=== PATIENT | female | born 1940 | race American Indian/Alaskan Native ===

== ENCOUNTER 2017-10-07 23:06 | Inpatient (IN) | payer MEDICAID ==
--- NOTE | 2017-10-07 23:17 | ED PDOC ---
Arrival/HPI - General Chief Complaint: Altered Mental Status Time Seen by Provider: 10/07/17 23:10 Historian: EMS - History of Present Illness Narrative History of Present Illness (Text): 10/07/17 23:17 Aditi Sylvester is a 77 year old female who presents to the Emergency department brought in by EMS for shortness of breath and altered mental status. Family states patient has been weak and not eating for the past few days. Patient was given Duoneb and IV fluids in the field. Patient noted to be lethargic on arrival to Emergency department. Limited HPI and ROS secondary to patient's acuity of condition. Time/Duration: Other (tonight) Symptom Onset: Gradual Symptom Course: Worsening Activities at Onset: Light Context: Home Past Medical History - Provider Review Nursing Documentation Reviewed: Yes - Psychiatric Hx Substance Use: No Family/Social History - Physician Review Nursing Documentation Reviewed: Yes Family/Social History: Unknown Family HX Smoking Status: Never Smoked Hx Alcohol Use: No Hx Substance Use: No Allergies/Home Meds Allergies/Adverse Reactions: Allergies Unobtainable Allergy (Verified 10/07/17 23:13) Home Medications: Home Meds Medication Instructions Recorded Confirmed Unobtainable 10/07/17 10/08/17 Review of Systems - Review of Systems Systems not reviewed;Unavailable: Acuity of Condition Respiratory: SOB Neurological: Other (+altered mental status, +weakness) Physical Exam Vital Signs Reviewed: Yes Vital Signs Temp Pulse Resp BP Pulse Ox 10/08/17 10:11 74 18 139/93 H 100 10/08/17 08:10 99.0 F 10/08/17 07:30 69 19 171/85 H 100 10/08/17 06:54 69 19 150/99 H 100 10/08/17 05:00 77 18 129/90 100 10/08/17 03:05 81 23 134/97 H 100 10/08/17 00:25 91 H 23 132/71 100 10/07/17 23:39 100.7 F H 95 H 22 116/87 100 Temperature: Febrile Blood Pressure: Normal Pulse: Regular Appearance: Positive for: Non-Toxic Pain Distress: None Mental Status: Positive for: Lethargic - Systems Exam Head: Present: Atraumatic, Normocephalic Pupils: Present: PERRL Extroacular Muscles: Present: EOMI Conjunctiva: Present: Normal Mouth: Present: Moist Mucous Membranes Neck: Present: Normal Range of Motion Respiratory/Chest: Present: Clear to Auscultation Cardiovascular: Present: Regular Rate and Rhythm, Normal S1, S2. No: Murmurs Abdomen: Present: Normal Bowel Sounds. No: Tenderness, Distention, Peritoneal Signs Upper Extremity: Present: Normal Inspection. No: Cyanosis, Edema Lower Extremity: Present: Normal Inspection. No: Edema Neurological: Present: CN II-XII Intact, Motor Func Grossly Intact Skin: Present: Warm, Dry, Normal Color. No: Rashes Psychiatric: Present: Lethargic Medical Decision Making ED Course and Treatment: 10/07/17 23:17 Impression: 77 year old female brought in by EMS for AMS and shortness of breath. Plan: -- CT Head w/o contrast -- EKG -- Chest X-ray -- Labs, ABG, cardiac enzymes, ammonia level, alcohol level, blood cultures -- Urinalysis, urine drug screen, urine cultures -- Reassess and disposition Progress Notes: 10/07/17 23:49 Reviewed EKG, sinus rhythm at 94 bpm. LAD. LVH. Non-specific ST/T wave changes. 10/08/17 02:29 Chest X-ray reviewed, shows no acute processes. 10/08/17 02:33 Case discussed with medical director cotton farmer, who is aware and agrees with plan. 10/08/17 03:[address] Kang, who is aware and agrees with plan. Pt admitted for dehydration under the hospitalist service. - Lab Interpretations Microbiology Results: Microbiology Results 10/07/17 23:39 Blood-Venous Blood Culture - Preliminary NO GROWTH AFTER 3 DAYS 10/07/17 23:15 Blood-Venous Blood Culture - Preliminary NO GROWTH AFTER 3 DAYS 10/08/17 03:03 Urine,Clean Catch Urine Culture - Final No Growth (<1,000 CFU/ML) Lab Results: 10/08/17 05:50 10/08/17 05:50 Lab Results 10/08/17 07:50: pCO2 63 H, pO2 139.0 H, HCO3 31.7 H, ABG pH 7.31 L, ABG Total CO2 33.6 H, ABG O2 Saturation 99.9 H, ABG O2 Content 13.7 L, ABG Base Excess 4.2 H, ABG Hemoglobin 9.9 L, ABG Carboxyhemoglobin 1.8 H, POC ABG HHb (Measured ) 0.1, ABG Methemoglobin 1.4, ABG O2 Capacity 13.7 L, Hgb O2 Saturation 96.6, FiO2 40.0 10/08/17 05:50: RPR Nonreactive 10/08/17 05:50: TSH 3rd Generation 0.94 10/08/17 05:50: Vitamin B12 > 1000 H, Folate > 20.0 10/08/17 05:50: WBC 6.4 D, RBC 3.68, Hgb 10.7 L, Hct 37.6, MCV 102.2, MCH 29.1 , MCHC 28.5 L, RDW 14.4, Plt Count 223, MPV 10.8 10/08/17 05:50: Sodium 162 H*, Potassium 4.7, Chloride 121 H, Carbon Dioxide 29 , Anion Gap 17, BUN 108 H, Creatinine 4.6 H, Est GFR ( Amer) 11, Est GFR (Non-Af Amer) 9, Random Glucose 126 H, Calcium 8.7 10/08/17 03:03: Urine Opiates Screen Negative, Urine Methadone Screen Negative, Ur Barbiturates Screen Negative, Ur Phencyclidine Scrn Negative, Ur Amphetamines Screen Negative, U Benzodiazepines Scrn Negative, U Oth Cocaine Metabols Negative, U Cannabinoids Screen Negative 10/08/17 03:03: Urine Color Yellow, Urine Appearance Clear, Urine pH 6.0, Ur Specific [place] 1.015, Urine Protein 100 H, Urine Glucose (UA) Negative, Urine Ketones Negative, Urine Blood Trace-intact H, Urine Nitrate Negative, Urine Bilirubin Negative, Urine Urobilinogen 0.2, Ur Leukocyte Esterase Negative, Urine RBC 0 - 2, Urine WBC 0 - 2, Ur Epithelial Cells 0 - 2 10/08/17 01:04: Influenza Typ A,B (EIA) Negative for flu a/b 10/08/17 00:30: pCO2 65 H, pO2 416.0 H, HCO3 31.3 H, ABG pH 7.29 L, ABG Total CO2 33.3 H, ABG O2 Saturation 100.0 H, ABG Base Excess 2.8, ABG Potassium 4.5, Glucose 174 H, Lactate 1.1, FiO2 100.0, Sodium 162.0 H*, Chloride 126.0 H, Arterial Blood Potassium 4.5 10/07/17 23:39: Acetaminophen < 10.0 L 10/07/17 23:39: Ammonia 14 10/07/17 23:39: Alcohol, Quantitative < 10 10/07/17 23:39: Sodium 165 H*, Potassium 4.6, Chloride 122 H, Carbon Dioxide 31 , Anion Gap 16, BUN 110 H, Creatinine 4.9 H, Est GFR ( Amer) 10, Est GFR (Non-Af Amer) 9, Random Glucose 161 H, Calcium 8.8, Phosphorus 4.0, Magnesium 3.0 H, Total Bilirubin 0.3, AST 35, ALT 32, Alkaline Phosphatase 77, Lactate Dehydrogenase 661, Total Creatine Kinase 83, Troponin I 0.06, Total Protein 7.5 , Albumin 3.6, Globulin 3.9, Albumin/Globulin Ratio 0.9 L 10/07/17 23:39: PT 10.7, INR 0.94, APTT 34.5 10/07/17 23:39: WBC 8.1, RBC 3.91, Hgb 11.5 L, Hct 39.9, MCV 102.0, MCH 29.4, MCHC 28.8 L, RDW 14.4, Plt Count 238, MPV 11.3 H, Gran % 57.1, Lymph % (Auto) 31.8, Rhea % (Auto) 10.9 H, Eos % (Auto) 0.0 L, Baso % (Auto) 0.2, Gran # 4.63, Lymph # 2.6, Rhea # 0.9 H, Eos # 0.0, Baso # 0.02 10/07/17 23:28: POC Glucose (mg/dL) 180 H I have reviewed the lab results: Yes - RAD Interpretation Radiology Orders: 10/07/17 23:21 HEAD W/O CONTRAST [CT] Stat 10/08/17 00:21 CHEST ONE VIEW [RAD] Stat 10/08/17 04:13 HEAD W/O CONTRAST [CT] Stat Inspector Technician: ED Physician - EKG Interpretation Interpreted by ED Physician: Yes Type: 12 lead EKG - Medication Orders Current Medication Orders: Acetaminophen (Tylenol 325mg Tab) 650 mg PO Q4H PRN PRN Reason: Fever >100.4 F Albuterol/Ipratropium (Duoneb 3 Mg/0.5 Mg (3 Ml) Ud) 3 ml IH [id number] [facility] Last Admin: 10/11/17 14:02 Dose: 3 ml Cholecalciferol (Vitamin D) 2,000 intlu PO DAILY [facility] Last Admin: 10/11/17 09:04 Dose: 2,000 intlu Famotidine (Pepcid) 20 mg IVP DAILY [facility] Last Admin: 10/11/17 12:11 Dose: Heparin Sodium (Porcine) (Heparin) 5,000 units SC Q8 DAVID PRN Reason: Protocol Last Admin: 10/11/17 13:55 Dose: 5,000 units Subcutaneous Administrations Document 10/11/17 13:55 GLI (Rec: 10/11/17 13:[address]) Injection Site MAR Injection Site Right Abdomen Charges for Administration # of Subcutaneous Administrations 1 Hydralazine HCl (Apresoline) 10 mg IVP Q8H PRN PRN Reason: Systolic Blood Pressure Last Admin: 10/10/17 11:15 Dose: 10 mg IVP Administration Document 10/10/17 11:15 GLI (Rec: 10/10/17 11:[address]) Charges for Administration # of IVP Administrations 1 MAR Pulse and Blood Pressure Document 10/10/17 11:15 GLI (Rec: 10/10/17 11:15 [facility] Pulse Pulse Rate (60-90) 41 Blood Pressure Blood Pressure (100/60-150/90) 184/103 Ceftriaxone Sodium (Rocephin 1 Gram Ivpb) 1 gm in 100 mls @ 100 mls/hr IVPB DAILY [facility] PRN Reason: Protocol Last Admin: 10/11/17 09:04 Dose: 100 mls/hr eMAR Start Stop Document 10/11/17 09:04 GLI (Rec: 10/11/17 09:04 GLI [id number] Intravenous Solution Start Date 10/11/17 Start Time 09:04 End Date 10/11/17 Azithromycin (Zithromax 500mg In Ns) 500 mg in 250 mls @ 167 mls/hr IVPB DAILY [facility] PRN Reason: Protocol Last Admin: 10/11/17 09:08 Dose: 167 mls/hr eMAR Start Stop Document 10/11/17 09:08 GLI (Rec: 10/11/17 09:08 GLI [id number]) Intravenous Solution Start Date 10/11/17 Start Time 09:08 End Date 10/11/17 Midazolam 100 mg/100ml in NS (Midazolam 100 Mg/100ml In Ns) 100 mg in 100 mls @ 1 mls/hr IV .Q24H PRN; Protocol; 1 MG/HR PRN Reason: Agitation Last Admin: 10/11/17 12:20 Dose: 2 mg/hr, 2 mls/hr eMAR Start Stop Document 10/11/17 12:20 GLI (Rec: 10/11/17 12:21 [id number]) Intravenous Solution Start Date 10/11/17 Start Time 12:21 End Date 10/11/17 Titration Intervention Document 10/11/17 12:20 GLI (Rec: 10/11/17 12:21 GLI [id number]) Titration Intake Cumulative Intake (Rx) 100 Waste Amount 0 Container Volume 100 Titration Dosing Titration Dose 2 IV Rate 2 Intake/Decrease Started/Running Cumulative Dose 100 Methylprednisolone (Solu-Medrol) 20 mg IVP Q12 [facility] Last Admin: 10/11/17 12:11 Dose: Discontinued Medications Albuterol/Ipratropium (Duoneb 3 Mg/0.5 Mg (3 Ml) Ud) 3 ml IH Q4H [facility] Last Admin: 10/08/17 20:23 Dose: 3 ml Albuterol/Ipratropium (Duoneb 3 Mg/0.5 Mg (3 Ml) Ud) 3 ml IH [id number] Last Admin: 10/11/17 08:43 Dose: Calcium Gluconate (Calcium Gluconate Iv) 1,000 mg IVP ONCE ONE Stop: 10/09/17 05:13 Last Admin: 10/09/17 05:31 Dose: 1,000 mg IVP Administration Document 10/09/17 05:31 A (Rec: 10/09/17 05:31 [facility] [id number]) Charges for Administration # of IVP Administrations 1 Dextrose (Dextrose 50% Inj) 50 ml IVP ONCE ONE Stop: 10/09/17 05:13 Last Admin: 10/09/17 05:30 Dose: 50 ml IVP Administration Document 10/09/17 05:30 [facility] (Rec: 10/09/17 05:31 [id number] Charges for Administration # of IVP Administrations 1 Sodium Chloride (Sodium Chloride 0.45%) 1,000 mls @ 200 mls/hr IV .Q5H [facility] Last Admin: 10/08/17 07:10 Dose: 200 mls/hr eMAR Start Stop Document 10/08/17 07:10 JOL (Rec: 10/08/17 07:10 [id number]) Intravenous Solution Start Date 10/08/17 Start Time 07:10 Sodium Chloride (Sodium Chloride 0.45%) 1,000 mls @ 100 mls/hr IV .Q10H [facility] Last Admin: 10/08/17 13:37 Dose: 100 mls/hr eMAR Start Stop Document 10/08/17 13:37 JUR (Rec: 10/08/17 13:37 JUR [facility]) Intravenous Solution Start Date 10/08/17 Start Time 12:30 Sodium Chloride (Sodium Chloride 0.9%) 1,000 mls @ 60 mls/hr IV .[id number] [facility] Last Admin: 10/08/17 15:31 Dose: 60 mls/hr eMAR Start Stop Document 10/08/17 15:31 JUR (Rec: 10/08/17 15:31 JUR [facility]) Intravenous Solution Start Date 10/08/17 Start Time 15:15 Propofol (Diprivan) 1,000 mg in 100 mls @ 1.837 mls/hr IV .Q24H PRN; Protocol; 5 MCG/KG/MIN PRN Reason: TITRATE PER MD ORDER Last Titration: 10/10/17 03:00 Dose: 13.6 mcg/kg/min, 5 mls/hr Yates Agitation Sedation Document 10/10/17 03:00 REGINA (Rec: 10/10/17 06:56 REGINA [id number]) Yates Agitation Sedation Scale Yates Agitation Sedation Scale Score +1 Restless Anxious bu movements not aggressive vigorous Titration Intervention Document 10/10/17 03:00 REGINA (Rec: 10/10/17 06:56 REGINA [id number]) Titration Intake Titration Intake 10 Cumulative Intake 10 Cumulative Intake (Rx) 110 Waste Amount 0 Container Volume 90 Titration Dosing Titration Dose 13.6 IV Rate 5 Intake/Decrease Decreased Cumulative Dose 1100 Lactated Ringer's (Lactated Ringer's) 1,000 mls @ 150 mls/hr IV .Q6H40M [facility] Last Admin: 10/08/17 16:56 Dose: 150 mls/hr eMAR Start Stop Document 10/08/17 16:56 JUR (Rec: 10/08/17 16:56 JUR [facility]) Intravenous Solution Start Date 10/08/17 Start Time 16:40 Lactated Ringer's (Lactated Ringer's) 1,000 mls @ 100 mls/hr IV .Q10H [facility] Last Admin: 10/08/17 21:52 Dose: 100 mls/hr eMAR Start Stop Document 10/08/17 21:52 MHA (Rec: 10/08/17 21:52 [facility]) Intravenous Solution Start Date 10/08/17 Start Time 21:52 Lactated Ringer's (Lactated Ringer's) 1,000 mls @ 125 mls/hr IV .Q8H [facility] Last Admin: 10/09/17 05:50 Dose: 125 mls/hr eMAR Start Stop Document 10/09/17 05:50 MHA (Rec: 10/09/17 05:[address]) Intravenous Solution Start Date 10/09/17 Start Time 05:50 Sodium Chloride (Sodium Chloride 0.45%) 1,000 mls @ 150 mls/hr IV .Q6H40M DAVID Sodium Chloride (Sodium Chloride 0.45%) 1,000 mls @ 100 mls/hr IV .Q10H [facility] Last Admin: 10/10/17 01:30 Dose: 100 mls/hr eMAR Start Stop Document 10/10/17 01:30 REGINA (Rec: 10/10/17 03:20 REGINA [place] [id number]) Intravenous Solution Start Date 10/10/17 Start Time 01:30 End Date 10/10/17 End time 11:30 Total Infusion Time 600 Sodium Chloride (Sodium Chloride 0.45%) 1,000 mls @ 50 mls/hr IV .Q20H [facility] Last Admin: 10/11/17 06:43 Dose: 50 mls/hr eMAR Start Stop Document 10/11/17 06:43 PM (Rec: 10/11/17 06:44 PM [id number]) Intravenous Solution Start Date 10/10/17 Start Time 10:15 Insulin Human Regular (Humulin R) 10 units IVP ONCE ONE Stop: 10/09/17 05:12 Last Admin: 10/09/17 05:49 Dose: 10 units MAR Blood Glucose Document 10/09/17 05:49 MHA (Rec: 10/09/17 05:49 MHA [id number] Blood Glucose Finger Stick Blood Glucose (70-120) 104 IVP Administration Document 10/09/17 05:49 MHA (Rec: 10/09/17 05:49 MHA [id number]) Charges for Administration # of IVP Administrations 1 Methylprednisolone (Solu-Medrol) 40 mg IVP Q8H [facility] Last Admin: 10/10/17 05:12 Dose: 40 mg IVP Administration Document 10/10/17 05:12 REGINA (Rec: 10/10/17 05:12 REGINA [id number]) Charges for Administration # of IVP Administrations 1 Methylprednisolone (Solu-Medrol) 40 mg IVP Q12 [facility] Last Admin: 10/11/17 09:04 Dose: 40 mg IVP Administration Document 10/11/17 09:04 GLI (Rec: 10/11/17 09:04 GLI [id number]) Charges for Administration # of IVP Administrations 1 Pantoprazole Sodium (Protonix Ec Tab) 40 mg PO 0600 [facility] Last Admin: 10/08/17 07:10 Dose: Not Given Non-Admin Reason: Patient Lethargic Pantoprazole Sodium (Protonix Inj) 40 mg IVP DAILY [facility] Last Admin: 10/11/17 09:03 Dose: 40 mg IVP Administration Document 10/11/17 09:03 GLI (Rec: 10/11/17 09:04 GLI [id number]) Charges for Administration # of IVP Administrations 1 Pneumococcal Polyvalent Vaccine (Pneumovax 23 Vaccine) 0.5 ml IM .ONCE ONE Stop: 10/08/17 13:34 - Scribe Statement The provider has reviewed the documentation as recorded by the Pabloibvivi Gusman Provider Scribe Attestation: All medical record entries made by the Scribe were at my direction and personally dictated by me. I have reviewed the chart and agree that the record accurately reflects my personal performance of the history, physical exam, medical decision making, and the department course for this patient. I have also personally directed, reviewed, and agree with the discharge instructions and disposition. Disposition/Present on Arrival - Present on Arrival Any Indicators Present on Arrival: No History of DVT/PE: No History of Uncontrolled Diabetes: No Urinary Catheter: No History of Decub. Ulcer: No History Surgical Site Infection Following: None - Disposition Have Diagnosis and Disposition been Completed?: Yes Diagnosis: Respiratory compromise, Dehydration Disposition: HOSPITALIZED Disposition Time: 07:00 Patient Problems: Current Active Problems Problem Status Onset Abnormal CT scan, head Acute Respiratory compromise Acute Toxic metabolic encephalopathy Acute Condition: SERIOUS
[2017-10-08 00:03] LABS: BASO # 0.02 K/mm3 (0.0-2.0); BASO % 0.2 % (0.0-3.0); GRAN # 4.63 (1.4-6.5); GRAN % 57.1 % (50.0-68.0); HEMOGLOBIN 11.5 g/dL (12.0-16.0); LYMPH # 2.6 (1.2-3.4); LYMPH % 31.8 % (22.0-35.0); MEAN CORPUSCULAR HEMOGLOBIN 29.4 pg (25.0-35.0); MEAN CORPUSCULAR HGB CONC 28.8 g/dl (31.0-37.0); MEAN PLATELET VOLUME 11.3 fl (7.0-11.0); MONO # 0.9 (0.1-0.6); MONO % 10.9 % (1.0-6.0); RBC 3.91 10^6/uL (3.5-6.1); RED CELL DISTRIBUTION WIDTH 14.4 % (11.5-14.5); WHITE BLOOD COUNT 8.1 10^3/ul (4.5-11.0)
[2017-10-08 00:18] LABS: INR 0.94 (0.93-1.08); PARTIAL THROMBOPLASTIN TIME 34.5 Seconds (25.1-36.5); PROTHROMBIN TIME 10.7 SECONDS (9.4-12.5)
[2017-10-08 00:31] LABS: TROPONIN I 0.06 ng/mL
[2017-10-08 00:37] LABS: ALB/GLOB RATIO 0.9 (1.1-1.8); ALBUMIN 3.6 g/dL (3.0-4.8); CALCIUM 8.8 mg/dL (8.4-10.5)
[2017-10-08] MEDS ORDERED: Sodium Chloride 0.9% 1,000 ML IV SCH ×2 (00:45→15:15)
[2017-10-08 00:54] LABS: ARTERIAL BLOOD GAS HCO3 31.3 mmol/L (21-28); ARTERIAL BLOOD GAS PCO2 65 mm/Hg (35-45); ARTERIAL BLOOD GAS PH 7.29 (7.35-7.45); ARTERIAL BLOOD GAS TCO2 33.3 mmol.L (22-28)
[2017-10-08] MEDS: Sodium Chloride 0.45% 1,000 ML IV SCH ×2 (01:15→07:10)
--- NOTE | 2017-10-08 03:20 | CT ---
EXAM: CT Head Without Intravenous Contrast EXAM DATE/TIME: 10/07/2017 11:21 PM CLINICAL HISTORY: 77 years old, female; Signs and symptoms; Altered mental status/memory loss; Additional info: AMS TECHNIQUE: Axial computed tomography images of the head/brain without intravenous contrast. All CT scans at this facility use one or more dose reduction techniques, viz.: automated exposure control; ma/kV adjustment per patient size (including targeted exams where dose is matched to indication; i.e. head); or iterative reconstruction technique. Coronal and sagittal reformatted images were created and reviewed. COMPARISON: No relevant prior studies available. FINDINGS: LIMITATIONS: Asymmetric positioning of the patient's head in the CT gantry. Mild streak/motion artifact. BRAIN: The left inferior temporal lobe is partially cut off of the scan. A 3 mm round hyperdense focus is seen in the visualized portions of the left inferior temporal lobe, image 1/series 4. This has a CT attenuation of 60 Hounsfield units. It could represent artifact, but cannot rule out a tiny focus of hemorrhage. 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 Areas of hypodensity in the white matter bilaterally, nonspecific in appearance, but most likely representing chronic small vessel ischemic changes, in a patient of this age. Diffuse, marked, age-related cortical atrophy and ventriculomegaly. No other significant abnormality identified. No acute extra-axial fluid collections visualized. No evidence of significant mass effect within the brain. VENTRICLES: See above. BONES/JOINTS: No acute fractures or other acute bony abnormality noted. SOFT TISSUES: No acute abnormality of the visualized soft tissues is seen. VASCULATURE: Vascular calcification and ectasia. SINUSES: Mucosal thickening in the right sphenoid sinus. Remaining visualized paranasal sinuses appear clear. MASTOID AIR CELLS: Fluid throughout the right mastoid air cells, compatible with right mastoiditis. Left mastoid air cells appear clear. IMPRESSION: - Artifact versus a tiny 3 mm focus of hemorrhage in the left inferior temporal lobe. The left inferior temporal lobe is partially cut off of the scan, and recommend reimaging through this area to confirm artifact versus a tiny hemorrhage, unless otherwise clinically indicated. - Otherwise, no evidence of a significant acute intracranial process. - Evidence of chronic ischemic changes, as described. - See above for remaining findings.
[2017-10-08 03:26] LABS: URINE BILIRUBIN NEGATIVE (NEGATIVE); URINE BLOOD TRACE-INTACT (NEGATIVE); URINE GLUCOSE (UA) NEGATIVE (NEGATIVE); URINE LEUKOCYTE ESTERASE NEGATIVE Leu/uL (NEGATIVE); URINE NITRATE NEGATIVE (NEGATIVE); URINE PROTEIN 100 mg/dL (<30 mg/dL); URINE UROBILINOGEN 0.2 E.U./dL (<1 E.U./dL)
[2017-10-08 03:34] LABS: BARBITURATES, UR NEGATIVE (NEGATIVE); BENZODIAZEPINES, UR NEGATIVE (NEGATIVE); OPIATES, UR NEGATIVE (NEGATIVE); PHENCYCLIDINE, UR NEGATIVE (NEGATIVE)
[2017-10-08 03:39] LABS: URINE APPEARANCE CLEAR (CLEAR); URINE COLOR YELLOW (YELLOW)
[2017-10-08 03:40] LABS: URINE EPITHELIAL CELLS 0 - 2 /hpf (0-5); URINE RBC 0 - 2 /hpf (0-2); URINE WBC 0 - 2 /hpf (0-6)
--- NOTE | 2017-10-08 04:32 | CP.PCM.HP ---
<Eladio Mckinney - Last Filed: 10/08/17 04:21> History of Present Illness - History of Present Illness History of Present Illness: 77 year old female with past medical history of hypertension, asthma, and questionable Parkinson's disease presents to the ED for 3 day history of AMS. Patient is accompanied by her , daughter, and son at bedside. Patient's family are poor historians and much of history obtained is from patient's daughter Kristyn, who was spoken with over the phone. Patient has had decreased appetite over the last several days and has not been eating or drinking. During this time, her mentation changed and she became more altered. At baseline, she is conversant and oriented according to her family at bedside. As per daughter Kristyn, patient started becoming forgetful in 2010 and in 2013 became much worse to where she would fall constantly and have trouble walking. Patient had a questionable stroke in 2006 in [place]. Patient moved from [place] in early 2016 along with her . Patient normally resides in [place] with daughter Kristyn, but has been visiting family in [place] since 09/14/17. She has short term memory problems, but is able to recall detention memories. Patient has has only been complaining of runny nose and congestion lately. Patient was at one time on Risperdone, but stopped due to possible extrapyramidal side effects. PMH: Hypertension, Asthma, ?Parkinson's PSH: No surgical history Family History: Noncontributory Social History: No smoking, alcohol, or illicit drug use. Patient requires help with ADLs, unable to ambulate on her own. Allergies: NKDA Medications: Unknown Present on Admission - Present on Admission Any Indicators Present on Admission: No Review of Systems - Review of Systems Systems not reviewed;Unavailable: Altered Mental Status Past Patient History - Past Social History Smoking Status: Never Smoked - PSYCHIATRIC Hx Substance Use: No Meds Allergies/Adverse Reactions: Allergies Allergy/AdvReac Type Severity Reaction Status Date / Time Unobtainable Allergy Verified 10/07/17 23:13 Physical Exam - Constitutional Appears: Non-toxic, No Acute Distress, Confused - Head Exam Head Exam: ATRAUMATIC, NORMAL INSPECTION, NORMOCEPHALIC - Eye Exam Eye Exam: Normal appearance - ENT Exam ENT Exam: Mucous Membranes Moist - Respiratory Exam Respiratory Exam: Clear to Auscultation Bilateral, NORMAL BREATHING PATTERN - Cardiovascular Exam Cardiovascular Exam: RRR, +S1, +S2 - GI/Abdominal Exam GI & Abdominal Exam: Normal Bowel Sounds, Soft. absent: Tenderness - Extremities Exam Extremities exam: Positive for: normal inspection. Negative for: calf tenderness, pedal edema - Neurological Exam Neurological exam: Alert Additional comments: Oriented x1 Resting tremor Lip smacking - Psychiatric Exam Psychiatric exam: Normal Mood - Skin Skin Exam: Intact, Normal Color, Warm Results - Vital Signs Recent Vital Signs: Last Vital Signs Temp 100.7 F H 10/07/17 23:39 Pulse 81 10/08/17 03:05 Resp 23 10/08/17 03:05 BP 134/97 H 10/08/17 03:05 Pulse Ox 100 10/08/17 03:05 - Labs Result Diagrams: 10/07/17 23:39 10/07/17 23:39 Labs: Laboratory Results - last 24 hr 10/08/17 10/08/17 03:03 03:03 Urine Color Yellow Urine Appearance Clear Urine pH 6.0 Ur Specific [place] 1.015 Urine Protein 100 H Urine Glucose (UA) Negative Urine Ketones Negative Urine Blood Trace-intact H Urine Nitrate Negative Urine Bilirubin Negative Urine Urobilinogen 0.2 Ur Leukocyte Esterase Negative Urine RBC 0 - 2 Urine WBC 0 - 2 Ur Epithelial Cells 0 - 2 Urine Opiates Screen Negative Urine Methadone Screen Negative Ur Barbiturates Screen Negative Ur Phencyclidine Scrn Negative Ur Amphetamines Screen Negative U Benzodiazepines Scrn Negative U Oth Cocaine Metabols Negative U Cannabinoids Screen Negative Assessment & Plan - Assessment and Plan (Free Text) Plan: 77 year old female with past medical history with hypertension, asthma, and questionable parkinson's disease presents with altered mental status in the setting of failure to thrive. Patient received Head CT in ED which showed possible intracranial hemorrhage vs artifact, will repeat. Patient also with hypernatremia, will correct slowly. Will obtain neurology consult. Patient also dehydrated as evidence of AVERY, will trend BUN/Creatinine. Patient also noted to have respiratory acidosis with metabolic compensation on ABG, will place patient BIPAP and recheck ABG with AM labs. 1. AMS Dementia vs Delirium TSH, RPR, Vitamin B12, Folate ordered Possibly secondary to Hypernatremia Repeat Head CT Neurology consult, Dr. Matias 2. Failure to thrive Dehydrated, no oral intake over several days Swallow eval Travel Journalist Referral Calorie count 3. Hypernatremia 1/2 NS at 200 cc/hr Will recheck with AM labs 4. AVERY Likely secondary to dehydration Urine electrolytes ordered Urine culture pending 5. Respiratory acidosis with metabolic compensation BIPAP for 2 hours Recheck ABG in AM 6. Prophylaxis Protonix Will hold DVT prophylaxis until intracranial hemorrhage is ruled out Faye, PGY-2 <PearlGiselaSony Q - Last Filed: 10/08/17 05:38> Physical Exam - ENT Exam ENT Exam: Mucous Membranes Dry. absent: Mucous Membranes Moist - Rectal Exam Rectal Exam: Deferred - Neurological Exam Additional comments: oriented x 1; follows commands - Psychiatric Exam Psychiatric exam: Flat Affect Results - Vital Signs Recent Vital Signs: Last Vital Signs Temp 100.7 F H 10/07/17 23:39 Pulse 77 10/08/17 05:00 Resp 18 10/08/17 05:00 BP 129/90 10/08/17 05:00 Pulse Ox 100 10/08/17 05:00 - Labs Result Diagrams: 10/07/17 23:39 10/07/17 23:39 Labs: Laboratory Results - last 24 hr 10/08/17 10/08/17 03:03 03:03 Urine Color Yellow Urine Appearance Clear Urine pH 6.0 Ur Specific [place] 1.015 Urine Protein 100 H Urine Glucose (UA) Negative Urine Ketones Negative Urine Blood Trace-intact H Urine Nitrate Negative Urine Bilirubin Negative Urine Urobilinogen 0.2 Ur Leukocyte Esterase Negative Urine RBC 0 - 2 Urine WBC 0 - 2 Ur Epithelial Cells 0 - 2 Urine Opiates Screen Negative Urine Methadone Screen Negative Ur Barbiturates Screen Negative Ur Phencyclidine Scrn Negative Ur Amphetamines Screen Negative U Benzodiazepines Scrn Negative U Oth Cocaine Metabols Negative U Cannabinoids Screen Negative Attending/Attestation - Attestation I have personally seen and examined this patient.: Yes I have fully participated in the care of the patient.: Yes I have reviewed all pertinent clinical information: Yes Notes (Text): 10/08/17 05:26 I agree with the note and exam by the resident with the addition/exception of the followin77 y/o Jeffrey female with a PMhx Htn and also likely with dementia (?Parkinson 's) presents to the ED accompanied by her family for failure to thrive. The patient has not been eating well over the past 6 months, however has rapidly deteriorated and not been her usual self according to the family over the past 2 -3 days. She has been increasingly weak and lethargic, without any ambulation despite assistance lately either. hypovolemic hyponatremia - bmp Q4 to avoid rapid overcorrection hypercapnic respiratory failure; will place on small trial of bipap and repeat ABG ?Acute CVA vs intraparenchymal bleed - CT reviewed, there's no midline shift or significant edema, so no indication for NeuroSx at this time, will consult neurology and place her on Neurochecks initially with increased frequency until Q4H FTT - nutrition eval for calorie count; social work faculty member eval; PT/OT
--- NOTE | 2017-10-08 04:50 | CT ---
EXAM: CT Head Without Intravenous Contrast EXAM DATE/TIME: 10/08/2017 4:13 AM CLINICAL HISTORY: 77 years old, female; Abnormal findings; Abnormal radiologic findings of head/skull; Not specified; Additional info: R/O intracranial hemorrhage TECHNIQUE: Axial computed tomography images of the head/brain without intravenous contrast. All CT scans at this facility use one or more dose reduction techniques, viz.: automated exposure control; ma/kV adjustment per patient size (including targeted exams where dose is matched to indication; i.e. head); or iterative reconstruction technique. Coronal and sagittal reformatted images were created and reviewed. COMPARISON: Head CT done about 2 hours earlier, at 2:18 a.m. FINDINGS: LIMITATIONS: Mild streak/motion artifact. BRAIN: Again seen in the left temporal lobe (image 13/series 4) is a tiny 3 mm round focus of hyperdensity, with a CT attenuation of 65 Hounsfield units, and cannot exclude a tiny focus of acute intraparenchymal hemorrhage in the left temporal lobe. Focal areas of low density in the basal ganglia bilaterally, most compatible with multiple, bilateral old/chronic lacunar infarcts. Areas of hypodensity in the white matter bilaterally, nonspecific in appearance, but most likely representing chronic small vessel ischemic changes, in a patient of this age. Diffuse, marked, age-related cortical atrophy and ventriculomegaly. No other significant abnormality identified. No acute extra-axial fluid collections visualized. No evidence of midline shift, ventricular effacement, basilar cistern effacement, or other significant intracranial mass effect. VENTRICLES: See above. BONES/JOINTS: No acute fractures or other acute bony abnormality noted. SOFT TISSUES: No acute abnormality of the visualized soft tissues is seen. VASCULATURE: Diffuse vascular calcification and ectasia. SINUSES: Mild sinus inflammatory disease. There is mild mucosal thickening in the right sphenoid and bilateral ethmoid sinuses. MASTOID AIR CELLS: Fluid throughout the right mastoid air cells, suspicious for mastoiditis. IMPRESSION: - 3 mm round hyperdensity in the left temporal lobe inferiorly, and cannot exclude a tiny acute intraparenchymal bleed. - See above for remaining findings.
[2017-10-08] MEDS ORDERED: Pantoprazole 40 mg EC Tab PO SCH (06:00)
[2017-10-08 06:17] LABS: HEMOGLOBIN 10.7 g/dL (12.0-16.0); MEAN CELL VOLUME 102.2 fl (80.0-105.0); MEAN CORPUSCULAR HEMOGLOBIN 29.1 pg (25.0-35.0); MEAN CORPUSCULAR HGB CONC 28.5 g/dl (31.0-37.0); MEAN PLATELET VOLUME 10.8 fl (7.0-11.0); RBC 3.68 10^6/uL (3.5-6.1); RED CELL DISTRIBUTION WIDTH 14.4 % (11.5-14.5); WHITE BLOOD COUNT 6.4 10^3/ul (4.5-11.0)
--- NOTE | 2017-10-08 07:12 | ED PDOC ---
Physical Exam Vital Signs Reviewed: Yes Vital Signs Temp Pulse Resp BP Pulse Ox 10/08/17 10:11 74 18 139/93 H 100 10/08/17 08:10 99.0 F 10/08/17 07:30 69 19 171/85 H 100 10/08/17 06:54 69 19 150/99 H 100 10/08/17 05:00 77 18 129/90 100 10/08/17 03:05 81 23 134/97 H 100 10/08/17 00:25 91 H 23 132/71 100 10/07/17 23:39 100.7 F H 95 H 22 116/87 100 Temperature: Febrile Blood Pressure: Normal Pulse: Tachycardic Respiratory Rate: Normal Finger Stick Blood Glucose: 180 Medical Decision Making ED Course and Treatment: 10/08/17 07:11 Patient endorsed to me by Dr. Garvey at 07:00, pending repeat ABG scheduled at 07:30 and ICU re-evaluation. 10/08/17 10:45 Patient accepted to the ICU. - Lab Interpretations Lab Results: 10/08/17 05:50 10/08/17 05:50 Lab Results 10/08/17 07:50: pCO2 63 H, pO2 139.0 H, HCO3 31.7 H, ABG pH 7.31 L, ABG Total CO2 33.6 H, ABG O2 Saturation 99.9 H, ABG O2 Content 13.7 L, ABG Base Excess 4.2 H, ABG Hemoglobin 9.9 L, ABG Carboxyhemoglobin 1.8 H, POC ABG HHb (Measured ) 0.1, ABG Methemoglobin 1.4, ABG O2 Capacity 13.7 L, Hgb O2 Saturation 96.6, FiO2 40.0 10/08/17 05:50: TSH 3rd Generation 0.94 10/08/17 05:50: Vitamin B12 > 1000 H, Folate > 20.0 10/08/17 05:50: WBC 6.4 D, RBC 3.68, Hgb 10.7 L, Hct 37.6, MCV 102.2, MCH 29.1 , MCHC 28.5 L, RDW 14.4, Plt Count 223, MPV 10.8 10/08/17 05:50: Sodium 162 H*, Potassium 4.7, Chloride 121 H, Carbon Dioxide 29 , Anion Gap 17, BUN 108 H, Creatinine 4.6 H, Est GFR ( Amer) 11, Est GFR (Non-Af Amer) 9, Random Glucose 126 H, Calcium 8.7 10/08/17 03:03: Urine Opiates Screen Negative, Urine Methadone Screen Negative, Ur Barbiturates Screen Negative, Ur Phencyclidine Scrn Negative, Ur Amphetamines Screen Negative, U Benzodiazepines Scrn Negative, U Oth Cocaine Metabols Negative, U Cannabinoids Screen Negative 10/08/17 03:03: Urine Color Yellow, Urine Appearance Clear, Urine pH 6.0, Ur Specific [place] 1.015, Urine Protein 100 H, Urine Glucose (UA) Negative, Urine Ketones Negative, Urine Blood Trace-intact H, Urine Nitrate Negative, Urine Bilirubin Negative, Urine Urobilinogen 0.2, Ur Leukocyte Esterase Negative, Urine RBC 0 - 2, Urine WBC 0 - 2, Ur Epithelial Cells 0 - 2 10/08/17 01:04: Influenza Typ A,B (EIA) Negative for flu a/b 10/08/17 00:30: pCO2 65 H, pO2 416.0 H, HCO3 31.3 H, ABG pH 7.29 L, ABG Total CO2 33.3 H, ABG O2 Saturation 100.0 H, ABG Base Excess 2.8, ABG Potassium 4.5, Glucose 174 H, Lactate 1.1, FiO2 100.0, Sodium 162.0 H*, Chloride 126.0 H, Arterial Blood Potassium 4.5 10/07/17 23:39: Acetaminophen < 10.0 L 10/07/17 23:39: Ammonia 14 10/07/17 23:39: Alcohol, Quantitative < 10 10/07/17 23:39: Sodium 165 H*, Potassium 4.6, Chloride 122 H, Carbon Dioxide 31 , Anion Gap 16, BUN 110 H, Creatinine 4.9 H, Est GFR ( Amer) 10, Est GFR (Non-Af Amer) 9, Random Glucose 161 H, Calcium 8.8, Phosphorus 4.0, Magnesium 3.0 H, Total Bilirubin 0.3, AST 35, ALT 32, Alkaline Phosphatase 77, Lactate Dehydrogenase 661, Total Creatine Kinase 83, Troponin I 0.06, Total Protein 7.5 , Albumin 3.6, Globulin 3.9, Albumin/Globulin Ratio 0.9 L 10/07/17 23:39: PT 10.7, INR 0.94, APTT 34.5 10/07/17 23:39: WBC 8.1, RBC 3.91, Hgb 11.5 L, Hct 39.9, MCV 102.0, MCH 29.4, MCHC 28.8 L, RDW 14.4, Plt Count 238, MPV 11.3 H, Gran % 57.1, Lymph % (Auto) 31.8, [place] % (Auto) 10.9 H, Eos % (Auto) 0.0 L, Baso % (Auto) 0.2, Gran # 4.63, Lymph # 2.6, [place] # 0.9 H, Eos # 0.0, Baso # 0.02 10/07/17 23:28: POC Glucose (mg/dL) 180 H - RAD Interpretation Radiology Orders: 10/07/17 23:21 HEAD W/O CONTRAST [CT] Stat 10/08/17 00:21 CHEST ONE VIEW [RAD] Stat 10/08/17 04:13 HEAD W/O CONTRAST [CT] Stat 10/08/17 06:26 MRA HEAD WITHOUT CONTRAST [MRI] Routine MRA NECK WITHOUT CONTRAST [MRI] Routine 10/08/17 06:27 BRAIN WITHOUT CONTRAST [MRI] Routine - Medication Orders Current Medication Orders: Acetaminophen (Tylenol 325mg Tab) 650 mg PO Q4H PRN PRN Reason: Fever >100.4 F Albuterol/Ipratropium (Duoneb 3 Mg/0.5 Mg (3 Ml) Ud) 3 ml IH Q4H [facility] Last Admin: 10/08/17 13:12 Dose: 3 ml Heparin Sodium (Porcine) (Heparin) 5,000 units SC Q8 [facility] PRN Reason: Protocol Last Admin: 10/08/17 13:36 Dose: 5,000 units Subcutaneous Administrations Document 10/08/17 13:36 JUR (Rec: 10/08/17 13:37 JUR [facility] [employer]) Injection Site MAR Injection Site Right Arm Charges for Administration # of Subcutaneous Administrations 1 Hydralazine HCl (Apresoline) 10 mg IVP Q8H PRN PRN Reason: Systolic Blood Pressure Sodium Chloride (Sodium Chloride 0.45%) 1,000 mls @ 100 mls/hr IV .Q10H [facility] Last Admin: 10/08/17 13:37 Dose: 100 mls/hr eMAR Start Stop Document 10/08/17 13:37 JUR (Rec: 10/08/17 13:37 JUR [facility]) Intravenous Solution Start Date 10/08/17 Start Time 12:30 Ceftriaxone Sodium (Rocephin 1 Gram Ivpb) 1 gm in 100 mls @ 100 mls/hr IVPB DAILY DAVID PRN Reason: Protocol Last Admin: 10/08/17 13:37 Dose: 100 mls/hr eMAR Start Stop Document 10/08/17 13:37 JUR (Rec: 10/08/17 13:37 JUR [facility]) Intravenous Solution Start Date 10/08/17 Start Time 13:37 End Date 10/08/17 End time 14:37 Total Infusion Time 60 Azithromycin (Zithromax 500mg In Ns) 500 mg in 250 mls @ 167 mls/hr IVPB DAILY DAVID PRN Reason: Protocol Methylprednisolone (Solu-Medrol) 40 mg IVP Q8H [facility] Last Admin: 10/08/17 13:36 Dose: 40 mg IVP Administration Document 10/08/17 13:36 JUR (Rec: 10/08/17 13:36 JUR [facility]) Charges for Administration # of IVP Administrations 1 Pantoprazole Sodium (Protonix Inj) 40 mg IVP DAILY [facility] Discontinued Medications Sodium Chloride (Sodium Chloride 0.45%) 1,000 mls @ 200 mls/hr IV .Q5H [facility] Last Admin: 10/08/17 07:10 Dose: 200 mls/hr eMAR Start Stop Document 10/08/17 07:10 JOShayne (Rec: 10/08/17 07:10 [id number] Intravenous Solution Start Date 10/08/17 Start Time 07:10 Pantoprazole Sodium (Protonix Ec Tab) 40 mg PO 0600 [facility] Last Admin: 10/08/17 07:10 Dose: Not Given Non-Admin Reason: Patient Lethargic Pneumococcal Polyvalent Vaccine (Pneumovax 23 Vaccine) 0.5 ml IM .ONCE ONE Stop: 10/08/17 13:34 Disposition/Present on Arrival - Present on Arrival Any Indicators Present on Arrival: No History of DVT/PE: No History of Uncontrolled Diabetes: No Urinary Catheter: No History of Decub. Ulcer: No History Surgical Site Infection Following: None - Disposition Have Diagnosis and Disposition been Completed?: Yes Diagnosis: Respiratory compromise Disposition: HOSPITALIZED Disposition Time: 10:45 Patient Plan: Admission, ICU Patient Problems: Current Active Problems Problem Status Onset Abnormal CT scan, head Acute Toxic metabolic encephalopathy Acute Condition: SERIOUS
[2017-10-08 07:39] LABS: CALCIUM 8.7 mg/dL (8.4-10.5)
[2017-10-08 07:58] LABS: ARTERIAL BLOOD GAS HCO3 31.7 mmol/L (21-28); ARTERIAL BLOOD GAS HEMOGLOBIN 9.9 g/dL (11.7-17.4); ARTERIAL BLOOD GAS O2 CAPACITY 13.7 mL/dl (16-24); ARTERIAL BLOOD GAS O2 CONTENT 13.7 ML/dl (15-23); ARTERIAL BLOOD GAS O2 SAT 99.9 % (95-98); ARTERIAL BLOOD GAS PCO2 63 mm/Hg (35-45); ARTERIAL BLOOD GAS PH 7.31 (7.35-7.45); ARTERIAL BLOOD GAS TCO2 33.6 mmol.L (22-28)
--- NOTE | 2017-10-08 08:45 | RAD ---
PROCEDURE: CHEST RADIOGRAPH, 1 VIEW HISTORY: pain COMPARISON: None available. FINDINGS: LUNGS: Prominent skin folds are seen bilaterally which mimic pneumothorax. However lung markings can be seen extending to the chest wall. There is no focal consolidation PLEURA: No pneumothorax or pleural fluid seen. CARDIOVASCULAR: Mild cardiomegaly and moderate aortic tortuosity OSSEOUS STRUCTURES: No significant abnormalities. VISUALIZED UPPER ABDOMEN: Normal. OTHER FINDINGS: None. IMPRESSION: No active disease.
--- NOTE | 2017-10-08 10:00 | CP.PCM.CON ---
<Khadijah Faith - Last Filed: 10/08/17 13:51> History of Present Illness - History of Present Illness History of Present Illness: Please note history as per chart as patient was altered. Contact: daughter Kristyn and Parul 77yo female PMHx HTN, asthma, questionable Parkinson's disease presented to ED with 3 day history of AMS. Patient is accompanied by her , daughter, and son at bedside. As per night resident note, patient's daughter, Kristyn, who was spoken with over the phone. Patient had decreased appetite over the last several days and had not been eating or drinking. During this time, mentation changed and she became more altered. As per daughter Kristyn, patient started becoming forgetful in 2010 and in 2013 became much worse to where she had unstable gait and frequent falls. Patient had questionable stroke in 2006 in [place]. Patient has short term memory problems, but is able to recall jail memories. Patient was at one time on Risperdone, but stopped due to possible extrapyramidal side effects. PMHx: Hypertension, Asthma, ?Parkinson's PSurgHx: No surgical history FamHx: Noncontributory SocHx: No smoking, alcohol, or illicit drug use. Patient requires help with ADLs , unable to ambulate on her own. Patient moved from [place] in early 2016 along with her . Patient normally resides in [place] with daughter Kristyn, but has been visiting family in [place] since 09/14/17. All: NKDA Meds: Unknown Review of Systems - Review of Systems Systems not reviewed;Unavailable: Altered Mental Status Past Patient History - Past Social History Smoking Status: Never Smoked - PSYCHIATRIC Hx Substance Use: No Meds Allergies/Adverse Reactions: Allergies Allergy/AdvReac Type Severity Reaction Status Date / Time Unobtainable Allergy Verified 10/07/17 23:13 - Medications Medications: Current Medications Acetaminophen (Tylenol 325mg Tab) 650 mg PO Q4H PRN PRN Reason: Fever >100.4 F Sodium Chloride (Sodium Chloride 0.45%) 1,000 mls @ 200 mls/hr IV .Q5H [facility] Last Admin: 10/08/17 07:10 Dose: 200 mls/hr Pantoprazole Sodium (Protonix Ec Tab) 40 mg PO 0600 [facility] Last Admin: 10/08/17 07:10 Dose: Not Given Physical Exam - Constitutional Appears: Confused - Head Exam Head Exam: ATRAUMATIC, NORMAL INSPECTION, NORMOCEPHALIC - Eye Exam Eye Exam: Normal appearance. absent: Conjunctival injection, Scleral icterus Pupil Exam: NORMAL ACCOMODATION - ENT Exam ENT Exam: Mucous Membranes Dry Additional comments: BiPAP in place - Respiratory Exam Respiratory Exam: Decreased Breath Sounds, NORMAL BREATHING PATTERN. absent: Accessory Muscle Use, Rales, Rhonchi, Wheezes Additional comments: on BiPAP (18, 5, 40) - Cardiovascular Exam Cardiovascular Exam: +S1, +S2. absent: Bradycardia, Tachycardia - GI/Abdominal Exam GI & Abdominal Exam: Normal Bowel Sounds, Soft. absent: Tenderness - Extremities Exam Extremities exam: Positive for: normal capillary refill, normal inspection, pedal pulses present. Negative for: pedal edema - Neurological Exam Neurological exam: Alert, Altered Additional comments: resting tremor - Skin Skin Exam: Dry, Intact, Normal Color, Warm Results - Vital Signs Recent Vital Signs: Last Vital Signs Temp 99.0 F 10/08/17 08:10 Pulse 69 10/08/17 07:30 Resp 19 10/08/17 07:30 BP 171/85 H 10/08/17 07:30 Pulse Ox 100 10/08/17 07:30 - Labs Result Diagrams: 10/08/17 05:50 10/08/17 13:10 Labs: Laboratory Results - last 24 hr 10/07/17 10/07/17 10/07/17 23:28 23:39 23:39 WBC 8.1 RBC 3.91 Hgb 11.5 L Hct 39.9 MCV 102.0 MCH 29.4 MCHC 28.8 L RDW 14.4 Plt Count 238 MPV 11.3 H Gran % 57.1 Lymph % (Auto) 31.8 [place] % (Auto) 10.9 H Eos % (Auto) 0.0 L Baso % (Auto) 0.2 Gran # 4.63 Lymph # 2.6 [place] # 0.9 H Eos # 0.0 Baso # 0.02 PT 10.7 INR 0.94 APTT 34.5 pCO2 pO2 HCO3 ABG pH ABG Total CO2 ABG O2 Saturation ABG O2 Content ABG Base Excess ABG Hemoglobin ABG Carboxyhemoglobin POC ABG HHb (Measured) ABG Methemoglobin ABG O2 Capacity ABG Potassium Hgb O2 Saturation Glucose Lactate FiO2 Sodium Potassium Chloride Carbon Dioxide Anion Gap BUN Creatinine Est GFR ( Amer) Est GFR (Non-Af Amer) POC Glucose (mg/dL) 180 H Random Glucose Calcium Phosphorus Magnesium Total Bilirubin AST ALT Alkaline Phosphatase Ammonia Lactate Dehydrogenase Total Creatine Kinase Troponin I Total Protein Albumin Globulin Albumin/Globulin Ratio TSH 3rd Generation Arterial Blood Potassium Urine Color Urine Appearance Urine pH Ur Specific [place] Urine Protein Urine Glucose (UA) Urine Ketones Urine Blood Urine Nitrate Urine Bilirubin Urine Urobilinogen Ur Leukocyte Esterase Urine RBC Urine WBC Ur Epithelial Cells Urine Opiates Screen Urine Methadone Screen Acetaminophen Ur Barbiturates Screen Ur Phencyclidine Scrn Ur Amphetamines Screen U Benzodiazepines Scrn U Oth Cocaine Metabols U Cannabinoids Screen Alcohol, Quantitative Influenza Typ A,B (EIA) 10/07/17 10/07/17 10/07/17 23:39 23:39 23:39 WBC RBC Hgb Hct MCV MCH MCHC RDW Plt Count MPV Gran % Lymph % (Auto) [place] % (Auto) Eos % (Auto) Baso % (Auto) Gran # Lymph # [place] # Eos # Baso # PT INR APTT pCO2 pO2 HCO3 ABG pH ABG Total CO2 ABG O2 Saturation ABG O2 Content ABG Base Excess ABG Hemoglobin ABG Carboxyhemoglobin POC ABG HHb (Measured) ABG Methemoglobin ABG O2 Capacity ABG Potassium Hgb O2 Saturation Glucose Lactate FiO2 Sodium 165 H* Potassium 4.6 Chloride 122 H Carbon Dioxide 31 Anion Gap 16 BUN 110 H Creatinine 4.9 H Est GFR ( Amer) 10 Est GFR (Non-Af Amer) 9 POC Glucose (mg/dL) Random Glucose 161 H Calcium 8.8 Phosphorus 4.0 Magnesium 3.0 H Total Bilirubin 0.3 AST 35 ALT 32 Alkaline Phosphatase 77 Ammonia 14 Lactate Dehydrogenase 661 Total Creatine Kinase 83 Troponin I 0.06 Total Protein 7.5 Albumin 3.6 Globulin 3.9 Albumin/Globulin Ratio 0.9 L TSH 3rd Generation Arterial Blood Potassium Urine Color Urine Appearance Urine pH Ur Specific [place] Urine Protein Urine Glucose (UA) Urine Ketones Urine Blood Urine Nitrate Urine Bilirubin Urine Urobilinogen Ur Leukocyte Esterase Urine RBC Urine WBC Ur Epithelial Cells Urine Opiates Screen Urine Methadone Screen Acetaminophen Ur Barbiturates Screen Ur Phencyclidine Scrn Ur Amphetamines Screen U Benzodiazepines Scrn U Oth Cocaine Metabols U Cannabinoids Screen Alcohol, Quantitative < 10 Influenza Typ A,B (EIA) 10/07/17 10/08/17 10/08/17 23:39 00:30 01:04 WBC RBC Hgb Hct MCV MCH MCHC RDW Plt Count MPV Gran % Lymph % (Auto) [place] % (Auto) Eos % (Auto) Baso % (Auto) Gran # Lymph # [place] # Eos # Baso # PT INR APTT pCO2 65 H pO2 416.0 H HCO3 31.3 H ABG pH 7.29 L ABG Total CO2 33.3 H ABG O2 Saturation 100.0 H ABG O2 Content ABG Base Excess 2.8 ABG Hemoglobin ABG Carboxyhemoglobin POC ABG HHb (Measured) ABG Methemoglobin ABG O2 Capacity ABG Potassium 4.5 Hgb O2 Saturation Glucose 174 H Lactate 1.1 FiO2 100.0 Sodium 162.0 H* Potassium Chloride 126.0 H Carbon Dioxide Anion Gap BUN Creatinine Est GFR ( Amer) Est GFR (Non-Af Amer) POC Glucose (mg/dL) Random Glucose Calcium Phosphorus Magnesium Total Bilirubin AST ALT Alkaline Phosphatase Ammonia Lactate Dehydrogenase Total Creatine Kinase Troponin I Total Protein Albumin Globulin Albumin/Globulin Ratio TSH 3rd Generation Arterial Blood Potassium 4.5 Urine Color Urine Appearance Urine pH Ur Specific [place] Urine Protein Urine Glucose (UA) Urine Ketones Urine Blood Urine Nitrate Urine Bilirubin Urine Urobilinogen Ur Leukocyte Esterase Urine RBC Urine WBC Ur Epithelial Cells Urine Opiates Screen Urine Methadone Screen Acetaminophen < 10.0 L Ur Barbiturates Screen Ur Phencyclidine Scrn Ur Amphetamines Screen U Benzodiazepines Scrn U Oth Cocaine Metabols U Cannabinoids Screen Alcohol, Quantitative Influenza Typ A,B (EIA) Negative for flu a/b 10/08/17 10/08/17 10/08/17 03:03 03:03 05:50 WBC RBC Hgb Hct MCV MCH MCHC RDW Plt Count MPV Gran % Lymph % (Auto) [place] % (Auto) Eos % (Auto) Baso % (Auto) Gran # Lymph # [place] # Eos # Baso # PT INR APTT pCO2 pO2 HCO3 ABG pH ABG Total CO2 ABG O2 Saturation ABG O2 Content ABG Base Excess ABG Hemoglobin ABG Carboxyhemoglobin POC ABG HHb (Measured) ABG Methemoglobin ABG O2 Capacity ABG Potassium Hgb O2 Saturation Glucose Lactate FiO2 Sodium 162 H* Potassium 4.7 Chloride 121 H Carbon Dioxide 29 Anion Gap 17 BUN 108 H Creatinine 4.6 H Est GFR ( Amer) 11 Est GFR (Non-Af Amer) 9 POC Glucose (mg/dL) Random Glucose 126 H Calcium 8.7 Phosphorus Magnesium Total Bilirubin AST ALT Alkaline Phosphatase Ammonia Lactate Dehydrogenase Total Creatine Kinase Troponin I Total Protein Albumin Globulin Albumin/Globulin Ratio TSH 3rd Generation Arterial Blood Potassium Urine Color Yellow Urine Appearance Clear Urine pH 6.0 Ur Specific [place] 1.015 Urine Protein 100 H Urine Glucose (UA) Negative Urine Ketones Negative Urine Blood Trace-intact H Urine Nitrate Negative Urine Bilirubin Negative Urine Urobilinogen 0.2 Ur Leukocyte Esterase Negative Urine RBC 0 - 2 Urine WBC 0 - 2 Ur Epithelial Cells 0 - 2 Urine Opiates Screen Negative Urine Methadone Screen Negative Acetaminophen Ur Barbiturates Screen Negative Ur Phencyclidine Scrn Negative Ur Amphetamines Screen Negative U Benzodiazepines Scrn Negative U Oth Cocaine Metabols Negative U Cannabinoids Screen Negative Alcohol, Quantitative Influenza Typ A,B (EIA) 10/08/17 10/08/17 10/08/17 05:50 05:50 07:50 WBC 6.4 D RBC 3.68 Hgb 10.7 L Hct 37.6 MCV 102.2 MCH 29.1 MCHC 28.5 L RDW 14.4 Plt Count 223 MPV 10.8 Gran % Lymph % (Auto) [place] % (Auto) Eos % (Auto) Baso % (Auto) Gran # Lymph # [place] # Eos # Baso # PT INR APTT pCO2 63 H pO2 139.0 H HCO3 31.7 H ABG pH 7.31 L ABG Total CO2 33.6 H ABG O2 Saturation 99.9 H ABG O2 Content 13.7 L ABG Base Excess 4.2 H ABG Hemoglobin 9.9 L ABG Carboxyhemoglobin 1.8 H POC ABG HHb (Measured) 0.1 ABG Methemoglobin 1.4 ABG O2 Capacity 13.7 L ABG Potassium Hgb O2 Saturation 96.6 Glucose Lactate FiO2 40.0 Sodium Potassium Chloride Carbon Dioxide Anion Gap BUN Creatinine Est GFR ( Amer) Est GFR (Non-Af Amer) POC Glucose (mg/dL) Random Glucose Calcium Phosphorus Magnesium Total Bilirubin AST ALT Alkaline Phosphatase Ammonia Lactate Dehydrogenase Total Creatine Kinase Troponin I Total Protein Albumin Globulin Albumin/Globulin Ratio TSH 3rd Generation 0.94 Arterial Blood Potassium Urine Color Urine Appearance Urine pH Ur Specific [place] Urine Protein Urine Glucose (UA) Urine Ketones Urine Blood Urine Nitrate Urine Bilirubin Urine Urobilinogen Ur Leukocyte Esterase Urine RBC Urine WBC Ur Epithelial Cells Urine Opiates Screen Urine Methadone Screen Acetaminophen Ur Barbiturates Screen Ur Phencyclidine Scrn Ur Amphetamines Screen U Benzodiazepines Scrn U Oth Cocaine Metabols U Cannabinoids Screen Alcohol, Quantitative Influenza Typ A,B (EIA) Assessment & Plan - Assessment and Plan (Free Text) Assessment: 77yo female PMHx HTN, asthma, questionable Parkinson's disease presented to ED with 3 day history of AMS Plan: Neuro: -awake but altered -baseline patient is unable to complete ADLs and unable to ambulate by her self -likely secondary to hypernatremia -CT head: 3mm round hyperdensity in the left temporal lobe inferiously and cannot exclude a tiny acute intraparenchymal bleed -1/2NS @ 100cc/hr -f/u TSH, RPR, Vit B12, folate -f/u MRI brain -f/u MRA head and neck -head of bed > 45 -Dr. Matias on board Cardio: -hemodynamically stable -keep MAP > 65 Pulm: -hypercapnic respiratory acidosis -patient has hx of asthma -on BiPAP -monitor ABGs -Duoneb 3ml inh q4 -Solumedrol 40mg ivp q8 -Rocephin 1gm ivpb qd (start 10/08) -Zithromax 500mg ivpb qd (start 10/08) GI: -no acute issues -NPO Renal/Electrolytes: -hypernatremia 165 on admission --> 162 --> 154 -goal Na < 150 in a day and a half -AVERY -monitor creatinin.9 on admission --> 4.6 --> 4.2 -Monitor Is and os -Basurto in place -Dr. Pinzon consulted Endo: -no acute issues -maintain euglycemia Heme: -no acute issues ID: -f/u blood and urine culture -f/u procalcitonin -Influenza negative -Rocephin 1gm ivpb qd (start 10/08) -Zithromax 500mg ivpb qd (start 10/08) GI ppx: Protonix 40mg ivp qd DVT ppx: Heparin 5000u sc q8 Diet: NPO Discussed with Dr. Michelle Faith PGY2 <Maksim Martinez - Last Filed: 10/08/17 18:08> Meds - Medications Medications: Current Medications Acetaminophen (Tylenol 325mg Tab) 650 mg PO Q4H PRN PRN Reason: Fever >100.4 F Albuterol/Ipratropium (Duoneb 3 Mg/0.5 Mg (3 Ml) Ud) 3 ml IH Q4H [facility] Last Admin: 10/08/17 13:12 Dose: 3 ml Heparin Sodium (Porcine) (Heparin) 5,000 units SC Q8 [facility] PRN Reason: Protocol Last Admin: 10/08/17 13:36 Dose: 5,000 units Hydralazine HCl (Apresoline) 10 mg IVP Q8H PRN PRN Reason: Systolic Blood Pressure Ceftriaxone Sodium (Rocephin 1 Gram Ivpb) 1 gm in 100 mls @ 100 mls/hr IVPB DAILY [facility] PRN Reason: Protocol Last Admin: 10/08/17 13:37 Dose: 100 mls/hr Azithromycin (Zithromax 500mg In Ns) 500 mg in 250 mls @ 167 mls/hr IVPB DAILY [facility] PRN Reason: Protocol Last Admin: 10/08/17 14:55 Dose: 167 mls/hr Propofol (Diprivan) 1,000 mg in 100 mls @ 1.837 mls/hr IV .Q24H PRN; Protocol; 5 MCG/KG/MIN PRN Reason: TITRATE PER MD ORDER Last Admin: 10/08/17 16:37 Dose: 5 mcg/kg/min, 1.837 mls/hr Lactated Ringer's (Lactated Ringer's) 1,000 mls @ 150 mls/hr IV .Q6H40M [facility] Last Admin: 10/08/17 16:56 Dose: 150 mls/hr Methylprednisolone (Solu-Medrol) 40 mg IVP Q8H [facility] Last Admin: 10/08/17 13:36 Dose: 40 mg Pantoprazole Sodium (Protonix Inj) 40 mg IVP DAILY [facility] Results - Vital Signs Recent Vital Signs: Last Vital Signs Temp 97.9 F 10/08/17 13:17 Pulse 63 10/08/17 16:40 Resp 20 10/08/17 16:08 BP 92/59 L 10/08/17 16:30 Pulse Ox 70 L 10/08/17 16:40 - Labs Result Diagrams: 10/08/17 05:50 10/08/17 13:10 Labs: Laboratory Results - last 24 hr 10/08/17 10/08/17 10/08/17 12:25 13:10 13:10 pCO2 61 H pO2 147.0 H HCO3 28.7 H ABG pH 7.28 L ABG Total CO2 30.6 H ABG O2 Saturation 99.6 H ABG O2 Content ABG Base Excess 0.5 ABG Hemoglobin ABG Carboxyhemoglobin POC ABG HHb (Measured) ABG Methemoglobin ABG O2 Capacity ABG Potassium 4.1 Hgb O2 Saturation Sodium 155.0 H 154 H Chloride 123.0 H 115 H Glucose 100 Lactate 0.6 L FiO2 40.0 Inspiratory BiPAP 10 Potassium 4.8 Carbon Dioxide 31 Anion Gap 13 BUN 101 H Creatinine 4.2 H Est GFR ( Amer) 12 Est GFR (Non-Af Amer) 10 Random Glucose 99 Uric Acid 10.2 H Calcium 8.5 Arterial Blood Potassium 4.1 10/08/17 14:55 pCO2 65 H pO2 93.0 HCO3 28.5 H ABG pH 7.25 L ABG Total CO2 30.5 H ABG O2 Saturation 98.6 H ABG O2 Content 13.3 L ABG Base Excess 0.4 ABG Hemoglobin 9.8 L ABG Carboxyhemoglobin 1.9 H POC ABG HHb (Measured) 1.4 ABG Methemoglobin 1.2 ABG O2 Capacity 13.5 L ABG Potassium Hgb O2 Saturation 95.5 Sodium Chloride Glucose Lactate FiO2 40.0 Inspiratory BiPAP Potassium Carbon Dioxide Anion Gap BUN Creatinine Est GFR ( Amer) Est GFR (Non-Af Amer) Random Glucose Uric Acid Calcium Arterial Blood Potassium Attending/Attestation - Attestation I have personally seen and examined this patient.: Yes I have fully participated in the care of the patient.: Yes I have reviewed all pertinent clinical information: Yes Notes (Text): 10/08/17 18:04 77 yo with COPD (emphysema on CT and obstructive airway disease based on outside pulmonary records) exacerbation, complicated by HCRF-->failed BPAP and required intubation. bronchodilators, steroid taper, abx. Vent: avoid overventilation-->I:E>2.5, f/u abg. dvt/gi prophyalxis, protective lung vent strategy. AVERY-->cont with LR drip, correct lites, serial BMP ccm time 40 min
--- NOTE | 2017-10-08 11:44 | CARD ---
APPROVED REPORT EKG Measurement Heart [id number] <Conclusion> Poor ECG tracing Uncertain rhythm: possible sinus LAD Suggest repeat ECG
[2017-10-08 12:33] LABS: ARTERIAL BLOOD GAS HCO3 28.7 mmol/L (21-28); ARTERIAL BLOOD GAS O2 SAT 99.6 % (95-98); ARTERIAL BLOOD GAS PCO2 61 mm/Hg (35-45); ARTERIAL BLOOD GAS PH 7.28 (7.35-7.45); ARTERIAL BLOOD GAS TCO2 30.6 mmol.L (22-28)
[2017-10-08] MEDS ORDERED: Sodium Chloride 0.45% 1,000 ML IV SCH (13:00)
[2017-10-08] MEDS: Albuterol-Ipratrop 3 mg / 0.5 (3 ml) UD IH SCH ×2 (13:12→20:23)
[2017-10-08 13:33] VITALS: BMI 23.1
[2017-10-08] MEDS ORDERED: Influenza Vaccine 60 mcg/0.5 mL SYR (4YR UP) IM ONE (13:33)
[2017-10-08] MEDS ORDERED: Pneumococcal 23-Valent Vaccine IM ONE (13:33)
[2017-10-08] MEDS: MethylPREDNISolone 40 mg Vial IVP SCH ×2 (13:36→21:53)
[2017-10-08] MEDS: cefTRIAXone 1 gm 1 GM/100 ML BAG IVPB SCH (13:37)
[2017-10-08 13:39] LABS: CALCIUM 8.5 mg/dL (8.4-10.5)
[2017-10-08 13:42] LABS: FOLATE > 20.0 ng/mL
[2017-10-08] MEDS: Azithromycin 500MG/NS 250ml 500 MG/250 ML BAG IVPB SCH (14:55)
[2017-10-08 15:01] LABS: ARTERIAL BLOOD GAS HCO3 28.5 mmol/L (21-28); ARTERIAL BLOOD GAS HEMOGLOBIN 9.8 g/dL (11.7-17.4); ARTERIAL BLOOD GAS O2 CAPACITY 13.5 mL/dl (16-24); ARTERIAL BLOOD GAS O2 CONTENT 13.3 ML/dl (15-23); ARTERIAL BLOOD GAS O2 SAT 98.6 % (95-98); ARTERIAL BLOOD GAS PCO2 65 mm/Hg (35-45); ARTERIAL BLOOD GAS PH 7.25 (7.35-7.45); ARTERIAL BLOOD GAS TCO2 30.5 mmol.L (22-28)
--- NOTE | 2017-10-08 16:00 | CP.PCM.CON ---
History of Present Illness - History of Present Illness History of Present Illness: Initial Nephrology Consultation: Assessment: critical Acute Kidney Injury (N17.9) likely dehydration, pre--renal state and ATN Hypernatremia HTN, possible pneumonia, COPD Anemia hypercapnic respi failure Plan No acute need for renal replacement therapy at this time. Hypertension control with meds as ordered. Patient not on ACEI/ARB due to AVERY Monitor Input/Output, daily weights and renal function with basic metabolic panel IVF as NS @ 60 ml/hr till Mid night then switch back to 0.45% saline at 100 ml/ hr. will try to maintain serum Na close to 154 till MN to avoid rapid correction monitor serum Na q 6 hrs. check urine studies and renal sonogram. Dose meds/antibiotics for reduced GFR. Avoid fleets enema/magnesium based laxatives. Avoid nephrotoxins/NSAIDs/ iodinated contrast (unless needed emergently) Glycemic control Further work up/management as per primary team Thanks for allowing me to participate in care of your patient. Will follow patient with you. Please call if any Qs. d/w team Dr Hammad Feldman Office: [phone] Chief Complaint; Unable Source of Info: medical chart review HPI: Pt is a 77 y/o F with hx of hypertension, asthma, parkinson disease came with AMS, decreased oral intake, CO2 retention AVERY and hypernatremia hence renal consulted. pt unable to provide any hx No known recent iodinated contrast exposure. No obvious episodes of low BP. ROS: unable Physical Examination: General Appearance: elderly appearing female, confused Vitals reviewed and noted as below Head; Atraumatic, normocephalic ENT: no ulcers no thrush. Tongue is midline and very dry. Oropharynx: no rash or ulcers. EYES: Pupils are equal, round and reactive to light accommodation. Eye muscles and extraocular movement intact. Sclera is anicteric. Neck; supple no lymphadenopathy, no thyromegaly or bruit Lungs: increased respiratory rate/effort. Breath sounds bilateral decreased at bases Heart: Normal rate. s1s2 normal. No rub or gallop. Extremities: no edema. No varicose veins Neurological: Patient is confused Skin: Warm and dry. Normal turgor. No rash. Palpitation: Normal elasticity for age Abdomen: Abdomen is soft. Bowel sounds +. There is no abdominal tenderness, no guarding/rigidity no organomegaly. has myoclonus jerks Psych:lack insight and rest unable MSK: no joint tenderness or swelling. Digits and nails normal, no deformity : kidney or bladder not palpable Labs/imaging/EKG reviewed. Past medical history, past surgical history, family history, social history, allergy reviewed and noted as below family hx: unable to obtain Past Patient History - Past Social History Smoking Status: Never Smoked - CARDIAC Hx Hypertension: Yes - PULMONARY Hx Asthma: Yes - NEUROLOGICAL HX Cerebrovascular Accident: (questionable cva in [place] 2006) Hx Parkinson's Disease: Yes (questionable) Other/Comment: uncontrollable twitching, jittery,short term memory loss, forgetful since 2010 worsening 2013, difficulty walking - HEENT Hx Cataracts: Yes (left eye) - INTEGUMENTARY Other/Comment: dry skin ble - MUSCULOSKELETAL/RHEUMATOLOGICAL Hx Falls: Yes (recent frequent) - PSYCHIATRIC Hx Substance Use: No - SURGICAL HISTORY Hx Surgeries: (unknown) Meds Allergies/Adverse Reactions: Allergies Allergy/AdvReac Type Severity Reaction Status Date / Time Unobtainable Allergy Verified 10/07/17 23:13 - Medications Medications: Current Medications Acetaminophen (Tylenol 325mg Tab) 650 mg PO Q4H PRN PRN Reason: Fever >100.4 F Albuterol/Ipratropium (Duoneb 3 Mg/0.5 Mg (3 Ml) Ud) 3 ml IH Q4H [facility] Last Admin: 10/08/17 13:12 Dose: 3 ml Heparin Sodium (Porcine) (Heparin) 5,000 units SC Q8 [facility] PRN Reason: Protocol Last Admin: 10/08/17 13:36 Dose: 5,000 units Hydralazine HCl (Apresoline) 10 mg IVP Q8H PRN PRN Reason: Systolic Blood Pressure Ceftriaxone Sodium (Rocephin 1 Gram Ivpb) 1 gm in 100 mls @ 100 mls/hr IVPB DAILY [facility] PRN Reason: Protocol Last Admin: 10/08/17 13:37 Dose: 100 mls/hr Azithromycin (Zithromax 500mg In Ns) 500 mg in 250 mls @ 167 mls/hr IVPB DAILY [facility] PRN Reason: Protocol Last Admin: 10/08/17 14:55 Dose: 167 mls/hr Sodium Chloride (Sodium Chloride 0.9%) 1,000 mls @ 60 mls/hr IV .[id number] [facility] Last Admin: 10/08/17 15:31 Dose: 60 mls/hr Sodium Chloride (Sodium Chloride 0.45%) 1,000 mls @ 100 mls/hr IV .Q10H [facility] Methylprednisolone (Solu-Medrol) 40 mg IVP Q8H [facility] Last Admin: 10/08/17 13:36 Dose: 40 mg Pantoprazole Sodium (Protonix Inj) 40 mg IVP DAILY [facility] Results - Vital Signs Recent Vital Signs: Last Vital Signs Temp 97.9 F 10/08/17 13:17 Pulse 63 10/08/17 13:50 Resp 15 10/08/17 13:50 BP 138/89 10/08/17 13:26 Pulse Ox 100 10/08/17 13:50 - Labs Result Diagrams: 10/08/17 05:50 10/08/17 13:10 Labs: Laboratory Results - last 24 hr 10/08/17 10/08/17 10/08/17 12:25 13:10 14:55 pCO2 61 H 65 H pO2 147.0 H 93.0 HCO3 28.7 H 28.5 H ABG pH 7.28 L 7.25 L ABG Total CO2 30.6 H 30.5 H ABG O2 Saturation 99.6 H 98.6 H ABG O2 Content 13.3 L ABG Base Excess 0.5 0.4 ABG Hemoglobin 9.8 L ABG Carboxyhemoglobin 1.9 H POC ABG HHb (Measured) 1.4 ABG Methemoglobin 1.2 ABG O2 Capacity 13.5 L ABG Potassium 4.1 Hgb O2 Saturation 95.5 Sodium 155.0 H 154 H Chloride 123.0 H 115 H Glucose 100 Lactate 0.6 L FiO2 40.0 40.0 Inspiratory BiPAP 10 Potassium 4.8 Carbon Dioxide 31 Anion Gap 13 BUN 101 H Creatinine 4.2 H Est GFR ( Amer) 12 Est GFR (Non-Af Amer) 10 Random Glucose 99 Calcium 8.5 Arterial Blood Potassium 4.1
--- NOTE | 2017-10-08 16:36 | CP.PCM.CON ---
History of Present Illness - History of Present Illness History of Present Illness: Mrs. Sylvester is a 77-year-old woman with a past medical history of hypertension , asthma, and questionable Parkinson's disease who presented to the ED for a 3 day history of worsening mental status. Family is not at bedside, but according to the report provided by the adam's daughter, the patient developed dementia and movement difficulty in 2010. She had been placed on Risperdone, but had EPS, and this was stopped. Currently, the patient is in the ICU for respiratory acidosis and is requiring a BiPAP for support. She complied with the exam, and answered questions briefly, but she was encephalopathic. Review of Systems - Review of Systems Systems not reviewed;Unavailable: Altered Mental Status Past Patient History - Past Social History Smoking Status: Never Smoked - CARDIAC Hx Hypertension: Yes - PULMONARY Hx Asthma: Yes - NEUROLOGICAL HX Cerebrovascular Accident: (questionable cva in [place] 2006) Hx Parkinson's Disease: Yes (questionable) Other/Comment: uncontrollable twitching, jittery,short term memory loss, forgetful since 2010 worsening 2013, difficulty walking - HEENT Hx Cataracts: Yes (left eye) - INTEGUMENTARY Other/Comment: dry skin ble - MUSCULOSKELETAL/RHEUMATOLOGICAL Hx Falls: Yes (recent frequent) - PSYCHIATRIC Hx Substance Use: No - SURGICAL HISTORY Hx Surgeries: (unknown) Meds Allergies/Adverse Reactions: Allergies Allergy/AdvReac Type Severity Reaction Status Date / Time Unobtainable Allergy Verified 10/07/17 23:13 - Medications Medications: Current Medications Acetaminophen (Tylenol 325mg Tab) 650 mg PO Q4H PRN PRN Reason: Fever >100.4 F Albuterol/Ipratropium (Duoneb 3 Mg/0.5 Mg (3 Ml) Ud) 3 ml IH Q4H DAVID Last Admin: 10/08/17 13:12 Dose: 3 ml Heparin Sodium (Porcine) (Heparin) 5,000 units SC Q8 DAVID PRN Reason: Protocol Last Admin: 10/08/17 13:36 Dose: 5,000 units Hydralazine HCl (Apresoline) 10 mg IVP Q8H PRN PRN Reason: Systolic Blood Pressure Ceftriaxone Sodium (Rocephin 1 Gram Ivpb) 1 gm in 100 mls @ 100 mls/hr IVPB DAILY DAVID PRN Reason: Protocol Last Admin: 10/08/17 13:37 Dose: 100 mls/hr Azithromycin (Zithromax 500mg In Ns) 500 mg in 250 mls @ 167 mls/hr IVPB DAILY DAVID PRN Reason: Protocol Last Admin: 10/08/17 14:55 Dose: 167 mls/hr Sodium Chloride (Sodium Chloride 0.9%) 1,000 mls @ 60 mls/hr IV .[id number] DAVID Last Admin: 10/08/17 15:31 Dose: 60 mls/hr Sodium Chloride (Sodium Chloride 0.45%) 1,000 mls @ 100 mls/hr IV .Q10H DAVID Propofol (Diprivan) 1,000 mg in 100 mls @ 1.837 mls/hr IV .Q24H PRN; Protocol; 5 MCG/KG/MIN PRN Reason: TITRATE PER MD ORDER Methylprednisolone (Solu-Medrol) 40 mg IVP Q8H [facility] Last Admin: 10/08/17 13:36 Dose: 40 mg Pantoprazole Sodium (Protonix Inj) 40 mg IVP DAILY [facility] Physical Exam - Constitutional Appears: Well - Head Exam Head Exam: ATRAUMATIC, NORMAL INSPECTION, NORMOCEPHALIC - Eye Exam Eye Exam: EOMI, Normal appearance, PERRL - ENT Exam ENT Exam: Mucous Membranes Moist, Normal Exam - Neck Exam Neck exam: Positive for: Normal Inspection - Respiratory Exam Respiratory Exam: Accessory Muscle Use - Cardiovascular Exam Cardiovascular Exam: REGULAR RHYTHM, +S1, +S2 - GI/Abdominal Exam GI & Abdominal Exam: Normal Bowel Sounds, Soft. absent: Tenderness - Rectal Exam Rectal Exam: Deferred - Neurological Exam Neurological exam: Abnormal Gait, Altered, CN II-XII Intact, Reflexes Normal Additional comments: Moves all extremities, but has generalized weakness. No focal weakness noted. Sensation is intact throughout. Was able to follow simple commands, but could not assess speech due to BiPAP and acute respiratory issues. Results - Vital Signs Recent Vital Signs: Last Vital Signs Temp 97.9 F 10/08/17 13:17 Pulse 63 10/08/17 13:50 Resp 15 10/08/17 13:50 BP 138/89 10/08/17 13:26 Pulse Ox 100 10/08/17 13:50 - Labs Result Diagrams: 10/08/17 05:50 10/08/17 13:10 Labs: Laboratory Results - last 24 hr 10/08/17 10/08/17 10/08/17 12:25 13:10 14:55 pCO2 61 H 65 H pO2 147.0 H 93.0 HCO3 28.7 H 28.5 H ABG pH 7.28 L 7.25 L ABG Total CO2 30.6 H 30.5 H ABG O2 Saturation 99.6 H 98.6 H ABG O2 Content 13.3 L ABG Base Excess 0.5 0.4 ABG Hemoglobin 9.8 L ABG Carboxyhemoglobin 1.9 H POC ABG HHb (Measured) 1.4 ABG Methemoglobin 1.2 ABG O2 Capacity 13.5 L ABG Potassium 4.1 Hgb O2 Saturation 95.5 Sodium 155.0 H 154 H Chloride 123.0 H 115 H Glucose 100 Lactate 0.6 L FiO2 40.0 40.0 Inspiratory BiPAP 10 Potassium 4.8 Carbon Dioxide 31 Anion Gap 13 BUN 101 H Creatinine 4.2 H Est GFR ( Amer) 12 Est GFR (Non-Af Amer) 10 Random Glucose 99 Calcium 8.5 Arterial Blood Potassium 4.1 - Imaging and Cardiology CT scan - head Status: Image reviewed by me, Report reviewed by me (2-3 mm hyperdensity in left temporal lobe, likely a calcification. ) Assessment & Plan (1) Toxic metabolic encephalopathy Assessment and Plan: Likely due to respiratory acidosis. Treat the underlying cause and follow up with neurology once medical problems are stabilized. Status: Acute Priority: High (2) Abnormal CT scan, head Assessment and Plan: This is highly unlikely to be a bleed and repeat CT scan shows that it is stable. May repeat another scan in 24 hours, or obtain MRI of the brain without contrast for further evaluation. Continue BP control per ICU protocol. Thank you. Status: Acute Priority: High
[2017-10-08] MEDS: Propofol 10 mg/ml 1,000 MG/100 ML VIAL IV PRN (16:37)
[2017-10-08] MEDS ORDERED: Lactated Ringer's 1,000 ML IV SCH ×2 (16:45→20:17)
--- NOTE | 2017-10-08 16:56 | RAD ---
HISTORY: s/p intubation COMPARISON: No prior. FINDINGS: LUNGS: The endotracheal and nasogastric tubes are in satisfactory position. The lungs are clear PLEURA: No significant pleural effusion identified, no pneumothorax apparent. CARDIOVASCULAR: Normal. OSSEOUS STRUCTURES: No significant abnormalities. VISUALIZED UPPER ABDOMEN: Normal. OTHER FINDINGS: None. IMPRESSION: The endotracheal and nasogastric tubes are in satisfactory position. The lungs are clear
[2017-10-08 17:15] LABS: URIC ACID 10.2 mg/dL (2.5-6.2)
[2017-10-08 18:12] LABS: ARTERIAL BLOOD GAS HCO3 23.9 mmol/L (21-28); ARTERIAL BLOOD GAS HEMOGLOBIN 9.4 g/dL (11.7-17.4); ARTERIAL BLOOD GAS O2 CAPACITY 13.6 mL/dl (16-24); ARTERIAL BLOOD GAS O2 CONTENT 13.6 ML/dl (15-23); ARTERIAL BLOOD GAS O2 SAT 99.8 % (95-98); ARTERIAL BLOOD GAS PCO2 30 mm/Hg (35-45); ARTERIAL BLOOD GAS PH 7.51 (7.35-7.45); ARTERIAL BLOOD GAS TCO2 24.8 mmol.L (22-28)
[2017-10-08 19:54] LABS: CALCIUM 8.3 mg/dL (8.4-10.5)
--- NOTE | 2017-10-08 20:52 | US ---
EXAM: US Retroperitoneal Limited, Renal CLINICAL HISTORY: 77 years old, female; Abnormal findings; Abnormal lab test; Abnormal kidney function lab tests; Additional info: [facility] TECHNIQUE: Real-time ultrasound of the retroperitoneum (limited) with image documentation. COMPARISON: No relevant prior studies available. FINDINGS: Right kidney: Increased in echogenicity. 1.7 cm cyst. 1.9 cm cyst. No calculi. No hydronephrosis. Left kidney: Increased in echogenicity. 2.2 cm cyst. No calculi. No hydronephrosis. IMPRESSION: 1. Echogenic kidneys suggesting medical renal disease. 2. Incidental/non-acute findings are described above.
[2017-10-08 23:52] LABS: ARTERIAL BLOOD GAS HCO3 25.3 mmol/L (21-28); ARTERIAL BLOOD GAS HEMOGLOBIN 10.3 g/dL (11.7-17.4); ARTERIAL BLOOD GAS O2 CAPACITY 14.4 mL/dl (16-24); ARTERIAL BLOOD GAS O2 CONTENT 14.3 ML/dl (15-23); ARTERIAL BLOOD GAS O2 SAT 99.3 % (95-98); ARTERIAL BLOOD GAS PCO2 48 mm/Hg (35-45); ARTERIAL BLOOD GAS PH 7.33 (7.35-7.45); ARTERIAL BLOOD GAS TCO2 26.8 mmol.L (22-28)
[2017-10-09] MEDS: Albuterol-Ipratrop 3 mg / 0.5 (3 ml) UD IH SCH ×5 (02:59→19:40)
--- NOTE | 2017-10-09 04:01 | CON ---
DATE: 10/08/2017 HISTORY OF PRESENT ILLNESS: The patient is seen and examined at bedside. This is a 77-year-old lady with history of Parkinson disease and asthma who was brought into [facility] for several days of fatigue, malaise, and failure to thrive, couple of days later shortness of breath joined. She also reported to have some wheezes. No fever, no chills, no sweats. No nausea, no vomiting, no diarrhea, no constipation. She also had a history of falls. PAST MEDICAL HISTORY: Hypertension, asthma, and Parkinson's disease? PAST SURGICAL HISTORY: No surgical history. FAMILY HISTORY: Noncontributory. SOCIAL HISTORY: No alcohol, no illicit drug abuse. No tobacco smoking. The patient does require help with ADLs. ALLERGIES: NKDA. MEDICATIONS AT HOME: Unknown. The patient is from [place]. REVIEW OF SYSTEMS: Review of 12-organ system other than mentioned in history of present illness is negative. PHYSICAL EXAMINATION: VITAL SIGNS: The patient was recently intubated, blood pressure 126/67, heart rate 100, and oxygen saturations 100% on 100% FiO2. The patient is on PRVC 380/14/5/100% (was tapered down to 60%). ENT: Head and neck atraumatic. LUNGS: Few wheezes and crackles bilaterally. Rhonchi bilaterally. HEART: Irregular rate and rhythm. S1 and S2 distant. ABDOMEN: Soft, nontender, and nondistended. MUSCULOSKELETAL: No C/C/E. NEUROLOGIC: The patient moves all extremities spontaneously. SKIN: Moist. PSYCHIATRIC: The patient respond to commands. However, she is somnolent and has altered mental status. LABORATORY DATA: WBC 6.4, hemoglobin 10.7, and platelet count 223. Sodium 154 down from 162, potassium 4.8, chloride 115, carbon dioxide 31, BUN 101 down from 108, creatinine 4.2 down from 4.6, and glucose 99. INR 0.94. ABG right before intubation 7.25/65/93 on 40% FiO2 and BiPAP. Of note, the patient's pH was gradually going down starting from 7.31 at 7:50 a.m., then 7.18 at 12:25 p.m., and then right before intubation 7.25 at 2:55 p.m. CURRENT MEDICATIONS: Normal saline 100 mL/hour, Tylenol p.r.n., DuoNeb every 4 hours, heparin 5000 subcu q. 8 hours, hydralazine p.r.n., Solu-Medrol 40 mg IV q. 8 hours, Protonix, ceftriaxone, and azithromycin. Chest x-ray showed no active pulmonary disease. ET tube about 2 cm above [address]a. Head CT showed 3-mm round hyper-density in the left temporal lobe inferiorly, cannot exclude a tiny acute intraparenchymal bleed. Of note, I discussed the imaging with Dr. Matias of neurology who does not think it clearly represent bleeding. ASSESSMENT: This is a 77-year-old lady who presented to ICU with hypercapnic respiratory failure, most likely due to combination of factors including obstructive lung disease, neuromuscular deficiency (the patient has questionable Parkinson disease or other type of neurodegenerative disorder), cannot rule out vitamin D deficiency. At present time, we will proceed with bronchodilators (DuoNeb every 4 hours), steroid taper, antibiotics. Septic workup was ordered, procalcitonin, blood culture, urine culture, and sputum culture. We will make sure that the patient is not over-ventilated to avoid barotrauma or hemodynamic collapse. Of note, chest x-ray after intubation did not reveal any pneumothorax. We will make sure that I to E is more than 1 to 2.5. We will repeat ABG in 1 hour. The patient received 1 liter of normal saline during intubation. We will continue with DVT and GI prophylaxis, protective lung ventilation strategy including 6 to 8 mL per predicted body weight and plateau pressure less than 30. The patient will be intubated with propofol for hopefully short-term sedation and weaning attempted tomorrow once her hypercapnic respiratory failure resolves. We will continue with daily sedation vacation. We will continue with head of bed elevated to >35 degrees. The patient does have acute kidney injury, most likely secondary to dehydration. At present time, we will continue with fluid resuscitation and we will follow her creatinine and urine output. Basurto catheter placed in and we will monitor urine output with a goal to have more than 0.5 mL/kg/hour of urine output. Most likely, acute kidney injury represents acute tubular necrosis in the setting of hypovolemia plus/minus sepsis. We will correct electrolytes and at present time, the patient is on half normal saline at 100 mL/hour. Her sodium trending down. I will switch her to lactated Ringer as the patient does not have lactic acidosis and does not have hyperkalemia and LR will also have some nephro-protective effect. We will maintain blood glucose within 140 to 180 range according to NICE-SUGAR trial. We will continue with steroid taper. We will continue to maintain mean arterial pressure more than 70, euvolemia, and euglycemia. Cardiovascular bey, the patient is stable. We will order echocardiogram to rule out CHF as a contributing factor to her respiratory failure. ccm time 40 min Maksim Martinez MD MTDRyan
[2017-10-09 04:07] LABS: CALCIUM 8.4 mg/dL (8.4-10.5)
[2017-10-09] MEDS ORDERED: Insulin Regular 1 UNITS/0.01 ML ML IVP ONE (05:11)
[2017-10-09] MEDS ORDERED: Dextrose 50% SYRINGE Inj (50 ml) IVP ONE (05:12)
[2017-10-09] MEDS ORDERED: Lactated Ringer's 1,000 ML IV SCH (05:16)
[2017-10-09] MEDS: MethylPREDNISolone 40 mg Vial IVP SCH ×3 (05:31→21:00)
[2017-10-09 06:07] LABS: ARTERIAL BLOOD GAS HCO3 22.5 mmol/L (21-28); ARTERIAL BLOOD GAS HEMOGLOBIN 10.5 g/dL (11.7-17.4); ARTERIAL BLOOD GAS O2 CAPACITY 14.8 mL/dl (16-24); ARTERIAL BLOOD GAS O2 CONTENT 14.7 ML/dl (15-23); ARTERIAL BLOOD GAS O2 SAT 99.5 % (95-98); ARTERIAL BLOOD GAS PCO2 39 mm/Hg (35-45); ARTERIAL BLOOD GAS PH 7.37 (7.35-7.45); ARTERIAL BLOOD GAS TCO2 23.7 mmol.L (22-28)
--- NOTE | 2017-10-09 06:29 | CP.PCM.PN ---
Subjective - Date & Time of Evaluation Date of Evaluation: 10/09/17 Time of Evaluation: 06:26 - Subjective Subjective: Ms. Sylvester was seen and examined at the bedside in the ICU. She is responsive to tactile stimuli, on mechanical ventilator with GCS-4 T. At present, she is receiving propofol at 39.12 mcg/kg/min as sedation. She becomes restless with any tactile stimuli, with bilateral wrist restraint for patient safety. She also has the bilateral lower extremities SCD's. Her K level is 6- calcium gluconate, dextrose and regular insulin was given to the patient.There was no untoward events overnight. Objective - Vital Signs/Intake and Output Vital Signs (last 24 hours): Temp Pulse Resp BP Pulse Ox 97.7 F 61 13 101/63 100 10/09/17 04:00 10/09/17 06:00 10/09/17 06:00 10/09/17 06:00 10/09/17 06:00 Intake and Output: 10/08/17 10/09/17 18:59 06:59 Intake Total 1820 1460 Output Total 275 350 Balance 1545 1110 - Medications Medications: Current Medications Acetaminophen (Tylenol 325mg Tab) 650 mg PO Q4H PRN PRN Reason: Fever >100.4 F Albuterol/Ipratropium (Duoneb 3 Mg/0.5 Mg (3 Ml) Ud) 3 ml IH [id number] DAVID Last Admin: 10/09/17 02:59 Dose: 3 ml Heparin Sodium (Porcine) (Heparin) 5,000 units SC Q8 DAVID PRN Reason: Protocol Last Admin: 10/09/17 05:31 Dose: 5,000 units Hydralazine HCl (Apresoline) 10 mg IVP Q8H PRN PRN Reason: Systolic Blood Pressure Last Admin: 10/09/17 02:12 Dose: 10 mg Ceftriaxone Sodium (Rocephin 1 Gram Ivpb) 1 gm in 100 mls @ 100 mls/hr IVPB DAILY DAVID PRN Reason: Protocol Last Admin: 10/08/17 13:37 Dose: 100 mls/hr Azithromycin (Zithromax 500mg In Ns) 500 mg in 250 mls @ 167 mls/hr IVPB DAILY DAVID PRN Reason: Protocol Last Admin: 10/08/17 14:55 Dose: 167 mls/hr Propofol (Diprivan) 1,000 mg in 100 mls @ 1.837 mls/hr IV .Q24H PRN; Protocol; 5 MCG/KG/MIN PRN Reason: TITRATE PER MD ORDER Last Admin: 10/08/17 16:37 Dose: 5 mcg/kg/min, 1.837 mls/hr Lactated Ringer's (Lactated Ringer's) 1,000 mls @ 125 mls/hr IV .Q8H [facility] Last Admin: 10/09/17 05:50 Dose: 125 mls/hr Methylprednisolone (Solu-Medrol) 40 mg IVP Q8H DAVID Last Admin: 10/09/17 05:31 Dose: 40 mg Pantoprazole Sodium (Protonix Inj) 40 mg IVP DAILY [facility] - Labs Labs: 10/09/17 03:05 PT 10.7 SECONDS (9.4-12.5) 10/07/17 23:39 INR 0.94 (0.93-1.08) 10/07/17 23:39 APTT 34.5 Seconds (25.1-36.5) 10/07/17 23:39 - Constitutional Appears: No Acute Distress - Head Exam Head Exam: NORMAL INSPECTION - Eye Exam Pupil Exam: PERRL - Neurological Exam Neurological Exam: Awake Neuro motor strength exam: Left Upper Extremity: 4, Right Upper Extremity: 4, Left Lower Extremity: 3, Right Lower Extremity: 3 Additional comments: GCS -4T. Assessment and Plan (1) Abnormal CT scan, head Assessment & Plan: Case discussed with Dr. Matias, continue all current medical regimen. Recommend MRI of the brain without contrast to evaluate the abnormal findings in the CT head. Status: Acute (2) Toxic metabolic encephalopathy Assessment & Plan: Case discussed with Dr. Matias, continue all current medical regimen. Treat any underlying abnormality in the ABG and electrolytes. Status: Acute
--- NOTE | 2017-10-09 08:26 | PROCN ---
DATE: 10/08/2017 PROCEDURE NOTE: This is an emergent endotracheal intubation. INDICATION: Hypercapnic respiratory failure. The patient was pre-oxygenated with 100% FiO2 via Ambu bag. One liter of normal saline given wide open right before procedure. Direct laryngoscopy performed with MAC three curve blade. Vocal cords visualized and trachea cannulated with 7.5 [place] endotracheal tube. Position confirmed with change in the color of end-tidal CO2 monitor, bilateral lung auscultation, gastric auscultation. Chest x-ray confirmed correct position of the endotracheal tube. Patient tolerated procedure well. Vital signs were monitored throughout the procedure. No immediate complication. Maksim Martinez MD MTDD
[2017-10-09] MEDS: cefTRIAXone 1 gm 1 GM/100 ML BAG IVPB SCH (09:24)
--- NOTE | 2017-10-09 09:25 | RAD ---
HISTORY: Intubated COMPARISON: 10/08/2017. FINDINGS: The endotracheal tube terminates at the daniela. The nasogastric tube terminates in the stomach. LUNGS: The lungs are well inflated. The right lung is clear. There is left basilar atelectasis. PLEURA: No significant pleural effusion identified, no pneumothorax apparent. CARDIOVASCULAR: The cardiomediastinal silhouette is stable. OSSEOUS STRUCTURES: No significant abnormalities. VISUALIZED UPPER ABDOMEN: Normal. OTHER FINDINGS: None. IMPRESSION: Endotracheal tube is low in position and terminates at the daniela. Repositioning is recommended. Minimal left basilar atelectasis. No focal consolidation.
[2017-10-09] MEDS: Azithromycin 500MG/NS 250ml 500 MG/250 ML BAG IVPB SCH (09:26)
[2017-10-09 09:49] LABS: BASO # 0.01 K/mm3 (0.0-2.0); BASO % 0.1 % (0.0-3.0); GRAN # 6.59 (1.4-6.5); GRAN % 74.9 % (50.0-68.0); HEMOGLOBIN 10.5 g/dL (12.0-16.0); LYMPH # 1.8 (1.2-3.4); LYMPH % 20.2 % (22.0-35.0); MEAN CORPUSCULAR HEMOGLOBIN 28.7 pg (25.0-35.0); MEAN CORPUSCULAR HGB CONC 29.1 g/dl (31.0-37.0); MEAN PLATELET VOLUME 11.2 fl (7.0-11.0); MONO # 0.4 (0.1-0.6); MONO % 4.8 % (1.0-6.0); RBC 3.66 10^6/uL (3.5-6.1); RED CELL DISTRIBUTION WIDTH 14.3 % (11.5-14.5); WHITE BLOOD COUNT 8.8 10^3/ul (4.5-11.0)
[2017-10-09 09:54] LABS: MEAN CELL VOLUME 98.6 fl (80.0-105.0)
[2017-10-09 10:07] LABS: ALB/GLOB RATIO 1.1 (1.1-1.8); ALBUMIN 3.7 g/dL (3.0-4.8); CALCIUM 9.1 mg/dL (8.4-10.5); MAGNESIUM 2.4 mg/dL (1.7-2.2)
--- NOTE | 2017-10-09 10:31 | CARD ---
APPROVED REPORT EKG Measurement Heart [id number] <Conclusion> Sinus bradycardia Left axis deviation ST & T wave abnormality, consider inferolateral ischemia, new
[2017-10-09 11:04] LABS: ARTERIAL BLOOD GAS HCO3 22.9 mmol/L (21-28); ARTERIAL BLOOD GAS O2 CAPACITY 12.7 mL/dl (16-24); ARTERIAL BLOOD GAS O2 CONTENT 12.6 ML/dl (15-23); ARTERIAL BLOOD GAS O2 SAT 99.4 % (95-98); ARTERIAL BLOOD GAS PCO2 51 mm/Hg (35-45); ARTERIAL BLOOD GAS PH 7.26 (7.35-7.45); ARTERIAL BLOOD GAS TCO2 24.5 mmol.L (22-28)
[2017-10-09] MEDS ORDERED: Sodium Chloride 0.45% 1,000 ML IV SCH ×2 (11:30)
--- NOTE | 2017-10-09 12:11 | CP.PCM.PN ---
<Ember Magaña - Last Filed: 10/09/17 12:05> Subjective - Date & Time of Evaluation Date of Evaluation: 10/09/17 Time of Evaluation: 12:05 - Subjective Subjective: Ember Magaña, PGY1, Medicine Progress Note for Dr Dowling: Patient seen and examined at bedside. Pt's Na dropped to 149 overnight with hyperkalemia 6.0. Pt was started on LR and given insulin with D50 and calcium gluconate. Pt awake, intubated, responds to verbal stimuli, follows some commands. Denies pain. ROS limited due to intubation. Objective - Vital Signs/Intake and Output Vital Signs (last 24 hours): Temp Pulse Resp BP Pulse Ox 97.7 F 85 13 143/71 100 10/09/17 04:00 10/09/17 09:50 10/09/17 06:00 10/09/17 09:01 10/09/17 09:50 Intake and Output: 10/09/17 10/09/17 06:59 18:59 Intake Total 1835 Output Total 350 Balance 1485 - Medications Medications: Current Medications Acetaminophen (Tylenol 325mg Tab) 650 mg PO Q4H PRN PRN Reason: Fever >100.4 F Albuterol/Ipratropium (Duoneb 3 Mg/0.5 Mg (3 Ml) Ud) 3 ml IH [id number] DAVID Last Admin: 10/09/17 11:40 Dose: 3 ml Heparin Sodium (Porcine) (Heparin) 5,000 units SC Q8 [facility] PRN Reason: Protocol Last Admin: 10/09/17 05:31 Dose: 5,000 units Hydralazine HCl (Apresoline) 10 mg IVP Q8H PRN PRN Reason: Systolic Blood Pressure Last Admin: 10/09/17 02:12 Dose: 10 mg Ceftriaxone Sodium (Rocephin 1 Gram Ivpb) 1 gm in 100 mls @ 100 mls/hr IVPB DAILY [facility] PRN Reason: Protocol Last Admin: 10/09/17 09:24 Dose: 100 mls/hr Azithromycin (Zithromax 500mg In Ns) 500 mg in 250 mls @ 167 mls/hr IVPB DAILY [facility] PRN Reason: Protocol Last Admin: 10/09/17 09:26 Dose: 167 mls/hr Propofol (Diprivan) 1,000 mg in 100 mls @ 1.837 mls/hr IV .Q24H PRN; Protocol; 5 MCG/KG/MIN PRN Reason: TITRATE PER MD ORDER Last Admin: 10/08/17 16:37 Dose: 5 mcg/kg/min, 1.837 mls/hr Sodium Chloride (Sodium Chloride 0.45%) 1,000 mls @ 150 mls/hr IV .Q6H40M [facility] Methylprednisolone (Solu-Medrol) 40 mg IVP Q8H [facility] Last Admin: 10/09/17 05:31 Dose: 40 mg Pantoprazole Sodium (Protonix Inj) 40 mg IVP DAILY [facility] Last Admin: 10/09/17 09:24 Dose: 40 mg - Labs Labs: 10/09/17 09:30 10/09/17 09:30 PT 10.7 SECONDS (9.4-12.5) 10/07/17 23:39 INR 0.94 (0.93-1.08) 10/07/17 23:39 APTT 34.5 Seconds (25.1-36.5) 10/07/17 23:39 - Constitutional Appears: No Acute Distress, Older Than Stated Age, Chronically Ill - Head Exam Head Exam: ATRAUMATIC, NORMOCEPHALIC - Eye Exam Eye Exam: EOMI, PERRL. absent: Conjunctival injection, Scleral icterus Pupil Exam: PERRL. absent: Fixed, Irregular - ENT Exam ENT Exam: Mucous Membranes Moist - Neck Exam Neck Exam: Full ROM - Respiratory Exam Respiratory Exam: Decreased Breath Sounds. absent: Accessory Muscle Use, Rhonchi, Wheezes, Stridor Additional comments: remains intubated on prvc - Cardiovascular Exam Cardiovascular Exam: +S1, +S2. absent: Murmur - GI/Abdominal Exam GI & Abdominal Exam: Soft, Normal Bowel Sounds. absent: Distended, Guarding, Tenderness, Organomegaly, Rebound - Extremities Exam Extremities Exam: absent: Calf Tenderness, Pedal Edema - Back Exam Back Exam: NORMAL INSPECTION - Neurological Exam Neurological Exam: Alert, Altered, Awake Additional comments: responds to verbal/tactile stimuli, moving around, follows some commands. - Skin Skin Exam: Dry, Normal Color, Warm Assessment and Plan - Assessment and Plan (Free Text) Assessment: 77 year old female with PMH HTN, asthma, Parkinson's?, admitted for AMS, failure to thrive, AVERY, hypernatremia, found to be in resp distress: Hypercapneic Respiratrory acidosis: 2/2 asthma - Intubated, prvc setting. Management as per ICU. -monitor ABGs -Duoneb 3ml inh q4 -Solumedrol 40mg ivp q8 -Rocephin 1gm ivpb qd (start 10/08) -Zithromax 500mg ivpb qd (start 10/08) AMS: - 2/2 hypernatremia vs worsening dementia vs delirium -awake but altered -baseline patient is unable to complete ADLs and unable to ambulate by her self -CT head: 3mm round hyperdensity in the left temporal lobe inferiously and cannot exclude a tiny acute intraparenchymal bleed -1/2NS @ 150cc/hr -TSH nrml, RPR NR, Vit B12 >1000, folate >20 -f/u MRI brain, MRA head and neck -head of bed > 45 - Blood cultures NTD -Na q6h. On admission Na 165->155 this AM. Avoid rapid correction. Management as per ICU and Nephro. -Dr. Matias on board. Appreciate recs. Hyperkalemia: -K 6 overnight. received insulin with D50, calcium gluconate. - K 5.1 this AM. Cont to monitor. Failure to thrive: - Dehydrated, no oral intake over several days - Intubated, Swallow eval - Sandblaster Supervisor Referral AVERY Likely secondary to dehydration vs ATN - Nephro on board. Appreciate recs. - Urine culture ntd Prophylaxis Protonix heparin Sq Discussed with Dr Dowling. Ember Magaña, PGY1 <Cheyanne Dowling - Last Filed: 10/09/17 13:06> Objective - Vital Signs/Intake and Output Vital Signs (last 24 hours): Temp Pulse Resp BP Pulse Ox 97.7 F 85 13 143/71 100 10/09/17 04:00 10/09/17 09:50 10/09/17 06:00 10/09/17 09:01 10/09/17 09:50 Intake and Output: 10/09/17 10/09/17 06:59 18:59 Intake Total 1835 Output Total 350 Balance 1485 - Medications Medications: Current Medications Acetaminophen (Tylenol 325mg Tab) 650 mg PO Q4H PRN PRN Reason: Fever >100.4 F Albuterol/Ipratropium (Duoneb 3 Mg/0.5 Mg (3 Ml) Ud) 3 ml IH [id number] [facility] Last Admin: 10/09/17 11:40 Dose: 3 ml Cholecalciferol (Vitamin D) 2,000 intlu PO DAILY [facility] Heparin Sodium (Porcine) (Heparin) 5,000 units SC Q8 [facility] PRN Reason: Protocol Last Admin: 10/09/17 05:31 Dose: 5,000 units Hydralazine HCl (Apresoline) 10 mg IVP Q8H PRN PRN Reason: Systolic Blood Pressure Last Admin: 10/09/17 02:12 Dose: 10 mg Ceftriaxone Sodium (Rocephin 1 Gram Ivpb) 1 gm in 100 mls @ 100 mls/hr IVPB DAILY [facility] PRN Reason: Protocol Last Admin: 10/09/17 09:24 Dose: 100 mls/hr Azithromycin (Zithromax 500mg In Ns) 500 mg in 250 mls @ 167 mls/hr IVPB DAILY [facility] PRN Reason: Protocol Last Admin: 10/09/17 09:26 Dose: 167 mls/hr Propofol (Diprivan) 1,000 mg in 100 mls @ 1.837 mls/hr IV .Q24H PRN; Protocol; 5 MCG/KG/MIN PRN Reason: TITRATE PER MD ORDER Last Admin: 10/08/17 16:37 Dose: 5 mcg/kg/min, 1.837 mls/hr Sodium Chloride (Sodium Chloride 0.45%) 1,000 mls @ 150 mls/hr IV .Q6H40M [facility] Methylprednisolone (Solu-Medrol) 40 mg IVP Q8H [facility] Last Admin: 10/09/17 05:31 Dose: 40 mg Pantoprazole Sodium (Protonix Inj) 40 mg IVP DAILY [facility] Last Admin: 10/09/17 09:24 Dose: 40 mg - Labs Labs: 10/09/17 09:30 10/09/17 09:30 PT 10.7 SECONDS (9.4-12.5) 10/07/17 23:39 INR 0.94 (0.93-1.08) 10/07/17 23:39 APTT 34.5 Seconds (25.1-36.5) 10/07/17 23:39 Attending/Attestation - Attestation I have personally seen and examined this patient.: Yes I have fully participated in the care of the patient.: Yes I have reviewed all pertinent clinical information, including history, physical exam and plan: Yes Notes (Text): 10/09/17 13:02 77 year old female with past medical history of hypertension and asthma who presented with altered mental status and failure to thrive. She was found to have severe hypernatremia and AVERY. She also was intubated and admitted to the ICU. Continue with fluids as per nephrology. Sodium and creatinine levels are improving. CT head was reviewed which showed 3 mm hyperdensity in the left temporal lobe. Neurology is following and ordered for MRI/MRA studies. 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 She had hyperkalemia earlier this morning which is improved. Will monitor. Cheyanne Dowling MD Hospitalist.
--- NOTE | 2017-10-09 14:05 | RAD ---
PROCEDURE: Portable chest HISTORY: insertion of midline COMPARISON: TECHNIQUE: FINDINGS: Endotracheal and nasogastric tubes in satisfactory position IMPRESSION: There is a new left central line that terminates in satisfactory position at the junction of the SVC and right atrium
[2017-10-09 14:29] LABS: CALCIUM 8.7 mg/dL (8.4-10.5)
--- NOTE | 2017-10-09 15:40 | CP.PCM.PN ---
Subjective - Date & Time of Evaluation Date of Evaluation: 10/09/17 Time of Evaluation: 15:38 - Subjective Subjective: Follow up Nephrology Consultation: Assessment: critical Acute Kidney Injury (N17.9) likely dehydration, pre--renal state and ATN Hypernatremia: improving HTN, possible pneumonia, COPD Anemia hypercapnic respi failure likely has underlying CKD ? stage (echogenic kidneys on sono) Plan No acute need for renal replacement therapy at this time. Hypertension control with meds as ordered. Patient not on ACEI/ARB due to AVERY Monitor Input/Output, daily weights and renal function with basic metabolic panel continue with 0.45% saline at 100 ml/hr SPEP/DEBBIE/[place]/lambda and vit D/PTH sent. urine studies as ordered, anemia work up Dose meds/antibiotics for reduced GFR. Avoid fleets enema/magnesium based laxatives. Avoid nephrotoxins/NSAIDs/ iodinated contrast (unless needed emergently) Glycemic control Further work up/management as per primary team Thanks for allowing me to participate in care of your patient. Will follow patient with you. Please call if any Qs. d/w team Dr Hammad Feldman Office: [phone] Chief Complaint; Unable Source of Info: medical chart review HPI: Pt is a 77 y/o F with hx of hypertension, asthma, parkinson disease came with AMS, decreased oral intake, CO2 retention AVERY and hypernatremia hence renal consulted. pt unable to provide any hx No known recent iodinated contrast exposure. No obvious episodes of low BP. ROS: unable Physical Examination: General Appearance: elderly appearing female Vitals reviewed and noted as below Head; Atraumatic, normocephalic ENT: orally intubated EYES: Pupils are equal, round and reactive to light accommodation. Eye muscles and extraocular movement intact. Sclera is anicteric. Neck; supple no lymphadenopathy, no thyromegaly or bruit Lungs: increased respiratory rate/effort. Breath sounds bilateral decreased at bases she is mechanically ventilated Heart: Normal rate. s1s2 normal. No rub or gallop. Extremities: no edema. No varicose veins Neurological: Patient is sedated Skin: Warm and dry. Normal turgor. No rash. Palpitation: Normal elasticity for age Abdomen: Abdomen is soft. Bowel sounds +. There is no abdominal tenderness, no guarding/rigidity no organomegaly. has myoclonus jerks Psych:unable MSK: no joint tenderness or swelling. Digits and nails normal, no deformity : kidney or bladder not palpable Labs/imaging/EKG reviewed. Past medical history, past surgical history, family history, social history, allergy reviewed and noted as below family hx: unable to obtain renal sono; echogenic kidneys Objective - Vital Signs/Intake and Output Vital Signs (last 24 hours): Temp Pulse Resp BP Pulse Ox 97.7 F 55 L 13 143/71 100 10/09/17 04:00 10/09/17 10:00 10/09/17 06:00 10/09/17 09:01 10/09/17 09:50 Intake and Output: 10/09/17 10/09/17 06:59 18:59 Intake Total 1835 Output Total 350 Balance 1485 - Medications Medications: Current Medications Acetaminophen (Tylenol 325mg Tab) 650 mg PO Q4H PRN PRN Reason: Fever >100.4 F Albuterol/Ipratropium (Duoneb 3 Mg/0.5 Mg (3 Ml) Ud) 3 ml IH [id number] [facility] Last Admin: 10/09/17 11:40 Dose: 3 ml Cholecalciferol (Vitamin D) 2,000 intlu PO DAILY [facility] Heparin Sodium (Porcine) (Heparin) 5,000 units SC Q8 [facility] PRN Reason: Protocol Last Admin: 10/09/17 05:31 Dose: 5,000 units Hydralazine HCl (Apresoline) 10 mg IVP Q8H PRN PRN Reason: Systolic Blood Pressure Last Admin: 10/09/17 02:12 Dose: 10 mg Ceftriaxone Sodium (Rocephin 1 Gram Ivpb) 1 gm in 100 mls @ 100 mls/hr IVPB DAILY [facility] PRN Reason: Protocol Last Admin: 10/09/17 09:24 Dose: 100 mls/hr Azithromycin (Zithromax 500mg In Ns) 500 mg in 250 mls @ 167 mls/hr IVPB DAILY [facility] PRN Reason: Protocol Last Admin: 10/09/17 09:26 Dose: 167 mls/hr Propofol (Diprivan) 1,000 mg in 100 mls @ 1.837 mls/hr IV .Q24H PRN; Protocol; 5 MCG/KG/MIN PRN Reason: TITRATE PER MD ORDER Last Admin: 10/08/17 16:37 Dose: 5 mcg/kg/min, 1.837 mls/hr Sodium Chloride (Sodium Chloride 0.45%) 1,000 mls @ 100 mls/hr IV .Q10H [facility] Methylprednisolone (Solu-Medrol) 40 mg IVP Q8H [facility] Last Admin: 10/09/17 05:31 Dose: 40 mg Pantoprazole Sodium (Protonix Inj) 40 mg IVP DAILY [facility] Last Admin: 10/09/17 09:24 Dose: 40 mg - Labs Labs: 10/09/17 09:30 10/09/17 13:42 PT 10.7 SECONDS (9.4-12.5) 10/07/17 23:39 INR 0.94 (0.93-1.08) 10/07/17 23:39 APTT 34.5 Seconds (25.1-36.5) 10/07/17 23:39
[2017-10-09] MEDS: Sodium Chloride 0.45% 1,000 ML IV SCH (16:13)
[2017-10-09 19:29] LABS: CALCIUM 8.4 mg/dL (8.4-10.5)
--- NOTE | 2017-10-09 19:30 | PN ---
DATE: 10/09/2017 SUBJECTIVE: The patient seen and examined at bedside. The patient is comfortable when sedated and appears to be uncomfortable off of sedation. Sedation vacation was done in the morning. The patient started retaining CO2 based on ABG and become more tachypneic, tachycardic and was put back on PRVC. ABG during pressure support trial showed 7.26/51/147 on 40% FIO2. OBJECTIVE: VITAL SIGNS: Heart rate 54, respiratory rate 11, oxygen saturation 100%, blood pressure 103/69. ENT: Head and neck atraumatic. LUNGS: Decreased breath sounds bilaterally. HEART: Regular rate and rhythm. S1 and S2 normal. ABDOMEN: Soft, nontender, nondistended. MUSCULOSKELETAL: Trace bilateral pedal and ankle edema. NEUROLOGIC: The patient moves all extremities spontaneously. SKIN: Moist. PSYCHIATRIC: The patient is not following commands. LABORATORY DATA: WBC 8.8, hemoglobin 10.5, platelet count 214. Sodium 146, potassium 5, chloride 113, BUN 95, creatinine 3.7, glucose 114. MEDICATIONS: Half normal saline 100 mL/hour, Tylenol p.r.n., DuoNeb every 4 hours, heparin subcu, hydralazine p.r.n., Solu-Medrol 40 mg IV q. 8 h., Protonix, propofol, ceftriaxone, azithromycin. ASSESSMENT AND PLAN: This is a 77-year-old lady who presented with hypercapnic respiratory failure secondary to her chronic obstructive pulmonary disease(emphysema)/asthma/ACOS. At present time, the patient is on bronchodilators, steroid taper, and antibiotics. She failed pressure support trial today and was put back on PRVC. The patient is sedated on propofol drip. We will continue to target euvolemia, euglycemia, normothermia, and oxygen saturation more than 90%. creatinine is improving. Urine output has picked up. Hypernatremia is resolving. We will continue with DVT, GI prophylaxis. ccm time 40 min Maksim Martinez MD [facility]
[2017-10-10] MEDS: Propofol 10 mg/ml 1,000 MG/100 ML VIAL IV PRN
[2017-10-10] MEDS: Albuterol-Ipratrop 3 mg / 0.5 (3 ml) UD IH SCH ×7 (00:30→23:50)
[2017-10-10] MEDS: Sodium Chloride 0.45% 1,000 ML IV SCH ×2 (01:30→11:21)
[2017-10-10] MEDS: MethylPREDNISolone 40 mg Vial IVP SCH ×2 (05:12→22:21)
[2017-10-10 06:26] LABS: GRAN # 6.49 (1.4-6.5); HEMOGLOBIN 9.3 g/dL (12.0-16.0); LYMPH # 1.2 (1.2-3.4); LYMPH % 14.5 % (22.0-35.0); MEAN CELL VOLUME 94.8 fl (80.0-105.0); MEAN CORPUSCULAR HEMOGLOBIN 28.7 pg (25.0-35.0); MEAN CORPUSCULAR HGB CONC 30.3 g/dl (31.0-37.0); MEAN PLATELET VOLUME 11.7 fl (7.0-11.0); MONO # 0.3 (0.1-0.6); MONO % 3.5 % (1.0-6.0); RBC 3.24 10^6/uL (3.5-6.1); WHITE BLOOD COUNT 7.9 10^3/ul (4.5-11.0)
[2017-10-10 06:41] LABS: ALBUMIN 3.3 g/dL (3.0-4.8); CALCIUM 8.3 mg/dL (8.4-10.5); MAGNESIUM 2.1 mg/dL (1.7-2.2)
[2017-10-10] MEDS: Midazolam 100 mg/100ml in NS 100 MG/100 ML SOL IV PRN (08:03)
--- NOTE | 2017-10-10 09:53 | RAD ---
HISTORY: Intubated COMPARISON: Yesterday FINDINGS: LUNGS: Left PICC line is stable in position in the superior vena cava. Endotracheal tube is noted with its tip in the mid trachea. NG tube is seen in the stomach. Lung chiang are clear without new infiltrate. No pneumothorax or new effusion is seen. Heart is once again enlarged. There is moderate uncoiling and mild aneurysmal dilatation of the aorta, unchanged. PLEURA: See above CARDIOVASCULAR: See above OSSEOUS STRUCTURES: No significant abnormalities. VISUALIZED UPPER ABDOMEN: Normal. OTHER FINDINGS: None. IMPRESSION: No new infiltrate. Status post intubation.
[2017-10-10] MEDS: cefTRIAXone 1 gm 1 GM/100 ML BAG IVPB SCH (09:55)
[2017-10-10] MEDS: Cholecalciferol 1,000 INTLU TAB PO SCH (09:55)
[2017-10-10] MEDS: Azithromycin 500MG/NS 250ml 500 MG/250 ML BAG IVPB SCH (09:58)
--- NOTE | 2017-10-10 10:34 | CP.PCM.PN ---
Subjective - Date & Time of Evaluation Date of Evaluation: 10/10/17 Time of Evaluation: 07:10 - Subjective Subjective: Pt seen and examined, remains intubated, sedated. Objective - Vital Signs/Intake and Output Vital Signs (last 24 hours): Temp Pulse Resp BP Pulse Ox 97.3 F L 41 L 14 157/100 H 100 10/10/17 08:00 10/10/17 08:50 10/10/17 08:50 10/10/17 08:00 10/10/17 08:50 Intake and Output: 10/10/17 10/10/17 06:59 18:59 Intake Total 1310 Output Total 500 Balance 810 - Medications Medications: Current Medications Acetaminophen (Tylenol 325mg Tab) 650 mg PO Q4H PRN PRN Reason: Fever >100.4 F Albuterol/Ipratropium (Duoneb 3 Mg/0.5 Mg (3 Ml) Ud) 3 ml IH [id number] [facility] Last Admin: 10/10/17 08:43 Dose: 3 ml Cholecalciferol (Vitamin D) 2,000 intlu PO DAILY [facility] Last Admin: 10/10/17 09:55 Dose: 2,000 intlu Heparin Sodium (Porcine) (Heparin) 5,000 units SC Q8 [facility] PRN Reason: Protocol Last Admin: 10/10/17 05:10 Dose: 5,000 units Hydralazine HCl (Apresoline) 10 mg IVP Q8H PRN PRN Reason: Systolic Blood Pressure Last Admin: 10/09/17 02:12 Dose: 10 mg Ceftriaxone Sodium (Rocephin 1 Gram Ivpb) 1 gm in 100 mls @ 100 mls/hr IVPB DAILY [facility] PRN Reason: Protocol Last Admin: 10/10/17 09:55 Dose: 100 mls/hr Azithromycin (Zithromax 500mg In Ns) 500 mg in 250 mls @ 167 mls/hr IVPB DAILY [facility] PRN Reason: Protocol Last Admin: 10/10/17 09:58 Dose: 167 mls/hr Midazolam 100 mg/100ml in NS (Midazolam 100 Mg/100ml In Ns) 100 mg in 100 mls @ 1 mls/hr IV .Q24H PRN; Protocol; 1 MG/HR PRN Reason: Agitation Last Admin: 10/10/17 08:03 Dose: 1 mg/hr, 1 mls/hr Sodium Chloride (Sodium Chloride 0.45%) 1,000 mls @ 50 mls/hr IV .Q20H [facility] Methylprednisolone (Solu-Medrol) 40 mg IVP Q12 [facility] Pantoprazole Sodium (Protonix Inj) 40 mg IVP DAILY [facility] Last Admin: 10/10/17 09:55 Dose: 40 mg - Labs Labs: 10/10/17 06:10 10/10/17 06:10 PT 10.7 SECONDS (9.4-12.5) 10/07/17 23:39 INR 0.94 (0.93-1.08) 10/07/17 23:39 APTT 34.5 Seconds (25.1-36.5) 10/07/17 23:39 - Constitutional Appears: Non-toxic, No Acute Distress - Eye Exam Eye Exam: Normal appearance - ENT Exam ENT Exam: Mucous Membranes Moist - Respiratory Exam Respiratory Exam: Clear to Ausculation Bilateral, NORMAL BREATHING PATTERN - Cardiovascular Exam Cardiovascular Exam: REGULAR RHYTHM, +S1, +S2 - GI/Abdominal Exam GI & Abdominal Exam: Soft, Normal Bowel Sounds - Extremities Exam Extremities Exam: Normal Inspection Assessment and Plan - Assessment and Plan (Free Text) Plan: 77yo femalw a/w hypercapnic resp failure Hypercapnic Resp Failure COPD Hypernatremia Bradycardia, Sinus Recommend: - cont with vent support, low tidal vol ventilation, daily cpap trials - cont with Rocephin, Azithro - IV steroids, taper - FS control - Cont with 1/2NS, free water flushes - ECHO - monitor electrolytes - Switch Propofol to Versed (bradycardia) - GI ppx, PPI - DVT pp, HSQ - Prognosis poor Critical care time 35 minutes
--- NOTE | 2017-10-10 11:05 | CP.PCM.PN ---
Subjective - Date & Time of Evaluation Date of Evaluation: 10/10/17 Time of Evaluation: 11:03 - Subjective Subjective: RENAL FOLLOWUP IMPRESSION: Acute Kidney Injury (N17.9) likely dehydration, pre--renal state and ATN Hypernatremia: improving HTN, possible pneumonia, COPD Anemia hypercapnic respi failure likely has underlying CKD ? stage (echogenic kidneys on sono) Plan No acute need for renal replacement therapy at this time. B/l Cr unknown - ? b/l. Continue gentle hydration, can reduce 1/2 ns to 50 cc/hr continue free water flush SPEP/DEBBIE/[place]/lambda and vit D/PTH sent. urine studies as ordered, anemia work up cont to monitor h and h discussed w/ housestaff and ICU team Subjective: no acute events, intubated and sedated Physical Examination: General Appearance: elderly appearing female Vitals reviewed and noted as below Head; Atraumatic, normocephalic ENT: orally intubated EYES: Pupils are equal, round and reactive to light accommodation. Eye muscles and extraocular movement intact. Sclera is anicteric. Neck; supple no lymphadenopathy, no thyromegaly or bruit Lungs: increased respiratory rate/effort. Breath sounds bilateral decreased at bases she is mechanically ventilated Heart: Normal rate. s1s2 normal. No rub or gallop. Extremities: no edema. No varicose veins Neurological: Patient is sedated Skin: Warm and dry. Normal turgor. No rash. Palpitation: Normal elasticity for age Abdomen: Abdomen is soft. Bowel sounds +. There is no abdominal tenderness, no guarding/rigidity no organomegaly. Psych:intubated and sedated MSK: no joint tenderness or swelling. Digits and nails normal, no deformity : kidney or bladder not palpable Labs/imaging/EKG reviewed. Past medical history, past surgical history, family history, social history, allergy reviewed and noted as below family hx: unable to obtain renal sono; echogenic kidneys Objective - Vital Signs/Intake and Output Vital Signs (last 24 hours): Temp Pulse Resp BP Pulse Ox 97.3 F L 41 L 14 157/100 H 100 10/10/17 08:00 10/10/17 08:50 10/10/17 08:50 10/10/17 08:00 10/10/17 08:50 Intake and Output: 10/10/17 10/10/17 06:59 18:59 Intake Total 1310 Output Total 500 Balance 810 - Medications Medications: Current Medications Acetaminophen (Tylenol 325mg Tab) 650 mg PO Q4H PRN PRN Reason: Fever >100.4 F Albuterol/Ipratropium (Duoneb 3 Mg/0.5 Mg (3 Ml) Ud) 3 ml IH [id number] [facility] Last Admin: 10/10/17 08:43 Dose: 3 ml Cholecalciferol (Vitamin D) 2,000 intlu PO DAILY [facility] Last Admin: 10/10/17 09:55 Dose: 2,000 intlu Heparin Sodium (Porcine) (Heparin) 5,000 units SC Q8 [facility] PRN Reason: Protocol Last Admin: 10/10/17 05:10 Dose: 5,000 units Hydralazine HCl (Apresoline) 10 mg IVP Q8H PRN PRN Reason: Systolic Blood Pressure Last Admin: 10/09/17 02:12 Dose: 10 mg Ceftriaxone Sodium (Rocephin 1 Gram Ivpb) 1 gm in 100 mls @ 100 mls/hr IVPB DAILY [facility] PRN Reason: Protocol Last Admin: 10/10/17 09:55 Dose: 100 mls/hr Azithromycin (Zithromax 500mg In Ns) 500 mg in 250 mls @ 167 mls/hr IVPB DAILY [facility] PRN Reason: Protocol Last Admin: 10/10/17 09:58 Dose: 167 mls/hr Midazolam 100 mg/100ml in NS (Midazolam 100 Mg/100ml In Ns) 100 mg in 100 mls @ 1 mls/hr IV .Q24H PRN; Protocol; 1 MG/HR PRN Reason: Agitation Last Admin: 10/10/17 08:03 Dose: 1 mg/hr, 1 mls/hr Sodium Chloride (Sodium Chloride 0.45%) 1,000 mls @ 50 mls/hr IV .Q20H [facility] Methylprednisolone (Solu-Medrol) 40 mg IVP Q12 [facility] Pantoprazole Sodium (Protonix Inj) 40 mg IVP DAILY [facility] Last Admin: 10/10/17 09:55 Dose: 40 mg - Labs Labs: 10/10/17 06:10 10/10/17 06:10 PT 10.7 SECONDS (9.4-12.5) 10/07/17 23:39 INR 0.94 (0.93-1.08) 10/07/17 23:39 APTT 34.5 Seconds (25.1-36.5) 10/07/17 23:39
--- NOTE | 2017-10-10 11:29 | RAD ---
HISTORY: cardiomegaly COMPARISON: 10/10/2017 at 5:00 FINDINGS: LUNGS: Endotracheal tube and NG tube are unchanged. Left PICC line is unchanged. No new infiltrate is seen. Vasculature is stable. Heart and aorta are unchanged. PLEURA: No significant pleural effusion identified, no pneumothorax apparent. CARDIOVASCULAR: Normal. OSSEOUS STRUCTURES: No significant abnormalities. VISUALIZED UPPER ABDOMEN: Normal. OTHER FINDINGS: None. IMPRESSION: No new infiltrate. Status post intubation.
--- NOTE | 2017-10-10 12:41 | CP.PCM.PN ---
<Heidy Nathan - Last Filed: 10/10/17 13:37> Subjective - Date & Time of Evaluation Date of Evaluation: 10/10/17 Time of Evaluation: 09:00 - Subjective Subjective: PGY-2 Progress note for hospitalist service Patient seen and examined at bedside in ICU. No acute events overnight per nurse. Patient is currently sedated and intubated on PRVC. Objective - Vital Signs/Intake and Output Vital Signs (last 24 hours): Temp Pulse Resp BP Pulse Ox 97.3 F L 67 14 107/69 100 10/10/17 08:00 10/10/17 11:48 10/10/17 11:48 10/10/17 11:49 10/10/17 11:48 Intake and Output: 10/10/17 10/10/17 06:59 18:59 Intake Total 1310 Output Total 500 Balance 810 - Medications Medications: Current Medications Acetaminophen (Tylenol 325mg Tab) 650 mg PO Q4H PRN PRN Reason: Fever >100.4 F Albuterol/Ipratropium (Duoneb 3 Mg/0.5 Mg (3 Ml) Ud) 3 ml IH [id number] [facility] Last Admin: 10/10/17 08:43 Dose: 3 ml Cholecalciferol (Vitamin D) 2,000 intlu PO DAILY [facility] Last Admin: 10/10/17 09:55 Dose: 2,000 intlu Heparin Sodium (Porcine) (Heparin) 5,000 units SC Q8 [facility] PRN Reason: Protocol Last Admin: 10/10/17 05:10 Dose: 5,000 units Hydralazine HCl (Apresoline) 10 mg IVP Q8H PRN PRN Reason: Systolic Blood Pressure Last Admin: 10/10/17 11:15 Dose: 10 mg Ceftriaxone Sodium (Rocephin 1 Gram Ivpb) 1 gm in 100 mls @ 100 mls/hr IVPB DAILY [facility] PRN Reason: Protocol Last Admin: 10/10/17 09:55 Dose: 100 mls/hr Azithromycin (Zithromax 500mg In Ns) 500 mg in 250 mls @ 167 mls/hr IVPB DAILY [facility] PRN Reason: Protocol Last Admin: 10/10/17 09:58 Dose: 167 mls/hr Midazolam 100 mg/100ml in NS (Midazolam 100 Mg/100ml In Ns) 100 mg in 100 mls @ 1 mls/hr IV .Q24H PRN; Protocol; 1 MG/HR PRN Reason: Agitation Last Admin: 10/10/17 08:03 Dose: 1 mg/hr, 1 mls/hr Sodium Chloride (Sodium Chloride 0.45%) 1,000 mls @ 50 mls/hr IV .Q20H [facility] Last Admin: 10/10/17 11:21 Dose: 50 mls/hr Methylprednisolone (Solu-Medrol) 40 mg IVP Q12 [facility] Pantoprazole Sodium (Protonix Inj) 40 mg IVP DAILY [facility] Last Admin: 10/10/17 09:55 Dose: 40 mg - Labs Labs: 10/10/17 06:10 10/10/17 06:10 PT 10.7 SECONDS (9.4-12.5) 10/07/17 23:39 INR 0.94 (0.93-1.08) 10/07/17 23:39 APTT 34.5 Seconds (25.1-36.5) 10/07/17 23:39 - Constitutional Appears: No Acute Distress - Head Exam Head Exam: ATRAUMATIC, NORMAL INSPECTION, NORMOCEPHALIC - Eye Exam Eye Exam: Normal appearance - ENT Exam ENT Exam: Mucous Membranes Moist - Respiratory Exam Respiratory Exam: Clear to Ausculation Bilateral, NORMAL BREATHING PATTERN. absent: Rhonchi, Wheezes, Respiratory Distress - Cardiovascular Exam Cardiovascular Exam: REGULAR RHYTHM, +S1, +S2. absent: Tachycardia, Murmur - GI/Abdominal Exam GI & Abdominal Exam: Soft, Normal Bowel Sounds. absent: Distended, Firm, Guarding, Tenderness - Extremities Exam Extremities Exam: Normal Inspection. absent: Pedal Edema, Tenderness - Neurological Exam Neurological Exam: Alert, Awake, CN II-XII Intact, Oriented x3 - Skin Skin Exam: Dry, Intact, Normal Color, Warm Assessment and Plan - Assessment and Plan (Free Text) Assessment: 77 year old female with PMH HTN, asthma, Parkinson's?, admitted for AMS, failure to thrive, AVERY, hypernatremia, found to be in resp distress s/p intubation Plan: Hypercapneic Respiratory acidosis: - due to asthma - [facility] Management as per ICU. - patient failed breathing trial yesterday - monitor ABGs, patient is retaining co2 - Duoneb 3ml inh q4 - Solumedrol 40mg ivp q8 - Rocephin 1gm ivpb qd (start 10/08, day 3) - Zithromax 500mg ivpb qd (start 10/08, day 3) AMS: - 2/2 hypernatremia vs worsening dementia vs delirium - patient is sedated - baseline patient is unable to complete ADLs and unable to ambulate by her self - CT head: 3mm round hyperdensity in the left temporal lobe inferiously and cannot exclude a tiny acute intraparenchymal bleed, repeat showed similar finding - MRI brain, MRA head and neck pending - TSH normal, RPR NonReactive, Vit B12 >1000, folate >20 - head of bed > 45 - Blood cultures negative, urine cultures negative - neurology consulted Hypernatremia - decreased - On admission Na 165->155 yesterday. today 147 AM. - Avoid rapid correction - continue free water flushes - 1/2NS @50cc - ICU following - Nephro consulted will follow recommendation. Hyperkalemia: - improved 4.8 this am - Cont to monitor, correct as needed. Failure to thrive: - Dehydrated, no oral intake over several days - Intubated - Swallow eval once extubated - Operations Trainer Referral AVERY - Likely secondary to dehydration vs ATN - FENa was 2.5, intrinsic - creatinine 3.8, improved from admission, unknown baseline possible underlying ckd - Nephro on board. Appreciate recs. - Urine culture negative anemia - multi factorial - iron is wnl - vitamin B12 greater then 1000 - folate wnl - continue to monitor Prophylaxis Protonix heparin Sq <Cheyanne Dowling - Last Filed: 10/10/17 13:49> Objective - Vital Signs/Intake and Output Vital Signs (last 24 hours): Temp Pulse Resp BP Pulse Ox 97.3 F L 67 14 107/69 100 10/10/17 08:00 10/10/17 11:48 10/10/17 11:48 10/10/17 11:49 10/10/17 11:48 Intake and Output: 10/10/17 10/10/17 06:59 18:59 Intake Total 1310 Output Total 500 Balance 810 - Medications Medications: Current Medications Acetaminophen (Tylenol 325mg Tab) 650 mg PO Q4H PRN PRN Reason: Fever >100.4 F Albuterol/Ipratropium (Duoneb 3 Mg/0.5 Mg (3 Ml) Ud) 3 ml IH [id number] [facility] Last Admin: 10/10/17 08:43 Dose: 3 ml Cholecalciferol (Vitamin D) 2,000 intlu PO DAILY [facility] Last Admin: 10/10/17 09:55 Dose: 2,000 intlu Heparin Sodium (Porcine) (Heparin) 5,000 units SC Q8 [facility] PRN Reason: Protocol Last Admin: 10/10/17 05:10 Dose: 5,000 units Hydralazine HCl (Apresoline) 10 mg IVP Q8H PRN PRN Reason: Systolic Blood Pressure Last Admin: 10/10/17 11:15 Dose: 10 mg Ceftriaxone Sodium (Rocephin 1 Gram Ivpb) 1 gm in 100 mls @ 100 mls/hr IVPB DAILY [facility] PRN Reason: Protocol Last Admin: 10/10/17 09:55 Dose: 100 mls/hr Azithromycin (Zithromax 500mg In Ns) 500 mg in 250 mls @ 167 mls/hr IVPB DAILY [facility] PRN Reason: Protocol Last Admin: 10/10/17 09:58 Dose: 167 mls/hr Midazolam 100 mg/100ml in NS (Midazolam 100 Mg/100ml In Ns) 100 mg in 100 mls @ 1 mls/hr IV .Q24H PRN; Protocol; 1 MG/HR PRN Reason: Agitation Last Admin: 10/10/17 08:03 Dose: 1 mg/hr, 1 mls/hr Sodium Chloride (Sodium Chloride 0.45%) 1,000 mls @ 50 mls/hr IV .Q20H [facility] Last Admin: 10/10/17 11:21 Dose: 50 mls/hr Methylprednisolone (Solu-Medrol) 40 mg IVP Q12 [facility] Pantoprazole Sodium (Protonix Inj) 40 mg IVP DAILY [facility] Last Admin: 10/10/17 09:55 Dose: 40 mg - Labs Labs: 10/10/17 06:10 10/10/17 06:10 PT 10.7 SECONDS (9.4-12.5) 10/07/17 23:39 INR 0.94 (0.93-1.08) 10/07/17 23:39 APTT 34.5 Seconds (25.1-36.5) 10/07/17 23:39 Attending/Attestation - Attestation I have personally seen and examined this patient.: Yes I have fully participated in the care of the patient.: Yes I have reviewed all pertinent clinical information, including history, physical exam and plan: Yes Notes (Text): 10/10/17 13:47 77 year old female with past medical history of hypertension and asthma who presented with altered mental status and failure to thrive. She was found to have severe hypernatremia and AVERY. She also was intubated and admitted to the ICU. Continue with iv steroids and antibiotics as per dredge deckhand. Continue with weaning trials as per dredge deckhand. Continue with fluids as per nephrology. Sodium level has improved. Creatinine also has improved to 3.8 today; likely patient has underlying CKD. CT head showed 3 mm hyperdensity in the left temporal lobe. Neurology is following and ordered for MRI/MRA studies. Continue with iv steroids and antibiotics as per dredge deckhand. Cheyanne Dowling MD Hospitalist.
[2017-10-11] MEDS: Sodium Chloride 0.45% 1,000 ML IV SCH (06:43)
--- NOTE | 2017-10-11 07:26 | CP.PCM.PN ---
Subjective - Date & Time of Evaluation Date of Evaluation: 10/11/17 Time of Evaluation: 07:23 - Subjective Subjective: Ms. Sylvester was seen and examined at the bedside. She opens her eyes spontaneously. She remains on mechanical ventilator and midazolam dipr at 2 mg/ hr for sedation. She follows some commands such as lifting her bilateral upper arms, but easily gets agitated. She also remains on bilateral wrist restraints. She moves her lower extremities spontaneously and with bilateral SCD's. There was no untoward events overnight. Objective - Vital Signs/Intake and Output Vital Signs (last 24 hours): Temp Pulse Resp BP Pulse Ox 98.9 F 66 14 120/70 100 10/11/17 00:00 10/11/17 00:41 10/11/17 00:41 10/11/17 00:00 10/11/17 00:00 - Medications Medications: Current Medications Acetaminophen (Tylenol 325mg Tab) 650 mg PO Q4H PRN PRN Reason: Fever >100.4 F Albuterol/Ipratropium (Duoneb 3 Mg/0.5 Mg (3 Ml) Ud) 3 ml IH [id number] [facility] Last Admin: 10/10/17 23:50 Dose: 3 ml Cholecalciferol (Vitamin D) 2,000 intlu PO DAILY [facility] Last Admin: 10/10/17 09:55 Dose: 2,000 intlu Heparin Sodium (Porcine) (Heparin) 5,000 units SC Q8 [facility] PRN Reason: Protocol Last Admin: 10/11/17 06:44 Dose: 5,000 units Hydralazine HCl (Apresoline) 10 mg IVP Q8H PRN PRN Reason: Systolic Blood Pressure Last Admin: 10/10/17 11:15 Dose: 10 mg Ceftriaxone Sodium (Rocephin 1 Gram Ivpb) 1 gm in 100 mls @ 100 mls/hr IVPB DAILY [facility] PRN Reason: Protocol Last Admin: 10/10/17 09:55 Dose: 100 mls/hr Azithromycin (Zithromax 500mg In Ns) 500 mg in 250 mls @ 167 mls/hr IVPB DAILY [facility] PRN Reason: Protocol Last Admin: 10/10/17 09:58 Dose: 167 mls/hr Midazolam 100 mg/100ml in NS (Midazolam 100 Mg/100ml In Ns) 100 mg in 100 mls @ 1 mls/hr IV .Q24H PRN; Protocol; 1 MG/HR PRN Reason: Agitation Last Admin: 10/10/17 08:03 Dose: 1 mg/hr, 1 mls/hr Sodium Chloride (Sodium Chloride 0.45%) 1,000 mls @ 50 mls/hr IV .Q20H [facility] Last Admin: 10/11/17 06:43 Dose: 50 mls/hr Methylprednisolone (Solu-Medrol) 40 mg IVP Q12 [facility] Last Admin: 10/10/17 22:21 Dose: 40 mg Pantoprazole Sodium (Protonix Inj) 40 mg IVP DAILY [facility] Last Admin: 10/10/17 09:55 Dose: 40 mg - Labs Labs: 10/10/17 06:10 10/10/17 06:10 PT 10.7 SECONDS (9.4-12.5) 10/07/17 23:39 INR 0.94 (0.93-1.08) 10/07/17 23:39 APTT 34.5 Seconds (25.1-36.5) 10/07/17 23:39 - Constitutional Appears: No Acute Distress - Head Exam Head Exam: NORMAL INSPECTION - Neurological Exam Neurological Exam: Awake Neuro motor strength exam: Left Upper Extremity: 3, Right Upper Extremity: 3, Left Lower Extremity: 3, Right Lower Extremity: 3 Additional comments: Neurological unchanged from previous examination. Assessment and Plan (1) Abnormal CT scan, head Assessment & Plan: Case discussed with Dr. Matias, continue all current medical. Recommends MRI of the brain for evaluate brain pathology. Status: Acute (2) Toxic metabolic encephalopathy Assessment & Plan: Case discussed with Dr. Matias, continue all current medical regimen. Treat any abnormality of her electrolytes. Status: Acute
--- NOTE | 2017-10-11 08:10 | CP.PCM.PN ---
<Heidy Nathan - Last Filed: 10/11/17 14:19> Subjective - Date & Time of Evaluation Date of Evaluation: 10/11/17 Time of Evaluation: 09:00 - Subjective Subjective: PGY-2 progress note for hospitalist service Patient seen and examined at bedside. No acute distress. Per nurse no acute events over night. Patient is intubated and sedated, easily arousable Objective - Vital Signs/Intake and Output Vital Signs (last 24 hours): Temp Pulse Resp BP Pulse Ox 98.9 F 73 14 149/94 H 94 L 10/11/17 00:00 10/11/17 07:56 10/11/17 07:56 10/11/17 07:00 10/11/17 07:30 Intake and Output: 10/11/17 10/11/17 06:59 18:59 Intake Total 600 Output Total 650 Balance -50 - Medications Medications: Current Medications Acetaminophen (Tylenol 325mg Tab) 650 mg PO Q4H PRN PRN Reason: Fever >100.4 F Albuterol/Ipratropium (Duoneb 3 Mg/0.5 Mg (3 Ml) Ud) 3 ml IH [id number] [facility] Cholecalciferol (Vitamin D) 2,000 intlu PO DAILY [facility] Last Admin: 10/10/17 09:55 Dose: 2,000 intlu Heparin Sodium (Porcine) (Heparin) 5,000 units SC Q8 [facility] PRN Reason: Protocol Last Admin: 10/11/17 06:44 Dose: 5,000 units Hydralazine HCl (Apresoline) 10 mg IVP Q8H PRN PRN Reason: Systolic Blood Pressure Last Admin: 10/10/17 11:15 Dose: 10 mg Ceftriaxone Sodium (Rocephin 1 Gram Ivpb) 1 gm in 100 mls @ 100 mls/hr IVPB DAILY [facility] PRN Reason: Protocol Last Admin: 10/10/17 09:55 Dose: 100 mls/hr Azithromycin (Zithromax 500mg In Ns) 500 mg in 250 mls @ 167 mls/hr IVPB DAILY [facility] PRN Reason: Protocol Last Admin: 10/10/17 09:58 Dose: 167 mls/hr Midazolam 100 mg/100ml in NS (Midazolam 100 Mg/100ml In Ns) 100 mg in 100 mls @ 1 mls/hr IV .Q24H PRN; Protocol; 1 MG/HR PRN Reason: Agitation Last Admin: 10/10/17 08:03 Dose: 1 mg/hr, 1 mls/hr Sodium Chloride (Sodium Chloride 0.45%) 1,000 mls @ 50 mls/hr IV .Q20H [facility] Last Admin: 10/11/17 06:43 Dose: 50 mls/hr Methylprednisolone (Solu-Medrol) 40 mg IVP Q12 [facility] Last Admin: 10/10/17 22:21 Dose: 40 mg Pantoprazole Sodium (Protonix Inj) 40 mg IVP DAILY [facility] Last Admin: 10/10/17 09:55 Dose: 40 mg - Labs Labs: 10/10/17 06:10 10/10/17 06:10 PT 10.7 SECONDS (9.4-12.5) 10/07/17 23:39 INR 0.94 (0.93-1.08) 10/07/17 23:39 APTT 34.5 Seconds (25.1-36.5) 10/07/17 23:39 - Constitutional Appears: No Acute Distress - Head Exam Head Exam: ATRAUMATIC, NORMAL INSPECTION, NORMOCEPHALIC - Eye Exam Eye Exam: Normal appearance - ENT Exam Additional comments: intubated - Respiratory Exam Respiratory Exam: Clear to Ausculation Bilateral, NORMAL BREATHING PATTERN. absent: Rales, Rhonchi, Wheezes, Respiratory Distress - Cardiovascular Exam Cardiovascular Exam: REGULAR RHYTHM, +S1, +S2. absent: Tachycardia, Murmur - GI/Abdominal Exam GI & Abdominal Exam: Soft, Normal Bowel Sounds. absent: Distended, Tenderness - Extremities Exam Extremities Exam: Normal Inspection. absent: Pedal Edema - Neurological Exam Neurological Exam: Alert, Awake - Skin Skin Exam: Dry, Normal Color, Warm Assessment and Plan - Assessment and Plan (Free Text) Assessment: 77 year old female with PMH HTN, asthma, Parkinson's?, admitted for AMS, failure to thrive, AVERY, hypernatremia, found to be in respiratory distress s/p intubation for hypercapnic respiratory acidosis Plan: Hypercapneic Respiratory acidosis: - due to asthma - [facility] as [facility]. - daily cpap trial per ICU - monitor ABGs, - Duoneb 3ml inh q4 - Solumedrol 40mg ivp q8 - Rocephin 1gm ivpb qd (start 10/08, day 3) - Zithromax 500mg ivpb qd (start 10/08, day 3) AMS: - 2/2 hypernatremia vs worsening dementia vs delirium - patient is sedated - baseline patient is unable to complete ADLs and unable to ambulate by her self - CT head: 3mm round hyperdensity in the left temporal lobe inferiously and cannot exclude a tiny acute intraparenchymal bleed, repeat showed similar finding - MRI brain, MRA head and neck pending - TSH normal, RPR NonReactive, Vit B12 >1000, folate >20 - head of bed > 45 - echo showed EF 59, mild concentric left vent function - Blood cultures negative, urine cultures negative - neurology consulted AVERY - Likely secondary to dehydration vs ATN - FENa was 2.5, intrinsic - creatinine 3.5, improved from admission, unknown baseline possible underlying ckd - Nephro on board - Urine culture negative Hypernatremia - resolved - continue free water flushes - 1/2NS @50cc - ICU following - Nephro consulted will follow recommendation. Hyperkalemia: - improved 4.8 this am - Cont to monitor, correct as needed. 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 - multi factorial - iron is wnl - vitamin B12 greater then 1000 - folate wnl - continue to monitor Prophylaxis Protonix heparin Sq <Cheyanne Dowling - Last Filed: 10/11/17 16:03> Objective - Vital Signs/Intake and Output Vital Signs (last 24 hours): Temp Pulse Resp BP Pulse Ox 97.8 F 65 14 149/88 100 10/11/17 12:00 10/11/17 15:00 10/11/17 15:00 10/11/17 15:00 10/11/17 15:00 Intake and Output: 10/11/17 10/11/17 06:59 18:59 Intake Total 700 Output Total 650 Balance 50 - Medications Medications: Current Medications Acetaminophen (Tylenol 325mg Tab) 650 mg PO Q4H PRN PRN Reason: Fever >100.4 F Albuterol/Ipratropium (Duoneb 3 Mg/0.5 Mg (3 Ml) Ud) 3 ml IH [id number] [facility] Last Admin: 10/11/17 14:02 Dose: 3 ml Cholecalciferol (Vitamin D) 2,000 intlu PO DAILY [facility] Last Admin: 10/11/17 09:04 Dose: 2,000 intlu Famotidine (Pepcid) 20 mg IVP DAILY [facility] Last Admin: 10/11/17 12:11 Dose: Not Given Heparin Sodium (Porcine) (Heparin) 5,000 units SC Q8 [facility] PRN Reason: Protocol Last Admin: 10/11/17 13:55 Dose: 5,000 units Hydralazine HCl (Apresoline) 10 mg IVP Q8H PRN PRN Reason: Systolic Blood Pressure Last Admin: 10/10/17 11:15 Dose: 10 mg Ceftriaxone Sodium (Rocephin 1 Gram Ivpb) 1 gm in 100 mls @ 100 mls/hr IVPB DAILY [facility] PRN Reason: Protocol Last Admin: 10/11/17 09:04 Dose: 100 mls/hr Azithromycin (Zithromax 500mg In Ns) 500 mg in 250 mls @ 167 mls/hr IVPB DAILY [facility] PRN Reason: Protocol Last Admin: 10/11/17 09:08 Dose: 167 mls/hr Midazolam 100 mg/100ml in NS (Midazolam 100 Mg/100ml In Ns) 100 mg in 100 mls @ 1 mls/hr IV .Q24H PRN; Protocol; 1 MG/HR PRN Reason: Agitation Last Admin: 10/11/17 12:20 Dose: 2 mg/hr, 2 mls/hr Methylprednisolone (Solu-Medrol) 20 mg IVP Q12 [facility] Last Admin: 10/11/17 12:11 Dose: Not Given - Labs Labs: 10/11/17 08:00 10/11/17 08:00 PT 10.7 SECONDS (9.4-12.5) 10/07/17 23:39 INR 0.94 (0.93-1.08) 10/07/17 23:39 APTT 34.5 Seconds (25.1-36.5) 10/07/17 23:39 Attending/Attestation - Attestation I have personally seen and examined this patient.: Yes I have fully participated in the care of the patient.: Yes I have reviewed all pertinent clinical information, including history, physical exam and plan: Yes Notes (Text): 10/11/17 16:02 77 year old female with past medical history of hypertension and asthma who presented with altered mental status and failure to thrive. She was found to have severe hypernatremia and AVERY. She also was intubated and admitted to the ICU. She is on iv steroids and antibiotics. Continue with weaning trials as per director strategic account management. Her sodium has improved. Nephrology is following. Creatinine also has improved and stable; likely patient has underlying CKD. CT head showed 3 mm hyperdensity in the left temporal lobe. Neurology is following and ordered for MRI/MRA studies which is pending. Cheyanne Dowling MD Hospitalist.
[2017-10-11 08:22] LABS: BASO # 0.01 K/mm3 (0.0-2.0); BASO % 0.2 % (0.0-3.0); GRAN # 5.41 (1.4-6.5); GRAN % 86.4 % (50.0-68.0); HEMOGLOBIN 9.5 g/dL (12.0-16.0); LYMPH # 0.5 (1.2-3.4); LYMPH % 8.1 % (22.0-35.0); MEAN CELL VOLUME 91.8 fl (80.0-105.0); MEAN CORPUSCULAR HEMOGLOBIN 28.9 pg (25.0-35.0); MEAN CORPUSCULAR HGB CONC 31.5 g/dl (31.0-37.0); MEAN PLATELET VOLUME 11.4 fl (7.0-11.0); MONO # 0.3 (0.1-0.6); MONO % 5.3 % (1.0-6.0); RBC 3.29 10^6/uL (3.5-6.1); WHITE BLOOD COUNT 6.3 10^3/ul (4.5-11.0)
[2017-10-11] MEDS: Albuterol-Ipratrop 3 mg / 0.5 (3 ml) UD IH SCH ×5 (08:43→19:54)
[2017-10-11 09:03] LABS: ALBUMIN 3.2 g/dL (3.0-4.8); CALCIUM 8.5 mg/dL (8.4-10.5); MAGNESIUM 2.3 mg/dL (1.7-2.2)
[2017-10-11] MEDS: MethylPREDNISolone 40 mg Vial IVP SCH ×3 (09:04→21:18)
[2017-10-11] MEDS: cefTRIAXone 1 gm 1 GM/100 ML BAG IVPB SCH (09:04)
[2017-10-11] MEDS: Cholecalciferol 1,000 INTLU TAB PO SCH (09:04)
[2017-10-11] MEDS: Azithromycin 500MG/NS 250ml 500 MG/250 ML BAG IVPB SCH (09:08)
--- NOTE | 2017-10-11 09:12 | CARD ---
APPROVED REPORT EXAM: Two-dimensional and M-mode echocardiogram with Doppler and color Doppler. Other Information Quality : FairRhythm : INDICATION cardiomegaly 2D DIMENSIONS IVSd1.3 (0.7-1.1cm)LVDd3.4 (3.9-5.9cm) PWd1.3 (0.7-1.1cm)LVDs2.4 (2.5-4.0cm) FS (%) 30.5 %LVEF (%)59.0 (>50%) M-Mode DIMENSIONS Left Atrium (MM)1.90 (2.5-4.0cm)Aortic Root3.50 (2.2-3.7cm) Aortic Cusp Exc.1.50 (1.5-2.0cm) Aortic Valve AoV Peak Bclmkhto437.0cm/Neymar Peak GR.9mmHg Mitral Valve MV E Hvbvjmzn11.0cm/sMV A Tunlvnrn659.0cm/sE/A ratio0.6 TDI Lateral E' Peak V3.70cm/sMedial E' Peak V4.29cm/sE/Lateral E'20.3 E/Medial E'17.5 Tricuspid Valve TR Peak [id number]/sRAP [id number] Peak Gr.22mmHg [id number] LEFT VENTRICLE The left ventricle is normal size. There is mild concentric left ventricular hypertrophy. The left ventricular function is normal. The left ventricular ejection fraction is within the normal range. There is normal LV segmental wall motion. RIGHT VENTRICLE The right ventricle is normal size. AORTIC VALVE The aortic valve is mildly to moderately calcified. MITRAL VALVE The mitral valve is normal in structure. TRICUSPID VALVE The tricuspid valve is normal in structure. There is trace tricuspid regurgitation. GREAT VESSELS The aortic root is normal in size. PERICARDIAL EFFUSION There is no pericardial effusion. <Conclusion> The left ventricle is normal size. There is mild concentric left ventricular hypertrophy. The left ventricular function is normal. The left ventricular ejection fraction is within the normal range. The aortic valve is mildly to moderately calcified. Aortic sclerosis.
--- NOTE | 2017-10-11 10:27 | CP.PCM.PN ---
Subjective - Date & Time of Evaluation Date of Evaluation: 10/11/17 Time of Evaluation: 07:15 - Subjective Subjective: Pt seen and examined, remains intubated, sedated, follows simple commands, agitated. Objective - Vital Signs/Intake and Output Vital Signs (last 24 hours): Temp Pulse Resp BP Pulse Ox 98.9 F 73 14 149/94 H 94 L 10/11/17 00:00 10/11/17 07:56 10/11/17 07:56 10/11/17 07:00 10/11/17 07:30 Intake and Output: 10/11/17 10/11/17 06:59 18:59 Intake Total 600 Output Total 650 Balance -50 - Medications Medications: Current Medications Acetaminophen (Tylenol 325mg Tab) 650 mg PO Q4H PRN PRN Reason: Fever >100.4 F Albuterol/Ipratropium (Duoneb 3 Mg/0.5 Mg (3 Ml) Ud) 3 ml IH [id number] [facility] Last Admin: 10/11/17 08:51 Dose: 3 ml Cholecalciferol (Vitamin D) 2,000 intlu PO DAILY [facility] Last Admin: 10/11/17 09:04 Dose: 2,000 intlu Famotidine (Pepcid) 20 mg IVP DAILY [facility] Heparin Sodium (Porcine) (Heparin) 5,000 units SC Q8 [facility] PRN Reason: Protocol Last Admin: 10/11/17 06:44 Dose: 5,000 units Hydralazine HCl (Apresoline) 10 mg IVP Q8H PRN PRN Reason: Systolic Blood Pressure Last Admin: 10/10/17 11:15 Dose: 10 mg Ceftriaxone Sodium (Rocephin 1 Gram Ivpb) 1 gm in 100 mls @ 100 mls/hr IVPB DAILY [facility] PRN Reason: Protocol Last Admin: 10/11/17 09:04 Dose: 100 mls/hr Azithromycin (Zithromax 500mg In Ns) 500 mg in 250 mls @ 167 mls/hr IVPB DAILY [facility] PRN Reason: Protocol Last Admin: 10/11/17 09:08 Dose: 167 mls/hr Midazolam 100 mg/100ml in NS (Midazolam 100 Mg/100ml In Ns) 100 mg in 100 mls @ 1 mls/hr IV .Q24H PRN; Protocol; 1 MG/HR PRN Reason: Agitation Last Admin: 10/10/17 08:03 Dose: 1 mg/hr, 1 mls/hr Methylprednisolone (Solu-Medrol) 20 mg IVP Q12 [facility] - Labs Labs: 10/11/17 08:00 10/11/17 08:00 PT 10.7 SECONDS (9.4-12.5) 10/07/17 23:39 INR 0.94 (0.93-1.08) 10/07/17 23:39 APTT 34.5 Seconds (25.1-36.5) 10/07/17 23:39 - Constitutional Appears: Non-toxic, No Acute Distress - Eye Exam Eye Exam: Normal appearance - ENT Exam ENT Exam: Mucous Membranes Moist - Respiratory Exam Respiratory Exam: Clear to Ausculation Bilateral, NORMAL BREATHING PATTERN - Cardiovascular Exam Cardiovascular Exam: REGULAR RHYTHM, +S1, +S2 - GI/Abdominal Exam GI & Abdominal Exam: Soft, Normal Bowel Sounds - Extremities Exam Extremities Exam: Normal Inspection - Neurological Exam Neurological Exam: Awake Assessment and Plan - Assessment and Plan (Free Text) Assessment: 77yo femalw a/w hypercapnic resp failure Hypercapnic Resp Failure COPD Hypernatremia Bradycardia, Sinus Recommend: - cont with vent support, low tidal vol ventilation, daily cpap trials - cont with Rocephin, Azithro - IV steroids, taper - FS control - DC 1/2NS, cont with free water flushes - ECHO follow up - monitor electrolytes - start feeds - GI ppx, PPI - DVT pp, HSQ - Prognosis poor
--- NOTE | 2017-10-11 11:29 | RAD ---
HISTORY: Intubated COMPARISON: Chest x-ray performed 10/10/17 TECHNIQUE: Chest, one view. FINDINGS: Endotracheal tube terminates approximately 3.4 cm above the daniela. Nasogastric tube extends expected location of the stomach. Left-sided PICC extends the expected location of the cavoatrial junction. LUNGS: Mild left basilar atelectasis. Please note that chest x-ray has limited sensitivity for the detection of pulmonary masses. PLEURA: Blunting of the left hemidiaphragm may reflect tiny effusion or pleural thickening. No definite pneumothorax. CARDIOVASCULAR: Cardiomegaly. Enlarged mediastinum re-identified possibly the result of ectatic uncoiled aorta. Alternatives including adenopathy are not excluded. OSSEOUS STRUCTURES: Osseous demineralization. Degenerative changes. VISUALIZED UPPER ABDOMEN: Unremarkable. OTHER FINDINGS: None. IMPRESSION: Support lines and tubes as above. Cardiomegaly. Enlarged mediastinum re-identified possibly the result of an ectatic uncoiled aorta. Alternatives including adenopathy are not excluded. Mild left basilar atelectasis. Blunting of the left hemidiaphragm may reflect tiny effusion or pleural thickening.
[2017-10-11] MEDS: Midazolam 100 mg/100ml in NS 100 MG/100 ML SOL IV PRN (12:20)
--- NOTE | 2017-10-11 15:17 | CP.PCM.PN ---
Subjective - Date & Time of Evaluation Date of Evaluation: 10/11/17 Time of Evaluation: 15:16 - Subjective Subjective: RENAL FOLLOWUP IMPRESSION: Acute Kidney Injury (N17.9) likely dehydration, pre--renal state and ATN Hypernatremia: improving HTN, possible pneumonia, COPD Anemia hypercapnic respi failure likely has underlying CKD ? stage (echogenic kidneys on sono) Plan No acute need for renal replacement therapy at this time. Cr mildly improved today B/l Cr unknown - ? b/l. Hold 1/2 ns and continue free water flush continue tube feeds SPEP/DEBBIE/Rector/lambda and vit D/PTH sent. urine studies as ordered, anemia work up cont to monitor h and h discussed w/ ICU team Subjective: no acute events, intubated and sedated Physical Examination: General Appearance: elderly appearing female Vitals reviewed and noted as below Head; Atraumatic, normocephalic ENT: orally intubated EYES: Pupils are equal, round and reactive to light accommodation. Eye muscles and extraocular movement intact. Sclera is anicteric. Neck; supple no lymphadenopathy, no thyromegaly or bruit Lungs: increased respiratory rate/effort. Breath sounds bilateral decreased at bases she is mechanically ventilated Heart: Normal rate. s1s2 normal. No rub or gallop. Extremities: no edema. No varicose veins Neurological: Patient is sedated Skin: Warm and dry. Normal turgor. No rash. Palpitation: Normal elasticity for age Abdomen: Abdomen is soft. Bowel sounds +. There is no abdominal tenderness, no guarding/rigidity no organomegaly. Psych:intubated and sedated MSK: no joint tenderness or swelling. Digits and nails normal, no deformity : kidney or bladder not palpable Objective - Vital Signs/Intake and Output Vital Signs (last 24 hours): Temp Pulse Resp BP Pulse Ox 97.8 F 65 14 149/88 100 10/11/17 12:00 10/11/17 15:00 10/11/17 15:00 10/11/17 15:00 10/11/17 15:00 Intake and Output: 10/11/17 10/11/17 06:59 18:59 Intake Total 700 Output Total 650 Balance 50 - Medications Medications: Current Medications Acetaminophen (Tylenol 325mg Tab) 650 mg PO Q4H PRN PRN Reason: Fever >100.4 F Albuterol/Ipratropium (Duoneb 3 Mg/0.5 Mg (3 Ml) Ud) 3 ml IH [id number] [facility] Last Admin: 10/11/17 14:02 Dose: 3 ml Cholecalciferol (Vitamin D) 2,000 intlu PO DAILY [facility] Last Admin: 10/11/17 09:04 Dose: 2,000 intlu Famotidine (Pepcid) 20 mg IVP DAILY [facility] Last Admin: 10/11/17 12:11 Dose: Not Given Heparin Sodium (Porcine) (Heparin) 5,000 units SC Q8 DAVID PRN Reason: Protocol Last Admin: 10/11/17 13:55 Dose: 5,000 units Hydralazine HCl (Apresoline) 10 mg IVP Q8H PRN PRN Reason: Systolic Blood Pressure Last Admin: 10/10/17 11:15 Dose: 10 mg Ceftriaxone Sodium (Rocephin 1 Gram Ivpb) 1 gm in 100 mls @ 100 mls/hr IVPB DAILY [facility] PRN Reason: Protocol Last Admin: 10/11/17 09:04 Dose: 100 mls/hr Azithromycin (Zithromax 500mg In Ns) 500 mg in 250 mls @ 167 mls/hr IVPB DAILY [facility] PRN Reason: Protocol Last Admin: 10/11/17 09:08 Dose: 167 mls/hr Midazolam 100 mg/100ml in NS (Midazolam 100 Mg/100ml In Ns) 100 mg in 100 mls @ 1 mls/hr IV .Q24H PRN; Protocol; 1 MG/HR PRN Reason: Agitation Last Admin: 10/11/17 12:20 Dose: 2 mg/hr, 2 mls/hr Methylprednisolone (Solu-Medrol) 20 mg IVP Q12 [facility] Last Admin: 10/11/17 12:11 Dose: Not Given - Labs Labs: 10/11/17 08:00 10/11/17 08:00 PT 10.7 SECONDS (9.4-12.5) 10/07/17 23:39 INR 0.94 (0.93-1.08) 10/07/17 23:39 APTT 34.5 Seconds (25.1-36.5) 10/07/17 23:39
[2017-10-12] MEDS: Albuterol-Ipratrop 3 mg / 0.5 (3 ml) UD IH SCH ×4 (03:14→21:15)
[2017-10-12 06:38] LABS: ARTERIAL BLOOD GAS HCO3 21.9 mmol/L (21-28); ARTERIAL BLOOD GAS HEMOGLOBIN 9.1 g/dL (11.7-17.4); ARTERIAL BLOOD GAS O2 CAPACITY 12.7 mL/dl (16-24); ARTERIAL BLOOD GAS O2 CONTENT 12.6 ML/dl (15-23); ARTERIAL BLOOD GAS O2 SAT 99.3 % (95-98); ARTERIAL BLOOD GAS PCO2 37 mm/Hg (35-45); ARTERIAL BLOOD GAS PH 7.38 (7.35-7.45)
[2017-10-12 07:12] LABS: BASO # 0.01 K/mm3 (0.0-2.0); BASO % 0.1 % (0.0-3.0); GRAN # 6.83 (1.4-6.5); GRAN % 87.4 % (50.0-68.0); HEMOGLOBIN 9.5 g/dL (12.0-16.0); LYMPH # 0.4 (1.2-3.4); LYMPH % 4.9 % (22.0-35.0); MEAN CELL VOLUME 92.8 fl (80.0-105.0); MEAN CORPUSCULAR HEMOGLOBIN 28.5 pg (25.0-35.0); MEAN CORPUSCULAR HGB CONC 30.7 g/dl (31.0-37.0); MONO # 0.6 (0.1-0.6); MONO % 7.6 % (1.0-6.0); PLATELET COUNT 244 10^3/uL (120.0-450.0); RBC 3.33 10^6/uL (3.5-6.1); RED CELL DISTRIBUTION WIDTH 14.2 % (11.5-14.5); WHITE BLOOD COUNT 7.8 10^3/ul (4.5-11.0)
--- NOTE | 2017-10-12 07:23 | CP.PCM.PN ---
Subjective - Date & Time of Evaluation Date of Evaluation: 10/12/17 Time of Evaluation: 07:20 - Subjective Subjective: Ms. Sylvester was seen and examined at the bedside in ICU. She is alert, able to follow simple commands. She remains on a mechanical ventilator with GCS-12T. She does not have any continuous sedation.She has bilateral wrist restraints for patient safety. There was no untoward events overnight Objective - Vital Signs/Intake and Output Vital Signs (last 24 hours): Temp Pulse Resp BP Pulse Ox 98.8 F 82 23 138/82 100 10/11/17 23:40 10/11/17 23:40 10/11/17 23:40 10/11/17 23:00 10/11/17 23:40 - Medications Medications: Current Medications Acetaminophen (Tylenol 325mg Tab) 650 mg PO Q4H PRN PRN Reason: Fever >100.4 F Albuterol/Ipratropium (Duoneb 3 Mg/0.5 Mg (3 Ml) Ud) 3 ml IH [id number] [facility] Last Admin: 10/12/17 03:14 Dose: 3 ml Cholecalciferol (Vitamin D) 2,000 intlu PO DAILY [facility] Last Admin: 10/11/17 09:04 Dose: 2,000 intlu Famotidine (Pepcid) 20 mg IVP DAILY [facility] Last Admin: 10/11/17 12:11 Dose: Not Given Heparin Sodium (Porcine) (Heparin) 5,000 units SC Q8 [facility] PRN Reason: Protocol Last Admin: 10/12/17 05:17 Dose: 5,000 units Hydralazine HCl (Apresoline) 10 mg IVP Q8H PRN PRN Reason: Systolic Blood Pressure Last Admin: 10/10/17 11:15 Dose: 10 mg Ceftriaxone Sodium (Rocephin 1 Gram Ivpb) 1 gm in 100 mls @ 100 mls/hr IVPB DAILY [facility] PRN Reason: Protocol Last Admin: 10/11/17 09:04 Dose: 100 mls/hr Azithromycin (Zithromax 500mg In Ns) 500 mg in 250 mls @ 167 mls/hr IVPB DAILY [facility] PRN Reason: Protocol Last Admin: 10/11/17 09:08 Dose: 167 mls/hr Midazolam 100 mg/100ml in NS (Midazolam 100 Mg/100ml In Ns) 100 mg in 100 mls @ 1 mls/hr IV .Q24H PRN; Protocol; 1 MG/HR PRN Reason: Agitation Last Admin: 10/11/17 12:20 Dose: 2 mg/hr, 2 mls/hr Methylprednisolone (Solu-Medrol) 20 mg IVP Q12 [facility]ID Last Admin: 10/11/17 21:18 Dose: 20 mg - Labs Labs: 10/12/17 06:30 10/11/17 08:00 PT 10.7 SECONDS (9.4-12.5) 10/07/17 23:39 INR 0.94 (0.93-1.08) 10/07/17 23:39 APTT 34.5 Seconds (25.1-36.5) 10/07/17 23:39 - Constitutional Appears: No Acute Distress - Head Exam Head Exam: NORMAL INSPECTION - Neurological Exam Neurological Exam: Alert, Awake Neuro motor strength exam: Left Upper Extremity: 5, Right Upper Extremity: 5, Left Lower Extremity: 5, Right Lower Extremity: 5 Additional comments: Neurological improved from previous examination. She is able to follow simple commands. Assessment and Plan (1) Abnormal CT scan, head Assessment & Plan: Case discussed with Dr. Matias, continue all current medical regimen. Follow up MRI of the brain to evaluate further any brain pathology. Status: Acute (2) Toxic metabolic encephalopathy Assessment & Plan: Case discussed with Dr. Matias, continue all current medical regimen, treat any underlying electrolyte abnormality. Status: Acute
[2017-10-12 07:30] LABS: ALBUMIN 3.3 g/dL (3.0-4.8); CALCIUM 8.8 mg/dL (8.4-10.5); MAGNESIUM 2.5 mg/dL (1.7-2.2)
--- NOTE | 2017-10-12 07:49 | CP.CCUPN ---
<Khadijah Faith - Last Filed: 10/12/17 09:48> CCU Subjective - Physician Review Subjective (Free Text): 10/12/17 09:48 Patient seen and examined at bedside. No acute events overnight as per nursing. Intubated, sedated, on vent (40, 5, 14, 370). Patient is easily arousable; becomes agitated when off sedation. Tolerating feeds with minimal residual. Making good urine. ROS unobtainable. Critical Care Time Spent (in minutes): 45 CCU Objective - Vital Signs / Intake & Output Vital Signs (Last 4 hours): Vital Signs Temp Pulse Resp BP Pulse Ox 10/12/17 07:30 98.6 F 74 17 100 10/12/17 07:27 98.6 F 77 100 10/12/17 07:20 98.6 F 76 22 100 10/12/17 07:18 98.6 F 77 100 10/12/17 07:16 98.6 F 81 100 10/12/17 07:10 98.6 F 77 22 100 10/12/17 07:00 98.6 F 78 17 157/89 H 100 10/12/17 06:50 98.6 F 75 17 100 10/12/17 06:40 98.8 F 76 16 100 10/12/17 06:30 98.6 F 79 14 100 10/12/17 06:29 98.6 F 75 100 10/12/17 06:23 98.6 F 81 100 10/12/17 06:20 98.6 F 74 17 100 10/12/17 06:10 98.6 F 76 16 100 10/12/17 06:00 98.8 F 74 19 159/96 H 100 10/12/17 05:52 98.6 F 70 100 10/12/17 05:50 98.6 F 74 100 10/12/17 05:48 98.4 F 72 99 10/12/17 05:44 98.6 F 10/12/17 05:43 98.6 F 10/12/17 05:41 98.6 F 74 100 10/12/17 05:40 98.6 F 72 16 100 10/12/17 05:30 98.6 F 82 21 100 10/12/17 05:20 98.6 F 81 20 100 10/12/17 05:13 98.6 F 82 100 01/22/18 05:10 98.6 F 78 18 100 10/12/17 05:00 98.6 F 79 17 130/77 100 10/12/17 04:50 98.6 F 81 16 100 10/12/17 04:40 98.6 F 82 19 100 10/12/17 04:33 98.6 F 100 10/12/17 04:30 98.6 F 81 17 100 10/12/17 04:20 98.6 F 83 17 100 10/12/17 04:10 98.6 F 83 17 100 10/12/17 04:00 98.6 F 82 16 140/119 H 100 10/12/17 03:59 98.6 F 88 100 10/12/17 03:50 98.8 F 86 19 100 Intake and Output (Last 8hrs): Intake & Output 10/11/17 10/12/17 10/12/17 22:59 06:59 14:59 Intake Total 790 Output Total 1100 Balance -310 Intake: IV 450 Left Upper arm 450 Tube Feeding 340 Output: Urine 1100 Urethral (Basurto) 1100 Stool 0 - Physical Exam Head: Positive for: Atraumatic, Normocephalic Pupils: Positive for: PERRL Extroacular Muscles: Positive for: EOMI Conjunctiva: Positive for: Normal Mouth: Positive for: Moist Mucous Membranes, Other (ET tube in place) Respiratory/Chest: Positive for: Clear to Auscultation. Negative for: Wheezes, Rales, Rhonchi Cardiovascular: Positive for: Regular Rate and Rhythm, Normal S1, S2. Negative for: Murmurs Abdomen: Positive for: Normal Bowel Sounds. Negative for: Tenderness, Distention, Peritoneal Signs Upper Extremity: Positive for: Normal Inspection. Negative for: Cyanosis, Edema Lower Extremity: Positive for: Normal Inspection. Negative for: Edema Neurological: Positive for: CN II-XII Intact, Motor Func Grossly Intact Skin: Positive for: Warm, Dry, Normal Color. Negative for: Rashes Psychiatric: Positive for: Other (sedated) - Medications Active Medications: Active Medications Generic Name Dose Route Start Last Admin Trade Name Freq PRN Reason Stop Dose Admin Acetaminophen 650 mg 10/08/17 04:20 Tylenol 325mg Tab PO Q4H PRN Fever >100.4 F Albuterol/Ipratropium 3 ml 10/11/17 08:00 10/12/17 03:14 Duoneb 3 Mg/0.5 Mg (3 Ml) Ud IH 3 ml [id number] DAVID Administration Cholecalciferol 2,000 intlu 10/10/17 10:00 10/11/17 09:04 Vitamin D PO 2,000 intlu DAILY DAVID Administration Famotidine 20 mg 10/11/17 10:00 10/11/17 12:11 Pepcid IVP Not Given DAILY [facility] Heparin Sodium (Porcine) 5,000 units 10/08/17 14:00 10/12/17 05:17 Heparin SC 5,000 units Q8 DAVID Administration Protocol Hydralazine HCl 10 mg 10/08/17 13:55 10/10/17 11:15 Apresoline IVP 10 mg Q8H PRN Administration Systolic Blood Pressure Ceftriaxone Sodium 1 gm in 100 mls @ 100 mls/hr 10/08/17 13:00 10/11/17 09:04 Rocephin 1 Gram Ivpb IVPB 100 mls/hr DAILY DAVID Administration Protocol Azithromycin 500 mg in 250 mls @ 167 mls/hr 10/08/17 13:00 10/11/17 09:08 Zithromax 500mg In Ns IVPB 167 mls/hr DAILY DAVID Administration Protocol Midazolam 100 mg/100ml in NS 100 mg in 100 mls @ 1 mls/hr 10/10/17 07:29 12:20 Midazolam 100 Mg/100ml In Ns IV 2 mg/hr .Q24H PRN 2 mls/hr Agitation Administration Protocol 1 MG/HR Methylprednisolone 20 mg 10/11/17 09:44 10/11/17 21:18 Solu-Medrol IVP 20 mg Q12 DAVID Administration - Patient Studies Lab Studies: Lab Studies 10/12/17 10/12/17 10/12/17 Range/Units 06:30 06:30 06:30 WBC 7.8 D (4.5-11.0) 10^3/ul RBC 3.33 L (3.5-6.1) 10^6/uL Hgb 9.5 L (12.0-16.0) g/dL Hct 30.9 L (36.0-48.0) % MCV 92.8 (80.0-105.0) fl MCH 28.5 (25.0-35.0) pg MCHC 30.7 L (31.0-37.0) g/dl RDW 14.2 (11.5-14.5) % Plt Count 244 (120.0-450.0) 10^3/uL MPV 11.0 (7.0-11.0) fl Gran % 87.4 H (50.0-68.0) % Lymph % (Auto) 4.9 L (22.0-35.0) % Giles % (Auto) 7.6 H (1.0-6.0) % Eos % (Auto) 0.0 L (1.5-5.0) % Baso % (Auto) 0.1 (0.0-3.0) % Gran # 6.83 H (1.4-6.5) Lymph # 0.4 L (1.2-3.4) Giles # 0.6 (0.1-0.6) Eos # 0.0 (0.0-0.7) Baso # 0.01 (0.0-2.0) K/mm3 pCO2 37 (35-45) mm/Hg pO2 128.0 H (80-100) mm/Hg HCO3 21.9 (21-28) mmol/L ABG pH 7.38 (7.35-7.45) ABG Total CO2 23.0 (22-28) mmol.L ABG O2 Saturation 99.3 H (95-98) % ABG O2 Content 12.6 L (15-23) ML/dl ABG Base Excess -2.9 L (-2.0-3.0) mmol/L ABG Hemoglobin 9.1 L (11.7-17.4) g/dL ABG Carboxyhemoglobin 1.4 (0.5-1.5) % POC ABG HHb (Measured) 0.7 (0-5) % ABG Methemoglobin 1.0 (0.0-3.0) % ABG O2 Capacity 12.7 L (16-24) mL/dl Hgb O2 Saturation 96.8 (95.0-98.0) % FiO2 40.0 % Sodium 148 (132-148) mmol/L Potassium 4.6 (3.6-5.0) mmol/L Chloride 114 H (98-107) mmol/L Carbon Dioxide 23 (21-33) mmol/L Anion Gap 15 (10-20) BUN 96 H (7-21) mg/dL Creatinine 3.7 H (0.7-1.2) mg/dl Est GFR ( Amer) 14 Est GFR (Non-Af Amer) 12 Random Glucose 147 H (70-110) mg/dL Calcium 8.8 (8.4-10.5) mg/dL Phosphorus 6.3 H (2.5-4.5) mg/dL Magnesium 2.5 H (1.7-2.2) mg/dL Total Bilirubin 0.3 (0.2-1.3) mg/dL AST 58 H D (14-36) U/L ALT 36 (7-56) U/L Alkaline Phosphatase 67 (38-126) U/L Total Protein 6.6 (5.8-8.3) g/dL Albumin 3.3 (3.0-4.8) g/dL Globulin 3.3 gm/dL Albumin/Globulin Ratio 1.0 L (1.1-1.8) Tot [place]/Lambda Ratio (1.29-2.55) [place] Light Chain Anal (176-443) mg/dL Lambda Light Chain Anal (91-240) mg/dL 10/11/17 10/11/17 10/09/17 Range/Units 08:00 08:00 06:00 WBC 6.3 D (4.5-11.0) 10^3/ul RBC 3.29 L (3.5-6.1) 10^6/uL Hgb 9.5 L (12.0-16.0) g/dL Hct 30.2 L (36.0-48.0) % MCV 91.8 D (80.0-105.0) fl MCH 28.9 (25.0-35.0) pg MCHC 31.5 (31.0-37.0) g/dl RDW 14.0 (11.5-14.5) % Plt Count 227 (120.0-450.0) 10^3/uL MPV 11.4 H (7.0-11.0) fl Gran % 86.4 H (50.0-68.0) % Lymph % (Auto) 8.1 L (22.0-35.0) % Giles % (Auto) 5.3 (1.0-6.0) % Eos % (Auto) 0.0 L (1.5-5.0) % Baso % (Auto) 0.2 (0.0-3.0) % Gran # 5.41 (1.4-6.5) Lymph # 0.5 L (1.2-3.4) Giles # 0.3 (0.1-0.6) Eos # 0.0 (0.0-0.7) Baso # 0.01 (0.0-2.0) K/mm3 pCO2 (35-45) mm/Hg pO2 (80-100) mm/Hg HCO3 (21-28) mmol/L ABG pH (7.35-7.45) ABG Total CO2 (22-28) mmol.L ABG O2 Saturation (95-98) % ABG O2 Content (15-23) ML/dl ABG Base Excess (-2.0-3.0) mmol/L ABG Hemoglobin (11.7-17.4) g/dL ABG Carboxyhemoglobin (0.5-1.5) % POC ABG HHb (Measured) (0-5) % ABG Methemoglobin (0.0-3.0) % ABG O2 Capacity (16-24) mL/dl Hgb O2 Saturation (95.0-98.0) % FiO2 % Sodium 143 (132-148) mmol/L Potassium 4.6 (3.6-5.0) mmol/L Chloride 113 H (98-107) mmol/L Carbon Dioxide 20 L (21-33) mmol/L Anion Gap 15 (10-20) BUN 91 H (7-21) mg/dL Creatinine 3.5 H (0.7-1.2) mg/dl Est GFR ( Amer) 15 Est GFR (Non-Af Amer) 13 Random Glucose 115 H (70-110) mg/dL Calcium 8.5 (8.4-10.5) mg/dL Phosphorus 6.1 H (2.5-4.5) mg/dL Magnesium 2.3 H (1.7-2.2) mg/dL Total Bilirubin 0.4 (0.2-1.3) mg/dL AST 21 (14-36) U/L ALT 24 (7-56) U/L Alkaline Phosphatase 51 (38-126) U/L Total Protein 6.3 (5.8-8.3) g/dL Albumin 3.2 (3.0-4.8) g/dL Globulin 3.1 gm/dL Albumin/Globulin Ratio 1.0 L (1.1-1.8) Tot [place]/Lambda Ratio 2.01 (1.29-2.55) [place] Light Chain Anal 279 (176-443) mg/dL Lambda Light Chain Anal 139 (91-240) mg/dL Laboratory Results - last 24 hr 10/09/17 10/11/17 10/11/17 06:00 08:00 08:00 WBC 6.3 D RBC 3.29 L Hgb 9.5 L Hct 30.2 L MCV 91.8 D MCH 28.9 MCHC 31.5 RDW 14.0 Plt Count 227 MPV 11.4 H Gran % 86.4 H Lymph % (Auto) 8.1 L Giles % (Auto) 5.3 Eos % (Auto) 0.0 L Baso % (Auto) 0.2 Gran # 5.41 Lymph # 0.5 L Giles # 0.3 Eos # 0.0 Baso # 0.01 pCO2 pO2 HCO3 ABG pH ABG Total CO2 ABG O2 Saturation ABG O2 Content ABG Base Excess ABG Hemoglobin ABG Carboxyhemoglobin POC ABG HHb (Measured) ABG Methemoglobin ABG O2 Capacity Hgb O2 Saturation FiO2 Sodium 143 Potassium 4.6 Chloride 113 H Carbon Dioxide 20 L Anion Gap 15 BUN 91 H Creatinine 3.5 H Est GFR ( Amer) 15 Est GFR (Non-Af Amer) 13 Random Glucose 115 H Calcium 8.5 Phosphorus 6.1 H Magnesium 2.3 H Total Bilirubin 0.4 AST 21 ALT 24 Alkaline Phosphatase 51 Total Protein 6.3 Albumin 3.2 Globulin 3.1 Albumin/Globulin Ratio 1.0 L Tot [place]/Lambda Ratio 2.01 [place] Light Chain Anal 279 Lambda Light Chain Anal 139 10/12/17 10/12/17 10/12/17 06:30 06:30 06:30 WBC 7.8 D RBC 3.33 L Hgb 9.5 L Hct 30.9 L MCV 92.8 MCH 28.5 MCHC 30.7 L RDW 14.2 Plt Count 244 MPV 11.0 Gran % 87.4 H Lymph % (Auto) 4.9 L Giles % (Auto) 7.6 H Eos % (Auto) 0.0 L Baso % (Auto) 0.1 Gran # 6.83 H Lymph # 0.4 L Giles # 0.6 Eos # 0.0 Baso # 0.01 pCO2 37 pO2 128.0 H HCO3 21.9 ABG pH 7.38 ABG Total CO2 23.0 ABG O2 Saturation 99.3 H ABG O2 Content 12.6 L ABG Base Excess -2.9 L ABG Hemoglobin 9.1 L ABG Carboxyhemoglobin 1.4 POC ABG HHb (Measured) 0.7 ABG Methemoglobin 1.0 ABG O2 Capacity 12.7 L Hgb O2 Saturation 96.8 FiO2 40.0 Sodium 148 Potassium 4.6 Chloride 114 H Carbon Dioxide 23 Anion Gap 15 BUN 96 H Creatinine 3.7 H Est GFR ( Amer) 14 Est GFR (Non-Af Amer) 12 Random Glucose 147 H Calcium 8.8 Phosphorus 6.3 H Magnesium 2.5 H Total Bilirubin 0.3 AST 58 H D ALT 36 Alkaline Phosphatase 67 Total Protein 6.6 Albumin 3.3 Globulin 3.3 Albumin/Globulin Ratio 1.0 L Tot [place]/Lambda Ratio [place] Light Chain Anal Lambda Light Chain Anal Fingerstick Blood Sugar Results: 104 Review of Systems - Review of Systems Systems not reviewed;Unavailable: Intubated Assessment/Plan - Assessment and Plan (Free Text) Assessment: 77yo female PMHx HTN, asthma, questionable Parkinson's disease presented to ED with 3 day history of AMS. Patient is intubated and sedated on vent (40, 5, 14, 370). Plan: Neuro: -alert and agitated if not on sedation but patient is on Midazolam gtt -baseline patient is unable to complete ADLs and unable to ambulate by her self -CT head: 3mm round hyperdensity in the left temporal lobe inferiously and cannot exclude a tiny acute intraparenchymal bleed -head of bed > 45 -Dr. Matias on board Cardio: -hemodynamically stable -Hydralazine 10mg ivp q8 prn SBP > 160mmHg -keep MAP > 65 Pulm: -intubated on vent (40, 5, 14, 370) -monitor ABGs and CXR -Duoneb 3ml inh q4 -Solumedrol 20mg ivp q12 -Rocephin and Zithromax (start 10/08) GI: -no acute issues -tolerating feeds at 40cc/hr with minimal residuals Renal/Electrolytes: -hypernatremia resolved -Monitor Cr -Monitor Is and os -Basurto in place -Dr. Pinzon consulted Endo: -no acute issues -maintain euglycemia Heme: -no acute issues ID: -blood and urine culture: negative -procalcitonin: 0.53 -Influenza negative -Rocephin 1gm ivpb qd (start 10/08) -Zithromax 500mg ivpb qd (start 10/08) GI ppx: Pepcid 20mg ivp qd DVT ppx: Heparin 5000u sc q8; SCDs Diet: Feeds @ 40cc/hr minimal residuals Discussed with Dr. Jhoan Faith PGY2 <Fantasma Staples - Last Filed: 10/12/17 10:22> CCU Objective - Vital Signs / Intake & Output Vital Signs (Last 4 hours): Vital Signs Temp Pulse Resp BP Pulse Ox 10/12/17 07:30 98.6 F 74 17 100 10/12/17 07:27 98.6 F 77 100 10/12/17 07:20 98.6 F 76 22 100 10/12/17 07:18 98.6 F 77 100 10/12/17 07:16 98.6 F 81 100 10/12/17 07:10 98.6 F 77 22 100 10/12/17 07:00 98.6 F 78 17 157/89 H 100 10/12/17 06:50 98.6 F 75 17 100 10/12/17 06:40 98.8 F 76 16 100 10/12/17 06:30 98.6 F 79 14 100 10/12/17 06:29 98.6 F 75 100 10/12/17 06:23 98.6 F 81 100 Intake and Output (Last 8hrs): Intake & Output 10/11/17 10/12/17 10/12/17 22:59 06:59 14:59 Intake Total 790 10 Output Total 1100 Balance -310 10 Intake: IV 450 10 Left Upper arm 450 Tube Feeding 340 Output: Urine 1100 Urethral (Basurto) 1100 Stool 0 - Medications Active Medications: Active Medications Generic Name Dose Route Start Last Admin Trade Name Freq PRN Reason Stop Dose Admin Acetaminophen 650 mg 10/08/17 04:20 Tylenol 325mg Tab PO Q4H PRN Fever >100.4 F Albuterol/Ipratropium 3 ml 10/11/17 08:00 10/12/17 07:54 Duoneb 3 Mg/0.5 Mg (3 Ml) Ud IH 3 ml [id number] DAVID Administration Cholecalciferol 2,000 intlu 10/10/17 10:00 10/11/17 09:04 Vitamin D PO 2,000 intlu DAILY DAVID Administration Famotidine 20 mg 10/11/17 10:00 10/11/17 12:11 Pepcid IVP Not Given DAILY [facility] Heparin Sodium (Porcine) 5,000 units 10/08/17 14:00 10/12/17 05:17 Heparin SC 5,000 units Q8 DAVID Administration Protocol Hydralazine HCl 10 mg 10/08/17 13:55 10/10/17 11:15 Apresoline IVP 10 mg Q8H PRN Administration Systolic Blood Pressure Ceftriaxone Sodium 1 gm in 100 mls @ 100 mls/hr 10/08/17 13:00 10/11/17 09:04 Rocephin 1 Gram Ivpb IVPB 100 mls/hr DAILY DAVID Administration Protocol Azithromycin 500 mg in 250 mls @ 167 mls/hr 10/08/17 13:00 10/11/17 09:08 Zithromax 500mg In Ns IVPB 167 mls/hr DAILY DAVID Administration Protocol Midazolam 100 mg/100ml in NS 100 mg in 100 mls @ 1 mls/hr 10/10/17 07:29 09:00 Midazolam 100 Mg/100ml In Ns IV 2 mg/hr .Q24H PRN 2 mls/hr Agitation Titration Protocol 1 MG/HR Methylprednisolone 20 mg 10/11/17 09:44 10/11/17 21:18 Solu-Medrol IVP 20 mg Q12 DAVID Administration - Patient Studies Lab Studies: Lab Studies 10/12/17 10/12/17 10/12/17 Range/Units 06:30 06:30 06:30 WBC 7.8 D (4.5-11.0) 10^3/ul RBC 3.33 L (3.5-6.1) 10^6/uL Hgb 9.5 L (12.0-16.0) g/dL Hct 30.9 L (36.0-48.0) % MCV 92.8 (80.0-105.0) fl MCH 28.5 (25.0-35.0) pg MCHC 30.7 L (31.0-37.0) g/dl RDW 14.2 (11.5-14.5) % Plt Count 244 (120.0-450.0) 10^3/uL MPV 11.0 (7.0-11.0) fl Gran % 87.4 H (50.0-68.0) % Lymph % (Auto) 4.9 L (22.0-35.0) % Giles % (Auto) 7.6 H (1.0-6.0) % Eos % (Auto) 0.0 L (1.5-5.0) % Baso % (Auto) 0.1 (0.0-3.0) % Gran # 6.83 H (1.4-6.5) Lymph # 0.4 L (1.2-3.4) Giles # 0.6 (0.1-0.6) Eos # 0.0 (0.0-0.7) Baso # 0.01 (0.0-2.0) K/mm3 Neutrophils % (Manual) 93 H (50.0-70.0) % Band Neutrophils % 1 (0-2) % Lymphocytes % (Manual) 3 L (22.0-35.0) % Monocytes % (Manual) 3 (1.0-6.0) % Platelet Evaluation Normal (NORMAL) pCO2 37 (35-45) mm/Hg pO2 128.0 H (80-100) mm/Hg HCO3 21.9 (21-28) mmol/L ABG pH 7.38 (7.35-7.45) ABG Total CO2 23.0 (22-28) mmol.L ABG O2 Saturation 99.3 H (95-98) % ABG O2 Content 12.6 L (15-23) ML/dl ABG Base Excess -2.9 L (-2.0-3.0) mmol/L ABG Hemoglobin 9.1 L (11.7-17.4) g/dL ABG Carboxyhemoglobin 1.4 (0.5-1.5) % POC ABG HHb (Measured) 0.7 (0-5) % ABG Methemoglobin 1.0 (0.0-3.0) % ABG O2 Capacity 12.7 L (16-24) mL/dl Hgb O2 Saturation 96.8 (95.0-98.0) % FiO2 40.0 % Sodium 148 (132-148) mmol/L Potassium 4.6 (3.6-5.0) mmol/L Chloride 114 H (98-107) mmol/L Carbon Dioxide 23 (21-33) mmol/L Anion Gap 15 (10-20) BUN 96 H (7-21) mg/dL Creatinine 3.7 H (0.7-1.2) mg/dl Est GFR ( Amer) 14 Est GFR (Non-Af Amer) 12 Random Glucose 147 H (70-110) mg/dL Calcium 8.8 (8.4-10.5) mg/dL Phosphorus 6.3 H (2.5-4.5) mg/dL Magnesium 2.5 H (1.7-2.2) mg/dL Total Bilirubin 0.3 (0.2-1.3) mg/dL AST 58 H D (14-36) U/L ALT 36 (7-56) U/L Alkaline Phosphatase 67 (38-126) U/L Total Protein 6.6 (5.8-8.3) g/dL Albumin 3.3 (3.0-4.8) g/dL Globulin 3.3 gm/dL Albumin/Globulin Ratio 1.0 L (1.1-1.8) Tot [place]/Lambda Ratio (1.29-2.55) [place] Light Chain Anal (176-443) mg/dL Lambda Light Chain Anal (91-240) mg/dL 10/09/17 Range/Units 06:00 WBC (4.5-11.0) 10^3/ul RBC (3.5-6.1) 10^6/uL Hgb (12.0-16.0) g/dL Hct (36.0-48.0) % MCV (80.0-105.0) fl MCH (25.0-35.0) pg MCHC (31.0-37.0) g/dl RDW (11.5-14.5) % Plt Count (120.0-450.0) 10^3/uL MPV (7.0-11.0) fl Gran % (50.0-68.0) % Lymph % (Auto) (22.0-35.0) % Giles % (Auto) (1.0-6.0) % Eos % (Auto) (1.5-5.0) % Baso % (Auto) (0.0-3.0) % Gran # (1.4-6.5) Lymph # (1.2-3.4) Giles # (0.1-0.6) Eos # (0.0-0.7) Baso # (0.0-2.0) K/mm3 Neutrophils % (Manual) (50.0-70.0) % Band Neutrophils % (0-2) % Lymphocytes % (Manual) (22.0-35.0) % Monocytes % (Manual) (1.0-6.0) % Platelet Evaluation (NORMAL) pCO2 (35-45) mm/Hg pO2 (80-100) mm/Hg HCO3 (21-28) mmol/L ABG pH (7.35-7.45) ABG Total CO2 (22-28) mmol.L ABG O2 Saturation (95-98) % ABG O2 Content (15-23) ML/dl ABG Base Excess (-2.0-3.0) mmol/L ABG Hemoglobin (11.7-17.4) g/dL ABG Carboxyhemoglobin (0.5-1.5) % POC ABG HHb (Measured) (0-5) % ABG Methemoglobin (0.0-3.0) % ABG O2 Capacity (16-24) mL/dl Hgb O2 Saturation (95.0-98.0) % FiO2 % Sodium (132-148) mmol/L Potassium (3.6-5.0) mmol/L Chloride (98-107) mmol/L Carbon Dioxide (21-33) mmol/L Anion Gap (10-20) BUN (7-21) mg/dL Creatinine (0.7-1.2) mg/dl Est GFR ( Amer) Est GFR (Non-Af Amer) Random Glucose (70-110) mg/dL Calcium (8.4-10.5) mg/dL Phosphorus (2.5-4.5) mg/dL Magnesium (1.7-2.2) mg/dL Total Bilirubin (0.2-1.3) mg/dL AST (14-36) U/L ALT (7-56) U/L Alkaline Phosphatase (38-126) U/L Total Protein (5.8-8.3) g/dL Albumin (3.0-4.8) g/dL Globulin gm/dL Albumin/Globulin Ratio (1.1-1.8) Tot [place]/Lambda Ratio 2.01 (1.29-2.55) [place] Light Chain Anal 279 (176-443) mg/dL Lambda Light Chain Anal 139 (91-240) mg/dL Laboratory Results - last 24 hr 10/09/17 10/12/17 10/12/17 06:00 06:30 06:30 WBC 7.8 D RBC 3.33 L Hgb 9.5 L Hct 30.9 L MCV 92.8 MCH 28.5 MCHC 30.7 L RDW 14.2 Plt Count 244 MPV 11.0 Gran % 87.4 H Lymph % (Auto) 4.9 L Giles % (Auto) 7.6 H Eos % (Auto) 0.0 L Baso % (Auto) 0.1 Gran # 6.83 H Lymph # 0.4 L Giles # 0.6 Eos # 0.0 Baso # 0.01 Neutrophils % (Manual) 93 H Band Neutrophils % 1 Lymphocytes % (Manual) 3 L Monocytes % (Manual) 3 Platelet Evaluation Normal pCO2 pO2 HCO3 ABG pH ABG Total CO2 ABG O2 Saturation ABG O2 Content ABG Base Excess ABG Hemoglobin ABG Carboxyhemoglobin POC ABG HHb (Measured) ABG Methemoglobin ABG O2 Capacity Hgb O2 Saturation FiO2 Sodium 148 Potassium 4.6 Chloride 114 H Carbon Dioxide 23 Anion Gap 15 BUN 96 H Creatinine 3.7 H Est GFR ( Amer) 14 Est GFR (Non-Af Amer) 12 Random Glucose 147 H Calcium 8.8 Phosphorus 6.3 H Magnesium 2.5 H Total Bilirubin 0.3 AST 58 H D ALT 36 Alkaline Phosphatase 67 Total Protein 6.6 Albumin 3.3 Globulin 3.3 Albumin/Globulin Ratio 1.0 L Tot [place]/Lambda Ratio 2.01 [place] Light Chain Anal 279 Lambda Light Chain Anal 139 10/12/17 06:30 WBC RBC Hgb Hct MCV MCH MCHC RDW Plt Count MPV Gran % Lymph % (Auto) Giles % (Auto) Eos % (Auto) Baso % (Auto) Gran # Lymph # Giles # Eos # Baso # Neutrophils % (Manual) Band Neutrophils % Lymphocytes % (Manual) Monocytes % (Manual) Platelet Evaluation pCO2 37 pO2 128.0 H HCO3 21.9 ABG pH 7.38 ABG Total CO2 23.0 ABG O2 Saturation 99.3 H ABG O2 Content 12.6 L ABG Base Excess -2.9 L ABG Hemoglobin 9.1 L ABG Carboxyhemoglobin 1.4 POC ABG HHb (Measured) 0.7 ABG Methemoglobin 1.0 ABG O2 Capacity 12.7 L Hgb O2 Saturation 96.8 FiO2 40.0 Sodium Potassium Chloride Carbon Dioxide Anion Gap BUN Creatinine Est GFR ( Amer) Est GFR (Non-Af Amer) Random Glucose Calcium Phosphorus Magnesium Total Bilirubin AST ALT Alkaline Phosphatase Total Protein Albumin Globulin Albumin/Globulin Ratio Tot [place]/Lambda Ratio [place] Light Chain Anal Lambda Light Chain Anal Assessment/Plan - Assessment and Plan (Free Text) Plan: Pt seen and examined, with resident on rounds, agree with note with following additions/exceptions: 7yo female a/w hypercapnic resp failure, intubated. Hypercapnic Resp Failure, intubated COPD Hypernatremia, resolving Bradycardia, Sinus Recommend: - cont with vent support, low tidal vol ventilation, daily cpap trials - cont with Rocephin, Azithro - IV steroids, taper - FS control - cont with free water flushes - ECHO follow up - monitor electrolytes - feeds - GI ppx, PPI - DVT pp, HSQ - Prognosis poor - awaiting [facility] transfer
[2017-10-12 08:40] LABS: BAND 1 % (0-2); LYMPHOCYTE 3 % (22.0-35.0); MONOCYTE 3 % (1.0-6.0); NEUTROPHIL 93 % (50.0-70.0); PLATELET ESTIMATE NORMAL (NORMAL)
--- NOTE | 2017-10-12 09:48 | RAD ---
HISTORY: intubated COMPARISON: 10/11/2017 FINDINGS: LUNGS: No active pulmonary disease. PLEURA: No significant pleural effusion identified, no pneumothorax apparent. CARDIOVASCULAR: Mild cardiomegaly OSSEOUS STRUCTURES: No significant abnormalities. VISUALIZED UPPER ABDOMEN: Normal. OTHER FINDINGS: Endotracheal and nasogastric tubes in satisfactory position. IMPRESSION: No active disease.
[2017-10-12] MEDS: MethylPREDNISolone 40 mg Vial IVP SCH ×2 (10:32→21:49)
[2017-10-12] MEDS: Cholecalciferol 1,000 INTLU TAB PO SCH (10:35)
[2017-10-12] MEDS: cefTRIAXone 1 gm 1 GM/100 ML BAG IVPB SCH (10:36)
[2017-10-12] MEDS: Azithromycin 500MG/NS 250ml 500 MG/250 ML BAG IVPB SCH (10:37)
[2017-10-12] MEDS ORDERED: Darbepoetin Alfa 40 mcg/ml Inj SC ONE (11:00)
--- NOTE | 2017-10-12 14:26 | CP.PCM.PN ---
<Ember Magaña - Last Filed: 10/12/17 14:17> Subjective - Date & Time of Evaluation Date of Evaluation: 10/12/17 Time of Evaluation: 14:18 - Subjective Subjective: Ember Magaña, PGY1, Medicine Progress note for Dr Langley: Patient seen and examined at bedside. No acute distress. No acute events overnight. Patient remains intubated, but easily arousable, follows simple commands. Objective - Vital Signs/Intake and Output Vital Signs (last 24 hours): Temp Pulse Resp BP Pulse Ox 98.6 F 77 17 174/101 H 100 10/12/17 07:30 10/12/17 10:39 10/12/17 07:30 10/12/17 10:39 10/12/17 07:30 Intake and Output: 10/12/17 10/12/17 06:59 18:59 Intake Total 10 Balance 10 - Medications Medications: Current Medications Acetaminophen (Tylenol 325mg Tab) 650 mg PO Q4H PRN PRN Reason: Fever >100.4 F Albuterol/Ipratropium (Duoneb 3 Mg/0.5 Mg (3 Ml) Ud) 3 ml IH [id number] [facility] Last Admin: 10/12/17 07:54 Dose: 3 ml Amlodipine Besylate (Norvasc) 5 mg PO DAILY [facility] Calcium Acetate (Phoslo) 667 mg PO WM [facility] Cholecalciferol (Vitamin D) 2,000 intlu PO DAILY [facility] Last Admin: 10/12/17 10:35 Dose: 2,000 intlu Famotidine (Pepcid) 20 mg IVP DAILY [facility] Last Admin: 10/12/17 10:33 Dose: 20 mg Ferrous Gluconate (Fergon) 324 mg PO TID [facility] Heparin Sodium (Porcine) (Heparin) 5,000 units SC Q8 DAVID PRN Reason: Protocol Last Admin: 10/12/17 05:17 Dose: 5,000 units Hydralazine HCl (Apresoline) 10 mg IVP Q8H PRN PRN Reason: Systolic Blood Pressure Last Admin: 10/12/17 10:39 Dose: 10 mg Ceftriaxone Sodium (Rocephin 1 Gram Ivpb) 1 gm in 100 mls @ 100 mls/hr IVPB DAILY [facility] PRN Reason: Protocol Last Admin: 10/12/17 10:36 Dose: 100 mls/hr Azithromycin (Zithromax 500mg In Ns) 500 mg in 250 mls @ 167 mls/hr IVPB DAILY DAVID PRN Reason: Protocol Last Admin: 10/12/17 10:37 Dose: 167 mls/hr Midazolam 100 mg/100ml in NS (Midazolam 100 Mg/100ml In Ns) 100 mg in 100 mls @ 1 mls/hr IV .Q24H PRN; Protocol; 1 MG/HR PRN Reason: Agitation Last Titration: 10/12/17 09:00 Dose: 2 mg/hr, 2 mls/hr Methylprednisolone (Solu-Medrol) 20 mg IVP Q12 [facility] Last Admin: 10/12/17 10:32 Dose: 20 mg Vitamin B Complex/Vit C/Folic Acid (Nephro-Milagro) 1 tab PO 0800 [facility] - Labs Labs: 10/12/17 06:30 10/12/17 06:30 PT 10.7 SECONDS (9.4-12.5) 10/07/17 23:39 INR 0.94 (0.93-1.08) 10/07/17 23:39 APTT 34.5 Seconds (25.1-36.5) 10/07/17 23:39 - Additional Findings Additional findings: - Constitutional Appears: No Acute Distress - Head Exam Head Exam: ATRAUMATIC, NORMAL INSPECTION, NORMOCEPHALIC - Eye Exam Eye Exam: Normal appearance - ENT Exam Additional comments: intubated - Respiratory Exam Respiratory Exam: Clear to Ausculation Bilateral, NORMAL BREATHING PATTERN. absent: Rales, Rhonchi, Wheezes, Respiratory Distress - Cardiovascular Exam Cardiovascular Exam: REGULAR RHYTHM, +S1, +S2. absent: Tachycardia, Murmur - GI/Abdominal Exam GI & Abdominal Exam: Soft, Normal Bowel Sounds. absent: Distended, Tenderness - Extremities Exam Extremities Exam: Normal Inspection. absent: Pedal Edema - Neurological Exam Neurological Exam: Alert, Awake - Skin Skin Exam: Dry, Normal Color, Warm Assessment and Plan - Assessment and Plan (Free Text) Assessment: 77 year old female with PMH HTN, asthma, Parkinson's?, admitted for AMS, failure to thrive, AVERY, hypernatremia, found to be in respiratory distress s/p intubation for hypercapnic respiratory acidosis: Hypercapneic Respiratory acidosis: - due to asthma - Intubated, [facility] setting. Management as per ICU. - daily cpap trial per ICU - monitor ABGs - Duoneb 3ml inh q6 - Weaned Solumedrol 20mg ivp q12h - Rocephin 1gm ivpb qd (start 10/08, day 5) - Zithromax 500mg ivpb qd (start 10/08, day 5) AMS: - 2/2 hypernatremia vs worsening dementia vs delirium - baseline patient is unable to complete ADLs and unable to ambulate by her self , AOx2 - CT head: 3mm round hyperdensity in the left temporal lobe inferiously and cannot exclude a tiny acute intraparenchymal bleed, repeat showed similar finding - MRI brain, MRA head and neck pending - TSH normal, RPR NonReactive, Vit B12 >1000, folate >20 - head of bed > 45 - echo showed EF 59, mild concentric left vent function - Blood cultures negative, urine cultures negative - neurology consulted. Appreciate recs. AVERY - Likely secondary to dehydration vs ATN - FENa was 2.5, intrinsic - creatinine 3.7, improved since admission, unknown baseline possible underlying ckd - Nephro on board. appreciate recs. - Urine culture negative Hypernatremia - resolved - continue free water flushes - Hold 1/2NS - ICU following - Nephro consulted. appreciate recs. Hyperkalemia: - improved 4.6 this am - Cont to monitor, correct as needed. Failure to thrive: - Dehydrated, no oral intake over several days - Intubated - Tolerating tube feeds with minimal residual. anemia - multi factorial - iron is wnl - vitamin B12 greater then 1000 - folate wnl - Nephro on board. Appreciate recs. Erythropoetin, iron sulfate and Vitamin B complex recommended. - continue to monitor Prophylaxis Protonix heparin Sq Dipso: possibly LTAC? Discussed with Dr Langley. Ember Magaña, PGY1 <Kathy Langley - Last Filed: 10/12/17 16:04> Objective - Vital Signs/Intake and Output Vital Signs (last 24 hours): Temp Pulse Resp BP Pulse Ox 98.8 F 69 17 131/82 100 10/12/17 14:49 10/12/17 15:24 10/12/17 14:49 10/12/17 15:24 10/12/17 07:30 Intake and Output: 01/22/18 01/22/18 06:59 18:59 Intake Total 10 Balance 10 - Medications Medications: Current Medications Acetaminophen (Tylenol 325mg Tab) 650 mg PO Q4H PRN PRN Reason: Fever >100.4 F Albuterol/Ipratropium (Duoneb 3 Mg/0.5 Mg (3 Ml) Ud) 3 ml IH [id number] [facility] Last Admin: 10/12/17 14:28 Dose: 3 ml Amlodipine Besylate (Norvasc) 5 mg PO DAILY [facility] Last Admin: 10/12/17 15:24 Dose: 5 mg Calcium Acetate (Phoslo) 667 mg PO WM [facility] Last Admin: 10/12/17 12:00 Dose: 667 mg Cholecalciferol (Vitamin D) 2,000 intlu PO DAILY [facility] Last Admin: 10/12/17 10:35 Dose: 2,000 intlu Famotidine (Pepcid) 20 mg IVP DAILY [facility] Last Admin: 10/12/17 10:33 Dose: 20 mg Ferrous Gluconate (Fergon) 324 mg PO TID [facility] Last Admin: 10/12/17 15:23 Dose: 324 mg Heparin Sodium (Porcine) (Heparin) 5,000 units SC Q8 DAVID PRN Reason: Protocol Last Admin: 10/12/17 15:28 Dose: 5,000 units Hydralazine HCl (Apresoline) 10 mg IVP Q8H PRN PRN Reason: Systolic Blood Pressure Last Admin: 10/12/17 10:39 Dose: 10 mg Ceftriaxone Sodium (Rocephin 1 Gram Ivpb) 1 gm in 100 mls @ 100 mls/hr IVPB DAILY [facility] PRN Reason: Protocol Last Admin: 10/12/17 10:36 Dose: 100 mls/hr Azithromycin (Zithromax 500mg In Ns) 500 mg in 250 mls @ 167 mls/hr IVPB DAILY [facility] PRN Reason: Protocol Last Admin: 10/12/17 10:37 Dose: 167 mls/hr Midazolam 100 mg/100ml in NS (Midazolam 100 Mg/100ml In Ns) 100 mg in 100 mls @ 1 mls/hr IV .Q24H PRN; Protocol; 1 MG/HR PRN Reason: Agitation Last Titration: 10/12/17 09:00 Dose: 2 mg/hr, 2 mls/hr Methylprednisolone (Solu-Medrol) 20 mg IVP Q12 [facility] Last Admin: 10/12/17 10:32 Dose: 20 mg Vitamin B Complex/Vit C/Folic Acid (Nephro-Milagro) 1 tab PO 0800 [facility] - Labs Labs: 10/12/17 06:30 10/12/17 06:30 PT 10.7 SECONDS (9.4-12.5) 10/07/17 23:39 INR 0.94 (0.93-1.08) 10/07/17 23:39 APTT 34.5 Seconds (25.1-36.5) 10/07/17 23:39 Attending/Attestation - Attestation I have personally seen and examined this patient.: Yes I have fully participated in the care of the patient.: Yes I have reviewed all pertinent clinical information, including history, physical exam and plan: Yes Notes (Text): 10/12/17 15:59 Patient was seen and examined with medical grade shoemaker. 77 year old female with past medical history of hypertension and asthma /COPD was admitted with altered mental status and failure to thrive. She was found to have severe hypernatremia and renal failure. She also was intubated for hypercapnic Resp Failure and was admitted to the ICU.She is on iv steroids and antibiotics. 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 Her sodium is 148, on free water. Nephrology is following. Creatinine also has improved from 4.9 to 3.7 and is stable; likely patient has underlying stage IV CKD. CT head showed 3 mm hyperdensity in the left temporal lobe. Neurology is following and ordered for MRI/MRA studies which is pending. Prognosis is guarded. 10/12/17 16:03 10/12/17 16:04
--- NOTE | 2017-10-12 16:40 | CP.PCM.PN ---
Subjective - Date & Time of Evaluation Date of Evaluation: 10/12/17 Time of Evaluation: 16:37 - Subjective Subjective: Follow up Nephrology Consultation: Assessment: critical Acute Kidney Injury (N17.9) likely dehydration, pre--renal state and ATN Hypernatremia: improved HTN, possible pneumonia, COPD Anemia hypercapnic respi failure likely has underlying CKD ? stage (echogenic kidneys on sono) Plan No acute need for renal replacement therapy at this time. Hypertension control with meds as ordered. Patient not on ACEI/ARB due to AVERY. started on norvasc 5 mg/day Monitor Input/Output, daily weights and renal function with basic metabolic panel continue with free water supplements started oral iron, MVI, calcitriol q 2 day and dose of aransep 10/12/17 Dose meds/antibiotics for reduced GFR. Avoid fleets enema/magnesium based laxatives. Avoid nephrotoxins/NSAIDs/ iodinated contrast (unless needed emergently) Glycemic control Further work up/management as per primary team pt being planned for d/c to LTAC. Thanks for allowing me to participate in care of your patient. Will follow patient with you. Please call if any Qs. d/w team Dr Hammad Feldman Office: [phone] Chief Complaint; Unable Source of Info: medical chart review HPI: Pt is a 77 y/o F with hx of hypertension, asthma, parkinson disease came with AMS, decreased oral intake, CO2 retention AVERY and hypernatremia hence renal consulted. pt unable to provide any hx No known recent iodinated contrast exposure. No obvious episodes of low BP. ROS: unable Physical Examination: General Appearance: elderly appearing female Vitals reviewed and noted as below Head; Atraumatic, normocephalic ENT: orally intubated EYES: Pupils are equal, round and reactive to light accommodation. Eye muscles and extraocular movement intact. Sclera is anicteric. Neck; supple no lymphadenopathy, no thyromegaly or bruit Lungs: increased respiratory rate/effort. Breath sounds bilateral decreased at bases she is mechanically ventilated Heart: Normal rate. s1s2 normal. No rub or gallop. Extremities: no edema. No varicose veins Neurological: Patient is awake follows commands Skin: Warm and dry. Normal turgor. No rash. Palpitation: Normal elasticity for age Abdomen: Abdomen is soft. Bowel sounds +. There is no abdominal tenderness, no guarding/rigidity no organomegaly. has myoclonus jerks Psych:unable MSK: no joint tenderness or swelling. Digits and nails normal, no deformity : kidney or bladder not palpable Labs/imaging/EKG reviewed. Past medical history, past surgical history, family history, social history, allergy reviewed and noted as below family hx: unable to obtain renal sono; echogenic kidneys Objective - Vital Signs/Intake and Output Vital Signs (last 24 hours): Temp Pulse Resp BP Pulse Ox 98.8 F 69 17 131/82 100 10/12/17 14:49 10/12/17 15:24 10/12/17 14:49 10/12/17 15:24 10/12/17 07:30 Intake and Output: 10/12/17 10/12/17 06:59 18:59 Intake Total 10 Balance 10 - Medications Medications: Current Medications Acetaminophen (Tylenol 325mg Tab) 650 mg PO Q4H PRN PRN Reason: Fever >100.4 F Albuterol/Ipratropium (Duoneb 3 Mg/0.5 Mg (3 Ml) Ud) 3 ml IH [id number] [facility] Last Admin: 10/12/17 14:28 Dose: 3 ml Amlodipine Besylate (Norvasc) 5 mg PO DAILY [facility] Last Admin: 10/12/17 15:24 Dose: 5 mg Calcium Acetate (Phoslo) 667 mg PO WM [facility] Last Admin: 10/12/17 12:00 Dose: 667 mg Cholecalciferol (Vitamin D) 2,000 intlu PO DAILY [facility] Last Admin: 10/12/17 10:35 Dose: 2,000 intlu Famotidine (Pepcid) 20 mg IVP DAILY [facility] Last Admin: 10/12/17 10:33 Dose: 20 mg Ferrous Gluconate (Fergon) 324 mg PO TID [facility] Last Admin: 10/12/17 15:23 Dose: 324 mg Heparin Sodium (Porcine) (Heparin) 5,000 units SC Q8 DAVID PRN Reason: Protocol Last Admin: 10/12/17 15:28 Dose: 5,000 units Hydralazine HCl (Apresoline) 10 mg IVP Q8H PRN PRN Reason: Systolic Blood Pressure Last Admin: 10/12/17 10:39 Dose: 10 mg Ceftriaxone Sodium (Rocephin 1 Gram Ivpb) 1 gm in 100 mls @ 100 mls/hr IVPB DAILY DAVID PRN Reason: Protocol Last Admin: 10/12/17 10:36 Dose: 100 mls/hr Azithromycin (Zithromax 500mg In Ns) 500 mg in 250 mls @ 167 mls/hr IVPB DAILY DAVID PRN Reason: Protocol Last Admin: 10/12/17 10:37 Dose: 167 mls/hr Midazolam 100 mg/100ml in NS (Midazolam 100 Mg/100ml In Ns) 100 mg in 100 mls @ 1 mls/hr IV .Q24H PRN; Protocol; 1 MG/HR PRN Reason: Agitation Last Titration: 10/12/17 09:00 Dose: 2 mg/hr, 2 mls/hr Methylprednisolone (Solu-Medrol) 20 mg IVP Q12 [facility] Last Admin: 10/12/17 10:32 Dose: 20 mg Vitamin B Complex/Vit C/Folic Acid (Nephro-Milagro) 1 tab PO 0800 [facility] - Labs Labs: 10/12/17 06:30 10/12/17 06:30 PT 10.7 SECONDS (9.4-12.5) 10/07/17 23:39 INR 0.94 (0.93-1.08) 10/07/17 23:39 APTT 34.5 Seconds (25.1-36.5) 10/07/17 23:39
[2017-10-13] MEDS: Albuterol-Ipratrop 3 mg / 0.5 (3 ml) UD IH SCH ×4 (03:15→19:06)
[2017-10-13 04:32] LABS: ALBUMIN (PEP) 3.4 g/dL (3.8-4.8); ALPHA-1-GLOBULIN (PEP) 0.5 g/dL (0.2-0.3)
--- NOTE | 2017-10-13 06:58 | CP.CCUPN ---
<Khadijah Faith - Last Filed: 10/13/17 09:51> CCU Subjective - Physician Review Subjective (Free Text): 10/13/17 09:51 Patient seen and examined at bedside. No acute events overnight as per nursing. Intubated, sedated, on vent (40, 5, 14, 370). Will attempt to take patient off sedation and do pressure support trial. Patient is easily arousable. Tolerating feeds with minimal residual. Making good urine. Complete ROS unobtainable. Critical Care Time Spent (in minutes): 45 CCU Objective - Vital Signs / Intake & Output Vital Signs (Last 4 hours): Vital Signs Temp Pulse Resp BP Pulse Ox 10/13/17 06:20 97.3 F L 69 15 100 10/13/17 06:16 97.3 F L 68 100 10/13/17 06:10 97.3 F L 72 18 100 10/13/17 06:02 97.3 F L 74 23 10/13/17 06:00 72 16 127/82 10/13/17 05:59 97.3 F L 72 14 10/13/17 05:58 97.3 F L 74 16 10/13/17 05:57 97.3 F L 72 16 10/13/17 05:56 97.3 F L 73 16 10/13/17 05:55 97.3 F L 75 17 10/13/17 05:54 97.3 F L 76 16 10/13/17 05:53 97.3 F L 76 16 10/13/17 05:52 97.3 F L 76 16 10/13/17 05:51 97.3 F L 76 17 10/13/17 05:50 97.3 F L 76 17 10/13/17 05:49 97.3 F L 77 18 10/13/17 05:48 97.3 F L 77 17 10/13/17 05:47 97.3 F L 79 15 10/13/17 05:46 97.3 F L 79 16 10/13/17 05:44 97.3 F L 79 17 10/13/17 05:41 97.2 F L 79 19 10/13/17 05:40 97.2 F L 79 42 H 10/13/17 05:38 97.2 F L 79 52 H 10/13/17 05:37 97.2 F L 78 10/13/17 05:36 97.2 F L 78 86 H 10/13/17 05:35 97.2 F L 78 16 10/13/17 05:34 97.2 F L 77 23 10/13/17 05:33 97.2 F L 77 21 10/13/17 05:32 97.2 F L 77 16 10/13/17 05:31 97.2 F L 76 20 10/13/17 05:30 97.2 F L 77 10/13/17 05:29 97.2 F L 76 20 10/13/17 05:28 97.2 F L 77 22 10/13/17 05:27 97.2 F L 77 20 10/13/17 05:26 97.2 F L 75 18 10/13/17 05:25 97.2 F L 87 10/13/17 05:24 97.2 F L 78 20 10/13/17 05:23 97.2 F L 77 22 10/13/17 05:22 97.2 F L 70 16 10/13/17 05:21 97.2 F L 70 14 10/13/17 05:20 97.2 F L 71 15 10/13/17 05:19 97.2 F L 61 61 H 10/13/17 05:18 97.0 F L 61 18 10/13/17 05:17 97.0 F L 62 24 L 10/13/17 05:16 97.3 F L 73 65 H 10/13/17 05:15 97.3 F L 61 14 10/13/17 05:14 97.3 F L 61 16 10/13/17 05:12 97.3 F L 10/13/17 05:11 97.3 F L 60 14 10/13/17 05:10 97.3 F L 59 L 14 100 10/13/17 05:00 58 L 15 129/71 10/13/17 04:00 97.5 F L 53 L 16 106/63 100 10/13/17 03:00 57 L 21 106/63 100 Intake and Output (Last 8hrs): Intake & Output 10/12/17 10/12/17 10/13/17 14:59 22:59 06:59 Intake Total 10 1230 1254 Output Total 500 750 Balance 10 730 504 Intake: IV 10 24 Left Upper arm 24 Tube Feeding 480 480 Other 750 750 Output: Urine 500 750 Urethral (Basurto) 500 750 Other: # Bowel Movements 0 1 - Physical Exam Head: Positive for: Atraumatic, Normocephalic Pupils: Positive for: PERRL Extroacular Muscles: Positive for: EOMI Conjunctiva: Positive for: Normal Mouth: Positive for: Moist Mucous Membranes, Other (ET tube in place) Neck: Negative for: Meningeal Signs Respiratory/Chest: Positive for: Clear to Auscultation. Negative for: Wheezes, Rales, Rhonchi Cardiovascular: Positive for: Regular Rate and Rhythm, Normal S1, S2. Negative for: Murmurs Abdomen: Positive for: Normal Bowel Sounds. Negative for: Tenderness, Distention, Peritoneal Signs Upper Extremity: Positive for: Normal Inspection. Negative for: Cyanosis, Edema Lower Extremity: Positive for: Normal Inspection. Negative for: Edema Neurological: Positive for: CN II-XII Intact, Motor Func Grossly Intact Skin: Positive for: Warm, Dry, Normal Color. Negative for: Rashes Psychiatric: Positive for: Alert, Other (sedated) - Medications Active Medications: Active Medications Generic Name Dose Route Start Last Admin Trade Name Freq PRN Reason Stop Dose Admin Acetaminophen 650 mg 10/08/17 04:20 Tylenol 325mg Tab PO Q4H PRN Fever >100.4 F Albuterol/Ipratropium 3 ml 10/11/17 08:00 10/13/17 03:15 Duoneb 3 Mg/0.5 Mg (3 Ml) Ud IH 3 ml [id number] DAVID Administration Amlodipine Besylate 5 mg 10/12/17 11:00 10/12/17 15:24 Norvasc PO 5 mg DAILY DAVID Administration Calcitriol 0.25 mcg 10/12/17 16:45 10/12/17 17:22 Rocaltrol PO 0.25 mcg Q2D DAVID Administration Calcium Acetate 667 mg 10/12/17 12:00 10/12/17 17:21 Phoslo PO 667 mg WM DAVID Administration Famotidine 20 mg 10/11/17 10:00 10/12/17 10:33 Pepcid IVP 20 mg DAILY DAVID Administration Ferrous Gluconate 324 mg 10/12/17 14:00 10/12/17 17:21 Fergon PO 324 mg TID DAVID Administration Heparin Sodium (Porcine) 5,000 units 10/08/17 14:00 10/13/17 05:59 Heparin SC 5,000 units Q8 DAVID Administration Protocol Hydralazine HCl 10 mg 10/08/17 13:55 10/12/17 10:39 Apresoline IVP 10 mg Q8H PRN Administration Systolic Blood Pressure Ceftriaxone Sodium 1 gm in 100 mls @ 100 mls/hr 10/08/17 13:00 10/12/17 10:36 Rocephin 1 Gram Ivpb IVPB 100 mls/hr DAILY DAVID Administration Protocol Azithromycin 500 mg in 250 mls @ 167 mls/hr 10/08/17 13:00 10/12/17 10:37 Zithromax 500mg In Ns IVPB 167 mls/hr DAILY DAVID Administration Protocol Midazolam 100 mg/100ml in NS 100 mg in 100 mls @ 1 mls/hr 10/10/17 07:29 09:00 Midazolam 100 Mg/100ml In Ns IV 2 mg/hr .Q24H PRN 2 mls/hr Agitation Titration Protocol 1 MG/HR Methylprednisolone 20 mg 10/11/17 09:44 10/12/17 21:49 Solu-Medrol IVP 20 mg Q12 DAVID Administration Vitamin B Complex/Vit C/Folic Acid 1 tab 10/13/17 08:00 Nephro-Milagro PO 0800 DAVID - Patient Studies Lab Studies: Lab Studies 10/12/17 10/12/17 10/12/17 Range/Units 06:30 06:30 06:30 WBC 7.8 D (4.5-11.0) 10^3/ul RBC 3.33 L (3.5-6.1) 10^6/uL Hgb 9.5 L (12.0-16.0) g/dL Hct 30.9 L (36.0-48.0) % MCV 92.8 (80.0-105.0) fl MCH 28.5 (25.0-35.0) pg MCHC 30.7 L (31.0-37.0) g/dl RDW 14.2 (11.5-14.5) % Plt Count 244 (120.0-450.0) 10^3/uL MPV 11.0 (7.0-11.0) fl Gran % 87.4 H (50.0-68.0) % Lymph % (Auto) 4.9 L (22.0-35.0) % Waller % (Auto) 7.6 H (1.0-6.0) % Eos % (Auto) 0.0 L (1.5-5.0) % Baso % (Auto) 0.1 (0.0-3.0) % Gran # 6.83 H (1.4-6.5) Lymph # 0.4 L (1.2-3.4) Waller # 0.6 (0.1-0.6) Eos # 0.0 (0.0-0.7) Baso # 0.01 (0.0-2.0) K/mm3 Neutrophils % (Manual) 93 H (50.0-70.0) % Band Neutrophils % 1 (0-2) % Lymphocytes % (Manual) 3 L (22.0-35.0) % Monocytes % (Manual) 3 (1.0-6.0) % Platelet Evaluation Normal (NORMAL) pCO2 37 (35-45) mm/Hg pO2 128.0 H (80-100) mm/Hg HCO3 21.9 (21-28) mmol/L ABG pH 7.38 (7.35-7.45) ABG Total CO2 23.0 (22-28) mmol.L ABG O2 Saturation 99.3 H (95-98) % ABG O2 Content 12.6 L (15-23) ML/dl ABG Base Excess -2.9 L (-2.0-3.0) mmol/L ABG Hemoglobin 9.1 L (11.7-17.4) g/dL ABG Carboxyhemoglobin 1.4 (0.5-1.5) % POC ABG HHb (Measured) 0.7 (0-5) % ABG Methemoglobin 1.0 (0.0-3.0) % ABG O2 Capacity 12.7 L (16-24) mL/dl Hgb O2 Saturation 96.8 (95.0-98.0) % FiO2 40.0 % Sodium 148 (132-148) mmol/L Potassium 4.6 (3.6-5.0) mmol/L Chloride 114 H (98-107) mmol/L Carbon Dioxide 23 (21-33) mmol/L Anion Gap 15 (10-20) BUN 96 H (7-21) mg/dL Creatinine 3.7 H (0.7-1.2) mg/dl Est GFR ( Amer) 14 Est GFR (Non-Af Amer) 12 Random Glucose 147 H (70-110) mg/dL Calcium 8.8 (8.4-10.5) mg/dL Phosphorus 6.3 H (2.5-4.5) mg/dL Magnesium 2.5 H (1.7-2.2) mg/dL Total Bilirubin 0.3 (0.2-1.3) mg/dL AST 58 H D (14-36) U/L ALT 36 (7-56) U/L Alkaline Phosphatase 67 (38-126) U/L Total Protein 6.6 (5.8-8.3) g/dL Albumin 3.3 (3.0-4.8) g/dL Albumin (PEP) (3.8-4.8) g/dL Globulin 3.3 gm/dL Albumin/Globulin Ratio 1.0 L (1.1-1.8) Ifkhu-4-Duwxilftb (0.2-0.3) g/dL Bbcao-3-Ybxowdgyr (0.5-0.9) g/dL Eqlp-6-Rqnaiujp (0.4-0.6) g/dL Enqs-2-Bvedstrg (0.2-0.5) g/dL Gamma Globulins (0.8-1.7) g/dL Abnorm Protein Band 1 Abnorm Protein Band 2 Abnorm Protein Band 3 Calcium (PTH Intact) (8.6-10.4) mg/dL PTH w/Ion &Tot Calcium (14-64) pg/mL DEBBIE & SPEP Interp Serum Immunofixation (Not Detected) 10/09/17 10/09/17 Range/Units 08:00 06:00 WBC (4.5-11.0) 10^3/ul RBC (3.5-6.1) 10^6/uL Hgb (12.0-16.0) g/dL Hct (36.0-48.0) % MCV (80.0-105.0) fl MCH (25.0-35.0) pg MCHC (31.0-37.0) g/dl RDW (11.5-14.5) % Plt Count (120.0-450.0) 10^3/uL MPV (7.0-11.0) fl Gran % (50.0-68.0) % Lymph % (Auto) (22.0-35.0) % Waller % (Auto) (1.0-6.0) % Eos % (Auto) (1.5-5.0) % Baso % (Auto) (0.0-3.0) % Gran # (1.4-6.5) Lymph # (1.2-3.4) Waller # (0.1-0.6) Eos # (0.0-0.7) Baso # (0.0-2.0) K/mm3 Neutrophils % (Manual) (50.0-70.0) % Band Neutrophils % (0-2) % Lymphocytes % (Manual) (22.0-35.0) % Monocytes % (Manual) (1.0-6.0) % Platelet Evaluation (NORMAL) pCO2 (35-45) mm/Hg pO2 (80-100) mm/Hg HCO3 (21-28) mmol/L ABG pH (7.35-7.45) ABG Total CO2 (22-28) mmol.L ABG O2 Saturation (95-98) % ABG O2 Content (15-23) ML/dl ABG Base Excess (-2.0-3.0) mmol/L ABG Hemoglobin (11.7-17.4) g/dL ABG Carboxyhemoglobin (0.5-1.5) % POC ABG HHb (Measured) (0-5) % ABG Methemoglobin (0.0-3.0) % ABG O2 Capacity (16-24) mL/dl Hgb O2 Saturation (95.0-98.0) % FiO2 % Sodium (132-148) mmol/L Potassium (3.6-5.0) mmol/L Chloride (98-107) mmol/L Carbon Dioxide (21-33) mmol/L Anion Gap (10-20) BUN (7-21) mg/dL Creatinine (0.7-1.2) mg/dl Est GFR ( Amer) Est GFR (Non-Af Amer) Random Glucose (70-110) mg/dL Calcium (8.4-10.5) mg/dL Phosphorus (2.5-4.5) mg/dL Magnesium (1.7-2.2) mg/dL Total Bilirubin (0.2-1.3) mg/dL AST (14-36) U/L ALT (7-56) U/L Alkaline Phosphatase (38-126) U/L Total Protein (5.8-8.3) g/dL Albumin (3.0-4.8) g/dL Albumin (PEP) 3.4 L (3.8-4.8) g/dL Globulin gm/dL Albumin/Globulin Ratio (1.1-1.8) Pouau-0-Ubzdsjjnb 0.5 H (0.2-0.3) g/dL Tkqyy-5-Vtywtedig 0.7 (0.5-0.9) g/dL Rupk-8-Lpbnelbx 0.4 (0.4-0.6) g/dL Yqpx-2-Txibygik 0.4 (0.2-0.5) g/dL Gamma Globulins 1.0 (0.8-1.7) g/dL Abnorm Protein Band 1 TEST NOT PERFORMED Abnorm Protein Band 2 TEST NOT PERFORMED Abnorm Protein Band 3 TEST NOT PERFORMED Calcium (PTH Intact) 8.8 (8.6-10.4) mg/dL PTH w/Ion &Tot Calcium 342 H (14-64) pg/mL DEBBIE & SPEP Interp See note Serum Immunofixation Not detected (Not Detected) Laboratory Results - last 24 hr 10/09/17 10/09/17 10/12/17 06:00 08:00 06:30 WBC 7.8 D RBC 3.33 L Hgb 9.5 L Hct 30.9 L MCV 92.8 MCH 28.5 MCHC 30.7 L RDW 14.2 Plt Count 244 MPV 11.0 Gran % 87.4 H Lymph % (Auto) 4.9 L Waller % (Auto) 7.6 H Eos % (Auto) 0.0 L Baso % (Auto) 0.1 Gran # 6.83 H Lymph # 0.4 L Waller # 0.6 Eos # 0.0 Baso # 0.01 Neutrophils % (Manual) 93 H Band Neutrophils % 1 Lymphocytes % (Manual) 3 L Monocytes % (Manual) 3 Platelet Evaluation Normal pCO2 pO2 HCO3 ABG pH ABG Total CO2 ABG O2 Saturation ABG O2 Content ABG Base Excess ABG Hemoglobin ABG Carboxyhemoglobin POC ABG HHb (Measured) ABG Methemoglobin ABG O2 Capacity Hgb O2 Saturation FiO2 Sodium Potassium Chloride Carbon Dioxide Anion Gap BUN Creatinine Est GFR ( Amer) Est GFR (Non-Af Amer) Random Glucose Calcium Phosphorus Magnesium Total Bilirubin AST ALT Alkaline Phosphatase Total Protein Albumin Albumin (PEP) 3.4 L Globulin Albumin/Globulin Ratio Wkwoa-3-Vunlwmlms 0.5 H Zbugu-5-Ozhzexxzn 0.7 Pqhl-6-Vsmlpwtd 0.4 Tref-9-Zwijiyfb 0.4 Gamma Globulins 1.0 Abnorm Protein Band 1 TEST NOT PERFORMED Abnorm Protein Band 2 TEST NOT PERFORMED Abnorm Protein Band 3 TEST NOT PERFORMED Calcium (PTH Intact) 8.8 PTH w/Ion &Tot Calcium 342 H DEBBIE & SPEP Interp See note Serum Immunofixation Not detected 10/12/17 10/12/17 06:30 06:30 WBC RBC Hgb Hct MCV MCH MCHC RDW Plt Count MPV Gran % Lymph % (Auto) Waller % (Auto) Eos % (Auto) Baso % (Auto) Gran # Lymph # Waller # Eos # Baso # Neutrophils % (Manual) Band Neutrophils % Lymphocytes % (Manual) Monocytes % (Manual) Platelet Evaluation pCO2 37 pO2 128.0 H HCO3 21.9 ABG pH 7.38 ABG Total CO2 23.0 ABG O2 Saturation 99.3 H ABG O2 Content 12.6 L ABG Base Excess -2.9 L ABG Hemoglobin 9.1 L ABG Carboxyhemoglobin 1.4 POC ABG HHb (Measured) 0.7 ABG Methemoglobin 1.0 ABG O2 Capacity 12.7 L Hgb O2 Saturation 96.8 FiO2 40.0 Sodium 148 Potassium 4.6 Chloride 114 H Carbon Dioxide 23 Anion Gap 15 BUN 96 H Creatinine 3.7 H Est GFR ( Amer) 14 Est GFR (Non-Af Amer) 12 Random Glucose 147 H Calcium 8.8 Phosphorus 6.3 H Magnesium 2.5 H Total Bilirubin 0.3 AST 58 H D ALT 36 Alkaline Phosphatase 67 Total Protein 6.6 Albumin 3.3 Albumin (PEP) Globulin 3.3 Albumin/Globulin Ratio 1.0 L Efbxb-3-Webnkscef Txwem-8-Xqkaysrsj Qxlc-2-Eblypryt Ndgx-3-Pmpkgkgd Gamma Globulins Abnorm Protein Band 1 Abnorm Protein Band 2 Abnorm Protein Band 3 Calcium (PTH Intact) PTH w/Ion &Tot Calcium DEBBIE & SPEP Interp Serum Immunofixation Fingerstick Blood Sugar Results: 104 Review of Systems - Review of Systems Systems not reviewed;Unavailable: Intubated Assessment/Plan - Assessment and Plan (Free Text) Assessment: 77yo female PMHx HTN, asthma, questionable Parkinson's disease presented to ED with 3 day history of AMS. Patient is intubated and sedated on vent (40, 5, 14, 370) Plan: Neuro: -alert and agitated if not on sedation but patient is on Midazolam gtt -baseline patient is unable to complete ADLs and unable to ambulate by her self -CT head: 3mm round hyperdensity in the left temporal lobe inferiously and cannot exclude a tiny acute intraparenchymal bleed -head of bed > 45 -Dr. Matias on board Cardio: -hemodynamically stable -Hydralazine 10mg ivp q8 prn SBP > 160mmHg -keep MAP > 65 Pulm: -intubated on vent (40, 5, 14, 370) -monitor ABGs and CXR -Duoneb 3ml inh q4 -Solumedrol 20mg ivp q12 -Rocephin and Zithromax (start 10/08) -will attempt pressure support trial this AM GI: -no acute issues -tolerating feeds at 40cc/hr with minimal residuals Renal/Electrolytes: -hypernatremia resolved -Monitor Cr -Monitor Is and os -Basurto in place -Dr. Pinzon consulted Endo: -no acute issues -maintain euglycemia Heme: -no acute issues ID: -blood and urine culture: negative -procalcitonin: 0.53 -Influenza negative -Rocephin 1gm ivpb qd (start 10/08) -Zithromax 500mg ivpb qd (start 10/08) GI ppx: Pepcid 20mg ivp qd DVT ppx: Heparin 5000u sc q8; SCDs Diet: Feeds @ 40cc/hr minimal residuals Dispo: pending transfer to LTAC Discussed with Dr. Jhoan Faith PGY2 <Fantasma Staples - Last Filed: 10/13/17 10:16> CCU Objective - Vital Signs / Intake & Output Vital Signs (Last 4 hours): Vital Signs Temp Pulse Resp BP Pulse Ox 10/13/17 09:51 79 128/87 10/13/17 09:00 98.4 F 65 14 128/87 100 10/13/17 08:50 98.4 F 65 14 99 10/13/17 08:40 98.4 F 67 14 100 10/13/17 08:30 98.2 F 66 14 100 10/13/17 08:20 98.2 F 71 14 93 L 10/13/17 08:10 98.1 F 86 22 100 10/13/17 08:02 98.1 F 77 100 10/13/17 08:00 98.2 F 73 16 143/86 99 10/13/17 07:59 98.2 F 73 100 10/13/17 07:50 98.1 F 73 99 10/13/17 07:40 98.1 F 73 100 10/13/17 07:30 97.9 F 73 16 100 10/13/17 07:20 97.9 F 73 16 100 10/13/17 07:12 97.7 F 72 100 10/13/17 07:10 97.7 F 74 18 100 10/13/17 07:00 97.7 F 75 17 141/87 99 10/13/17 06:50 97.7 F 78 17 99 10/13/17 06:40 97.5 F L 82 18 98 10/13/17 06:31 97.5 F L 76 100 10/13/17 06:30 97.5 F L 73 17 95 10/13/17 06:20 97.3 F L 69 15 100 10/13/17 06:16 97.3 F L 68 100 Intake and Output (Last 8hrs): Intake & Output 10/12/17 10/13/17 10/13/17 22:59 06:59 14:59 Intake Total 1230 1254 Output Total 500 750 Balance 730 504 Intake: IV 24 Left Upper arm 24 Tube Feeding 480 480 Other 750 750 Output: Urine 500 750 Urethral (Basurto) 500 750 Other: # Bowel Movements 0 1 - Medications Active Medications: Active Medications Generic Name Dose Route Start Last Admin Trade Name Freq PRN Reason Stop Dose Admin Acetaminophen 650 mg 10/08/17 04:20 Tylenol 325mg Tab PO Q4H PRN Fever >100.4 F Albuterol/Ipratropium 3 ml 10/11/17 08:00 10/13/17 08:06 Duoneb 3 Mg/0.5 Mg (3 Ml) Ud IH 3 ml [id number] DAVID Administration Amlodipine Besylate 5 mg 10/12/17 11:00 10/13/17 09:51 Norvasc PO 5 mg DAILY DAVID Administration Calcitriol 0.25 mcg 10/12/17 16:45 10/12/17 17:22 Rocaltrol PO 0.25 mcg Q2D DAVID Administration Calcium Acetate 667 mg 10/12/17 12:00 10/13/17 08:35 Phoslo PO 667 mg WM DAVID Administration Famotidine 20 mg 10/11/17 10:00 10/13/17 09:51 Pepcid IVP 20 mg DAILY DAVID Administration Ferrous Gluconate 324 mg 10/12/17 14:00 10/13/17 09:57 Fergon PO 324 mg TID DAVID Administration Heparin Sodium (Porcine) 5,000 units 10/08/17 14:00 10/13/17 05:59 Heparin SC 5,000 units Q8 DAVID Administration Protocol Hydralazine HCl 10 mg 10/08/17 13:55 10/12/17 10:39 Apresoline IVP 10 mg Q8H PRN Administration Systolic Blood Pressure Ceftriaxone Sodium 1 gm in 100 mls @ 100 mls/hr 10/08/17 13:00 10/13/17 09:51 Rocephin 1 Gram Ivpb IVPB 100 mls/hr DAILY DAVID Administration Protocol Azithromycin 500 mg in 250 mls @ 167 mls/hr 10/08/17 13:00 10/13/17 10:01 Zithromax 500mg In Ns IVPB 167 mls/hr DAILY DAVID Administration Protocol Midazolam 100 mg/100ml in NS 100 mg in 100 mls @ 1 mls/hr 10/10/17 07:29 09:00 Midazolam 100 Mg/100ml In Ns IV 2 mg/hr .Q24H PRN 2 mls/hr Agitation Titration Protocol 1 MG/HR Methylprednisolone 20 mg 10/11/17 09:44 10/13/17 09:51 Solu-Medrol IVP 20 mg Q12 DAVID Administration Vitamin B Complex/Vit C/Folic Acid 1 tab 10/13/17 08:00 10/13/17 08:34 Nephro-Milagro PO 1 tab 0800 [facility] Administration - Patient Studies Lab Studies: Lab Studies 10/13/17 10/13/17 10/13/17 Range/Units 07:00 06:00 06:00 WBC 7.3 (4.5-11.0) 10^3/ul RBC 3.24 L (3.5-6.1) 10^6/uL Hgb 9.3 L (12.0-16.0) g/dL Hct 30.3 L (36.0-48.0) % MCV 93.5 (80.0-105.0) fl MCH 28.7 (25.0-35.0) pg MCHC 30.7 L (31.0-37.0) g/dl RDW 14.0 (11.5-14.5) % Plt Count 260 (120.0-450.0) 10^3/uL MPV 11.4 H (7.0-11.0) fl Gran % 87.0 H (50.0-68.0) % Lymph % (Auto) 5.7 L (22.0-35.0) % Waller % (Auto) 7.2 H (1.0-6.0) % Eos % (Auto) 0.0 L (1.5-5.0) % Baso % (Auto) 0.1 (0.0-3.0) % Gran # 6.31 (1.4-6.5) Lymph # 0.4 L (1.2-3.4) Waller # 0.5 (0.1-0.6) Eos # 0.0 (0.0-0.7) Baso # 0.01 (0.0-2.0) K/mm3 pCO2 52 H (35-45) mm/Hg pO2 116.0 H (80-100) mm/Hg HCO3 23.9 (21-28) mmol/L ABG pH 7.27 L (7.35-7.45) ABG Total CO2 25.5 (22-28) mmol.L ABG O2 Saturation 99.6 H (95-98) % ABG O2 Content 13.7 L (15-23) ML/dl ABG Base Excess -3.2 L (-2.0-3.0) mmol/L ABG Hemoglobin 9.9 L (11.7-17.4) g/dL ABG Carboxyhemoglobin 1.4 (0.5-1.5) % POC ABG HHb (Measured) 0.4 (0-5) % ABG Methemoglobin 1.1 (0.0-3.0) % ABG O2 Capacity 13.8 L (16-24) mL/dl Hgb O2 Saturation 97.0 (95.0-98.0) % FiO2 40.0 % Sodium 144 (132-148) mmol/L Potassium 4.6 (3.6-5.0) mmol/L Chloride 110 H (98-107) mmol/L Carbon Dioxide 24 (21-33) mmol/L Anion Gap 14 (10-20) BUN 88 H (7-21) mg/dL Creatinine 3.2 H (0.7-1.2) mg/dl Est GFR ( Amer) 17 Est GFR (Non-Af Amer) 14 Random Glucose 149 H (70-110) mg/dL Calcium 8.9 (8.4-10.5) mg/dL Phosphorus 4.8 H (2.5-4.5) mg/dL Magnesium 2.4 H (1.7-2.2) mg/dL Total Bilirubin 0.2 (0.2-1.3) mg/dL AST 56 H (14-36) U/L ALT 53 (7-56) U/L Alkaline Phosphatase 81 (38-126) U/L Total Protein 6.1 (5.8-8.3) g/dL Albumin 3.1 (3.0-4.8) g/dL Albumin (PEP) (3.8-4.8) g/dL Globulin 2.9 gm/dL Albumin/Globulin Ratio 1.1 (1.1-1.8) Mqskh-3-Cogrrgqcg (0.2-0.3) g/dL Aozar-5-Bdjxazzuo (0.5-0.9) g/dL Sfnz-6-Lpejdgll (0.4-0.6) g/dL Yuos-6-Whtxbtxe (0.2-0.5) g/dL Gamma Globulins (0.8-1.7) g/dL Abnorm Protein Band 1 Abnorm Protein Band 2 Abnorm Protein Band 3 Calcium (PTH Intact) (8.6-10.4) mg/dL PTH w/Ion &Tot Calcium (14-64) pg/mL DEBBIE & SPEP Interp Serum Immunofixation (Not Detected) 10/09/17 10/09/17 Range/Units 08:00 06:00 WBC (4.5-11.0) 10^3/ul RBC (3.5-6.1) 10^6/uL Hgb (12.0-16.0) g/dL Hct (36.0-48.0) % MCV (80.0-105.0) fl MCH (25.0-35.0) pg MCHC (31.0-37.0) g/dl RDW (11.5-14.5) % Plt Count (120.0-450.0) 10^3/uL MPV (7.0-11.0) fl Gran % (50.0-68.0) % Lymph % (Auto) (22.0-35.0) % Waller % (Auto) (1.0-6.0) % Eos % (Auto) (1.5-5.0) % Baso % (Auto) (0.0-3.0) % Gran # (1.4-6.5) Lymph # (1.2-3.4) Waller # (0.1-0.6) Eos # (0.0-0.7) Baso # (0.0-2.0) K/mm3 pCO2 (35-45) mm/Hg pO2 (80-100) mm/Hg HCO3 (21-28) mmol/L ABG pH (7.35-7.45) ABG Total CO2 (22-28) mmol.L ABG O2 Saturation (95-98) % ABG O2 Content (15-23) ML/dl ABG Base Excess (-2.0-3.0) mmol/L ABG Hemoglobin (11.7-17.4) g/dL ABG Carboxyhemoglobin (0.5-1.5) % POC ABG HHb (Measured) (0-5) % ABG Methemoglobin (0.0-3.0) % ABG O2 Capacity (16-24) mL/dl Hgb O2 Saturation (95.0-98.0) % FiO2 % Sodium (132-148) mmol/L Potassium (3.6-5.0) mmol/L Chloride (98-107) mmol/L Carbon Dioxide (21-33) mmol/L Anion Gap (10-20) BUN (7-21) mg/dL Creatinine (0.7-1.2) mg/dl Est GFR ( Amer) Est GFR (Non-Af Amer) Random Glucose (70-110) mg/dL Calcium (8.4-10.5) mg/dL Phosphorus (2.5-4.5) mg/dL Magnesium (1.7-2.2) mg/dL Total Bilirubin (0.2-1.3) mg/dL AST (14-36) U/L ALT (7-56) U/L Alkaline Phosphatase (38-126) U/L Total Protein (5.8-8.3) g/dL Albumin (3.0-4.8) g/dL Albumin (PEP) 3.4 L (3.8-4.8) g/dL Globulin gm/dL Albumin/Globulin Ratio (1.1-1.8) Uhuzg-1-Bdiluifgi 0.5 H (0.2-0.3) g/dL Tsemn-4-Aqbbghddg 0.7 (0.5-0.9) g/dL Jyyd-6-Lajxvqbu 0.4 (0.4-0.6) g/dL Hwjb-6-Qjkkbphi 0.4 (0.2-0.5) g/dL Gamma Globulins 1.0 (0.8-1.7) g/dL Abnorm Protein Band 1 TEST NOT PERFORMED Abnorm Protein Band 2 TEST NOT PERFORMED Abnorm Protein Band 3 TEST NOT PERFORMED Calcium (PTH Intact) 8.8 (8.6-10.4) mg/dL PTH w/Ion &Tot Calcium 342 H (14-64) pg/mL DEBBIE & SPEP Interp See note Serum Immunofixation Not detected (Not Detected) Laboratory Results - last 24 hr 10/09/17 10/09/17 10/13/17 06:00 08:00 06:00 WBC 7.3 RBC 3.24 L Hgb 9.3 L Hct 30.3 L MCV 93.5 MCH 28.7 MCHC 30.7 L RDW 14.0 Plt Count 260 MPV 11.4 H Gran % 87.0 H Lymph % (Auto) 5.7 L Waller % (Auto) 7.2 H Eos % (Auto) 0.0 L Baso % (Auto) 0.1 Gran # 6.31 Lymph # 0.4 L Waller # 0.5 Eos # 0.0 Baso # 0.01 pCO2 pO2 HCO3 ABG pH ABG Total CO2 ABG O2 Saturation ABG O2 Content ABG Base Excess ABG Hemoglobin ABG Carboxyhemoglobin POC ABG HHb (Measured) ABG Methemoglobin ABG O2 Capacity Hgb O2 Saturation FiO2 Sodium Potassium Chloride Carbon Dioxide Anion Gap BUN Creatinine Est GFR ( Amer) Est GFR (Non-Af Amer) Random Glucose Calcium Phosphorus Magnesium Total Bilirubin AST ALT Alkaline Phosphatase Total Protein Albumin Albumin (PEP) 3.4 L Globulin Albumin/Globulin Ratio Gqqtk-6-Eegnwkjqu 0.5 H Erolv-4-Dzhnuwswv 0.7 Fmfq-8-Telverqm 0.4 Opjw-8-Jkcvwwkd 0.4 Gamma Globulins 1.0 Abnorm Protein Band 1 TEST NOT PERFORMED Abnorm Protein Band 2 TEST NOT PERFORMED Abnorm Protein Band 3 TEST NOT PERFORMED Calcium (PTH Intact) 8.8 PTH w/Ion &Tot Calcium 342 H DEBBIE & SPEP Interp See note Serum Immunofixation Not detected 10/13/17 10/13/17 06:00 07:00 WBC RBC Hgb Hct MCV MCH MCHC RDW Plt Count MPV Gran % Lymph % (Auto) Waller % (Auto) Eos % (Auto) Baso % (Auto) Gran # Lymph # Waller # Eos # Baso # pCO2 52 H pO2 116.0 H HCO3 23.9 ABG pH 7.27 L ABG Total CO2 25.5 ABG O2 Saturation 99.6 H ABG O2 Content 13.7 L ABG Base Excess -3.2 L ABG Hemoglobin 9.9 L ABG Carboxyhemoglobin 1.4 POC ABG HHb (Measured) 0.4 ABG Methemoglobin 1.1 ABG O2 Capacity 13.8 L Hgb O2 Saturation 97.0 FiO2 40.0 Sodium 144 Potassium 4.6 Chloride 110 H Carbon Dioxide 24 Anion Gap 14 BUN 88 H Creatinine 3.2 H Est GFR ( Amer) 17 Est GFR (Non-Af Amer) 14 Random Glucose 149 H Calcium 8.9 Phosphorus 4.8 H Magnesium 2.4 H Total Bilirubin 0.2 AST 56 H ALT 53 Alkaline Phosphatase 81 Total Protein 6.1 Albumin 3.1 Albumin (PEP) Globulin 2.9 Albumin/Globulin Ratio 1.1 Vomnm-7-Pvwvsmwbu Kevuj-7-Ukmrwrfnf Zaei-3-Fficlpom Mdzm-4-Uvhrzlsu Gamma Globulins Abnorm Protein Band 1 Abnorm Protein Band 2 Abnorm Protein Band 3 Calcium (PTH Intact) PTH w/Ion &Tot Calcium DEBBIE & SPEP Interp Serum Immunofixation Assessment/Plan - Assessment and Plan (Free Text) Plan: Pt seen and examined, with resident on rounds, agree with note with following additions/exceptions: 77yo female a/w hypercapnic resp failure, intubated. Currently afebrile, HD stable, comfortable, on CPAP trial. Hypercapnic Resp Failure, intubated COPD Hypernatremia, resolving PNA Recommend: - cont with vent support, low tidal vol ventilation, daily cpap trials - cont with Rocephin, Azithro - IV steroids, taper - FS control - cont with free water flushes - ECHO follow up - monitor electrolytes - feeds - GI ppx, PPI - DVT pp, HSQ - Prognosis poor - awaiting [facility] transfer
[2017-10-13 07:19] LABS: ARTERIAL BLOOD GAS HCO3 23.9 mmol/L (21-28); ARTERIAL BLOOD GAS HEMOGLOBIN 9.9 g/dL (11.7-17.4); ARTERIAL BLOOD GAS O2 CAPACITY 13.8 mL/dl (16-24); ARTERIAL BLOOD GAS O2 CONTENT 13.7 ML/dl (15-23); ARTERIAL BLOOD GAS O2 SAT 99.6 % (95-98); ARTERIAL BLOOD GAS PCO2 52 mm/Hg (35-45); ARTERIAL BLOOD GAS PH 7.27 (7.35-7.45); ARTERIAL BLOOD GAS TCO2 25.5 mmol.L (22-28)
[2017-10-13 07:38] LABS: BASO # 0.01 K/mm3 (0.0-2.0); BASO % 0.1 % (0.0-3.0); GRAN # 6.31 (1.4-6.5); HEMOGLOBIN 9.3 g/dL (12.0-16.0); LYMPH # 0.4 (1.2-3.4); LYMPH % 5.7 % (22.0-35.0); MEAN CELL VOLUME 93.5 fl (80.0-105.0); MEAN CORPUSCULAR HEMOGLOBIN 28.7 pg (25.0-35.0); MEAN CORPUSCULAR HGB CONC 30.7 g/dl (31.0-37.0); MEAN PLATELET VOLUME 11.4 fl (7.0-11.0); MONO # 0.5 (0.1-0.6); MONO % 7.2 % (1.0-6.0); RBC 3.24 10^6/uL (3.5-6.1); WHITE BLOOD COUNT 7.3 10^3/ul (4.5-11.0)
[2017-10-13 08:02] LABS: ALB/GLOB RATIO 1.1 (1.1-1.8); ALBUMIN 3.1 g/dL (3.0-4.8); CALCIUM 8.9 mg/dL (8.4-10.5); MAGNESIUM 2.4 mg/dL (1.7-2.2)
[2017-10-13] MEDS: Multivitamin Vitamin B Complex (Nephro-Vite) Tab PO SCH (08:34)
--- NOTE | 2017-10-13 09:42 | RAD ---
HISTORY: intubated COMPARISON: 10/12/2017 FINDINGS: LUNGS: No active pulmonary disease. PLEURA: Slight blunting of left costophrenic angle may reflect small pleural effusion. No pneumothorax. No right pleural effusion. CARDIOVASCULAR: Normal heart size. Surgical clips adjacent to left hilum. ETT and NG tube unchanged. OSSEOUS STRUCTURES: No significant abnormalities. VISUALIZED UPPER ABDOMEN: Normal. OTHER FINDINGS: None. IMPRESSION: Possible very small left pleural effusion. Lines and tubes unchanged.
[2017-10-13] MEDS: cefTRIAXone 1 gm 1 GM/100 ML BAG IVPB SCH (09:51)
[2017-10-13] MEDS: MethylPREDNISolone 40 mg Vial IVP SCH ×2 (09:51→21:47)
[2017-10-13] MEDS: Azithromycin 500MG/NS 250ml 500 MG/250 ML BAG IVPB SCH (10:01)
--- NOTE | 2017-10-13 11:53 | CP.PCM.PN ---
Subjective - Date & Time of Evaluation Date of Evaluation: 10/13/17 Time of Evaluation: 11:51 - Subjective Subjective: Follow up Nephrology Consultation: Assessment: critical Acute Kidney Injury (N17.9) likely dehydration, pre--renal state and ATN Hypernatremia: improved HTN, possible pneumonia, COPD Anemia hypercapnic respi failure likely has underlying CKD ? stage (echogenic kidneys on sono) secondary hyperparathyroidism, hyperphosphatemia Plan No acute need for renal replacement therapy at this time. Hypertension control with meds as ordered. Patient not on ACEI/ARB due to AVERY. started on norvasc 5 mg/day, BP mostly controlled Monitor Input/Output, daily weights and renal function with basic metabolic panel continue with free water supplements started oral iron, MVI, calcitriol q 2 day, phos binders and dose of aransep Dose meds/antibiotics for reduced GFR. Avoid fleets enema/magnesium based laxatives. Avoid nephrotoxins/NSAIDs/ iodinated contrast (unless needed emergently) Glycemic control Further work up/management as per primary team pt being planned for d/c to LTAC. Thanks for allowing me to participate in care of your patient. Will follow patient with you. Please call if any Qs. d/w team Dr Hammad Feldman Office: [phone] Chief Complaint; Unable Source of Info: medical chart review HPI: Pt is a 77 y/o F with hx of hypertension, asthma, parkinson disease came with AMS, decreased oral intake, CO2 retention AVERY and hypernatremia hence renal consulted. pt unable to provide any hx No known recent iodinated contrast exposure. No obvious episodes of low BP. ROS: unable Physical Examination: General Appearance: elderly appearing female Vitals reviewed and noted as below Head; Atraumatic, normocephalic ENT: orally intubated EYES: Pupils are equal, round and reactive to light accommodation. Eye muscles and extraocular movement intact. Sclera is anicteric. Neck; supple no lymphadenopathy, no thyromegaly or bruit Lungs: increased respiratory rate/effort. Breath sounds bilateral decreased at bases she is mechanically ventilated Heart: Normal rate. s1s2 normal. No rub or gallop. Extremities: no edema. No varicose veins Neurological: Patient is awake follows commands Skin: Warm and dry. Normal turgor. No rash. Palpitation: Normal elasticity for age Abdomen: Abdomen is soft. Bowel sounds +. There is no abdominal tenderness, no guarding/rigidity no organomegaly. has myoclonus jerks Psych:unable MSK: no joint tenderness or swelling. Digits and nails normal, no deformity : kidney or bladder not palpable Labs/imaging/EKG reviewed. Past medical history, past surgical history, family history, social history, allergy reviewed and noted as below family hx: unable to obtain renal sono; echogenic kidneys Objective - Vital Signs/Intake and Output Vital Signs (last 24 hours): Temp Pulse Resp BP Pulse Ox 98.2 F 78 18 172/95 H 100 10/13/17 11:06 10/13/17 11:34 10/13/17 11:00 10/13/17 11:34 10/13/17 11:06 Intake and Output: 10/13/17 10/13/17 06:59 18:59 Intake Total 1254 Output Total 750 Balance 504 - Medications Medications: Current Medications Acetaminophen (Tylenol 325mg Tab) 650 mg PO Q4H PRN PRN Reason: Fever >100.4 F Albuterol/Ipratropium (Duoneb 3 Mg/0.5 Mg (3 Ml) Ud) 3 ml IH [id number] [facility] Last Admin: 10/13/17 08:06 Dose: 3 ml Amlodipine Besylate (Norvasc) 5 mg PO DAILY [facility] Last Admin: 10/13/17 09:51 Dose: 5 mg Calcitriol (Rocaltrol) 0.25 mcg PO Q2D [facility] Last Admin: 10/12/17 17:22 Dose: 0.25 mcg Calcium Acetate (Phoslo) 667 mg PO WM [facility] Last Admin: 10/13/17 11:29 Dose: 667 mg Famotidine (Pepcid) 20 mg IVP DAILY [facility] Last Admin: 10/13/17 09:51 Dose: 20 mg Ferrous Gluconate (Fergon) 324 mg PO TID [facility] Last Admin: 10/13/17 09:57 Dose: 324 mg Heparin Sodium (Porcine) (Heparin) 5,000 units SC Q8 DAVID PRN Reason: Protocol Last Admin: 10/13/17 05:59 Dose: 5,000 units Hydralazine HCl (Apresoline) 10 mg IVP Q8H PRN PRN Reason: Systolic Blood Pressure Last Admin: 10/13/17 11:34 Dose: 10 mg Ceftriaxone Sodium (Rocephin 1 Gram Ivpb) 1 gm in 100 mls @ 100 mls/hr IVPB DAILY DAVID PRN Reason: Protocol Last Admin: 10/13/17 09:51 Dose: 100 mls/hr Azithromycin (Zithromax 500mg In Ns) 500 mg in 250 mls @ 167 mls/hr IVPB DAILY DAVID PRN Reason: Protocol Last Admin: 10/13/17 10:01 Dose: 167 mls/hr Midazolam 100 mg/100ml in NS (Midazolam 100 Mg/100ml In Ns) 100 mg in 100 mls @ 1 mls/hr IV .Q24H PRN; Protocol; 1 MG/HR PRN Reason: Agitation Last Titration: 10/12/17 09:00 Dose: 2 mg/hr, 2 mls/hr Methylprednisolone (Solu-Medrol) 20 mg IVP Q12 [facility] Last Admin: 10/13/17 09:51 Dose: 20 mg Vitamin B Complex/Vit C/Folic Acid (Nephro-Milagro) 1 tab PO 0800 [facility] Last Admin: 10/13/17 08:34 Dose: 1 tab - Labs Labs: 10/13/17 06:00 10/13/17 06:00 PT 10.7 SECONDS (9.4-12.5) 10/07/17 23:39 INR 0.94 (0.93-1.08) 10/07/17 23:39 APTT 34.5 Seconds (25.1-36.5) 10/07/17 23:39
--- NOTE | 2017-10-13 15:40 | CP.PCM.PN ---
<Ember Magaña - Last Filed: 10/13/17 15:44> Subjective - Date & Time of Evaluation Date of Evaluation: 10/13/17 Time of Evaluation: 09:36 - Subjective Subjective: Ember Magaña, PGY1, Medicine Progress note for Dr Langley: Patient seen and examined at bedside. No acute distress. No acute events overnight. Patient remains intubated, but easily arousable, follows commands. Objective - Vital Signs/Intake and Output Vital Signs (last 24 hours): Temp Pulse Resp BP Pulse Ox 97.9 F 92 H 19 114/67 100 10/13/17 15:20 10/13/17 15:20 10/13/17 15:20 10/13/17 15:00 10/13/17 15:20 Intake and Output: 10/13/17 10/13/17 06:59 18:59 Intake Total 1254 Output Total 750 Balance 504 - Medications Medications: Current Medications Acetaminophen (Tylenol 325mg Tab) 650 mg PO Q4H PRN PRN Reason: Fever >100.4 F Albuterol/Ipratropium (Duoneb 3 Mg/0.5 Mg (3 Ml) Ud) 3 ml IH [id number] [facility] Last Admin: 10/13/17 13:12 Dose: 3 ml Amlodipine Besylate (Norvasc) 5 mg PO DAILY [facility] Last Admin: 10/13/17 09:51 Dose: 5 mg Calcitriol (Rocaltrol) 0.25 mcg PO Q2D [facility] Last Admin: 10/12/17 17:22 Dose: 0.25 mcg Calcium Acetate (Phoslo) 667 mg PO WM [facility] Last Admin: 10/13/17 11:29 Dose: 667 mg Famotidine (Pepcid) 20 mg IVP DAILY [facility] Last Admin: 10/13/17 09:51 Dose: 20 mg Ferrous Gluconate (Fergon) 324 mg PO TID [facility] Last Admin: 10/13/17 13:39 Dose: Not Given Heparin Sodium (Porcine) (Heparin) 5,000 units SC Q8 DAVID PRN Reason: Protocol Last Admin: 10/13/17 13:38 Dose: 5,000 units Hydralazine HCl (Apresoline) 10 mg IVP Q8H PRN PRN Reason: Systolic Blood Pressure Last Admin: 10/13/17 11:34 Dose: 10 mg Ceftriaxone Sodium (Rocephin 1 Gram Ivpb) 1 gm in 100 mls @ 100 mls/hr IVPB DAILY DAVID PRN Reason: Protocol Last Admin: 10/13/17 09:51 Dose: 100 mls/hr Azithromycin (Zithromax 500mg In Ns) 500 mg in 250 mls @ 167 mls/hr IVPB DAILY DAVID PRN Reason: Protocol Last Admin: 10/13/17 10:01 Dose: 167 mls/hr Midazolam 100 mg/100ml in NS (Midazolam 100 Mg/100ml In Ns) 100 mg in 100 mls @ 1 mls/hr IV .Q24H PRN; Protocol; 1 MG/HR PRN Reason: Agitation Last Titration: 10/12/17 09:00 Dose: 2 mg/hr, 2 mls/hr Methylprednisolone (Solu-Medrol) 20 mg IVP Q12 [facility] Last Admin: 10/13/17 09:51 Dose: 20 mg Vitamin B Complex/Vit C/Folic Acid (Nephro-Milagro) 1 tab PO 0800 [facility] Last Admin: 10/13/17 08:34 Dose: 1 tab - Labs Labs: 10/13/17 06:00 10/13/17 06:00 PT 10.7 SECONDS (9.4-12.5) 10/07/17 23:39 INR 0.94 (0.93-1.08) 10/07/17 23:39 APTT 34.5 Seconds (25.1-36.5) 10/07/17 23:39 - Additional Findings Additional findings: - Constitutional Appears: No Acute Distress - Head Exam Head Exam: ATRAUMATIC, NORMAL INSPECTION, NORMOCEPHALIC - Eye Exam Eye Exam: Normal appearance - ENT Exam Additional comments: intubated - Respiratory Exam Respiratory Exam: Clear to Ausculation Bilateral, NORMAL BREATHING PATTERN. absent: Rales, Rhonchi, Wheezes, Respiratory Distress - Cardiovascular Exam Cardiovascular Exam: REGULAR RHYTHM, +S1, +S2. absent: Tachycardia, Murmur - GI/Abdominal Exam GI & Abdominal Exam: Soft, Normal Bowel Sounds. absent: Distended, Tenderness - Extremities Exam Extremities Exam: Normal Inspection. absent: Pedal Edema - Neurological Exam Neurological Exam: Alert, Awake - Skin Skin Exam: Dry, Normal Color, Warm Assessment and Plan - Assessment and Plan (Free Text) Assessment: 77 year old female with PMH HTN, asthma, Parkinson's?, admitted for AMS, failure to thrive, AVERY, hypernatremia, found to be in respiratory distress s/p intubation for hypercapneic respiratory acidosis: Hypercapneic Respiratory acidosis: - due to asthma - [facility] Management as per ICU. - daily cpap trial per ICU - monitor ABGs - Duoneb 3ml inh q6 - Weaned Solumedrol 20mg ivp q12h - Rocephin 1gm ivpb qd (start 10/08, day 6) - Zithromax 500mg ivpb qd (start 10/08, day 6) AMS: - 2/2 hypernatremia vs worsening dementia vs delirium - baseline patient is unable to complete ADLs and unable to ambulate by her self , AOx2 - CT head: 3mm round hyperdensity in the left temporal lobe inferiorly and cannot exclude a tiny acute intraparenchymal bleed, repeat showed similar finding - MRI brain, MRA head and neck pending - TSH normal, RPR NonReactive, Vit B12 >1000, folate >20 - head of bed > 45 - echo showed EF 59, mild concentric left vent function - Blood cultures negative, urine cultures negative - neurology consulted. Appreciate recs. AVERY - Likely secondary to dehydration vs ATN - FENa was 2.5, intrinsic - creatinine 3.7, improved since admission, unknown baseline possible underlying ckd - Nephro on board. appreciate recs. - Urine culture negative Hypernatremia - resolved - continue free water flushes - Hold 1/2NS - ICU following - Nephro consulted. appreciate recs. Hyperkalemia: - improved 4.6 this am - Cont to monitor, correct as needed. Failure to thrive: - Dehydrated, no oral intake over several days - Intubated - Tolerating tube feeds with minimal residual. anemia - multi factorial - iron is wnl - vitamin B12 greater then 1000 - folate wnl - Nephro on board. Appreciate recs. Erythropoetin, iron sulfate and Vitamin B complex recommended. - continue to monitor Prophylaxis Protonix heparin Sq Dipso: possibly LTAC? Discussed with Dr Langley. Ember Magaña, PGY1 <Kathy Langley - Last Filed: 10/17/17 14:15> Objective - Vital Signs/Intake and Output Vital Signs (last 24 hours): Temp Pulse Resp BP Pulse Ox 98.0 F 86 70 H 105/65 90 L 10/15/17 12:00 10/17/17 06:56 10/16/17 17:50 10/17/17 11:20 10/16/17 17:50 Intake and Output: 10/17/17 10/17/17 06:59 18:59 Intake Total 120 Balance 120 - Medications Medications: Current Medications Acetaminophen (Tylenol 325mg Tab) 650 mg PO Q4H PRN PRN Reason: Fever >100.4 F Albuterol/Ipratropium (Duoneb 3 Mg/0.5 Mg (3 Ml) Ud) 3 ml IH [id number] [facility] Last Admin: 10/17/17 07:24 Dose: 3 ml Amlodipine Besylate (Norvasc) 10 mg PO DAILY [facility] Last Admin: 10/17/17 11:20 Dose: Not Given Benztropine Mesylate (Cogentin) 1 mg PO BID [facility] Last Admin: 10/17/17 11:10 Dose: 1 mg Cinacalcet (Sensipar) 30 mg PO DAILY [facility] Stop: 10/18/17 10:01 Last Admin: 10/17/17 11:10 Dose: 30 mg Famotidine (Pepcid) 20 mg PO DAILY [facility] Last Admin: 10/17/17 11:10 Dose: 20 mg Ferrous Gluconate (Fergon) 324 mg PO TID [facility] Last Admin: 10/17/17 13:14 Dose: 324 mg Hydralazine HCl (Apresoline) 10 mg IVP Q8H PRN PRN Reason: Systolic Blood Pressure Last Admin: 10/17/17 06:56 Dose: 10 mg Hydralazine HCl (Apresoline) 100 mg PO BID [facility] Last Admin: 10/17/17 11:19 Dose: Not Given Dextrose (Dextrose 5% In Water 1000 Ml) 1,000 mls @ 50 mls/hr IV .Q20H [facility] Last Admin: 10/17/17 13:19 Dose: 50 mls/hr Metoprolol Succinate (Toprol Xl) 37.5 mg PO DAILY [facility] Last Admin: 10/17/17 11:21 Dose: Not Given Prednisone (Prednisone Tab) 30 mg PO DAILY [facility] Sevelamer HCl (Renagel) 800 mg PO TID [facility] Last Admin: 10/17/17 13:15 Dose: 800 mg Vitamin B Complex/Vit C/Folic Acid (Nephro-Milagro) 1 tab PO 0800 [facility] Last Admin: 10/17/17 11:10 Dose: 1 tab - Labs Labs: 10/17/17 08:50 10/17/17 08:50 PT 10.7 SECONDS (9.4-12.5) 10/07/17 23:39 INR 0.94 (0.93-1.08) 10/07/17 23:39 APTT 34.5 Seconds (25.1-36.5) 10/07/17 23:39 Attending/Attestation - Attestation I have personally seen and examined this patient.: Yes I have fully participated in the care of the patient.: Yes I have reviewed all pertinent clinical information, including history, physical exam and plan: Yes Notes (Text): 10/17/17 14:12 Patient was seen and examined with medical imaging tech. 77 year old female with past medical history of hypertension and asthma /COPD was admitted with altered mental status and failure to thrive. She was found to have severe hypernatremia and renal failure. She also was intubated for hypercapnic Resp Failure and was admitted to the ICU.She is on iv steroids and antibiotics.Patient is extubated today. Hypernatremia is improving. Nephrology is following. Creatinine also has improved from 4.9 to 3.2 and is stable; likely patient has underlying stage IV CKD. CT head showed 3 mm hyperdensity in the left temporal lobe. Neurology is following and ordered for MRI/MRA studies, patient is unable to stay still and complete MRI. Patient is hypoxic, does not has any focal deficit, has underlying dementia, will not change the management. Prognosis is guarded. 10/17/17 14:15
[2017-10-14] MEDS: Albuterol-Ipratrop 3 mg / 0.5 (3 ml) UD IH SCH ×4 (02:31→19:43)
[2017-10-14 05:39] LABS: ARTERIAL BLOOD GAS HCO3 25.4 mmol/L (21-28); ARTERIAL BLOOD GAS O2 CAPACITY 13.9 mL/dl (16-24); ARTERIAL BLOOD GAS O2 CONTENT 13.9 ML/dl (15-23); ARTERIAL BLOOD GAS O2 SAT 99.9 % (95-98); ARTERIAL BLOOD GAS PCO2 54 mm/Hg (35-45); ARTERIAL BLOOD GAS PH 7.28 (7.35-7.45); ARTERIAL BLOOD GAS TCO2 27.1 mmol.L (22-28)
--- NOTE | 2017-10-14 06:26 | CP.PCM.PN ---
Subjective - Date & Time of Evaluation Date of Evaluation: 10/14/17 Time of Evaluation: 06:23 - Subjective Subjective: Ms. Sylvester was seen and examined at the bedside in ICU. She is alert, answer some questions appropriately. She is unable to verbalize place, person, and time. She has the involuntary movements with her he3ad. She is able to follow simple commands. She has bilateral upper extremity restraint for patient safety. She remains with SCD bilateral lower extremities. There was no untoward events overnight. Objective - Vital Signs/Intake and Output Vital Signs (last 24 hours): Temp Pulse Resp BP Pulse Ox 98.1 F 84 19 156/89 H 100 10/14/17 04:00 10/14/17 06:10 10/14/17 06:10 10/14/17 06:00 10/14/17 06:10 Intake and Output: 10/13/17 10/14/17 18:59 06:59 Intake Total 80 Output Total 550 800 Balance -470 -800 - Medications Medications: Current Medications Acetaminophen (Tylenol 325mg Tab) 650 mg PO Q4H PRN PRN Reason: Fever >100.4 F Albuterol/Ipratropium (Duoneb 3 Mg/0.5 Mg (3 Ml) Ud) 3 ml IH [id number] [facility] Last Admin: 10/14/17 02:31 Dose: 3 ml Amlodipine Besylate (Norvasc) 5 mg PO DAILY [facility] Last Admin: 10/13/17 09:51 Dose: 5 mg Calcitriol (Rocaltrol) 0.25 mcg PO Q2D [facility] Last Admin: 10/12/17 17:22 Dose: 0.25 mcg Calcium Acetate (Phoslo) 667 mg PO WM [facility] Last Admin: 10/13/17 18:08 Dose: Not Given Famotidine (Pepcid) 20 mg IVP DAILY [facility] Last Admin: 10/13/17 09:51 Dose: 20 mg Ferrous Gluconate (Fergon) 324 mg PO TID [facility] Last Admin: 10/13/17 18:08 Dose: Not Given Heparin Sodium (Porcine) (Heparin) 5,000 units SC Q8 DAVID PRN Reason: Protocol Last Admin: 10/14/17 05:33 Dose: 5,000 units Hydralazine HCl (Apresoline) 10 mg IVP Q8H PRN PRN Reason: Systolic Blood Pressure Last Admin: 10/13/17 11:34 Dose: 10 mg Ceftriaxone Sodium (Rocephin 1 Gram Ivpb) 1 gm in 100 mls @ 100 mls/hr IVPB DAILY DAVID PRN Reason: Protocol Last Admin: 10/13/17 09:51 Dose: 100 mls/hr Azithromycin (Zithromax 500mg In Ns) 500 mg in 250 mls @ 167 mls/hr IVPB DAILY DAVID PRN Reason: Protocol Last Admin: 10/13/17 10:01 Dose: 167 mls/hr Midazolam 100 mg/100ml in NS (Midazolam 100 Mg/100ml In Ns) 100 mg in 100 mls @ 1 mls/hr IV .Q24H PRN; Protocol; 1 MG/HR PRN Reason: Agitation Last Titration: 10/12/17 09:00 Dose: 2 mg/hr, 2 mls/hr Methylprednisolone (Solu-Medrol) 20 mg IVP Q12 [facility] Last Admin: 10/13/17 21:47 Dose: 20 mg Vitamin B Complex/Vit C/Folic Acid (Nephro-Imlagro) 1 tab PO 0800 [facility] Last Admin: 10/13/17 08:34 Dose: 1 tab - Labs Labs: 10/13/17 06:00 10/13/17 06:00 PT 10.7 SECONDS (9.4-12.5) 10/07/17 23:39 INR 0.94 (0.93-1.08) 10/07/17 23:39 APTT 34.5 Seconds (25.1-36.5) 10/07/17 23:39 - Constitutional Appears: No Acute Distress - Head Exam Head Exam: NORMAL INSPECTION - Neurological Exam Neurological Exam: Alert, Awake Neuro motor strength exam: Left Upper Extremity: 5, Right Upper Extremity: 5, Left Lower Extremity: 5, Right Lower Extremity: 5 Additional comments: neurological improved from previous examination. Assessment and Plan (1) Abnormal CT scan, head Assessment & Plan: Case discussed with Dr. Zamarripa, continue all current medical regimen. Pending MRI of the brain to evaluate any pathology in the brain. Status: Acute (2) Toxic metabolic encephalopathy Assessment & Plan: Case discussed with Dr. Zamarripa, continue all current medical regimen. Please refer to nephrology any abnormal in her electrolytes. Status: Acute
[2017-10-14 06:30] LABS: BASO # 0.01 K/mm3 (0.0-2.0); BASO % 0.1 % (0.0-3.0); GRAN # 8.2 (1.4-6.5); GRAN % 88.2 % (50.0-68.0); HEMOGLOBIN 9.5 g/dL (12.0-16.0); LYMPH # 0.6 (1.2-3.4); LYMPH % 6.9 % (22.0-35.0); MEAN CELL VOLUME 93.1 fl (80.0-105.0); MEAN CORPUSCULAR HEMOGLOBIN 28.4 pg (25.0-35.0); MEAN CORPUSCULAR HGB CONC 30.4 g/dl (31.0-37.0); MEAN PLATELET VOLUME 11.1 fl (7.0-11.0); MONO # 0.5 (0.1-0.6); MONO % 4.8 % (1.0-6.0); RBC 3.35 10^6/uL (3.5-6.1); RED CELL DISTRIBUTION WIDTH 14.2 % (11.5-14.5); WHITE BLOOD COUNT 9.3 10^3/ul (4.5-11.0)
[2017-10-14 06:45] LABS: ALB/GLOB RATIO 1.1 (1.1-1.8); ALBUMIN 3.5 g/dL (3.0-4.8); MAGNESIUM 2.5 mg/dL (1.7-2.2)
--- NOTE | 2017-10-14 06:58 | CP.CCUPN ---
<Khadijah Faith - Last Filed: 10/14/17 10:48> CCU Subjective - Physician Review Subjective (Free Text): 10/14/17 08:49 Patient seen and examined at bedside. No acute events overnight as per nursing. Patient was extubated yesterday 10/13 and was on NC 2L overnight. Patient had 1 BM and is making good urine with output 750cc. NPO and pending swallow eval. Patient nods her head and responds to pain. Denied any pain. Complete ROS unobtainable secondary to patient's baseline dementia. Critical Care Time Spent (in minutes): 45 CCU Objective - Vital Signs / Intake & Output Vital Signs (Last 4 hours): Vital Signs Temp Pulse Resp BP Pulse Ox 10/14/17 06:10 84 19 100 10/14/17 06:00 83 15 156/89 H 100 10/14/17 05:50 84 26 H 91 L 10/14/17 05:40 84 19 162/91 H 95 10/14/17 05:30 90 18 96 10/14/17 05:20 96 H 40 H 100 10/14/17 05:18 95 H 74 H 10/14/17 05:10 75 18 93 L 10/14/17 05:02 89 187/103 H 89 L 10/14/17 05:00 75 19 76 L 10/14/17 04:50 73 19 100 10/14/17 04:40 73 15 100 10/14/17 04:30 72 24 100 10/14/17 04:20 72 16 99 10/14/17 04:10 75 16 100 10/14/17 04:00 98.1 F 73 23 153/105 H 100 10/14/17 03:50 75 15 100 10/14/17 03:40 78 15 98 10/14/17 03:30 75 22 100 10/14/17 03:20 80 16 100 10/14/17 03:10 83 24 100 10/14/17 03:00 86 38 H 156/92 H 97 Intake and Output (Last 8hrs): Intake & Output 10/13/17 10/13/17 10/14/17 14:59 22:59 06:59 Intake Total 80 Output Total 550 800 Balance -470 -800 Weight 43.091 kg Intake: Tube Feeding 80 Output: Urine 550 800 Urethral (Basurto) 550 800 Other: # Bowel Movements 2 1 - Physical Exam Head: Positive for: Atraumatic, Normocephalic Pupils: Positive for: PERRL Extroacular Muscles: Positive for: EOMI Conjunctiva: Positive for: Normal Mouth: Positive for: Moist Mucous Membranes Nose (External): Positive for: Other (NC 2L) Neck: Positive for: Normal Range of Motion. Negative for: Meningeal Signs Respiratory/Chest: Positive for: Clear to Auscultation. Negative for: Respiratory Distress, Accessory Muscle Use, Wheezes, Rales, Rhonchi Cardiovascular: Positive for: Regular Rate and Rhythm, Normal S1, S2. Negative for: Murmurs Abdomen: Positive for: Normal Bowel Sounds. Negative for: Tenderness, Distention, Peritoneal Signs Upper Extremity: Positive for: Normal Inspection. Negative for: Cyanosis, Edema Lower Extremity: Positive for: Normal Inspection. Negative for: Edema Neurological: Positive for: CN II-XII Intact, Motor Func Grossly Intact Skin: Positive for: Warm, Dry, Normal Color. Negative for: Rashes Psychiatric: Positive for: Alert, Other (baseline dementia) - Medications Active Medications: Active Medications Generic Name Dose Route Start Last Admin Trade Name Freq PRN Reason Stop Dose Admin Acetaminophen 650 mg 10/08/17 04:20 Tylenol 325mg Tab PO Q4H PRN Fever >100.4 F Albuterol/Ipratropium 3 ml 10/11/17 08:00 10/14/17 02:31 Duoneb 3 Mg/0.5 Mg (3 Ml) Ud IH 3 ml [id number] DAVID Administration Amlodipine Besylate 5 mg 10/12/17 11:00 10/13/17 09:51 Norvasc PO 5 mg DAILY DAVID Administration Calcitriol 0.25 mcg 10/12/17 16:45 10/12/17 17:22 Rocaltrol PO 0.25 mcg Q2D DAVID Administration Calcium Acetate 667 mg 10/12/17 12:00 10/13/17 18:08 Phoslo PO Not Given WM DAVID Famotidine 20 mg 10/11/17 10:00 10/13/17 09:51 Pepcid IVP 20 mg DAILY DAVID Administration Ferrous Gluconate 324 mg 10/12/17 14:00 10/13/17 18:08 Fergon PO Not Given TID DAVID Heparin Sodium (Porcine) 5,000 units 10/08/17 14:00 10/14/17 05:33 Heparin SC 5,000 units Q8 DAVID Administration Protocol Hydralazine HCl 10 mg 10/08/17 13:55 10/13/17 11:34 Apresoline IVP 10 mg Q8H PRN Administration Systolic Blood Pressure Ceftriaxone Sodium 1 gm in 100 mls @ 100 mls/hr 10/08/17 13:00 10/13/17 09:51 Rocephin 1 Gram Ivpb IVPB 100 mls/hr DAILY DAVID Administration Protocol Azithromycin 500 mg in 250 mls @ 167 mls/hr 10/08/17 13:00 10/13/17 10:01 Zithromax 500mg In Ns IVPB 167 mls/hr DAILY DAVID Administration Protocol Midazolam 100 mg/100ml in NS 100 mg in 100 mls @ 1 mls/hr 10/10/17 07:29 09:00 Midazolam 100 Mg/100ml In Ns IV 2 mg/hr .Q24H PRN 2 mls/hr Agitation Titration Protocol 1 MG/HR Methylprednisolone 20 mg 10/11/17 09:44 10/13/17 21:47 Solu-Medrol IVP 20 mg Q12 DAVID Administration Vitamin B Complex/Vit C/Folic Acid 1 tab 10/13/17 08:00 10/13/17 08:34 Nephro-Milagro PO 1 tab 0800 DAVID Administration - Patient Studies Lab Studies: Lab Studies 10/14/17 10/14/17 10/13/17 Range/Units 06:00 05:25 07:00 WBC (4.5-11.0) 10^3/ul RBC (3.5-6.1) 10^6/uL Hgb (12.0-16.0) g/dL Hct (36.0-48.0) % MCV (80.0-105.0) fl MCH (25.0-35.0) pg MCHC (31.0-37.0) g/dl RDW (11.5-14.5) % Plt Count (120.0-450.0) 10^3/uL MPV (7.0-11.0) fl Gran % (50.0-68.0) % Lymph % (Auto) (22.0-35.0) % [place] % (Auto) (1.0-6.0) % Eos % (Auto) (1.5-5.0) % Baso % (Auto) (0.0-3.0) % Gran # (1.4-6.5) Lymph # (1.2-3.4) [place] # (0.1-0.6) Eos # (0.0-0.7) Baso # (0.0-2.0) K/mm3 pCO2 54 H 52 H (35-45) mm/Hg pO2 128.0 H 116.0 H (80-100) mm/Hg HCO3 25.4 23.9 (21-28) mmol/L ABG pH 7.28 L 7.27 L (7.35-7.45) ABG Total CO2 27.1 25.5 (22-28) mmol.L ABG O2 Saturation 99.9 H 99.6 H (95-98) % ABG O2 Content 13.9 L 13.7 L (15-23) ML/dl ABG Base Excess -1.8 -3.2 L (-2.0-3.0) mmol/L ABG Hemoglobin 10.0 L 9.9 L (11.7-17.4) g/dL ABG Carboxyhemoglobin 1.8 H 1.4 (0.5-1.5) % POC ABG HHb (Measured) 0.1 0.4 (0-5) % ABG Methemoglobin 1.1 1.1 (0.0-3.0) % ABG O2 Capacity 13.9 L 13.8 L (16-24) mL/dl Hgb O2 Saturation 97.0 97.0 (95.0-98.0) % FiO2 40.0 40.0 % Sodium 145 (132-148) mmol/L Potassium 4.9 (3.6-5.0) mmol/L Chloride 110 H (98-107) mmol/L Carbon Dioxide 24 (21-33) mmol/L Anion Gap 16 (10-20) BUN 85 H (7-21) mg/dL Creatinine 3.1 H (0.7-1.2) mg/dl Est GFR ( Amer) 18 Est GFR (Non-Af Amer) 15 Random Glucose 114 H (70-110) mg/dL Calcium 10.0 (8.4-10.5) mg/dL Phosphorus 5.6 H (2.5-4.5) mg/dL Magnesium 2.5 H (1.7-2.2) mg/dL Total Bilirubin 0.5 (0.2-1.3) mg/dL AST 42 H D (14-36) U/L ALT 61 H (7-56) U/L Alkaline Phosphatase 79 (38-126) U/L Total Protein 6.6 (5.8-8.3) g/dL Albumin 3.5 (3.0-4.8) g/dL Globulin 3.2 gm/dL Albumin/Globulin Ratio 1.1 (1.1-1.8) 10/13/17 10/13/17 Range/Units 06:00 06:00 WBC 7.3 (4.5-11.0) 10^3/ul RBC 3.24 L (3.5-6.1) 10^6/uL Hgb 9.3 L (12.0-16.0) g/dL Hct 30.3 L (36.0-48.0) % MCV 93.5 (80.0-105.0) fl MCH 28.7 (25.0-35.0) pg MCHC 30.7 L (31.0-37.0) g/dl RDW 14.0 (11.5-14.5) % Plt Count 260 (120.0-450.0) 10^3/uL MPV 11.4 H (7.0-11.0) fl Gran % 87.0 H (50.0-68.0) % Lymph % (Auto) 5.7 L (22.0-35.0) % [place] % (Auto) 7.2 H (1.0-6.0) % Eos % (Auto) 0.0 L (1.5-5.0) % Baso % (Auto) 0.1 (0.0-3.0) % Gran # 6.31 (1.4-6.5) Lymph # 0.4 L (1.2-3.4) [place] # 0.5 (0.1-0.6) Eos # 0.0 (0.0-0.7) Baso # 0.01 (0.0-2.0) K/mm3 pCO2 (35-45) mm/Hg pO2 (80-100) mm/Hg HCO3 (21-28) mmol/L ABG pH (7.35-7.45) ABG Total CO2 (22-28) mmol.L ABG O2 Saturation (95-98) % ABG O2 Content (15-23) ML/dl ABG Base Excess (-2.0-3.0) mmol/L ABG Hemoglobin (11.7-17.4) g/dL ABG Carboxyhemoglobin (0.5-1.5) % POC ABG HHb (Measured) (0-5) % ABG Methemoglobin (0.0-3.0) % ABG O2 Capacity (16-24) mL/dl Hgb O2 Saturation (95.0-98.0) % FiO2 % Sodium 144 (132-148) mmol/L Potassium 4.6 (3.6-5.0) mmol/L Chloride 110 H (98-107) mmol/L Carbon Dioxide 24 (21-33) mmol/L Anion Gap 14 (10-20) BUN 88 H (7-21) mg/dL Creatinine 3.2 H (0.7-1.2) mg/dl Est GFR ( Amer) 17 Est GFR (Non-Af Amer) 14 Random Glucose 149 H (70-110) mg/dL Calcium 8.9 (8.4-10.5) mg/dL Phosphorus 4.8 H (2.5-4.5) mg/dL Magnesium 2.4 H (1.7-2.2) mg/dL Total Bilirubin 0.2 (0.2-1.3) mg/dL AST 56 H (14-36) U/L ALT 53 (7-56) U/L Alkaline Phosphatase 81 (38-126) U/L Total Protein 6.1 (5.8-8.3) g/dL Albumin 3.1 (3.0-4.8) g/dL Globulin 2.9 gm/dL Albumin/Globulin Ratio 1.1 (1.1-1.8) Laboratory Results - last 24 hr 10/13/17 10/13/17 10/13/17 06:00 06:00 07:00 WBC 7.3 RBC 3.24 L Hgb 9.3 L Hct 30.3 L MCV 93.5 MCH 28.7 MCHC 30.7 L RDW 14.0 Plt Count 260 MPV 11.4 H Gran % 87.0 H Lymph % (Auto) 5.7 L [place] % (Auto) 7.2 H Eos % (Auto) 0.0 L Baso % (Auto) 0.1 Gran # 6.31 Lymph # 0.4 L [place] # 0.5 Eos # 0.0 Baso # 0.01 pCO2 52 H pO2 116.0 H HCO3 23.9 ABG pH 7.27 L ABG Total CO2 25.5 ABG O2 Saturation 99.6 H ABG O2 Content 13.7 L ABG Base Excess -3.2 L ABG Hemoglobin 9.9 L ABG Carboxyhemoglobin 1.4 POC ABG HHb (Measured) 0.4 ABG Methemoglobin 1.1 ABG O2 Capacity 13.8 L Hgb O2 Saturation 97.0 FiO2 40.0 Sodium 144 Potassium 4.6 Chloride 110 H Carbon Dioxide 24 Anion Gap 14 BUN 88 H Creatinine 3.2 H Est GFR ( Amer) 17 Est GFR (Non-Af Amer) 14 Random Glucose 149 H Calcium 8.9 Phosphorus 4.8 H Magnesium 2.4 H Total Bilirubin 0.2 AST 56 H ALT 53 Alkaline Phosphatase 81 Total Protein 6.1 Albumin 3.1 Globulin 2.9 Albumin/Globulin Ratio 1.1 10/14/17 10/14/17 05:25 06:00 WBC RBC Hgb Hct MCV MCH MCHC RDW Plt Count MPV Gran % Lymph % (Auto) [place] % (Auto) Eos % (Auto) Baso % (Auto) Gran # Lymph # [place] # Eos # Baso # pCO2 54 H pO2 128.0 H HCO3 25.4 ABG pH 7.28 L ABG Total CO2 27.1 ABG O2 Saturation 99.9 H ABG O2 Content 13.9 L ABG Base Excess -1.8 ABG Hemoglobin 10.0 L ABG Carboxyhemoglobin 1.8 H POC ABG HHb (Measured) 0.1 ABG Methemoglobin 1.1 ABG O2 Capacity 13.9 L Hgb O2 Saturation 97.0 FiO2 40.0 Sodium 145 Potassium 4.9 Chloride 110 H Carbon Dioxide 24 Anion Gap 16 BUN 85 H Creatinine 3.1 H Est GFR ( Amer) 18 Est GFR (Non-Af Amer) 15 Random Glucose 114 H Calcium 10.0 Phosphorus 5.6 H Magnesium 2.5 H Total Bilirubin 0.5 AST 42 H D ALT 61 H Alkaline Phosphatase 79 Total Protein 6.6 Albumin 3.5 Globulin 3.2 Albumin/Globulin Ratio 1.1 Fingerstick Blood Sugar Results: 104 Review of Systems - Review of Systems Systems not reviewed;Unavailable: Dementia Critical Care Progress Note - Nutrition Nutrition: Nutrition Category Date Time Status NPO Diet [DIET] Diets 10/13/17 Dinner Ordered Assessment/Plan - Assessment and Plan (Free Text) Assessment: 77yo female PMHx HTN, asthma, questionable Parkinson's disease presented to ED with 3 day history of AMS and respiratory distress. Plan: Neuro: -alert and responds to name and follows simple commands -baseline patient has dementia, unable to complete ADLs and unable to ambulate by her self -CT head: 3mm round hyperdensity in the left temporal lobe inferiously and cannot exclude a tiny acute intraparenchymal bleed -head of bed > 45 -Dr. Matias on board Cardio: -hemodynamically stable -Hydralazine 10mg ivp q8 prn SBP > 160mmHg -Norvasc 10mg po qd -keep MAP > 65 -Echo: EF >50%, LV is normal size, mild concentric LVH, LV function is normal, LV EF is WNL, AV is mildly to moderately calcified; aortic sclerosis Pulm: -maintain spO2 > 92% on 2L NC -Duoneb 3ml inh q4 -Solumedrol 10mg ivp q12 -BiPAP at night GI: -no acute issues -NPO until swallow eval Renal/Electrolytes: -hypernatremia resolved -Nephrovite, calcitriol, phoslo -Monitor Cr -Monitor Is and os -Basurto in place -Dr. Pinzon consulted Endo: -no acute issues -maintain euglycemia Heme: -no acute issues -Fergon 324mg po tid ID: -blood and urine culture: negative -procalcitonin: 0.53 -Influenza negative -abx d/c GI ppx: Pepcid 20mg ivp qd DVT ppx: Heparin 5000u sc q8; SCDs Diet: NPO until swallow eval Eval: PT/OT/speech/swallow Dispo: transfer to remote TELE Discussed with Dr. Anthony Faith PGY2 <Mervin Cruz - Last Filed: 10/14/17 12:31> CCU Objective - Vital Signs / Intake & Output Vital Signs (Last 4 hours): Vital Signs Pulse Resp BP Pulse Ox 10/14/17 11:20 80 16 100 10/14/17 11:10 76 22 100 10/14/17 11:00 78 17 158/96 H 100 10/14/17 10:50 78 14 100 10/14/17 10:40 81 19 100 10/14/17 10:30 78 21 98 10/14/17 10:28 80 36 H 10/14/17 10:20 87 18 100 10/14/17 10:10 80 18 100 10/14/17 10:00 81 20 146/90 100 10/14/17 09:50 95 H 48 H 58 L 10/14/17 09:40 83 32 H 72 L 10/14/17 09:30 79 22 68 L 10/14/17 09:20 82 26 H 72 L 10/14/17 09:10 82 19 75 L 10/14/17 09:00 82 144/89 90 L 10/14/17 08:54 81 29 H 10/14/17 08:53 81 20 10/14/17 08:52 81 13 10/14/17 08:51 81 30 H 10/14/17 08:50 80 10/14/17 08:49 81 59 H 10/14/17 08:48 82 10/14/17 08:47 80 57 H 10/14/17 08:46 80 10/14/17 08:45 81 20 10/14/17 08:44 82 15 10/14/17 08:43 82 24 10/14/17 08:42 82 22 10/14/17 08:41 86 35 H 10/14/17 08:40 82 27 H 10/14/17 08:39 82 22 10/14/17 08:38 82 10/14/17 08:37 84 25 H 10/14/17 08:36 83 19 10/14/17 08:35 82 30 H 10/14/17 08:34 84 17 10/14/17 08:33 83 18 10/14/17 08:32 83 24 10/14/17 08:31 82 22 10/14/17 08:30 85 27 H Intake and Output (Last 8hrs): Intake & Output 10/13/17 10/14/17 10/14/17 22:59 06:59 14:59 Intake Total 80 Output Total 550 800 Balance -470 -800 Intake: Tube Feeding 80 Output: Urine 550 800 Urethral (Basurto) 550 800 Other: # Bowel Movements 2 1 - Medications Active Medications: Active Medications Generic Name Dose Route Start Last Admin Trade Name Freq PRN Reason Stop Dose Admin Acetaminophen 650 mg 10/08/17 04:20 Tylenol 325mg Tab PO Q4H PRN Fever >100.4 F Albuterol/Ipratropium 3 ml 10/11/17 08:00 10/14/17 07:51 Duoneb 3 Mg/0.5 Mg (3 Ml) Ud IH 3 ml [id number] DAVID Administration Amlodipine Besylate 10 mg 10/14/17 10:00 10/14/17 10:00 Norvasc PO 10 mg DAILY DAVID Administration Calcitriol 0.25 mcg 10/12/17 16:45 10/12/17 17:22 Rocaltrol PO 0.25 mcg Q2D DAVID Administration Calcium Acetate 667 mg 10/12/17 12:00 10/14/17 10:01 Phoslo PO 667 mg WM DAVID Administration Famotidine 20 mg 10/11/17 10:00 10/14/17 10:01 Pepcid IVP 20 mg DAILY DAVID Administration Ferrous Gluconate 324 mg 10/12/17 14:00 10/14/17 09:59 Fergon PO 324 mg TID DAVID Administration Heparin Sodium (Porcine) 5,000 units 10/08/17 14:00 10/14/17 05:33 Heparin SC 5,000 units Q8 DAVID Administration Protocol Hydralazine HCl 10 mg 10/08/17 13:55 10/13/17 11:34 Apresoline IVP 10 mg Q8H PRN Administration Systolic Blood Pressure Methylprednisolone 10 mg 10/14/17 08:54 10/14/17 10:01 Solu-Medrol IVP 10 mg Q12 DAVID Administration Vitamin B Complex/Vit C/Folic Acid 1 tab 10/13/17 08:00 10/14/17 10:00 Nephro-Milagro PO 1 tab 0800 DAVID Administration - Patient Studies Lab Studies: Lab Studies 01/24/18 01/24/18 01/24/18 Range/Units 06:00 06:00 05:25 WBC 9.3 D (4.5-11.0) 10^3/ul RBC 3.35 L (3.5-6.1) 10^6/uL Hgb 9.5 L (12.0-16.0) g/dL Hct 31.2 L (36.0-48.0) % MCV 93.1 (80.0-105.0) fl MCH 28.4 (25.0-35.0) pg MCHC 30.4 L (31.0-37.0) g/dl RDW 14.2 (11.5-14.5) % Plt Count 287 (120.0-450.0) 10^3/uL MPV 11.1 H (7.0-11.0) fl Gran % 88.2 H (50.0-68.0) % Lymph % (Auto) 6.9 L (22.0-35.0) % [place] % (Auto) 4.8 (1.0-6.0) % Eos % (Auto) 0.0 L (1.5-5.0) % Baso % (Auto) 0.1 (0.0-3.0) % Gran # 8.20 H (1.4-6.5) Lymph # 0.6 L (1.2-3.4) [place] # 0.5 (0.1-0.6) Eos # 0.0 (0.0-0.7) Baso # 0.01 (0.0-2.0) K/mm3 pCO2 54 H (35-45) mm/Hg pO2 128.0 H (80-100) mm/Hg HCO3 25.4 (21-28) mmol/L ABG pH 7.28 L (7.35-7.45) ABG Total CO2 27.1 (22-28) mmol.L ABG O2 Saturation 99.9 H (95-98) % ABG O2 Content 13.9 L (15-23) ML/dl ABG Base Excess -1.8 (-2.0-3.0) mmol/L ABG Hemoglobin 10.0 L (11.7-17.4) g/dL ABG Carboxyhemoglobin 1.8 H (0.5-1.5) % POC ABG HHb (Measured) 0.1 (0-5) % ABG Methemoglobin 1.1 (0.0-3.0) % ABG O2 Capacity 13.9 L (16-24) mL/dl Hgb O2 Saturation 97.0 (95.0-98.0) % FiO2 40.0 % Sodium 145 (132-148) mmol/L Potassium 4.9 (3.6-5.0) mmol/L Chloride 110 H (98-107) mmol/L Carbon Dioxide 24 (21-33) mmol/L Anion Gap 16 (10-20) BUN 85 H (7-21) mg/dL Creatinine 3.1 H (0.7-1.2) mg/dl Est GFR ( Amer) 18 Est GFR (Non-Af Amer) 15 Random Glucose 114 H (70-110) mg/dL Calcium 10.0 (8.4-10.5) mg/dL Phosphorus 5.6 H (2.5-4.5) mg/dL Magnesium 2.5 H (1.7-2.2) mg/dL Total Bilirubin 0.5 (0.2-1.3) mg/dL AST 42 H D (14-36) U/L ALT 61 H (7-56) U/L Alkaline Phosphatase 79 (38-126) U/L Total Protein 6.6 (5.8-8.3) g/dL Albumin 3.5 (3.0-4.8) g/dL Globulin 3.2 gm/dL Albumin/Globulin Ratio 1.1 (1.1-1.8) Laboratory Results - last 24 hr 10/14/17 10/14/17 10/14/17 05:25 06:00 06:00 WBC 9.3 D RBC 3.35 L Hgb 9.5 L Hct 31.2 L MCV 93.1 MCH 28.4 MCHC 30.4 L RDW 14.2 Plt Count 287 MPV 11.1 H Gran % 88.2 H Lymph % (Auto) 6.9 L [place] % (Auto) 4.8 Eos % (Auto) 0.0 L Baso % (Auto) 0.1 Gran # 8.20 H Lymph # 0.6 L [place] # 0.5 Eos # 0.0 Baso # 0.01 pCO2 54 H pO2 128.0 H HCO3 25.4 ABG pH 7.28 L ABG Total CO2 27.1 ABG O2 Saturation 99.9 H ABG O2 Content 13.9 L ABG Base Excess -1.8 ABG Hemoglobin 10.0 L ABG Carboxyhemoglobin 1.8 H POC ABG HHb (Measured) 0.1 ABG Methemoglobin 1.1 ABG O2 Capacity 13.9 L Hgb O2 Saturation 97.0 FiO2 40.0 Sodium 145 Potassium 4.9 Chloride 110 H Carbon Dioxide 24 Anion Gap 16 BUN 85 H Creatinine 3.1 H Est GFR ( Amer) 18 Est GFR (Non-Af Amer) 15 Random Glucose 114 H Calcium 10.0 Phosphorus 5.6 H Magnesium 2.5 H Total Bilirubin 0.5 AST 42 H D ALT 61 H Alkaline Phosphatase 79 Total Protein 6.6 Albumin 3.5 Globulin 3.2 Albumin/Globulin Ratio 1.1 Critical Care Progress Note - Nutrition Nutrition: Nutrition Category Date Time Status NPO Diet [DIET] Diets 10/13/17 Dinner Ordered Attending/Attestation - Attestation I have personally seen and examined this patient.: Yes I have fully participated in the care of the patient.: Yes I have reviewed all pertinent clinical information: Yes Notes (Text): 10/14/17 12:28 The patient was seen and examined at the bedside. Patient care was discussed with resident Medical records, lab studies, and imaging were reviewed and management issues were discussed and formulated. Last 24H events reviewed. Agree with above treatment plans as outlined in 's note with addition of the following: -hemodynamic monitoring to maintain MAP>65; currently stable -o2 supplementation to maintain Spo2 90-92 Pao2>60; currently comfortable on NC ; use bipap PRN and HS -ABG reviewed and respiratory acidosis noted; will monitor pCo2 closely; continue nebs -CXR reviewed -f\u Bun\Cr and U\o -dysphagia eval and aspiration precautions -PT\OT eval -DVT \ PUD prophylaxis CCM f\u time 27min
[2017-10-14] MEDS: Multivitamin Vitamin B Complex (Nephro-Vite) Tab PO SCH ×2 (08:32→10:00)
[2017-10-14] MEDS: MethylPREDNISolone 40 mg Vial IVP SCH ×2 (10:01→22:32)
--- NOTE | 2017-10-14 11:45 | RAD ---
HISTORY: intubated COMPARISON: Comparison made with prior study 10/13/2017 FINDINGS: Interval removal ETT and NGT. No change left-sided subclavian PICC line with LUNGS: Re- demonstrated is poorly defined opacity left lung base likely representing some combination of atelectasis and or infiltrate with small effusion. Suspect tiny right-sided effusion as well PLEURA: No. As above. No pneumothorax apparent. CARDIOVASCULAR: Tip in the SVC. Heart size stable. OSSEOUS STRUCTURES: No significant abnormalities. VISUALIZED UPPER ABDOMEN: Normal. OTHER FINDINGS: None. IMPRESSION: Interval removal ETT and NGT. Re- demonstrated is poorly defined opacity left lung base likely representing some combination of atelectasis and or infiltrate with small effusion. Suspect tiny right-sided effusion as well
--- NOTE | 2017-10-14 12:31 | CP.PCM.PN ---
<Ember Magaña - Last Filed: 10/14/17 12:14> Subjective - Date & Time of Evaluation Date of Evaluation: 10/14/17 Time of Evaluation: 12:14 - Subjective Subjective: Ember Magaña, PGY1, Medicine Progress note for Dr Langley: Patient seen and examined at bedside. No acute distress. Pt extubated yesterday , remains stable on NC. Pt alert, awake follows simple commands, nods to questions. Nonverbal (for most part, pt's baseline as per family). Denies fever , chills, pain. Objective - Vital Signs/Intake and Output Vital Signs (last 24 hours): Temp Pulse Resp BP Pulse Ox 98.3 F 80 16 158/96 H 100 10/14/17 08:00 10/14/17 11:20 10/14/17 11:20 10/14/17 11:00 10/14/17 11:20 Intake and Output: 10/14/17 10/14/17 06:59 18:59 Output Total 800 Balance -800 - Medications Medications: Current Medications Acetaminophen (Tylenol 325mg Tab) 650 mg PO Q4H PRN PRN Reason: Fever >100.4 F Albuterol/Ipratropium (Duoneb 3 Mg/0.5 Mg (3 Ml) Ud) 3 ml IH [id number] [facility] Last Admin: 10/14/17 07:51 Dose: 3 ml Amlodipine Besylate (Norvasc) 10 mg PO DAILY [facility] Last Admin: 10/14/17 10:00 Dose: 10 mg Calcitriol (Rocaltrol) 0.25 mcg PO Q2D [facility] Last Admin: 10/12/17 17:22 Dose: 0.25 mcg Calcium Acetate (Phoslo) 667 mg PO WM [facility] Last Admin: 10/14/17 10:01 Dose: 667 mg Famotidine (Pepcid) 20 mg IVP DAILY [facility] Last Admin: 10/14/17 10:01 Dose: 20 mg Ferrous Gluconate (Fergon) 324 mg PO TID [facility] Last Admin: 10/14/17 09:59 Dose: 324 mg Heparin Sodium (Porcine) (Heparin) 5,000 units SC Q8 [facility] PRN Reason: Protocol Last Admin: 10/14/17 05:33 Dose: 5,000 units Hydralazine HCl (Apresoline) 10 mg IVP Q8H PRN PRN Reason: Systolic Blood Pressure Last Admin: 10/13/17 11:34 Dose: 10 mg Methylprednisolone (Solu-Medrol) 10 mg IVP Q12 [facility] Last Admin: 10/14/17 10:01 Dose: 10 mg Vitamin B Complex/Vit C/Folic Acid (Nephro-Milagro) 1 tab PO 0800 [facility] Last Admin: 10/14/17 10:00 Dose: 1 tab - Labs Labs: 10/14/17 06:00 10/14/17 06:00 PT 10.7 SECONDS (9.4-12.5) 10/07/17 23:39 INR 0.94 (0.93-1.08) 10/07/17 23:39 APTT 34.5 Seconds (25.1-36.5) 10/07/17 23:39 - Constitutional Appears: Non-toxic, No Acute Distress, Older Than Stated Age - Head Exam Head Exam: ATRAUMATIC, NORMOCEPHALIC - Eye Exam Eye Exam: EOMI, Normal appearance, PERRL. absent: Conjunctival injection, Scleral icterus Pupil Exam: PERRL - ENT Exam ENT Exam: Mucous Membranes Moist - Neck Exam Neck Exam: Full ROM - Respiratory Exam Respiratory Exam: Clear to Ausculation Bilateral. absent: Accessory Muscle Use , Chest Wall Tenderness, Rhonchi, Wheezes, Respiratory Distress - Cardiovascular Exam Cardiovascular Exam: RRR, +S1, +S2. absent: Murmur - Extremities Exam Extremities Exam: Normal Inspection. absent: Calf Tenderness, Pedal Edema - Back Exam Back Exam: NORMAL INSPECTION. absent: CVA tenderness (L), CVA tenderness (R) - Neurological Exam Neurological Exam: Alert, Awake Neuro motor strength exam: Left Upper Extremity: 5, Right Upper Extremity: 5, Left Lower Extremity: 5, Right Lower Extremity: 5 - Psychiatric Exam Psychiatric exam: Normal Affect - Skin Skin Exam: Dry, Normal Color, Warm Assessment and Plan - Assessment and Plan (Free Text) Assessment: 77 year old female with PMH HTN, asthma, Parkinson's?, admitted for AMS, failure to thrive, AVERY, hypernatremia, found to be in respiratory distress s/p extubation yesterday, on NC. Pt awake, alert, responds to some questions ( baseline as per family). Awaiting speech/swallow evaluation. Put in for hospice eval since this is patient's baseline: AMS: - 2/2 hypernatremia vs worsening dementia vs delirium - baseline patient is unable to complete ADLs and unable to ambulate by her self , AOx2 - CT head: 3mm round hyperdensity in the left temporal lobe inferiorly and cannot exclude a tiny acute intraparenchymal bleed, repeat showed similar finding - MRI brain pending - TSH normal, RPR NonReactive, Vit B12 >1000, folate >20 - head of bed > 45 - echo showed EF 59%, mild concentric left vent function - Blood cultures negative, urine cultures negative - neurology consulted. Appreciate recs. Failure to thrive: - Dehydrated, no oral intake over several days - Speech and swallow eval. Will start feeds and monitor input. - Hospice eval obtained. AVERY - Likely secondary to dehydration vs ATN - FENa was 2.5, intrinsic - creatinine 3.7, improved since admission, unknown baseline possible underlying ckd - Nephro on board. appreciate recs. - Urine culture negative Hypercapneic Respiratory acidosis, resolved: - due to asthma - s/p extubation, on 2L NC - Weaned Solumedrol 10mg ivp q12h - Rocephin 1gm ivpb qd (start 10/08, day 7) - Zithromax 500mg ivpb qd (start 10/08, day 7) - Downgraded to remote tele Hypernatremia - resolved - continue free water flushes - Hold 1/2NS - ICU following - Nephro consulted. appreciate recs. Hyperkalemia: - Cont to monitor, correct as needed. Anemia - multi factorial - iron is wnl - vitamin B12 greater then 1000 - folate wnl - Nephro on board. Appreciate recs. Erythropoetin, iron sulfate and Vitamin B complex recommended. - continue to monitor Prophylaxis Protonix heparin Sq Dispo: No LTAC due to insurance issues. Lives with son in [place]. Was visiting daughter in [place]. Discussed with Dr Langley. Ember Magaña, PGY1 <Kathy Langley - Last Filed: 10/17/17 14:19> Objective - Vital Signs/Intake and Output Vital Signs (last 24 hours): Temp Pulse Resp BP Pulse Ox 98.0 F 86 70 H 105/65 90 L 10/15/17 12:00 10/17/17 06:56 10/16/17 17:50 10/17/17 11:20 10/16/17 17:50 Intake and Output: 10/17/17 10/17/17 06:59 18:59 Intake Total 120 Balance 120 - Medications Medications: Current Medications Acetaminophen (Tylenol 325mg Tab) 650 mg PO Q4H PRN PRN Reason: Fever >100.4 F Albuterol/Ipratropium (Duoneb 3 Mg/0.5 Mg (3 Ml) Ud) 3 ml IH [id number] [facility] Last Admin: 10/17/17 07:24 Dose: 3 ml Amlodipine Besylate (Norvasc) 10 mg PO DAILY [facility] Last Admin: 10/17/17 11:20 Dose: Not Given Benztropine Mesylate (Cogentin) 1 mg PO BID [facility] Last Admin: 10/17/17 11:10 Dose: 1 mg Cinacalcet (Sensipar) 30 mg PO DAILY [facility] Stop: 10/18/17 10:01 Last Admin: 10/17/17 11:10 Dose: 30 mg Famotidine (Pepcid) 20 mg PO DAILY [facility] Last Admin: 10/17/17 11:10 Dose: 20 mg Ferrous Gluconate (Fergon) 324 mg PO TID [facility] Last Admin: 10/17/17 13:14 Dose: 324 mg Hydralazine HCl (Apresoline) 10 mg IVP Q8H PRN PRN Reason: Systolic Blood Pressure Last Admin: 10/17/17 06:56 Dose: 10 mg Hydralazine HCl (Apresoline) 100 mg PO BID [facility] Last Admin: 10/17/17 11:19 Dose: Not Given Dextrose (Dextrose 5% In Water 1000 Ml) 1,000 mls @ 50 mls/hr IV .Q20H [facility] Last Admin: 10/17/17 13:19 Dose: 50 mls/hr Metoprolol Succinate (Toprol Xl) 37.5 mg PO DAILY [facility] Last Admin: 10/17/17 11:21 Dose: Not Given Prednisone (Prednisone Tab) 30 mg PO DAILY [facility] Sevelamer HCl (Renagel) 800 mg PO TID [facility] Last Admin: 10/17/17 13:15 Dose: 800 mg Vitamin B Complex/Vit C/Folic Acid (Nephro-Milagro) 1 tab PO 0800 [facility] Last Admin: 10/17/17 11:10 Dose: 1 tab - Labs Labs: 10/17/17 08:50 10/17/17 08:50 PT 10.7 SECONDS (9.4-12.5) 10/07/17 23:39 INR 0.94 (0.93-1.08) 10/07/17 23:39 APTT 34.5 Seconds (25.1-36.5) 10/07/17 23:39 Attending/Attestation - Attestation I have personally seen and examined this patient.: Yes I have fully participated in the care of the patient.: Yes I have reviewed all pertinent clinical information, including history, physical exam and plan: Yes Notes (Text): 10/17/17 14:16 Patient was seen and examined with certified medical transcriptionist. 77 year old female with past medical history of hypertension and asthma /COPD was admitted with altered mental status and failure to thrive. She was found to have severe hypernatremia and renal failure. She also was intubated for hypercapnic Resp Failure and was admitted to the ICU.She is on iv steroids and antibiotics.Patient was extubated yesterday, wheezing is better , still hypoxic and has intermittent agitation. Dysphagia, will get sswallow evaluation. Hypernatremia is improved.Sodium 145. Nephrology is following. Creatinine is improving from 4.9 to 3.1 and is stable; likely patient has underlying stage IV CKD. CT head showed 3 mm hyperdensity in the left temporal lobe. Neurology is following and ordered for MRI/MRA studies, patient is unable to stay still and complete MRI. Patient is hypoxic, does not has any focal deficit, has underlying dementia, will not change the management. Prognosis is guarded.
--- NOTE | 2017-10-14 14:29 | CP.PCM.PN ---
Subjective - Date & Time of Evaluation Date of Evaluation: 10/14/17 Time of Evaluation: 14:28 - Subjective Subjective: Follow up Nephrology Consultation: Assessment: stable Acute Kidney Injury (N17.9) likely dehydration, pre--renal state and ATN Hypernatremia: improved HTN, possible pneumonia, COPD Anemia hypercapnic respi failure likely has underlying CKD ? stage (echogenic kidneys on sono) secondary hyperparathyroidism, hyperphosphatemia Plan No acute need for renal replacement therapy at this time. Hypertension control with meds as ordered. Patient not on ACEI/ARB due to AVERY. started on norvasc 5 mg/day, increased to 10 mg/day Monitor Input/Output, daily weights and renal function with basic metabolic panel continue with free water supplements started oral iron, MVI, calcitriol q 2 day, phos binders and dose of aransep Dose meds/antibiotics for reduced GFR. Avoid fleets enema/magnesium based laxatives. Avoid nephrotoxins/NSAIDs/ iodinated contrast (unless needed emergently) Glycemic control Further work up/management as per primary team pt being planned for d/c to LTAC. Thanks for allowing me to participate in care of your patient. Will follow patient with you. Please call if any Qs. d/w team Dr Hammad Feldman Office: [phone] Chief Complaint; Unable Source of Info: medical chart review HPI: Pt is a 77 y/o F with hx of hypertension, asthma, parkinson disease came with AMS, decreased oral intake, CO2 retention AVERY and hypernatremia hence renal consulted. pt unable to provide any hx No known recent iodinated contrast exposure. No obvious episodes of low BP. ROS: unable. s/p extubation 10/13/17 Physical Examination: General Appearance: elderly appearing female Vitals reviewed and noted as below Head; Atraumatic, normocephalic ENT: normal mucosa EYES: Pupils are equal, round and reactive to light accommodation. Eye muscles and extraocular movement intact. Sclera is anicteric. Neck; supple no lymphadenopathy, no thyromegaly or bruit Lungs: normal respiratory rate/effort. Breath sounds bilateral clear Heart: Normal rate. s1s2 normal. No rub or gallop. Extremities: no edema. No varicose veins Neurological: Patient is awake follows commands but not much verbal/ communicative Skin: Warm and dry. Normal turgor. No rash. Palpitation: Normal elasticity for age Abdomen: Abdomen is soft. Bowel sounds +. There is no abdominal tenderness, no guarding/rigidity no organomegaly. has myoclonus jerks Psych:unable MSK: no joint tenderness or swelling. Digits and nails normal, no deformity : kidney or bladder not palpable Labs/imaging/EKG reviewed. Past medical history, past surgical history, family history, social history, allergy reviewed and noted as below family hx: unable to obtain renal sono; echogenic kidneys Objective - Vital Signs/Intake and Output Vital Signs (last 24 hours): Temp Pulse Resp BP Pulse Ox 98.3 F 80 16 158/96 H 100 10/14/17 08:00 10/14/17 11:20 10/14/17 11:20 10/14/17 11:00 10/14/17 11:20 Intake and Output: 10/14/17 10/14/17 06:59 18:59 Output Total 800 Balance -800 - Medications Medications: Current Medications Acetaminophen (Tylenol 325mg Tab) 650 mg PO Q4H PRN PRN Reason: Fever >100.4 F Albuterol/Ipratropium (Duoneb 3 Mg/0.5 Mg (3 Ml) Ud) 3 ml IH [id number] [facility] Last Admin: 10/14/17 13:21 Dose: 3 ml Amlodipine Besylate (Norvasc) 10 mg PO DAILY [facility] Last Admin: 10/14/17 10:00 Dose: 10 mg Calcitriol (Rocaltrol) 0.25 mcg PO Q2D [facility] Last Admin: 10/12/17 17:22 Dose: 0.25 mcg Calcium Acetate (Phoslo) 667 mg PO WM [facility] Last Admin: 10/14/17 14:08 Dose: 667 mg Famotidine (Pepcid) 20 mg IVP DAILY [facility] Last Admin: 10/14/17 10:01 Dose: 20 mg Ferrous Gluconate (Fergon) 324 mg PO TID [facility] Last Admin: 10/14/17 14:07 Dose: 324 mg Heparin Sodium (Porcine) (Heparin) 5,000 units SC Q8 [facility] PRN Reason: Protocol Last Admin: 10/14/17 14:08 Dose: 5,000 units Hydralazine HCl (Apresoline) 10 mg IVP Q8H PRN PRN Reason: Systolic Blood Pressure Last Admin: 10/13/17 11:34 Dose: 10 mg Methylprednisolone (Solu-Medrol) 10 mg IVP Q12 [facility] Last Admin: 10/14/17 10:01 Dose: 10 mg Vitamin B Complex/Vit C/Folic Acid (Nephro-Milagro) 1 tab PO 0800 [facility] Last Admin: 10/14/17 10:00 Dose: 1 tab - Labs Labs: 10/14/17 06:00 10/14/17 06:00 PT 10.7 SECONDS (9.4-12.5) 10/07/17 23:39 INR 0.94 (0.93-1.08) 10/07/17 23:39 APTT 34.5 Seconds (25.1-36.5) 10/07/17 23:39
[2017-10-15] MEDS: Albuterol-Ipratrop 3 mg / 0.5 (3 ml) UD IH SCH ×4 (00:14→21:10)
[2017-10-15 05:12] LABS: ARTERIAL BLOOD GAS HCO3 27.7 mmol/L (21-28); ARTERIAL BLOOD GAS HEMOGLOBIN 9.9 g/dL (11.7-17.4); ARTERIAL BLOOD GAS O2 CAPACITY 13.4 mL/dl (16-24); ARTERIAL BLOOD GAS O2 CONTENT 13.1 ML/dl (15-23); ARTERIAL BLOOD GAS O2 SAT 97.4 % (95-98); ARTERIAL BLOOD GAS PCO2 48 mm/Hg (35-45); ARTERIAL BLOOD GAS PH 7.37 (7.35-7.45); ARTERIAL BLOOD GAS TCO2 29.2 mmol.L (22-28)
[2017-10-15 06:28] LABS: BASO # 0.01 K/mm3 (0.0-2.0); BASO % 0.1 % (0.0-3.0); EOS % 0.1 % (1.5-5.0); GRAN # 8.02 (1.4-6.5); GRAN % 84.3 % (50.0-68.0); HEMOGLOBIN 9.6 g/dL (12.0-16.0); LYMPH # 0.8 (1.2-3.4); LYMPH % 8.6 % (22.0-35.0); MEAN CELL VOLUME 94.9 fl (80.0-105.0); MEAN CORPUSCULAR HEMOGLOBIN 28.6 pg (25.0-35.0); MEAN CORPUSCULAR HGB CONC 30.1 g/dl (31.0-37.0); MONO # 0.7 (0.1-0.6); MONO % 6.9 % (1.0-6.0); RBC 3.36 10^6/uL (3.5-6.1); WHITE BLOOD COUNT 9.5 10^3/ul (4.5-11.0)
[2017-10-15 07:01] LABS: ALB/GLOB RATIO 1.2 (1.1-1.8); ALBUMIN 3.8 g/dL (3.0-4.8); CALCIUM 11.4 mg/dL (8.4-10.5); MAGNESIUM 2.5 mg/dL (1.7-2.2)
[2017-10-15] MEDS: Multivitamin Vitamin B Complex (Nephro-Vite) Tab PO SCH (08:13)
--- NOTE | 2017-10-15 09:12 | RAD ---
HISTORY: intubated COMPARISON: 10/14/2017. FINDINGS: The left PICC line terminates in the SVC LUNGS: The lungs are well inflated. There is airspace disease in the left lateral lung. The right lung is clear. PLEURA: Small left pleural effusion, no pneumothorax apparent. CARDIOVASCULAR: The cardiomediastinal silhouette stable. OSSEOUS STRUCTURES: No significant abnormalities. VISUALIZED UPPER ABDOMEN: Normal. OTHER FINDINGS: None. IMPRESSION: Suspect left lower lobe pneumonia and small left pleural effusion. Stable position of left PICC line.
[2017-10-15] MEDS ORDERED: Sodium Chloride 0.45% 1,000 ML IV SCH ×2 (09:45→11:33)
[2017-10-15] MEDS: MethylPREDNISolone 40 mg Vial IVP SCH (09:50)
--- NOTE | 2017-10-15 13:20 | CP.PCM.PN ---
<Ember Magaña - Last Filed: 10/15/17 13:09> Subjective - Date & Time of Evaluation Date of Evaluation: 10/15/17 Time of Evaluation: 13:09 - Subjective Subjective: Ember Magaña, PGY1, Medicine Progress note for Dr Langley: Patient seen and examined at bedside. No acute events overnight. Pt alert, awake follows simple commands, nods to questions, comfortable in bed. Nonverbal (for most part, pt's baseline as per family). Denies pain. Objective - Vital Signs/Intake and Output Vital Signs (last 24 hours): Temp Pulse Resp BP Pulse Ox 97.9 F 90 28 H 187/118 H 99 10/14/17 16:00 10/15/17 04:04 10/14/17 18:20 10/15/17 08:55 10/14/17 18:20 - Medications Medications: Current Medications Acetaminophen (Tylenol 325mg Tab) 650 mg PO Q4H PRN PRN Reason: Fever >100.4 F Albuterol/Ipratropium (Duoneb 3 Mg/0.5 Mg (3 Ml) Ud) 3 ml IH [id number] [facility] Last Admin: 10/15/17 07:32 Dose: 3 ml Amlodipine Besylate (Norvasc) 10 mg PO DAILY [facility] Last Admin: 10/15/17 08:55 Dose: 10 mg Famotidine (Pepcid) 20 mg PO DAILY [facility] Ferrous Gluconate (Fergon) 324 mg PO TID [facility] Last Admin: 10/15/17 09:51 Dose: 324 mg Heparin Sodium (Porcine) (Heparin) 5,000 units SC Q8 [facility] PRN Reason: Protocol Last Admin: 10/15/17 05:58 Dose: 5,000 units Hydralazine HCl (Apresoline) 10 mg IVP Q8H PRN PRN Reason: Systolic Blood Pressure Last Admin: 10/15/17 04:04 Dose: 10 mg Sodium Chloride (Sodium Chloride 0.45%) 1,000 mls @ 45 mls/hr IV [id number] [facility] Stop: 10/15/17 19:46 Prednisone (Prednisone Tab) 40 mg PO DAILY [facility] Stop: 10/16/17 10:01 Sevelamer HCl (Renagel) 800 mg PO TID [facility] Last Admin: 01/25/18 09:50 Dose: 800 mg Vitamin B Complex/Vit C/Folic Acid (Nephro-Milagro) 1 tab PO 0800 [facility] Last Admin: 10/15/17 08:13 Dose: 1 tab - Labs Labs: 10/15/17 06:15 10/15/17 06:15 PT 10.7 SECONDS (9.4-12.5) 10/07/17 23:39 INR 0.94 (0.93-1.08) 10/07/17 23:39 APTT 34.5 Seconds (25.1-36.5) 10/07/17 23:39 - Additional Findings Additional findings: - Constitutional Appears: Non-toxic, No Acute Distress, Older Than Stated Age - Head Exam Head Exam: ATRAUMATIC, NORMOCEPHALIC - Eye Exam Eye Exam: EOMI, Normal appearance, PERRL. absent: Conjunctival injection, Scleral icterus Pupil Exam: PERRL - ENT Exam ENT Exam: Mucous Membranes Moist - Neck Exam Neck Exam: Full ROM - Respiratory Exam Respiratory Exam: Clear to Ausculation Bilateral. absent: Accessory Muscle Use , Chest Wall Tenderness, Rhonchi, Wheezes, Respiratory Distress - Cardiovascular Exam Cardiovascular Exam: RRR, +S1, +S2. absent: Murmur - Extremities Exam Extremities Exam: Normal Inspection. absent: Calf Tenderness, Pedal Edema - Back Exam Back Exam: NORMAL INSPECTION. absent: CVA tenderness (L), CVA tenderness (R) - Neurological Exam Neurological Exam: Alert, Awake Neuro motor strength exam: Left Upper Extremity: 5, Right Upper Extremity: 5, Left Lower Extremity: 5, Right Lower Extremity: 5 - Psychiatric Exam Psychiatric exam: Normal Affect - Skin Skin Exam: Dry, Normal Color, Warm Assessment and Plan - Assessment and Plan (Free Text) Assessment: 77 year old female with PMH HTN, asthma, Parkinson's?, admitted for AMS, failure to thrive, AVERY, hypernatremia, found to be in respiratory distress s/p extubation 10/13, on NC. Pt awake, alert, responds to some questions (baseline as per family). Speech/swallow eval recommended pureed, nectar thin liquids. Will obtain PT eval and discuss with family regarding fdc care: AMS, resolved: - 2/2 hypernatremia vs worsening dementia vs delirium - baseline patient is unable to complete ADLs and unable to ambulate by her self , AOx2 - CT head: 3mm round hyperdensity in the left temporal lobe inferiorly and cannot exclude a tiny acute intraparenchymal bleed, repeat showed similar finding - MRI brain pending - TSH normal, RPR NonReactive, Vit B12 >1000, folate >20 - head of bed > 45 - echo showed EF 59%, mild concentric left vent function - Blood cultures negative, urine cultures negative - neurology consulted. Appreciate recs. Failure to thrive: - Dehydrated, no oral intake over several days prior to arrival to ED. - Speech and swallow eval recommends pureed, nectar thin liquids. Started diet. Cont to monitor. - Will discuss with family regarding plan of care. - Hospice eval obtained. f/u recs. AVERY - Likely secondary to dehydration vs ATN; has underlying CKD - FENa was 2.5, intrinsic - creatinine 3.1, improved since admission - Nephro on board. appreciate recs. - Urine culture negative Hypercapneic Respiratory acidosis, resolved: - due to asthma - s/p extubation, on 2L NC - Discontinued Solumedrol. Started Prednisone tapering dose - 40 mg daily D1/2. - S/p 7 days of IV Rocephin and Zithromax - Downgraded to remote tele Hypernatremia - resolved - continue free water flushes - Hold 1/2NS - Nephro consulted. appreciate recs. Hyperkalemia: - Cont to monitor, correct as needed. Anemia - multi factorial - iron is wnl - vitamin B12 greater then 1000 - folate wnl - Nephro on board. Appreciate recs. Erythropoetin, iron sulfate and Vitamin B complex recommended. - continue to monitor Will check for home O2 use. Prophylaxis Protonix heparin Sq Dispo: No LTAC due to insurance issues. Lives with daughter in [place]. Was visiting son in [place]. Discussed with Dr Langley. Ember Magaña, PGY1 <Kathy Langley - Last Filed: 10/17/17 14:21> Objective - Vital Signs/Intake and Output Vital Signs (last 24 hours): Temp Pulse Resp BP Pulse Ox 98.0 F 86 70 H 105/65 90 L 10/15/17 12:00 10/17/17 06:56 10/16/17 17:50 10/17/17 11:20 10/16/17 17:50 Intake and Output: 10/17/17 10/17/17 06:59 18:59 Intake Total 120 Balance 120 - Medications Medications: Current Medications Acetaminophen (Tylenol 325mg Tab) 650 mg PO Q4H PRN PRN Reason: Fever >100.4 F Albuterol/Ipratropium (Duoneb 3 Mg/0.5 Mg (3 Ml) Ud) 3 ml IH [id number] [facility] Last Admin: 10/17/17 07:24 Dose: 3 ml Amlodipine Besylate (Norvasc) 10 mg PO DAILY [facility] Last Admin: 10/17/17 11:20 Dose: Not Given Benztropine Mesylate (Cogentin) 1 mg PO BID [facility] Last Admin: 10/17/17 11:10 Dose: 1 mg Cinacalcet (Sensipar) 30 mg PO DAILY [facility] Stop: 10/18/17 10:01 Last Admin: 10/17/17 11:10 Dose: 30 mg Famotidine (Pepcid) 20 mg PO DAILY [facility] Last Admin: 10/17/17 11:10 Dose: 20 mg Ferrous Gluconate (Fergon) 324 mg PO TID [facility] Last Admin: 10/17/17 13:14 Dose: 324 mg Hydralazine HCl (Apresoline) 10 mg IVP Q8H PRN PRN Reason: Systolic Blood Pressure Last Admin: 10/17/17 06:56 Dose: 10 mg Hydralazine HCl (Apresoline) 100 mg PO BID [facility] Last Admin: 10/17/17 11:19 Dose: Not Given Dextrose (Dextrose 5% In Water 1000 Ml) 1,000 mls @ 50 mls/hr IV .Q20H [facility] Last Admin: 10/17/17 13:19 Dose: 50 mls/hr Metoprolol Succinate (Toprol Xl) 37.5 mg PO DAILY [facility] Last Admin: 10/17/17 11:21 Dose: Not Given Prednisone (Prednisone Tab) 30 mg PO DAILY [facility] Sevelamer HCl (Renagel) 800 mg PO TID [facility] Last Admin: 10/17/17 13:15 Dose: 800 mg Vitamin B Complex/Vit C/Folic Acid (Nephro-Milagro) 1 tab PO 0800 [facility] Last Admin: 10/17/17 11:10 Dose: 1 tab - Labs Labs: 10/17/17 08:50 10/17/17 08:50 PT 10.7 SECONDS (9.4-12.5) 10/07/17 23:39 INR 0.94 (0.93-1.08) 10/07/17 23:39 APTT 34.5 Seconds (25.1-36.5) 10/07/17 23:39 Attending/Attestation - Attestation I have personally seen and examined this patient.: Yes I have fully participated in the care of the patient.: Yes I have reviewed all pertinent clinical information, including history, physical exam and plan: Yes Notes (Text): 10/17/17 14:20 Patient was seen and examined with medical supervisor. 77 year old female with past medical history of hypertension and asthma /COPD was admitted with altered mental status and failure to thrive. She was found to have severe hypernatremia and acute on chronic renal failure. She also was intubated for hypercapnic Resp Failure and was admitted to the ICU.Patient is SP extubation.Hypoxia is improving.Steroid can be changed to oral. Hypernatremia is improving. Nephrology is following. Creatinine also has improved from 4.9 to 3.1and is stable; likely patient has underlying stage IV CKD. CT head showed 3 mm hyperdensity in the left temporal lobe. Neurology is following and ordered for MRI/MRA studies, patient is unable to stay still and complete MRI. Patient is hypoxic, does not has any focal deficit, has underlying dementia, will not change the management. Prognosis is guarded.
--- NOTE | 2017-10-15 13:26 | CP.PCM.PN ---
Subjective - Date & Time of Evaluation Date of Evaluation: 10/15/17 Time of Evaluation: 13:23 - Subjective Subjective: ms. Sylvester was seen and examined at the bedside in ICU. She is alert, responsive to all stimuli but unable to states person, place, and time. She is able to follow simple commands raising her hand lifting her bilateral lower extremities. She is able to tolerate PO intake with no s/s aspiration. There was no untoward events overnight. Objective - Vital Signs/Intake and Output Vital Signs (last 24 hours): Temp Pulse Resp BP Pulse Ox 97.9 F 90 28 H 187/118 H 99 10/14/17 16:00 10/15/17 04:04 10/14/17 18:20 10/15/17 08:55 10/14/17 18:20 - Medications Medications: Current Medications Acetaminophen (Tylenol 325mg Tab) 650 mg PO Q4H PRN PRN Reason: Fever >100.4 F Albuterol/Ipratropium (Duoneb 3 Mg/0.5 Mg (3 Ml) Ud) 3 ml IH [id number] [facility] Last Admin: 10/15/17 07:32 Dose: 3 ml Amlodipine Besylate (Norvasc) 10 mg PO DAILY [facility] Last Admin: 10/15/17 08:55 Dose: 10 mg Famotidine (Pepcid) 20 mg PO DAILY [facility] Ferrous Gluconate (Fergon) 324 mg PO TID [facility] Last Admin: 10/15/17 09:51 Dose: 324 mg Heparin Sodium (Porcine) (Heparin) 5,000 units SC Q8 DAVID PRN Reason: Protocol Last Admin: 10/15/17 05:58 Dose: 5,000 units Hydralazine HCl (Apresoline) 10 mg IVP Q8H PRN PRN Reason: Systolic Blood Pressure Last Admin: 10/15/17 04:04 Dose: 10 mg Sodium Chloride (Sodium Chloride 0.45%) 1,000 mls @ 45 mls/hr IV .[id number] [facility] Stop: 10/15/17 19:46 Prednisone (Prednisone Tab) 40 mg PO DAILY [facility] Stop: 10/16/17 10:01 Sevelamer HCl (Renagel) 800 mg PO TID [facility] Last Admin: 10/15/17 09:50 Dose: 800 mg Vitamin B Complex/Vit C/Folic Acid (Nephro-Milagro) 1 tab PO 0800 [facility] Last Admin: 10/15/17 08:13 Dose: 1 tab - Labs Labs: 10/15/17 06:15 10/15/17 06:15 PT 10.7 SECONDS (9.4-12.5) 10/07/17 23:39 INR 0.94 (0.93-1.08) 10/07/17 23:39 APTT 34.5 Seconds (25.1-36.5) 10/07/17 23:39 - Constitutional Appears: No Acute Distress - Head Exam Head Exam: NORMAL INSPECTION - Neurological Exam Neurological Exam: Alert, Awake Neuro motor strength exam: Left Upper Extremity: 3, Right Upper Extremity: 3, Left Lower Extremity: 3, Right Lower Extremity: 3 Additional comments: Neurological unchanged from previous examination. Assessment and Plan (1) Abnormal CT scan, head Assessment & Plan: Case discussed with Dr. Martinez, recommend MRI of the brain Status: Acute (2) Toxic metabolic encephalopathy Assessment & Plan: Case discussed with Dr. martinez, continue all current medical regimen, treat any underlying abnormality in her electrolytes. Status: Acute
--- NOTE | 2017-10-15 14:22 | CP.PCM.PN ---
Subjective - Date & Time of Evaluation Date of Evaluation: 10/15/17 Time of Evaluation: 14:19 - Subjective Subjective: Follow up Nephrology Consultation: Assessment: stable Acute Kidney Injury (N17.9) likely dehydration, pre--renal state and ATN Hypernatremia: improved HTN, possible pneumonia, COPD Anemia hypercapnic respi failure likely has underlying CKD ? stage (echogenic kidneys on sono) secondary hyperparathyroidism, hyperphosphatemia Hypercalcemia Plan No acute need for renal replacement therapy at this time. Hypertension control with meds as ordered. Patient not on ACEI/ARB due to AVERY. norvasc 10 mg/day, also added hydralazine. Monitor Input/Output, daily weights and renal function with basic metabolic panel continue with free water supplements started oral iron, MVI, and dose of aransep 10/12/17 d/c phoslo and calcitriol. started renagel and 0.45% saline 1 L today Dose meds/antibiotics for reduced GFR. Avoid fleets enema/magnesium based laxatives. Avoid nephrotoxins/NSAIDs/ iodinated contrast (unless needed emergently) Glycemic control Further work up/management as per primary team pt being planned for d/c to LTAC. Thanks for allowing me to participate in care of your patient. Will follow patient with you. Please call if any Qs. d/w family about current renal function and likely need for dialysis in near future. Dr Hammad Feldman Office: [phone] Chief Complaint; Unable Source of Info: medical chart review HPI: Pt is a 77 y/o F with hx of hypertension, asthma, parkinson disease came with AMS, decreased oral intake, CO2 retention AVERY and hypernatremia hence renal consulted. pt unable to provide any hx No known recent iodinated contrast exposure. No obvious episodes of low BP. ROS: unable. s/p extubation 10/13/17 Physical Examination: General Appearance: elderly appearing female Vitals reviewed and noted as below Head; Atraumatic, normocephalic ENT: normal mucosa EYES: Pupils are equal, round and reactive to light accommodation. Eye muscles and extraocular movement intact. Sclera is anicteric. Neck; supple no lymphadenopathy, no thyromegaly or bruit Lungs: normal respiratory rate/effort. Breath sounds bilateral clear Heart: Normal rate. s1s2 normal. No rub or gallop. Extremities: no edema. No varicose veins Neurological: Patient is awake follows commands but not much verbal/ communicative. having involuntary movements Skin: Warm and dry. Normal turgor. No rash. Palpitation: Normal elasticity for age Abdomen: Abdomen is soft. Bowel sounds +. There is no abdominal tenderness, no guarding/rigidity no organomegaly. has myoclonus jerks Psych:unable MSK: no joint tenderness or swelling. Digits and nails normal, no deformity : kidney or bladder not palpable Labs/imaging/EKG reviewed. Past medical history, past surgical history, family history, social history, allergy reviewed and noted as below family hx: unable to obtain renal sono; echogenic kidneys Objective - Vital Signs/Intake and Output Vital Signs (last 24 hours): Temp Pulse Resp BP Pulse Ox 98.0 F 108 H 20 161/99 H 94 L 10/15/17 12:00 10/15/17 13:20 10/15/17 13:20 10/15/17 12:00 10/15/17 13:20 - Medications Medications: Current Medications Acetaminophen (Tylenol 325mg Tab) 650 mg PO Q4H PRN PRN Reason: Fever >100.4 F Albuterol/Ipratropium (Duoneb 3 Mg/0.5 Mg (3 Ml) Ud) 3 ml IH [id number] [facility] Last Admin: 10/15/17 13:40 Dose: 3 ml Amlodipine Besylate (Norvasc) 10 mg PO DAILY [facility] Last Admin: 10/15/17 08:55 Dose: 10 mg Famotidine (Pepcid) 20 mg PO DAILY [facility] Ferrous Gluconate (Fergon) 324 mg PO TID [facility] Last Admin: 10/15/17 09:51 Dose: 324 mg Heparin Sodium (Porcine) (Heparin) 5,000 units SC Q8 DAVID PRN Reason: Protocol Last Admin: 10/15/17 05:58 Dose: 5,000 units Hydralazine HCl (Apresoline) 10 mg IVP Q8H PRN PRN Reason: Systolic Blood Pressure Last Admin: 10/15/17 04:04 Dose: 10 mg Sodium Chloride (Sodium Chloride 0.45%) 1,000 mls @ 45 mls/hr IV [id number] [facility] Stop: 10/15/17 19:46 Prednisone (Prednisone Tab) 40 mg PO DAILY [facility] Stop: 10/16/17 10:01 Sevelamer HCl (Renagel) 800 mg PO TID [facility] Last Admin: 10/15/17 09:50 Dose: 800 mg Vitamin B Complex/Vit C/Folic Acid (Nephro-Milagro) 1 tab PO 0800 [facility] Last Admin: 10/15/17 08:13 Dose: 1 tab - Labs Labs: 10/15/17 06:15 10/15/17 06:15 PT 10.7 SECONDS (9.4-12.5) 10/07/17 23:39 INR 0.94 (0.93-1.08) 10/07/17 23:39 APTT 34.5 Seconds (25.1-36.5) 10/07/17 23:39
[2017-10-16] MEDS: Albuterol-Ipratrop 3 mg / 0.5 (3 ml) UD IH SCH ×4 (01:51→21:10)
--- NOTE | 2017-10-16 06:30 | CP.PCM.PN ---
Subjective - Date & Time of Evaluation Date of Evaluation: 10/16/17 Time of Evaluation: 06:26 - Subjective Subjective: Ms. Sylvester was seen and examined at the bedside in ICU. She is awake, utter few words, but not able to answer questions appropriately. She does not either follow commands. She has the involuntary movements of her head. She moves her bilateral upper and lower extremities spontaneously. She has bilateral SCD's. There was not untoward events overnight. Objective - Vital Signs/Intake and Output Vital Signs (last 24 hours): Temp Pulse Resp BP Pulse Ox 98.0 F 87 75 H 164/99 H 97 10/15/17 12:00 10/16/17 06:00 10/16/17 06:00 10/16/17 04:00 10/16/17 06:00 Intake and Output: 10/15/17 10/16/17 18:59 06:59 Intake Total 760 Output Total 1200 Balance -440 - Medications Medications: Current Medications Acetaminophen (Tylenol 325mg Tab) 650 mg PO Q4H PRN PRN Reason: Fever >100.4 F Albuterol/Ipratropium (Duoneb 3 Mg/0.5 Mg (3 Ml) Ud) 3 ml IH [id number] [facility] Last Admin: 10/16/17 01:51 Dose: 3 ml Amlodipine Besylate (Norvasc) 10 mg PO DAILY [facility] Last Admin: 10/15/17 08:55 Dose: 10 mg Famotidine (Pepcid) 20 mg PO DAILY [facility] Ferrous Gluconate (Fergon) 324 mg PO TID [facility] Last Admin: 10/15/17 17:48 Dose: 324 mg Heparin Sodium (Porcine) (Heparin) 5,000 units SC Q8 DAVID PRN Reason: Protocol Last Admin: 10/16/17 05:23 Dose: 5,000 units Hydralazine HCl (Apresoline) 10 mg IVP Q8H PRN PRN Reason: Systolic Blood Pressure Last Admin: 10/15/17 04:04 Dose: 10 mg Hydralazine HCl (Apresoline) 50 mg PO BID [facility] Last Admin: 10/15/17 17:48 Dose: 50 mg Prednisone (Prednisone Tab) 40 mg PO DAILY [facility] Stop: 10/16/17 10:01 Last Admin: 10/15/17 15:58 Dose: 40 mg Sevelamer HCl (Renagel) 800 mg PO TID [facility] Last Admin: 10/15/17 17:49 Dose: 800 mg Vitamin B Complex/Vit C/Folic Acid (Nephro-Milagro) 1 tab PO 0800 [facility] Last Admin: 10/15/17 08:13 Dose: 1 tab - Labs Labs: 10/15/17 06:15 10/15/17 06:15 PT 10.7 SECONDS (9.4-12.5) 10/07/17 23:39 INR 0.94 (0.93-1.08) 10/07/17 23:39 APTT 34.5 Seconds (25.1-36.5) 10/07/17 23:39 - Constitutional Appears: No Acute Distress - Head Exam Head Exam: NORMAL INSPECTION - Neurological Exam Neurological Exam: Alert, Awake Neuro motor strength exam: Left Upper Extremity: 4, Right Upper Extremity: 4, Left Lower Extremity: 4, Right Lower Extremity: 4 Additional comments: She is able to move all extremities, but not able to follow simple commands. Assessment and Plan (1) Abnormal CT scan, head Assessment & Plan: Case discussed with Dr. Zamarripa, recommend MRI of the brain without contrast. Status: Acute (2) Toxic metabolic encephalopathy Assessment & Plan: Case discussed with Dr. Zamarripa, continue all current medical, occupational and speech regimens. Recommend PT eval and treat. Treat any abnormality in her electrolytes. Status: Acute
[2017-10-16 07:07] LABS: ALB/GLOB RATIO 1.2 (1.1-1.8); ALBUMIN 3.9 g/dL (3.0-4.8); CALCIUM 11.5 mg/dL (8.4-10.5); MAGNESIUM 2.3 mg/dL (1.7-2.2)
[2017-10-16 07:11] LABS: BASO # 0.01 K/mm3 (0.0-2.0); BASO % 0.1 % (0.0-3.0); GRAN # 7.13 (1.4-6.5); GRAN % 79.4 % (50.0-68.0); HEMOGLOBIN 9.7 g/dL (12.0-16.0); MEAN CELL VOLUME 94.5 fl (80.0-105.0); MEAN CORPUSCULAR HEMOGLOBIN 28.3 pg (25.0-35.0); MEAN CORPUSCULAR HGB CONC 29.9 g/dl (31.0-37.0); MONO # 0.9 (0.1-0.6); MONO % 9.5 % (1.0-6.0); RBC 3.43 10^6/uL (3.5-6.1); RED CELL DISTRIBUTION WIDTH 13.9 % (11.5-14.5)
[2017-10-16] MEDS: Multivitamin Vitamin B Complex (Nephro-Vite) Tab PO SCH (09:01)
--- NOTE | 2017-10-16 09:44 | CP.PCM.PN ---
<Ember Magaña - Last Filed: 10/16/17 12:08> Subjective - Date & Time of Evaluation Date of Evaluation: 10/16/17 Time of Evaluation: 09:44 - Subjective Subjective: Ember Magaña, PGY1, Medicine Progress note for Dr Langley: Patient seen and examined at bedside. No acute events overnight. Pt alert, awake follows simple commands, nods to questions, comfortable in bed. Has continued extrapyramidal side effects. Denies pain. Objective - Vital Signs/Intake and Output Vital Signs (last 24 hours): Temp Pulse Resp BP Pulse Ox 98.0 F 91 H 75 H 167/104 H 97 10/15/17 12:00 10/16/17 08:40 10/16/17 06:00 10/16/17 09:02 10/16/17 06:00 - Medications Medications: Current Medications Acetaminophen (Tylenol 325mg Tab) 650 mg PO Q4H PRN PRN Reason: Fever >100.4 F Albuterol/Ipratropium (Duoneb 3 Mg/0.5 Mg (3 Ml) Ud) 3 ml IH [id number] [facility] Last Admin: 10/16/17 07:57 Dose: 3 ml Amlodipine Besylate (Norvasc) 10 mg PO DAILY [facility] Last Admin: 10/16/17 09:02 Dose: 10 mg Benztropine Mesylate (Cogentin) 1 mg PO BID [facility] Famotidine (Pepcid) 20 mg PO DAILY [facility] Last Admin: 10/16/17 09:02 Dose: 20 mg Ferrous Gluconate (Fergon) 324 mg PO TID [facility] Last Admin: 10/16/17 09:01 Dose: 324 mg Heparin Sodium (Porcine) (Heparin) 5,000 units SC Q8 DAVID PRN Reason: Protocol Last Admin: 10/16/17 05:23 Dose: 5,000 units Hydralazine HCl (Apresoline) 10 mg IVP Q8H PRN PRN Reason: Systolic Blood Pressure Last Admin: 10/16/17 08:40 Dose: 10 mg Hydralazine HCl (Apresoline) 50 mg PO BID [facility] Metoprolol Succinate (Toprol Xl) 25 mg PO BID [facility] Prednisone (Prednisone Tab) 40 mg PO DAILY [facility] Stop: 10/16/17 10:01 Last Admin: 10/16/17 09:02 Dose: 40 mg Sevelamer HCl (Renagel) 800 mg PO TID [facility] Last Admin: 10/16/17 09:02 Dose: 800 mg Vitamin B Complex/Vit C/Folic Acid (Nephro-Milagro) 1 tab PO 0800 [facility] Last Admin: 10/16/17 09:01 Dose: 1 tab - Labs Labs: 10/16/17 06:00 10/16/17 06:00 PT 10.7 SECONDS (9.4-12.5) 10/07/17 23:39 INR 0.94 (0.93-1.08) 10/07/17 23:39 APTT 34.5 Seconds (25.1-36.5) 10/07/17 23:39 - Additional Findings Additional findings: - Constitutional Appears: Non-toxic, No Acute Distress, Older Than Stated Age - Head Exam Head Exam: ATRAUMATIC, NORMOCEPHALIC - Eye Exam Eye Exam: EOMI, Normal appearance, PERRL. absent: Conjunctival injection, Scleral icterus Pupil Exam: PERRL - ENT Exam ENT Exam: Mucous Membranes Moist - Neck Exam Neck Exam: Full ROM - Respiratory Exam Respiratory Exam: Clear to Ausculation Bilateral. absent: Accessory Muscle Use , Chest Wall Tenderness, Rhonchi, Wheezes, Respiratory Distress - Cardiovascular Exam Cardiovascular Exam: RRR, +S1, +S2. absent: Murmur - Extremities Exam Extremities Exam: Normal Inspection. absent: Calf Tenderness, Pedal Edema - Back Exam Back Exam: NORMAL INSPECTION. absent: CVA tenderness (L), CVA tenderness (R) - Neurological Exam Neurological Exam: Alert, Awake Neuro motor strength exam: Left Upper Extremity: 5, Right Upper Extremity: 5, Left Lower Extremity: 5, Right Lower Extremity: 5 - Psychiatric Exam Psychiatric exam: Normal Affect - Skin Skin Exam: Dry, Normal Color, Warm Assessment and Plan - Assessment and Plan (Free Text) Assessment: 77 year old female with PMH HTN, asthma, Parkinson's?, admitted for AMS, failure to thrive, AVERY, hypernatremia, found to be in respiratory distress s/p extubation 10/13, on NC. Pt awake, alert, responds to some questions (baseline as per family). Speech/swallow eval recommended pureed, nectar thin liquids. PT eval recommends LTC or home with 24 hour care. 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 Appreciate recs. 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 Will cont to monitor. Failure to thrive: - Dehydrated, no oral intake over several days prior to arrival to ED. - Speech and swallow eval recommends pureed, nectar thin liquids. Started diet. Cont to monitor. - Will discuss with family regarding plan of care. - PT eval recommends LTC or nurse with 24 hour care - Hospice eval obtained. f/u recs. AVERY - Likely secondary to dehydration vs ATN; has underlying CKD - FENa was 2.5, intrinsic - creatinine 3.1, improved since admission - Nephro on board. appreciate recs. - Urine culture negative Hypercapneic Respiratory acidosis, resolved: - due to asthma - s/p extubation, on 2L NC - Discontinued Solumedrol. Started Prednisone tapering dose - 40 mg daily D1/2. - S/p 7 days of IV Rocephin and Zithromax - Downgraded to remote tele Hypernatremia - resolved - continue free water flushes - Hold 1/2NS - Nephro consulted. appreciate recs. Hyperkalemia: - Cont to monitor, correct as needed. Anemia - multi factorial - iron is wnl - vitamin B12 greater then 1000 - folate wnl - Nephro on board. Appreciate recs. Erythropoetin, iron sulfate and Vitamin B complex recommended. - continue to monitor Prophylaxis Protonix heparin Sq Dispo: No LTAC due to insurance issues. Lives with daughter in [place]. Was visiting son in [place]. Discussed with Dr Langley. Ember Magaña, PGY1 <Kathy Langley - Last Filed: 10/17/17 14:24> Objective - Vital Signs/Intake and Output Vital Signs (last 24 hours): Temp Pulse Resp BP Pulse Ox 98.0 F 86 70 H 105/65 90 L 10/15/17 12:00 10/17/17 06:56 10/16/17 17:50 10/17/17 11:20 10/16/17 17:50 Intake and Output: 10/17/17 10/17/17 06:59 18:59 Intake Total 120 Balance 120 - Medications Medications: Current Medications Acetaminophen (Tylenol 325mg Tab) 650 mg PO Q4H PRN PRN Reason: Fever >100.4 F Albuterol/Ipratropium (Duoneb 3 Mg/0.5 Mg (3 Ml) Ud) 3 ml IH [id number] [facility] Last Admin: 10/17/17 07:24 Dose: 3 ml Amlodipine Besylate (Norvasc) 10 mg PO DAILY [facility] Last Admin: 10/17/17 11:20 Dose: Not Given Benztropine Mesylate (Cogentin) 1 mg PO BID [facility] Last Admin: 10/17/17 11:10 Dose: 1 mg Cinacalcet (Sensipar) 30 mg PO DAILY [facility] Stop: 10/18/17 10:01 Last Admin: 10/17/17 11:10 Dose: 30 mg Famotidine (Pepcid) 20 mg PO DAILY [facility] Last Admin: 10/17/17 11:10 Dose: 20 mg Ferrous Gluconate (Fergon) 324 mg PO TID [facility] Last Admin: 10/17/17 13:14 Dose: 324 mg Hydralazine HCl (Apresoline) 10 mg IVP Q8H PRN PRN Reason: Systolic Blood Pressure Last Admin: 10/17/17 06:56 Dose: 10 mg Hydralazine HCl (Apresoline) 100 mg PO BID [facility] Last Admin: 10/17/17 11:19 Dose: Not Given Dextrose (Dextrose 5% In Water 1000 Ml) 1,000 mls @ 50 mls/hr IV .Q20H [facility] Last Admin: 10/17/17 13:19 Dose: 50 mls/hr Metoprolol Succinate (Toprol Xl) 37.5 mg PO DAILY [facility] Last Admin: 10/17/17 11:21 Dose: Not Given Prednisone (Prednisone Tab) 30 mg PO DAILY [facility] Sevelamer HCl (Renagel) 800 mg PO TID [facility] Last Admin: 10/17/17 13:15 Dose: 800 mg Vitamin B Complex/Vit C/Folic Acid (Nephro-Milagro) 1 tab PO 0800 [facility] Last Admin: 10/17/17 11:10 Dose: 1 tab - Labs Labs: 10/17/17 08:50 10/17/17 08:50 PT 10.7 SECONDS (9.4-12.5) 10/07/17 23:39 INR 0.94 (0.93-1.08) 10/07/17 23:39 APTT 34.5 Seconds (25.1-36.5) 10/07/17 23:39 Attending/Attestation - Attestation I have personally seen and examined this patient.: Yes I have fully participated in the care of the patient.: Yes I have reviewed all pertinent clinical information, including history, physical exam and plan: Yes Notes (Text): 10/17/17 14:23 Patient was seen and examined with medical center director. 77 year old female with past medical history of hypertension and asthma /COPD was admitted with altered mental status and failure to thrive. She was found to have severe hypernatremia and acute on chronic renal failure. She also was intubated for hypercapnic Resp Failure and was admitted to the ICU.Patient is SP extubation.Hypoxia is improving.Steroid can be changed to oral. Hypernatremia is improving. Nephrology is following. Creatinine also has improved from 4.9 to 3.1and is stable; likely patient has underlying stage IV CKD. Patient has extrapyramidal symptoms, will start on Cogentin and monitor. CT head showed 3 mm hyperdensity in the left temporal lobe. Neurology is following and ordered for MRI/MRA studies, patient is unable to stay still and complete MRI. Patient is hypoxic, does not has any focal deficit, has underlying dementia, Prognosis is guarded.
--- NOTE | 2017-10-16 10:19 | RAD ---
HISTORY: intubated COMPARISON: 10/15/2017. FINDINGS: The left PICC line terminates in the SVC. LUNGS: There is consolidation in the right lower lobe. The left lung is clear. PLEURA: No significant pleural effusion identified, no pneumothorax apparent. CARDIOVASCULAR: Stable. OSSEOUS STRUCTURES: No significant abnormalities. VISUALIZED UPPER ABDOMEN: Normal. OTHER FINDINGS: None. IMPRESSION: Right lower lobe consolidation. Follow-up to resolution is advised.
[2017-10-16] MEDS: Metoprolol Succinate 25 mg XL Tab PO SCH ×2 (11:09→17:15)
[2017-10-16] MEDS ORDERED: Sod Polystyrene Sulf 15 gm/60 ml Susp PO ONE (12:12)
--- NOTE | 2017-10-16 13:06 | CP.PCM.PN ---
Subjective - Date & Time of Evaluation Date of Evaluation: 10/16/17 Time of Evaluation: 13:04 - Subjective Subjective: Follow up Nephrology Consultation: Assessment: stable Acute Kidney Injury (N17.9) likely dehydration, pre--renal state and ATN Hypernatremia: improved HTN, possible pneumonia, COPD Anemia hypercapnic respi failure likely has underlying CKD ? stage (echogenic kidneys on sono) secondary hyperparathyroidism, hyperphosphatemia Hypercalcemia due to calcitriol +phoslo Plan No acute need for renal replacement therapy at this time. Hypertension control with meds as ordered. Patient not on ACEI/ARB due to AVERY. norvasc 10 mg/day, on hydralazine. can uptitrate hydralazine as needed. Monitor Input/Output, daily weights and renal function with basic metabolic panel continue with free water supplements started oral iron, MVI, and dose of aransep 10/12/17 d/c phoslo and calcitriol. started renagel a dose of kayexylate today sensipar for 3 days to help lower down Ca Dose meds/antibiotics for reduced GFR. Avoid fleets enema/magnesium based laxatives. Avoid nephrotoxins/NSAIDs/ iodinated contrast (unless needed emergently) Glycemic control Further work up/management as per primary team Thanks for allowing me to participate in care of your patient. Will follow patient with you. Please call if any Qs. had d/w family about current renal function and likely need for dialysis in near future. Dr Hammad Feldman Office: [phone] Chief Complaint; Unable Source of Info: medical chart review HPI: Pt is a 77 y/o F with hx of hypertension, asthma, parkinson disease came with AMS, decreased oral intake, CO2 retention AVERY and hypernatremia hence renal consulted. pt unable to provide any hx No known recent iodinated contrast exposure. No obvious episodes of low BP. ROS: unable. s/p extubation 10/13/17 Physical Examination: General Appearance: elderly appearing female Vitals reviewed and noted as below Head; Atraumatic, normocephalic ENT: normal mucosa EYES: Pupils are equal, round and reactive to light accommodation. Eye muscles and extraocular movement intact. Sclera is anicteric. Neck; supple no lymphadenopathy, no thyromegaly or bruit Lungs: normal respiratory rate/effort. Breath sounds bilateral clear Heart: Normal rate. s1s2 normal. No rub or gallop. Extremities: no edema. No varicose veins Neurological: Patient is awake follows commands but not much verbal/ communicative. having involuntary movements Skin: Warm and dry. Normal turgor. No rash. Palpitation: Normal elasticity for age Abdomen: Abdomen is soft. Bowel sounds +. There is no abdominal tenderness, no guarding/rigidity no organomegaly. has myoclonus jerks Psych:unable MSK: no joint tenderness or swelling. Digits and nails normal, no deformity : kidney or bladder not palpable Labs/imaging/EKG reviewed. Past medical history, past surgical history, family history, social history, allergy reviewed and noted as below family hx: unable to obtain renal sono; echogenic kidneys Objective - Vital Signs/Intake and Output Vital Signs (last 24 hours): Temp Pulse Resp BP Pulse Ox 98.0 F 104 H 75 H 152/80 H 97 10/15/17 12:00 10/16/17 11:09 10/16/17 06:00 10/16/17 11:09 10/16/17 06:00 - Medications Medications: Current Medications Acetaminophen (Tylenol 325mg Tab) 650 mg PO Q4H PRN PRN Reason: Fever >100.4 F Albuterol/Ipratropium (Duoneb 3 Mg/0.5 Mg (3 Ml) Ud) 3 ml IH [id number] [facility] Last Admin: 10/16/17 07:57 Dose: 3 ml Amlodipine Besylate (Norvasc) 10 mg PO DAILY [facility] Last Admin: 10/16/17 09:02 Dose: 10 mg Benztropine Mesylate (Cogentin) 1 mg PO BID [facility] Last Admin: 10/16/17 11:10 Dose: 1 mg Cinacalcet (Sensipar) 30 mg PO DAILY [facility] Stop: 10/18/17 10:01 Famotidine (Pepcid) 20 mg PO DAILY [facility] Last Admin: 10/16/17 09:02 Dose: 20 mg Ferrous Gluconate (Fergon) 324 mg PO TID [facility] Last Admin: 10/16/17 09:01 Dose: 324 mg Heparin Sodium (Porcine) (Heparin) 5,000 units SC Q8 [facility] PRN Reason: Protocol Last Admin: 10/16/17 05:23 Dose: 5,000 units Hydralazine HCl (Apresoline) 10 mg IVP Q8H PRN PRN Reason: Systolic Blood Pressure Last Admin: 10/16/17 08:40 Dose: 10 mg Hydralazine HCl (Apresoline) 50 mg PO BID [facility] Last Admin: 10/16/17 09:20 Dose: 50 mg Metoprolol Succinate (Toprol Xl) 25 mg PO BID [facility] Last Admin: 10/16/17 11:09 Dose: 25 mg Sevelamer HCl (Renagel) 800 mg PO TID [facility] Last Admin: 10/16/17 09:02 Dose: 800 mg Vitamin B Complex/Vit C/Folic Acid (Nephro-Milagro) 1 tab PO 0800 [facility] Last Admin: 10/16/17 09:01 Dose: 1 tab - Labs Labs: 10/16/17 06:00 10/16/17 06:00 PT 10.7 SECONDS (9.4-12.5) 10/07/17 23:39 INR 0.94 (0.93-1.08) 10/07/17 23:39 APTT 34.5 Seconds (25.1-36.5) 10/07/17 23:39
[2017-10-17] MEDS: Albuterol-Ipratrop 3 mg / 0.5 (3 ml) UD IH SCH ×3 (07:24→20:50)
--- NOTE | 2017-10-17 07:50 | CP.PCM.PN ---
<Dano Mccauley - Last Filed: 10/17/17 10:33> Subjective - Date & Time of Evaluation Date of Evaluation: 10/17/17 Time of Evaluation: 06:00 - Subjective Subjective: Patient seen and evaluated bedside. No acute issues overnight. Patient denies any complaints currently. Objective - Vital Signs/Intake and Output Vital Signs (last 24 hours): Temp Pulse Resp BP Pulse Ox 98.0 F 86 70 H 183/114 H 90 L 10/15/17 12:00 10/17/17 06:56 10/16/17 17:50 10/17/17 06:56 10/16/17 17:50 Intake and Output: 10/17/17 10/17/17 06:59 18:59 Intake Total 120 Balance 120 - Medications Medications: Current Medications Acetaminophen (Tylenol 325mg Tab) 650 mg PO Q4H PRN PRN Reason: Fever >100.4 F Albuterol/Ipratropium (Duoneb 3 Mg/0.5 Mg (3 Ml) Ud) 3 ml IH [id number] [facility] Last Admin: 10/17/17 07:24 Dose: 3 ml Amlodipine Besylate (Norvasc) 10 mg PO DAILY [facility] Last Admin: 10/16/17 09:02 Dose: 10 mg Benztropine Mesylate (Cogentin) 1 mg PO BID [facility] Last Admin: 10/16/17 17:15 Dose: 1 mg Cinacalcet (Sensipar) 30 mg PO DAILY [facility] Stop: 10/18/17 10:01 Last Admin: 10/16/17 13:03 Dose: 30 mg Famotidine (Pepcid) 20 mg PO DAILY [facility] Last Admin: 10/16/17 09:02 Dose: 20 mg Ferrous Gluconate (Fergon) 324 mg PO TID [facility] Last Admin: 10/16/17 17:16 Dose: 324 mg Hydralazine HCl (Apresoline) 10 mg IVP Q8H PRN PRN Reason: Systolic Blood Pressure Last Admin: 10/17/17 06:56 Dose: 10 mg Hydralazine HCl (Apresoline) 100 mg PO BID [facility] Metoprolol Succinate (Toprol Xl) 25 mg PO BID [facility] Last Admin: 10/16/17 17:15 Dose: 25 mg Sevelamer HCl (Renagel) 800 mg PO TID [facility] Last Admin: 10/16/17 17:15 Dose: 800 mg Vitamin B Complex/Vit C/Folic Acid (Nephro-Milagro) 1 tab PO 0800 [facility] Last Admin: 10/16/17 09:01 Dose: 1 tab - Labs Labs: 10/16/17 06:00 10/16/17 06:00 PT 10.7 SECONDS (9.4-12.5) 10/07/17 23:39 INR 0.94 (0.93-1.08) 10/07/17 23:39 APTT 34.5 Seconds (25.1-36.5) 10/07/17 23:39 - Constitutional Appears: Non-toxic, No Acute Distress - Eye Exam Eye Exam: Normal appearance - ENT Exam ENT Exam: Mucous Membranes Moist - Respiratory Exam Respiratory Exam: NORMAL BREATHING PATTERN - Cardiovascular Exam Cardiovascular Exam: REGULAR RHYTHM - Neurological Exam Neurological Exam: Alert, Awake Assessment and Plan - Assessment and Plan (Free Text) Assessment: 77 year old female with PMH HTN, asthma, Parkinson's?, admitted for AMS, failure to thrive, AVERY, hypernatremia, found to be in respiratory distress s/p extubation 10/13, on NC. Pt awake, alert, responds to some questions (baseline as per family). Speech/swallow eval recommended pureed, nectar thin liquids. PT eval recommends LTC or home with 24 hour care. Will discuss with family regarding alf care: Plan: AMS, resolved: - 2/2 hypernatremia vs worsening dementia vs delirium - baseline patient is unable to complete ADLs and unable to ambulate by her self , AOx2 - CT head: 3mm round hyperdensity in the left temporal lobe inferiorly and cannot exclude a tiny acute intraparenchymal bleed, repeat showed similar finding - MRI brain cancelled as pt is at her baseline - TSH normal, RPR NonReactive, Vit B12 >1000, folate >20 - head of bed > 45 - echo showed EF 59%, mild concentric left vent function - Blood cultures negative, urine cultures negative - neurology consulted. Appreciate recs. Extrapyramidal side effects: 2/2 intermediate card tender risperidone use - continue cogentin, symptoms improving Failure to thrive: - Dehydrated, no oral intake over several days prior to arrival to ED. - Speech and swallow eval recommends pureed, nectar thin liquids. Started diet. Cont to monitor. - Will discuss with family regarding plan of care. - PT eval recommends LTC or nurse with 24 hour care - Hospice eval obtained. f/u recs. AVERY - Likely secondary to dehydration vs ATN; has underlying CKD - FENa was 2.5, intrinsic - creatinine 3.2, improved since admission - Nephro on board. appreciate recs. - Urine culture negative Hypercapneic Respiratory acidosis, resolved: - due to asthma - s/p extubation, on 2L NC - Discontinued Solumedrol. Started Prednisone tapering dose - 30mg started tomorrow - S/p 7 days of IV Rocephin and Zithromax Hypernatremia - resolved - continue free water flushes - Hold 1/2NS - Nephro consulted. appreciate recs. Hyperkalemia-resolved - Cont to monitor, correct as needed. Anemia - multi factorial - iron is wnl - vitamin B12 greater then 1000 - folate wnl - Nephro on board. Appreciate recs. Erythropoetin, iron sulfate and Vitamin B complex recommended. - continue to monitor HTN -continue to monitor -Toprol XL 37.5 daily Prophylaxis Protonix heparin Sq Dispo: No LTAC due to insurance issues. Lives with daughter in [place]. Was visiting son in [place]. <Kathy Langley - Last Filed: 10/17/17 14:27> Objective - Vital Signs/Intake and Output Vital Signs (last 24 hours): Temp Pulse Resp BP Pulse Ox 98.0 F 86 70 H 105/65 90 L 10/15/17 12:00 10/17/17 06:56 10/16/17 17:50 10/17/17 11:20 10/16/17 17:50 Intake and Output: 10/17/17 10/17/17 06:59 18:59 Intake Total 120 Balance 120 - Medications Medications: Current Medications Acetaminophen (Tylenol 325mg Tab) 650 mg PO Q4H PRN PRN Reason: Fever >100.4 F Albuterol/Ipratropium (Duoneb 3 Mg/0.5 Mg (3 Ml) Ud) 3 ml IH [id number] [facility] Last Admin: 10/17/17 07:24 Dose: 3 ml Amlodipine Besylate (Norvasc) 10 mg PO DAILY [facility] Last Admin: 10/17/17 11:20 Dose: Not Given Benztropine Mesylate (Cogentin) 1 mg PO BID [facility] Last Admin: 10/17/17 11:10 Dose: 1 mg Cinacalcet (Sensipar) 30 mg PO DAILY [facility] Stop: 10/18/17 10:01 Last Admin: 10/17/17 11:10 Dose: 30 mg Famotidine (Pepcid) 20 mg PO DAILY [facility] Last Admin: 10/17/17 11:10 Dose: 20 mg Ferrous Gluconate (Fergon) 324 mg PO TID [facility] Last Admin: 10/17/17 13:14 Dose: 324 mg Hydralazine HCl (Apresoline) 10 mg IVP Q8H PRN PRN Reason: Systolic Blood Pressure Last Admin: 10/17/17 06:56 Dose: 10 mg Hydralazine HCl (Apresoline) 100 mg PO BID [facility] Last Admin: 10/17/17 11:19 Dose: Not Given Dextrose (Dextrose 5% In Water 1000 Ml) 1,000 mls @ 50 mls/hr IV .Q20H [facility] Last Admin: 10/17/17 13:19 Dose: 50 mls/hr Metoprolol Succinate (Toprol Xl) 37.5 mg PO DAILY [facility] Last Admin: 10/17/17 11:21 Dose: Not Given Prednisone (Prednisone Tab) 30 mg PO DAILY [facility] Sevelamer HCl (Renagel) 800 mg PO TID [facility] Last Admin: 10/17/17 13:15 Dose: 800 mg Vitamin B Complex/Vit C/Folic Acid (Nephro-Milagro) 1 tab PO 0800 [facility] Last Admin: 10/17/17 11:10 Dose: 1 tab - Labs Labs: 10/17/17 08:50 10/17/17 08:50 PT 10.7 SECONDS (9.4-12.5) 10/07/17 23:39 INR 0.94 (0.93-1.08) 10/07/17 23:39 APTT 34.5 Seconds (25.1-36.5) 10/07/17 23:39 Attending/Attestation - Attestation I have personally seen and examined this patient.: Yes I have fully participated in the care of the patient.: Yes I have reviewed all pertinent clinical information, including history, physical exam and plan: Yes Notes (Text): 01/27/18 14:25 Patient was seen and examined with medical scribe. 77 year old female with past medical history of hypertension and asthma /COPD was admitted with altered mental status and failure to thrive. She was found to have severe hypernatremia and acute on chronic renal failure. She also was intubated for hypercapnic Resp Failure and was admitted to the ICU.Patient is SP extubation.Hypoxia is improving.She is on Neb and oral prednisone Hypernatremia is improving. Nephrology is following. Creatinine also has improved from 4.9 to 3.2 (vaiable between 2.9 to 3.2)and is stable; likely patient has underlying stage IV CKD. CT head showed 3 mm hyperdensity in the left temporal lobe. Neurology is following and ordered for MRI/MRA studies, patient is unable to stay still and complete MRI. Patient is hypoxic, does not has any focal deficit, has underlying dementia, will not change the management. Prognosis is guarded.
[2017-10-17 09:14] LABS: CALCIUM 11.1 mg/dL (8.4-10.5)
[2017-10-17 09:17] LABS: HEMOGLOBIN 10.6 g/dL (12.0-16.0); MEAN CELL VOLUME 93.7 fl (80.0-105.0); MEAN CORPUSCULAR HEMOGLOBIN 29.2 pg (25.0-35.0); MEAN CORPUSCULAR HGB CONC 31.2 g/dl (31.0-37.0); MEAN PLATELET VOLUME 10.4 fl (7.0-11.0); RBC 3.63 10^6/uL (3.5-6.1); RED CELL DISTRIBUTION WIDTH 14.4 % (11.5-14.5)
--- NOTE | 2017-10-17 10:55 | CP.PCM.PN ---
Subjective - Date & Time of Evaluation Date of Evaluation: 10/17/17 Time of Evaluation: 10:53 - Subjective Subjective: Follow up Nephrology Consultation: Assessment: stable Acute Kidney Injury (N17.9) likely dehydration, pre--renal state and ATN Hypernatremia: improved HTN, possible pneumonia, COPD Anemia hypercapnic respi failure likely has underlying CKD ? stage (echogenic kidneys on sono) secondary hyperparathyroidism, hyperphosphatemia Hypercalcemia due to calcitriol +phoslo Plan No acute need for renal replacement therapy at this time. Hypertension control with meds as ordered. Patient not on ACEI/ARB due to AVERY. norvasc 10 mg/day, Increased hydralazine. Monitor Input/Output, daily weights and renal function with basic metabolic panel continue with free water supplements started oral iron, MVI, and dose of aransep 10/12/17 d/c phoslo and calcitriol. started renagel will keep low dose d5w IV to maintain hydration sensipar for 3 days to help lower down Ca Dose meds/antibiotics for reduced GFR. Avoid fleets enema/magnesium based laxatives. Avoid nephrotoxins/NSAIDs/ iodinated contrast (unless needed emergently) Glycemic control Further work up/management as per primary team Thanks for allowing me to participate in care of your patient. Will follow patient with you. Please call if any Qs. had d/w family about current renal function and likely need for dialysis in near future. Dr Hammad Feldman Office: [phone] Chief Complaint; Unable Source of Info: medical chart review HPI: Pt is a 77 y/o F with hx of hypertension, asthma, parkinson disease came with AMS, decreased oral intake, CO2 retention AVERY and hypernatremia hence renal consulted. pt unable to provide any hx No known recent iodinated contrast exposure. No obvious episodes of low BP. ROS: unable. s/p extubation 10/13/17 Physical Examination: General Appearance: elderly appearing female Vitals reviewed and noted as below Head; Atraumatic, normocephalic ENT: normal mucosa EYES: Pupils are equal, round and reactive to light accommodation. Eye muscles and extraocular movement intact. Sclera is anicteric. Neck; supple no lymphadenopathy, no thyromegaly or bruit Lungs: normal respiratory rate/effort. Breath sounds bilateral clear Heart: Normal rate. s1s2 normal. No rub or gallop. Extremities: no edema. No varicose veins Neurological: Patient is awake follows commands but not much verbal/ communicative. having involuntary movements Skin: Warm and dry. Normal turgor. No rash. Palpitation: Normal elasticity for age Abdomen: Abdomen is soft. Bowel sounds +. There is no abdominal tenderness, no guarding/rigidity no organomegaly. has myoclonus jerks Psych:unable MSK: no joint tenderness or swelling. Digits and nails normal, no deformity : kidney or bladder not palpable Labs/imaging/EKG reviewed. Past medical history, past surgical history, family history, social history, allergy reviewed and noted as below family hx: unable to obtain renal sono; echogenic kidneys Objective - Vital Signs/Intake and Output Vital Signs (last 24 hours): Temp Pulse Resp BP Pulse Ox 98.0 F 86 70 H 183/114 H 90 L 10/15/17 12:00 10/17/17 06:56 10/16/17 17:50 10/17/17 06:56 10/16/17 17:50 Intake and Output: 10/17/17 10/17/17 06:59 18:59 Intake Total 120 Balance 120 - Medications Medications: Current Medications Acetaminophen (Tylenol 325mg Tab) 650 mg PO Q4H PRN PRN Reason: Fever >100.4 F Albuterol/Ipratropium (Duoneb 3 Mg/0.5 Mg (3 Ml) Ud) 3 ml IH [id number] [facility] Last Admin: 10/17/17 07:24 Dose: 3 ml Amlodipine Besylate (Norvasc) 10 mg PO DAILY [facility] Last Admin: 10/16/17 09:02 Dose: 10 mg Benztropine Mesylate (Cogentin) 1 mg PO BID [facility] Last Admin: 10/16/17 17:15 Dose: 1 mg Cinacalcet (Sensipar) 30 mg PO DAILY [facility] Stop: 10/18/17 10:01 Last Admin: 10/16/17 13:03 Dose: 30 mg Famotidine (Pepcid) 20 mg PO DAILY [facility] Last Admin: 10/16/17 09:02 Dose: 20 mg Ferrous Gluconate (Fergon) 324 mg PO TID [facility] Last Admin: 10/16/17 17:16 Dose: 324 mg Hydralazine HCl (Apresoline) 10 mg IVP Q8H PRN PRN Reason: Systolic Blood Pressure Last Admin: 10/17/17 06:56 Dose: 10 mg Hydralazine HCl (Apresoline) 100 mg PO BID [facility] Dextrose (Dextrose 5% In Water 1000 Ml) 1,000 mls @ 50 mls/hr IV .Q20H [facility] Metoprolol Succinate (Toprol Xl) 37.5 mg PO DAILY [facility] Prednisone (Prednisone Tab) 30 mg PO DAILY [facility] Sevelamer HCl (Renagel) 800 mg PO TID [facility] Last Admin: 10/16/17 17:15 Dose: 800 mg Vitamin B Complex/Vit C/Folic Acid (Nephro-Milagro) 1 tab PO 0800 [facility] Last Admin: 10/16/17 09:01 Dose: 1 tab - Labs Labs: 10/17/17 08:50 10/17/17 08:50 PT 10.7 SECONDS (9.4-12.5) 10/07/17 23:39 INR 0.94 (0.93-1.08) 10/07/17 23:39 APTT 34.5 Seconds (25.1-36.5) 10/07/17 23:39
[2017-10-17] MEDS: Multivitamin Vitamin B Complex (Nephro-Vite) Tab PO SCH (11:10)
[2017-10-17] MEDS: Metoprolol Succinate 25 mg XL Tab PO SCH (11:21)
[2017-10-18] MEDS: Albuterol-Ipratrop 3 mg / 0.5 (3 ml) UD IH SCH ×6 (01:09→23:17)
[2017-10-18 10:05] LABS: ARTERIAL BLOOD GAS HCO3 30.5 mmol/L (21-28); ARTERIAL BLOOD GAS O2 SAT 99.9 % (95-98); ARTERIAL BLOOD GAS PCO2 46 mm/Hg (35-45); ARTERIAL BLOOD GAS PH 7.43 (7.35-7.45); ARTERIAL BLOOD GAS TCO2 31.9 mmol.L (22-28)
[2017-10-18] MEDS: Multivitamin Vitamin B Complex (Nephro-Vite) Tab PO SCH (10:26)
[2017-10-18] MEDS: Metoprolol Succinate 25 mg XL Tab PO SCH (10:29)
--- NOTE | 2017-10-18 10:43 | RAD ---
HISTORY: Resp distress COMPARISON: 10/16/2017. FINDINGS: The left PICC line terminates in the SVC. LUNGS: The lungs are well inflated. No focal consultation. Nodular opacity in the right upper lobe is likely artifactual and was not seen on the immediate prior chest radiograph from 10/16/2017. PLEURA: No significant pleural effusion identified, no pneumothorax apparent. CARDIOVASCULAR: There is persistent mild cardiomegaly. There is mild dilatation of the ascending aorta. OSSEOUS STRUCTURES: No significant abnormalities. VISUALIZED UPPER ABDOMEN: Normal. OTHER FINDINGS: None. IMPRESSION: 1. No active pulmonary disease. 2. Nodular opacity in the right upper lobe is likely artifactual however repeat PA radiograph is recommended for definitive evaluation.
[2017-10-18 13:25] LABS: BASO # 0.02 K/mm3 (0.0-2.0); BASO % 0.2 % (0.0-3.0); EOS # 0.2 (0.0-0.7); GRAN # 6.67 (1.4-6.5); HEMOGLOBIN 9.8 g/dL (12.0-16.0); LYMPH # 2.1 (1.2-3.4); LYMPH % 20.9 % (22.0-35.0); MEAN CELL VOLUME 94.7 fl (80.0-105.0); MEAN CORPUSCULAR HEMOGLOBIN 29.1 pg (25.0-35.0); MEAN CORPUSCULAR HGB CONC 30.7 g/dl (31.0-37.0); MEAN PLATELET VOLUME 9.9 fl (7.0-11.0); MONO # 0.9 (0.1-0.6); MONO % 8.9 % (1.0-6.0); RBC 3.37 10^6/uL (3.5-6.1); RED CELL DISTRIBUTION WIDTH 14.7 % (11.5-14.5); WHITE BLOOD COUNT 9.8 10^3/ul (4.5-11.0)
[2017-10-18 13:52] LABS: ALB/GLOB RATIO 1.2 (1.1-1.8); ALBUMIN 3.5 g/dL (3.0-4.8); CALCIUM 9.7 mg/dL (8.4-10.5)
--- NOTE | 2017-10-18 14:13 | CP.PCM.PN ---
Subjective - Date & Time of Evaluation Date of Evaluation: 10/18/17 Time of Evaluation: 14:12 - Subjective Subjective: Follow up Nephrology Consultation: Assessment: stable Acute Kidney Injury (N17.9) likely dehydration, pre--renal state and ATN Hypernatremia: improved HTN, possible pneumonia, COPD Anemia hypercapnic respi failure likely has underlying CKD ? stage (echogenic kidneys on sono) secondary hyperparathyroidism, hyperphosphatemia Hypercalcemia due to calcitriol +phoslo Plan No acute need for renal replacement therapy at this time. Hypertension control with meds as ordered. Patient not on ACEI/ARB due to AVERY. norvasc 10 mg/day, Increased hydralazine. Monitor Input/Output, daily weights and renal function with basic metabolic panel continue with free water supplements started oral iron, MVI, and dose of aransep 10/12/17 d/c phoslo and calcitriol. started renagel will keep low dose d5w IV to maintain hydration Dose meds/antibiotics for reduced GFR. Avoid fleets enema/magnesium based laxatives. Avoid nephrotoxins/NSAIDs/ iodinated contrast (unless needed emergently) Glycemic control Further work up/management as per primary team Thanks for allowing me to participate in care of your patient. Will follow patient with you. Please call if any Qs. had d/w family about current renal function and likely need for dialysis in near future. Dr Hammad Feldman Office: [phone] Chief Complaint; Unable Source of Info: medical chart review HPI: Pt is a 77 y/o F with hx of hypertension, asthma, parkinson disease came with AMS, decreased oral intake, CO2 retention AVERY and hypernatremia hence renal consulted. pt unable to provide any hx No known recent iodinated contrast exposure. No obvious episodes of low BP. ROS: unable. s/p extubation 10/13/17 Physical Examination: General Appearance: elderly appearing female Vitals reviewed and noted as below Head; Atraumatic, normocephalic ENT: normal mucosa EYES: Pupils are equal, round and reactive to light accommodation. Eye muscles and extraocular movement intact. Sclera is anicteric. Neck; supple no lymphadenopathy, no thyromegaly or bruit Lungs: normal respiratory rate/effort. Breath sounds bilateral clear Heart: Normal rate. s1s2 normal. No rub or gallop. Extremities: no edema. No varicose veins Neurological: Patient is awake follows commands but not much verbal/ communicative. having involuntary movements Skin: Warm and dry. Normal turgor. No rash. Palpitation: Normal elasticity for age Abdomen: Abdomen is soft. Bowel sounds +. There is no abdominal tenderness, no guarding/rigidity no organomegaly. has myoclonus jerks Psych:unable MSK: no joint tenderness or swelling. Digits and nails normal, no deformity : kidney or bladder not palpable Labs/imaging/EKG reviewed. Past medical history, past surgical history, family history, social history, allergy reviewed and noted as below family hx: unable to obtain renal sono; echogenic kidneys Objective - Vital Signs/Intake and Output Vital Signs (last 24 hours): Temp Pulse Resp BP Pulse Ox 97.7 F 78 16 155/71 H 95 10/18/17 08:05 10/18/17 13:33 10/18/17 08:05 10/18/17 10:37 10/18/17 08:05 Intake and Output: 10/18/17 10/18/17 06:59 18:59 Intake Total 240 Balance 240 - Medications Medications: Current Medications Acetaminophen (Tylenol 325mg Tab) 650 mg PO Q4H PRN PRN Reason: Fever >100.4 F Albuterol/Ipratropium (Duoneb 3 Mg/0.5 Mg (3 Ml) Ud) 3 ml IH [id number] [facility] Last Admin: 10/18/17 13:32 Dose: 3 ml Amlodipine Besylate (Norvasc) 10 mg PO DAILY [facility] Last Admin: 10/18/17 10:27 Dose: Not Given Famotidine (Pepcid) 20 mg PO DAILY [facility] Last Admin: 10/18/17 10:28 Dose: Not Given Ferrous Gluconate (Fergon) 324 mg PO TID [facility] Last Admin: 10/18/17 10:26 Dose: Not Given Hydralazine HCl (Apresoline) 10 mg IVP Q8H PRN PRN Reason: Systolic Blood Pressure Last Admin: 10/18/17 10:37 Dose: 10 mg Hydralazine HCl (Apresoline) 100 mg PO BID [facility] Last Admin: 10/18/17 10:25 Dose: Not Given Dextrose (Dextrose 5% In Water 1000 Ml) 1,000 mls @ 50 mls/hr IV .Q20H [facility] Last Admin: 10/17/17 13:19 Dose: 50 mls/hr Metoprolol Succinate (Toprol Xl) 37.5 mg PO DAILY [facility] Last Admin: 10/18/17 10:29 Dose: Not Given Prednisone (Prednisone Tab) 30 mg PO DAILY [facility] Last Admin: 10/18/17 10:28 Dose: Not Given Sevelamer HCl (Renagel) 800 mg PO TID [facility] Last Admin: 10/18/17 10:28 Dose: Not Given Vitamin B Complex/Vit C/Folic Acid (Nephro-Milagro) 1 tab PO 0800 [facility] Last Admin: 10/18/17 10:26 Dose: Not Given - Labs Labs: 10/18/17 13:14 10/18/17 13:14 PT 10.7 SECONDS (9.4-12.5) 10/07/17 23:39 INR 0.94 (0.93-1.08) 10/07/17 23:39 APTT 34.5 Seconds (25.1-36.5) 10/07/17 23:39
--- NOTE | 2017-10-18 17:42 | CP.PCM.PN ---
Subjective - Date & Time of Evaluation Date of Evaluation: 10/18/17 Time of Evaluation: 09:00 - Subjective Subjective: Medicine Progress Note: Patient seen and assessed at bedside with RT present. Patient noted to be tachypneic prior to interview and was started on nebulizer treatment by RT. Currently unable to answer ROS questioning. No acute events noted overnight per nursing staff with no complaints offered by patient. Objective - Vital Signs/Intake and Output Vital Signs (last 24 hours): Temp Pulse Resp BP Pulse Ox 99.6 F 82 20 111/71 100 10/18/17 16:00 10/18/17 16:00 10/18/17 16:00 10/18/17 16:00 10/18/17 16:00 Intake and Output: 10/18/17 10/18/17 06:59 18:59 Intake Total 240 Balance 240 - Medications Medications: Current Medications Acetaminophen (Tylenol 325mg Tab) 650 mg PO Q4H PRN PRN Reason: Fever >100.4 F Albuterol/Ipratropium (Duoneb 3 Mg/0.5 Mg (3 Ml) Ud) 3 ml IH [id number] [facility] Last Admin: 10/18/17 13:32 Dose: 3 ml Amlodipine Besylate (Norvasc) 10 mg PO DAILY [facility] Last Admin: 10/18/17 10:27 Dose: Not Given Famotidine (Pepcid) 20 mg PO DAILY [facility] Last Admin: 10/18/17 10:28 Dose: Not Given Ferrous Gluconate (Fergon) 324 mg PO TID [facility] Last Admin: 10/18/17 14:24 Dose: Not Given Hydralazine HCl (Apresoline) 10 mg IVP Q8H PRN PRN Reason: Systolic Blood Pressure Last Admin: 10/18/17 10:37 Dose: 10 mg Hydralazine HCl (Apresoline) 100 mg PO BID [facility] Last Admin: 10/18/17 10:25 Dose: Not Given Dextrose (Dextrose 5% In Water 1000 Ml) 1,000 mls @ 30 mls/hr IV .Q24H [facility] Metoprolol Succinate (Toprol Xl) 37.5 mg PO DAILY [facility] Last Admin: 10/18/17 10:29 Dose: Not Given Prednisone (Prednisone Tab) 30 mg PO DAILY [facility] Last Admin: 10/18/17 10:28 Dose: Not Given Sevelamer HCl (Renagel) 800 mg PO TID [facility] Last Admin: 10/18/17 14:24 Dose: Not Given Vitamin B Complex/Vit C/Folic Acid (Nephro-Milagro) 1 tab PO 0800 [facility] Last Admin: 10/18/17 10:26 Dose: Not Given - Labs Labs: 10/18/17 13:14 10/18/17 13:14 PT 10.7 SECONDS (9.4-12.5) 10/07/17 23:39 INR 0.94 (0.93-1.08) 10/07/17 23:39 APTT 34.5 Seconds (25.1-36.5) 10/07/17 23:39 - Constitutional Appears: In Acute Distress - Head Exam Head Exam: ATRAUMATIC, NORMAL INSPECTION, NORMOCEPHALIC - Eye Exam Eye Exam: Normal appearance - ENT Exam ENT Exam: Mucous Membranes Moist, Normal Exam - Neck Exam Neck Exam: Full ROM, Normal Inspection. absent: Lymphadenopathy - Respiratory Exam Respiratory Exam: Accessory Muscle Use, Respiratory Distress. absent: Chest Wall Tenderness, Decreased Breath Sounds, Prolonged Expiratory Phase, Rales, Rhonchi, Wheezes, Stridor - Cardiovascular Exam Cardiovascular Exam: REGULAR RHYTHM, RRR, +S1, +S2. absent: Bradycardia, Tachycardia, Clicks, Diastolic murmur, Gallop, Irregular Rhythm, JVD, Rubs, +S4 , Murmur - GI/Abdominal Exam GI & Abdominal Exam: Soft, Normal Bowel Sounds - Extremities Exam Extremities Exam: Full ROM, Normal Capillary Refill. absent: Calf Tenderness, Joint Swelling, Pedal Edema, Tenderness - Neurological Exam Neurological Exam: Alert, Awake - Skin Skin Exam: Dry, Intact, Normal Color, Warm Assessment and Plan - Assessment and Plan (Free Text) Assessment: 77 year old female with a past medical history significant for HTN, asthma, Parkinson's, who was admitted for AMS, failure to thrive, AVERY, hypernatremia and found to be in respiratory distress s/p extubation on 10/13. Currently on NC. Patient is currently awake, alert, responds to some questions (baseline as per family). Speech/swallow evaluation recommended pureed consistency diet with nectar thin liquids. PT evaluation recommends LTC or home with 24 hour care. Plan: 1. AMS -Resolved -CT Head showed 3mm round hyperdensity in the left temporal lobe inferiorly and could not exclude a tiny acute intraparenchymal bleed, with a repeat CT Head showing similar findings -Echo showed an LVEF of 59% with mild concentric left ventricular function -TSH, Vitamin B12 and Folate WNL -RPR negative -Cogentin discontinued, as EPS symptoms resolved -Neurology consulted, all recommendations appreciated 2. History of Hypercapneic Respiratory Failure -Currently using BiPAP PRN -Noted episode of respiratory distress this AM -ABG showing mildly elevated CO2 at 46, adequate oxygenation on BiPAP and normal lactate -Chest X-Ray showing NAD -Continue Duonebs [id number] and PO Prednisone 30mg QD -Continue BiPAP PRN 3. AVERY in setting of CKD -Likely secondary to dehydration vs. ATN -BUN/Creatinine improving -Continue Renagel and Nephro-Mliagro -Continue D5W at 30mls/hr -Continue to monitor with daily CMP's 4. Anemia -Likely secondary to CKD -Continue Ferrous Gluconate and Anaresp, per nephro -Continue to monitor with daily CBC's 5. HTN -Continue scheduled Metoprolol, Norvasc, and Hydralazine -Continue PRN Hydralazine GI Prophylaxis: Pepcid DVT Prophylaxis: SCD's Patient seen and case discussed with attending, Dr. Langley.
[2017-10-19] MEDS: Albuterol-Ipratrop 3 mg / 0.5 (3 ml) UD IH SCH ×4 (02:21→20:23)
[2017-10-19 07:17] LABS: BASO # 0.01 K/mm3 (0.0-2.0); BASO % 0.1 % (0.0-3.0); EOS # 0.2 (0.0-0.7); EOS % 2.9 % (1.5-5.0); GRAN # 5.84 (1.4-6.5); GRAN % 69.6 % (50.0-68.0); HEMOGLOBIN 8.5 g/dL (12.0-16.0); LYMPH # 1.6 (1.2-3.4); LYMPH % 19.5 % (22.0-35.0); MEAN CELL VOLUME 94.6 fl (80.0-105.0); MEAN CORPUSCULAR HEMOGLOBIN 28.9 pg (25.0-35.0); MEAN CORPUSCULAR HGB CONC 30.6 g/dl (31.0-37.0); MONO # 0.7 (0.1-0.6); MONO % 7.9 % (1.0-6.0); RBC 2.94 10^6/uL (3.5-6.1); RED CELL DISTRIBUTION WIDTH 14.7 % (11.5-14.5); WHITE BLOOD COUNT 8.4 10^3/ul (4.5-11.0)
--- NOTE | 2017-10-19 07:33 | CP.PCM.PN ---
Subjective - Date & Time of Evaluation Date of Evaluation: 10/19/17 Time of Evaluation: 07:30 - Subjective Subjective: Ms. Sylvester was seen and examined at the bedside. She is awake with a bipap on. She is non-verbal, but moves all her extremities spontaneously. She is unable to follow simple commands. She has a bilateral lower extremities SCD's. There was no untoward events overnight. Objective - Vital Signs/Intake and Output Vital Signs (last 24 hours): Temp Pulse Resp BP Pulse Ox 99.6 F 82 20 115/71 100 10/18/17 16:00 10/18/17 23:18 10/18/17 16:00 10/18/17 17:49 10/18/17 16:00 Intake and Output: 10/19/17 10/19/17 06:59 18:59 Intake Total 0 Output Total 0 Balance 0 - Medications Medications: Current Medications Acetaminophen (Tylenol 325mg Tab) 650 mg PO Q4H PRN PRN Reason: Fever >100.4 F Albuterol/Ipratropium (Duoneb 3 Mg/0.5 Mg (3 Ml) Ud) 3 ml IH [id number] [facility] Last Admin: 10/19/17 02:21 Dose: Not Given Amlodipine Besylate (Norvasc) 10 mg PO DAILY [facility] Last Admin: 10/18/17 10:27 Dose: Not Given Famotidine (Pepcid) 20 mg PO DAILY [facility] Last Admin: 10/18/17 10:28 Dose: Not Given Ferrous Gluconate (Fergon) 324 mg PO TID [facility] Last Admin: 10/18/17 17:49 Dose: 324 mg Hydralazine HCl (Apresoline) 10 mg IVP Q8H PRN PRN Reason: Systolic Blood Pressure Last Admin: 10/18/17 10:37 Dose: 10 mg Hydralazine HCl (Apresoline) 100 mg PO BID [facility] Last Admin: 10/18/17 17:49 Dose: 100 mg Dextrose (Dextrose 5% In Water 1000 Ml) 1,000 mls @ 30 mls/hr IV .Q24H [facility] Metoprolol Succinate (Toprol Xl) 37.5 mg PO DAILY [facility] Last Admin: 10/18/17 10:29 Dose: Not Given Prednisone (Prednisone Tab) 30 mg PO DAILY [facility] Last Admin: 10/18/17 10:28 Dose: Not Given Sevelamer HCl (Renagel) 800 mg PO TID [facility] Last Admin: 10/18/17 17:49 Dose: 800 mg Vitamin B Complex/Vit C/Folic Acid (Nephro-Milagro) 1 tab PO 0800 [facility] Last Admin: 10/18/17 10:26 Dose: Not Given - Labs Labs: 10/18/17 13:14 10/18/17 13:14 PT 10.7 SECONDS (9.4-12.5) 10/07/17 23:39 INR 0.94 (0.93-1.08) 10/07/17 23:39 APTT 34.5 Seconds (25.1-36.5) 10/07/17 23:39 - Constitutional Appears: No Acute Distress - Head Exam Head Exam: NORMAL INSPECTION - Neurological Exam Neurological Exam: Awake Neuro motor strength exam: Left Upper Extremity: 3, Right Upper Extremity: 3, Left Lower Extremity: 3, Right Lower Extremity: 3 Additional comments: She is unable to follow commands, but moves all extremities spontaneously. Assessment and Plan (1) Abnormal CT scan, head Assessment & Plan: Case discussed with Dr. Matias, continue all current medical regimen. Recommend MRI of the brain without contrast. Status: Acute (2) Toxic metabolic encephalopathy Assessment & Plan: Case discussed with Dr. Matias, continue all current medical regimen. Recommend treat any electrolyte abnormality. Status: Acute
[2017-10-19 07:43] LABS: ALB/GLOB RATIO 1.1 (1.1-1.8); ALBUMIN 3.1 g/dL (3.0-4.8); CALCIUM 8.8 mg/dL (8.4-10.5)
[2017-10-19] MEDS: Multivitamin Vitamin B Complex (Nephro-Vite) Tab PO SCH (08:06)
[2017-10-19] MEDS: Metoprolol Succinate 25 mg XL Tab PO SCH (09:29)
[2017-10-19] MEDS ORDERED: Darbepoetin Alfa 60 mcg/ml Inj SC ONE (11:24)
--- NOTE | 2017-10-19 14:34 | CP.PCM.PN ---
<Ember Magaña - Last Filed: 10/19/17 14:30> Subjective - Date & Time of Evaluation Date of Evaluation: 10/19/17 Time of Evaluation: 14:30 - Subjective Subjective: Ember Magaña, PGY1, Medicine Progress Note for Dr Dowling: Patient seen and assessed at bedside. Overnight, pt tachypneic and desating to 89% on RA, requiring bipap. Unable to answer ROS due to baseline mental status. No fever, chills, nausea, vomiting. Tolerating diet well. Objective - Vital Signs/Intake and Output Vital Signs (last 24 hours): Temp Pulse Resp BP Pulse Ox 98.8 F 75 19 114/77 100 10/19/17 07:30 10/19/17 09:29 10/19/17 07:30 10/19/17 09:29 10/19/17 07:30 Intake and Output: 10/19/17 10/19/17 06:59 18:59 Intake Total 0 Output Total 0 Balance 0 - Medications Medications: Current Medications Acetaminophen (Tylenol 325mg Tab) 650 mg PO Q4H PRN PRN Reason: Fever >100.4 F Albuterol/Ipratropium (Duoneb 3 Mg/0.5 Mg (3 Ml) Ud) 3 ml IH [id number] [facility] Last Admin: 10/19/17 07:33 Dose: 3 ml Amlodipine Besylate (Norvasc) 10 mg PO DAILY [facility] Last Admin: 10/19/17 09:28 Dose: 10 mg Famotidine (Pepcid) 20 mg PO DAILY [facility] Last Admin: 10/19/17 09:29 Dose: 20 mg Ferrous Gluconate (Fergon) 324 mg PO TID [facility] Last Admin: 10/19/17 14:19 Dose: Not Given Hydralazine HCl (Apresoline) 10 mg IVP Q8H PRN PRN Reason: Systolic Blood Pressure Last Admin: 10/18/17 10:37 Dose: 10 mg Hydralazine HCl (Apresoline) 100 mg PO BID [facility] Last Admin: 10/19/17 09:29 Dose: 100 mg Metoprolol Succinate (Toprol Xl) 37.5 mg PO DAILY [facility] Last Admin: 10/19/17 09:29 Dose: 37.5 mg Prednisone (Prednisone Tab) 30 mg PO DAILY [facility] Last Admin: 10/19/17 09:28 Dose: 30 mg Sevelamer HCl (Renagel) 800 mg PO TID [facility] Last Admin: 10/19/17 14:20 Dose: Not Given Vitamin B Complex/Vit C/Folic Acid (Nephro-Milagro) 1 tab PO 0800 [facility] Last Admin: 10/19/17 08:06 Dose: 1 tab - Labs Labs: 10/19/17 06:30 10/19/17 06:30 PT 10.7 SECONDS (9.4-12.5) 10/07/17 23:39 INR 0.94 (0.93-1.08) 10/07/17 23:39 APTT 34.5 Seconds (25.1-36.5) 10/07/17 23:39 - Constitutional Appears: Non-toxic, No Acute Distress, Older Than Stated Age, Chronically Ill - Head Exam Head Exam: ATRAUMATIC, NORMOCEPHALIC - Eye Exam Eye Exam: EOMI, PERRL. absent: Conjunctival injection, Scleral icterus Pupil Exam: PERRL. absent: Fixed, Irregular, Unequal - ENT Exam ENT Exam: Mucous Membranes Moist - Neck Exam Neck Exam: Full ROM - Respiratory Exam Respiratory Exam: Clear to Ausculation Bilateral. absent: Accessory Muscle Use , Chest Wall Tenderness, Rales, Rhonchi, Wheezes, Respiratory Distress - Cardiovascular Exam Cardiovascular Exam: RRR, +S1, +S2. absent: Bradycardia, Tachycardia, Clicks, Murmur - GI/Abdominal Exam GI & Abdominal Exam: Soft, Normal Bowel Sounds. absent: Distended, Firm, Guarding, Tenderness, Mass, Organomegaly, Rebound - Extremities Exam Extremities Exam: Full ROM, Normal Inspection. absent: Calf Tenderness, Pedal Edema - Back Exam Back Exam: NORMAL INSPECTION - Neurological Exam Neurological Exam: Alert, Awake Additional comments: moving all extremities - Psychiatric Exam Psychiatric exam: Normal Mood - Skin Skin Exam: Dry, Normal Color, Warm Assessment and Plan - Assessment and Plan (Free Text) Assessment: 77 year old female with a past medical history significant for HTN, asthma, Parkinson's, who was admitted for AMS, failure to thrive, AVERY, hypernatremia and found to be in respiratory distress s/p extubation on 10/13. Patient is currently awake, alert, responds to some questions (baseline as per family). Pt tolerating pureed/NTL well. 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 Overnight, pt desaturating with tachypnea, requiring bipap. Will re-consult pulm to determine home bipap use: AMS -Resolved -CT Head showed 3mm round hyperdensity in the left temporal lobe inferiorly and could not exclude a tiny acute intraparenchymal bleed, with a repeat CT Head showing similar findings -Echo showed an LVEF of 59% with mild concentric left ventricular function -TSH, Vitamin B12 and Folate WNL -RPR negative -Cogentin discontinued, as EPS symptoms resolved -Neurology consulted, all recommendations appreciated History of Hypercapneic Respiratory Failure -Noted episode of respiratory distress overnight -ABG showing mildly elevated CO2 at 46, adequate oxygenation on BiPAP and normal lactate -Chest X-Ray showing NAD -Continue Duonebs [id number] and PO Prednisone 30mg QD -Continue BiPAP PRN. Re-consult pulm to determine if patient needs home bipap. AVERY in setting of CKD -Likely secondary to dehydration vs. ATN -BUN/Creatinine improving -Continue Renagel and Nephro-Milagro -Continue to monitor with daily CMP's Anemia -Likely secondary to CKD -Continue Ferrous Gluconate and Anaresp, per nephro -Continue to monitor with daily CBC's HTN -Continue scheduled Metoprolol, Norvasc, and Hydralazine -Continue PRN Hydralazine GI Prophylaxis: Pepcid DVT Prophylaxis: SCD's Patient seen and case discussed with attending, Dr. Dowling. <Cheyanne Dowling - Last Filed: 10/19/17 16:10> Objective - Vital Signs/Intake and Output Vital Signs (last 24 hours): Temp Pulse Resp BP Pulse Ox 98.8 F 75 19 114/77 100 10/19/17 07:30 10/19/17 09:29 10/19/17 07:30 10/19/17 09:29 10/19/17 07:30 Intake and Output: 10/19/17 10/19/17 06:59 18:59 Intake Total 0 Output Total 0 Balance 0 - Medications Medications: Current Medications Acetaminophen (Tylenol 325mg Tab) 650 mg PO Q4H PRN PRN Reason: Fever >100.4 F Albuterol/Ipratropium (Duoneb 3 Mg/0.5 Mg (3 Ml) Ud) 3 ml IH [id number] [facility] Last Admin: 10/19/17 14:32 Dose: Not Given Amlodipine Besylate (Norvasc) 10 mg PO DAILY [facility] Last Admin: 10/19/17 09:28 Dose: 10 mg Famotidine (Pepcid) 20 mg PO DAILY [facility] Last Admin: 10/19/17 09:29 Dose: 20 mg Ferrous Gluconate (Fergon) 324 mg PO TID [facility] Last Admin: 10/19/17 14:19 Dose: Not Given Hydralazine HCl (Apresoline) 10 mg IVP Q8H PRN PRN Reason: Systolic Blood Pressure Last Admin: 10/18/17 10:37 Dose: 10 mg Hydralazine HCl (Apresoline) 100 mg PO BID [facility] Last Admin: 10/19/17 09:29 Dose: 100 mg Metoprolol Succinate (Toprol Xl) 37.5 mg PO DAILY [facility] Last Admin: 10/19/17 09:29 Dose: 37.5 mg Prednisone (Prednisone Tab) 30 mg PO DAILY [facility] Last Admin: 10/19/17 09:28 Dose: 30 mg Sevelamer HCl (Renagel) 800 mg PO TID [facility] Last Admin: 10/19/17 14:20 Dose: Not Given Vitamin B Complex/Vit C/Folic Acid (Nephro-Milagro) 1 tab PO 0800 [facility] Last Admin: 10/19/17 08:06 Dose: 1 tab - Labs Labs: 10/19/17 06:30 10/19/17 06:30 PT 10.7 SECONDS (9.4-12.5) 10/07/17 23:39 INR 0.94 (0.93-1.08) 10/07/17 23:39 APTT 34.5 Seconds (25.1-36.5) 10/07/17 23:39 Attending/Attestation - Attestation I have personally seen and examined this patient.: Yes I have fully participated in the care of the patient.: Yes I have reviewed all pertinent clinical information, including history, physical exam and plan: Yes Notes (Text): 10/19/17 16:07 77 year old female with past medical history of hypertension and asthma /COPD who was admitted with altered mental status and failure to thrive. She was found to have severe hypernatremia and acute on chronic renal failure. She also initially intubated for hypercapnic respiratory failure but later extubated. Yesterday she had episode of respiratory distress but today looks comfortable. She is on po prednisone and duonebs. Pulmonary follow up is requested. Continue to monitor creatinine and hemoglobin closely. Nephrology is following. Initial CT head showed 3 mm hyperdensity in the left temporal lobe. Neurology is following and ordered for MRI/MRA studies, however patient is unable to stay still and complete MRI. Will follow up with neurology recommendations. Cheyanne Dowling MD Hospitalist.
--- NOTE | 2017-10-19 15:37 | CP.PCM.PN ---
Subjective - Date & Time of Evaluation Date of Evaluation: 10/19/17 Time of Evaluation: 15:36 - Subjective Subjective: Follow up Nephrology Consultation: Assessment: stable Acute Kidney Injury (N17.9) likely dehydration, pre--renal state and ATN Hypernatremia: improved HTN, possible pneumonia, COPD Anemia hypercapnic respi failure likely has underlying CKD ? stage (echogenic kidneys on sono) secondary hyperparathyroidism, hyperphosphatemia Hypercalcemia due to calcitriol +phoslo Plan No acute need for renal replacement therapy at this time. Hypertension control with meds as ordered. Patient not on ACEI/ARB due to AVERY. norvasc 10 mg/day, Increased hydralazine. Monitor Input/Output, daily weights and renal function with basic metabolic panel continue with free water supplements started oral iron, MVI, and dose of aransep 10/19/17 as 60 mcg d/c phoslo and calcitriol. started renagel d/c IVF Dose meds/antibiotics for reduced GFR. Avoid fleets enema/magnesium based laxatives. Avoid nephrotoxins/NSAIDs/ iodinated contrast (unless needed emergently) Glycemic control Further work up/management as per primary team Thanks for allowing me to participate in care of your patient. Will follow patient with you. Please call if any Qs. had d/w family about current renal function and likely need for dialysis in near future. Dr Hammad Feldman Office: [phone] Chief Complaint; Unable Source of Info: medical chart review HPI: Pt is a 77 y/o F with hx of hypertension, asthma, parkinson disease came with AMS, decreased oral intake, CO2 retention AVERY and hypernatremia hence renal consulted. pt unable to provide any hx No known recent iodinated contrast exposure. No obvious episodes of low BP. ROS: unable. s/p extubation 10/13/17 Physical Examination: General Appearance: elderly appearing female Vitals reviewed and noted as below Head; Atraumatic, normocephalic ENT: normal mucosa EYES: Pupils are equal, round and reactive to light accommodation. Eye muscles and extraocular movement intact. Sclera is anicteric. Neck; supple no lymphadenopathy, no thyromegaly or bruit Lungs: normal respiratory rate/effort. Breath sounds bilateral clear Heart: Normal rate. s1s2 normal. No rub or gallop. Extremities: no edema. No varicose veins Neurological: Patient is awake follows commands but not much verbal/ communicative. having involuntary movements Skin: Warm and dry. Normal turgor. No rash. Palpitation: Normal elasticity for age Abdomen: Abdomen is soft. Bowel sounds +. There is no abdominal tenderness, no guarding/rigidity no organomegaly. has myoclonus jerks Psych:unable MSK: no joint tenderness or swelling. Digits and nails normal, no deformity : kidney or bladder not palpable Labs/imaging/EKG reviewed. Past medical history, past surgical history, family history, social history, allergy reviewed and noted as below family hx: unable to obtain renal sono; echogenic kidneys Objective - Vital Signs/Intake and Output Vital Signs (last 24 hours): Temp Pulse Resp BP Pulse Ox 98.8 F 75 19 114/77 100 10/19/17 07:30 10/19/17 09:29 10/19/17 07:30 10/19/17 09:29 10/19/17 07:30 Intake and Output: 10/19/17 10/19/17 06:59 18:59 Intake Total 0 Output Total 0 Balance 0 - Medications Medications: Current Medications Acetaminophen (Tylenol 325mg Tab) 650 mg PO Q4H PRN PRN Reason: Fever >100.4 F Albuterol/Ipratropium (Duoneb 3 Mg/0.5 Mg (3 Ml) Ud) 3 ml IH [id number] [facility] Last Admin: 10/19/17 14:32 Dose: Not Given Amlodipine Besylate (Norvasc) 10 mg PO DAILY [facility] Last Admin: 10/19/17 09:28 Dose: 10 mg Famotidine (Pepcid) 20 mg PO DAILY [facility] Last Admin: 10/19/17 09:29 Dose: 20 mg Ferrous Gluconate (Fergon) 324 mg PO TID [facility] Last Admin: 10/19/17 14:19 Dose: Not Given Hydralazine HCl (Apresoline) 10 mg IVP Q8H PRN PRN Reason: Systolic Blood Pressure Last Admin: 10/18/17 10:37 Dose: 10 mg Hydralazine HCl (Apresoline) 100 mg PO BID [facility] Last Admin: 10/19/17 09:29 Dose: 100 mg Metoprolol Succinate (Toprol Xl) 37.5 mg PO DAILY [facility] Last Admin: 10/19/17 09:29 Dose: 37.5 mg Prednisone (Prednisone Tab) 30 mg PO DAILY [facility] Last Admin: 10/19/17 09:28 Dose: 30 mg Sevelamer HCl (Renagel) 800 mg PO TID [facility] Last Admin: 10/19/17 14:20 Dose: Not Given Vitamin B Complex/Vit C/Folic Acid (Nephro-Milagro) 1 tab PO 0800 [facility] Last Admin: 10/19/17 08:06 Dose: 1 tab - Labs Labs: 10/19/17 06:30 10/19/17 06:30 PT 10.7 SECONDS (9.4-12.5) 10/07/17 23:39 INR 0.94 (0.93-1.08) 10/07/17 23:39 APTT 34.5 Seconds (25.1-36.5) 10/07/17 23:39
[2017-10-20] MEDS: Albuterol-Ipratrop 3 mg / 0.5 (3 ml) UD IH SCH ×4 (02:26→21:00)
[2017-10-20 06:47] LABS: BASO # 0.02 K/mm3 (0.0-2.0); BASO % 0.2 % (0.0-3.0); EOS # 0.1 (0.0-0.7); EOS % 0.9 % (1.5-5.0); GRAN # 6.36 (1.4-6.5); GRAN % 69.3 % (50.0-68.0); LYMPH # 1.7 (1.2-3.4); MEAN CELL VOLUME 93.9 fl (80.0-105.0); MEAN CORPUSCULAR HEMOGLOBIN 28.7 pg (25.0-35.0); MEAN CORPUSCULAR HGB CONC 30.5 g/dl (31.0-37.0); MEAN PLATELET VOLUME 9.9 fl (7.0-11.0); MONO % 10.6 % (1.0-6.0); RBC 3.14 10^6/uL (3.5-6.1); RED CELL DISTRIBUTION WIDTH 14.7 % (11.5-14.5); WHITE BLOOD COUNT 9.2 10^3/ul (4.5-11.0)
[2017-10-20 07:14] LABS: ALB/GLOB RATIO 1.1 (1.1-1.8); ALBUMIN 3.6 g/dL (3.0-4.8); CALCIUM 8.6 mg/dL (8.4-10.5)
[2017-10-20] MEDS: Metoprolol Succinate 25 mg XL Tab PO SCH (09:37)
[2017-10-20] MEDS: Multivitamin Vitamin B Complex (Nephro-Vite) Tab PO SCH (09:41)
--- NOTE | 2017-10-20 12:27 | CP.PCM.PN ---
<Heidy Nathan - Last Filed: 10/20/17 14:27> Subjective - Date & Time of Evaluation Date of Evaluation: 10/20/17 Time of Evaluation: 09:00 - Subjective Subjective: PGY-2, Medicine Progress Note for hospitalist service Patient seen and examined at bedside. No acute distress. Nurse reports no acute events overnight. Overnight, patient was on bipap per nurse. Unable to answer ROS due to baseline mental status. No fever, chills, nausea, vomiting. Tolerating diet well. Objective - Vital Signs/Intake and Output Vital Signs (last 24 hours): Temp Pulse Resp BP Pulse Ox 97.8 F 66 22 127/80 100 10/20/17 07:30 10/20/17 09:37 10/20/17 07:30 10/20/17 09:38 10/20/17 07:30 Intake and Output: 10/20/17 10/20/17 06:59 18:59 Intake Total 540 Balance 540 - Medications Medications: Current Medications Acetaminophen (Tylenol 325mg Tab) 650 mg PO Q4H PRN PRN Reason: Fever >100.4 F Albuterol/Ipratropium (Duoneb 3 Mg/0.5 Mg (3 Ml) Ud) 3 ml IH [id number] [facility] Last Admin: 10/20/17 07:31 Dose: 3 ml Amlodipine Besylate (Norvasc) 10 mg PO DAILY [facility] Last Admin: 10/20/17 09:38 Dose: 10 mg Famotidine (Pepcid) 20 mg PO DAILY [facility] Last Admin: 10/20/17 09:37 Dose: 20 mg Ferrous Gluconate (Fergon) 324 mg PO TID [facility] Last Admin: 10/20/17 09:38 Dose: 324 mg Hydralazine HCl (Apresoline) 10 mg IVP Q8H PRN PRN Reason: Systolic Blood Pressure Last Admin: 10/18/17 10:37 Dose: 10 mg Hydralazine HCl (Apresoline) 100 mg PO BID [facility] Last Admin: 10/20/17 09:36 Dose: 100 mg Metoprolol Succinate (Toprol Xl) 37.5 mg PO DAILY [facility] Last Admin: 10/20/17 09:37 Dose: 37.5 mg Prednisone (Prednisone Tab) 30 mg PO DAILY [facility] Last Admin: 10/20/17 09:38 Dose: 30 mg Sevelamer HCl (Renagel) 800 mg PO TID [facility] Last Admin: 10/20/17 09:37 Dose: 800 mg Vitamin B Complex/Vit C/Folic Acid (Nephro-Milagro) 1 tab PO 0800 [facility] Last Admin: 10/20/17 09:41 Dose: 1 tab - Labs Labs: 10/20/17 06:20 10/20/17 06:20 PT 10.7 SECONDS (9.4-12.5) 10/07/17 23:39 INR 0.94 (0.93-1.08) 10/07/17 23:39 APTT 34.5 Seconds (25.1-36.5) 10/07/17 23:39 - Constitutional Appears: No Acute Distress - Head Exam Head Exam: ATRAUMATIC, NORMOCEPHALIC - Eye Exam Eye Exam: EOMI, Normal appearance - Respiratory Exam Respiratory Exam: Clear to Ausculation Bilateral, NORMAL BREATHING PATTERN. absent: Rales, Rhonchi, Wheezes - Cardiovascular Exam Cardiovascular Exam: REGULAR RHYTHM, +S1, +S2. absent: Tachycardia, Murmur - GI/Abdominal Exam GI & Abdominal Exam: Soft, Normal Bowel Sounds. absent: Distended, Firm, Tenderness - Extremities Exam Extremities Exam: Normal Inspection. absent: Pedal Edema - Neurological Exam Neurological Exam: Alert, Awake, Oriented x3 - Skin Skin Exam: Dry, Intact, Normal Color, Warm Assessment and Plan - Assessment and Plan (Free Text) Assessment: 77 year old female with a past medical history significant for HTN, asthma, Parkinson's, who was admitted for AMS, failure to thrive, AVERY, hypernatremia and found to be in respiratory distress s/p extubation on 10/13. Patient is currently awake, alert, responds to some questions (baseline as per family). Pt tolerating pureed/NTL well. PT evaluation recommends LTC or nurse with 24 hour care (patient's insurance refused assisted rehab placement). Plan: History of Hypercapneic Respiratory Failure - Noted episode of respiratory distress 2 nights ago - ABG showing mildly elevated CO2 at 46, adequate oxygenation on BiPAP and normal lactate - Chest X-Ray showing NAD - Continue Duonebs [id number] and PO Prednisone 30mg daily - Continue BiPAPat night - will consult pulm to determine if patient needs home bipap. AVERY in setting of CKD - Likely secondary to dehydration vs. ATN - BUN/Creatinine improving - Continue Renagel and Nephro-Milagro - Continue to monitor with daily CMP's - nephro following Anemia - Likely secondary to CKD - Continue Ferrous Gluconate and Anaresp, per nephro - Continue to monitor with daily CBC's HTN - Continue scheduled toprol 37.5mg, Norvasc 10mg, and Hydralazine 100mg bid - Continue PRN Hydralazine AMS - Resolved - CT Head on admission showed 3mm round hyperdensity in the left temporal lobe inferiorly and could not exclude a tiny acute intraparenchymal bleed, with a repeat CT Head showing similar findings - Echo showed an LVEF of 59% with mild concentric left ventricular function - TSH, Vitamin B12 and Folate WNL - RPR negative - Cogentin discontinued, as EPS symptoms resolved - Neurology following GI Prophylaxis: Pepcid DVT Prophylaxis: SCD's <Cheyanne Dowling A - Last Filed: 10/20/17 14:43> Objective - Vital Signs/Intake and Output Vital Signs (last 24 hours): Temp Pulse Resp BP Pulse Ox 97.8 F 66 22 127/80 100 10/20/17 07:30 10/20/17 09:37 10/20/17 07:30 10/20/17 09:38 10/20/17 07:30 Intake and Output: 10/20/17 10/20/17 06:59 18:59 Intake Total 540 Balance 540 - Medications Medications: Current Medications Acetaminophen (Tylenol 325mg Tab) 650 mg PO Q4H PRN PRN Reason: Fever >100.4 F Albuterol/Ipratropium (Duoneb 3 Mg/0.5 Mg (3 Ml) Ud) 3 ml IH [id number] [facility] Last Admin: 10/20/17 13:52 Dose: Not Given Amlodipine Besylate (Norvasc) 10 mg PO DAILY [facility] Last Admin: 10/20/17 09:38 Dose: 10 mg Famotidine (Pepcid) 20 mg PO DAILY [facility] Last Admin: 10/20/17 09:37 Dose: 20 mg Ferrous Gluconate (Fergon) 324 mg PO TID [facility] Last Admin: 10/20/17 09:38 Dose: 324 mg Hydralazine HCl (Apresoline) 10 mg IVP Q8H PRN PRN Reason: Systolic Blood Pressure Last Admin: 10/18/17 10:37 Dose: 10 mg Hydralazine HCl (Apresoline) 100 mg PO BID [facility] Last Admin: 10/20/17 09:36 Dose: 100 mg Metoprolol Succinate (Toprol Xl) 37.5 mg PO DAILY [facility] Last Admin: 10/20/17 09:37 Dose: 37.5 mg Prednisone (Prednisone Tab) 30 mg PO DAILY [facility] Last Admin: 10/20/17 09:38 Dose: 30 mg Sevelamer HCl (Renagel) 800 mg PO TID [facility] Last Admin: 10/20/17 09:37 Dose: 800 mg Vitamin B Complex/Vit C/Folic Acid (Nephro-Milagro) 1 tab PO 0800 [facility] Last Admin: 10/20/17 09:41 Dose: 1 tab - Labs Labs: 10/20/17 06:20 10/20/17 06:20 PT 10.7 SECONDS (9.4-12.5) 10/07/17 23:39 INR 0.94 (0.93-1.08) 10/07/17 23:39 APTT 34.5 Seconds (25.1-36.5) 10/07/17 23:39 Attending/Attestation - Attestation I have personally seen and examined this patient.: Yes I have fully participated in the care of the patient.: Yes I have reviewed all pertinent clinical information, including history, physical exam and plan: Yes Notes (Text): 10/20/17 14:42 77 year old female with past medical history of hypertension and asthma /COPD who was admitted with altered mental status and failure to thrive. She was found to have severe hypernatremia and acute on chronic renal failure. She also initially intubated for hypercapnic respiratory failure but later extubated. Few days prior she had episode of respiratory distress which improved with bipap. She is on tapering po prednisone and duonebs. Pulmonary follow up was requested. Continue to monitor creatinine and hemoglobin closely. Nephrology is following. Initial CT head showed 3 mm hyperdensity in the left temporal lobe. Neurology is following and ordered for MRI/MRA studies, however patient is unable to stay still and complete MRI. Will follow up with neurology recommendations. Cheyanne Dowling MD Hospitalist.
--- NOTE | 2017-10-20 17:08 | CP.PCM.PN ---
Subjective - Date & Time of Evaluation Date of Evaluation: 10/20/17 Time of Evaluation: 17:07 - Subjective Subjective: Follow up Nephrology Consultation: Assessment: stable Acute Kidney Injury (N17.9) likely dehydration, pre--renal state and ATN Hypernatremia: improved HTN, possible pneumonia, COPD Anemia hypercapnic respi failure likely has underlying CKD ? stage (echogenic kidneys on sono) secondary hyperparathyroidism, hyperphosphatemia Hypercalcemia due to calcitriol +phoslo Plan No acute need for renal replacement therapy at this time. Hypertension control with meds as ordered. Patient not on ACEI/ARB due to AVERY Monitor Input/Output, daily weights and renal function with basic metabolic panel continue with free water supplements started oral iron, MVI, and dose of aransep 10/19/17 as 60 mcg d/c phoslo and calcitriol. started renagel Dose meds/antibiotics for reduced GFR. Avoid fleets enema/magnesium based laxatives. Avoid nephrotoxins/NSAIDs/ iodinated contrast (unless needed emergently) Glycemic control Further work up/management as per primary team Thanks for allowing me to participate in care of your patient. Will follow patient with you. Please call if any Qs. had d/w family about current renal function and likely need for dialysis in near future. Dr Hammad Feldman Office: [phone] Chief Complaint; Unable Source of Info: medical chart review HPI: Pt is a 77 y/o F with hx of hypertension, asthma, parkinson disease came with AMS, decreased oral intake, CO2 retention AVERY and hypernatremia hence renal consulted. pt unable to provide any hx No known recent iodinated contrast exposure. No obvious episodes of low BP. ROS: unable. s/p extubation 10/13/17 Physical Examination: General Appearance: elderly appearing female Vitals reviewed and noted as below Head; Atraumatic, normocephalic ENT: on Bipap hence unable EYES: Pupils are equal, round and reactive to light accommodation. Eye muscles and extraocular movement intact. Sclera is anicteric. Neck; supple no lymphadenopathy, no thyromegaly or bruit Lungs: normal respiratory rate/effort. Breath sounds bilateral clear Heart: Normal rate. s1s2 normal. No rub or gallop. Extremities: no edema. No varicose veins Neurological: Patient is awake follows commands but not much verbal/ communicative. having involuntary movements Skin: Warm and dry. Normal turgor. No rash. Palpitation: Normal elasticity for age Abdomen: Abdomen is soft. Bowel sounds +. There is no abdominal tenderness, no guarding/rigidity no organomegaly. has extrapyrimadal movements Psych:unable MSK: no joint tenderness or swelling. Digits and nails normal, no deformity : kidney or bladder not palpable Labs/imaging/EKG reviewed. Past medical history, past surgical history, family history, social history, allergy reviewed and noted as below family hx: unable to obtain renal sono; echogenic kidneys Objective - Vital Signs/Intake and Output Vital Signs (last 24 hours): Temp Pulse Resp BP Pulse Ox 97.8 F 66 22 127/80 100 10/20/17 07:30 10/20/17 09:37 10/20/17 07:30 10/20/17 09:38 10/20/17 07:30 Intake and Output: 10/20/17 10/20/17 06:59 18:59 Intake Total 540 Balance 540 - Medications Medications: Current Medications Acetaminophen (Tylenol 325mg Tab) 650 mg PO Q4H PRN PRN Reason: Fever >100.4 F Albuterol/Ipratropium (Duoneb 3 Mg/0.5 Mg (3 Ml) Ud) 3 ml IH [id number] [facility] Last Admin: 10/20/17 13:52 Dose: Not Given Amlodipine Besylate (Norvasc) 10 mg PO DAILY [facility] Last Admin: 10/20/17 09:38 Dose: 10 mg Famotidine (Pepcid) 20 mg PO DAILY [facility] Last Admin: 10/20/17 09:37 Dose: 20 mg Ferrous Gluconate (Fergon) 324 mg PO TID [facility] Last Admin: 10/20/17 15:58 Dose: 324 mg Hydralazine HCl (Apresoline) 10 mg IVP Q8H PRN PRN Reason: Systolic Blood Pressure Last Admin: 10/18/17 10:37 Dose: 10 mg Hydralazine HCl (Apresoline) 100 mg PO BID [facility] Last Admin: 10/20/17 09:36 Dose: 100 mg Metoprolol Succinate (Toprol Xl) 37.5 mg PO DAILY [facility] Last Admin: 10/20/17 09:37 Dose: 37.5 mg Prednisone (Prednisone Tab) 30 mg PO DAILY [facility] Last Admin: 10/20/17 09:38 Dose: 30 mg Sevelamer HCl (Renagel) 800 mg PO TID [facility] Last Admin: 10/20/17 15:00 Dose: 800 mg Vitamin B Complex/Vit C/Folic Acid (Nephro-Milagro) 1 tab PO 0800 [facility] Last Admin: 10/20/17 09:41 Dose: 1 tab - Labs Labs: 10/20/17 06:20 10/20/17 06:20 PT 10.7 SECONDS (9.4-12.5) 10/07/17 23:39 INR 0.94 (0.93-1.08) 10/07/17 23:39 APTT 34.5 Seconds (25.1-36.5) 10/07/17 23:39
[2017-10-21] MEDS: Albuterol-Ipratrop 3 mg / 0.5 (3 ml) UD IH SCH ×3 (03:00→13:47)
--- NOTE | 2017-10-21 07:25 | CP.PCM.PN ---
Subjective - Date & Time of Evaluation Date of Evaluation: 10/21/17 Time of Evaluation: 07:21 - Subjective Subjective: Ms. Sylvester was seen and examined at the bedside. She is awake, with few incomprehensible words. She is able to follow simple commands such as raising her bilateral upper and lower extremities. She has the involuntary head movements. There was no untoward events overnight. Objective - Vital Signs/Intake and Output Vital Signs (last 24 hours): Temp Pulse Resp BP Pulse Ox 97.8 F 68 22 108/73 100 10/20/17 07:30 10/20/17 17:46 10/20/17 07:30 10/20/17 17:46 10/20/17 07:30 Intake and Output: 10/21/17 10/21/17 06:59 18:59 Intake Total 60 Balance 60 - Medications Medications: Current Medications Acetaminophen (Tylenol 325mg Tab) 650 mg PO Q4H PRN PRN Reason: Fever >100.4 F Albuterol/Ipratropium (Duoneb 3 Mg/0.5 Mg (3 Ml) Ud) 3 ml IH [id number] [facility] Last Admin: 10/21/17 03:00 Dose: Not Given Amlodipine Besylate (Norvasc) 10 mg PO DAILY [facility] Last Admin: 10/20/17 09:38 Dose: 10 mg Famotidine (Pepcid) 20 mg PO DAILY [facility] Last Admin: 10/20/17 09:37 Dose: 20 mg Ferrous Gluconate (Fergon) 324 mg PO TID [facility] Last Admin: 10/20/17 17:48 Dose: 324 mg Hydralazine HCl (Apresoline) 10 mg IVP Q8H PRN PRN Reason: Systolic Blood Pressure Last Admin: 10/18/17 10:37 Dose: 10 mg Hydralazine HCl (Apresoline) 100 mg PO BID [facility] Last Admin: 10/20/17 17:46 Dose: 100 mg Metoprolol Succinate (Toprol Xl) 37.5 mg PO DAILY [facility] Last Admin: 10/20/17 09:37 Dose: 37.5 mg Prednisone (Prednisone Tab) 30 mg PO DAILY [facility] Last Admin: 10/20/17 09:38 Dose: 30 mg Sevelamer HCl (Renagel) 800 mg PO TID [facility] Last Admin: 01/30/18 17:46 Dose: 800 mg Vitamin B Complex/Vit C/Folic Acid (Nephro-Milagro) 1 tab PO 0800 [facility] Last Admin: 10/20/17 09:41 Dose: 1 tab - Labs Labs: 10/20/17 06:20 10/20/17 06:20 PT 10.7 SECONDS (9.4-12.5) 10/07/17 23:39 INR 0.94 (0.93-1.08) 10/07/17 23:39 APTT 34.5 Seconds (25.1-36.5) 10/07/17 23:39 - Constitutional Appears: No Acute Distress - Head Exam Head Exam: NORMAL INSPECTION - Neurological Exam Neurological Exam: Awake Neuro motor strength exam: Left Upper Extremity: 4, Right Upper Extremity: 4, Left Lower Extremity: 4, Right Lower Extremity: 4 Additional comments: She is awake, follow some commands. Sensation remains intact. Assessment and Plan (1) Toxic metabolic encephalopathy Assessment & Plan: Case discussed with Dr. Matias, continue all current medical regimen. Please refer to nephrology regarding electrolytes abnormality. Recommend blood pressure control. Status: Acute
[2017-10-21 07:57] LABS: BASO # 0.01 K/mm3 (0.0-2.0); BASO % 0.1 % (0.0-3.0); EOS # 0.1 (0.0-0.7); EOS % 0.8 % (1.5-5.0); GRAN # 5.69 (1.4-6.5); GRAN % 67.8 % (50.0-68.0); HEMOGLOBIN 9.3 g/dL (12.0-16.0); LYMPH # 1.8 (1.2-3.4); LYMPH % 21.5 % (22.0-35.0); MEAN CELL VOLUME 93.8 fl (80.0-105.0); MEAN CORPUSCULAR HEMOGLOBIN 28.6 pg (25.0-35.0); MEAN CORPUSCULAR HGB CONC 30.5 g/dl (31.0-37.0); MEAN PLATELET VOLUME 9.4 fl (7.0-11.0); MONO # 0.8 (0.1-0.6); MONO % 9.8 % (1.0-6.0); RBC 3.25 10^6/uL (3.5-6.1); WHITE BLOOD COUNT 8.4 10^3/ul (4.5-11.0)
[2017-10-21 08:38] LABS: ALB/GLOB RATIO 1.2 (1.1-1.8); ALBUMIN 3.7 g/dL (3.0-4.8)
[2017-10-21] MEDS: Multivitamin Vitamin B Complex (Nephro-Vite) Tab PO SCH (09:03)
[2017-10-21] MEDS: Metoprolol Succinate 25 mg XL Tab PO SCH (09:11)
[2017-10-21 09:45] VITALS: RESP 20
--- NOTE | 2017-10-21 14:21 | CP.PCM.PN ---
<Ember Magaña - Last Filed: 10/21/17 14:16> Subjective - Date & Time of Evaluation Date of Evaluation: 10/21/17 Time of Evaluation: 14:16 - Subjective Subjective: Ember Magaña, PGY1, Medicine Progress Note for Dr Dowling: Patient seen and examined at bedside. No acute events overnight. Pt doing well, tolerating diet, no fever, chills, nausea, vomiting. + involuntary head/hand movements, unchanged. Objective - Vital Signs/Intake and Output Vital Signs (last 24 hours): Temp Pulse Resp BP Pulse Ox 97.8 F 64 20 118/64 92 L 10/21/17 07:30 10/21/17 09:11 10/21/17 07:30 10/21/17 09:11 10/21/17 07:30 Intake and Output: 10/21/17 10/21/17 06:59 18:59 Intake Total 60 Balance 60 - Medications Medications: Current Medications Acetaminophen (Tylenol 325mg Tab) 650 mg PO Q4H PRN PRN Reason: Fever >100.4 F Albuterol/Ipratropium (Duoneb 3 Mg/0.5 Mg (3 Ml) Ud) 3 ml IH [id number] [facility] Last Admin: 10/21/17 13:47 Dose: Not Given Amlodipine Besylate (Norvasc) 10 mg PO DAILY [facility] Last Admin: 10/21/17 09:11 Dose: 10 mg Famotidine (Pepcid) 20 mg PO DAILY [facility] Last Admin: 10/21/17 09:10 Dose: 20 mg Ferrous Gluconate (Fergon) 324 mg PO TID [facility] Last Admin: 10/21/17 13:47 Dose: Not Given Hydralazine HCl (Apresoline) 10 mg IVP Q8H PRN PRN Reason: Systolic Blood Pressure Last Admin: 10/18/17 10:37 Dose: 10 mg Hydralazine HCl (Apresoline) 50 mg PO BID [facility] Sodium Chloride (Sodium Chloride 0.9%) 1,000 mls @ 75 mls/hr IV .[id number] [facility] Stop: 10/22/17 09:31 Metoprolol Succinate (Toprol Xl) 37.5 mg PO DAILY [facility] Last Admin: 10/21/17 09:11 Dose: 37.5 mg Prednisone (Prednisone Tab) 30 mg PO DAILY [facility] Last Admin: 10/21/17 09:10 Dose: 30 mg Sevelamer HCl (Renagel) 800 mg PO TID [facility] Last Admin: 10/21/17 13:47 Dose: Not Given Vitamin B Complex/Vit C/Folic Acid (Nephro-Milagro) 1 tab PO 0800 [facility] Last Admin: 10/21/17 09:03 Dose: 1 tab - Labs Labs: 10/21/17 07:45 10/21/17 07:45 PT 10.7 SECONDS (9.4-12.5) 10/07/17 23:39 INR 0.94 (0.93-1.08) 10/07/17 23:39 APTT 34.5 Seconds (25.1-36.5) 10/07/17 23:39 - Additional Findings Additional findings: - Constitutional Appears: No Acute Distress - Head Exam Head Exam: ATRAUMATIC, NORMOCEPHALIC - Eye Exam Eye Exam: EOMI, Normal appearance - Respiratory Exam Respiratory Exam: Clear to Ausculation Bilateral, NORMAL BREATHING PATTERN. absent: Rales, Rhonchi, Wheezes - Cardiovascular Exam Cardiovascular Exam: REGULAR RHYTHM, +S1, +S2. absent: Tachycardia, Murmur - GI/Abdominal Exam GI & Abdominal Exam: Soft, Normal Bowel Sounds. absent: Distended, Firm, Tenderness - Extremities Exam Extremities Exam: Normal Inspection. absent: Pedal Edema - Neurological Exam Neurological Exam: Alert, Awake, Oriented x3 - Skin Skin Exam: Dry, Intact, Normal Color, Warm Assessment and Plan - Assessment and Plan (Free Text) Assessment: 77 year old female with a past medical history significant for HTN, asthma, Parkinson's, who was admitted for AMS, failure to thrive, AVERY, hypernatremia and found to be in respiratory distress s/p extubation on 10/13. Patient is currently awake, alert, responds to some questions (baseline as per family). Pt tolerating pureed/NTL well. PT evaluation recommends LTC or nurse with 24 hour care (patient's insurance refused [facility] rehab placement). Pt's family on board to take patient home. Pt desaturating at night time, requiring bipap, pulm consulted, will await recs: History of Hypercapneic Respiratory Failure - Noted episode of respiratory distress 3 nights ago - ABG showing mildly elevated CO2 at 46, adequate oxygenation on BiPAP and normal lactate - Chest X-Ray showing NAD - Continue Duonebs [id number] and PO Prednisone 30mg daily - Continue BiPAPat night - Pulm consulted to determine if patient needs home bipap. F/u recs. AVERY in setting of CKD - Likely secondary to dehydration vs. ATN - BUN/Creatinine improving - Continue Renagel and Nephro-Milagro - Continue to monitor with daily CMP's - nephro following Anemia - Likely secondary to CKD - Continue Ferrous Gluconate and Anaresp, per nephro - Continue to monitor with daily CBC's HTN - Continue scheduled toprol 37.5mg, Norvasc 10mg, and Hydralazine 100mg bid - Continue PRN Hydralazine AMS - Resolved - CT Head on admission showed 3mm round hyperdensity in the left temporal lobe inferiorly and could not exclude a tiny acute intraparenchymal bleed, with a repeat CT Head showing similar findings - Echo showed an LVEF of 59% with mild concentric left ventricular function - TSH, Vitamin B12 and Folate WNL - RPR negative - Cogentin discontinued, as EPS symptoms resolved - Neurology following GI Prophylaxis: Pepcid DVT Prophylaxis: SCD's Discussed with Dr Dowling. <Cheyanne Dowling - Last Filed: 10/21/17 14:56> Objective - Vital Signs/Intake and Output Vital Signs (last 24 hours): Temp Pulse Resp BP Pulse Ox 97.8 F 64 20 118/64 92 L 10/21/17 07:30 10/21/17 09:11 10/21/17 07:30 10/21/17 09:11 10/21/17 07:30 Intake and Output: 10/21/17 10/21/17 06:59 18:59 Intake Total 60 Balance 60 - Medications Medications: Current Medications Acetaminophen (Tylenol 325mg Tab) 650 mg PO Q4H PRN PRN Reason: Fever >100.4 F Albuterol/Ipratropium (Duoneb 3 Mg/0.5 Mg (3 Ml) Ud) 3 ml IH [id number] [facility] Last Admin: 10/21/17 13:47 Dose: Not Given Amlodipine Besylate (Norvasc) 10 mg PO DAILY [facility] Last Admin: 10/21/17 09:11 Dose: 10 mg Famotidine (Pepcid) 20 mg PO DAILY [facility] Last Admin: 10/21/17 09:10 Dose: 20 mg Ferrous Gluconate (Fergon) 324 mg PO TID [facility] Last Admin: 10/21/17 13:47 Dose: Not Given Hydralazine HCl (Apresoline) 10 mg IVP Q8H PRN PRN Reason: Systolic Blood Pressure Last Admin: 10/18/17 10:37 Dose: 10 mg Hydralazine HCl (Apresoline) 50 mg PO BID [facility] Sodium Chloride (Sodium Chloride 0.9%) 1,000 mls @ 75 mls/hr IV .[id number] [facility] Stop: 10/22/17 09:31 Metoprolol Succinate (Toprol Xl) 37.5 mg PO DAILY [facility] Last Admin: 10/21/17 09:11 Dose: 37.5 mg Prednisone (Prednisone Tab) 30 mg PO DAILY [facility] Last Admin: 10/21/17 09:10 Dose: 30 mg Sevelamer HCl (Renagel) 800 mg PO TID [facility] Last Admin: 10/21/17 13:47 Dose: Not Given Vitamin B Complex/Vit C/Folic Acid (Nephro-Milagro) 1 tab PO 0800 [facility] Last Admin: 10/21/17 09:03 Dose: 1 tab - Labs Labs: 10/21/17 07:45 10/21/17 07:45 PT 10.7 SECONDS (9.4-12.5) 10/07/17 23:39 INR 0.94 (0.93-1.08) 10/07/17 23:39 APTT 34.5 Seconds (25.1-36.5) 10/07/17 23:39 Attending/Attestation - Attestation I have personally seen and examined this patient.: Yes I have fully participated in the care of the patient.: Yes I have reviewed all pertinent clinical information, including history, physical exam and plan: Yes Notes (Text): 10/21/17 14:55 77 year old female with past medical history of hypertension and asthma /COPD who was admitted with altered mental status and failure to thrive. She was found to have severe hypernatremia and acute on chronic renal failure. She also initially intubated for hypercapnic respiratory failure but later extubated. Few days prior she had episode of respiratory distress which improved with bipap. She is on tapering po prednisone and duonebs. Pulmonary follow up was requested. Case was discussed with Dr. Martinez today. Continue to monitor creatinine and hemoglobin closely. Nephrology is following. Initial CT head showed 3 mm hyperdensity in the left temporal lobe. Neurology is following and ordered for MRI/MRA studies, however patient is unable to stay still and complete MRI. Will follow up with neurology recommendations. Cheyanne Dowling MD Hospitalist.
[2017-10-21] MEDS: Sodium Chloride 0.9% 1,000 ML IV SCH (16:00)
[2017-10-21 16:23] LABS: ARTERIAL BLOOD GAS HEMOGLOBIN 10.2 g/dL (11.7-17.4); ARTERIAL BLOOD GAS O2 CAPACITY 13.8 mL/dl (16-24); ARTERIAL BLOOD GAS O2 CONTENT 12.4 ML/dl (15-23); ARTERIAL BLOOD GAS PCO2 46 mm/Hg (35-45); ARTERIAL BLOOD GAS PH 7.36 (7.35-7.45); ARTERIAL BLOOD GAS TCO2 27.4 mmol.L (22-28)
--- NOTE | 2017-10-21 16:39 | CP.PCM.PN ---
Subjective - Date & Time of Evaluation Date of Evaluation: 10/21/17 Time of Evaluation: 16:38 - Subjective Subjective: Follow up Nephrology Consultation: Assessment: stable Acute Kidney Injury (N17.9) likely dehydration, pre--renal state and ATN Hypernatremia: improved HTN, possible pneumonia, COPD Anemia hypercapnic respi failure likely has underlying CKD ? stage (echogenic kidneys on sono) secondary hyperparathyroidism, hyperphosphatemia Hypercalcemia due to calcitriol +phoslo Plan No acute need for renal replacement therapy at this time. Hypertension control with meds as ordered. Patient not on ACEI/ARB due to AVERY . lowered hydralazine 1 L NS ordered as serum cr was rising Monitor Input/Output, daily weights and renal function with basic metabolic panel continue with free water supplements started oral iron, MVI, and dose of aransep 10/19/17 as 60 mcg d/c phoslo and calcitriol. started renagel Dose meds/antibiotics for reduced GFR. Avoid fleets enema/magnesium based laxatives. Avoid nephrotoxins/NSAIDs/ iodinated contrast (unless needed emergently) Glycemic control Further work up/management as per primary team Thanks for allowing me to participate in care of your patient. Will follow patient with you. Please call if any Qs. had d/w family about current renal function and likely need for dialysis in near future. Dr Hammad Feldman Office: [phone] Chief Complaint; Unable Source of Info: medical chart review HPI: Pt is a 77 y/o F with hx of hypertension, asthma, parkinson disease came with AMS, decreased oral intake, CO2 retention AVERY and hypernatremia hence renal consulted. pt unable to provide any hx No known recent iodinated contrast exposure. No obvious episodes of low BP. ROS: unable. s/p extubation 10/13/17 Physical Examination: General Appearance: elderly appearing female Vitals reviewed and noted as below Head; Atraumatic, normocephalic ENT: on Bipap hence unable EYES: Pupils are equal, round and reactive to light accommodation. Eye muscles and extraocular movement intact. Sclera is anicteric. Neck; supple no lymphadenopathy, no thyromegaly or bruit Lungs: normal respiratory rate/effort. Breath sounds bilateral clear Heart: Normal rate. s1s2 normal. No rub or gallop. Extremities: no edema. No varicose veins Neurological: Patient is awake follows commands but not much verbal/ communicative. having involuntary movements Skin: Warm and dry. Normal turgor. No rash. Palpitation: Normal elasticity for age Abdomen: Abdomen is soft. Bowel sounds +. There is no abdominal tenderness, no guarding/rigidity no organomegaly. has extrapyrimadal movements Psych:unable MSK: no joint tenderness or swelling. Digits and nails normal, no deformity : kidney or bladder not palpable Labs/imaging/EKG reviewed. Past medical history, past surgical history, family history, social history, allergy reviewed and noted as below family hx: unable to obtain renal sono; echogenic kidneys Objective - Vital Signs/Intake and Output Vital Signs (last 24 hours): Temp Pulse Resp BP Pulse Ox 97.8 F 64 20 118/64 92 L 10/21/17 07:30 10/21/17 09:11 10/21/17 07:30 10/21/17 09:11 10/21/17 07:30 Intake and Output: 10/21/17 10/21/17 06:59 18:59 Intake Total 60 360 Balance 60 360 - Medications Medications: Current Medications Acetaminophen (Tylenol 325mg Tab) 650 mg PO Q4H PRN PRN Reason: Fever >100.4 F Albuterol/Ipratropium (Duoneb 3 Mg/0.5 Mg (3 Ml) Ud) 3 ml IH [id number] [facility] Last Admin: 10/21/17 13:47 Dose: Not Given Amlodipine Besylate (Norvasc) 10 mg PO DAILY [facility] Last Admin: 10/21/17 09:11 Dose: 10 mg Famotidine (Pepcid) 20 mg PO DAILY [facility] Last Admin: 10/21/17 09:10 Dose: 20 mg Ferrous Gluconate (Fergon) 324 mg PO TID [facility] Last Admin: 10/21/17 13:47 Dose: Not Given Hydralazine HCl (Apresoline) 10 mg IVP Q8H PRN PRN Reason: Systolic Blood Pressure Last Admin: 10/18/17 10:37 Dose: 10 mg Hydralazine HCl (Apresoline) 50 mg PO BID [facility] Sodium Chloride (Sodium Chloride 0.9%) 1,000 mls @ 75 mls/hr IV .[id number] [facility] Stop: 10/22/17 09:31 Metoprolol Succinate (Toprol Xl) 37.5 mg PO DAILY [facility] Last Admin: 10/21/17 09:11 Dose: 37.5 mg Prednisone (Prednisone Tab) 30 mg PO DAILY [facility] Last Admin: 10/21/17 09:10 Dose: 30 mg Sevelamer HCl (Renagel) 800 mg PO TID [facility] Last Admin: 10/21/17 13:47 Dose: Not Given Vitamin B Complex/Vit C/Folic Acid (Nephro-Milagro) 1 tab PO 0800 [facility] Last Admin: 10/21/17 09:03 Dose: 1 tab - Labs Labs: 10/21/17 07:45 10/21/17 07:45 PT 10.7 SECONDS (9.4-12.5) 10/07/17 23:39 INR 0.94 (0.93-1.08) 10/07/17 23:39 APTT 34.5 Seconds (25.1-36.5) 10/07/17 23:39
--- NOTE | 2017-10-22 04:08 | PN ---
DATE: 10/21/2017 SUBJECTIVE: The patient is seen and examined at bedside. She is comfortable. She is alert and awake. PHYSICAL EXAMINATION: VITAL SIGNS: Temperature 97.8, heart rate 64, blood pressure 119/64, oxygen saturation 92% on room air and respiratory 20. HEENT: Head and neck atraumatic. LUNGS: Clear to auscultation bilaterally. HEART: Regular rate and rhythm. S1 and S2 normal. ABDOMEN: Soft, nontender and nondistended. MUSCULOSKELETAL: No C/C/E. NEUROLOGIC: The patient moves all extremities spontaneously. SKIN: Moist. PSYCHIATRIC: The patient is alert and awake. LABORATORY DATA: WBC 8.4, hemoglobin 9.3 and platelet count 320. Sodium 135, potassium 4.4, chloride 98, carbon dioxide 28, BUN 75, creatinine 4.3, glucose 87, AST 39 and ALT 66. Blood gas from 10/18/2017 showed 7.43/46/144 on 40% FIO2. MEDICATIONS: Tylenol p.r.n., DuoNeb q. 6 hours, Norvasc, hydralazine p.r.n. and 50 mg p.o. b.i.d., metoprolol, prednisone 30 mg daily, Renagel, normal saline 75 mL/hour, vitamin D and vitamin C. ASSESSMENT AND PLAN: This is a 77-year-old lady with chronic obstructive pulmonary disease and asthma (ACOS). She recently recovered from hypercapnic respiratory failure requiring intubation. She was successfully extubated. At present time, she is comfortable. She is not in respiratory or otherwise distress. Her blood gas was done on bilevel positive airway pressure and we will repeat it on room air to make sure that the patient is not retaining CO2 despite resolution of hypercapnic respiratory failure. We will continue with steroid taper, nebulizers/bronchodilators. The patient is to be on anticholinergic inhalers. The patient is afebrile and does not have leukocytosis. She is hemodynamically stable. I have low suspicion for ongoing infection. We will continue with deep venous thrombosis and gastrointestinal prophylaxis. We will continue to target euvolemia, euglycemia, normothermia and oxygen saturation more than 90%. Addendum: abg on room air: 7.36/46/47-->will need fi02 supplementation to maintain 02sat>90. Would recommend repeat ABG in 2 weeks and pulmonary outpatient follow-up. If further C02 build up in the setting of compensating respiratory acidosis nocturnal BPAP application may be considered at that time. Meanwhile triple inhaler therapy (LAMA/LABA/ICS) in any combination (LABA/LAMA+ ICS or ICS/LABA+LAMA) would be recommended; as well as pulmonary rehab, infection prophylaxis with vaccination. ccm time 40 min Maksim Martinez MD [facility]
[2017-10-22 07:02] LABS: BASO # 0.02 K/mm3 (0.0-2.0); BASO % 0.3 % (0.0-3.0); EOS % 0.3 % (1.5-5.0); GRAN # 5.61 (1.4-6.5); HEMOGLOBIN 9.2 g/dL (12.0-16.0); LYMPH % 12.8 % (22.0-35.0); MEAN CELL VOLUME 94.3 fl (80.0-105.0); MEAN CORPUSCULAR HEMOGLOBIN 28.9 pg (25.0-35.0); MEAN CORPUSCULAR HGB CONC 30.7 g/dl (31.0-37.0); MEAN PLATELET VOLUME 9.6 fl (7.0-11.0); MONO # 1.1 (0.1-0.6); MONO % 14.6 % (1.0-6.0); RBC 3.18 10^6/uL (3.5-6.1); RED CELL DISTRIBUTION WIDTH 15.5 % (11.5-14.5); WHITE BLOOD COUNT 7.8 10^3/ul (4.5-11.0)
[2017-10-22] MEDS: Albuterol-Ipratrop 3 mg / 0.5 (3 ml) UD IH SCH ×2 (07:29→13:26)
[2017-10-22 07:52] LABS: ALB/GLOB RATIO 1.2 (1.1-1.8); ALBUMIN 3.6 g/dL (3.0-4.8); CALCIUM 8.6 mg/dL (8.4-10.5)
[2017-10-22] MEDS: Metoprolol Succinate 25 mg XL Tab PO SCH (10:41)
[2017-10-22] MEDS: Multivitamin Vitamin B Complex (Nephro-Vite) Tab PO SCH (10:41)
[2017-10-22] MEDS: Sodium Chloride 0.9% 1,000 ML IV SCH (10:59)
--- NOTE | 2017-10-22 12:25 | CP.PCM.PN ---
Subjective - Date & Time of Evaluation Date of Evaluation: 10/22/17 Time of Evaluation: 12:20 - Subjective Subjective: Ms. Sylvester was seen and examined at the bedside. She is alert, awake, able to utter "i'm fine". She is not able to follow simple commands or answer any questions. She remains with the involuntary head movement. She is very dependent to all her ADL's. She is able to tolerate po intake. There was no untoward events overnight. Objective - Vital Signs/Intake and Output Vital Signs (last 24 hours): Temp Pulse Resp BP Pulse Ox 97.5 F L 85 20 145/98 H 100 10/22/17 07:30 10/22/17 10:41 10/22/17 07:30 10/22/17 10:41 10/22/17 07:30 Intake and Output: 10/22/17 10/22/17 06:59 18:59 Intake Total 360 Balance 360 - Medications Medications: Current Medications Acetaminophen (Tylenol 325mg Tab) 650 mg PO Q4H PRN PRN Reason: Fever >100.4 F Albuterol/Ipratropium (Duoneb 3 Mg/0.5 Mg (3 Ml) Ud) 3 ml IH [id number] [facility] Last Admin: 10/22/17 07:29 Dose: 3 ml Amlodipine Besylate (Norvasc) 10 mg PO DAILY [facility] Last Admin: 10/22/17 10:41 Dose: 10 mg Famotidine (Pepcid) 20 mg PO DAILY [facility] Last Admin: 10/22/17 10:41 Dose: 20 mg Ferrous Gluconate (Fergon) 324 mg PO TID [facility] Last Admin: 10/22/17 10:41 Dose: 324 mg Hydralazine HCl (Apresoline) 10 mg IVP Q8H PRN PRN Reason: Systolic Blood Pressure Last Admin: 10/18/17 10:37 Dose: 10 mg Hydralazine HCl (Apresoline) 50 mg PO Q8 [facility] Metoprolol Succinate (Toprol Xl) 37.5 mg PO DAILY [facility] Last Admin: 10/22/17 10:41 Dose: 37.5 mg Prednisone (Prednisone Tab) 30 mg PO DAILY [facility] Last Admin: 10/22/17 10:40 Dose: 30 mg Sevelamer HCl (Renagel) 800 mg PO TID [facility] Last Admin: 10/22/17 10:40 Dose: 800 mg Vitamin B Complex/Vit C/Folic Acid (Nephro-Milagro) 1 tab PO 0800 [facility] Last Admin: 10/22/17 10:41 Dose: 1 tab - Labs Labs: 10/22/17 06:20 10/22/17 06:20 PT 10.7 SECONDS (9.4-12.5) 10/07/17 23:39 INR 0.94 (0.93-1.08) 10/07/17 23:39 APTT 34.5 Seconds (25.1-36.5) 10/07/17 23:39 - Constitutional Appears: No Acute Distress - Head Exam Head Exam: NORMAL INSPECTION - Neurological Exam Neurological Exam: Alert, Awake Neuro motor strength exam: Left Upper Extremity: 3, Right Upper Extremity: 3, Left Lower Extremity: 3, Right Lower Extremity: 3 Additional comments: Neurological unchanged from previous examination. Assessment and Plan (1) Toxic metabolic encephalopathy Assessment & Plan: Case discussed with Dr. Matias, continue all current medical therapy. Recommend to treat any electrolyte abnormality. With regards of her previous result of CT of the head, still recommending MRI of the brain without contrast. Status: Acute
--- NOTE | 2017-10-22 14:45 | CP.PCM.PN ---
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 Hypertension control with meds as ordered. Patient not on ACEI/ARB due to advanced CKD. Monitor Input/Output, daily weights and renal function with basic metabolic panel continue with free water supplements started oral iron, MVI, and dose of aransep 10/19/17 as 60 mcg d/c phoslo and calcitriol. started renagel Dose meds/antibiotics for reduced GFR. Avoid fleets enema/magnesium based laxatives. Avoid nephrotoxins/NSAIDs/ iodinated contrast (unless needed emergently) Glycemic control Further work up/management as per primary team pt planned for d/c today. stable from renal perspective with close outpt renal follow up Thanks for allowing me to participate in care of your patient. Will follow patient with you. Please call if any Qs. d/w team had d/w family about current renal function and likely need for dialysis in near future. Dr Hammad Feldman Office: [phone] Chief Complaint; Unable Source of Info: medical chart review HPI: Pt is a 77 y/o F with hx of hypertension, asthma, parkinson disease came with AMS, decreased oral intake, CO2 retention AVERY and hypernatremia hence renal consulted. pt unable to provide any hx No known recent iodinated contrast exposure. No obvious episodes of low BP. ROS: unable. s/p extubation 10/13/17 Physical Examination: General Appearance: elderly appearing female Vitals reviewed and noted as below Head; Atraumatic, normocephalic ENT: on Bipap hence unable EYES: Pupils are equal, round and reactive to light accommodation. Eye muscles and extraocular movement intact. Sclera is anicteric. Neck; supple no lymphadenopathy, no thyromegaly or bruit Lungs: normal respiratory rate/effort. Breath sounds bilateral clear Heart: Normal rate. s1s2 normal. No rub or gallop. Extremities: no edema. No varicose veins Neurological: Patient is awake follows commands but not much verbal/ communicative. having involuntary movements Skin: Warm and dry. Normal turgor. No rash. Palpitation: Normal elasticity for age Abdomen: Abdomen is soft. Bowel sounds +. There is no abdominal tenderness, no guarding/rigidity no organomegaly. has extrapyrimadal movements Psych:unable MSK: no joint tenderness or swelling. Digits and nails normal, no deformity : kidney or bladder not palpable Labs/imaging/EKG reviewed. Past medical history, past surgical history, family history, social history, allergy reviewed and noted as below family hx: unable to obtain renal sono; echogenic kidneys Objective - Vital Signs/Intake and Output Vital Signs (last 24 hours): Temp Pulse Resp BP Pulse Ox 97.5 F L 85 20 145/85 100 10/22/17 07:30 10/22/17 13:55 10/22/17 07:30 10/22/17 13:55 10/22/17 07:30 Intake and Output: 10/22/17 10/22/17 06:59 18:59 Intake Total 360 120 Balance 360 120 - Medications Medications: Current Medications Acetaminophen (Tylenol 325mg Tab) 650 mg PO Q4H PRN PRN Reason: Fever >100.4 F Albuterol/Ipratropium (Duoneb 3 Mg/0.5 Mg (3 Ml) Ud) 3 ml IH [id number] [facility] Last Admin: 10/22/17 13:26 Dose: Not Given Amlodipine Besylate (Norvasc) 10 mg PO DAILY [facility] Last Admin: 10/22/17 10:41 Dose: 10 mg Famotidine (Pepcid) 20 mg PO DAILY [facility] Last Admin: 10/22/17 10:41 Dose: 20 mg Ferrous Gluconate (Fergon) 324 mg PO TID [facility] Last Admin: 10/22/17 13:55 Dose: 324 mg Hydralazine HCl (Apresoline) 10 mg IVP Q8H PRN PRN Reason: Systolic Blood Pressure Last Admin: 10/18/17 10:37 Dose: 10 mg Hydralazine HCl (Apresoline) 50 mg PO Q8 [facility] Last Admin: 10/22/17 13:55 Dose: 50 mg Metoprolol Succinate (Toprol Xl) 37.5 mg PO DAILY [facility] Last Admin: 10/22/17 10:41 Dose: 37.5 mg Prednisone (Prednisone Tab) 30 mg PO DAILY [facility] Last Admin: 10/22/17 10:40 Dose: 30 mg Sevelamer HCl (Renagel) 800 mg PO TID [facility] Last Admin: 10/22/17 13:55 Dose: 800 mg Vitamin B Complex/Vit C/Folic Acid (Nephro-Milagro) 1 tab PO 0800 [facility] Last Admin: 10/22/17 10:41 Dose: 1 tab - Labs Labs: 10/22/17 06:20 10/22/17 06:20 PT 10.7 SECONDS (9.4-12.5) 10/07/17 23:39 INR 0.94 (0.93-1.08) 10/07/17 23:39 APTT 34.5 Seconds (25.1-36.5) 10/07/17 23:39
[2017-10-22 19:09] VITALS: BP 114/67; PULSE 74; TEMP 97.9; O2SAT 93
--- NOTE | 2017-10-22 22:13 | CP.PCM.DIS ---
Provider - Provider Date of Admission: 10/08/17 10:00 Attending physician: Cheyanne Dowling MD Hospital Course - Lab Results Lab Results: Micro Results 10/08/17 13:42 Naris MRSA Culture (Admit) - Final MRSA NOT DETECTED Most Recent Lab Values WBC 7.8 10^3/ul (4.5-11.0) 10/22/17 06:20 RBC 3.18 10^6/uL (3.5-6.1) L 10/22/17 06:20 Hgb 9.2 g/dL (12.0-16.0) L 10/22/17 06:20 Hct 30.0 % (36.0-48.0) L 10/22/17 06:20 MCV 94.3 fl (80.0-105.0) 10/22/17 06:20 MCH 28.9 pg (25.0-35.0) 10/22/17 06:20 MCHC 30.7 g/dl (31.0-37.0) L 10/22/17 06:20 RDW 15.5 % (11.5-14.5) H 10/22/17 06:20 Plt Count 329 10^3/uL (120.0-450.0) 10/22/17 06:20 MPV 9.6 fl (7.0-11.0) 10/22/17 06:20 Gran % 72.0 % (50.0-68.0) H 10/22/17 06:20 Lymph % (Auto) 12.8 % (22.0-35.0) L 10/22/17 06:20 [place] % (Auto) 14.6 % (1.0-6.0) H 10/22/17 06:20 Eos % (Auto) 0.3 % (1.5-5.0) L 10/22/17 06:20 Baso % (Auto) 0.3 % (0.0-3.0) 10/22/17 06:20 Gran # 5.61 (1.4-6.5) 10/22/17 06:20 Lymph # (Auto) 1.0 (1.2-3.4) L 10/22/17 06:20 [place] # (Auto) 1.1 (0.1-0.6) H 10/22/17 06:20 Eos # (Auto) 0.0 (0.0-0.7) 10/22/17 06:20 Baso # (Auto) 0.02 K/mm3 (0.0-2.0) 10/22/17 06:20 Neutrophils % (Manual) 93 % (50.0-70.0) H 10/12/17 06:30 Band Neutrophils % 1 % (0-2) 10/12/17 06:30 Lymphocytes % (Manual) 3 % (22.0-35.0) L 10/12/17 06:30 Monocytes % (Manual) 3 % (1.0-6.0) 10/12/17 06:30 Platelet Evaluation Normal (NORMAL) 10/12/17 06:30 PT 10.7 SECONDS (9.4-12.5) 10/07/17 23:39 INR 0.94 (0.93-1.08) 10/07/17 23:39 APTT 34.5 Seconds (25.1-36.5) 10/07/17 23:39 pCO2 46 mm/Hg (35-45) H 10/21/17 15:45 pO2 47.0 mm/Hg (80-100) L 10/21/17 15:45 HCO3 26.0 mmol/L (21-28) 10/21/17 15:45 ABG pH 7.36 (7.35-7.45) 10/21/17 15:45 ABG Total CO2 27.4 mmol.L (22-28) 10/21/17 15:45 ABG O2 Saturation 90.0 % (95-98) L 10/21/17 15:45 ABG O2 Content 12.4 ML/dl (15-23) L 10/21/17 15:45 ABG Base Excess 0.3 mmol/L (-2.0-3.0) 10/21/17 15:45 ABG Hemoglobin 10.2 g/dL (11.7-17.4) L 10/21/17 15:45 ABG Carboxyhemoglobin 2.4 % (0.5-1.5) H 10/21/17 15:45 POC ABG HHb (Measured) 9.6 % (0-5) H 10/21/17 15:45 ABG Methemoglobin 1.3 % (0.0-3.0) 10/21/17 15:45 ABG O2 Capacity 13.8 mL/dl (16-24) L 10/21/17 15:45 ABG Potassium 3.4 mmol/L (3.6-5.2) L 10/18/17 10:00 Sodium 143.0 mmol/L (132-148) 10/18/17 10:00 Chloride 106.0 mmol/L (98-107) 10/18/17 10:00 Glucose 106 mg/dl (65-105) H 10/18/17 10:00 Lactate 0.6 mmol/L (0.7-2.1) L 10/18/17 10:00 Hgb O2 Saturation 86.7 % (95.0-98.0) L 10/21/17 15:45 Inspiratory BiPAP 12 10/18/17 10:00 FiO2 21.0 % 10/21/17 15:45 Sodium 141 mmol/L (132-148) 10/22/17 06:20 Potassium 4.5 mmol/L (3.6-5.0) 10/22/17 06:20 Chloride 104 mmol/L (98-107) 10/22/17 06:20 Carbon Dioxide 26 mmol/L (21-33) 10/22/17 06:20 Anion Gap 16 (10-20) 10/22/17 06:20 BUN 77 mg/dL (7-21) H 10/22/17 06:20 Creatinine 4.4 mg/dl (0.7-1.2) H 10/22/17 06:20 Est GFR ( Amer) 12 10/22/17 06:20 Est GFR (Non-Af Amer) 10 10/22/17 06:20 POC Glucose (mg/dL) 89 mg/dL (65-110) 10/10/17 22:08 Random Glucose 88 mg/dL (70-110) 10/22/17 06:20 Uric Acid 10.2 mg/dL (2.5-6.2) H 10/08/17 13:10 Calcium 8.6 mg/dL (8.4-10.5) 10/22/17 06:20 Phosphorus 4.9 mg/dL (2.5-4.5) H 10/19/17 06:30 Magnesium 2.3 mg/dL (1.7-2.2) H 10/16/17 06:00 Iron 83 ug/dL (45-180) 10/08/17 19:28 TIBC 198 ug/dL (265-497) L 10/08/17 19:28 % Saturation 42 % (20-55) 10/08/17 19:28 Ferritin 208.0 ng/mL 10/08/17 13:10 Total Bilirubin 0.3 mg/dL (0.2-1.3) 10/22/17 06:20 AST 40 U/L (14-36) H 10/22/17 06:20 ALT 54 U/L (7-56) 10/22/17 06:20 Alkaline Phosphatase 75 U/L (38-126) 10/22/17 06:20 Ammonia 14 umol/L (9-33) 10/07/17 23:39 Lactate Dehydrogenase 661 U/L (333-699) 10/07/17 23:39 Total Creatine Kinase 83 U/L (35-230) 10/07/17 23:39 Troponin I 0.06 ng/mL 10/07/17 23:39 Total Protein (PEP) 6.4 g/dL (6.1-8.1) 10/09/17 06:00 Albumin (PEP) 3.4 g/dL (3.8-4.8) L 10/09/17 06:00 Ddnkv-7-Jhxrvxfxr 0.5 g/dL (0.2-0.3) H 10/09/17 06:00 Ovbqg-2-Bjixjtyvy 0.7 g/dL (0.5-0.9) 10/09/17 06:00 Jtbi-4-Fykvvpfb 0.4 g/dL (0.4-0.6) 10/09/17 06:00 Dgpu-0-Bmznhnag 0.4 g/dL (0.2-0.5) 10/09/17 06:00 Gamma Globulins 1.0 g/dL (0.8-1.7) 10/09/17 06:00 Total Protein 6.5 g/dL (5.8-8.3) 10/22/17 06:20 Albumin 3.6 g/dL (3.0-4.8) 10/22/17 06:20 Abnorm Protein Band 1 TEST NOT PERFORMED 10/09/17 06:00 Abnorm Protein Band 2 TEST NOT PERFORMED 10/09/17 06:00 Abnorm Protein Band 3 TEST NOT PERFORMED 10/09/17 06:00 Globulin 2.9 gm/dL 10/22/17 06:20 Albumin/Globulin Ratio 1.2 (1.1-1.8) 10/22/17 06:20 Vitamin B12 > 1000 pg/mL (239-931) H 10/08/17 05:50 25-OH Vitamin D Total 44.5 NG/ML (30.0-100.0) 10/08/17 19:28 Folate > 20.0 ng/mL 10/08/17 05:50 Procalcitonin 0.53 NG/ML (0.19-0.49) H 10/09/17 06:00 TSH 3rd Generation 0.94 mIU/mL (0.46-4.68) 10/08/17 05:50 Calcium (PTH Intact) 8.8 mg/dL (8.6-10.4) 10/09/17 08:00 PTH w/Ion &Tot Calcium 342 pg/mL (14-64) H 10/09/17 08:00 Arterial Blood Potassium 3.4 mmol/L (3.6-5.2) L 10/18/17 10:00 Urine Color Yellow (YELLOW) 10/08/17 03:03 Urine Appearance Clear (CLEAR) 10/08/17 03:03 Urine pH 6.0 (4.7-8.0) 10/08/17 03:03 Ur Specific [place] 1.015 (1.005-1.035) 10/08/17 03:03 Urine Protein 100 mg/dL (<30 mg/dL) H 10/08/17 03:03 Urine Glucose (UA) Negative mg/dL (NEGATIVE) 10/08/17 03:03 Urine Ketones Negative mg/dL (NEGATIVE) 10/08/17 03:03 Urine Blood Trace-intact (NEGATIVE) H 10/08/17 03:03 Urine Nitrate Negative (NEGATIVE) 10/08/17 03:03 Urine Bilirubin Negative (NEGATIVE) 10/08/17 03:03 Urine Urobilinogen 0.2 E.U./dL (<1 E.U./dL) 10/08/17 03:03 Ur Leukocyte Esterase Negative [place]/uL (NEGATIVE) 10/08/17 03:03 Urine RBC 0 - 2 /hpf (0-2) 10/08/17 03:03 Urine WBC 0 - 2 /hpf (0-6) 10/08/17 03:03 Ur Epithelial Cells 0 - 2 /hpf (0-5) 10/08/17 03:03 Ur Random Creatinine 66 mg/dL 10/08/17 18:02 U Random Total Protein 69 mg/L 10/08/17 18:02 Ur Random Sodium 63 meq/L 10/08/17 18:02 Ur Random Potassium 33.8 meq/L 10/08/17 18:02 Urine Opiates Screen Negative (NEGATIVE) 10/08/17 03:03 Urine Methadone Screen Negative (NEGATIVE) 10/08/17 03:03 Acetaminophen < 10.0 ug/ml (10.0-20.0) L 10/07/17 23:39 Ur Barbiturates Screen Negative (NEGATIVE) 10/08/17 03:03 Ur Phencyclidine Scrn Negative (NEGATIVE) 10/08/17 03:03 Ur Amphetamines Screen Negative (NEGATIVE) 10/08/17 03:03 U Benzodiazepines Scrn Negative (NEGATIVE) 10/08/17 03:03 U Oth Cocaine Metabols Negative (NEGATIVE) 10/08/17 03:03 U Cannabinoids Screen Negative (NEGATIVE) 10/08/17 03:03 Alcohol, Quantitative < 10 mg/dL (0-10) 10/07/17 23:39 DEBBIE & SPEP Interp See note 10/09/17 06:00 Serum Immunofixation Not detected (Not Detected) 10/09/17 06:00 Tot [place]/Lambda Ratio 2.01 (1.29-2.55) 10/09/17 06:00 [place] Light Chain Anal 279 mg/dL (176-443) 10/09/17 06:00 Lambda Light Chain Anal 139 mg/dL (91-240) 10/09/17 06:00 RPR Nonreactive (NONREACTIVE) 10/08/17 05:50 Influenza Typ A,B (EIA) Negative for flu a/b (NEGATIVE) 10/08/17 01:04 Discharge Exam - Head Exam Head Exam: NORMAL INSPECTION Discharge Plan - Discharge Medications Prescriptions: amLODIPine [Norvasc] 10 mg PO DAILY 30 Days tab Famotidine [Pepcid] 20 mg PO DAILY 30 Days tab Ferrous Gluconate [Fergon] 324 mg PO TID 30 Days tab hydrALAZINE [Apresoline] 50 mg PO Q8 30 Days tab Metoprolol Succinate [Toprol XL] 37.5 mg PO DAILY 30 Days tab predniSONE [predniSONE Tab] 30 mg PO DAILY #2 tab predniSONE [Prednisone] 10 mg PO DAILY #3 tab predniSONE [Prednisone] 20 mg PO DAILY #3 tab predniSONE [predniSONE Tab] 5 mg PO DAILY #2 tab Sevelamer [Renagel] 800 mg PO TID 30 Days tab Vitamin B Complex/Vit C/Folic [Nephro-Milagro] 1 tab PO 0800 30 Days tab - Follow Up Plan Condition: SERIOUS Disposition: HOME/ ROUTINE Instructions: Failure to Thrive (DC), Pneumococcal Vaccine for Adults (DC), Acute Kidney Injury (GEN), Influenza Vaccine (DC), Altered Mental Status (GEN), Fall Prevention (DC), Endotracheal Tube (GEN), Hypernatremia (DC) Additional Instructions: - Take the medications as given. - Follow up with pulmonary doctor in 2 weeks to have an arterial blood gas done. ABG reading from 10/21/17 shows pH 7.36, pCO2 of 46, bicarb 26, pO2 of 47 on 21% FiO2. She will need to follow up with a pulmonary doctor to see if she needs a bipap machine at home. - Your kidney function was also noted to be damaged. Follow up with wood floor layer in 1 week for chronic kidney disease evaluation and proper management. - Follow up with a primary care doctor in 1 week. - Return to ER if any concerns.
== END 2017-10-22 19:30 | disposition home or self-care (01) | DRG 881 ==
LOC: ED 23:06 → UNDOADMIN 10-08 02:33 → ERH 10-08 02:33 → ICU 10-08 12:14 → 5RNO 10-16 18:32
PROVIDERS: ADMIT Internal Medicine; ATTEND Internal Medicine
PROC: 0BH17EZ Insertion of Endotracheal Airway into Trachea, Via Natural or Artificial Opening (ICD-10-PCS; 2017-10-08)
PROC: 5A09357 Assistance with Respiratory Ventilation, Less than 24 Consecutive Hours, Continuous Positive Airway Pressure (ICD-10-PCS; 2017-10-08)
PROC: 3E0F7GC Introduction of Other Therapeutic Substance into Respiratory Tract, Via Natural or Artificial Opening (ICD-10-PCS; 2017-10-08)
PROC: 5A1955Z Respiratory Ventilation, Greater than 96 Consecutive Hours (ICD-10-PCS; principal; 2017-10-09)
PROC: 02HV33Z Insertion of Infusion Device into Superior Vena Cava, Percutaneous Approach (ICD-10-PCS; 2017-10-09)
PROC: B548ZZA Ultrasonography of Superior Vena Cava, Guidance (ICD-10-PCS; 2017-10-09)
DX: J96.92 Respiratory failure, unspecified with hypercapnia (principal); G92 Toxic encephalopathy; N17.0 Acute kidney failure with tubular necrosis; E87.0 Hyperosmolality and hypernatremia; R13.10 Dysphagia, unspecified; E83.52 Hypercalcemia; E87.2 Acidosis; E86.0 Dehydration; E87.5 Hyperkalemia; J44.9 Chronic obstructive pulmonary disease, unspecified; I12.0 Hypertensive chronic kidney disease with stage 5 chronic kidney disease or end stage renal disease; N18.5 Chronic kidney disease, stage 5; F03.90 Unspecified dementia, unspecified severity, without behavioral disturbance, psychotic disturbance, mood disturbance, and anxiety; G20 Parkinson's disease; R62.7 Adult failure to thrive; D64.9 Anemia, unspecified; N25.81 Secondary hyperparathyroidism of renal origin; Z78.1 Physical restraint status; Z91.81 History of falling

== ENCOUNTER 2017-11-01 14:33 | Inpatient (IN) | payer MEDICAID ==
[2017-11-01 14:40] VITALS: BMI 18.6
[2017-11-01] MEDS ORDERED: Sodium Chloride 0.9% 1,000 ML IV SCH (15:15)
--- NOTE | 2017-11-01 15:16 | ED PDOC ---
Arrival/HPI - General Chief Complaint: Altered Mental Status Time Seen by Provider: 11/01/17 14:46 Historian: Family - History of Present Illness Narrative History of Present Illness (Text): 11/01/17 15:08 A 77 year old female, whose past medical history includes dementia, whom is accompanied by , presents to the emergency department complaining of increasing confusion for the past few days. Per family member, patient is not acting herself. Patient no longer eating normally or drinking enough fluids. Patient is nonverbal. Family member states patient was brought into ER 3 weeks ago for shortness of breath. Patient had difficulty breathing and was placed a tube (x 7 days). After tube was taken out, patient went into therapy and was discharged 1 1/2 weeks ago. Since then, patients condition has become worse. Patient was suppose to return within 2 weeks for follow-up appointment, however family member became concerned and brought patient for evaluation of symptoms. Notes patient also experiencing harsh coughing. Also, it is mentioned patient's PMD is in [place]. PMD: Resides in [place] Symptom Onset: Gradual Symptom Course: Unchanged, Worsening Past Medical History - Provider Review Nursing Documentation Reviewed: Yes - Reproductive Menopause: Yes - Cardiac Hx Hypertension: Yes Hx Pacemaker: No - Pulmonary Hx Asthma: Yes - Neurological HX Cerebrovascular Accident: (questionable cva in [place] 2006) Hx Parkinson's Disease: Yes (questionable) Other/Comment: uncontrollable twitching, jittery,short term memory loss, forgetful since 2010 worsening 2013, difficulty walking - HEENT Hx Cataracts: Yes (left eye) - Hematological/Oncological Hx Cancer: No - Integumentary Other/Comment: dry skin ble - Musculoskeletal/Rheumatological Hx Falls: Yes (recent frequent) - Gastrointestinal Hx Gastroesophageal Reflux: Yes - Psychiatric Hx Substance Use: No - Surgical History Hx Mastectomy: No Family/Social History - Physician Review Nursing Documentation Reviewed: Yes Family/Social History: No Known Family HX Smoking Status: Never Smoked Hx Alcohol Use: No Hx Substance Use: No Allergies/Home Meds Allergies/Adverse Reactions: Allergies No Known Allergies Allergy (Verified 11/01/17 14:45) Review of Systems - Physician Review All systems were reviewed & negative as marked: Yes - Review of Systems Respiratory: Cough Psychiatric: Other (increased confusion and nonverbal) Physical Exam Vital Signs Reviewed: Yes Vital Signs Temp Pulse Resp BP Pulse Ox 11/01/17 15:08 98.3 F 80 18 169/97 H 99 Temperature: Afebrile Blood Pressure: Hypertensive Pulse: Regular Respiratory Rate: Normal Appearance: Positive for: Other (mildly deyhydrated) Mental Status: Positive for: Lethargic (nonverbal) Finger Stick Blood Glucose: 118 - Systems Exam Respiratory/Chest: Present: Decreased Breath Sounds (left side; clear to right side) Cardiovascular: Present: Regular Rate and Rhythm, Normal S1, S2. No: Murmurs Abdomen: Present: Normal Bowel Sounds. No: Tenderness, Distention, Peritoneal Signs, Mass/Organomegaly Neurological: No: Speech Normal (nonverbal), Other (no focal deficits) Psychiatric: Present: Lethargic Medical Decision Making ED Course and Treatment: 11/01/17 15:12 Impression: 77 year old female with increasing confusion and AMS. Physical exam shows patient is mildly dehydrated, lethargic, and nonverbal; decreased breath sounds to left side, while right side is clear; no focal deficits. Plan: -- EKG -- Chest X-ray -- Labs -- IV Fluids -- Reassess and disposition Prior Visits: Notes and results from previous visits were reviewed. Patient was last seen in the emergency department on 10/08/2017 for shortness of breath and AMS. Patient was admitted. Progress Notes: 11/01/2017 15:52 Chest X-ray IMPRESSION: No active disease. No significant interval change compared to the prior examination(s). Dictator: Andrew Barrow MD - Lab Interpretations Lab Results: 11/01/17 15:35 11/01/17 15:35 Lab Results 11/01/17 15:35: Sodium 166 H*, Potassium 5.1 H, Chloride 119 H, Carbon Dioxide 37 H, Anion Gap 15, BUN 71 H, Creatinine 5.4 H, Est GFR ( Amer) 9, Est GFR (Non-Af Amer) 8, Random Glucose 129 H, Calcium 10.0, Total Bilirubin 0.4, AST 29, ALT 32, Alkaline Phosphatase 103, Total Protein 6.6, Albumin 3.6, Globulin 3.1, Albumin/Globulin Ratio 1.2 11/01/17 15:35: WBC 5.7 D, RBC 3.68, Hgb 10.8 L, Hct 39.9, MCV 108.4 H D, MCH 29.3, MCHC 27.1 L, RDW 17.9 H, Plt Count 160, MPV 11.3 H, Gran % 76.4 H, Lymph % (Auto) 14.3 L, [place] % (Auto) 8.2 H, Eos % (Auto) 0.9 L, Baso % (Auto) 0.2, Gran # 4.39, Lymph # (Auto) 0.8 L, [place] # (Auto) 0.5, Eos # (Auto) 0.1, Baso # ( Auto) 0.01 I have reviewed the lab results: Yes - RAD Interpretation Radiology Orders: 11/01/17 15:09 CHEST PORTABLE [RAD] Stat 11/01/17 17:08 HEAD W/O CONTRAST [CT] Stat - Medication Orders Current Medication Orders: Sodium Chloride (Sodium Chloride 0.9%) 1,000 mls @ 100 mls/hr IV .Q10H DAVID Last Admin: 11/01/17 15:55 Dose: 100 mls/hr eMAR Start Stop Document 11/01/17 15:55 EWO (Rec: 11/01/17 15:55 EWO [id number]) Intravenous Solution Start Date 11/01/17 Start Time 15:55 - Scribe Statement The provider has reviewed the documentation as recorded by the Diomedes Soto Provider Scribe Attestation: All medical record entries made by the Scribe were at my direction and personally dictated by me. I have reviewed the chart and agree that the record accurately reflects my personal performance of the history, physical exam, medical decision making, and the department course for this patient. I have also personally directed, reviewed, and agree with the discharge instructions and disposition. Disposition/Present on Arrival - Present on Arrival Any Indicators Present on Arrival: No History of DVT/PE: No History of Uncontrolled Diabetes: No Urinary Catheter: No History of Decub. Ulcer: No History Surgical Site Infection Following: None - Disposition Have Diagnosis and Disposition been Completed?: Yes Diagnosis: Hypernatremia, CKD (chronic kidney disease), Failure to thrive Disposition: HOSPITALIZED Disposition Time: 17:15 Patient Plan: ICU Condition: SERIOUS Referrals: Rene Troy, [Primary Care Provider] - Follow up with primary Forms: [employer] (Russian)
--- NOTE | 2017-11-01 15:53 | RAD ---
HISTORY: Cough. COMPARISON: 10/18/2017 FINDINGS: LUNGS: No active pulmonary disease. PLEURA: No significant pleural effusion identified, no pneumothorax apparent. CARDIOVASCULAR: Cardiomegaly. No evidence of acute, significant cardiovascular disease. OSSEOUS STRUCTURES: No significant abnormalities. VISUALIZED UPPER ABDOMEN: Normal. OTHER FINDINGS: None. IMPRESSION: No active disease. No significant interval change compared to the prior examination(s).
[2017-11-01 16:13] LABS: ALB/GLOB RATIO 1.2 (1.1-1.8); ALBUMIN 3.6 g/dL (3.0-4.8)
[2017-11-01 16:14] LABS: BASO # 0.01 K/mm3 (0.0-2.0); BASO % 0.2 % (0.0-3.0); EOS # 0.1 (0.0-0.7); EOS % 0.9 % (1.5-5.0); GRAN # 4.39 (1.4-6.5); GRAN % 76.4 % (50.0-68.0); HEMOGLOBIN 10.8 g/dL (12.0-16.0); LYMPH # 0.8 (1.2-3.4); LYMPH % 14.3 % (22.0-35.0); MEAN CELL VOLUME 108.4 fl (80.0-105.0); MEAN CORPUSCULAR HEMOGLOBIN 29.3 pg (25.0-35.0); MEAN CORPUSCULAR HGB CONC 27.1 g/dl (31.0-37.0); MEAN PLATELET VOLUME 11.3 fl (7.0-11.0); MONO # 0.5 (0.1-0.6); MONO % 8.2 % (1.0-6.0); RBC 3.68 10^6/uL (3.5-6.1); RED CELL DISTRIBUTION WIDTH 17.9 % (11.5-14.5); WHITE BLOOD COUNT 5.7 10^3/ul (4.5-11.0)
--- NOTE | 2017-11-01 17:30 | CP.PCM.CON ---
History of Present Illness - History of Present Illness History of Present Illness: CRITICAL CARE CONSULT NOTE HPI Patient is 77yo female with PMhx of moderate dementia, COPD, HTN, CKD, ?CVA in the past, presented with weakness, lethargy, and fatigue. Pt recently discharged from hospital for hypercapnic resp failure, requiring intubation, subsequently extubated, and discharged home, to rehab. As per the ER, who stated that the patients family members found her to be lethargic, less interactive, with decreased PO intake. Pt is awake, non verbal, cannot provide any history. No endorsed history of fever, chills, cough, chest pain, sob, HOOKS, dizziness. No other constitutional symptoms. PMHx as above PSHx as above Allergies NKDA Meds as per EMR ROS as above FHx NC Review of Systems - Review of Systems Review of Systems: as per hpi Past Patient History - Past Social History Smoking Status: Never Smoked - CARDIAC Hx Hypertension: Yes Hx Pacemaker: No - PULMONARY Hx Asthma: Yes - NEUROLOGICAL HX Cerebrovascular Accident: (questionable cva in [place] 2006) Hx Parkinson's Disease: Yes (questionable) Other/Comment: uncontrollable twitching, jittery,short term memory loss, forgetful since 2010 worsening 2013, difficulty walking - HEENT Hx Cataracts: Yes (left eye) - HEMATOLOGICAL/ONCOLOGICAL Hx Cancer: No - INTEGUMENTARY Other/Comment: dry skin ble - MUSCULOSKELETAL/RHEUMATOLOGICAL Hx Falls: Yes (recent frequent) - GASTROINTESTINAL Hx Gastroesophageal Reflux: Yes - PSYCHIATRIC Hx Substance Use: No - SURGICAL HISTORY Hx Mastectomy: No Meds Allergies/Adverse Reactions: Allergies Allergy/AdvReac Type Severity Reaction Status Date / Time No Known Allergies Allergy Verified 11/01/17 14:45 - Medications Medications: Current Medications Dextrose (Dextrose 5% In Water 1000 Ml) 1,000 mls @ 100 mls/hr IV .Q10H DAVID Physical Exam - Constitutional Appears: Non-toxic, Confused, Cachectic, Chronically Ill - Eye Exam Eye Exam: Normal appearance - ENT Exam ENT Exam: Mucous Membranes Dry - Respiratory Exam Respiratory Exam: Clear to Auscultation Bilateral, NORMAL BREATHING PATTERN - Cardiovascular Exam Cardiovascular Exam: REGULAR RHYTHM, +S1, +S2 - GI/Abdominal Exam GI & Abdominal Exam: Normal Bowel Sounds, Soft - Extremities Exam Extremities exam: Positive for: normal inspection - Neurological Exam Neurological exam: Altered Results - Vital Signs Recent Vital Signs: Last Vital Signs Temp 98.3 F 11/01/17 15:08 Pulse 80 11/01/17 15:08 Resp 18 11/01/17 15:08 BP 169/97 H 11/01/17 15:08 Pulse Ox 99 11/01/17 15:08 - Labs Result Diagrams: 11/01/17 15:35 11/01/17 15:35 - Imaging and Cardiology Chest x-ray Status: Image reviewed by me, Report reviewed by me Assessment & Plan - Assessment and Plan (Free Text) Assessment: 77yo female a/w AMS, lethargy, hypernatremia AMS Lethargy Hypernatremia Dehydration Acute on Chronic renal failure COPD - currently afebrile, HD stable, comfortable, in NAD, lying in bed, opens eyes to name, does not follow commands - labs with hypernatremia, acute on CKD - CXR without focal consolidation, WBC wnl Recommend: - supp o2 as needed - jessica culture, check procal - BCX, UCx - BP control - NPO - speech swallow eval - CT head without contrast - check TSH, Ulytes - IVF, D5W @ 100cc/hr (free water deficit ~2.2L) - monitor BMP q6hr - renal consult - monitor HH - FS control - GI ppx - DVT ppx - Monitor in MICU Critical care time 35 minutes
--- NOTE | 2017-11-01 18:19 | CP.PCM.HP ---
History of Present Illness - History of Present Illness History of Present Illness: Ember Magaña, PGY1, H&P for Dr Langley: CC: AMS, decreased PO intake 77 year old female, whose past medical history includes dementia, asthma, HTN, nonverbal (at baseline) brought in by family to ED for AMS. At time of my examination, no family member at bedside. HPI obtained from previous records, ED charts, nursing staff. Per family member, pt is not "acting herself." Pt has decreased PO intake of food/liquids. Pt recently discharged from [facility] [place] [place] 10/22/17 for similar presentation, AMS, FTT, hypernatremia, intubated/ICU stay. 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 However, pt failed to do so. Denies fever, chills, In ED, pt afebrile, vitals stable. Na 166, Cl 119, K 5.1, AVERY BUN 71/Cr 5.4. baseline Cr 3.4-4.1. 12 point ROS unobtainable as pt is nonverbal/lethargic. Prev hosp: recent admission to [facility] [place] [place] for AMS, hypernatremia, FTT PMH: Hypertension, Asthma, ?Parkinson's, dementia PSH: No surgical history Family History: Noncontributory Social History: No smoking, alcohol, or illicit drug use. Patient requires help with ADLs, unable to ambulate on her own. Allergies: NKDA Tried contacting pt's family: reached a voicemail. Present on Admission - Present on Admission Any Indicators Present on Admission: No History of DVT/PE: No History of Uncontrolled Diabetes: No Urinary Catheter: No Decubitus Ulcer Present: No Review of Systems - Review of Systems Systems not reviewed;Unavailable: Acuity of Condition, Altered Mental Status, Other (nonverbal) Past Patient History - Past Social History Smoking Status: Never Smoked - CARDIAC Hx Hypertension: Yes Hx Pacemaker: No - PULMONARY Hx Asthma: Yes - NEUROLOGICAL HX Cerebrovascular Accident: (questionable cva in [place] 2006) Hx Parkinson's Disease: Yes (questionable) Other/Comment: uncontrollable twitching, jittery,short term memory loss, forgetful since 2010 worsening 2013, difficulty walking - HEENT Hx Cataracts: Yes (left eye) - HEMATOLOGICAL/ONCOLOGICAL Hx Cancer: No - INTEGUMENTARY Other/Comment: dry skin ble - MUSCULOSKELETAL/RHEUMATOLOGICAL Hx Falls: Yes (recent frequent) - GASTROINTESTINAL Hx Gastroesophageal Reflux: Yes - PSYCHIATRIC Hx Substance Use: No - SURGICAL HISTORY Hx Mastectomy: No Meds Allergies/Adverse Reactions: Allergies Allergy/AdvReac Type Severity Reaction Status Date / Time No Known Allergies Allergy Verified 11/01/17 14:45 Physical Exam - Constitutional Appears: Toxic, Older Than Stated Age, Chronically Ill - Head Exam Head Exam: ATRAUMATIC, NORMOCEPHALIC - Eye Exam Eye Exam: EOMI (sluggish reaction to light). absent: Conjunctival injection, Nystagmus, Scleral icterus Pupil Exam: absent: Fixed, Irregular, Unequal - ENT Exam ENT Exam: Mucous Membranes Dry - Neck Exam Neck exam: Positive for: Full Rom - Respiratory Exam Respiratory Exam: Accessory Muscle Use (mild sternomastoid accessory muscle use) . absent: Chest Wall Tenderness, Rales, Rhonchi, Wheezes Additional comments: mild bibasilar crackles - Cardiovascular Exam Cardiovascular Exam: RRR, +S1, +S2. absent: Systolic Murmur - GI/Abdominal Exam GI & Abdominal Exam: Normal Bowel Sounds, Soft. absent: Distended, Firm, Guarding, Rebound, Rigid, Tenderness - Extremities Exam Extremities exam: Positive for: normal inspection. Negative for: calf tenderness, pedal edema - Neurological Exam Neurological exam: Altered (lethargic, nonverbal at baseline) - Skin Skin Exam: Dry, Normal Color, Warm Results - Vital Signs Recent Vital Signs: Last Vital Signs Temp 98.3 F 11/01/17 15:08 Pulse 80 11/01/17 15:08 Resp 18 11/01/17 15:08 BP 169/97 H 11/01/17 15:08 Pulse Ox 99 11/01/17 15:08 - Labs Result Diagrams: 11/01/17 15:35 11/01/17 15:35 Assessment & Plan - Assessment and Plan (Free Text) Assessment: 77 year old female with hx of HTN, asthma, Parkinson's, recent [facility] admission for AMS/hypernatremia, presents for AMS, FTT, found to be profoundly hypernatremic, AVERY: Hypernatremia: 2/2 renal losses vs GI loss vs insensible losses - Free water deficit 3.4 L, will avoid rapid correction (6-8 mmol/day or <0.5 meq/h) - D5W @ 70. BMP q 4h. Cont to monitor - nephro consulted. f/u recs - ICU management - Seizure/fall precautions AMS/lethargy: 2/2 hypernatremia vs infectious etiology vs ftt - correct hypernatemia as above - CXR neg. UA, urine culture, blood culture, procal - ABG with shock panel - no leukocytosis, afebrile - cont to monitor Hyperkalemia: -mild. no EKG changes. Will cont to monitor. Failure to thrive: - Dehydrated, no oral intake over several days - Formal speech and swallow eval - NPO - Aspiration precautions AVERY: Likely secondary to dehydration vs ATN - Pt has hx of CKD - Nephro consulted. f/u recs - UA, Osm, Antione, Ucr. will calculate fena - daily cmp/ cont to monitor. Prophylaxis Protonix heparin Sq Discussed with Dr Langley. Ember Magaña, PGY1 - Date & Time Date: 11/01/17 Time: 18:19
[2017-11-01 18:23] LABS: ARTERIAL BLOOD GAS O2 SAT 97.2 % (95-98); ARTERIAL BLOOD GAS PCO2 93 mm/Hg (35-45); ARTERIAL BLOOD GAS PH 7.27 (7.35-7.45); ARTERIAL BLOOD GAS TCO2 45.6 mmol.L (22-28)
[2017-11-01 18:31] LABS: ARTERIAL BLOOD GAS HCO3 42.7 mmol/L (21-28)
[2017-11-01] MEDS ORDERED: Albuterol-Ipratrop 3 mg / 0.5 (3 ml) UD IH PRN (19:02)
[2017-11-01 19:13] LABS: URINE BILIRUBIN NEGATIVE (NEGATIVE); URINE BLOOD TRACE-INTACT (NEGATIVE); URINE GLUCOSE (UA) NEGATIVE (NEGATIVE); URINE LEUKOCYTE ESTERASE NEGATIVE Leu/uL (NEGATIVE); URINE NITRATE NEGATIVE (NEGATIVE); URINE PROTEIN 30 mg/dL (<30 mg/dL); URINE UROBILINOGEN 0.2 E.U./dL (<1 E.U./dL)
[2017-11-01] MEDS: Albuterol-Ipratrop 3 mg / 0.5 (3 ml) UD IH SCH ×2 (19:23→23:45)
[2017-11-01 19:24] LABS: URINE APPEARANCE CLEAR (CLEAR); URINE COLOR LIGHT YELLOW (YELLOW)
[2017-11-01 19:38] LABS: CALCIUM 9.7 mg/dL (8.4-10.5)
[2017-11-01 20:01] LABS: URINE EPITHELIAL CELLS 0 - 2 /hpf (0-5); URINE RBC 0 - 2 /hpf (0-2); URINE WBC 0 - 2 /hpf (0-6)
[2017-11-01 20:02] LABS: URINE BACTERIA MOD (NEG)
[2017-11-01 22:43] LABS: FREE T4 0.87 ng/dL (0.78-2.19)
[2017-11-01 22:46] LABS: CALCIUM 9.4 mg/dL (8.4-10.5)
[2017-11-01] MEDS ORDERED: Albuterol 0.5% Inhal Sol (2.5 mg/0.5 ml) UD IH ONE (23:00)
[2017-11-01] MEDS ORDERED: Dextrose 50% SYRINGE Inj (50 ml) IVP ONE (23:00)
[2017-11-01] MEDS ORDERED: Insulin Regular 1 UNITS/0.01 ML ML IVP ONE (23:00)
[2017-11-02 03:00] LABS: CALCIUM 9.5 mg/dL (8.4-10.5)
[2017-11-02] MEDS: Albuterol-Ipratrop 3 mg / 0.5 (3 ml) UD IH SCH ×4 (03:02→19:46)
[2017-11-02 06:30] LABS: ARTERIAL BLOOD GAS HCO3 37.9 mmol/L (21-28); ARTERIAL BLOOD GAS HEMOGLOBIN 9.5 g/dL (11.7-17.4); ARTERIAL BLOOD GAS O2 CONTENT 12.9 ML/dl (15-23); ARTERIAL BLOOD GAS O2 SAT 99.2 % (95-98); ARTERIAL BLOOD GAS PCO2 67 mm/Hg (35-45); ARTERIAL BLOOD GAS PH 7.36 (7.35-7.45)
[2017-11-02 07:18] LABS: BASO # 0.02 K/mm3 (0.0-2.0); BASO % 0.4 % (0.0-3.0); EOS # 0.1 (0.0-0.7); EOS % 2.1 % (1.5-5.0); GRAN # 2.95 (1.4-6.5); GRAN % 62.1 % (50.0-68.0); HEMOGLOBIN 9.8 g/dL (12.0-16.0); LYMPH # 1.1 (1.2-3.4); LYMPH % 23.4 % (22.0-35.0); MEAN CELL VOLUME 109.5 fl (80.0-105.0); MEAN CORPUSCULAR HGB CONC 26.5 g/dl (31.0-37.0); MEAN PLATELET VOLUME 11.3 fl (7.0-11.0); MONO # 0.6 (0.1-0.6); RBC 3.38 10^6/uL (3.5-6.1); RED CELL DISTRIBUTION WIDTH 17.8 % (11.5-14.5); WHITE BLOOD COUNT 4.8 10^3/ul (4.5-11.0)
--- NOTE | 2017-11-02 07:38 | CP.PCM.PN ---
Subjective - Date & Time of Evaluation Date of Evaluation: 11/02/17 Time of Evaluation: 07:20 Objective - Vital Signs/Intake and Output Vital Signs (last 24 hours): Temp Pulse Resp BP Pulse Ox 98.4 F 68 18 120/78 100 11/02/17 04:00 11/02/17 04:00 11/02/17 04:00 11/02/17 01:13 11/02/17 04:00 - Medications Medications: Current Medications Albuterol/Ipratropium (Duoneb 3 Mg/0.5 Mg (3 Ml) Ud) 3 ml IH [id number] [facility] Last Admin: 11/02/17 03:02 Dose: 3 ml Albuterol/Ipratropium (Duoneb 3 Mg/0.5 Mg (3 Ml) Ud) 3 ml IH Q2H PRN PRN Reason: Shortness of Breath Heparin Sodium (Porcine) (Heparin) 5,000 units SC Q12 DAVID PRN Reason: Protocol Last Admin: 11/01/17 21:29 Dose: 5,000 units Hydralazine HCl (Apresoline) 10 mg IVP Q6 PRN PRN Reason: Systolic Blood Pressure Dextrose (Dextrose 5% In Water 1000 Ml) 1,000 mls @ 50 mls/hr IV .Q20H [facility] Last Admin: 11/01/17 20:37 Dose: 50 mls/hr Pantoprazole Sodium (Protonix Inj) 40 mg IVP DAILY [facility] Last Admin: 11/01/17 18:04 Dose: 40 mg - Labs Labs: 11/02/17 01:50 APTT 26.8 Seconds (25.1-36.5) 11/01/17 06:45
--- NOTE | 2017-11-02 07:40 | CP.CCUPN ---
<Lina Torres - Last Filed: 11/02/17 11:12> CCU Subjective - Physician Review Events Since Last Encounter (Free Text): 11/02/17 7:09 Patient was stable overnight, Afib converted to sinus on Cardizem drip, hemodynamically stable. Saturating well on bipap. 11/02/17 19:36 Attempt was made to wean patient off of bipap, and Cardizem drip. Patient became tachycardeic, reverted back to RVR afib. Subjective (Free Text): 11/02/17 07:35 Patient with no complains. Denies pain. Denies sob, or cp. Critical Care Time Spent (in minutes): 50 CCU Objective - Vital Signs / Intake & Output Vital Signs (Last 4 hours): Vital Signs Temp Pulse Resp Pulse Ox 11/02/17 04:00 98.4 F 68 18 100 Intake and Output (Last 8hrs): Intake & Output 11/01/17 11/02/17 11/02/17 22:59 06:59 14:59 Weight 80 lb - Physical Exam Head: Positive for: Atraumatic, Normocephalic Pupils: Positive for: PERRL Extroacular Muscles: Positive for: EOMI Conjunctiva: Positive for: Normal Mouth: Positive for: Moist Mucous Membranes Neck: Positive for: Other (on bipapa) Respiratory/Chest: Positive for: Decreased Breath Sounds (left side; clear to right side). Negative for: Respiratory Distress, Accessory Muscle Use, Wheezes , Rales, Retracting, Rhonchi Cardiovascular: Positive for: Regular Rate and Rhythm, Normal S1, S2. Negative for: Murmurs Abdomen: Positive for: Normal Bowel Sounds. Negative for: Tenderness, Distention, Peritoneal Signs, Mass/Organomegaly Neurological: Negative for: Speech Normal (nonverbal), Other (no focal deficits) Skin: Positive for: Warm, Dry Psychiatric: Positive for: Alert, Other (awake, and follows command.) - Medications Active Medications: Active Medications Generic Name Dose Route Start Last Admin Trade Name Freq PRN Reason Stop Dose Admin Albuterol/Ipratropium 3 ml 11/01/17 19:30 11/02/17 03:02 Duoneb 3 Mg/0.5 Mg (3 Ml) Ud IH 3 ml [id number] DAVID Administration Albuterol/Ipratropium 3 ml 02/11/18 19:02 Duoneb 3 Mg/0.5 Mg (3 Ml) Ud IH Q2H PRN Shortness of Breath Heparin Sodium (Porcine) 5,000 units 11/01/17 22:00 11/01/17 21:29 Heparin SC 5,000 units Q12 DAVID Administration Protocol Hydralazine HCl 10 mg 11/01/17 17:33 Apresoline IVP Q6 PRN Systolic Blood Pressure Dextrose 1,000 mls @ 50 mls/hr 11/01/17 20:07 11/01/17 20:37 Dextrose 5% In Water 1000 Ml IV 50 mls/hr .Q20H DAVID Administration Pantoprazole Sodium 40 mg 11/01/17 17:45 11/01/17 18:04 Protonix Inj IVP 40 mg DAILY DAVID Administration - Patient Studies Lab Studies: Lab Studies 11/02/17 11/02/17 11/01/17 Range/Units 06:18 01:50 22:00 pCO2 67 H (35-45) mm/Hg pO2 112.0 H (80-100) mm/Hg HCO3 37.9 H (21-28) mmol/L ABG pH 7.36 (7.35-7.45) ABG Total CO2 40.0 H (22-28) mmol.L ABG O2 Saturation 99.2 H (95-98) % ABG O2 Content 12.9 L (15-23) ML/dl ABG Base Excess 10.6 H (-2.0-3.0) mmol/L ABG Hemoglobin 9.5 L (11.7-17.4) g/dL ABG Carboxyhemoglobin 2.4 H (0.5-1.5) % POC ABG HHb (Measured) 0.8 (0-5) % ABG Methemoglobin 1.7 (0.0-3.0) % ABG O2 Capacity 13.0 L (16-24) mL/dl ABG Potassium (3.6-5.2) mmol/L Hgb O2 Saturation 95.2 (95.0-98.0) % Sodium 164 H* (132-148) mmol/L Chloride 119 H (98-107) mmol/L Glucose (65-105) mg/dl Lactate (0.7-2.1) mmol/L FiO2 50.0 % Potassium 5.0 (3.6-5.0) mmol/L Carbon Dioxide 29 (21-33) mmol/L Anion Gap 22 H (10-20) BUN 72 H (7-21) mg/dL Creatinine 5.3 H (0.7-1.2) mg/dl Est GFR ( Amer) 10 Est GFR (Non-Af Amer) 8 POC Glucose (mg/dL) (65-110) mg/dL Random Glucose 153 H (70-110) mg/dL Calcium 9.5 (8.4-10.5) mg/dL Free T4 0.87 (0.78-2.19) ng/dL TSH 3rd Generation 1.25 (0.46-4.68) mIU/mL Arterial Blood Potassium (3.6-5.2) mmol/L Urine Color (YELLOW) Urine Appearance (CLEAR) Urine pH (4.7-8.0) Ur Specific Hammond (1.005-1.035) Urine Protein (<30 mg/dL) mg/dL Urine Glucose (UA) (NEGATIVE) mg/dL Urine Ketones (NEGATIVE) mg/dL Urine Blood (NEGATIVE) Urine Nitrate (NEGATIVE) Urine Bilirubin (NEGATIVE) Urine Urobilinogen (<1 E.U./dL) E.U./dL Ur Leukocyte Esterase (NEGATIVE) William/uL Urine RBC (0-2) /hpf Urine WBC (0-6) /hpf Ur Epithelial Cells (0-5) /hpf Urine Bacteria (NEG) 11/01/17 11/01/17 11/01/17 Range/Units 22:00 21:52 18:05 pCO2 93 H* (35-45) mm/Hg pO2 77.0 L (80-100) mm/Hg HCO3 42.7 H* (21-28) mmol/L ABG pH 7.27 L (7.35-7.45) ABG Total CO2 45.6 H (22-28) mmol.L ABG O2 Saturation 97.2 (95-98) % ABG O2 Content (15-23) ML/dl ABG Base Excess 11.6 H (-2.0-3.0) mmol/L ABG Hemoglobin (11.7-17.4) g/dL ABG Carboxyhemoglobin (0.5-1.5) % POC ABG HHb (Measured) (0-5) % ABG Methemoglobin (0.0-3.0) % ABG O2 Capacity (16-24) mL/dl ABG Potassium 5.4 H (3.6-5.2) mmol/L Hgb O2 Saturation (95.0-98.0) % Sodium 164 H* 164.0 H* (132-148) mmol/L Chloride 118 H 128.0 H (98-107) mmol/L Glucose 127 H (65-105) mg/dl Lactate 0.6 L (0.7-2.1) mmol/L FiO2 28.0 % Potassium 5.7 H* (3.6-5.0) mmol/L Carbon Dioxide 32 (21-33) mmol/L Anion Gap 20 (10-20) BUN 47 H (7-21) mg/dL Creatinine 5.3 H (0.7-1.2) mg/dl Est GFR ( Amer) 10 Est GFR (Non-Af Amer) 8 POC Glucose (mg/dL) 142 H (65-110) mg/dL Random Glucose 142 H (70-110) mg/dL Calcium 9.4 (8.4-10.5) mg/dL Free T4 (0.78-2.19) ng/dL TSH 3rd Generation (0.46-4.68) mIU/mL Arterial Blood Potassium 5.4 H (3.6-5.2) mmol/L Urine Color (YELLOW) Urine Appearance (CLEAR) Urine pH (4.7-8.0) Ur Specific Hammond (1.005-1.035) Urine Protein (<30 mg/dL) mg/dL Urine Glucose (UA) (NEGATIVE) mg/dL Urine Ketones (NEGATIVE) mg/dL Urine Blood (NEGATIVE) Urine Nitrate (NEGATIVE) Urine Bilirubin (NEGATIVE) Urine Urobilinogen (<1 E.U./dL) E.U./dL Ur Leukocyte Esterase (NEGATIVE) William/uL Urine RBC (0-2) /hpf Urine WBC (0-6) /hpf Ur Epithelial Cells (0-5) /hpf Urine Bacteria (NEG) 11/01/17 Range/Units 17:30 pCO2 (35-45) mm/Hg pO2 (80-100) mm/Hg HCO3 (21-28) mmol/L ABG pH (7.35-7.45) ABG Total CO2 (22-28) mmol.L ABG O2 Saturation (95-98) % ABG O2 Content (15-23) ML/dl ABG Base Excess (-2.0-3.0) mmol/L ABG Hemoglobin (11.7-17.4) g/dL ABG Carboxyhemoglobin (0.5-1.5) % POC ABG HHb (Measured) (0-5) % ABG Methemoglobin (0.0-3.0) % ABG O2 Capacity (16-24) mL/dl ABG Potassium (3.6-5.2) mmol/L Hgb O2 Saturation (95.0-98.0) % Sodium (132-148) mmol/L Chloride (98-107) mmol/L Glucose (65-105) mg/dl Lactate (0.7-2.1) mmol/L FiO2 % Potassium (3.6-5.0) mmol/L Carbon Dioxide (21-33) mmol/L Anion Gap (10-20) BUN (7-21) mg/dL Creatinine (0.7-1.2) mg/dl Est GFR ( Amer) Est GFR (Non-Af Amer) POC Glucose (mg/dL) (65-110) mg/dL Random Glucose (70-110) mg/dL Calcium (8.4-10.5) mg/dL Free T4 (0.78-2.19) ng/dL TSH 3rd Generation (0.46-4.68) mIU/mL Arterial Blood Potassium (3.6-5.2) mmol/L Urine Color Light yellow (YELLOW) Urine Appearance Clear (CLEAR) Urine pH 7.0 (4.7-8.0) Ur Specific Hammond 1.015 (1.005-1.035) Urine Protein 30 H (<30 mg/dL) mg/dL Urine Glucose (UA) Negative (NEGATIVE) mg/dL Urine Ketones Negative (NEGATIVE) mg/dL Urine Blood Trace-intact H (NEGATIVE) Urine Nitrate Negative (NEGATIVE) Urine Bilirubin Negative (NEGATIVE) Urine Urobilinogen 0.2 (<1 E.U./dL) E.U./dL Ur Leukocyte Esterase Negative (NEGATIVE) William/uL Urine RBC 0 - 2 (0-2) /hpf Urine WBC 0 - 2 (0-6) /hpf Ur Epithelial Cells 0 - 2 (0-5) /hpf Urine Bacteria Mod (NEG) Laboratory Results - last 24 hr 11/01/17 11/01/17 11/01/17 17:30 18:05 21:52 pCO2 93 H* pO2 77.0 L HCO3 42.7 H* ABG pH 7.27 L ABG Total CO2 45.6 H ABG O2 Saturation 97.2 ABG O2 Content ABG Base Excess 11.6 H ABG Hemoglobin ABG Carboxyhemoglobin POC ABG HHb (Measured) ABG Methemoglobin ABG O2 Capacity ABG Potassium 5.4 H Hgb O2 Saturation Sodium 164.0 H* Chloride 128.0 H Glucose 127 H Lactate 0.6 L FiO2 28.0 Potassium Carbon Dioxide Anion Gap BUN Creatinine Est GFR ( Amer) Est GFR (Non-Af Amer) POC Glucose (mg/dL) 142 H Random Glucose Calcium Free T4 TSH 3rd Generation Arterial Blood Potassium 5.4 H Urine Color Light yellow Urine Appearance Clear Urine pH 7.0 Ur Specific Hammond 1.015 Urine Protein 30 H Urine Glucose (UA) Negative Urine Ketones Negative Urine Blood Trace-intact H Urine Nitrate Negative Urine Bilirubin Negative Urine Urobilinogen 0.2 Ur Leukocyte Esterase Negative Urine RBC 0 - 2 Urine WBC 0 - 2 Ur Epithelial Cells 0 - 2 Urine Bacteria Mod 11/01/17 11/01/17 11/02/17 22:00 22:00 01:50 pCO2 pO2 HCO3 ABG pH ABG Total CO2 ABG O2 Saturation ABG O2 Content ABG Base Excess ABG Hemoglobin ABG Carboxyhemoglobin POC ABG HHb (Measured) ABG Methemoglobin ABG O2 Capacity ABG Potassium Hgb O2 Saturation Sodium 164 H* 164 H* Chloride 118 H 119 H Glucose Lactate FiO2 Potassium 5.7 H* 5.0 Carbon Dioxide 32 29 Anion Gap 20 22 H BUN 47 H 72 H Creatinine 5.3 H 5.3 H Est GFR ( Amer) 10 10 Est GFR (Non-Af Amer) 8 8 POC Glucose (mg/dL) Random Glucose 142 H 153 H Calcium 9.4 9.5 Free T4 0.87 TSH 3rd Generation 1.25 Arterial Blood Potassium Urine Color Urine Appearance Urine pH Ur Specific Hammond Urine Protein Urine Glucose (UA) Urine Ketones Urine Blood Urine Nitrate Urine Bilirubin Urine Urobilinogen Ur Leukocyte Esterase Urine RBC Urine WBC Ur Epithelial Cells Urine Bacteria 11/02/17 06:18 pCO2 67 H pO2 112.0 H HCO3 37.9 H ABG pH 7.36 ABG Total CO2 40.0 H ABG O2 Saturation 99.2 H ABG O2 Content 12.9 L ABG Base Excess 10.6 H ABG Hemoglobin 9.5 L ABG Carboxyhemoglobin 2.4 H POC ABG HHb (Measured) 0.8 ABG Methemoglobin 1.7 ABG O2 Capacity 13.0 L ABG Potassium Hgb O2 Saturation 95.2 Sodium Chloride Glucose Lactate FiO2 50.0 Potassium Carbon Dioxide Anion Gap BUN Creatinine Est GFR ( Amer) Est GFR (Non-Af Amer) POC Glucose (mg/dL) Random Glucose Calcium Free T4 TSH 3rd Generation Arterial Blood Potassium Urine Color Urine Appearance Urine pH Ur Specific Hammond Urine Protein Urine Glucose (UA) Urine Ketones Urine Blood Urine Nitrate Urine Bilirubin Urine Urobilinogen Ur Leukocyte Esterase Urine RBC Urine WBC Ur Epithelial Cells Urine Bacteria Fingerstick Blood Sugar Results: 142 Review of Systems - Review of Systems Systems not reviewed;Unavailable: Other (on BIPAP.) Critical Care Progress Note - Ventilator Checklist Head of Bed 30 Degrees: Yes - Extremities/Vascular Does the Patient have a Central Venous Catheter?: No Does the Patient have a Basurto Catheter?: Yes Does the Patient need a Basurto Catheter?: Yes Catheter Insertion Criteria: Need for accurate measurement of output in critically ill patient - Prophylaxis GI Prophylaxis GI: PPI - Prophylaxis DVT Prophylaxis DVT: Heparin SQ - Nutrition Nutrition: Nutrition Category Date Time Status NPO Diet [DIET] Diets 11/01/17 Dinner Ordered Assessment/Plan - Assessment and Plan (Free Text) Assessment: Patient is a 77 y/o with pmhx of dementia, copd, htn, ckd questionable cva who was recently discharged from [facility] s/p hypercapneic respiratory failure s/p intubation and extubation and discharged to rehab, was readmitted to due weakness and lethargy. Patient was found to have hypernatremia due to dehydration. Plan: Neurology: AMS likely due dehydration/hypernatremia - Dehydration and hypernatremia is being managed as below - CT head with no acute ischemic changes. Pulm- h/o COPD with chronic CO2 retention - Patient is saturating well with nasal cannula to maintain spO2 above 90Z% - Continue with duonebs prn and standing dose - head of bed above 35 degrees Cardio: Patient is hemodynamically stable Will monitor and maintain MAP above 65% hydralazine prn for sbp above 160 Renal: Hyperkalemia- - will give a stat dose of kayexalate - and monitor for bowel movement Acute Hypernatremia- looks more like dehydration/hypovolemia induced, - urine lytes ordered. - Initial fluid deficit of 2.2 L - Will change D4W to 125 ml/per hour - Repeat BMP at 12 am AVERY on CKD- likely pre-renal- fluid repletion as above. - Nephrology following Endo: Will maintain euglycemia Heme: Chronic macrocytic anemia - h/h stable, will continue to monitor ID: Low probability for sepsis. Will continue to monitor. GI: currently NPO due to mental status. On ppi for Gi prophylaxis. DVT prophylaxis: heparin sc. Patient seen, examined and case discussed with Dr Staples. - Date & Time Date: 11/02/17 Time: 10:20 <Fantasma Staples - Last Filed: 11/02/17 12:04> CCU Objective - Vital Signs / Intake & Output Vital Signs (Last 4 hours): Vital Signs Pulse Resp BP Pulse Ox 11/02/17 11:10 75 19 97 11/02/17 11:00 77 23 101/65 93 L 11/02/17 10:50 75 34 H 97 11/02/17 10:40 76 12 89 L 11/02/17 10:39 76 22 11/02/17 10:30 79 24 95 11/02/17 10:20 76 15 99 11/02/17 10:13 76 51 H 11/02/17 10:10 76 40 H 88 L 11/02/17 10:07 77 20 11/02/17 10:05 76 24 11/02/17 10:00 71 19 98 11/02/17 09:59 73 20 114/84 100 11/02/17 09:54 84 19 11/02/17 09:53 76 18 11/02/17 09:52 70 24 11/02/17 09:51 71 53 H 11/02/17 09:50 74 16 11/02/17 09:49 75 27 H 11/02/17 09:48 71 17 11/02/17 09:47 72 18 11/02/17 09:46 73 17 11/02/17 09:45 72 18 11/02/17 09:40 72 19 94 L 11/02/17 09:30 72 22 99 11/02/17 09:20 72 18 99 11/02/17 09:17 72 17 96/70 L 98 11/02/17 09:10 73 23 99 11/02/17 09:00 72 22 70/46 L 100 11/02/17 08:50 73 17 100 11/02/17 08:40 74 17 100 11/02/17 08:30 73 20 95 11/02/17 08:20 73 25 H 97 11/02/17 08:10 71 20 99 Intake and Output (Last 8hrs): Intake & Output 11/01/17 11/02/17 11/02/17 22:59 06:59 14:59 Intake Total 600 Output Total 140 Balance 460 Weight 80 lb 88 lb 1.6 oz Intake: IV 600 d5 600 Output: Urine 140 Urethral (Basurto) 140 - Medications Active Medications: Active Medications Generic Name Dose Route Start Last Admin Trade Name Freq PRN Reason Stop Dose Admin Albuterol/Ipratropium 3 ml 11/01/17 19:30 11/02/17 11:25 Duoneb 3 Mg/0.5 Mg (3 Ml) Ud IH 3 ml [id number] DAVID Administration Albuterol/Ipratropium 3 ml 11/01/17 19:02 Duoneb 3 Mg/0.5 Mg (3 Ml) Ud IH Q2H PRN Shortness of Breath Heparin Sodium (Porcine) 5,000 units 11/01/17 22:00 11/02/17 09:46 Heparin SC 5,000 units Q12 DAVID Administration Protocol Hydralazine HCl 10 mg 11/01/17 17:33 Apresoline IVP Q6 PRN Systolic Blood Pressure Dextrose 1,000 mls @ 125 mls/hr 11/02/17 09:19 11/02/17 09:41 Dextrose 5% In Water 1000 Ml IV 125 mls/hr .Q8H DAVID Administration Pantoprazole Sodium 40 mg 11/01/17 17:45 11/02/17 09:45 Protonix Inj IVP 40 mg DAILY DAVID Administration - Patient Studies Lab Studies: Lab Studies 11/02/17 11/02/17 11/02/17 Range/Units 11:06 09:40 09:40 WBC (4.5-11.0) 10^3/ul RBC (3.5-6.1) 10^6/uL Hgb (12.0-16.0) g/dL Hct (36.0-48.0) % MCV (80.0-105.0) fl MCH (25.0-35.0) pg MCHC (31.0-37.0) g/dl RDW (11.5-14.5) % Plt Count (120.0-450.0) 10^3/uL MPV (7.0-11.0) fl Gran % (50.0-68.0) % Lymph % (Auto) (22.0-35.0) % Jefferson % (Auto) (1.0-6.0) % Eos % (Auto) (1.5-5.0) % Baso % (Auto) (0.0-3.0) % Gran # (1.4-6.5) Lymph # (Auto) (1.2-3.4) Jefferson # (Auto) (0.1-0.6) Eos # (Auto) (0.0-0.7) Baso # (Auto) (0.0-2.0) K/mm3 PT 10.9 (9.4-12.5) SECONDS INR 0.95 (0.93-1.08) APTT 36.0 (25.1-36.5) Seconds pCO2 (35-45) mm/Hg pO2 (80-100) mm/Hg HCO3 (21-28) mmol/L ABG pH (7.35-7.45) ABG Total CO2 (22-28) mmol.L ABG O2 Saturation (95-98) % ABG O2 Content (15-23) ML/dl ABG Base Excess (-2.0-3.0) mmol/L ABG Hemoglobin (11.7-17.4) g/dL ABG Carboxyhemoglobin (0.5-1.5) % POC ABG HHb (Measured) (0-5) % ABG Methemoglobin (0.0-3.0) % ABG O2 Capacity (16-24) mL/dl ABG Potassium (3.6-5.2) mmol/L Hgb O2 Saturation (95.0-98.0) % Sodium 161 H* (132-148) mmol/L Chloride 115 H (98-107) mmol/L Glucose (65-105) mg/dl Lactate (0.7-2.1) mmol/L FiO2 % Potassium 5.2 H (3.6-5.0) mmol/L Carbon Dioxide 37 H (21-33) mmol/L Anion Gap 15 (10-20) BUN 75 H (7-21) mg/dL Creatinine 5.4 H (0.7-1.2) mg/dl Est GFR ( Amer) 9 Est GFR (Non-Af Amer) 8 POC Glucose (mg/dL) 120 H (65-110) mg/dL Random Glucose 132 H (70-110) mg/dL Calcium 8.7 (8.4-10.5) mg/dL Total Bilirubin (0.2-1.3) mg/dL AST (14-36) U/L ALT (7-56) U/L Alkaline Phosphatase (38-126) U/L Total Protein (5.8-8.3) g/dL Albumin (3.0-4.8) g/dL Globulin gm/dL Albumin/Globulin Ratio (1.1-1.8) Triglycerides (35-160) mg/dL Cholesterol (130-200) mg/dL LDL Cholesterol Direct (0-129) mg/dL HDL Cholesterol (29-60) mg/dL Free T4 (0.78-2.19) ng/dL TSH 3rd Generation (0.46-4.68) mIU/mL Arterial Blood Potassium (3.6-5.2) mmol/L Urine Color (YELLOW) Urine Appearance (CLEAR) Urine pH (4.7-8.0) Ur Specific Hammond (1.005-1.035) Urine Protein (<30 mg/dL) mg/dL Urine Glucose (UA) (NEGATIVE) mg/dL Urine Ketones (NEGATIVE) mg/dL Urine Blood (NEGATIVE) Urine Nitrate (NEGATIVE) Urine Bilirubin (NEGATIVE) Urine Urobilinogen (<1 E.U./dL) E.U./dL Ur Leukocyte Esterase (NEGATIVE) William/uL Urine RBC (0-2) /hpf Urine WBC (0-6) /hpf Ur Epithelial Cells (0-5) /hpf Urine Bacteria (NEG) 11/02/17 11/02/17 11/02/17 Range/Units 07:19 06:18 05:30 WBC (4.5-11.0) 10^3/ul RBC (3.5-6.1) 10^6/uL Hgb (12.0-16.0) g/dL Hct (36.0-48.0) % MCV (80.0-105.0) fl MCH (25.0-35.0) pg MCHC (31.0-37.0) g/dl RDW (11.5-14.5) % Plt Count (120.0-450.0) 10^3/uL MPV (7.0-11.0) fl Gran % (50.0-68.0) % Lymph % (Auto) (22.0-35.0) % Jefferson % (Auto) (1.0-6.0) % Eos % (Auto) (1.5-5.0) % Baso % (Auto) (0.0-3.0) % Gran # (1.4-6.5) Lymph # (Auto) (1.2-3.4) Jefferson # (Auto) (0.1-0.6) Eos # (Auto) (0.0-0.7) Baso # (Auto) (0.0-2.0) K/mm3 PT (9.4-12.5) SECONDS INR (0.93-1.08) APTT (25.1-36.5) Seconds pCO2 67 H (35-45) mm/Hg pO2 112.0 H (80-100) mm/Hg HCO3 37.9 H (21-28) mmol/L ABG pH 7.36 (7.35-7.45) ABG Total CO2 40.0 H (22-28) mmol.L ABG O2 Saturation 99.2 H (95-98) % ABG O2 Content 12.9 L (15-23) ML/dl ABG Base Excess 10.6 H (-2.0-3.0) mmol/L ABG Hemoglobin 9.5 L (11.7-17.4) g/dL ABG Carboxyhemoglobin 2.4 H (0.5-1.5) % POC ABG HHb (Measured) 0.8 (0-5) % ABG Methemoglobin 1.7 (0.0-3.0) % ABG O2 Capacity 13.0 L (16-24) mL/dl ABG Potassium (3.6-5.2) mmol/L Hgb O2 Saturation 95.2 (95.0-98.0) % Sodium 162 H* (132-148) mmol/L Chloride 118 H (98-107) mmol/L Glucose (65-105) mg/dl Lactate (0.7-2.1) mmol/L FiO2 50.0 % Potassium 5.4 H (3.6-5.0) mmol/L Carbon Dioxide 32 (21-33) mmol/L Anion Gap 19 (10-20) BUN 73 H (7-21) mg/dL Creatinine 5.4 H (0.7-1.2) mg/dl Est GFR ( Amer) 9 Est GFR (Non-Af Amer) 8 POC Glucose (mg/dL) 125 H (65-110) mg/dL Random Glucose 124 H (70-110) mg/dL Calcium 8.9 (8.4-10.5) mg/dL Total Bilirubin 0.5 (0.2-1.3) mg/dL AST 23 (14-36) U/L ALT 22 (7-56) U/L Alkaline Phosphatase 84 (38-126) U/L Total Protein 5.8 (5.8-8.3) g/dL Albumin 3.1 (3.0-4.8) g/dL Globulin 2.7 gm/dL Albumin/Globulin Ratio 1.1 (1.1-1.8) Triglycerides 122 (35-160) mg/dL Cholesterol 183 (130-200) mg/dL LDL Cholesterol Direct 73 (0-129) mg/dL HDL Cholesterol 68 H (29-60) mg/dL Free T4 (0.78-2.19) ng/dL TSH 3rd Generation (0.46-4.68) mIU/mL Arterial Blood Potassium (3.6-5.2) mmol/L Urine Color (YELLOW) Urine Appearance (CLEAR) Urine pH (4.7-8.0) Ur Specific Hammond (1.005-1.035) Urine Protein (<30 mg/dL) mg/dL Urine Glucose (UA) (NEGATIVE) mg/dL Urine Ketones (NEGATIVE) mg/dL Urine Blood (NEGATIVE) Urine Nitrate (NEGATIVE) Urine Bilirubin (NEGATIVE) Urine Urobilinogen (<1 E.U./dL) E.U./dL Ur Leukocyte Esterase (NEGATIVE) William/uL Urine RBC (0-2) /hpf Urine WBC (0-6) /hpf Ur Epithelial Cells (0-5) /hpf Urine Bacteria (NEG) 11/02/17 11/02/17 11/01/17 Range/Units 05:30 01:50 22:00 WBC 4.8 (4.5-11.0) 10^3/ul RBC 3.38 L (3.5-6.1) 10^6/uL Hgb 9.8 L (12.0-16.0) g/dL Hct 37.0 (36.0-48.0) % MCV 109.5 H (80.0-105.0) fl MCH 29.0 (25.0-35.0) pg MCHC 26.5 L (31.0-37.0) g/dl RDW 17.8 H (11.5-14.5) % Plt Count 107 L (120.0-450.0) 10^3/uL MPV 11.3 H (7.0-11.0) fl Gran % 62.1 (50.0-68.0) % Lymph % (Auto) 23.4 (22.0-35.0) % Jefferson % (Auto) 12.0 H (1.0-6.0) % Eos % (Auto) 2.1 (1.5-5.0) % Baso % (Auto) 0.4 (0.0-3.0) % Gran # 2.95 (1.4-6.5) Lymph # (Auto) 1.1 L (1.2-3.4) Jefferson # (Auto) 0.6 (0.1-0.6) Eos # (Auto) 0.1 (0.0-0.7) Baso # (Auto) 0.02 (0.0-2.0) K/mm3 PT (9.4-12.5) SECONDS INR (0.93-1.08) APTT (25.1-36.5) Seconds pCO2 (35-45) mm/Hg pO2 (80-100) mm/Hg HCO3 (21-28) mmol/L ABG pH (7.35-7.45) ABG Total CO2 (22-28) mmol.L ABG O2 Saturation (95-98) % ABG O2 Content (15-23) ML/dl ABG Base Excess (-2.0-3.0) mmol/L ABG Hemoglobin (11.7-17.4) g/dL ABG Carboxyhemoglobin (0.5-1.5) % POC ABG HHb (Measured) (0-5) % ABG Methemoglobin (0.0-3.0) % ABG O2 Capacity (16-24) mL/dl ABG Potassium (3.6-5.2) mmol/L Hgb O2 Saturation (95.0-98.0) % Sodium 164 H* (132-148) mmol/L Chloride 119 H (98-107) mmol/L Glucose (65-105) mg/dl Lactate (0.7-2.1) mmol/L FiO2 % Potassium 5.0 (3.6-5.0) mmol/L Carbon Dioxide 29 (21-33) mmol/L Anion Gap 22 H (10-20) BUN 72 H (7-21) mg/dL Creatinine 5.3 H (0.7-1.2) mg/dl Est GFR ( Amer) 10 Est GFR (Non-Af Amer) 8 POC Glucose (mg/dL) (65-110) mg/dL Random Glucose 153 H (70-110) mg/dL Calcium 9.5 (8.4-10.5) mg/dL Total Bilirubin (0.2-1.3) mg/dL AST (14-36) U/L ALT (7-56) U/L Alkaline Phosphatase (38-126) U/L Total Protein (5.8-8.3) g/dL Albumin (3.0-4.8) g/dL Globulin gm/dL Albumin/Globulin Ratio (1.1-1.8) Triglycerides (35-160) mg/dL Cholesterol (130-200) mg/dL LDL Cholesterol Direct (0-129) mg/dL HDL Cholesterol (29-60) mg/dL Free T4 0.87 (0.78-2.19) ng/dL TSH 3rd Generation 1.25 (0.46-4.68) mIU/mL Arterial Blood Potassium (3.6-5.2) mmol/L Urine Color (YELLOW) Urine Appearance (CLEAR) Urine pH (4.7-8.0) Ur Specific Hammond (1.005-1.035) Urine Protein (<30 mg/dL) mg/dL Urine Glucose (UA) (NEGATIVE) mg/dL Urine Ketones (NEGATIVE) mg/dL Urine Blood (NEGATIVE) Urine Nitrate (NEGATIVE) Urine Bilirubin (NEGATIVE) Urine Urobilinogen (<1 E.U./dL) E.U./dL Ur Leukocyte Esterase (NEGATIVE) William/uL Urine RBC (0-2) /hpf Urine WBC (0-6) /hpf Ur Epithelial Cells (0-5) /hpf Urine Bacteria (NEG) 11/01/17 11/01/17 11/01/17 Range/Units 22:00 21:52 18:05 WBC (4.5-11.0) 10^3/ul RBC (3.5-6.1) 10^6/uL Hgb (12.0-16.0) g/dL Hct (36.0-48.0) % MCV (80.0-105.0) fl MCH (25.0-35.0) pg MCHC (31.0-37.0) g/dl RDW (11.5-14.5) % Plt Count (120.0-450.0) 10^3/uL MPV (7.0-11.0) fl Gran % (50.0-68.0) % Lymph % (Auto) (22.0-35.0) % Jefferson % (Auto) (1.0-6.0) % Eos % (Auto) (1.5-5.0) % Baso % (Auto) (0.0-3.0) % Gran # (1.4-6.5) Lymph # (Auto) (1.2-3.4) Jefferson # (Auto) (0.1-0.6) Eos # (Auto) (0.0-0.7) Baso # (Auto) (0.0-2.0) K/mm3 PT (9.4-12.5) SECONDS INR (0.93-1.08) APTT (25.1-36.5) Seconds pCO2 93 H* (35-45) mm/Hg pO2 77.0 L (80-100) mm/Hg HCO3 42.7 H* (21-28) mmol/L ABG pH 7.27 L (7.35-7.45) ABG Total CO2 45.6 H (22-28) mmol.L ABG O2 Saturation 97.2 (95-98) % ABG O2 Content (15-23) ML/dl ABG Base Excess 11.6 H (-2.0-3.0) mmol/L ABG Hemoglobin (11.7-17.4) g/dL ABG Carboxyhemoglobin (0.5-1.5) % POC ABG HHb (Measured) (0-5) % ABG Methemoglobin (0.0-3.0) % ABG O2 Capacity (16-24) mL/dl ABG Potassium 5.4 H (3.6-5.2) mmol/L Hgb O2 Saturation (95.0-98.0) % Sodium 164 H* 164.0 H* (132-148) mmol/L Chloride 118 H 128.0 H (98-107) mmol/L Glucose 127 H (65-105) mg/dl Lactate 0.6 L (0.7-2.1) mmol/L FiO2 28.0 % Potassium 5.7 H* (3.6-5.0) mmol/L Carbon Dioxide 32 (21-33) mmol/L Anion Gap 20 (10-20) BUN 47 H (7-21) mg/dL Creatinine 5.3 H (0.7-1.2) mg/dl Est GFR ( Amer) 10 Est GFR (Non-Af Amer) 8 POC Glucose (mg/dL) 142 H (65-110) mg/dL Random Glucose 142 H (70-110) mg/dL Calcium 9.4 (8.4-10.5) mg/dL Total Bilirubin (0.2-1.3) mg/dL AST (14-36) U/L ALT (7-56) U/L Alkaline Phosphatase (38-126) U/L Total Protein (5.8-8.3) g/dL Albumin (3.0-4.8) g/dL Globulin gm/dL Albumin/Globulin Ratio (1.1-1.8) Triglycerides (35-160) mg/dL Cholesterol (130-200) mg/dL LDL Cholesterol Direct (0-129) mg/dL HDL Cholesterol (29-60) mg/dL Free T4 (0.78-2.19) ng/dL TSH 3rd Generation (0.46-4.68) mIU/mL Arterial Blood Potassium 5.4 H (3.6-5.2) mmol/L Urine Color (YELLOW) Urine Appearance (CLEAR) Urine pH (4.7-8.0) Ur Specific Hammond (1.005-1.035) Urine Protein (<30 mg/dL) mg/dL Urine Glucose (UA) (NEGATIVE) mg/dL Urine Ketones (NEGATIVE) mg/dL Urine Blood (NEGATIVE) Urine Nitrate (NEGATIVE) Urine Bilirubin (NEGATIVE) Urine Urobilinogen (<1 E.U./dL) E.U./dL Ur Leukocyte Esterase (NEGATIVE) William/uL Urine RBC (0-2) /hpf Urine WBC (0-6) /hpf Ur Epithelial Cells (0-5) /hpf Urine Bacteria (NEG) 11/01/17 Range/Units 17:30 WBC (4.5-11.0) 10^3/ul RBC (3.5-6.1) 10^6/uL Hgb (12.0-16.0) g/dL Hct (36.0-48.0) % MCV (80.0-105.0) fl MCH (25.0-35.0) pg MCHC (31.0-37.0) g/dl RDW (11.5-14.5) % Plt Count (120.0-450.0) 10^3/uL MPV (7.0-11.0) fl Gran % (50.0-68.0) % Lymph % (Auto) (22.0-35.0) % Jefferson % (Auto) (1.0-6.0) % Eos % (Auto) (1.5-5.0) % Baso % (Auto) (0.0-3.0) % Gran # (1.4-6.5) Lymph # (Auto) (1.2-3.4) Jefferson # (Auto) (0.1-0.6) Eos # (Auto) (0.0-0.7) Baso # (Auto) (0.0-2.0) K/mm3 PT (9.4-12.5) SECONDS INR (0.93-1.08) APTT (25.1-36.5) Seconds pCO2 (35-45) mm/Hg pO2 (80-100) mm/Hg HCO3 (21-28) mmol/L ABG pH (7.35-7.45) ABG Total CO2 (22-28) mmol.L ABG O2 Saturation (95-98) % ABG O2 Content (15-23) ML/dl ABG Base Excess (-2.0-3.0) mmol/L ABG Hemoglobin (11.7-17.4) g/dL ABG Carboxyhemoglobin (0.5-1.5) % POC ABG HHb (Measured) (0-5) % ABG Methemoglobin (0.0-3.0) % ABG O2 Capacity (16-24) mL/dl ABG Potassium (3.6-5.2) mmol/L Hgb O2 Saturation (95.0-98.0) % Sodium (132-148) mmol/L Chloride (98-107) mmol/L Glucose (65-105) mg/dl Lactate (0.7-2.1) mmol/L FiO2 % Potassium (3.6-5.0) mmol/L Carbon Dioxide (21-33) mmol/L Anion Gap (10-20) BUN (7-21) mg/dL Creatinine (0.7-1.2) mg/dl Est GFR ( Amer) Est GFR (Non-Af Amer) POC Glucose (mg/dL) (65-110) mg/dL Random Glucose (70-110) mg/dL Calcium (8.4-10.5) mg/dL Total Bilirubin (0.2-1.3) mg/dL AST (14-36) U/L ALT (7-56) U/L Alkaline Phosphatase (38-126) U/L Total Protein (5.8-8.3) g/dL Albumin (3.0-4.8) g/dL Globulin gm/dL Albumin/Globulin Ratio (1.1-1.8) Triglycerides (35-160) mg/dL Cholesterol (130-200) mg/dL LDL Cholesterol Direct (0-129) mg/dL HDL Cholesterol (29-60) mg/dL Free T4 (0.78-2.19) ng/dL TSH 3rd Generation (0.46-4.68) mIU/mL Arterial Blood Potassium (3.6-5.2) mmol/L Urine Color Light yellow (YELLOW) Urine Appearance Clear (CLEAR) Urine pH 7.0 (4.7-8.0) Ur Specific Hammond 1.015 (1.005-1.035) Urine Protein 30 H (<30 mg/dL) mg/dL Urine Glucose (UA) Negative (NEGATIVE) mg/dL Urine Ketones Negative (NEGATIVE) mg/dL Urine Blood Trace-intact H (NEGATIVE) Urine Nitrate Negative (NEGATIVE) Urine Bilirubin Negative (NEGATIVE) Urine Urobilinogen 0.2 (<1 E.U./dL) E.U./dL Ur Leukocyte Esterase Negative (NEGATIVE) William/uL Urine RBC 0 - 2 (0-2) /hpf Urine WBC 0 - 2 (0-6) /hpf Ur Epithelial Cells 0 - 2 (0-5) /hpf Urine Bacteria Mod (NEG) Laboratory Results - last 24 hr 11/01/17 11/01/17 11/01/17 17:30 18:05 21:52 WBC RBC Hgb Hct MCV MCH MCHC RDW Plt Count MPV Gran % Lymph % (Auto) Jefferson % (Auto) Eos % (Auto) Baso % (Auto) Gran # Lymph # (Auto) Jefferson # (Auto) Eos # (Auto) Baso # (Auto) PT INR APTT pCO2 93 H* pO2 77.0 L HCO3 42.7 H* ABG pH 7.27 L ABG Total CO2 45.6 H ABG O2 Saturation 97.2 ABG O2 Content ABG Base Excess 11.6 H ABG Hemoglobin ABG Carboxyhemoglobin POC ABG HHb (Measured) ABG Methemoglobin ABG O2 Capacity ABG Potassium 5.4 H Hgb O2 Saturation Sodium 164.0 H* Chloride 128.0 H Glucose 127 H Lactate 0.6 L FiO2 28.0 Potassium Carbon Dioxide Anion Gap BUN Creatinine Est GFR ( Amer) Est GFR (Non-Af Amer) POC Glucose (mg/dL) 142 H Random Glucose Calcium Total Bilirubin AST ALT Alkaline Phosphatase Total Protein Albumin Globulin Albumin/Globulin Ratio Triglycerides Cholesterol LDL Cholesterol Direct HDL Cholesterol Free T4 TSH 3rd Generation Arterial Blood Potassium 5.4 H Urine Color Light yellow Urine Appearance Clear Urine pH 7.0 Ur Specific Hammond 1.015 Urine Protein 30 H Urine Glucose (UA) Negative Urine Ketones Negative Urine Blood Trace-intact H Urine Nitrate Negative Urine Bilirubin Negative Urine Urobilinogen 0.2 Ur Leukocyte Esterase Negative Urine RBC 0 - 2 Urine WBC 0 - 2 Ur Epithelial Cells 0 - 2 Urine Bacteria Mod 11/01/17 11/01/17 11/02/17 22:00 22:00 01:50 WBC RBC Hgb Hct MCV MCH MCHC RDW Plt Count MPV Gran % Lymph % (Auto) Jefferson % (Auto) Eos % (Auto) Baso % (Auto) Gran # Lymph # (Auto) Jefferson # (Auto) Eos # (Auto) Baso # (Auto) PT INR APTT pCO2 pO2 HCO3 ABG pH ABG Total CO2 ABG O2 Saturation ABG O2 Content ABG Base Excess ABG Hemoglobin ABG Carboxyhemoglobin POC ABG HHb (Measured) ABG Methemoglobin ABG O2 Capacity ABG Potassium Hgb O2 Saturation Sodium 164 H* 164 H* Chloride 118 H 119 H Glucose Lactate FiO2 Potassium 5.7 H* 5.0 Carbon Dioxide 32 29 Anion Gap 20 22 H BUN 47 H 72 H Creatinine 5.3 H 5.3 H Est GFR ( Amer) 10 10 Est GFR (Non-Af Amer) 8 8 POC Glucose (mg/dL) Random Glucose 142 H 153 H Calcium 9.4 9.5 Total Bilirubin AST ALT Alkaline Phosphatase Total Protein Albumin Globulin Albumin/Globulin Ratio Triglycerides Cholesterol LDL Cholesterol Direct HDL Cholesterol Free T4 0.87 TSH 3rd Generation 1.25 Arterial Blood Potassium Urine Color Urine Appearance Urine pH Ur Specific Hammond Urine Protein Urine Glucose (UA) Urine Ketones Urine Blood Urine Nitrate Urine Bilirubin Urine Urobilinogen Ur Leukocyte Esterase Urine RBC Urine WBC Ur Epithelial Cells Urine Bacteria 11/02/17 11/02/17 11/02/17 05:30 05:30 06:18 WBC 4.8 RBC 3.38 L Hgb 9.8 L Hct 37.0 MCV 109.5 H MCH 29.0 MCHC 26.5 L RDW 17.8 H Plt Count 107 L MPV 11.3 H Gran % 62.1 Lymph % (Auto) 23.4 Jefferson % (Auto) 12.0 H Eos % (Auto) 2.1 Baso % (Auto) 0.4 Gran # 2.95 Lymph # (Auto) 1.1 L Jefferson # (Auto) 0.6 Eos # (Auto) 0.1 Baso # (Auto) 0.02 PT INR APTT pCO2 67 H pO2 112.0 H HCO3 37.9 H ABG pH 7.36 ABG Total CO2 40.0 H ABG O2 Saturation 99.2 H ABG O2 Content 12.9 L ABG Base Excess 10.6 H ABG Hemoglobin 9.5 L ABG Carboxyhemoglobin 2.4 H POC ABG HHb (Measured) 0.8 ABG Methemoglobin 1.7 ABG O2 Capacity 13.0 L ABG Potassium Hgb O2 Saturation 95.2 Sodium 162 H* Chloride 118 H Glucose Lactate FiO2 50.0 Potassium 5.4 H Carbon Dioxide 32 Anion Gap 19 BUN 73 H Creatinine 5.4 H Est GFR ( Amer) 9 Est GFR (Non-Af Amer) 8 POC Glucose (mg/dL) Random Glucose 124 H Calcium 8.9 Total Bilirubin 0.5 AST 23 ALT 22 Alkaline Phosphatase 84 Total Protein 5.8 Albumin 3.1 Globulin 2.7 Albumin/Globulin Ratio 1.1 Triglycerides 122 Cholesterol 183 LDL Cholesterol Direct 73 HDL Cholesterol 68 H Free T4 TSH 3rd Generation Arterial Blood Potassium Urine Color Urine Appearance Urine pH Ur Specific Hammond Urine Protein Urine Glucose (UA) Urine Ketones Urine Blood Urine Nitrate Urine Bilirubin Urine Urobilinogen Ur Leukocyte Esterase Urine RBC Urine WBC Ur Epithelial Cells Urine Bacteria 11/02/17 11/02/17 11/02/17 07:19 09:40 09:40 WBC RBC Hgb Hct MCV MCH MCHC RDW Plt Count MPV Gran % Lymph % (Auto) Jefferson % (Auto) Eos % (Auto) Baso % (Auto) Gran # Lymph # (Auto) Jefferson # (Auto) Eos # (Auto) Baso # (Auto) PT 10.9 INR 0.95 APTT 36.0 pCO2 pO2 HCO3 ABG pH ABG Total CO2 ABG O2 Saturation ABG O2 Content ABG Base Excess ABG Hemoglobin ABG Carboxyhemoglobin POC ABG HHb (Measured) ABG Methemoglobin ABG O2 Capacity ABG Potassium Hgb O2 Saturation Sodium 161 H* Chloride 115 H Glucose Lactate FiO2 Potassium 5.2 H Carbon Dioxide 37 H Anion Gap 15 BUN 75 H Creatinine 5.4 H Est GFR ( Amer) 9 Est GFR (Non-Af Amer) 8 POC Glucose (mg/dL) 125 H Random Glucose 132 H Calcium 8.7 Total Bilirubin AST ALT Alkaline Phosphatase Total Protein Albumin Globulin Albumin/Globulin Ratio Triglycerides Cholesterol LDL Cholesterol Direct HDL Cholesterol Free T4 TSH 3rd Generation Arterial Blood Potassium Urine Color Urine Appearance Urine pH Ur Specific Hammond Urine Protein Urine Glucose (UA) Urine Ketones Urine Blood Urine Nitrate Urine Bilirubin Urine Urobilinogen Ur Leukocyte Esterase Urine RBC Urine WBC Ur Epithelial Cells Urine Bacteria 11/02/17 11:06 WBC RBC Hgb Hct MCV MCH MCHC RDW Plt Count MPV Gran % Lymph % (Auto) Jefferson % (Auto) Eos % (Auto) Baso % (Auto) Gran # Lymph # (Auto) Jefferson # (Auto) Eos # (Auto) Baso # (Auto) PT INR APTT pCO2 pO2 HCO3 ABG pH ABG Total CO2 ABG O2 Saturation ABG O2 Content ABG Base Excess ABG Hemoglobin ABG Carboxyhemoglobin POC ABG HHb (Measured) ABG Methemoglobin ABG O2 Capacity ABG Potassium Hgb O2 Saturation Sodium Chloride Glucose Lactate FiO2 Potassium Carbon Dioxide Anion Gap BUN Creatinine Est GFR ( Amer) Est GFR (Non-Af Amer) POC Glucose (mg/dL) 120 H Random Glucose Calcium Total Bilirubin AST ALT Alkaline Phosphatase Total Protein Albumin Globulin Albumin/Globulin Ratio Triglycerides Cholesterol LDL Cholesterol Direct HDL Cholesterol Free T4 TSH 3rd Generation Arterial Blood Potassium Urine Color Urine Appearance Urine pH Ur Specific Hammond Urine Protein Urine Glucose (UA) Urine Ketones Urine Blood Urine Nitrate Urine Bilirubin Urine Urobilinogen Ur Leukocyte Esterase Urine RBC Urine WBC Ur Epithelial Cells Urine Bacteria Critical Care Progress Note - Nutrition Nutrition: Nutrition Category Date Time Status NPO Diet [DIET] Diets 11/01/17 Dinner Ordered Assessment/Plan - Assessment and Plan (Free Text) Plan: Pt seen and examined on rounds with resident, agree with note with following additions/exceptions: 77yo female with PMHx of CKD, COPD, Dementia, CVA, a/w AMS, lethargy, hypernatremia AMS Lethargy Hypernatremia Dehydration Acute on Chronic renal failure COPD - currently afebrile, HD stable, comfortable, in NAD, lying in bed, opens eyes to name, does not follow commands - labs with hypernatremia, that is improving, hyperkalemia, given kayex, acute on CKD - CXR without focal consolidation, WBC wnl - CT head without contrast negative for acute findings Recommend: - supp o2 as needed - ejssica culture, check procal - BCX, UCx - BP control - NPO - speech swallow eval - check TSH, Ulytes - IVF, D5W @ 125cc/hr (free water deficit ~2.2L) - monitor BMP q12hr - renal follow up - monitor HH - FS control - GI ppx - DVT ppx - Monitor in MICU
[2017-11-02 07:44] LABS: ALB/GLOB RATIO 1.1 (1.1-1.8); ALBUMIN 3.1 g/dL (3.0-4.8); CALCIUM 8.9 mg/dL (8.4-10.5)
--- NOTE | 2017-11-02 08:13 | CT ---
PROCEDURE: CT HEAD WITHOUT CONTRAST. HISTORY: altered mental status COMPARISON: 1. TECHNIQUE: Axial computed tomography images were obtained through the head/brain without intravenous contrast. Radiation dose: Total exam DLP = mGy-cm. This CT exam was performed using one or more of the following dose reduction techniques: Automated exposure control, adjustment of the mA and/or kV according to patient size, and/or use of iterative reconstruction technique. FINDINGS: HEMORRHAGE: No intracranial hemorrhage. BRAIN: No mass effect or edema. Extensive atrophy and chronic microvascular ischemic changes. VENTRICLES: Unremarkable. No hydrocephalus. CALVARIUM: Unremarkable. PARANASAL SINUSES: Unremarkable as visualized. No significant inflammatory changes. MASTOID AIR CELLS: Unremarkable as visualized. No inflammatory changes. OTHER FINDINGS: None. IMPRESSION: Extensive atrophy and chronic microvascular ischemic changes.
[2017-11-02] MEDS ORDERED: Sod Polystyrene Sulf 15 gm/60 ml Susp PR ONE (09:19)
[2017-11-02 10:06] LABS: CALCIUM 8.7 mg/dL (8.4-10.5)
[2017-11-02 10:08] LABS: INR 0.95 (0.93-1.08); PROTHROMBIN TIME 10.9 SECONDS (9.4-12.5)
--- NOTE | 2017-11-02 12:11 | CP.PCM.PN ---
<Ember Magaña - Last Filed: 11/02/17 13:15> Subjective - Date & Time of Evaluation Date of Evaluation: 11/02/17 Time of Evaluation: 12:10 - Subjective Subjective: Ember Magaña, PGY1, Medicine Progress Note for Dr Dowling: Patient seen and examined at bedside. Pt on bipap overnight, currently on nasal cannula. Pt hyperkalemic overnight, K 5.7, given regular 10 units insulin with D50. This AM, pt somnolent, but arousable, nonverbal at baseline. Denies pain. ROS unobtainable due to patient is nonverbal at baseline. Objective - Vital Signs/Intake and Output Vital Signs (last 24 hours): Temp Pulse Resp BP Pulse Ox 98.4 F 75 19 101/65 97 11/02/17 04:00 11/02/17 11:10 11/02/17 11:10 11/02/17 11:00 11/02/17 11:10 Intake and Output: 11/02/17 11/02/17 06:59 18:59 Intake Total 600 Output Total 140 Balance 460 - Medications Medications: Current Medications Albuterol/Ipratropium (Duoneb 3 Mg/0.5 Mg (3 Ml) Ud) 3 ml IH [id number] [facility] Last Admin: 11/02/17 11:25 Dose: 3 ml Albuterol/Ipratropium (Duoneb 3 Mg/0.5 Mg (3 Ml) Ud) 3 ml IH Q2H PRN PRN Reason: Shortness of Breath Hydralazine HCl (Apresoline) 10 mg IVP Q6 PRN PRN Reason: Systolic Blood Pressure Dextrose (Dextrose 5% In Water 1000 Ml) 1,000 mls @ 125 mls/hr IV .Q8H [facility] Last Admin: 11/02/17 09:41 Dose: 125 mls/hr Pantoprazole Sodium (Protonix Inj) 40 mg IVP DAILY [facility] Last Admin: 11/02/17 09:45 Dose: 40 mg - Labs Labs: 11/02/17 05:30 11/02/17 09:40 PT 10.9 SECONDS (9.4-12.5) 11/02/17 09:40 INR 0.95 (0.93-1.08) 11/02/17 09:40 APTT 36.0 Seconds (25.1-36.5) 11/02/17 09:40 - Constitutional Appears: Non-toxic, No Acute Distress, Older Than Stated Age - Head Exam Head Exam: ATRAUMATIC, NORMOCEPHALIC - Eye Exam Eye Exam: PERRL. absent: Conjunctival injection, Nystagmus, Scleral icterus Pupil Exam: PERRL. absent: Fixed, Irregular, Unequal - ENT Exam ENT Exam: Mucous Membranes Dry - Neck Exam Neck Exam: Full ROM - Respiratory Exam Respiratory Exam: Clear to Ausculation Bilateral, NORMAL BREATHING PATTERN. absent: Accessory Muscle Use, Rhonchi, Wheezes, Respiratory Distress - Cardiovascular Exam Cardiovascular Exam: RRR, +S1, +S2. absent: Murmur - GI/Abdominal Exam GI & Abdominal Exam: Soft, Normal Bowel Sounds. absent: Distended, Tenderness, Mass, Organomegaly, Rebound - Extremities Exam Extremities Exam: Normal Inspection. absent: Calf Tenderness, Pedal Edema - Back Exam Back Exam: NORMAL INSPECTION - Neurological Exam Neurological Exam: Altered - Psychiatric Exam Psychiatric exam: Flat Affect Additional comments: low energy, somnolent. - Skin Skin Exam: Dry, Normal Color, Warm Assessment and Plan - Assessment and Plan (Free Text) Assessment: 77 year old female with hx of HTN, asthma, Parkinson's, recent [facility] admission for AMS/hypernatremia, presents for AMS, FTT, found to be profoundly hypernatremic, AVERY: Hypernatremia: 2/2 poor oral intake vs renal losses vs GI loss vs insensible losses - Free water deficit 4.2 L, will avoid rapid correction (6-8 mmol/day or <0.5 meq/h) - D5W @125. BMP q 4h. Cont to monitor - F/u urine osm, urine Na/lytes. - nephro consulted. f/u recs - ICU management - Seizure/fall precautions AMS/lethargy: 2/2 hypernatremia vs infectious etiology vs ftt - correct hypernatemia as above - CXR neg. UA neg for infection. f/u urine culture, blood culture, procal - ABG with shock panel - no leukocytosis, afebrile - cont to monitor Hyperkalemia: -mild. no EKG changes. Will cont to monitor. Failure to thrive: - Dehydrated, no oral intake over several days - Formal speech and swallow eval - NPO - Aspiration precautions AVERY: Likely secondary to dehydration vs ATN - Pt has hx of CKD - Nephro consulted. f/u recs - UA, Osm, Antione, Ucr. will calculate fena - daily cmp/ cont to monitor. Thrombocytopenia: 2/2 heparin induced thrombocytopenia vs protonix side effect vs dilutional - Plt 107 today. previously 320s on 10/22/17. (>50% drop in plts) - Stopped Heparin. switched to SCDs for dvt ppx - Sent HIT antibody. - Switched protonix to pepcid for gi ppx. Prophylaxis Pepcid SCDs Discussed with Dr Dowling. Ember Magaña, PGY1 <Cheyanne Dowling - Last Filed: 11/02/17 15:06> Objective - Vital Signs/Intake and Output Vital Signs (last 24 hours): Temp Pulse Resp BP Pulse Ox 98.4 F 75 19 101/65 97 11/02/17 04:00 11/02/17 11:10 11/02/17 11:10 11/02/17 11:00 11/02/17 11:10 Intake and Output: 11/02/17 11/02/17 06:59 18:59 Intake Total 600 Output Total 140 Balance 460 - Medications Medications: Current Medications Albuterol/Ipratropium (Duoneb 3 Mg/0.5 Mg (3 Ml) Ud) 3 ml IH [id number] [facility] Last Admin: 11/02/17 11:25 Dose: 3 ml Albuterol/Ipratropium (Duoneb 3 Mg/0.5 Mg (3 Ml) Ud) 3 ml IH Q2H PRN PRN Reason: Shortness of Breath Famotidine (Pepcid) 20 mg IVP DAILY [facility] Hydralazine HCl (Apresoline) 10 mg IVP Q6 PRN PRN Reason: Systolic Blood Pressure Dextrose (Dextrose 5% In Water 1000 Ml) 1,000 mls @ 125 mls/hr IV .Q8H [facility] Last Admin: 11/02/17 09:41 Dose: 125 mls/hr - Labs Labs: 11/02/17 05:30 11/02/17 13:05 PT 10.9 SECONDS (9.4-12.5) 11/02/17 09:40 INR 0.95 (0.93-1.08) 11/02/17 09:40 APTT 36.0 Seconds (25.1-36.5) 11/02/17 09:40 Attending/Attestation - Attestation I have personally seen and examined this patient.: Yes I have fully participated in the care of the patient.: Yes I have reviewed all pertinent clinical information, including history, physical exam and plan: Yes Notes (Text): 11/02/17 15:02 77 year old female with past medical history of hypertension, asthma/COPD, Parkinson's, and CKD who presented with altered mental status, found to have severe hypernatremia, acute on chronic kidney disease, and CO2 retention. Her hypernatremia is slowly improving on IVF. Nephrology is following. Continue with bipap at night with serial ABG monitoring. Continue with fluids for acute on chronic renal disease. Thrombocytopenia noted; will hold heparin for now and start SCDs. Cheyanne Dowling MD Hospitalist.
[2017-11-02 13:38] LABS: CALCIUM 8.7 mg/dL (8.4-10.5)
--- NOTE | 2017-11-02 16:03 | CARD ---
APPROVED REPORT EKG Measurement Heart [id number] <Conclusion> Normal sinus rhythm Possible Left atrial enlargement Left axis deviation Left ventricular hypertrophy Nonspecific ST and T wave abnormality Abnormal ECG
[2017-11-03] MEDS: Albuterol-Ipratrop 3 mg / 0.5 (3 ml) UD IH SCH ×5 (01:02→20:20)
--- NOTE | 2017-11-03 01:15 | CON ---
DATE: 11/02/2017 REASON FOR CONSULTATION: Hypernatremia, hyperkalemia, acute kidney injury. HISTORY OF PRESENT ILLNESS: A 77-year-old lady previously unknown to me, was brought to the emergency room because of lethargy, poor p.o. intake, altered mental status. As per the nursing staff, patient was recently discharged. She was in the ICU, on mechanical ventilation, for hypercapnic respiratory failure. She has a history of dementia, COPD, hypertension, chronic kidney disease, CVA in the past. Family members reported that she is found to be lethargic, less interactive, with decreased p.o. intake. She has been receiving IV fluids. In the emergency room, she was found to have a sodium of 164, BUN of 74, creatinine of 5.4. Today's sodium is down to 159. She is seen in ICU. She is arousable. She is still lethargic, but as per nursing staff, she is much more interactive. PAST MEDICAL AND SURGICAL HISTORY: COPD, hypertension, dementia, CVA, chronic kidney disease, stage IV. FAMILY HISTORY: Noncontributory. SOCIAL HISTORY: No smoking, no alcohol use, no IV drug abuse. ALLERGIES: NO KNOWN DRUG ALLERGIES. CURRENT MEDICATIONS: Hydralazine, D5W at 125, DuoNeb, Pepcid. REVIEW OF SYSTEMS: Unavailable as the patient is very lethargic. PHYSICAL EXAMINATION: GENERAL: Elderly, thinly-built lady, lying in bed. VITAL SIGNS: Blood pressure 101/65, heart rate 77, respiratory rate 23, temperature 98.4. HEENT: Normocephalic, atraumatic, positive pallor. NECK: Supple, no JVD. LUNGS: Bilateral equal entry, bilateral equal expansion, no rales. CARDIAC: S1, S2, regular rate and rhythm. No murmur, no rub. ABDOMEN: Soft, nondistended, nontender, bowel sounds present. EXTREMITIES: No lower extremity edema. LABORATORY DATA: WBC 4.8, hemoglobin 9.8, hematocrit 37, platelets 107. Sodium 159, potassium 4.8, chloride 116, CO2 32, BUN 73, creatinine 5.4, glucose 174, calcium 8.7. Urinalysis, light yellow, clear, pH 7.0, specific gravity 1.015, protein 30, blood trace intact, leukocyte esterase negative. PH 7.36, PCO2 67, PO2 112. Renal ultrasound from 10/08, echogenic kidneys suggesting medical renal disease. ASSESSMENT: 1. Acute kidney injury superimposed on chronic kidney disease, stage IV. 2. Severe hypernatremia/dehydration. 3. Hyperkalemia secondary to acute kidney injury. 4. Hypercapnic respiratory acidosis. 5. Dementia. 6. Chronic obstructive pulmonary disease. 7. History of cerebrovascular accident. 8. Poor by mouth intake. PLAN: 1. Continue hypotonic IV fluids. 2. Consider placement of NG tube and giving free water if patient is unable to swallow. 3. Monitor urine output. 4. Monitor labs closely. 5. Case is discussed with ICU team at length. 6. More than 35 minutes spent in the care of this critically ill patient. Juli Montelongo MD
--- NOTE | 2017-11-03 07:09 | CP.CCUPN ---
<Lina Torres - Last Filed: 11/03/17 10:29> CCU Subjective - Physician Review Subjective (Free Text): 11/03/17 7:33 Patient appears more alert. No acute overnight events. Patient is non verbal, thus unable to obtain ROS. Critical Care Time Spent (in minutes): 45 CCU Objective - Vital Signs / Intake & Output Vital Signs (Last 4 hours): Vital Signs Pulse Resp BP Pulse Ox 11/03/17 04:40 90 36 H 96 11/03/17 04:30 89 36 H 99 11/03/17 04:20 88 96 11/03/17 04:10 89 39 H 89 L 11/03/17 04:01 89 31 H 121/77 90 L 11/03/17 04:00 89 44 H 95 11/03/17 03:50 90 39 H 11/03/17 03:40 89 34 H 99 11/03/17 03:30 89 35 H 97 11/03/17 03:20 89 34 H 95 11/03/17 03:10 91 H 36 H 95 Intake and Output (Last 8hrs): Intake & Output 11/02/17 11/03/17 11/03/17 22:59 06:59 14:59 Intake Total 1500 Output Total 175 Balance 1325 Intake: IV 1500 Left Hand 1500 Output: Urine 175 Urethral (Basurto) 175 - Physical Exam Head: Positive for: Atraumatic, Normocephalic Pupils: Positive for: PERRL Extroacular Muscles: Positive for: EOMI Conjunctiva: Positive for: Normal Mouth: Positive for: Moist Mucous Membranes Neck: Positive for: Normal Range of Motion Respiratory/Chest: Positive for: Clear to Auscultation, Good Air Exchange. Negative for: Respiratory Distress, Accessory Muscle Use, Wheezes, Decreased Breath Sounds, Rales, Retracting, Rhonchi, Tachypneic Cardiovascular: Positive for: Regular Rate and Rhythm, Normal S1, S2. Negative for: Murmurs, Tachycardic, Bradycardic Abdomen: Positive for: Normal Bowel Sounds. Negative for: Tenderness, Distention, Peritoneal Signs, Mass/Organomegaly Back: Positive for: Normal Inspection Upper Extremity: Positive for: Normal Inspection. Negative for: Edema Lower Extremity: Positive for: Normal Inspection. Negative for: Edema Neurological: Negative for: Speech Normal (nonverbal), Other (no focal deficits) Skin: Positive for: Warm, Dry Psychiatric: Positive for: Alert, Other (awake, and follows command.) - Medications Active Medications: Active Medications Generic Name Dose Route Start Last Admin Trade Name Freq PRN Reason Stop Dose Admin Albuterol/Ipratropium 3 ml 11/01/17 19:30 11/03/17 05:00 Duoneb 3 Mg/0.5 Mg (3 Ml) Ud IH 3 ml [id number] DAVID Administration Albuterol/Ipratropium 3 ml 11/01/17 19:02 Duoneb 3 Mg/0.5 Mg (3 Ml) Ud IH Q2H PRN Shortness of Breath Famotidine 20 mg 11/02/17 13:30 11/02/17 15:10 Pepcid IVP 20 mg DAILY DAVID Administration Hydralazine HCl 10 mg 11/01/17 17:33 Apresoline IVP Q6 PRN Systolic Blood Pressure Dextrose 1,000 mls @ 125 mls/hr 11/02/17 09:19 11/03/17 03:06 Dextrose 5% In Water 1000 Ml IV 125 mls/hr .Q8H DAVID Administration - Patient Studies Lab Studies: Microbiology Studies 11/01/17 17:30 Blood Culture - Preliminary Blood NO GROWTH AFTER 24 HOURS 11/01/17 17:30 Blood Culture - Preliminary Blood NO GROWTH AFTER 24 HOURS Lab Studies 11/02/17 11/02/17 11/02/17 Range/Units 21:37 15:57 13:05 WBC (4.5-11.0) 10^3/ul RBC (3.5-6.1) 10^6/uL Hgb (12.0-16.0) g/dL Hct (36.0-48.0) % MCV (80.0-105.0) fl MCH (25.0-35.0) pg MCHC (31.0-37.0) g/dl RDW (11.5-14.5) % Plt Count (120.0-450.0) 10^3/uL MPV (7.0-11.0) fl Gran % (50.0-68.0) % Lymph % (Auto) (22.0-35.0) % Ballard % (Auto) (1.0-6.0) % Eos % (Auto) (1.5-5.0) % Baso % (Auto) (0.0-3.0) % Gran # (1.4-6.5) Lymph # (Auto) (1.2-3.4) Ballard # (Auto) (0.1-0.6) Eos # (Auto) (0.0-0.7) Baso # (Auto) (0.0-2.0) K/mm3 PT (9.4-12.5) SECONDS INR (0.93-1.08) APTT (25.1-36.5) Seconds Sodium 159 H* (132-148) mmol/L Potassium 4.8 (3.6-5.0) mmol/L Chloride 116 H (98-107) mmol/L Carbon Dioxide 32 (21-33) mmol/L Anion Gap 15 (10-20) BUN 73 H (7-21) mg/dL Creatinine 5.4 H (0.7-1.2) mg/dl Est GFR ( Amer) 9 Est GFR (Non-Af Amer) 8 POC Glucose (mg/dL) 150 H 190 H (65-110) mg/dL Random Glucose 174 H (70-110) mg/dL Calcium 8.7 (8.4-10.5) mg/dL Total Bilirubin (0.2-1.3) mg/dL AST (14-36) U/L ALT (7-56) U/L Alkaline Phosphatase (38-126) U/L Total Protein (5.8-8.3) g/dL Albumin (3.0-4.8) g/dL Globulin gm/dL Albumin/Globulin Ratio (1.1-1.8) Triglycerides (35-160) mg/dL Cholesterol (130-200) mg/dL LDL Cholesterol Direct (0-129) mg/dL HDL Cholesterol (29-60) mg/dL Procalcitonin (0.19-0.49) NG/ML 11/02/17 11/02/17 11/02/17 Range/Units 11:06 09:40 09:40 WBC (4.5-11.0) 10^3/ul RBC (3.5-6.1) 10^6/uL Hgb (12.0-16.0) g/dL Hct (36.0-48.0) % MCV (80.0-105.0) fl MCH (25.0-35.0) pg MCHC (31.0-37.0) g/dl RDW (11.5-14.5) % Plt Count (120.0-450.0) 10^3/uL MPV (7.0-11.0) fl Gran % (50.0-68.0) % Lymph % (Auto) (22.0-35.0) % Ballard % (Auto) (1.0-6.0) % Eos % (Auto) (1.5-5.0) % Baso % (Auto) (0.0-3.0) % Gran # (1.4-6.5) Lymph # (Auto) (1.2-3.4) Ballard # (Auto) (0.1-0.6) Eos # (Auto) (0.0-0.7) Baso # (Auto) (0.0-2.0) K/mm3 PT 10.9 (9.4-12.5) SECONDS INR 0.95 (0.93-1.08) APTT 36.0 (25.1-36.5) Seconds Sodium 161 H* (132-148) mmol/L Potassium 5.2 H (3.6-5.0) mmol/L Chloride 115 H (98-107) mmol/L Carbon Dioxide 37 H (21-33) mmol/L Anion Gap 15 (10-20) BUN 75 H (7-21) mg/dL Creatinine 5.4 H (0.7-1.2) mg/dl Est GFR ( Amer) 9 Est GFR (Non-Af Amer) 8 POC Glucose (mg/dL) 120 H (65-110) mg/dL Random Glucose 132 H (70-110) mg/dL Calcium 8.7 (8.4-10.5) mg/dL Total Bilirubin (0.2-1.3) mg/dL AST (14-36) U/L ALT (7-56) U/L Alkaline Phosphatase (38-126) U/L Total Protein (5.8-8.3) g/dL Albumin (3.0-4.8) g/dL Globulin gm/dL Albumin/Globulin Ratio (1.1-1.8) Triglycerides (35-160) mg/dL Cholesterol (130-200) mg/dL LDL Cholesterol Direct (0-129) mg/dL HDL Cholesterol (29-60) mg/dL Procalcitonin (0.19-0.49) NG/ML 11/02/17 11/02/17 11/02/17 Range/Units 07:19 05:30 05:30 WBC 4.8 (4.5-11.0) 10^3/ul RBC 3.38 L (3.5-6.1) 10^6/uL Hgb 9.8 L (12.0-16.0) g/dL Hct 37.0 (36.0-48.0) % MCV 109.5 H (80.0-105.0) fl MCH 29.0 (25.0-35.0) pg MCHC 26.5 L (31.0-37.0) g/dl RDW 17.8 H (11.5-14.5) % Plt Count 107 L (120.0-450.0) 10^3/uL MPV 11.3 H (7.0-11.0) fl Gran % 62.1 (50.0-68.0) % Lymph % (Auto) 23.4 (22.0-35.0) % Ballard % (Auto) 12.0 H (1.0-6.0) % Eos % (Auto) 2.1 (1.5-5.0) % Baso % (Auto) 0.4 (0.0-3.0) % Gran # 2.95 (1.4-6.5) Lymph # (Auto) 1.1 L (1.2-3.4) Ballard # (Auto) 0.6 (0.1-0.6) Eos # (Auto) 0.1 (0.0-0.7) Baso # (Auto) 0.02 (0.0-2.0) K/mm3 PT (9.4-12.5) SECONDS INR (0.93-1.08) APTT (25.1-36.5) Seconds Sodium 162 H* (132-148) mmol/L Potassium 5.4 H (3.6-5.0) mmol/L Chloride 118 H (98-107) mmol/L Carbon Dioxide 32 (21-33) mmol/L Anion Gap 19 (10-20) BUN 73 H (7-21) mg/dL Creatinine 5.4 H (0.7-1.2) mg/dl Est GFR ( Amer) 9 Est GFR (Non-Af Amer) 8 POC Glucose (mg/dL) 125 H (65-110) mg/dL Random Glucose 124 H (70-110) mg/dL Calcium 8.9 (8.4-10.5) mg/dL Total Bilirubin 0.5 (0.2-1.3) mg/dL AST 23 (14-36) U/L ALT 22 (7-56) U/L Alkaline Phosphatase 84 (38-126) U/L Total Protein 5.8 (5.8-8.3) g/dL Albumin 3.1 (3.0-4.8) g/dL Globulin 2.7 gm/dL Albumin/Globulin Ratio 1.1 (1.1-1.8) Triglycerides 122 (35-160) mg/dL Cholesterol 183 (130-200) mg/dL LDL Cholesterol Direct 73 (0-129) mg/dL HDL Cholesterol 68 H (29-60) mg/dL Procalcitonin (0.19-0.49) NG/ML 11/01/17 Range/Units 18:16 WBC (4.5-11.0) 10^3/ul RBC (3.5-6.1) 10^6/uL Hgb (12.0-16.0) g/dL Hct (36.0-48.0) % MCV (80.0-105.0) fl MCH (25.0-35.0) pg MCHC (31.0-37.0) g/dl RDW (11.5-14.5) % Plt Count (120.0-450.0) 10^3/uL MPV (7.0-11.0) fl Gran % (50.0-68.0) % Lymph % (Auto) (22.0-35.0) % Ballard % (Auto) (1.0-6.0) % Eos % (Auto) (1.5-5.0) % Baso % (Auto) (0.0-3.0) % Gran # (1.4-6.5) Lymph # (Auto) (1.2-3.4) Ballard # (Auto) (0.1-0.6) Eos # (Auto) (0.0-0.7) Baso # (Auto) (0.0-2.0) K/mm3 PT (9.4-12.5) SECONDS INR (0.93-1.08) APTT (25.1-36.5) Seconds Sodium (132-148) mmol/L Potassium (3.6-5.0) mmol/L Chloride (98-107) mmol/L Carbon Dioxide (21-33) mmol/L Anion Gap (10-20) BUN (7-21) mg/dL Creatinine (0.7-1.2) mg/dl Est GFR ( Amer) Est GFR (Non-Af Amer) POC Glucose (mg/dL) (65-110) mg/dL Random Glucose (70-110) mg/dL Calcium (8.4-10.5) mg/dL Total Bilirubin (0.2-1.3) mg/dL AST (14-36) U/L ALT (7-56) U/L Alkaline Phosphatase (38-126) U/L Total Protein (5.8-8.3) g/dL Albumin (3.0-4.8) g/dL Globulin gm/dL Albumin/Globulin Ratio (1.1-1.8) Triglycerides (35-160) mg/dL Cholesterol (130-200) mg/dL LDL Cholesterol Direct (0-129) mg/dL HDL Cholesterol (29-60) mg/dL Procalcitonin 0.71 H (0.19-0.49) NG/ML Laboratory Results - last 24 hr 11/01/17 11/02/17 11/02/17 18:16 05:30 05:30 WBC 4.8 RBC 3.38 L Hgb 9.8 L Hct 37.0 MCV 109.5 H MCH 29.0 MCHC 26.5 L RDW 17.8 H Plt Count 107 L MPV 11.3 H Gran % 62.1 Lymph % (Auto) 23.4 Ballard % (Auto) 12.0 H Eos % (Auto) 2.1 Baso % (Auto) 0.4 Gran # 2.95 Lymph # (Auto) 1.1 L Ballard # (Auto) 0.6 Eos # (Auto) 0.1 Baso # (Auto) 0.02 PT INR APTT Sodium 162 H* Potassium 5.4 H Chloride 118 H Carbon Dioxide 32 Anion Gap 19 BUN 73 H Creatinine 5.4 H Est GFR ( Amer) 9 Est GFR (Non-Af Amer) 8 POC Glucose (mg/dL) Random Glucose 124 H Calcium 8.9 Total Bilirubin 0.5 AST 23 ALT 22 Alkaline Phosphatase 84 Total Protein 5.8 Albumin 3.1 Globulin 2.7 Albumin/Globulin Ratio 1.1 Triglycerides 122 Cholesterol 183 LDL Cholesterol Direct 73 HDL Cholesterol 68 H Procalcitonin 0.71 H 18 11/02/17 11/02/17 07:19 09:40 09:40 WBC RBC Hgb Hct MCV MCH MCHC RDW Plt Count MPV Gran % Lymph % (Auto) Ballard % (Auto) Eos % (Auto) Baso % (Auto) Gran # Lymph # (Auto) Ballard # (Auto) Eos # (Auto) Baso # (Auto) PT 10.9 INR 0.95 APTT 36.0 Sodium 161 H* Potassium 5.2 H Chloride 115 H Carbon Dioxide 37 H Anion Gap 15 BUN 75 H Creatinine 5.4 H Est GFR ( Amer) 9 Est GFR (Non-Af Amer) 8 POC Glucose (mg/dL) 125 H Random Glucose 132 H Calcium 8.7 Total Bilirubin AST ALT Alkaline Phosphatase Total Protein Albumin Globulin Albumin/Globulin Ratio Triglycerides Cholesterol LDL Cholesterol Direct HDL Cholesterol Procalcitonin 11/02/17 11/02/17 11/02/17 11:06 13:05 15:57 WBC RBC Hgb Hct MCV MCH MCHC RDW Plt Count MPV Gran % Lymph % (Auto) Ballard % (Auto) Eos % (Auto) Baso % (Auto) Gran # Lymph # (Auto) Ballard # (Auto) Eos # (Auto) Baso # (Auto) PT INR APTT Sodium 159 H* Potassium 4.8 Chloride 116 H Carbon Dioxide 32 Anion Gap 15 BUN 73 H Creatinine 5.4 H Est GFR ( Amer) 9 Est GFR (Non-Af Amer) 8 POC Glucose (mg/dL) 120 H 190 H Random Glucose 174 H Calcium 8.7 Total Bilirubin AST ALT Alkaline Phosphatase Total Protein Albumin Globulin Albumin/Globulin Ratio Triglycerides Cholesterol LDL Cholesterol Direct HDL Cholesterol Procalcitonin 11/02/17 21:37 WBC RBC Hgb Hct MCV MCH MCHC RDW Plt Count MPV Gran % Lymph % (Auto) Ballard % (Auto) Eos % (Auto) Baso % (Auto) Gran # Lymph # (Auto) Ballard # (Auto) Eos # (Auto) Baso # (Auto) PT INR APTT Sodium Potassium Chloride Carbon Dioxide Anion Gap BUN Creatinine Est GFR ( Amer) Est GFR (Non-Af Amer) POC Glucose (mg/dL) 150 H Random Glucose Calcium Total Bilirubin AST ALT Alkaline Phosphatase Total Protein Albumin Globulin Albumin/Globulin Ratio Triglycerides Cholesterol LDL Cholesterol Direct HDL Cholesterol Procalcitonin Fingerstick Blood Sugar Results: 149 Results Reviewed to Date: Yes Critical Care Progress Note - Prophylaxis GI Prophylaxis GI: PPI - Prophylaxis DVT Prophylaxis DVT: SCDs - Nutrition Nutrition: Nutrition Category Date Time Status NPO Diet [DIET] Diets 11/01/17 Dinner Ordered Assessment/Plan - Assessment and Plan (Free Text) Assessment: Patient is a 77 y/o with pmhx of dementia, copd, htn, ckd questionable cva who was recently discharged from [facility] s/p hypercapneic respiratory failure s/p intubation and extubation and discharged to rehab, was readmitted to due weakness and lethargy. Patient was found to have hypernatremia due to dehydration. Plan: Neurology: AMS likely due dehydration/hypernatremia- improving - Patient appears more alert today - CT head with no acute ischemic changes. Pulm- h/o COPD with chronic CO2 retention - Patient is saturating well with nasal cannula to maintain spO2 above 90 % - Continue with duonebs prn and standing dose - head of bed above 35 degrees Cardio: Patient is hemodynamically stable Will monitor and maintain MAP above 65% hydralazine prn for sbp above 160 Renal: Hyperkalemia- resolved, will monitor Acute Hypernatremia- improved, continue to monitor AVERY on CKD- nephrology fallowing, creatinine with slight downward trend - urine lytes pending Endo: Will maintain euglycemia Heme: Chronic macrocytic anemia - h/h stable, will continue to monitor ID: Low probability for sepsis. Will continue to monitor. GI: currently NPO due to mental status. On ppi for Gi prophylaxis. speech and swallow to reevaluate. DVT prophylaxis: external compressive devices. Dispo- Patient is hemodynamically stable, and sodium has been trending down steadily, with improvement in mentation. Patient to be transferred to [facility] Patient seen, examined and case discussed with Dr Staples - Date & Time Date: 11/03/17 Time: 10:30 <Fatnasma Staples - Last Filed: 11/03/17 10:57> CCU Objective - Vital Signs / Intake & Output Vital Signs (Last 4 hours): Vital Signs Pulse Resp BP Pulse Ox 11/03/17 08:41 94 H 33 H 11/03/17 08:40 94 H 33 H 11/03/17 08:39 95 H 34 H 11/03/17 08:38 95 H 34 H 11/03/17 08:37 96 H 41 H 11/03/17 08:36 94 H 40 H 11/03/17 08:35 91 H 20 11/03/17 08:30 96 H 30 H 51 L 11/03/17 08:20 96 H 28 H 46 L 11/03/17 08:10 94 H 27 H 64 L 11/03/17 08:00 88 29 H 112/70 50 L 11/03/17 07:50 86 30 H 47 L 11/03/17 07:47 89 28 H 11/03/17 07:46 90 29 H 11/03/17 07:45 89 28 H 11/03/17 07:44 89 26 H 11/03/17 07:43 91 H 27 H 11/03/17 07:42 91 H 29 H 11/03/17 07:41 91 H 25 H 11/03/17 07:40 91 H 27 H 11/03/17 07:39 93 H 28 H 11/03/17 07:38 94 H 29 H 11/03/17 07:37 93 H 35 H 11/03/17 07:36 94 H 34 H 11/03/17 07:35 94 H 33 H 11/03/17 07:34 95 H 33 H 11/03/17 07:33 94 H 35 H 11/03/17 07:32 94 H 25 H 11/03/17 07:31 96 H 32 H 11/03/17 07:30 95 H 38 H 11/03/17 07:29 95 H 33 H 11/03/17 07:28 93 H 34 H 11/03/17 07:27 96 H 37 H 11/03/17 07:26 96 H 33 H 11/03/17 07:25 95 H 36 H 11/03/17 07:24 95 H 38 H 11/03/17 07:23 94 H 31 H 11/03/17 07:22 94 H 31 H 11/03/17 07:21 95 H 33 H 11/03/17 07:20 92 H 29 H 11/03/17 07:19 97 H 29 H 11/03/17 07:18 97 H 33 H 11/03/17 07:17 96 H 11/03/17 07:16 95 H 35 H 11/03/17 07:15 94 H 35 H 11/03/17 07:14 94 H 33 H 11/03/17 07:13 94 H 37 H Intake and Output (Last 8hrs): Intake & Output 11/02/17 11/03/17 11/03/17 22:59 06:59 14:59 Intake Total 1500 1700 Output Total 175 525 Balance 1325 1175 Intake: IV 1500 1700 Left Hand 1500 0 Right Wrist 1700 Oral 0 Output: Urine 175 525 Urethral (Basurto) 175 525 Other: # Bowel Movements 1 - Medications Active Medications: Active Medications Generic Name Dose Route Start Last Admin Trade Name Freq PRN Reason Stop Dose Admin Albuterol/Ipratropium 3 ml 11/01/17 19:02 Duoneb 3 Mg/0.5 Mg (3 Ml) Ud IH Q2H PRN Shortness of Breath Albuterol/Ipratropium 3 ml 11/03/17 14:00 Duoneb 3 Mg/0.5 Mg (3 Ml) Ud IH [id number] DAVID Famotidine 20 mg 11/02/17 13:30 11/02/17 15:10 Pepcid IVP 20 mg DAILY DAVID Administration Hydralazine HCl 10 mg 11/01/17 17:33 Apresoline IVP Q6 PRN Systolic Blood Pressure Dextrose 1,000 mls @ 125 mls/hr 11/02/17 09:19 11/03/17 03:06 Dextrose 5% In Water 1000 Ml IV 125 mls/hr .Q8H DAVID Administration - Patient Studies Lab Studies: Microbiology Studies 11/01/17 18:26 MRSA Culture (Admit) - Final Naris MRSA NOT DETECTED 11/01/17 17:30 Blood Culture - Preliminary Blood NO GROWTH AFTER 24 HOURS 11/01/17 17:30 Blood Culture - Preliminary Blood NO GROWTH AFTER 24 HOURS Lab Studies 11/03/17 11/03/17 11/03/17 Range/Units 08:40 08:40 07:38 WBC 5.0 (4.5-11.0) 10^3/ul RBC 3.33 L (3.5-6.1) 10^6/uL Hgb 9.8 L (12.0-16.0) g/dL Hct 34.6 L (36.0-48.0) % MCV 103.9 D (80.0-105.0) fl MCH 29.4 (25.0-35.0) pg MCHC 28.3 L (31.0-37.0) g/dl RDW 16.9 H (11.5-14.5) % Plt Count 144 (120.0-450.0) 10^3/uL MPV 11.7 H (7.0-11.0) fl Gran % 63.1 (50.0-68.0) % Lymph % (Auto) 26.2 (22.0-35.0) % Ballard % (Auto) 9.5 H (1.0-6.0) % Eos % (Auto) 1.0 L (1.5-5.0) % Baso % (Auto) 0.2 (0.0-3.0) % Gran # 3.14 (1.4-6.5) Lymph # (Auto) 1.3 (1.2-3.4) Ballard # (Auto) 0.5 (0.1-0.6) Eos # (Auto) 0.1 (0.0-0.7) Baso # (Auto) 0.01 (0.0-2.0) K/mm3 Sodium 150 H (132-148) mmol/L Potassium 4.2 (3.6-5.0) mmol/L Chloride 106 (98-107) mmol/L Carbon Dioxide 30 (21-33) mmol/L Anion Gap 17 (10-20) BUN 68 H (7-21) mg/dL Creatinine 5.2 H (0.7-1.2) mg/dl Est GFR ( Amer) 10 Est GFR (Non-Af Amer) 8 POC Glucose (mg/dL) 161 H (65-110) mg/dL Random Glucose 118 H (70-110) mg/dL Calcium 8.1 L (8.4-10.5) mg/dL Total Bilirubin 0.5 (0.2-1.3) mg/dL AST 22 (14-36) U/L ALT 21 (7-56) U/L Alkaline Phosphatase 78 (38-126) U/L Total Protein 6.0 (5.8-8.3) g/dL Albumin 3.2 (3.0-4.8) g/dL Globulin 2.9 gm/dL Albumin/Globulin Ratio 1.1 (1.1-1.8) Procalcitonin (0.19-0.49) NG/ML 11/02/17 11/02/17 11/02/17 Range/Units 21:37 15:57 13:05 WBC (4.5-11.0) 10^3/ul RBC (3.5-6.1) 10^6/uL Hgb (12.0-16.0) g/dL Hct (36.0-48.0) % MCV (80.0-105.0) fl MCH (25.0-35.0) pg MCHC (31.0-37.0) g/dl RDW (11.5-14.5) % Plt Count (120.0-450.0) 10^3/uL MPV (7.0-11.0) fl Gran % (50.0-68.0) % Lymph % (Auto) (22.0-35.0) % Ballard % (Auto) (1.0-6.0) % Eos % (Auto) (1.5-5.0) % Baso % (Auto) (0.0-3.0) % Gran # (1.4-6.5) Lymph # (Auto) (1.2-3.4) Ballard # (Auto) (0.1-0.6) Eos # (Auto) (0.0-0.7) Baso # (Auto) (0.0-2.0) K/mm3 Sodium 159 H* (132-148) mmol/L Potassium 4.8 (3.6-5.0) mmol/L Chloride 116 H (98-107) mmol/L Carbon Dioxide 32 (21-33) mmol/L Anion Gap 15 (10-20) BUN 73 H (7-21) mg/dL Creatinine 5.4 H (0.7-1.2) mg/dl Est GFR ( Amer) 9 Est GFR (Non-Af Amer) 8 POC Glucose (mg/dL) 150 H 190 H (65-110) mg/dL Random Glucose 174 H (70-110) mg/dL Calcium 8.7 (8.4-10.5) mg/dL Total Bilirubin (0.2-1.3) mg/dL AST (14-36) U/L ALT (7-56) U/L Alkaline Phosphatase (38-126) U/L Total Protein (5.8-8.3) g/dL Albumin (3.0-4.8) g/dL Globulin gm/dL Albumin/Globulin Ratio (1.1-1.8) Procalcitonin (0.19-0.49) NG/ML 11/02/17 11/02/17 11/01/17 Range/Units 11:06 07:19 18:16 WBC (4.5-11.0) 10^3/ul RBC (3.5-6.1) 10^6/uL Hgb (12.0-16.0) g/dL Hct (36.0-48.0) % MCV (80.0-105.0) fl MCH (25.0-35.0) pg MCHC (31.0-37.0) g/dl RDW (11.5-14.5) % Plt Count (120.0-450.0) 10^3/uL MPV (7.0-11.0) fl Gran % (50.0-68.0) % Lymph % (Auto) (22.0-35.0) % Ballard % (Auto) (1.0-6.0) % Eos % (Auto) (1.5-5.0) % Baso % (Auto) (0.0-3.0) % Gran # (1.4-6.5) Lymph # (Auto) (1.2-3.4) Ballard # (Auto) (0.1-0.6) Eos # (Auto) (0.0-0.7) Baso # (Auto) (0.0-2.0) K/mm3 Sodium (132-148) mmol/L Potassium (3.6-5.0) mmol/L Chloride (98-107) mmol/L Carbon Dioxide (21-33) mmol/L Anion Gap (10-20) BUN (7-21) mg/dL Creatinine (0.7-1.2) mg/dl Est GFR ( Amer) Est GFR (Non-Af Amer) POC Glucose (mg/dL) 120 H 125 H (65-110) mg/dL Random Glucose (70-110) mg/dL Calcium (8.4-10.5) mg/dL Total Bilirubin (0.2-1.3) mg/dL AST (14-36) U/L ALT (7-56) U/L Alkaline Phosphatase (38-126) U/L Total Protein (5.8-8.3) g/dL Albumin (3.0-4.8) g/dL Globulin gm/dL Albumin/Globulin Ratio (1.1-1.8) Procalcitonin 0.71 H (0.19-0.49) NG/ML Laboratory Results - last 24 hr 11/01/17 11/02/17 11/02/17 18:16 07:19 11:06 WBC RBC Hgb Hct MCV MCH MCHC RDW Plt Count MPV Gran % Lymph % (Auto) Ballard % (Auto) Eos % (Auto) Baso % (Auto) Gran # Lymph # (Auto) Ballard # (Auto) Eos # (Auto) Baso # (Auto) Sodium Potassium Chloride Carbon Dioxide Anion Gap BUN Creatinine Est GFR ( Amer) Est GFR (Non-Af Amer) POC Glucose (mg/dL) 125 H 120 H Random Glucose Calcium Total Bilirubin AST ALT Alkaline Phosphatase Total Protein Albumin Globulin Albumin/Globulin Ratio Procalcitonin 0.71 H 11/02/17 11/02/17 11/02/17 13:05 15:57 21:37 WBC RBC Hgb Hct MCV MCH MCHC RDW Plt Count MPV Gran % Lymph % (Auto) [place] % (Auto) Eos % (Auto) Baso % (Auto) Gran # Lymph # (Auto) [place] # (Auto) Eos # (Auto) Baso # (Auto) Sodium 159 H* Potassium 4.8 Chloride 116 H Carbon Dioxide 32 Anion Gap 15 BUN 73 H Creatinine 5.4 H Est GFR ( Amer) 9 Est GFR (Non-Af Amer) 8 POC Glucose (mg/dL) 190 H 150 H Random Glucose 174 H Calcium 8.7 Total Bilirubin AST ALT Alkaline Phosphatase Total Protein Albumin Globulin Albumin/Globulin Ratio Procalcitonin 11/03/17 11/03/17 11/03/17 07:38 08:40 08:40 WBC 5.0 RBC 3.33 L Hgb 9.8 L Hct 34.6 L MCV 103.9 D MCH 29.4 MCHC 28.3 L RDW 16.9 H Plt Count 144 MPV 11.7 H Gran % 63.1 Lymph % (Auto) 26.2 [place] % (Auto) 9.5 H Eos % (Auto) 1.0 L Baso % (Auto) 0.2 Gran # 3.14 Lymph # (Auto) 1.3 [place] # (Auto) 0.5 Eos # (Auto) 0.1 Baso # (Auto) 0.01 Sodium 150 H Potassium 4.2 Chloride 106 Carbon Dioxide 30 Anion Gap 17 BUN 68 H Creatinine 5.2 H Est GFR ( Amer) 10 Est GFR (Non-Af Amer) 8 POC Glucose (mg/dL) 161 H Random Glucose 118 H Calcium 8.1 L Total Bilirubin 0.5 AST 22 ALT 21 Alkaline Phosphatase 78 Total Protein 6.0 Albumin 3.2 Globulin 2.9 Albumin/Globulin Ratio 1.1 Procalcitonin Critical Care Progress Note - Nutrition Nutrition: Nutrition Category Date Time Status NPO Diet [DIET] Diets 11/01/17 Dinner Ordered Assessment/Plan - Assessment and Plan (Free Text) Plan: Pt seen and examined on rounds with resident, agree with note with following additions/exceptions: 77yo female with PMHx of CKD, COPD, Dementia, CVA, a/w AMS, lethargy, hypernatremia AMS, resolved, at baseline Lethargy Hypernatremia Dehydration Acute on Chronic renal failure COPD - currently afebrile, HD stable, comfortable, in NAD, lying in bed, opens eyes to name, does not follow commands - labs with hypernatremia, that is improving, Na 150 today - CXR without focal consolidation, WBC wnl - CT head without contrast negative for acute findings - will need PICC line for access Recommend: - supp o2 as needed - follow up cultures - BP control - NPO - speech swallow eval - check TSH, Ulytes - IVF, D5W @ 50cc/hr, Na improving - monitor BMP q12hr - FS control - GI ppx - DVT ppx - stable transfer to med surg - PICC line
--- NOTE | 2017-11-03 07:34 | CP.PCM.PN ---
<Ember Magaña - Last Filed: 11/03/17 15:05> Subjective - Date & Time of Evaluation Date of Evaluation: 11/03/17 Time of Evaluation: 07:34 - Subjective Subjective: Ember Magaña, PGY1, Medicine Progress Note for Dr Dowling: Patient seen and examined at bedside. No acute events overnight, pt continues to use bipap overnight. Pt more awake, alert, nodding to questions. No fever, chills, nausea, vomiting, abdominal pain, leg swelling. Complete ROS unobtainable as patient is nonverbal at baseline. Objective - Vital Signs/Intake and Output Vital Signs (last 24 hours): Temp Pulse Resp BP Pulse Ox 98.4 F 90 36 H 121/77 96 11/02/17 20:00 11/03/17 04:40 11/03/17 04:40 11/03/17 04:01 11/03/17 04:40 - Medications Medications: Current Medications Albuterol/Ipratropium (Duoneb 3 Mg/0.5 Mg (3 Ml) Ud) 3 ml IH [id number] [facility] Last Admin: 11/03/17 05:00 Dose: 3 ml Albuterol/Ipratropium (Duoneb 3 Mg/0.5 Mg (3 Ml) Ud) 3 ml IH Q2H PRN PRN Reason: Shortness of Breath Famotidine (Pepcid) 20 mg IVP DAILY [facility] Last Admin: 11/02/17 15:10 Dose: 20 mg Hydralazine HCl (Apresoline) 10 mg IVP Q6 PRN PRN Reason: Systolic Blood Pressure Dextrose (Dextrose 5% In Water 1000 Ml) 1,000 mls @ 125 mls/hr IV .Q8H [facility] Last Admin: 11/03/17 03:06 Dose: 125 mls/hr - Labs Labs: 11/02/17 05:30 11/02/17 13:05 PT 10.9 SECONDS (9.4-12.5) 11/02/17 09:40 INR 0.95 (0.93-1.08) 11/02/17 09:40 APTT 36.0 Seconds (25.1-36.5) 11/02/17 09:40 - Additional Findings Additional findings: - Constitutional Appears: Non-toxic, No Acute Distress, Older Than Stated Age - Head Exam Head Exam: ATRAUMATIC, NORMOCEPHALIC - Eye Exam Eye Exam: PERRL. absent: Conjunctival injection, Nystagmus, Scleral icterus Pupil Exam: PERRL. absent: Fixed, Irregular, Unequal - ENT Exam ENT Exam: Mucous Membranes Dry - Neck Exam Neck Exam: Full ROM - Respiratory Exam Respiratory Exam: Clear to Ausculation Bilateral, NORMAL BREATHING PATTERN. absent: Accessory Muscle Use, Rhonchi, Wheezes, Respiratory Distress - Cardiovascular Exam Cardiovascular Exam: RRR, +S1, +S2. absent: Murmur - GI/Abdominal Exam GI & Abdominal Exam: Soft, Normal Bowel Sounds. absent: Distended, Tenderness, Mass, Organomegaly, Rebound - Extremities Exam Extremities Exam: Normal Inspection. absent: Calf Tenderness, Pedal Edema - Back Exam Back Exam: NORMAL INSPECTION - Neurological Exam Neurological Exam: More awake, alert, nods to questions. - Psychiatric Exam Psychiatric exam: Normal mood and affect - Skin Skin Exam: Dry, Normal Color, Warm Assessment and Plan - Assessment and Plan (Free Text) Assessment: 77 year old female with hx of HTN, asthma, Parkinson's, recent [facility] admission for AMS/hypernatremia, presents for AMS, FTT, found to be profoundly hypernatremic, AVERY: Hypernatremia: 2/2 poor oral intake vs renal losses vs GI loss vs insensible losses - Free water deficit 4.2 L, will avoid rapid correction (6-8 mmol/day or <0.5 meq/h) - D5W @50. Cont to monitor - nephro consulted. f/u recs - Tele monitoring - Seizure/fall precautions AMS/lethargy, improvin/2 hypernatremia vs infectious etiology vs ftt - correct hypernatemia as above - CXR neg. UA neg for infection. Blood culture neg to date. Procal 0.71. urine culture neg. - no leukocytosis, afebrile - cont to monitor Hyperkalemia: -resolved. Will cont to monitor. Failure to thrive: - Dehydrated, no oral intake over several days at home. - Formal speech and swallow eval recommended puree with extra thick gravy, honey thick liquids. - Pureed diet ordered. AVERY superimposed on CKD: Likely secondary to dehydration vs ATN - Pt has hx of CKD - Nephro consulted. f/u recs - daily cmp/ cont to monitor. Thrombocytopenia: 2/2 heparin induced thrombocytopenia vs protonix side effect vs dilutional - Plt improving. previously 320s on 10/22/17. (>50% drop in plts on this admission ) - Stopped Heparin. switched to SCDs for dvt ppx - Sent HIT antibody. - Switched protonix to pepcid for gi ppx. Prophylaxis Pepcid SCDs Discussed with Dr Dowling. Ember Magaña, PGY1 <Cheyanne Dowling - Last Filed: 11/03/17 15:15> Objective - Vital Signs/Intake and Output Vital Signs (last 24 hours): Temp Pulse Resp BP Pulse Ox 98.4 F 94 H 33 H 112/70 51 L 11/02/17 20:00 11/03/17 08:41 11/03/17 08:41 11/03/17 08:00 11/03/17 08:30 Intake and Output: 11/03/17 11/03/17 06:59 18:59 Intake Total 1700 Output Total 525 Balance 1175 - Medications Medications: Current Medications Albuterol/Ipratropium (Duoneb 3 Mg/0.5 Mg (3 Ml) Ud) 3 ml IH Q2H PRN PRN Reason: Shortness of Breath Albuterol/Ipratropium (Duoneb 3 Mg/0.5 Mg (3 Ml) Ud) 3 ml IH [id number] [facility] Last Admin: 11/03/17 13:59 Dose: 3 ml Calcium Acetate (Phoslo) 667 mg PO WM [facility] Famotidine (Pepcid) 20 mg IVP DAILY [facility] Last Admin: 11/02/17 15:10 Dose: 20 mg Hydralazine HCl (Apresoline) 10 mg IVP Q6 PRN PRN Reason: Systolic Blood Pressure Dextrose (Dextrose 5% In Water 1000 Ml) 1,000 mls @ 50 mls/hr IV .Q20H [facility] - Labs Labs: 11/03/17 08:40 11/03/17 08:40 PT 10.9 SECONDS (9.4-12.5) 11/02/17 09:40 INR 0.95 (0.93-1.08) 11/02/17 09:40 APTT 36.0 Seconds (25.1-36.5) 11/02/17 09:40 Attending/Attestation - Attestation I have personally seen and examined this patient.: Yes I have fully participated in the care of the patient.: Yes I have reviewed all pertinent clinical information, including history, physical exam and plan: Yes Notes (Text): 11/03/17 15:13 77 year old female with past medical history of hypertension, asthma/COPD, Parkinson's, and CKD who presented with AMS; found to have severe hypernatremia , acute on chronic kidney disease, and CO2 retention. Nephrology is following for her acute on chronic renal disease and hypernatremia which is improving. Continue with bipap at night with serial ABG monitoring. Her mental status has improved close to baseline. SpSw follow up is requested. Thrombocytopenia from yesterday has improved. Cheyanne Dowling MD Hospitalist.
[2017-11-03 08:55] LABS: BASO # 0.01 K/mm3 (0.0-2.0); BASO % 0.2 % (0.0-3.0); EOS # 0.1 (0.0-0.7); GRAN # 3.14 (1.4-6.5); GRAN % 63.1 % (50.0-68.0); HEMOGLOBIN 9.8 g/dL (12.0-16.0); LYMPH # 1.3 (1.2-3.4); LYMPH % 26.2 % (22.0-35.0); MEAN CELL VOLUME 103.9 fl (80.0-105.0); MEAN CORPUSCULAR HEMOGLOBIN 29.4 pg (25.0-35.0); MEAN CORPUSCULAR HGB CONC 28.3 g/dl (31.0-37.0); MEAN PLATELET VOLUME 11.7 fl (7.0-11.0); MONO # 0.5 (0.1-0.6); MONO % 9.5 % (1.0-6.0); RBC 3.33 10^6/uL (3.5-6.1); RED CELL DISTRIBUTION WIDTH 16.9 % (11.5-14.5)
[2017-11-03 09:47] LABS: ALB/GLOB RATIO 1.1 (1.1-1.8); ALBUMIN 3.2 g/dL (3.0-4.8); CALCIUM 8.1 mg/dL (8.4-10.5)
--- NOTE | 2017-11-03 14:46 | PN ---
DATE: ADDENDUM MICROBIOLOGY: All cultures are negative at 24 hours. IMAGING: Renal ultrasound done on 10/08/2017 showed echogenic kidneys suggestive of chronic medical renal disease. ASSESSMENT: 1. Acute renal failure superimposed on chronic kidney disease stage 4/5. I will obtain a 24-hour urine creatinine clearance and protein. 2. Status post severe hypernatremia. This is secondary to volume depletion and dehydration. 3. Status post hyperkalemia. This has resolved. 4. Status post hypercapnic respiratory acidosis. 5. History of dementia. 6. History of chronic obstructive pulmonary disease. 7. Past history of cerebrovascular accident. PLAN: 1. Unfortunately, unable to discuss with the patient her situation. The patient apparently is a resident of [place]. It is unclear to me whether the patient has had nephrology care back in her home state. She likely is rapidly approaching end-stage renal disease. I will obtain a 24-hour urine for creatinine clearance and protein. I will place the patient back on binder therapy. 2. We will avoid all nephrotoxic agents. 3. Agree with transfer to Med-Surg. 4. Restart blood pressure medication when the patient has slight elevation of blood pressure readings. Presently, her blood pressure is in the low normal range. 5. Encourage oral p.o. fluid hydration and as necessary continue IV fluid hypotonic fluid administration. Abdifatah Arteaga MD
--- NOTE | 2017-11-03 15:08 | RAD ---
HISTORY: PICC LINE COMPARISON: No prior. FINDINGS: LUNGS: Evaluation limited due to steep oblique positioning of patient. Patchy opacity right lung base may reflect infiltrate or atelectasis. . PLEURA: No significant pleural effusion identified, no pneumothorax apparent. CARDIOVASCULAR: Normal heart size. Left PICC catheter terminates the region of the superior vena cava. OSSEOUS STRUCTURES: No significant abnormalities. VISUALIZED UPPER ABDOMEN: Normal. OTHER FINDINGS: None. IMPRESSION: New left PICC catheter terminates in the region of the superior vena cava. Patchy opacity at right base, infiltrate versus atelectasis. Limited examination.
[2017-11-03] MEDS ORDERED: Cefepime 1gm in NS 100ml 1 GM/100 ML BAG IVPB SCH (16:30)
[2017-11-03 16:40] LABS: VENOUS BLOOD GAS BASE EXCESS 10.9 mmol/L (0.0-2.0); VENOUS BLOOD GAS PO2 32 mm/Hg (30-55); VENOUS BLOOD PH 7.41 (7.32-7.43)
[2017-11-03] MEDS ORDERED: Linezolid 600 mg in D5W 300 ml 600 MG/300 ML BAG IVPB SCH (22:00)
[2017-11-04] MEDS: Albuterol-Ipratrop 3 mg / 0.5 (3 ml) UD IH SCH ×4 (01:15→20:52)
[2017-11-04 07:17] LABS: BASO # 0.01 K/mm3 (0.0-2.0); BASO % 0.2 % (0.0-3.0); EOS # 0.1 (0.0-0.7); EOS % 1.7 % (1.5-5.0); GRAN # 4.77 (1.4-6.5); GRAN % 78.9 % (50.0-68.0); HEMOGLOBIN 8.6 g/dL (12.0-16.0); LYMPH # 0.9 (1.2-3.4); LYMPH % 14.7 % (22.0-35.0); MEAN CORPUSCULAR HEMOGLOBIN 28.7 pg (25.0-35.0); MEAN CORPUSCULAR HGB CONC 27.8 g/dl (31.0-37.0); MEAN PLATELET VOLUME 11.5 fl (7.0-11.0); MONO # 0.3 (0.1-0.6); MONO % 4.5 % (1.0-6.0); RED CELL DISTRIBUTION WIDTH 16.7 % (11.5-14.5)
[2017-11-04 07:24] LABS: INR 0.96 (0.93-1.08); PARTIAL THROMBOPLASTIN TIME 30.8 Seconds (25.1-36.5)
[2017-11-04 07:37] LABS: ALBUMIN 2.9 g/dL (3.0-4.8); CALCIUM 7.7 mg/dL (8.4-10.5)
[2017-11-04 08:03] LABS: MAGNESIUM 2.1 mg/dL (1.7-2.2)
--- NOTE | 2017-11-04 08:58 | PN ---
DATE: 11/03/2017 SUBJECTIVE: The patient is currently seen in CCU bed 6, but she has been downgraded to Med-Surg. She is awaiting a bed. She appears to be in no acute distress. She does not communicate with me. MEDICATIONS: Medication list reviewed. The patient is currently on IV hydralazine, D5W 50 mL an hour which temporarily has been discontinued, DuoNeb and Pepcid. OBJECTIVE: INTAKE/OUTPUT: Intake 3200, output 700. VITAL SIGNS: Blood pressure is 112/70. Pulse is 94, respiratory rate is 33, temperature is 98.4. HEENT: Shows her to be normocephalic, atraumatic. Conjunctivae are pale. Sclerae nonicteric. NECK: Supple. No neck vein distention. CHEST: Clear to auscultation and percussion. No rales. No rhonchi or wheezing. CARDIOVASCULAR: Shows a regular rate and rhythm without audible murmurs, rubs or gallops. ABDOMEN: Soft. Nondistended, nontender. Bowel sounds are normal. No rebound. No guarding. Extremities: Show no lower extremity cyanosis, clubbing or edema. LABORATORY DATA AND IMAGING: CBC: White blood cell count today 5.0, hemoglobin 9.8 with a platelet count of 144,000. Chemistries show a sodium today of 150, down from a high of 172. Potassium 4.2, normal, down from a high of 5.7. Chloride is 106 with a CO2 of 30. BUN is 68, within her baseline range. Creatinine is 5.2, perhaps a new baseline. Previously, her baseline creatinine had been in the low to mid 3 range. Calcium is 8.1 with an albumin level of 3.4. Last phosphorus level was 4.9. Last magnesium level was 2.3. Urines were unremarkable. Abdifatah Arteaga MD
[2017-11-04] MEDS: Cefepime 1gm in NS 100ml 1 GM/100 ML BAG IVPB SCH (13:09)
[2017-11-04] MEDS ORDERED: Dextrose 5%/0.45% NS 1,000 ML IV SCH ×2 (13:30)
--- NOTE | 2017-11-04 13:36 | CP.PCM.PN ---
<Ember Magaña - Last Filed: 11/04/17 13:51> Subjective - Date & Time of Evaluation Date of Evaluation: 11/04/17 Time of Evaluation: 13:31 - Subjective Subjective: Ember Magaña, PGY1, Medicine Progress Note for Dr Dowling: Patient seen and examined at bedside. Pt febrile yesterday afternoon, 101.5F, CXR showed right lung base infiltrate vs atelectasis. Pt hypotensive overnight, BP 70/41. Pt awake, arousable, tolerating breakfast well as per nursing staff. Complete ROS unobtainable as patient is nonverbal at baseline. Objective - Vital Signs/Intake and Output Vital Signs (last 24 hours): Temp Pulse Resp BP Pulse Ox 99.0 F 76 21 92/61 L 100 11/04/17 08:10 11/04/17 12:10 11/04/17 12:10 11/04/17 12:00 11/04/17 12:10 Intake and Output: 11/04/17 11/04/17 06:59 18:59 Intake Total 900 Output Total 275 Balance 625 - Medications Medications: Current Medications Acetaminophen (Tylenol 325mg Tab) 650 mg PO Q4H PRN PRN Reason: Fever >100.4 F Last Admin: 11/03/17 16:31 Dose: 650 mg Albuterol/Ipratropium (Duoneb 3 Mg/0.5 Mg (3 Ml) Ud) 3 ml IH Q2H PRN PRN Reason: Shortness of Breath Albuterol/Ipratropium (Duoneb 3 Mg/0.5 Mg (3 Ml) Ud) 3 ml IH [id number] [facility] Last Admin: 11/04/17 08:21 Dose: 3 ml Calcium Acetate (Phoslo) 667 mg PO WM [facility] Last Admin: 11/04/17 10:17 Dose: 667 mg Famotidine (Pepcid) 20 mg IVP DAILY [facility] Last Admin: 11/04/17 10:17 Dose: 20 mg Hydralazine HCl (Apresoline) 10 mg IVP Q6 PRN PRN Reason: Systolic Blood Pressure Cefepime HCl (Maxipime 1gm) 1 gm in 100 mls @ 100 mls/hr IVPB Q24H [facility] PRN Reason: Protocol Stop: 11/13/17 13:16 Dextrose/Sodium Chloride (Dextrose 5%/0.45% Ns 1000 Ml) 1,000 mls @ 100 mls/hr IV .Q10H [facility] Dextrose/Sodium Chloride (Dextrose 5%/0.45% Ns 1000 Ml) 500 mls @ 500 mls/hr IV .Q1H [facility] - Labs Labs: 11/04/17 05:30 11/04/17 05:30 PT 11.0 SECONDS (9.4-12.5) 11/04/17 05:30 INR 0.96 (0.93-1.08) 11/04/17 05:30 APTT 30.8 Seconds (25.1-36.5) 11/04/17 05:30 - Additional Findings Additional findings: - Constitutional Appears: Non-toxic, No Acute Distress, Older Than Stated Age - Head Exam Head Exam: ATRAUMATIC, NORMOCEPHALIC - Eye Exam Eye Exam: PERRL. absent: Conjunctival injection, Nystagmus, Scleral icterus Pupil Exam: PERRL. absent: Fixed, Irregular, Unequal - ENT Exam ENT Exam: Mucous Membranes Dry - Neck Exam Neck Exam: Full ROM - Respiratory Exam Respiratory Exam: Clear to Ausculation Bilateral, NORMAL BREATHING PATTERN. absent: Accessory Muscle Use, Rhonchi, Wheezes, Respiratory Distress - Cardiovascular Exam Cardiovascular Exam: RRR, +S1, +S2. absent: Murmur - GI/Abdominal Exam GI & Abdominal Exam: Soft, Normal Bowel Sounds. absent: Distended, Tenderness, Mass, Organomegaly, Rebound - Extremities Exam Extremities Exam: Normal Inspection. absent: Calf Tenderness, Pedal Edema - Back Exam Back Exam: NORMAL INSPECTION - Neurological Exam Neurological Exam: More awake, alert, nods to questions. - Psychiatric Exam Psychiatric exam: Normal mood and affect - Skin Skin Exam: Dry, Normal Color, Warm Assessment and Plan - Assessment and Plan (Free Text) Assessment: 77 year old female with hx of HTN, asthma, Parkinson's, recent [facility] admission for AMS/hypernatremia, presents for AMS, FTT, found to be profoundly hypernatremic, AVERY. Pt hypotensive overnight, pt receiving D51/2 NS @ 50 cc/h. Echocardiogram 09/2017 showed EF 59%, aortic sclerosis. Will give 500 ml IVF bolus and then c/w IVF at 100cc/h: Hospital acquired pneumonia: - RLL shows patchy opacity at right lung base - infiltrate vs atelectasis - Started Cefepime and Zyvox - Procal 3.42 - F/u urine/blood cultures - ID consulted. F/u recs. Hypernatremia, resolved: 2/2 poor oral intake vs renal losses vs GI loss vs insensible losses - Free water deficit 4.2 L, will avoid rapid correction (6-8 mmol/day or <0.5 meq/h) - Increased D5 1/2NS @ 100. Will discuss with Nephro. Cont to monitor - nephro consulted. appreciate recs. - Tele monitoring - Seizure/fall precautions AMS/lethargy, improvin/2 hypernatremia vs infectious etiology vs ftt - correct hypernatemia as above - CXR neg. UA neg for infection. Blood cultures neg to date. Procal 0.71. urine culture neg. - cont to monitor Hyperkalemia: -resolved. Will cont to monitor. Failure to thrive: - Dehydrated, no oral intake over several days at home. - Formal speech and swallow eval recommended puree with extra thick gravy, honey thick liquids. - Pureed diet/honey thick liquids. AVERY superimposed on CKD: Likely secondary to dehydration vs ATN - Pt has hx of CKD - Nephro consulted. f/u recs - daily cmp/ cont to monitor. Thrombocytopenia: 2/2 heparin induced thrombocytopenia vs protonix side effect vs dilutional - Plt improving. previously 320s on 10/22/17. (>50% drop in plts on this admission ) - Stopped Heparin. switched to SCDs for dvt ppx - Sent HIT antibody. - Switched protonix to pepcid for gi ppx. Prophylaxis Pepcid SCDs Discussed with Dr Dowling. Ember Magaña, PGY1 <Cheyanne Dowling - Last Filed: 11/04/17 15:23> Objective - Vital Signs/Intake and Output Vital Signs (last 24 hours): Temp Pulse Resp BP Pulse Ox 99.0 F 76 21 92/61 L 100 11/04/17 08:10 11/04/17 12:10 11/04/17 12:10 11/04/17 12:00 11/04/17 12:10 Intake and Output: 11/04/17 11/04/17 06:59 18:59 Intake Total 900 Output Total 275 Balance 625 - Medications Medications: Current Medications Acetaminophen (Tylenol 325mg Tab) 650 mg PO Q4H PRN PRN Reason: Fever >100.4 F Last Admin: 11/03/17 16:31 Dose: 650 mg Albuterol/Ipratropium (Duoneb 3 Mg/0.5 Mg (3 Ml) Ud) 3 ml IH Q2H PRN PRN Reason: Shortness of Breath Albuterol/Ipratropium (Duoneb 3 Mg/0.5 Mg (3 Ml) Ud) 3 ml IH [id number] [facility] Last Admin: 11/04/17 13:49 Dose: 3 ml Calcium Acetate (Phoslo) 667 mg PO WM [facility] Last Admin: 11/04/17 13:07 Dose: 667 mg Famotidine (Pepcid) 20 mg IVP DAILY [facility] Last Admin: 11/04/17 10:17 Dose: 20 mg Hydralazine HCl (Apresoline) 10 mg IVP Q6 PRN PRN Reason: Systolic Blood Pressure Cefepime HCl (Maxipime 1gm) 1 gm in 100 mls @ 100 mls/hr IVPB Q24H [facility] PRN Reason: Protocol Stop: 11/13/17 13:16 Last Admin: 11/04/17 13:09 Dose: 100 mls/hr Dextrose (Dextrose 5% In Water 1000 Ml) 1,000 mls @ 100 mls/hr IV .Q10H [facility] - Labs Labs: 11/04/17 05:30 11/04/17 05:30 PT 11.0 SECONDS (9.4-12.5) 11/04/17 05:30 INR 0.96 (0.93-1.08) 11/04/17 05:30 APTT 30.8 Seconds (25.1-36.5) 11/04/17 05:30 Attending/Attestation - Attestation I have personally seen and examined this patient.: Yes I have fully participated in the care of the patient.: Yes I have reviewed all pertinent clinical information, including history, physical exam and plan: Yes Notes (Text): 11/04/17 15:14 77 year old female with past medical history of hypertension, asthma/COPD, Parkinson's, and CKD who presented with AMS; found to have severe hypernatremia , acute on chronic kidney disease, and CO2 retention. Nephrology is following for her acute on chronic renal disease and hypernatremia. Continue with bipap at night with serial ABG monitoring. Her mental status has improved close to baseline. Patient had fever yesterday found to have RLL pneumonia. ID evaluation is requested. Continue with iv antibiotics. Blood pressure also has been borderline low for which she was bolused and started on maintainence fluids. Will monitor closely. Cheyanne Dowling MD Hospitalist.
--- NOTE | 2017-11-04 14:51 | CP.PCM.CON ---
History of Present Illness - History of Present Illness History of Present Illness: Palliative consult requested by Dr Cathie Dowling Reason: Goals of care/hospice discussion 77 year old female with history of dementia, COPD, HTN, CKD, CVA of who was sent from [facility] with increased lethargy, decreased PO intake. She was recently discharged from [facility] acute care after being treated for hypercapnea/respiratory failure/s/p intubation. Ct of head showed extensive atrophy and chronic microvascular disease. PMHx: CVA,HTN, CKD,COPD,dementia. Social History: Non smoker, no alcohol or drug use. Lives in [place] with her and daughter. Advance Care Planning: She does not have an Advanced Directive. Family History Non contributory. Review of Systems: per HPI, patient is altered unable to converse Past Patient History - Past Social History Smoking Status: Former Smoker - CARDIAC Hx Pacemaker: No - PULMONARY Hx Asthma: Yes - NEUROLOGICAL HX Cerebrovascular Accident: (questionable cva in [place] 2006) Hx Parkinson's Disease: Yes (questionable) Other/Comment: uncontrollable twitching, jittery,short term memory loss, forgetful since 2010 worsening 2013, difficulty walking - HEENT Hx Cataracts: Yes (left eye) - HEMATOLOGICAL/ONCOLOGICAL Hx Cancer: No - INTEGUMENTARY Other/Comment: dry skin ble - MUSCULOSKELETAL/RHEUMATOLOGICAL Hx Falls: Yes (recent frequent) - GASTROINTESTINAL Hx Gastroesophageal Reflux: Yes - PSYCHIATRIC Hx Substance Use: No - SURGICAL HISTORY Hx Mastectomy: No Meds Allergies/Adverse Reactions: Allergies Allergy/AdvReac Type Severity Reaction Status Date / Time No Known Allergies Allergy Verified 11/01/17 14:45 - Medications Medications: Current Medications Acetaminophen (Tylenol 325mg Tab) 650 mg PO Q4H PRN PRN Reason: Fever >100.4 F Last Admin: 11/03/17 16:31 Dose: 650 mg Albuterol/Ipratropium (Duoneb 3 Mg/0.5 Mg (3 Ml) Ud) 3 ml IH Q2H PRN PRN Reason: Shortness of Breath Albuterol/Ipratropium (Duoneb 3 Mg/0.5 Mg (3 Ml) Ud) 3 ml IH [id number] DAVID Last Admin: 11/04/17 13:49 Dose: 3 ml Calcium Acetate (Phoslo) 667 mg PO WM DAVID Last Admin: 11/04/17 13:07 Dose: 667 mg Famotidine (Pepcid) 20 mg IVP DAILY [facility] Last Admin: 11/04/17 10:17 Dose: 20 mg Hydralazine HCl (Apresoline) 10 mg IVP Q6 PRN PRN Reason: Systolic Blood Pressure Cefepime HCl (Maxipime 1gm) 1 gm in 100 mls @ 100 mls/hr IVPB Q24H DAVID PRN Reason: Protocol Stop: 11/13/17 13:16 Last Admin: 11/04/17 13:09 Dose: 100 mls/hr Dextrose (Dextrose 5% In Water 1000 Ml) 1,000 mls @ 100 mls/hr IV .Q10H [facility] Physical Exam - Constitutional Appears: Cachectic, Chronically Ill - Head Exam Head Exam: NORMAL INSPECTION - Eye Exam Eye Exam: Normal appearance, PERRL - ENT Exam ENT Exam: Mucous Membranes Moist, Normal Oropharynx - Neck Exam Neck exam: Positive for: Normal Inspection - Respiratory Exam Respiratory Exam: Decreased Breath Sounds, NORMAL BREATHING PATTERN - Cardiovascular Exam Cardiovascular Exam: REGULAR RHYTHM, +S1, +S2 - GI/Abdominal Exam GI & Abdominal Exam: Hypoactive Bowel Sounds, Soft - Back Exam Back exam: NORMAL INSPECTION - Neurological Exam Neurological exam: Altered - Skin Skin Exam: Dry - Additional Findings Additional findings: Performance scale rating 30 % Results - Vital Signs Recent Vital Signs: Last Vital Signs Temp 99.0 F 11/04/17 08:10 Pulse 76 11/04/17 12:10 Resp 21 11/04/17 12:10 BP 92/61 L 11/04/17 12:00 Pulse Ox 100 11/04/17 12:10 - Labs Result Diagrams: 11/04/17 05:30 11/04/17 05:30 Labs: Laboratory Results - last 24 hr 11/03/17 11/03/17 11/03/17 16:30 16:30 16:37 WBC RBC Hgb Hct MCV MCH MCHC RDW Plt Count MPV Gran % Lymph % (Auto) [place] % (Auto) Eos % (Auto) Baso % (Auto) Gran # Lymph # (Auto) [place] # (Auto) Eos # (Auto) Baso # (Auto) PT INR APTT pO2 32 VBG pH 7.41 VBG pCO2 60.0 VBG HCO3 38.0 H VBG Total CO2 39.8 H VBG O2 Sat (Calc) 71.8 H VBG Base Excess 10.9 H VBG Potassium 4.4 Sodium 147.0 Chloride 111.0 H Glucose 105 Lactate 1.4 FiO2 21.0 Potassium Carbon Dioxide Anion Gap BUN Creatinine Est GFR ( Amer) Est GFR (Non-Af Amer) POC Glucose (mg/dL) 101 Random Glucose Calcium Phosphorus Magnesium Total Bilirubin AST ALT Alkaline Phosphatase Total Protein Albumin Globulin Albumin/Globulin Ratio Procalcitonin 3.42 H Venous Blood Potassium 4.4 11/03/17 11/04/17 11/04/17 22:03 05:30 05:30 WBC 6.0 RBC 3.00 L Hgb 8.6 L Hct 30.9 L MCV 103.0 MCH 28.7 MCHC 27.8 L RDW 16.7 H Plt Count 149 MPV 11.5 H Gran % 78.9 H Lymph % (Auto) 14.7 L [place] % (Auto) 4.5 Eos % (Auto) 1.7 Baso % (Auto) 0.2 Gran # 4.77 Lymph # (Auto) 0.9 L [place] # (Auto) 0.3 Eos # (Auto) 0.1 Baso # (Auto) 0.01 PT 11.0 INR 0.96 APTT 30.8 pO2 VBG pH VBG pCO2 VBG HCO3 VBG Total CO2 VBG O2 Sat (Calc) VBG Base Excess VBG Potassium Sodium Chloride Glucose Lactate FiO2 Potassium Carbon Dioxide Anion Gap BUN Creatinine Est GFR ( Amer) Est GFR (Non-Af Amer) POC Glucose (mg/dL) 166 H Random Glucose Calcium Phosphorus Magnesium Total Bilirubin AST ALT Alkaline Phosphatase Total Protein Albumin Globulin Albumin/Globulin Ratio Procalcitonin Venous Blood Potassium 11/04/17 11/04/17 11/04/17 05:30 05:30 07:27 WBC RBC Hgb Hct MCV MCH MCHC RDW Plt Count MPV Gran % Lymph % (Auto) [place] % (Auto) Eos % (Auto) Baso % (Auto) Gran # Lymph # (Auto) [place] # (Auto) Eos # (Auto) Baso # (Auto) PT INR APTT pO2 VBG pH VBG pCO2 VBG HCO3 VBG Total CO2 VBG O2 Sat (Calc) VBG Base Excess VBG Potassium Sodium 148 Chloride 104 Glucose Lactate FiO2 Potassium 4.0 Carbon Dioxide 35 H Anion Gap 13 BUN 72 H Creatinine 5.4 H Est GFR ( Amer) 9 Est GFR (Non-Af Amer) 8 POC Glucose (mg/dL) 135 H Random Glucose 111 H Calcium 7.7 L Phosphorus 5.9 H Magnesium 2.1 Total Bilirubin 0.4 AST 35 ALT 31 Alkaline Phosphatase 76 Total Protein 5.7 L Albumin 2.9 L Globulin 2.8 Albumin/Globulin Ratio 1.0 L Procalcitonin Venous Blood Potassium Assessment & Plan - Assessment and Plan (Free Text) Assessment: 77 year old female with sit of HTN, HLD, COPD, CKD and dementia who is admitted with AVERY on CKD, severe hypernatremia, dehydration, hyperkalemia, dyaphagia and poor functional status. I spoke with patients via phone, he intends to visit this evening. prefers that I speak with his daughter who he relies upon for medical decision making Carmella VEE and I spoke with daughter Parul via phone. I explained mothers medical situation and poor prognosis. Daughter states she understands but when verbalizing concerns it is clear that she does not grasp the gravity of mothers situation. I explained that mother kidneys were failing and that she was not a candidate for dialysis. Daughter offered option for hospice care. Daughter states that she wants to take her mother home to [place]. Daughter intends to be primary trauma program manager for her mother. Daughter feels that she can restore her mothers health and is not ready for hospice at this time. Psychosocial support provided. Will continue to follow. Time spent with family in goals of care discussion,30 minutes Plan: Will continue to follow and provide palliative support in establishing goals of care
[2017-11-04] MEDS ORDERED: Cefepime 0.5 GM in Sodium Chloride 0.9% 100 ML IVPB SCH (16:30)
[2017-11-04 17:02] LABS: URINE 24 HOUR TOTAL PROTEIN 455 mg/24HR (42-225); URINE COLLECTION TIME 24 HOURS; URINE CREATININE 61.2 mg/dL; URINE TOTAL VOLUME 650 mL (800-1400)
--- NOTE | 2017-11-04 17:12 | PN ---
DATE: 11/04/2017 SUBJECTIVE: Patient is seen in the ICU. She is sitting in bed. She is awake. She is lethargic, but she is following some commands. She denies any pain. She denies any shortness of breath. PHYSICAL EXAMINATION GENERAL: Elderly lady lying in bed in the ICU. VITAL SIGNS: Blood pressure 92/61, heart rate 78, respiratory rate 24, temperature 99, T-max is 101.5. HEENT: Normocephalic, atraumatic, positive pallor. NECK: Supple, no JVD. LUNGS: Bilateral equal air entry, bilateral equal expansion, no rales. CARDIAC: S1 and S2, regular rate and rhythm, no murmur, no rub. ABDOMEN: Soft, nondistended, nontender, bowel sounds present. EXTREMITIES: No lower extremity edema. INTAKE AND OUTPUT: 1500/720. LABORATORY DATA: WBC 6, hemoglobin 8.6, hematocrit 30.9, platelets 149. Sodium 148, potassium 4.0, chloride 104, CO2 35, BUN 72, creatinine 5.4, glucose 111, calcium 7.7, phosphorus 5.9, magnesium 2.1, albumin 2.9. Cultures, no growth. CURRENT MEDICATIONS: List reviewed. ASSESSMENT: 1. Acute kidney injury superimposed on chronic kidney disease, stage IV/V. 2. Hypernatremia, resolved. 3. Hyperkalemia, resolved. 4. Hypercapnic respiratory acidosis. 5. Advanced dementia. 6. Chronic obstructive pulmonary disease. 7. Malnutrition. 8. History of cerebrovascular accident. PLAN: 1. Follow up 24-hour urine. 2. Avoid nephrotoxins. 3. Push p.o. intake. 4. Not a candidate for renal replacement therapy. 5. Palliative care consult. 6. More than 35 minutes spent in the care coordination of this elderly demented lady. Juli Montelongo MD
--- NOTE | 2017-11-04 22:19 | CON ---
DATE: 11/04/2017 LOCATION: The patient is seen in the CCU early this morning at 129, bed 6. CHIEF COMPLAINT: Fever x1 day. HISTORY OF PRESENT ILLNESS: This is a 77-year-old female with history of dementia, chronic obstructive lung disease, cerebrovascular accident, hypertension, asthma, who was admitted on 11/01/2017 with a diagnosis of dehydration. The patient had a temperature yesterday and then received consultation. The patient on admission did not have a temperature. The patient had a recent hospitalization in [facility]. REVIEW OF SYSTEMS: Reveals the patient did have fever. There is mild shortness of breath. There is cough. No chest pain and no abdominal pain, diarrhea or constipation. No bright red blood per rectum. No melena. PAST MEDICAL HISTORY: Significant for dementia, chronic obstructive lung disease, cerebrovascular accident, hypertension and asthma. PAST SURGICAL HISTORY: Noncontributory. ALLERGIES: THE PATIENT HAS NO KNOWN ALLERGIES. MEDICATIONS: As an outpatient revealed the patient to be on prednisone 5 mg and hydralazine, Norvasc, vitamins, metoprolol. PHYSICAL EXAMINATION: GENERAL: The patient is in bed. VITAL SIGNS: Temperature of 101, blood pressure is 92/60, respiratory rate of 24. The patient is on BiPAP and heart rate of 78. HEENT: Examination of HEENT is unremarkable. NECK: Supple. LUNGS: Have decreased breath sounds. HEART: Normal S1 and S2. ABDOMEN: Soft, nontender. No organomegaly. No rebound. No guarding. No masses. LABORATORY DATA: Laboratory examination reveals a white count of 6000, hemoglobin of 8, platelets of 149. Chemistry reveals the patient's creatinine is 5.4, it was upon discharge. On the last admission, it was 3.8 and 4.1. The patient's procalcitonin is elevated at 3.42 and on the admission it was 0.7, yesterday it was 3.2. Urinalysis reveals to be unremarkable from admission. Chest x-ray reveals a right base finding. Blood cultures are negative. Urine cultures are negative. MRSA screen is negative. ASSESSMENT AND PLAN: This is a 77-year-old female with dementia, chronic obstructive pulmonary disease, cerebrovascular accident, hypertension and asthma with severe sepsis with healthcare-associated pneumonia with acute kidney injury on top of chronic renal injury. Treat the patient with cefepime 1 g IV q. 24 hours. We will check on the final culture results. Repeat cultures are reported. The initial cultures from 11/01/2017 are negative and repeat cultures are pending. We will also send another urinalysis and we will follow closely with you. Vineet Ford MD
[2017-11-05] MEDS: Albuterol-Ipratrop 3 mg / 0.5 (3 ml) UD IH SCH ×6 (02:08→20:21)
[2017-11-05 07:18] LABS: EOS # 0.2 (0.0-0.7); EOS % 3.3 % (1.5-5.0); GRAN # 4.66 (1.4-6.5); GRAN % 75.8 % (50.0-68.0); HEMOGLOBIN 9.1 g/dL (12.0-16.0); LYMPH # 0.9 (1.2-3.4); MEAN CELL VOLUME 101.6 fl (80.0-105.0); MEAN CORPUSCULAR HEMOGLOBIN 29.1 pg (25.0-35.0); MEAN CORPUSCULAR HGB CONC 28.6 g/dl (31.0-37.0); MEAN PLATELET VOLUME 10.8 fl (7.0-11.0); MONO # 0.4 (0.1-0.6); MONO % 5.9 % (1.0-6.0); RBC 3.13 10^6/uL (3.5-6.1); RED CELL DISTRIBUTION WIDTH 16.1 % (11.5-14.5); WHITE BLOOD COUNT 6.1 10^3/ul (4.5-11.0)
[2017-11-05 07:32] LABS: INR 0.89 (0.93-1.08); PARTIAL THROMBOPLASTIN TIME 31.7 Seconds (25.1-36.5); PROTHROMBIN TIME 10.2 SECONDS (9.4-12.5)
[2017-11-05 07:47] LABS: ALB/GLOB RATIO 0.9 (1.1-1.8); ALBUMIN 2.8 g/dL (3.0-4.8); CALCIUM 7.7 mg/dL (8.4-10.5)
[2017-11-05] MEDS ORDERED: Linezolid 600 mg in D5W 300 ml 600 MG/300 ML BAG IVPB SCH (10:00)
[2017-11-05 10:44] LABS: URINE BILIRUBIN NEGATIVE (NEGATIVE); URINE BLOOD MODERATE (NEGATIVE); URINE GLUCOSE (UA) NEGATIVE (NEGATIVE); URINE LEUKOCYTE ESTERASE SMALL Leu/uL (NEGATIVE); URINE NITRATE NEGATIVE (NEGATIVE); URINE PROTEIN TRACE mg/dL (<30 mg/dL); URINE UROBILINOGEN 0.2 E.U./dL (<1 E.U./dL)
[2017-11-05 10:46] LABS: URINE APPEARANCE SL CLOUDY (CLEAR); URINE COLOR STRAW (YELLOW)
[2017-11-05 11:05] LABS: URINE BACTERIA FEW (NEG); URINE EPITHELIAL CELLS 0 - 2 /hpf (0-5); URINE RBC 0 - 2 /hpf (0-2)
[2017-11-05] MEDS: Cefepime 1gm in NS 100ml 1 GM/100 ML BAG IVPB SCH (12:15)
--- NOTE | 2017-11-05 12:53 | CP.PCM.PN ---
<Ember Magaña - Last Filed: 11/05/17 13:57> Subjective - Date & Time of Evaluation Date of Evaluation: 11/05/17 Time of Evaluation: 12:48 - Subjective Subjective: Ember Magaña, PGY1, Medicine Progress Note for Dr Dowling: Patient seen and examined at bedside. No acute events overnight. Denies fever, chills, n/v/abdominal pain. Pt awake, arousable, nodding to questions, nonverbal at baseline. Objective - Vital Signs/Intake and Output Vital Signs (last 24 hours): Temp Pulse Resp BP Pulse Ox 98.1 F 68 21 126/71 100 11/05/17 05:00 11/05/17 12:01 11/05/17 12:01 11/05/17 12:01 11/05/17 12:01 Intake and Output: 11/05/17 11/05/17 06:59 18:59 Intake Total 1200 Output Total 900 Balance 300 - Medications Medications: Current Medications Acetaminophen (Tylenol 325mg Tab) 650 mg PO Q4H PRN PRN Reason: Fever >100.4 F Last Admin: 11/03/17 16:31 Dose: 650 mg Albuterol/Ipratropium (Duoneb 3 Mg/0.5 Mg (3 Ml) Ud) 3 ml IH Q2H PRN PRN Reason: Shortness of Breath Albuterol/Ipratropium (Duoneb 3 Mg/0.5 Mg (3 Ml) Ud) 3 ml IH Q4H DAVID Calcium Acetate (Phoslo) 667 mg PO [facility] Last Admin: 11/05/17 11:48 Dose: 667 mg Doxycycline Hyclate (Doryx) 100 mg PO Q12 DAVID PRN Reason: Protocol Last Admin: 11/05/17 11:48 Dose: 100 mg Famotidine (Pepcid) 20 mg PO DAILY DAVID Hydralazine HCl (Apresoline) 10 mg IVP Q6 PRN PRN Reason: Systolic Blood Pressure Cefepime HCl (Maxipime 1gm) 1 gm in 100 mls @ 100 mls/hr IVPB Q24H DAVID PRN Reason: Protocol Stop: 11/13/17 13:16 Last Admin: 11/04/17 13:09 Dose: 100 mls/hr Dextrose (Dextrose 5% In Water 1000 Ml) 1,000 mls @ 100 mls/hr IV .Q10H DAVID Last Admin: 11/05/17 09:00 Dose: 100 mls/hr - Labs Labs: 11/05/17 06:00 11/05/17 06:00 PT 10.2 SECONDS (9.4-12.5) 11/05/17 06:00 INR 0.89 (0.93-1.08) L 11/05/17 06:00 APTT 31.7 Seconds (25.1-36.5) 11/05/17 06:00 - Additional Findings Additional findings: - Constitutional Appears: Non-toxic, No Acute Distress, Older Than Stated Age - Head Exam Head Exam: ATRAUMATIC, NORMOCEPHALIC - Eye Exam Eye Exam: PERRL. absent: Conjunctival injection, Nystagmus, Scleral icterus Pupil Exam: PERRL. absent: Fixed, Irregular, Unequal - ENT Exam ENT Exam: Mucous Membranes Moist - Neck Exam Neck Exam: Full ROM - Respiratory Exam Respiratory Exam: Clear to Ausculation Bilateral, NORMAL BREATHING PATTERN. absent: Accessory Muscle Use, Rhonchi, Wheezes, Respiratory Distress - Cardiovascular Exam Cardiovascular Exam: RRR, +S1, +S2. absent: Murmur - GI/Abdominal Exam GI & Abdominal Exam: Soft, Normal Bowel Sounds. absent: Distended, Tenderness, Mass, Organomegaly, Rebound - Extremities Exam Extremities Exam: Normal Inspection. absent: Calf Tenderness, Pedal Edema - Back Exam Back Exam: NORMAL INSPECTION - Neurological Exam Neurological Exam: More awake, alert, nods to questions. - Psychiatric Exam Psychiatric exam: Normal mood and affect - Skin Skin Exam: Dry, Normal Color, Warm Assessment and Plan - Assessment and Plan (Free Text) Assessment: 77 year old female with hx of HTN, asthma, Parkinson's, recent [facility] admission for AMS/hypernatremia, presents for AMS, FTT, found to be profoundly hypernatremic, AVERY. Pt hemodynamically stable, AVERY improving, tolerating PO pureed diet well. Hospice consult obtained, daughter would like to take patient home; would instead like fpc placement. Will discuss with social media intern and possible fpc placement: Hospital acquired pneumonia: - RLL shows patchy opacity at right lung base - infiltrate vs atelectasis - C/w Cefepime and Doxycycline - Procal 3.42 - F/u urine/blood cultures - ID consulted. F/u recs. Hypernatremia, resolved: 2/2 poor oral intake vs renal losses vs GI loss vs insensible losses - Free water deficit 4.2 L, will avoid rapid correction (6-8 mmol/day or <0.5 meq/h) - C/w D5W 100. Will discuss with Nephro. Cont to monitor - nephro consulted. appreciate recs. - Seizure/fall precautions UTI: - Pt nonverbal, incontinent at baseline - Ucx shows E faecalis, S to Ampicillin, Nitrofurantoin, Zyvox, PCN, tigecycline , Vanco. R to Cipro, erythromycin, levaquin, tetra - Pt on Cefepime AMS/lethargy, improvin/2 hypernatremia vs infectious etiology vs ftt - correct hypernatemia as above - CXR neg. UA neg for infection. Blood cultures neg to date. Procal 0.71. urine culture neg. - cont to monitor Hyperkalemia: -resolved. Will cont to monitor. Failure to thrive: - Dehydrated, no oral intake over several days at home. - Formal speech and swallow eval recommended puree with extra thick gravy, honey thick liquids. - Pureed diet/honey thick liquids. AVERY superimposed on CKD: Likely secondary to dehydration vs ATN - Pt has hx of CKD - Nephro consulted. f/u recs - daily cmp/ cont to monitor. Thrombocytopenia, resolved: 2/2 protonix side effect vs dilutional - Plt improving. previously 320s on 10/22/17. (>50% drop in plts on this admission ) - Stopped Heparin. switched to SCDs for dvt ppx - HIT antibody negative. - Switched protonix to pepcid for gi ppx. Prophylaxis Pepcid SCDs Discussed with Dr Dowling. Ember Magaña, PGY1 <Cheyanne Dowling - Last Filed: 11/05/17 17:43> Objective - Vital Signs/Intake and Output Vital Signs (last 24 hours): Temp Pulse Resp BP Pulse Ox 98.8 F 68 21 126/71 100 11/05/17 12:00 11/05/17 12:01 11/05/17 12:01 11/05/17 12:01 11/05/17 12:01 Intake and Output: 11/05/17 11/05/17 06:59 18:59 Intake Total 1200 Output Total 900 Balance 300 - Medications Medications: Current Medications Acetaminophen (Tylenol 325mg Tab) 650 mg PO Q4H PRN PRN Reason: Fever >100.4 F Last Admin: 11/03/17 16:31 Dose: 650 mg Albuterol/Ipratropium (Duoneb 3 Mg/0.5 Mg (3 Ml) Ud) 3 ml IH Q2H PRN PRN Reason: Shortness of Breath Albuterol/Ipratropium (Duoneb 3 Mg/0.5 Mg (3 Ml) Ud) 3 ml IH Q4H DAVID Last Admin: 11/05/17 13:16 Dose: 3 ml Calcium Acetate (Phoslo) 667 mg PO WM DAVID Last Admin: 11/05/17 11:48 Dose: 667 mg Doxycycline Hyclate (Doryx) 100 mg PO Q12 DAVID PRN Reason: Protocol Last Admin: 11/05/17 11:48 Dose: 100 mg Famotidine (Pepcid) 20 mg PO DAILY [facility] Hydralazine HCl (Apresoline) 10 mg IVP Q6 PRN PRN Reason: Systolic Blood Pressure Cefepime HCl (Maxipime 1gm) 1 gm in 100 mls @ 100 mls/hr IVPB Q24H DAVID PRN Reason: Protocol Stop: 11/13/17 13:16 Last Admin: 11/05/17 12:15 Dose: 100 mls/hr - Labs Labs: 11/05/17 06:00 11/05/17 06:00 PT 10.2 SECONDS (9.4-12.5) 11/05/17 06:00 INR 0.89 (0.93-1.08) L 11/05/17 06:00 APTT 31.7 Seconds (25.1-36.5) 11/05/17 06:00 Attending/Attestation - Attestation I have personally seen and examined this patient.: Yes I have fully participated in the care of the patient.: Yes I have reviewed all pertinent clinical information, including history, physical exam and plan: Yes Notes (Text): 11/05/17 17:41 77 year old female with past medical history of hypertension, asthma/COPD, Parkinson's, and CKD who presented with AMS; found to have severe hypernatremia , acute on chronic kidney disease, and CO2 retention. Nephrology is following for her acute on chronic renal disease and hypernatremia both which have improved. Continue with bipap at night with serial ABG monitoring as needed. Her mental status has improved close to baseline. Continue with iv antibiotics for RLL pneumonia as per ID. Cheyanne Dowling MD Hospitalist.
--- NOTE | 2017-11-05 22:30 | PN ---
DATE: 11/05/2017 SUBJECTIVE: The patient is seen lying in bed in the ICU. She is awake. She is alert. She is not really following commands. PHYSICAL EXAMINATION: GENERAL: She does not appear to be in any kind of distress. VITAL SIGNS: Blood pressure 126/71, heart rate 68, respiratory rate 21, temperature 98.8. HEENT: Normocephalic, atraumatic, positive pallor. NECK: Supple, no JVD. LUNGS: Bilateral equal entry, no rales. EXTREMITIES: No lower extremity edema. LABORATORY DATA: WBC 6, hemoglobin 9, hematocrit 32, platelets 140. Sodium 140, potassium 4.6, chloride 99, CO2 of 32, BUN 65, creatinine 5.1, glucose 106, calcium 7.7, albumin 2.8, corrected calcium is 8.5, phosphorus was 5.9 yesterday. Repeat urinalysis; straw, slightly cloudy, pH 6.0, specific 1.005, protein trace, blood moderate, nitrite small, creatinine clearance 6. Urine culture, enterococcus. CURRENT MEDICATIONS: D5W at 100, doxycycline 100 q. 12, DuoNeb, cefepime, Pepcid, PhosLo, Tylenol. ASSESSMENT: 1. Resolved acute kidney injury, chronic kidney disease stage V/endstage renal disease. 2. Anemia of chronic kidney disease. 3. Resolved hypernatremia. 4. Advanced dementia. 5. Hypertension. PLAN: 1. Discontinue IV fluids. 2. Push p.o. intake. 3. Palliative care consult. 4. Family to decide regarding disposition. Juli Montelongo MD
[2017-11-06] MEDS: Albuterol-Ipratrop 3 mg / 0.5 (3 ml) UD IH SCH ×5 (00:15→19:52)
--- NOTE | 2017-11-06 02:12 | PN ---
DATE: 11/05/2017 SUBJECTIVE: The patient is in bed in no acute distress, nontoxic. PHYSICAL EXAMINATION: VITAL SIGNS: On exam, temperature is 99, blood pressure is 130/70, respiratory rate of 18, and heart rate of 73. HEENT: Examination of HEENT is unremarkable. NECK: Supple. LUNGS: Have decreased breath sounds. HEART: Normal S1, S2. ABDOMEN: Soft. LABORATORY DATA: Laboratory examination revealed a white count of 6.1, hemoglobin of 9. Chemistries revealed a BUN of 65, creatinine of 5.1. Procalcitonin is 3.42. Microbiology revealed the urine culture from 11/03/2017 with Enterococcus faecalis, ampicillin. Blood cultures with no growth. ASSESSMENT AND PLAN: This is a 77-year-old female with dementia, chronic obstructive lung disease, cerebrovascular accident, hypertension, asthma, diagnosis of dehydration, admitted with severe sepsis, healthcare-associated pneumonia, acute kidney injury on top of chronic kidney injury. Skin, nares methicillin-resistant Staphylococcus aureus is negative. Blood cultures are negative. Currently, on cefepime and doxycycline, day #2. We will follow closely with you. Vineet Ford MD
[2017-11-06 06:55] LABS: BASO # 0.01 K/mm3 (0.0-2.0); BASO % 0.2 % (0.0-3.0); EOS # 0.1 (0.0-0.7); EOS % 2.4 % (1.5-5.0); GRAN # 3.59 (1.4-6.5); HEMOGLOBIN 8.8 g/dL (12.0-16.0); LYMPH # 0.8 (1.2-3.4); LYMPH % 16.6 % (22.0-35.0); MEAN CORPUSCULAR HGB CONC 29.6 g/dl (31.0-37.0); MEAN PLATELET VOLUME 10.6 fl (7.0-11.0); MONO # 0.4 (0.1-0.6); MONO % 8.8 % (1.0-6.0); RBC 3.03 10^6/uL (3.5-6.1); RED CELL DISTRIBUTION WIDTH 15.5 % (11.5-14.5)
[2017-11-06 07:17] LABS: INR 0.94 (0.93-1.08); PARTIAL THROMBOPLASTIN TIME 33.1 Seconds (25.1-36.5); PROTHROMBIN TIME 10.8 SECONDS (9.4-12.5)
[2017-11-06 07:40] LABS: ALBUMIN 3.1 g/dL (3.0-4.8)
[2017-11-06 10:10] LABS: IRON 38 ug/dL (45-180)
[2017-11-06 10:19] LABS: % IRON SATURATION 19 % (20-55); TOTAL IRON BINDING CAPACITY 202 ug/dL (265-497)
[2017-11-06] MEDS: Cefepime 1gm in NS 100ml 1 GM/100 ML BAG IVPB SCH (12:32)
--- NOTE | 2017-11-06 12:32 | CP.PCM.PN ---
<Ember Magaña - Last Filed: 11/06/17 12:28> Subjective - Date & Time of Evaluation Date of Evaluation: 11/06/17 Time of Evaluation: 12:28 - Subjective Subjective: Ember Magaña, PGY1, Medicine Progress Note for Dr Dowling: Patient seen and examined at bedside. No acute events overnight. Pt refused bipap at night. Pt tolerating PO diet well. Denies fever, chills, n/v/ abdominal pain. Pt awake, arousable, nodding to questions, nonverbal at baseline. Objective - Vital Signs/Intake and Output Vital Signs (last 24 hours): Temp Pulse Resp BP Pulse Ox 98.4 F 88 28 H 130/75 96 11/06/17 11:56 11/06/17 10:00 11/06/17 10:00 11/06/17 08:00 11/06/17 10:00 Intake and Output: 11/06/17 11/06/17 06:59 18:59 Intake Total 0 Output Total 1200 Balance -1200 - Medications Medications: Current Medications Acetaminophen (Tylenol 325mg Tab) 650 mg PO Q4H PRN PRN Reason: Fever >100.4 F Last Admin: 11/03/17 16:31 Dose: 650 mg Albuterol/Ipratropium (Duoneb 3 Mg/0.5 Mg (3 Ml) Ud) 3 ml IH Q2H PRN PRN Reason: Shortness of Breath Albuterol/Ipratropium (Duoneb 3 Mg/0.5 Mg (3 Ml) Ud) 3 ml IH Q4H [facility] Last Admin: 11/06/17 08:15 Dose: Not Given Calcium Acetate (Phoslo) 667 mg PO WM [facility] Last Admin: 11/06/17 08:30 Dose: 667 mg Doxycycline Hyclate (Doryx) 100 mg PO Q12 DAVID PRN Reason: Protocol Last Admin: 11/06/17 09:21 Dose: 100 mg Famotidine (Pepcid) 20 mg PO DAILY [facility] Last Admin: 11/06/17 09:21 Dose: 20 mg Hydralazine HCl (Apresoline) 10 mg IVP Q6 PRN PRN Reason: Systolic Blood Pressure Cefepime HCl (Maxipime 1gm) 1 gm in 100 mls @ 100 mls/hr IVPB Q24H DAVID PRN Reason: Protocol Stop: 11/13/17 13:16 Last Admin: 11/05/17 12:15 Dose: 100 mls/hr - Labs Labs: 11/06/17 05:30 11/06/17 05:30 PT 10.8 SECONDS (9.4-12.5) 11/06/17 05:30 INR 0.94 (0.93-1.08) 11/06/17 05:30 APTT 33.1 Seconds (25.1-36.5) 11/06/17 05:30 - Additional Findings Additional findings: - Constitutional Appears: Non-toxic, No Acute Distress, Older Than Stated Age - Head Exam Head Exam: ATRAUMATIC, NORMOCEPHALIC - Eye Exam Eye Exam: PERRL. absent: Conjunctival injection, Nystagmus, Scleral icterus Pupil Exam: PERRL. absent: Fixed, Irregular, Unequal - ENT Exam ENT Exam: Mucous Membranes Moist - Neck Exam Neck Exam: Full ROM - Respiratory Exam Respiratory Exam: Clear to Ausculation Bilateral, NORMAL BREATHING PATTERN. absent: Accessory Muscle Use, Rhonchi, Wheezes, Respiratory Distress - Cardiovascular Exam Cardiovascular Exam: RRR, +S1, +S2. absent: Murmur - GI/Abdominal Exam GI & Abdominal Exam: Soft, Normal Bowel Sounds. absent: Distended, Tenderness, Mass, Organomegaly, Rebound - Extremities Exam Extremities Exam: Normal Inspection. absent: Calf Tenderness, Pedal Edema - Back Exam Back Exam: NORMAL INSPECTION - Neurological Exam Neurological Exam: More awake, alert, nods to questions. - Psychiatric Exam Psychiatric exam: Normal mood and affect - Skin Skin Exam: Dry, Normal Color, Warm Assessment and Plan - Assessment and Plan (Free Text) Assessment: 77 year old female with hx of HTN, asthma, Parkinson's, recent [facility] admission for AMS/hypernatremia, presents for AMS, FTT, found to be profoundly hypernatremic, AVERY. Pt hemodynamically stable, AVERY improving, tolerating PO pureed diet well. Hospice consult obtained, would like assisted placement. Pt medically cleared currently, will discuss with social media community manager regarding assisted placement (as per pt's insurance): Hospital acquired pneumonia: - RLL shows patchy opacity at right lung base - infiltrate vs atelectasis - C/w Cefepime and Doxycycline - Procal 3.42 - urine culture showed E faecalis. blood cultures neg to date - ID consulted. F/u recs. Hypernatremia, resolved: 2/2 poor oral intake vs renal losses vs GI loss vs insensible losses - Free water deficit 4.2 L, will avoid rapid correction (6-8 mmol/day or <0.5 meq/h) - nephro consulted. appreciate recs. - Seizure/fall precautions UTI: - Pt nonverbal, incontinent at baseline - Ucx shows E faecalis, S to Ampicillin, Nitrofurantoin, Zyvox, PCN, tigecycline , Vanco. R to Cipro, erythromycin, levaquin, tetra - Pt on Cefepime AMS/lethargy, improvin/2 hypernatremia vs infectious etiology vs ftt - correct hypernatemia as above - CXR neg. UA neg for infection. Blood cultures neg to date. Procal 0.71. urine culture neg. - cont to monitor Hyperkalemia: -resolved. Will cont to monitor. Failure to thrive: - Dehydrated, no oral intake over several days at home. - Formal speech and swallow eval recommended puree with extra thick gravy, honey thick liquids. - Pureed diet/honey thick liquids. AVERY superimposed on CKD: Likely secondary to dehydration vs ATN - Pt has hx of CKD - BUN/Cr improving. - Nephro consulted. f/u recs - daily cmp/ cont to monitor. Thrombocytopenia, resolved: 2/2 protonix side effect vs dilutional - Plt improving. previously 320s on 10/22/17. (>50% drop in plts on this admission ) - Stopped Heparin. switched to SCDs for dvt ppx - HIT antibody negative. - Switched protonix to pepcid for gi ppx. Prophylaxis Pepcid SCDs Discussed with Dr Dowling. Ember Magaña, PGY1 <Cheyanne Dowling - Last Filed: 11/06/17 14:26> Objective - Vital Signs/Intake and Output Vital Signs (last 24 hours): Temp Pulse Resp BP Pulse Ox 98.4 F 88 28 H 130/75 96 11/06/17 11:56 11/06/17 10:00 11/06/17 10:00 11/06/17 08:00 11/06/17 10:00 Intake and Output: 11/06/17 11/06/17 06:59 18:59 Intake Total 0 Output Total 1200 Balance -1200 - Medications Medications: Current Medications Acetaminophen (Tylenol 325mg Tab) 650 mg PO Q4H PRN PRN Reason: Fever >100.4 F Last Admin: 11/03/17 16:31 Dose: 650 mg Albuterol/Ipratropium (Duoneb 3 Mg/0.5 Mg (3 Ml) Ud) 3 ml IH Q2H PRN PRN Reason: Shortness of Breath Albuterol/Ipratropium (Duoneb 3 Mg/0.5 Mg (3 Ml) Ud) 3 ml IH [id number] [facility] Last Admin: 11/06/17 13:09 Dose: 3 ml Calcium Acetate (Phoslo) 667 mg PO WM [facility] Last Admin: 11/06/17 12:32 Dose: 667 mg Doxycycline Hyclate (Doryx) 100 mg PO Q12 DAVID PRN Reason: Protocol Last Admin: 11/06/17 09:21 Dose: 100 mg Famotidine (Pepcid) 20 mg PO DAILY [facility] Last Admin: 11/06/17 09:21 Dose: 20 mg Hydralazine HCl (Apresoline) 10 mg IVP Q6 PRN PRN Reason: Systolic Blood Pressure Cefepime HCl (Maxipime 1gm) 1 gm in 100 mls @ 100 mls/hr IVPB Q24H [facility] PRN Reason: Protocol Stop: 11/13/17 13:16 Last Admin: 11/06/17 12:32 Dose: 100 mls/hr - Labs Labs: 11/06/17 05:30 11/06/17 05:30 PT 10.8 SECONDS (9.4-12.5) 11/06/17 05:30 INR 0.94 (0.93-1.08) 11/06/17 05:30 APTT 33.1 Seconds (25.1-36.5) 11/06/17 05:30 Attending/Attestation - Attestation I have personally seen and examined this patient.: Yes I have fully participated in the care of the patient.: Yes I have reviewed all pertinent clinical information, including history, physical exam and plan: Yes Notes (Text): 11/06/17 14:25 77 year old female with past medical history of hypertension, asthma/COPD, Parkinson's, and CKD who presented with AMS; found to have severe hypernatremia , acute on chronic kidney disease, and CO2 retention. Nephrology is following for her acute on chronic renal disease and hypernatremia both which have improved. Continue with bipap at night with serial ABG monitoring as needed. Her mental status has improved close to baseline. Continue with iv antibiotics for RLL pneumonia as per ID. Will discuss with family and SW/CMx with d/c planning possibly to [facility]/SNF. Cheyanne Dowling MD Hospitalist.
[2017-11-06] MEDS ORDERED: Albuterol-Ipratrop 3 mg / 0.5 (3 ml) UD IH SCH (12:45)
--- NOTE | 2017-11-06 18:04 | PN ---
DATE: 11/06/2017 SUBJECTIVE: Patient is seen lying in bed. She is awake. She is eating lunch. She does not appear to be in any kind of distress. PHYSICAL EXAMINATION: VITAL SIGNS: Blood pressure 130/75, heart rate 88, respiratory rate 28, temperature 98.4. HEENT: Normocephalic, atraumatic. NECK: Supple, no JVD. LUNGS: Bilateral equal air entry, no rales. CARDIAC: S1 and S2, regular rate and rhythm, no murmur, no rub. ABDOMEN: Soft, nondistended, nontender, bowel sounds present. EXTREMITIES: No lower extremity edema. INTAKE AND OUTPUT: 1240/2350. LABORATORY DATA: WBC 5, hemoglobin 8.8, hematocrit 30, platelets 193. Sodium 144, potassium 4.4, chloride 101, CO2 32, BUN 61, creatinine 4.9, glucose 92, calcium 9.0, phosphorus 4.6, iron saturation 19, iron 38, ferritin pending. CURRENT MEDICATIONS: Doxycycline 100 q.12, DuoNeb, Maxipime 1 g daily, Pepcid, PhosLo, Tylenol. ASSESSMENT: 1. Resolved acute kidney injury. 2. Chronic kidney disease, stage V. 3. Anemia of chronic kidney disease. 4. Advanced dementia. 5. Hypertension. 6. Hyperphosphatemia. 7. Secondary hyperparathyroidism, suspect. PLAN 1. Stable renal function. 2. Venofer 200 mg IV piggyback x2 doses. 3. No indication for dialysis at this time of discharge planning. Juli Montelongo MD
--- NOTE | 2017-11-07 00:32 | PN ---
DATE: 11/06/2017 SUBJECTIVE: Patient was seen earlier this morning in room 129, bed 6. PHYSICAL EXAMINATION VITAL SIGNS: Patient's temperature is 98, blood pressure is 150/90, respiratory rate of 23, heart rate of 97. HEENT: Unremarkable. NECK: Supple. LUNGS: Have decreased breath sounds. HEART: Normal S1 and S2. ABDOMEN: Soft. LABORATORY DATA: White count of 5, hemoglobin of 8, platelets of 193. Chemistries reveal a BUN of 61, creatinine of 4.9, procalcitonin is 3.42. Microbiology reveals Enterococcus faecalis in urine culture. The blood cultures are negative. Urinalysis showed 2 wbc's, repeat urinalysis is 5-10 wbc's. Review of orders reveals the patient to be on p.o. doxycycline and IV cefepime. ASSESSMENT AND PLAN: This is a 77-year-old female with dementia, chronic obstructive lung disease, cerebrovascular accident, hypertension, asthma, diagnosis of dehydration, admitted with severe sepsis, healthcare-associated pneumonia, acute kidney injury on top of chronic kidney injury and with cefepime and doxycycline day #3, will complete 4-7 days. If the Enterococcus in the urine is asymptomatic, may be able to switch to p.o. antibiotics in the a.m. to complete 4-7 days of antibiotics. Vineet Ford MD
[2017-11-07] MEDS: Albuterol-Ipratrop 3 mg / 0.5 (3 ml) UD IH SCH ×2 (01:14→08:26)
[2017-11-07] MEDS ORDERED: Levalbuterol 0.63 MG/3 ML Inhal Soln UD IH PRN (09:26)
[2017-11-07 09:33] LABS: ARTERIAL BLOOD GAS HCO3 29.7 mmol/L (21-28); ARTERIAL BLOOD GAS O2 SAT 99.8 % (95-98); ARTERIAL BLOOD GAS PCO2 49 mm/Hg (35-45); ARTERIAL BLOOD GAS PH 7.39 (7.35-7.45); ARTERIAL BLOOD GAS TCO2 31.2 mmol.L (22-28)
--- NOTE | 2017-11-07 09:59 | RAD ---
HISTORY: Hypoxia COMPARISON: 11/03/2017 FINDINGS: LUNGS: No active pulmonary disease. PLEURA: No significant pleural effusion identified, no pneumothorax apparent. CARDIOVASCULAR: Normal heart size. Tortuous thoracic aorta. Left PICC catheter noted. No change in position. OSSEOUS STRUCTURES: No significant abnormalities. VISUALIZED UPPER ABDOMEN: Normal. OTHER FINDINGS: None. IMPRESSION: No acute infiltrate.
[2017-11-07] MEDS ORDERED: EnalaprilAT 1.25 mg/ml Inj IVP STA (10:13)
--- NOTE | 2017-11-07 10:16 | PN ---
DATE: 11/07/2017 SUBJECTIVE: The patient is in bed, in no acute distress this morning, nontoxic. OBJECTIVE VITAL SIGNS: On exam, temperature is 97, T-max yesterday was 100.4; respiratory rate of 20; heart rate of 88. HEENT: Examination is unremarkable. NECK: Supple. LUNGS: Have decreased breath sounds. HEART: Normal S1, S2. ABDOMEN: Soft and nontender. LABORATORY DATA: Laboratory examination reveals a white count of 5, hemoglobin of 8, platelets of 193,000. Coagulation is noted and chemistries reveals a BUN of 61, creatinine of 4.9. Urinalysis is noted and microbiology reveals Enterococcus. ASSESSMENT AND PLAN: This is a 77-year-old female with dementia, chronic obstructive lung disease, cerebrovascular accident, hypertension, asthma, diagnosis of dehydration, admitted with severe sepsis, healthcare-associated pneumonia, acute kidney injury on top of chronic kidney injury. Today is day #4 of cefepime and doxycycline and enterococcus in the urine with an unremarkable urinalysis, maybe able to switch to p.o. antibiotics the p.o. doxycycline and cefepime, today is day #4 and switch to p.o. Levaquin 250 mg p.o. once daily for three more days upon discharge. Vineet Ford MD
[2017-11-07] MEDS ORDERED: levETIRAcetam 500mg IVPB 500 MG/100 ML BAG IVPB STA (10:25)
[2017-11-07] MEDS ORDERED: Valproate 1,000 MG in Sodium Chloride 0.9% 100 ML IVPB STA (11:11)
[2017-11-07 11:15] LABS: ALBUMIN 3.4 g/dL (3.0-4.8); CALCIUM 9.9 mg/dL (8.4-10.5)
[2017-11-07 11:32] LABS: BASO # 0.02 K/mm3 (0.0-2.0); BASO % 0.4 % (0.0-3.0); EOS % 0.7 % (1.5-5.0); GRAN # 4.43 (1.4-6.5); GRAN % 77.9 % (50.0-68.0); HEMOGLOBIN 9.5 g/dL (12.0-16.0); LYMPH # 0.5 (1.2-3.4); MEAN CORPUSCULAR HEMOGLOBIN 30.3 pg (25.0-35.0); MEAN CORPUSCULAR HGB CONC 30.5 g/dl (31.0-37.0); MEAN PLATELET VOLUME 10.7 fl (7.0-11.0); MONO # 0.7 (0.1-0.6); RBC 3.14 10^6/uL (3.5-6.1); RED CELL DISTRIBUTION WIDTH 16.1 % (11.5-14.5); WHITE BLOOD COUNT 5.7 10^3/ul (4.5-11.0)
[2017-11-07 11:33] LABS: INR 0.98 (0.93-1.08); PARTIAL THROMBOPLASTIN TIME 36.5 Seconds (25.1-36.5); PROTHROMBIN TIME 11.3 SECONDS (9.4-12.5)
--- NOTE | 2017-11-07 11:55 | CT ---
PROCEDURE: CT HEAD WITHOUT CONTRAST. HISTORY: AMS COMPARISON: 11/01/2017 TECHNIQUE: Axial computed tomography images were obtained through the head/brain without intravenous contrast. Radiation dose: Total exam DLP = 824.19 mGy-cm. This CT exam was performed using one or more of the following dose reduction techniques: Automated exposure control, adjustment of the mA and/or kV according to patient size, and/or use of iterative reconstruction technique. FINDINGS: HEMORRHAGE: No intracranial hemorrhage. BRAIN: No mass effect or edema. Moderate diffuse atrophy. Moderate to severe patchy and confluent periventricular and deep white matter lucency consistent with chronic microvascular ischemic change. Old bilateral basal ganglia lacunar infarcts. No evidence of acute infarct. Old left pontine lacune. VENTRICLES: Unremarkable. No hydrocephalus. CALVARIUM: Unremarkable. PARANASAL SINUSES: Unremarkable as visualized. No significant inflammatory changes. MASTOID AIR CELLS: Nonspecific right mastoid effusion. Fluid/soft tissue density in right middle ear cavity. Please correlate clinically. OTHER FINDINGS: None. IMPRESSION: No intracranial mass, hemorrhage or evidence of acute infarct. Extensive chronic microvascular ischemic change. Nonspecific right mastoid effusion with fluid/soft tissue density in right middle ear. Please correlate clinically for otitis media/mastoiditis.
--- NOTE | 2017-11-07 11:57 | PN ---
DATE: 11/07/2017 SUBJECTIVE: The patient is seen lying in bed. She is on nonrebreather. She appears to be in moderate respiratory distress. She is not arousable. PHYSICAL EXAMINATION: GENERAL: Elderly lady, lying in bed. VITAL SIGNS: Blood pressure 192/103, heart rate 105, respiratory rate 22, temperature 98.5. HEENT: Normocephalic, atraumatic. Pupils sluggish, reactive to light. NECK: Supple. No JVD. LUNGS: Bilateral equal air entry anteriorly. No rales appreciated. CARDIAC: S1 and S2. Regular rate and rhythm. No murmur, no rub. ABDOMEN: Soft, nondistended, nontender. Bowel sounds present. EXTREMITIES: No lower extremity edema. INTAKE AND OUTPUT: 350/1050. LABORATORY DATA: WBC 5, hemoglobin 8.8, hematocrit 30, platelets 193. No chemistry today. CURRENT MEDICATIONS: Doxycycline 100 q. 12, Venofer 100, Maxipime 1 g, Pepcid, PhosLo, Tylenol, Xopenex. ASSESSMENT: 1. Acute kidney injury superimposed on chronic disease stage 5, resolved acute kidney injury. 2. Advanced dementia. 3. Anemia of chronic kidney disease. 4. Secondary hyperparathyroidism. 5. Hypertension. PLAN: 1. At this time, the patient is in respiratory distress. She does not appear to be volume overloaded, but this could be because of uremia. The patient is not really a candidate for dialysis, but we will have to discuss with family. 2. Continue Venofer. 3. Continue empiric antibiotics. 4. Discuss with Dr. Dowling. Juli Montelongo MD
[2017-11-07 12:46] LABS: ARTERIAL BLOOD GAS HCO3 33.4 mmol/L (21-28); ARTERIAL BLOOD GAS HEMOGLOBIN 8.8 g/dL (11.7-17.4); ARTERIAL BLOOD GAS O2 CAPACITY 12.1 mL/dl (16-24); ARTERIAL BLOOD GAS O2 CONTENT 11.9 ML/dl (15-23); ARTERIAL BLOOD GAS O2 SAT 98.6 % (95-98); ARTERIAL BLOOD GAS PCO2 48 mm/Hg (35-45); ARTERIAL BLOOD GAS PH 7.45 (7.35-7.45); ARTERIAL BLOOD GAS TCO2 34.9 mmol.L (22-28)
--- NOTE | 2017-11-07 12:59 | PN ---
DATE: 11/07/2017 LEAD SYSTEMS DEVELOPER NOTE SUBJECTIVE: Patient is a 77-year-old female that was admitted on 11/01/2017 to the ICU for altered mental status and sepsis as well as acute kidney insufficiency. The patient did well and was transferred to the floor. This morning, she developed episode of hypoxia and had new onset seizures. The patient was given Ativan and Keppra. Neurology was called. The patient became totally unresponsive, but continued to be hemodynamically stable and the patient was intubated because of hypoxia and to protect the airway. Also, the patient was prior to intubation having labored breathing. CT scan of the head was done, results are pending. At this time, the patient has been transferred to the Intensive Care Unit. She is ventilator dependent and unresponsive on no sedative medications other than the 2 mg of Ativan. PHYSICAL EXAMINATION: VITAL SIGNS: Note that her temperature is 98.5, pulse is 105, respirations 18, and BP is 192/103. HEENT: Head: Atraumatic, normocephalic. Eyes: Reactive to light. Ear, nose and throat: Seemed to be within normal limits. NECK: Supple. No JVD. No thyroid enlargement or lymph nodes. HEART: Has regular rate and rhythm. Normal S1, S2. LUNGS: Reveal rare rhonchi at the bases. ABDOMEN: Soft. Decreased bowel sounds. No organomegaly noted. GENITALIA: Deferred. RECTAL: Deferred. MUSCULOSKELETAL: No joint deformities. EXTREMITIES: Reveal no edema. NEUROLOGICAL: The patient is unresponsive on the ventilator at this time. LABORATORY DATA: As far as her laboratories are concerned, her white count is 5.7, hemoglobin is 9.5, hematocrit 31.1 with platelets of 266,000. Arterial blood gas prior to intubation was a pH of 7.39, pCO2 of 49, pO2 of 271. This was on a non-rebreather, O2 support mass and prior to the onset of seizures. Patient's sodium is 147, potassium 4.2, chloride 103, CO2 of 29 with a BUN of 59, creatinine of 4.8 and a glucose of 157. As far as chest x-ray, it reveals no infiltrates and repeat chest x-ray after intubation is pending. CT of the head has been done, but interpretation is pending. IMPRESSION: This patient has new onset seizures with respiratory failure requiring ventilator support. Patient is status post sepsis and has a history of dementia, Parkinson disease, chronic obstructive pulmonary disease, cerebrovascular accident, hypertension, chronic kidney failure and anemia. PLAN: As far as our plan, the patient is on ventilator support and arterial blood gas and chest x-ray will be followed. She has a Neuro consult and CT scan of the head has been done. Patient has been given Keppra as well as Ativan and has been transferred to the Intensive Care Unit. We will continue with bronchodilators. As far as lungs are concerned, she is getting Xopenex. Patient will continue with her Pepcid and cefepime as well as the doxycycline. She will continue to be followed by ID. We will get a Pulmonary consult and we will continue to treat aggressively along with the other consultants and the primary care doctor. Sony Reyes MD
[2017-11-07] MEDS: Levalbuterol 0.63 MG/3 ML Inhal Soln UD IH SCH ×2 (13:01→21:05)
--- NOTE | 2017-11-07 13:04 | RAD ---
HISTORY: intubation stat COMPARISON: 11/07/2017 at 9:35 a.m. FINDINGS: LUNGS: Infiltrate/atelectasis left lower lobe. PLEURA: No significant pleural effusion identified, no pneumothorax apparent. CARDIOVASCULAR: Normal heart size. Endotracheal tube tip in proximal right mainstem bronchus. This should be repositioned or replaced. OSSEOUS STRUCTURES: No significant abnormalities. VISUALIZED UPPER ABDOMEN: Normal. OTHER FINDINGS: None. IMPRESSION: Endotracheal tube tip in proximal right mainstem bronchus. This must be repositioned or replaced. Left lower lobe infiltrate/atelectasis. This finding was reported to the patient's nurse in the ICU, Kristyn, by telephone at 1 p.m. on 11/07/2017.
--- NOTE | 2017-11-07 13:49 | RAD ---
HISTORY: oral gastric tube placement COMPARISON: 11/07/2017 at 11:07 a.m. FINDINGS: LUNGS: Patchy opacity remains at left base, possibly infiltrate versus atelectasis. PLEURA: No significant pleural effusion identified, no pneumothorax apparent. CARDIOVASCULAR: Normal heart size. Endotracheal tube tip now seen approximately 3.8 cm above the tracheal daniela. Orogastric tube extends to the left upper quadrant of the abdomen. OSSEOUS STRUCTURES: No significant abnormalities. VISUALIZED UPPER ABDOMEN: Normal. OTHER FINDINGS: None. IMPRESSION: Repositioned endotracheal tube. Orogastric tube. Patchy opacity at left base, pneumonia versus atelectasis.
[2017-11-07] MEDS: Cefepime 1gm in NS 100ml 1 GM/100 ML BAG IVPB SCH (14:40)
--- NOTE | 2017-11-07 17:31 | CP.PCM.CON ---
History of Present Illness - History of Present Illness History of Present Illness: Neurology Consult Note: Mrs. Sylvester is a 77-year-old woman with a past medical history of dementia ( severe, non-verbal), COPD, HTN, CKD, CVA of who was sent from [facility] with increased lethargy and was found to have severe hypernatremia, and pneumonia. This morning, she had several witnessed seizures and required intubation for airway protection. I spoke with Dr. eDwey this morning and recommended loading with Depakote. Currently, the patient is intubated, sedated, not having significant response. She moves all extremities to painful stimulus. CT scan of the head was done and did not show any acute findings. Review of Systems - Review of Systems All systems: reviewed and no additional remarkable complaints except Past Patient History - Past Social History Smoking Status: Former Smoker - CARDIAC Hx Pacemaker: No - PULMONARY Hx Asthma: Yes - NEUROLOGICAL HX Cerebrovascular Accident: (questionable cva in [place] 2006) Hx Parkinson's Disease: Yes (questionable) Other/Comment: uncontrollable twitching, jittery,short term memory loss, forgetful since 2010 worsening 2013, difficulty walking - HEENT Hx Cataracts: Yes (left eye) - HEMATOLOGICAL/ONCOLOGICAL Hx Cancer: No - INTEGUMENTARY Other/Comment: dry skin ble - MUSCULOSKELETAL/RHEUMATOLOGICAL Hx Falls: Yes (recent frequent) - GASTROINTESTINAL Hx Gastroesophageal Reflux: Yes - PSYCHIATRIC Hx Substance Use: No - SURGICAL HISTORY Hx Mastectomy: No Meds Allergies/Adverse Reactions: Allergies Allergy/AdvReac Type Severity Reaction Status Date / Time No Known Allergies Allergy Verified 11/01/17 14:45 - Medications Medications: Current Medications Acetaminophen (Tylenol 325mg Tab) 650 mg PO Q4H PRN PRN Reason: Fever >100.4 F Last Admin: 11/03/17 16:31 Dose: 650 mg Calcium Acetate (Phoslo) 667 mg PO WM DAVID Last Admin: 11/07/17 13:59 Dose: 667 mg Doxycycline Hyclate (Doryx) 100 mg PO Q12 DAVID PRN Reason: Protocol Last Admin: 11/07/17 14:00 Dose: 100 mg Famotidine (Pepcid) 20 mg PO DAILY DAVID Last Admin: 11/07/17 13:59 Dose: 20 mg Cefepime HCl (Maxipime 1gm) 1 gm in 100 mls @ 100 mls/hr IVPB Q24H DAVID PRN Reason: Protocol Stop: 11/13/17 13:16 Last Admin: 11/07/17 14:40 Dose: 100 mls/hr Valproate Sodium 500 mg/ (Sodium Chloride) 105 mls @ 100 mls/hr IVPB BID DAVID Levalbuterol HCl (Xopenex) 0.63 mg IH [id number] DAVID Last Admin: 11/07/17 13:01 Dose: 0.63 mg Levalbuterol HCl (Xopenex) 0.63 mg IH Q2 PRN PRN Reason: Shortness of Breath Last Admin: 11/07/17 09:40 Dose: 0.63 mg Physical Exam - Constitutional Appears: Cachectic, Chronically Ill - Head Exam Head Exam: ATRAUMATIC, NORMAL INSPECTION, NORMOCEPHALIC - Eye Exam Eye Exam: EOMI, Normal appearance, PERRL - ENT Exam ENT Exam: Mucous Membranes Moist, Normal Exam - Neurological Exam Additional comments: Intubated, pupils are reactive, moves all extremities to pain, does not open eyes, no response to verbal stimulus. No seizure-like activity noted. Results - Vital Signs Recent Vital Signs: Last Vital Signs Temp 98.5 F 11/07/17 16:00 Pulse 99 H 11/07/17 16:00 Resp 20 11/07/17 16:00 BP 114/82 11/07/17 16:00 Pulse Ox 99 11/07/17 16:00 - Labs Result Diagrams: 11/07/17 11:00 11/07/17 11:00 Labs: Laboratory Results - last 24 hr 11/07/17 11/07/17 11/07/17 08:57 09:30 10:11 WBC RBC Hgb Hct MCV MCH MCHC RDW Plt Count MPV Gran % Lymph % (Auto) [place] % (Auto) Eos % (Auto) Baso % (Auto) Gran # Lymph # (Auto) [place] # (Auto) Eos # (Auto) Baso # (Auto) PT INR APTT pCO2 49 H pO2 271.0 H HCO3 29.7 H ABG pH 7.39 ABG Total CO2 31.2 H ABG O2 Saturation 99.8 H ABG O2 Content ABG Base Excess 3.7 H ABG Hemoglobin ABG Carboxyhemoglobin POC ABG HHb (Measured) ABG Methemoglobin ABG O2 Capacity ABG Potassium 3.6 Hgb O2 Saturation Sodium 145.0 Chloride 112.0 H Glucose 135 H Lactate 1.5 FiO2 100.0 Potassium Carbon Dioxide Anion Gap BUN Creatinine Est GFR ( Amer) Est GFR (Non-Af Amer) POC Glucose (mg/dL) 130 H 124 H Random Glucose Calcium Phosphorus Magnesium Total Bilirubin AST ALT Alkaline Phosphatase Total Protein Albumin Globulin Albumin/Globulin Ratio Arterial Blood Potassium 3.6 11/07/17 11/07/17 11/07/17 11:00 11:00 11:00 WBC 5.7 RBC 3.14 L Hgb 9.5 L Hct 31.1 L MCV 99.0 MCH 30.3 MCHC 30.5 L RDW 16.1 H Plt Count 266 MPV 10.7 Gran % 77.9 H Lymph % (Auto) 9.0 L [place] % (Auto) 12.0 H Eos % (Auto) 0.7 L Baso % (Auto) 0.4 Gran # 4.43 Lymph # (Auto) 0.5 L [place] # (Auto) 0.7 H Eos # (Auto) 0.0 Baso # (Auto) 0.02 PT 11.3 INR 0.98 APTT 36.5 pCO2 pO2 HCO3 ABG pH ABG Total CO2 ABG O2 Saturation ABG O2 Content ABG Base Excess ABG Hemoglobin ABG Carboxyhemoglobin POC ABG HHb (Measured) ABG Methemoglobin ABG O2 Capacity ABG Potassium Hgb O2 Saturation Sodium 147 Chloride 103 Glucose Lactate FiO2 Potassium 4.2 Carbon Dioxide 29 Anion Gap 18 BUN 59 H Creatinine 4.8 H Est GFR ( Amer) 11 Est GFR (Non-Af Amer) 9 POC Glucose (mg/dL) Random Glucose 157 H Calcium 9.9 Phosphorus 5.0 H Magnesium 2.0 Total Bilirubin 0.5 AST 32 ALT 37 Alkaline Phosphatase 137 H D Total Protein 6.7 Albumin 3.4 Globulin 3.3 Albumin/Globulin Ratio 1.0 L Arterial Blood Potassium 11/07/17 12:40 WBC RBC Hgb Hct MCV MCH MCHC RDW Plt Count MPV Gran % Lymph % (Auto) [place] % (Auto) Eos % (Auto) Baso % (Auto) Gran # Lymph # (Auto) [place] # (Auto) Eos # (Auto) Baso # (Auto) PT INR APTT pCO2 48 H pO2 78.0 L HCO3 33.4 H ABG pH 7.45 ABG Total CO2 34.9 H ABG O2 Saturation 98.6 H ABG O2 Content 11.9 L ABG Base Excess 8.4 H ABG Hemoglobin 8.8 L ABG Carboxyhemoglobin 2.0 H POC ABG HHb (Measured) 1.4 ABG Methemoglobin 1.3 ABG O2 Capacity 12.1 L ABG Potassium Hgb O2 Saturation 95.3 Sodium Chloride Glucose Lactate FiO2 35.0 Potassium Carbon Dioxide Anion Gap BUN Creatinine Est GFR ( Amer) Est GFR (Non-Af Amer) POC Glucose (mg/dL) Random Glucose Calcium Phosphorus Magnesium Total Bilirubin AST ALT Alkaline Phosphatase Total Protein Albumin Globulin Albumin/Globulin Ratio Arterial Blood Potassium Assessment & Plan (1) Seizure Assessment and Plan: Likely due to metabolic derangements along with underlying brain pathology. Continue Depakote IV at 500 mg Q12 hours. Obtain EEG to evaluate for possible subclinical non-convulsive status epilepticus. Continue treatment of underlying cause per primary team. Thank you. Status: Acute Priority: High
[2017-11-07] MEDS: Valproate 500 MG in Sodium Chloride 0.9% 100 ML IVPB SCH (17:33)
--- NOTE | 2017-11-07 17:36 | PCM.RRT ---
<Sd Dewey - Last Filed: 11/07/17 17:59> DIRECTOR RELIGIOUS EDUCATION Nurse Assessment - Situation Date: 11/07/17 Time DIRECTOR RELIGIOUS EDUCATION was called: 10:07 DIRECTOR RELIGIOUS EDUCATION Responder Arrival Time: 10:09 DIRECTOR RELIGIOUS EDUCATION Location:: [address] [place] [address] Room Number: 563:2 DIRECTOR RELIGIOUS EDUCATION Reason for Call: Not Responding to Urgent Treatment, Change in Mental Status (Seizure) DIRECTOR RELIGIOUS EDUCATION Called By: RN - IV IV Inserted during DIRECTOR RELIGIOUS EDUCATION?: No - Respiratory Oxygen Delivery Method: Venturi Mask @% Oxygen Flow Rate: 15 Received Nebulizer Treatments:: No Was the Patient Ventilated with Bag/Mask 100% O2?: No Secretions Suctioned?: No Was the Patient Intubated?: Yes Was the Patient Placed on a Ventilator?: No - Diagnostic Test Ordered EKG: Yes Chest X-Ray: Yes CT Scan: Yes - Stat Labs Ordered DIRECTOR RELIGIOUS EDUCATION Stat Labs Ordered: CBC, ABG DIRECTOR RELIGIOUS EDUCATION Other Labs Ordered: CMP CPR started during DIRECTOR RELIGIOUS EDUCATION?: No - Vital Signs Vital Sign: Rapid Response Vital Sign Blood Pressure 192/103 Pulse Rate 105 Respiratory Rate 18 Temperature 98.5 F Oxygen Saturation 100 - Finger Stick Blood Glucose Finger Stick Blood Glucose: 124 - Time DIRECTOR RELIGIOUS EDUCATION Ended Time DIRECTOR RELIGIOUS EDUCATION Ended: 10:20 - Vital Signs at end of DIRECTOR RELIGIOUS EDUCATION Vital Signs at end of DIRECTOR RELIGIOUS EDUCATION: Rapid Response End Vital Sign Blood Pressure 147/101 Pulse Rate 109 Respiratory Rate 22 Temperature 97.6 F O2 Sat by Pulse Oximetry 100 - Recommendations 5) DIRECTOR RELIGIOUS EDUCATION Level of Care Recommendations: Transfer to ICU Notifications: Attending Physician, Consultations, Family or Designated Caregiver I.Reason for DIRECTOR RELIGIOUS EDUCATION - A) Acute Change in Patient: Subjective: 77 year old female with past medical history of hypertension, asthma/COPD, Parkinson's, and CKD who presented with AMS; found to have severe hypernatremia , acute on chronic kidney disease, and CO2 retention on admission. These issues resolved to a significant degree, alone with patients mental status, and patient was transferred to med/surg. DIRECTOR RELIGIOUS EDUCATION was called after patient had a seizure witnessed by nursing staff at approximately 1007. Medicine team arrived and patients vitals were as noted previously. An ABG, chest x-ray, CBC, and CMP were ordered. Patient subsequently had another seizure and was administered one dose of Ativan 2mg IVP and one dose of Keppra 500mg IVPB. Neurology was consulted and called immediately, with recommendations to start IV Depakote, with loading dose prior to maintenance dose. Pulmonology was consulted and evaluated patient. Patient was deemed unable to protect her airway and was intubated and transferred to ICU. Afterwards, a CT Head was done to evaluate for intracranial pathology. - Respiratory Oxygen Delivery Method: Venturi Mask @% Oxygen Flow Rate: 15 Plan - Assessment of Findings&Treatment Plan Transfer to ICU s/p intubation ABG showed normal lactate, normal pH, no CO2 retention and adequate oxygenation Chest X-Ray showing LLL infiltrate vs atelectasis CT Head showing no acute intracranial pathology Patient started on IV Depakote Neurology and Pulmonology were consulted Family was notified <Cheyanne Dowling - Last Filed: 11/07/17 18:28> DIRECTOR RELIGIOUS EDUCATION Nurse Assessment - Vital Signs Vital Sign: Rapid Response Vital Sign Blood Pressure 192/103 Pulse Rate 105 Respiratory Rate 18 Temperature 98.5 F Oxygen Saturation 100 - Vital Signs at end of DIRECTOR RELIGIOUS EDUCATION Vital Signs at end of DIRECTOR RELIGIOUS EDUCATION: Rapid Response End Vital Sign Blood Pressure 147/101 Pulse Rate 109 Respiratory Rate 22 Temperature 97.6 F O2 Sat by Pulse Oximetry 100 Attending/Attestation - Attestation I have personally seen and examined this patient.: Yes I have fully participated in the care of the patient.: Yes I have reviewed all pertinent clinical information, including history, physical exam and plan: Yes
--- NOTE | 2017-11-07 17:50 | CP.PCM.PN ---
<Sd Dewey - Last Filed: 11/07/17 17:46> Subjective - Date & Time of Evaluation Date of Evaluation: 11/07/17 Time of Evaluation: 12:00 - Subjective Subjective: Medicine Progress Note: Patient seen and assessed at bedside. Patient noted to be agitated during examination and uncooperative with NRB, desite having hypoxemia on monitor. Patient not verbally responsive but with spontaneous movement of all limbs. ROS was unobtainable. Objective - Vital Signs/Intake and Output Vital Signs (last 24 hours): Temp Pulse Resp BP Pulse Ox 98.5 F 99 H 20 114/82 99 11/07/17 16:00 11/07/17 16:00 11/07/17 16:00 11/07/17 16:00 11/07/17 16:00 Intake and Output: 11/07/17 11/07/17 06:59 18:59 Intake Total 0 400 Balance 0 400 - Medications Medications: Current Medications Acetaminophen (Tylenol 325mg Tab) 650 mg PO Q4H PRN PRN Reason: Fever >100.4 F Last Admin: 11/03/17 16:31 Dose: 650 mg Calcium Acetate (Phoslo) 667 mg PO WM DAVID Last Admin: 11/07/17 17:33 Dose: 667 mg Doxycycline Hyclate (Doryx) 100 mg PO Q12 DAVID PRN Reason: Protocol Last Admin: 11/07/17 14:00 Dose: 100 mg Famotidine (Pepcid) 20 mg PO DAILY [facility] Last Admin: 11/07/17 13:59 Dose: 20 mg Cefepime HCl (Maxipime 1gm) 1 gm in 100 mls @ 100 mls/hr IVPB Q24H DAVID PRN Reason: Protocol Stop: 11/13/17 13:16 Last Admin: 11/07/17 14:40 Dose: 100 mls/hr Valproate Sodium 500 mg/ (Sodium Chloride) 105 mls @ 100 mls/hr IVPB BID DAVID Last Admin: 11/07/17 17:33 Dose: 100 mls/hr Levalbuterol HCl (Xopenex) 0.63 mg IH [id number] DAVID Last Admin: 11/07/17 13:01 Dose: 0.63 mg Levalbuterol HCl (Xopenex) 0.63 mg IH Q2 PRN PRN Reason: Shortness of Breath Last Admin: 11/07/17 09:40 Dose: 0.63 mg - Labs Labs: 11/07/17 11:00 11/07/17 11:00 PT 11.3 SECONDS (9.4-12.5) 11/07/17 11:00 INR 0.98 (0.93-1.08) 11/07/17 11:00 APTT 36.5 Seconds (25.1-36.5) 11/07/17 11:00 - Constitutional Appears: Combative, Agitated - Head Exam Head Exam: ATRAUMATIC, NORMOCEPHALIC - Eye Exam Eye Exam: EOMI - ENT Exam ENT Exam: Mucous Membranes Moist - Neck Exam Neck Exam: Full ROM - Respiratory Exam Respiratory Exam: Clear to Ausculation Bilateral, NORMAL BREATHING PATTERN - Cardiovascular Exam Cardiovascular Exam: Tachycardia, REGULAR RHYTHM, +S1, +S2 - GI/Abdominal Exam GI & Abdominal Exam: Soft, Normal Bowel Sounds. absent: Tenderness - Extremities Exam Extremities Exam: Full ROM, Normal Capillary Refill. absent: Calf Tenderness, Joint Swelling - Neurological Exam Neurological Exam: Altered. absent: Alert, Awake, Oriented x3 - Psychiatric Exam Psychiatric exam: Agitated - Skin Skin Exam: Dry, Intact, Normal Color, Warm Assessment and Plan - Assessment and Plan (Free Text) Assessment: 77 year old female with a past medical history significant for HTN, asthma, Parkinson's, recent [facility] [place]/hypernatremia who presented for AMS, FTT, hypernatremia, and AVERY. Patient was medically cleared for med/surg level of care and was awaiting placement in [facility]. This morning patient noted to be agitated, requiring restraints to maintain NRB mask in place. IMPLEMENTATION SPECIALIST PAYROLL was called after patient had a seizure witnessed by nursing staff, for which she received one dose of ativan and keppra. Neurology was consulted and started Depakote. Pulmonology was consulted and deemed patient unable to protect her airway, for which she was intubated and transferred to the ICU. Plan: 1. New Onset Seizure -CT Head showed no acute hemorrhages or infarcts -Administered one dose of Ativan and Keppra -Intubated for failure to protect airway and transferred to ICU -Started on IV Depakote -NPO Diet -Fall and Seizure precautions -Neurology and Pulmonology consulted, all recommendations appreciated 2. HCAP -Chest X-Ray today showed LLL infiltrate versus atelectasis and Chest X-Ray on 11/03 showed RLL infiltrate versus atelectasis -Continue with Merrem, Cefepime and Doxycycline -Continue Xopenex Q6 scheduled and Q2 PRN -Currently intubated -Continue Tylenol PRN for fever -ID consulted, all recommendations appreciated 3. UTI -Urine culture growing for E. Faecalis -Continue with Cefepime 4. Acute Kidney Injury in setting of Chronic Kidney Disease -BUN/Creatinine improving to patients baseline -Continue Phoslo -Nephrology consulted, all recommendations appreciated GI Prophylaxis: Pepcid DVT Prophylaxis: SCD's Patient seen and case discussed with attending, Dr. Dowling. <Cheyanne Dowling - Last Filed: 11/07/17 18:33> Objective - Vital Signs/Intake and Output Vital Signs (last 24 hours): Temp Pulse Resp BP Pulse Ox 98.5 F 78 20 113/82 100 11/07/17 16:00 11/07/17 18:19 11/07/17 16:00 11/07/17 18:20 11/07/17 18:19 Intake and Output: 11/07/17 11/07/17 06:59 18:59 Intake Total 0 400 Output Total 175 Balance 0 225 - Medications Medications: Current Medications Acetaminophen (Tylenol 325mg Tab) 650 mg PO Q4H PRN PRN Reason: Fever >100.4 F Last Admin: 11/03/17 16:31 Dose: 650 mg Calcium Acetate (Phoslo) 667 mg PO WM [facility] Last Admin: 11/07/17 17:33 Dose: 667 mg Famotidine (Pepcid) 20 mg PO DAILY [facility] Last Admin: 11/07/17 13:59 Dose: 20 mg Valproate Sodium 500 mg/ (Sodium Chloride) 105 mls @ 100 mls/hr IVPB BID DAVID Last Admin: 11/07/17 17:33 Dose: 100 mls/hr Meropenem 250 mg/ Sodium (Chloride) 100 mls @ 100 mls/hr IVPB Q12H DAVID PRN Reason: Protocol Stop: 11/16/17 18:16 Vancomycin HCl (Vancomycin 1gm) 1 gm in 250 mls @ 167 mls/hr IVPB STAT STA PRN Reason: Protocol Stop: 11/07/17 19:36 Last Admin: 11/07/17 18:15 Dose: 167 mls/hr Sodium Chloride (Sodium Chloride 0.9%) 500 mls @ 999 mls/hr IV .Q31M STA Stop: 11/07/17 18:39 Last Admin: 11/07/17 18:19 Dose: 999 mls/hr Levalbuterol HCl (Xopenex) 0.63 mg IH [id number] DAVID Last Admin: 11/07/17 13:01 Dose: 0.63 mg Levalbuterol HCl (Xopenex) 0.63 mg IH Q2 PRN PRN Reason: Shortness of Breath Last Admin: 11/07/17 09:40 Dose: 0.63 mg - Labs Labs: 11/07/17 11:00 11/07/17 11:00 PT 11.3 SECONDS (9.4-12.5) 11/07/17 11:00 INR 0.98 (0.93-1.08) 11/07/17 11:00 APTT 36.5 Seconds (25.1-36.5) 11/07/17 11:00 Attending/Attestation - Attestation I have personally seen and examined this patient.: Yes I have fully participated in the care of the patient.: Yes I have reviewed all pertinent clinical information, including history, physical exam and plan: Yes Notes (Text): 11/07/17 18:30 77 year old female with past medical history of hypertension, asthma/COPD, Parkinson's, and CKD who presented with AMS; found to have severe hypernatremia , acute on chronic kidney disease, and CO2 retention. She is on iv antibiotics for RLL pneumonia and possible UTI. Today IMPLEMENTATION SPECIALIST PAYROLL was called for hypoxia and seizure. IV ativan and depakote were given. CT head was reviewed. Patient is intubated and transferred to ICU. Neurology evaluation is requested and EEG is ordered. Family notified. Cheyanne Dowling MD Hospitalist.
[2017-11-07] MEDS ORDERED: Vancomycin 1gm in NS 250ml 1 GM/250 ML BAG IVPB STA (18:07)
[2017-11-07] MEDS ORDERED: Sodium Chloride 0.9% 500 ML IV STA (18:09)
[2017-11-07] MEDS: Dextrose 5%/0.45% NS 1,000 ML IV SCH (20:00)
[2017-11-08 02:21] LABS: URINE BILIRUBIN NEGATIVE (NEGATIVE); URINE BLOOD SMALL (NEGATIVE); URINE GLUCOSE (UA) NEGATIVE (NEGATIVE); URINE LEUKOCYTE ESTERASE MODERATE Leu/uL (NEGATIVE); URINE NITRATE NEGATIVE (NEGATIVE); URINE PROTEIN 100 mg/dL (<30 mg/dL); URINE UROBILINOGEN 0.2 E.U./dL (<1 E.U./dL)
[2017-11-08 02:41] LABS: URINE APPEARANCE SL CLOUDY (CLEAR); URINE COLOR YELLOW (YELLOW)
[2017-11-08 02:43] LABS: URINE BACTERIA FEW (NEG); URINE EPITHELIAL CELLS 0 - 2 /hpf (0-5)
[2017-11-08 04:21] LABS: BASO # 0.03 K/mm3 (0.0-2.0); BASO % 0.7 % (0.0-3.0); EOS % 0.9 % (1.5-5.0); GRAN # 2.84 (1.4-6.5); GRAN % 65.6 % (50.0-68.0); HEMOGLOBIN 7.7 g/dL (12.0-16.0); LYMPH # 0.8 (1.2-3.4); LYMPH % 19.4 % (22.0-35.0); MEAN CELL VOLUME 98.8 fl (80.0-105.0); MEAN CORPUSCULAR HEMOGLOBIN 29.8 pg (25.0-35.0); MEAN CORPUSCULAR HGB CONC 30.2 g/dl (31.0-37.0); MEAN PLATELET VOLUME 10.5 fl (7.0-11.0); MONO # 0.6 (0.1-0.6); MONO % 13.4 % (1.0-6.0); RBC 2.58 10^6/uL (3.5-6.1); RED CELL DISTRIBUTION WIDTH 16.4 % (11.5-14.5); WHITE BLOOD COUNT 4.3 10^3/ul (4.5-11.0)
[2017-11-08 04:48] LABS: INR 1.03 (0.93-1.08); PARTIAL THROMBOPLASTIN TIME 34.6 Seconds (25.1-36.5); PROTHROMBIN TIME 11.8 SECONDS (9.4-12.5)
[2017-11-08 04:50] LABS: ALBUMIN 2.9 g/dL (3.0-4.8); CALCIUM 9.6 mg/dL (8.4-10.5)
--- NOTE | 2017-11-08 06:40 | CP.PCM.PN ---
Subjective - Date & Time of Evaluation Date of Evaluation: 11/08/17 Time of Evaluation: 06:39 - Subjective Subjective: Ms. Sylvester was seen and examined at the bedside in ICU. She remains on mechanical ventilator on pRVC mode. She response to tactile stimuli, but unable to follow any commands. She has episode of restlessness, bilateral wrist restraints for patient safety. There was no untoward events overnight. Objective - Vital Signs/Intake and Output Vital Signs (last 24 hours): Temp Pulse Resp BP Pulse Ox 98.5 F 71 20 128/74 100 11/07/17 16:00 11/07/17 21:00 11/07/17 16:00 11/07/17 21:00 11/07/17 21:00 Intake and Output: 11/07/17 11/08/17 18:59 06:59 Intake Total 900 Output Total 175 Balance 725 - Medications Medications: Current Medications Acetaminophen (Tylenol 325mg Tab) 650 mg PO Q4H PRN PRN Reason: Fever >100.4 F Last Admin: 11/03/17 16:31 Dose: 650 mg Calcium Acetate (Phoslo) 667 mg PO WM [facility] Last Admin: 11/07/17 17:33 Dose: 667 mg Famotidine (Pepcid) 20 mg PO DAILY [facility] Last Admin: 11/07/17 13:59 Dose: 20 mg Valproate Sodium 500 mg/ (Sodium Chloride) 105 mls @ 100 mls/hr IVPB BID [facility] Last Admin: 11/07/17 17:33 Dose: 100 mls/hr Meropenem 250 mg/ Sodium (Chloride) 100 mls @ 100 mls/hr IVPB Q12H DAVID PRN Reason: Protocol Stop: 11/16/17 18:16 Last Admin: 11/08/17 05:26 Dose: 100 mls/hr Dextrose/Sodium Chloride (Dextrose 5%/0.45% Ns 1000 Ml) 1,000 mls @ 65 mls/hr IV [id number] [facility] Last Admin: 11/07/17 20:00 Dose: 65 mls/hr Levalbuterol HCl (Xopenex) 0.63 mg IH [id number] [facility] Last Admin: 11/07/17 21:05 Dose: 0.63 mg Levalbuterol HCl (Xopenex) 0.63 mg IH Q2 PRN PRN Reason: Shortness of Breath Last Admin: 11/07/17 09:40 Dose: 0.63 mg - Labs Labs: 11/08/17 04:00 11/08/17 04:00 PT 11.8 SECONDS (9.4-12.5) 11/08/17 04:00 INR 1.03 (0.93-1.08) 11/08/17 04:00 APTT 34.6 Seconds (25.1-36.5) 11/08/17 04:00 - Constitutional Appears: No Acute Distress - Head Exam Head Exam: NORMAL INSPECTION - Neurological Exam Neuro motor strength exam: Left Upper Extremity: 3, Right Upper Extremity: 3, Left Lower Extremity: 3, Right Lower Extremity: 3 Additional comments: Intubated, pupils are reactive, moves all extremities to pain, does not open eyes, no response to verbal stimulus. Assessment and Plan (1) Seizure Assessment & Plan: Case discussed with Dr. Matias, continue all current medical regimen. Recommend to treat any metabolic derangement, monitor valproic level, and EEG. Status: Acute
[2017-11-08] MEDS: Levalbuterol 0.63 MG/3 ML Inhal Soln UD IH SCH ×3 (06:59→20:30)
--- NOTE | 2017-11-08 08:06 | CARD ---
APPROVED REPORT EKG Measurement Heart [id number] <Conclusion> Sinus tachycardia with premature atrial complexes Possible Left atrial enlargement Left axis deviation Left ventricular hypertrophy NSSTW changes Increased voltage V 3 - 6 c/w ECG 11/01/17
[2017-11-08 08:47] LABS: HEMOGLOBIN 7.4 g/dL (12.0-16.0)
[2017-11-08] MEDS: Valproate 500 MG in Sodium Chloride 0.9% 100 ML IVPB SCH ×2 (09:05→17:42)
--- NOTE | 2017-11-08 11:13 | CP.PCM.PN ---
<Sd Dewey - Last Filed: 11/08/17 17:41> Subjective - Date & Time of Evaluation Date of Evaluation: 11/08/17 Time of Evaluation: 10:56 - Subjective Subjective: Medicine Progress Note: Patient seen and assessed at bedside in ICU. No seizures noted overnight. Patient was noted to be hypotensive overnight and was given a 500ml bolus with good response in her blood pressure. Patient intubated and withdraws to painful stimuli but is otherwise unresponsive. ROS was unobtainable due to patients mental status. Objective - Vital Signs/Intake and Output Vital Signs (last 24 hours): Temp Pulse Resp BP Pulse Ox 98.6 F 85 20 145/88 96 11/08/17 08:00 11/08/17 10:00 11/08/17 08:00 11/08/17 10:00 11/08/17 10:00 Intake and Output: 11/08/17 11/08/17 06:59 18:59 Intake Total 820 Output Total 200 Balance 620 - Medications Medications: Current Medications Acetaminophen (Tylenol 325mg Tab) 650 mg PO Q4H PRN PRN Reason: Fever >100.4 F Last Admin: 11/03/17 16:31 Dose: 650 mg Calcium Acetate (Phoslo) 667 mg PO [facility] Last Admin: 11/08/17 09:05 Dose: 667 mg Famotidine (Pepcid) 20 mg PO DAILY [facility] Last Admin: 11/08/17 09:05 Dose: 20 mg Valproate Sodium 500 mg/ (Sodium Chloride) 105 mls @ 100 mls/hr IVPB BID [facility] Last Admin: 11/08/17 09:05 Dose: 100 mls/hr Meropenem 250 mg/ Sodium (Chloride) 100 mls @ 100 mls/hr IVPB Q12H DAVID PRN Reason: Protocol Stop: 11/16/17 18:16 Last Admin: 11/08/17 05:26 Dose: 100 mls/hr Dextrose/Sodium Chloride (Dextrose 5%/0.45% Ns 1000 Ml) 1,000 mls @ 65 mls/hr IV .[id number] [facility] Last Admin: 11/07/17 20:00 Dose: 65 mls/hr Levalbuterol HCl (Xopenex) 0.63 mg IH [id number] [facility] Last Admin: 11/08/17 06:59 Dose: 0.63 mg Levalbuterol HCl (Xopenex) 0.63 mg IH Q2 PRN PRN Reason: Shortness of Breath Last Admin: 11/07/17 09:40 Dose: 0.63 mg - Labs Labs: 11/08/17 08:30 11/08/17 04:00 PT 11.8 SECONDS (9.4-12.5) 11/08/17 04:00 INR 1.03 (0.93-1.08) 11/08/17 04:00 APTT 34.6 Seconds (25.1-36.5) 11/08/17 04:00 - Constitutional Appears: Chronically Ill - Head Exam Head Exam: ATRAUMATIC, NORMOCEPHALIC - ENT Exam ENT Exam: Mucous Membranes Moist - Neck Exam Neck Exam: Full ROM. absent: Lymphadenopathy - Respiratory Exam Respiratory Exam: Clear to Ausculation Bilateral, NORMAL BREATHING PATTERN - Cardiovascular Exam Cardiovascular Exam: REGULAR RHYTHM, +S1, +S2 - GI/Abdominal Exam GI & Abdominal Exam: Soft, Normal Bowel Sounds. absent: Tenderness - Extremities Exam Extremities Exam: Normal Capillary Refill. absent: Calf Tenderness, Pedal Edema - Neurological Exam Neurological Exam: absent: Alert, Awake - Skin Skin Exam: Dry, Intact, Normal Color, Warm Assessment and Plan - Assessment and Plan (Free Text) Assessment: 77 year old female with a past medical history significant for HTN, asthma, Parkinson's, recent [facility] [place] for AMS/hypernatremia who presented for AMS, FTT, hypernatremia, and AVERY. Patient was medically cleared for med/surg level of care and was awaiting placement in [facility]. This morning patient noted to be agitated, requiring restraints to maintain NRB mask in place. PEDIATRIC PHYSICIAN ASSISTANT was called after patient had a seizure witnessed by nursing staff, for which she received one dose of ativan and keppra. Neurology was consulted and started Depakote. Pulmonology was consulted and deemed patient unable to protect her airway, for which she was intubated and transferred to the ICU. Plan: 1. New Onset Seizure -CT Head showed no acute hemorrhages or infarcts -Currently intubated on PRVC for airway protection with intermittent weaning trials on CPAP plus PS mode -EEG pending -Continue IV Depakote -NPO Diet -Fall and Seizure precautions -Neurology and Pulmonology consulted, all recommendations appreciated 2. HCAP -Chest X-Ray on 11/07 showed LLL infiltrate versus atelectasis and Chest X-Ray on 11/03 showed RLL infiltrate versus atelectasis -Continue with Merrem, Cefepime and Doxycycline -Continue Xopenex Q6 scheduled and Q2 PRN -Currently intubated on -Continue Tylenol PRN for fever -ID consulted, all recommendations appreciated 3. UTI -Urine culture growing for E. Faecalis -Continue with Cefepime 4. Acute Kidney Injury in setting of Chronic Kidney Disease -BUN/Creatinine improving to patients baseline -Continue Phoslo -Nephrology consulted, all recommendations appreciated 5. Iron Deficiency Anemia -H/H dropped from 9.5 to 7.4 -Type and Screen -Transfusing two units of pRBC's -Stool for occult blood pending -Currently holding Venofer in setting of bacterial infection GI Prophylaxis: Pepcid DVT Prophylaxis: SCD's Patient seen and case discussed with attending, Dr. Dowling. <Cheyanne Dowling - Last Filed: 11/09/17 07:50> Objective - Vital Signs/Intake and Output Vital Signs (last 24 hours): Temp Pulse Resp BP Pulse Ox 98.1 F 74 20 128/69 100 11/09/17 01:15 11/09/17 06:00 11/09/17 01:15 11/09/17 03:00 11/09/17 02:59 Intake and Output: 11/09/17 11/09/17 06:59 18:59 Intake Total 1725 Output Total 700 Balance 1025 - Medications Medications: Current Medications Acetaminophen (Tylenol 325mg Tab) 650 mg PO Q4H PRN PRN Reason: Fever >100.4 F Last Admin: 11/03/17 16:31 Dose: 650 mg Calcium Acetate (Phoslo) 667 mg PO [facility] Last Admin: 11/08/17 17:29 Dose: 667 mg Famotidine (Pepcid) 20 mg PO DAILY [facility] Last Admin: 11/08/17 09:05 Dose: 20 mg Valproate Sodium 500 mg/ (Sodium Chloride) 105 mls @ 100 mls/hr IVPB BID [facility] Last Admin: 11/08/17 17:42 Dose: 100 mls/hr Meropenem 250 mg/ Sodium (Chloride) 100 mls @ 100 mls/hr IVPB Q12H DAVID PRN Reason: Protocol Stop: 11/16/17 18:16 Last Admin: 11/09/17 06:12 Dose: 100 mls/hr Dextrose/Sodium Chloride (Dextrose 5%/0.45% Ns 1000 Ml) 1,000 mls @ 65 mls/hr IV .[id number] [facility] Last Admin: 11/09/17 01:54 Dose: 65 mls/hr Levalbuterol HCl (Xopenex) 0.63 mg IH [id number] [facility]ID Last Admin: 11/09/17 07:45 Dose: 0.63 mg Levalbuterol HCl (Xopenex) 0.63 mg IH Q2 PRN PRN Reason: Shortness of Breath Last Admin: 11/07/17 09:40 Dose: 0.63 mg - Labs Labs: 11/09/17 05:30 11/08/17 04:00 PT 11.8 SECONDS (9.4-12.5) 11/08/17 04:00 INR 1.03 (0.93-1.08) 11/08/17 04:00 APTT 34.6 Seconds (25.1-36.5) 11/08/17 04:00 Attending/Attestation - Attestation I have personally seen and examined this patient.: Yes I have fully participated in the care of the patient.: Yes I have reviewed all pertinent clinical information, including history, physical exam and plan: Yes Notes (Text): 11/08/17 77 year old female with past medical history of hypertension, asthma/COPD, Parkinson's, and CKD who presented with AMS; found to have severe hypernatremia , acute on chronic kidney disease, and CO2 retention. She is on iv antibiotics for RLL pneumonia and possible UTI. ID is following. She is on iv valproate for new onset seizure yesterday. Neurology is following and EEG is pending. Agree with prbc transfusion for anemia. Family is at bedside and questions were answered. Cheyanne Dowling MD Hospitalist.
[2017-11-08] MEDS: Dextrose 5%/0.45% NS 1,000 ML IV SCH (11:39)
--- NOTE | 2017-11-08 11:43 | PN ---
DATE: 11/08/2017 [place] NOTE SUBJECTIVE: The patient is on the ventilator and does have spontaneous movements. She is being suctioned well. At this morning, she is getting a trial of CPAP pressure support and is tolerating that mode of ventilation at this time. PHYSICAL EXAMINATION: VITAL SIGNS: Physical exam note that her temperature is 98.6, her pulse is 85, respirations of 20 and BP is 133/78. SKIN: Warm and dry. HEENT: Head atraumatic, normocephalic. Eyes reactive to light. Ear, nose and throat seemed to be within normal limits. NECK: Supple. No JVD. No thyroid enlargement. No lymph nodes. HEART: Has regular rate and rhythm. Normal S1, S2. LUNGS: Reveal rare rhonchi at the bases. ABDOMEN: Soft. Decreased bowel sounds. GENITALIA AND RECTAL: Deferred. MUSCULOSKELETAL: No joint deformities. EXTREMITIES: Reveal trace lower extremity edema. NEUROLOGICALLY: The patient is responsive to painful stimuli. LABORATORY DATA: Laboratories reveal that her hemoglobin is 7.4, hematocrit 24.4. Her PT is 11.8, INR is 1.03, PTT is 34.6. Rest of her CMP is noted to have sodium of 147, potassium 4.5, chloride 106, CO2 of 28 with a BUN of 62, creatinine of 4.4 and a glucose of 91. Chest x-ray reveals that there is left lower lobe infiltrate. IMPRESSION: This patient has new onset seizure with respiratory failure requiring ventilator support. She has a left lower lobe pneumonia and we must rule out sepsis as well. She has a history of dementia, Parkinson's disease, chronic obstructive pulmonary disease, cerebrovascular accident, hypertension, chronic kidney failure and anemia. PLAN: As far as our plan, we will continue to decrease ventilator support and the patient is on CPAP pressure support trial at this time. We will follow her arterial blood gas and chest x-ray closely. The patient is being followed by Neurology and Keppra has been started. We will continue with bronchodilators as well as Pepcid, cefepime and doxycycline. We will continue to treat aggressively along with the other consultants and the primary care doctor. Sony Reyes MD [facility] # [id number]
--- NOTE | 2017-11-08 19:16 | PN ---
DATE: SUBJECTIVE: Patient is in bed, in no acute distress, nontoxic. PHYSICAL EXAMINATION: VITAL SIGNS: Temperature is 98, blood pressure is 140/80, respiratory rate of 20, heart rate of 86. HEENT: Unremarkable. NECK: Supple. LUNGS: Have decreased breath sounds. HEART: Normal S1, S2. ABDOMEN: Soft, nontender. Yesterday's events are noted. Patient is intubated on a ventilator now. LABORATORY DATA: Reveals white count of 4.3, hemoglobin of 7, platelets of 282. BUN is 62, creatinine is 4.4. Urinalysis is noted and valproic acid was 56 and microbiology is pending. Chest x-ray from yesterday is reviewed. progress note is reviewed. progress note is reviewed from today. ASSESSMENT AND PLAN: This is a 77-year-old female was seen earlier today in CCU 129, bed 6 with severe sepsis and respiratory failure, intubated on a ventilator with healthcare-associated pneumonia with acute injury on top of chronic kidney injury and a new episode seizures yesterday. Patient is now on meropenem and was given a dose of vancomycin. Pending pancultures, blood, urine, sputum and procalcitonin level and we will make further recommendations. Overall prognosis is quite poor for this patient has a dementia. Vineet Ford MD
[2017-11-09 01:12] LABS: ARTERIAL BLOOD GAS HCO3 27.3 mmol/L (21-28); ARTERIAL BLOOD GAS O2 CAPACITY 13.8 mL/dl (16-24); ARTERIAL BLOOD GAS O2 CONTENT 13.8 ML/dl (15-23); ARTERIAL BLOOD GAS O2 SAT 99.8 % (95-98); ARTERIAL BLOOD GAS PCO2 44 mm/Hg (35-45); ARTERIAL BLOOD GAS TCO2 28.7 mmol.L (22-28)
[2017-11-09] MEDS: Levalbuterol 0.63 MG/3 ML Inhal Soln UD IH SCH ×4 (01:20→21:00)
[2017-11-09] MEDS: Dextrose 5%/0.45% NS 1,000 ML IV SCH ×2 (01:54→16:54)
[2017-11-09 07:11] LABS: BASO # 0.01 K/mm3 (0.0-2.0); BASO % 0.2 % (0.0-3.0); EOS # 0.1 (0.0-0.7); EOS % 1.5 % (1.5-5.0); GRAN # 2.94 (1.4-6.5); GRAN % 62.3 % (50.0-68.0); LYMPH # 0.9 (1.2-3.4); LYMPH % 19.3 % (22.0-35.0); MEAN CELL VOLUME 93.6 fl (80.0-105.0); MEAN CORPUSCULAR HEMOGLOBIN 29.3 pg (25.0-35.0); MEAN CORPUSCULAR HGB CONC 31.3 g/dl (31.0-37.0); MEAN PLATELET VOLUME 10.3 fl (7.0-11.0); MONO # 0.8 (0.1-0.6); MONO % 16.7 % (1.0-6.0); RBC 4.09 10^6/uL (3.5-6.1); WHITE BLOOD COUNT 4.7 10^3/ul (4.5-11.0)
[2017-11-09 08:10] LABS: ALBUMIN 3.3 g/dL (3.0-4.8); CALCIUM 9.7 mg/dL (8.4-10.5); MAGNESIUM 1.9 mg/dL (1.7-2.2)
--- NOTE | 2017-11-09 08:11 | CP.CCUPN ---
<Lina Torres - Last Filed: 11/09/17 09:35> CCU Subjective - Physician Review Subjective (Free Text): 11/09/17 08:05 Patient was transferred over the weekend due to seizure like activity, was given Ativan 2 mg ivp, keppra which was switched over to depakote. No overnight acute events. Afebrile, and normotensive. Saturating 98-100% on prbc, fio2 of 35%, peep of 5, TV of 270. Patient is non verbal at baseline, sleepy, but awakes and opens her eyes with verbal command. No seizure like activity since being in the ICU. Critical Care Time Spent (in minutes): 45 CCU Objective - Vital Signs / Intake & Output Vital Signs (Last 4 hours): Vital Signs Pulse 11/09/17 06:00 74 Intake and Output (Last 8hrs): Intake & Output 11/08/17 11/09/17 11/09/17 22:59 06:59 14:59 Intake Total 1330 1400 Output Total 340 700 Balance 990 700 Weight 98 lb 1 oz Intake: IV 885 1075 IVPB 300 100 Left Upper arm 585 d5 0.5ns 325 prbc 650 Blood Product 325 325 Red Blood Cells Cpd As1 0 325 Lr Unit [id number] Red Blood Cells Cpd As1 325 Lr Unit [id number] Other 120 Output: Urine 340 700 Urethral (Basurto) 340 Urine, Voided 700 - Physical Exam Head: Positive for: Atraumatic, Normocephalic Pupils: Positive for: PERRL Extroacular Muscles: Positive for: EOMI Conjunctiva: Positive for: Normal Mouth: Positive for: Moist Mucous Membranes, Other (ETT) Neck: Positive for: Normal Range of Motion Respiratory/Chest: Positive for: Good Air Exchange, Other (+ Coarse breath sounds on vent. ). Negative for: Respiratory Distress, Accessory Muscle Use, Wheezes, Decreased Breath Sounds, Rales, Retracting, Rhonchi, Tachypneic Cardiovascular: Positive for: Regular Rate and Rhythm, Normal S1, S2, Bradycardic. Negative for: Murmurs, Tachycardic Abdomen: Positive for: Normal Bowel Sounds. Negative for: Tenderness, Distention, Peritoneal Signs, Mass/Organomegaly Back: Positive for: Normal Inspection Upper Extremity: Positive for: Normal Inspection. Negative for: Edema Lower Extremity: Positive for: Normal Inspection. Negative for: Edema Neurological: Negative for: Speech Normal (nonverbal), Other (no focal deficits) Skin: Positive for: Warm, Dry Psychiatric: Positive for: Alert, Other (awake, and follows command.) - Medications Active Medications: Active Medications Generic Name Dose Route Start Last Admin Trade Name Freq PRN Reason Stop Dose Admin Acetaminophen 650 mg 11/03/17 16:14 11/03/17 16:31 Tylenol 325mg Tab PO 650 mg Q4H PRN Administration Fever >100.4 F Calcium Acetate 667 mg 11/03/17 17:00 11/08/17 17:29 Phoslo PO 667 mg WM DAVID Administration Famotidine 20 mg 11/06/17 10:00 11/08/17 09:05 Pepcid PO 20 mg DAILY DAVID Administration Valproate Sodium 500 mg/ 105 mls @ 100 mls/hr 11/07/17 18:00 11/08/17 17:42 Sodium Chloride IVPB 100 mls/hr BID DAVID Administration Meropenem 250 mg/ Sodium 100 mls @ 100 mls/hr 11/07/17 18:15 11/09/17 06:12 Chloride IVPB 11/16/17 18:16 100 mls/hr Q12H DAVID Administration Protocol Dextrose/Sodium Chloride 1,000 mls @ 65 mls/hr 11/07/17 19:00 11/09/17 01:54 Dextrose 5%/0.45% Ns 1000 Ml IV 65 mls/hr .[id number] DAVID Administration Levalbuterol HCl 0.63 mg 11/07/17 14:00 11/09/17 07:45 Xopenex IH 0.63 mg [id number] DAVID Administration Levalbuterol HCl 0.63 mg 11/07/17 09:26 11/07/17 09:40 Xopenex IH 0.63 mg Q2 PRN Administration Shortness of Breath - Patient Studies Lab Studies: Microbiology Studies 11/07/17 00:10 Blood Culture - Preliminary Blood NO GROWTH AFTER 24 HOURS 11/07/17 00:00 Blood Culture - Preliminary Blood NO GROWTH AFTER 24 HOURS 11/08/17 09:00 Gram Stain - Final Sputum 11/03/17 16:30 Blood Culture - Final Blood-Venous NO GROWTH AFTER 5 DAYS Gram Stain - Final TEST NOT PERFORMED 11/03/17 16:30 Blood Culture - Final Blood-Venous NO GROWTH AFTER 5 DAYS Gram Stain - Final TEST NOT PERFORMED Lab Studies 11/09/17 11/09/17 11/09/17 Range/Units 05:30 01:42 01:00 WBC 4.7 (4.5-11.0) 10^3/ul RBC 4.09 (3.5-6.1) 10^6/uL Hgb 12.0 D (12.0-16.0) g/dL Hct 38.3 (36.0-48.0) % MCV 93.6 D (80.0-105.0) fl MCH 29.3 (25.0-35.0) pg MCHC 31.3 (31.0-37.0) g/dl RDW 17.0 H (11.5-14.5) % Plt Count 308 (120.0-450.0) 10^3/uL MPV 10.3 (7.0-11.0) fl Gran % 62.3 (50.0-68.0) % Lymph % (Auto) 19.3 L (22.0-35.0) % Collier % (Auto) 16.7 H (1.0-6.0) % Eos % (Auto) 1.5 (1.5-5.0) % Baso % (Auto) 0.2 (0.0-3.0) % Gran # 2.94 (1.4-6.5) Lymph # (Auto) 0.9 L (1.2-3.4) Collier # (Auto) 0.8 H (0.1-0.6) Eos # (Auto) 0.1 (0.0-0.7) Baso # (Auto) 0.01 (0.0-2.0) K/mm3 pCO2 44 (35-45) mm/Hg pO2 116.0 H (80-100) mm/Hg HCO3 27.3 (21-28) mmol/L ABG pH 7.40 (7.35-7.45) ABG Total CO2 28.7 H (22-28) mmol.L ABG O2 Saturation 99.8 H (95-98) % ABG O2 Content 13.8 L (15-23) ML/dl ABG Base Excess 2.2 (-2.0-3.0) mmol/L ABG Hemoglobin 10.0 L (11.7-17.4) g/dL ABG Carboxyhemoglobin 2.1 H (0.5-1.5) % POC ABG HHb (Measured) 0.2 (0-5) % ABG Methemoglobin 1.1 (0.0-3.0) % ABG O2 Capacity 13.8 L (16-24) mL/dl Hgb O2 Saturation 96.6 (95.0-98.0) % FiO2 35.0 % POC Glucose (mg/dL) 78 (65-110) mg/dL Procalcitonin (0.19-0.49) NG/ML Blood Type Blood Type Confirm Antibody Screen Crossmatch BBK History Checked 11/08/17 11/08/17 11/08/17 Range/Units 21:59 17:27 10:53 WBC (4.5-11.0) 10^3/ul RBC (3.5-6.1) 10^6/uL Hgb (12.0-16.0) g/dL Hct (36.0-48.0) % MCV (80.0-105.0) fl MCH (25.0-35.0) pg MCHC (31.0-37.0) g/dl RDW (11.5-14.5) % Plt Count (120.0-450.0) 10^3/uL MPV (7.0-11.0) fl Gran % (50.0-68.0) % Lymph % (Auto) (22.0-35.0) % Collier % (Auto) (1.0-6.0) % Eos % (Auto) (1.5-5.0) % Baso % (Auto) (0.0-3.0) % Gran # (1.4-6.5) Lymph # (Auto) (1.2-3.4) Collier # (Auto) (0.1-0.6) Eos # (Auto) (0.0-0.7) Baso # (Auto) (0.0-2.0) K/mm3 pCO2 (35-45) mm/Hg pO2 (80-100) mm/Hg HCO3 (21-28) mmol/L ABG pH (7.35-7.45) ABG Total CO2 (22-28) mmol.L ABG O2 Saturation (95-98) % ABG O2 Content (15-23) ML/dl ABG Base Excess (-2.0-3.0) mmol/L ABG Hemoglobin (11.7-17.4) g/dL ABG Carboxyhemoglobin (0.5-1.5) % POC ABG HHb (Measured) (0-5) % ABG Methemoglobin (0.0-3.0) % ABG O2 Capacity (16-24) mL/dl Hgb O2 Saturation (95.0-98.0) % FiO2 % POC Glucose (mg/dL) 72 119 H 80 (65-110) mg/dL Procalcitonin (0.19-0.49) NG/ML Blood Type Blood Type Confirm Antibody Screen Crossmatch BBK History Checked 11/08/17 11/08/17 11/08/17 Range/Units 09:55 08:30 08:30 WBC (4.5-11.0) 10^3/ul RBC (3.5-6.1) 10^6/uL Hgb 7.4 L (12.0-16.0) g/dL Hct 24.4 L (36.0-48.0) % MCV (80.0-105.0) fl MCH (25.0-35.0) pg MCHC (31.0-37.0) g/dl RDW (11.5-14.5) % Plt Count (120.0-450.0) 10^3/uL MPV (7.0-11.0) fl Gran % (50.0-68.0) % Lymph % (Auto) (22.0-35.0) % Collier % (Auto) (1.0-6.0) % Eos % (Auto) (1.5-5.0) % Baso % (Auto) (0.0-3.0) % Gran # (1.4-6.5) Lymph # (Auto) (1.2-3.4) Collier # (Auto) (0.1-0.6) Eos # (Auto) (0.0-0.7) Baso # (Auto) (0.0-2.0) K/mm3 pCO2 (35-45) mm/Hg pO2 (80-100) mm/Hg HCO3 (21-28) mmol/L ABG pH (7.35-7.45) ABG Total CO2 (22-28) mmol.L ABG O2 Saturation (95-98) % ABG O2 Content (15-23) ML/dl ABG Base Excess (-2.0-3.0) mmol/L ABG Hemoglobin (11.7-17.4) g/dL ABG Carboxyhemoglobin (0.5-1.5) % POC ABG HHb (Measured) (0-5) % ABG Methemoglobin (0.0-3.0) % ABG O2 Capacity (16-24) mL/dl Hgb O2 Saturation (95.0-98.0) % FiO2 % POC Glucose (mg/dL) (65-110) mg/dL Procalcitonin (0.19-0.49) NG/ML Blood Type O POSITIVE Blood Type Confirm O POSITIVE Antibody Screen Negative Crossmatch See Detail BBK History Checked No verified bt 11/07/17 Range/Units 18:00 WBC (4.5-11.0) 10^3/ul RBC (3.5-6.1) 10^6/uL Hgb (12.0-16.0) g/dL Hct (36.0-48.0) % MCV (80.0-105.0) fl MCH (25.0-35.0) pg MCHC (31.0-37.0) g/dl RDW (11.5-14.5) % Plt Count (120.0-450.0) 10^3/uL MPV (7.0-11.0) fl Gran % (50.0-68.0) % Lymph % (Auto) (22.0-35.0) % Collier % (Auto) (1.0-6.0) % Eos % (Auto) (1.5-5.0) % Baso % (Auto) (0.0-3.0) % Gran # (1.4-6.5) Lymph # (Auto) (1.2-3.4) Collier # (Auto) (0.1-0.6) Eos # (Auto) (0.0-0.7) Baso # (Auto) (0.0-2.0) K/mm3 pCO2 (35-45) mm/Hg pO2 (80-100) mm/Hg HCO3 (21-28) mmol/L ABG pH (7.35-7.45) ABG Total CO2 (22-28) mmol.L ABG O2 Saturation (95-98) % ABG O2 Content (15-23) ML/dl ABG Base Excess (-2.0-3.0) mmol/L ABG Hemoglobin (11.7-17.4) g/dL ABG Carboxyhemoglobin (0.5-1.5) % POC ABG HHb (Measured) (0-5) % ABG Methemoglobin (0.0-3.0) % ABG O2 Capacity (16-24) mL/dl Hgb O2 Saturation (95.0-98.0) % FiO2 % POC Glucose (mg/dL) (65-110) mg/dL Procalcitonin 2.47 H (0.19-0.49) NG/ML Blood Type Blood Type Confirm Antibody Screen Crossmatch BBK History Checked Laboratory Results - last 24 hr 11/07/17 11/08/17 11/08/17 18:00 08:30 08:30 WBC RBC Hgb 7.4 L Hct 24.4 L MCV MCH MCHC RDW Plt Count MPV Gran % Lymph % (Auto) Collier % (Auto) Eos % (Auto) Baso % (Auto) Gran # Lymph # (Auto) Collier # (Auto) Eos # (Auto) Baso # (Auto) pCO2 pO2 HCO3 ABG pH ABG Total CO2 ABG O2 Saturation ABG O2 Content ABG Base Excess ABG Hemoglobin ABG Carboxyhemoglobin POC ABG HHb (Measured) ABG Methemoglobin ABG O2 Capacity Hgb O2 Saturation FiO2 POC Glucose (mg/dL) Procalcitonin 2.47 H Blood Type O POSITIVE Blood Type Confirm Antibody Screen Negative Crossmatch See Detail BBK History Checked No verified bt 11/08/17 11/08/17 11/08/17 09:55 10:53 17:27 WBC RBC Hgb Hct MCV MCH MCHC RDW Plt Count MPV Gran % Lymph % (Auto) Collier % (Auto) Eos % (Auto) Baso % (Auto) Gran # Lymph # (Auto) Collier # (Auto) Eos # (Auto) Baso # (Auto) pCO2 pO2 HCO3 ABG pH ABG Total CO2 ABG O2 Saturation ABG O2 Content ABG Base Excess ABG Hemoglobin ABG Carboxyhemoglobin POC ABG HHb (Measured) ABG Methemoglobin ABG O2 Capacity Hgb O2 Saturation FiO2 POC Glucose (mg/dL) 80 119 H Procalcitonin Blood Type Blood Type Confirm O POSITIVE Antibody Screen Crossmatch BBK History Checked 11/08/17 11/09/17 11/09/17 21:59 01:00 01:42 WBC RBC Hgb Hct MCV MCH MCHC RDW Plt Count MPV Gran % Lymph % (Auto) Collier % (Auto) Eos % (Auto) Baso % (Auto) Gran # Lymph # (Auto) Collier # (Auto) Eos # (Auto) Baso # (Auto) pCO2 44 pO2 116.0 H HCO3 27.3 ABG pH 7.40 ABG Total CO2 28.7 H ABG O2 Saturation 99.8 H ABG O2 Content 13.8 L ABG Base Excess 2.2 ABG Hemoglobin 10.0 L ABG Carboxyhemoglobin 2.1 H POC ABG HHb (Measured) 0.2 ABG Methemoglobin 1.1 ABG O2 Capacity 13.8 L Hgb O2 Saturation 96.6 FiO2 35.0 POC Glucose (mg/dL) 72 78 Procalcitonin Blood Type Blood Type Confirm Antibody Screen Crossmatch BBK History Checked 11/09/17 05:30 WBC 4.7 RBC 4.09 Hgb 12.0 D Hct 38.3 MCV 93.6 D MCH 29.3 MCHC 31.3 RDW 17.0 H Plt Count 308 MPV 10.3 Gran % 62.3 Lymph % (Auto) 19.3 L Collier % (Auto) 16.7 H Eos % (Auto) 1.5 Baso % (Auto) 0.2 Gran # 2.94 Lymph # (Auto) 0.9 L Collier # (Auto) 0.8 H Eos # (Auto) 0.1 Baso # (Auto) 0.01 pCO2 pO2 HCO3 ABG pH ABG Total CO2 ABG O2 Saturation ABG O2 Content ABG Base Excess ABG Hemoglobin ABG Carboxyhemoglobin POC ABG HHb (Measured) ABG Methemoglobin ABG O2 Capacity Hgb O2 Saturation FiO2 POC Glucose (mg/dL) Procalcitonin Blood Type Blood Type Confirm Antibody Screen Crossmatch BBK History Checked Fingerstick Blood Sugar Results: 72 Results Reviewed to Date: Yes Critical Care Progress Note - Ventilator Checklist Head of Bed 30 Degrees: Yes Daily Sedation Vacation: Yes Daily Assessment of Readiness to Wean: Yes Daily Spontaneous Breathing Trial: Yes PUD Prophalyxis: Yes DVT Prophylaxis: Yes Oral Care with Chlorhexidine Gluconate {CHG}: Yes - Vent Settings MODE:: PRVC TIDAL VOLUME:: 270 RESP RATE:: 20 FIO2:: 35 PEEP:: 5 - Extremities/Vascular Does the Patient have a Central Venous Catheter?: No - Restraints Justification for Restraints: High risk for self extubation - Prophylaxis GI Prophylaxis GI: Pepsid - Prophylaxis DVT Prophylaxis DVT: Heparin SQ - Nutrition Nutrition: Nutrition Category Date Time Status NPO Diet [DIET] Diets 11/07/17 Breakfast Ordered Assessment/Plan - Assessment and Plan (Free Text) Assessment: Patient is a 77 y/o with pmhx of dementia, copd, htn, ckd questionable cva who was recently discharged from [facility] s/p hypercapneic respiratory failure s/p intubation and extubation and discharged to rehab, was readmitted to due weakness and lethargy. Patient was found to have hypernatremia due to dehydration with AVERY on ckd stage 5, for which patient was transferred to [facility]. On [facility] patient was noted to have seizure like activity and AMS, had to be intubated for airway protection. Patient is also being treated for sepsis likely due to pneumonia and uti. Plan: Neurology: Patient had episode of seizure like activity on the floor. - patient is on valproate iv - CT head with no acute ischemic changes. - Patient becoming more agitated, will start propofol sedation - Neurology following, - Pending EEG Pulm- h/o COPD with chronic CO2 retention, s/p intubated for airway protection - ABG reviewed with improved PCO2 and po2 on fio2 35%, peep of 5. tv 270. - Continue with protected lung ventilation strategies, pulm toileting, head of bead elevation above 35 degrees. - Continue with bronchodilators. Cardio: Patient is hemodynamically stable Will monitor and maintain MAP above 65% Renal: Avery on ckd stage 5- creatinine is stable, nephrology is following Endo: On D5 1/2 NS due to npo status, and to avoid hypoglycemia. Heme: Chronic anemia- patient had hemoglobin of 7.7 yesterday, s/p 2 units of prbc yesterday with hgb of 12 this AM. - Will continue to monitor ID: Sepsis with UTI and pneumonia as the possible source. BCx with nop growth , urine culture with enterococcus feacalis. repeat chest x-ray with resolution of pneumonia Continue with merrem for uti. ID following. GI: Will consider tube feeding if patient remains intubated. On pepcid for Gi prophylaxis. DVT prophylaxis: heparin sc. Patient seen, examined and case discussed with Dr Staples - Date & Time Date: 11/09/17 Time: 08:20 <Fantasma Staples - Last Filed: 11/09/17 11:00> CCU Objective - Vital Signs / Intake & Output Vital Signs (Last 4 hours): Vital Signs Pulse BP Pulse Ox 11/09/17 10:00 68 149/95 H 100 11/09/17 09:09 149/104 H 95 11/09/17 09:04 119 H 226/135 H 59 L 11/09/17 09:02 143 H 224/150 H 74 L 11/09/17 08:00 62 147/90 100 11/09/17 07:00 68 146/90 97 Intake and Output (Last 8hrs): Intake & Output 11/08/17 11/09/17 11/09/17 22:59 06:59 14:59 Intake Total 1330 1400 Output Total 340 700 Balance 990 700 Weight 98 lb 1 oz Intake: IV 885 1075 IVPB 300 100 Left Upper arm 585 d5 0.5ns 325 prbc 650 Blood Product 325 325 Red Blood Cells Cpd As1 0 325 Lr Unit [id number] Red Blood Cells Cpd As1 325 Lr Unit [id number] Other 120 Output: Urine 340 700 Urethral (Basurto) 340 Urine, Voided 700 - Medications Active Medications: Active Medications Generic Name Dose Route Start Last Admin Trade Name Freq PRN Reason Stop Dose Admin Acetaminophen 650 mg 11/03/17 16:14 11/03/17 16:31 Tylenol 325mg Tab PO 650 mg Q4H PRN Administration Fever >100.4 F Calcium Acetate 667 mg 11/03/17 17:00 11/09/17 08:10 Phoslo PO 667 mg WM DAVID Administration Famotidine 20 mg 11/09/17 10:00 11/09/17 10:10 Pepcid IVP 20 mg DAILY DAVID Administration Heparin Sodium (Porcine) 5,000 units 11/09/17 10:00 11/09/17 10:10 Heparin SC 5,000 units Q12 DAVID Administration Protocol Valproate Sodium 500 mg/ 105 mls @ 100 mls/hr 11/07/17 18:00 11/09/17 10:10 Sodium Chloride IVPB 100 mls/hr BID DAVID Administration Meropenem 250 mg/ Sodium 100 mls @ 100 mls/hr 11/07/17 18:15 11/09/17 06:12 Chloride IVPB 11/16/17 18:16 100 mls/hr Q12H DAVID Administration Protocol Dextrose/Sodium Chloride 1,000 mls @ 65 mls/hr 11/07/17 19:00 11/09/17 01:54 Dextrose 5%/0.45% Ns 1000 Ml IV 65 mls/hr .[id number] DAVID Administration Propofol 1,000 mg in 100 mls @ 1.334 mls/hr 11/09/17 09:06 Diprivan IV .Q24H PRN TITRATE PER MD ORDER Protocol 5 MCG/KG/MIN Levalbuterol HCl 0.63 mg 11/07/17 14:00 11/09/17 07:45 Xopenex IH 0.63 mg [id number] DAVID Administration Levalbuterol HCl 0.63 mg 11/07/17 09:26 11/07/17 09:40 Xopenex IH 0.63 mg Q2 PRN Administration Shortness of Breath - Patient Studies Lab Studies: Microbiology Studies 11/07/17 01:55 Urine Culture - Final Urine No Growth (<1,000 CFU/ML) 11/07/17 00:10 Blood Culture - Preliminary Blood NO GROWTH AFTER 24 HOURS 11/07/17 00:00 Blood Culture - Preliminary Blood NO GROWTH AFTER 24 HOURS 11/08/17 09:00 Gram Stain - Final Sputum 11/03/17 16:30 Blood Culture - Final Blood-Venous NO GROWTH AFTER 5 DAYS Gram Stain - Final TEST NOT PERFORMED 11/03/17 16:30 Blood Culture - Final Blood-Venous NO GROWTH AFTER 5 DAYS Gram Stain - Final TEST NOT PERFORMED Lab Studies 11/09/17 11/09/17 11/09/17 Range/Units 05:30 05:30 01:42 WBC 4.7 (4.5-11.0) 10^3/ul RBC 4.09 (3.5-6.1) 10^6/uL Hgb 12.0 D (12.0-16.0) g/dL Hct 38.3 (36.0-48.0) % MCV 93.6 D (80.0-105.0) fl MCH 29.3 (25.0-35.0) pg MCHC 31.3 (31.0-37.0) g/dl RDW 17.0 H (11.5-14.5) % Plt Count 308 (120.0-450.0) 10^3/uL MPV 10.3 (7.0-11.0) fl Gran % 62.3 (50.0-68.0) % Lymph % (Auto) 19.3 L (22.0-35.0) % Collier % (Auto) 16.7 H (1.0-6.0) % Eos % (Auto) 1.5 (1.5-5.0) % Baso % (Auto) 0.2 (0.0-3.0) % Gran # 2.94 (1.4-6.5) Lymph # (Auto) 0.9 L (1.2-3.4) Collier # (Auto) 0.8 H (0.1-0.6) Eos # (Auto) 0.1 (0.0-0.7) Baso # (Auto) 0.01 (0.0-2.0) K/mm3 pCO2 (35-45) mm/Hg pO2 (80-100) mm/Hg HCO3 (21-28) mmol/L ABG pH (7.35-7.45) ABG Total CO2 (22-28) mmol.L ABG O2 Saturation (95-98) % ABG O2 Content (15-23) ML/dl ABG Base Excess (-2.0-3.0) mmol/L ABG Hemoglobin (11.7-17.4) g/dL ABG Carboxyhemoglobin (0.5-1.5) % POC ABG HHb (Measured) (0-5) % ABG Methemoglobin (0.0-3.0) % ABG O2 Capacity (16-24) mL/dl Hgb O2 Saturation (95.0-98.0) % FiO2 % Sodium 146 (132-148) mmol/L Potassium 4.1 (3.6-5.0) mmol/L Chloride 106 (98-107) mmol/L Carbon Dioxide 27 (21-33) mmol/L Anion Gap 18 (10-20) BUN 53 H (7-21) mg/dL Creatinine 4.3 H (0.7-1.2) mg/dl Est GFR ( Amer) 12 Est GFR (Non-Af Amer) 10 POC Glucose (mg/dL) 78 (65-110) mg/dL Random Glucose 85 (70-110) mg/dL Calcium 9.7 (8.4-10.5) mg/dL Phosphorus 3.3 (2.5-4.5) mg/dL Magnesium 1.9 (1.7-2.2) mg/dL Total Bilirubin 0.6 (0.2-1.3) mg/dL AST 33 (14-36) U/L ALT 29 (7-56) U/L Alkaline Phosphatase 108 (38-126) U/L Total Protein 6.8 (5.8-8.3) g/dL Albumin 3.3 (3.0-4.8) g/dL Globulin 3.4 gm/dL Albumin/Globulin Ratio 1.0 L (1.1-1.8) Procalcitonin (0.19-0.49) NG/ML Blood Type Blood Type Confirm Antibody Screen Crossmatch BBK History Checked 11/09/17 11/08/17 11/08/17 Range/Units 01:00 21:59 17:27 WBC (4.5-11.0) 10^3/ul RBC (3.5-6.1) 10^6/uL Hgb (12.0-16.0) g/dL Hct (36.0-48.0) % MCV (80.0-105.0) fl MCH (25.0-35.0) pg MCHC (31.0-37.0) g/dl RDW (11.5-14.5) % Plt Count (120.0-450.0) 10^3/uL MPV (7.0-11.0) fl Gran % (50.0-68.0) % Lymph % (Auto) (22.0-35.0) % Collier % (Auto) (1.0-6.0) % Eos % (Auto) (1.5-5.0) % Baso % (Auto) (0.0-3.0) % Gran # (1.4-6.5) Lymph # (Auto) (1.2-3.4) Collier # (Auto) (0.1-0.6) Eos # (Auto) (0.0-0.7) Baso # (Auto) (0.0-2.0) K/mm3 pCO2 44 (35-45) mm/Hg pO2 116.0 H (80-100) mm/Hg HCO3 27.3 (21-28) mmol/L ABG pH 7.40 (7.35-7.45) ABG Total CO2 28.7 H (22-28) mmol.L ABG O2 Saturation 99.8 H (95-98) % ABG O2 Content 13.8 L (15-23) ML/dl ABG Base Excess 2.2 (-2.0-3.0) mmol/L ABG Hemoglobin 10.0 L (11.7-17.4) g/dL ABG Carboxyhemoglobin 2.1 H (0.5-1.5) % POC ABG HHb (Measured) 0.2 (0-5) % ABG Methemoglobin 1.1 (0.0-3.0) % ABG O2 Capacity 13.8 L (16-24) mL/dl Hgb O2 Saturation 96.6 (95.0-98.0) % FiO2 35.0 % Sodium (132-148) mmol/L Potassium (3.6-5.0) mmol/L Chloride (98-107) mmol/L Carbon Dioxide (21-33) mmol/L Anion Gap (10-20) BUN (7-21) mg/dL Creatinine (0.7-1.2) mg/dl Est GFR ( Amer) Est GFR (Non-Af Amer) POC Glucose (mg/dL) 72 119 H (65-110) mg/dL Random Glucose (70-110) mg/dL Calcium (8.4-10.5) mg/dL Phosphorus (2.5-4.5) mg/dL Magnesium (1.7-2.2) mg/dL Total Bilirubin (0.2-1.3) mg/dL AST (14-36) U/L ALT (7-56) U/L Alkaline Phosphatase (38-126) U/L Total Protein (5.8-8.3) g/dL Albumin (3.0-4.8) g/dL Globulin gm/dL Albumin/Globulin Ratio (1.1-1.8) Procalcitonin (0.19-0.49) NG/ML Blood Type Blood Type Confirm Antibody Screen Crossmatch BBK History Checked 11/08/17 11/08/17 11/08/17 Range/Units 10:53 09:55 08:30 WBC (4.5-11.0) 10^3/ul RBC (3.5-6.1) 10^6/uL Hgb (12.0-16.0) g/dL Hct (36.0-48.0) % MCV (80.0-105.0) fl MCH (25.0-35.0) pg MCHC (31.0-37.0) g/dl RDW (11.5-14.5) % Plt Count (120.0-450.0) 10^3/uL MPV (7.0-11.0) fl Gran % (50.0-68.0) % Lymph % (Auto) (22.0-35.0) % Collier % (Auto) (1.0-6.0) % Eos % (Auto) (1.5-5.0) % Baso % (Auto) (0.0-3.0) % Gran # (1.4-6.5) Lymph # (Auto) (1.2-3.4) Collier # (Auto) (0.1-0.6) Eos # (Auto) (0.0-0.7) Baso # (Auto) (0.0-2.0) K/mm3 pCO2 (35-45) mm/Hg pO2 (80-100) mm/Hg HCO3 (21-28) mmol/L ABG pH (7.35-7.45) ABG Total CO2 (22-28) mmol.L ABG O2 Saturation (95-98) % ABG O2 Content (15-23) ML/dl ABG Base Excess (-2.0-3.0) mmol/L ABG Hemoglobin (11.7-17.4) g/dL ABG Carboxyhemoglobin (0.5-1.5) % POC ABG HHb (Measured) (0-5) % ABG Methemoglobin (0.0-3.0) % ABG O2 Capacity (16-24) mL/dl Hgb O2 Saturation (95.0-98.0) % FiO2 % Sodium (132-148) mmol/L Potassium (3.6-5.0) mmol/L Chloride (98-107) mmol/L Carbon Dioxide (21-33) mmol/L Anion Gap (10-20) BUN (7-21) mg/dL Creatinine (0.7-1.2) mg/dl Est GFR ( Amer) Est GFR (Non-Af Amer) POC Glucose (mg/dL) 80 (65-110) mg/dL Random Glucose (70-110) mg/dL Calcium (8.4-10.5) mg/dL Phosphorus (2.5-4.5) mg/dL Magnesium (1.7-2.2) mg/dL Total Bilirubin (0.2-1.3) mg/dL AST (14-36) U/L ALT (7-56) U/L Alkaline Phosphatase (38-126) U/L Total Protein (5.8-8.3) g/dL Albumin (3.0-4.8) g/dL Globulin gm/dL Albumin/Globulin Ratio (1.1-1.8) Procalcitonin (0.19-0.49) NG/ML Blood Type O POSITIVE Blood Type Confirm O POSITIVE Antibody Screen Negative Crossmatch See Detail BBK History Checked No verified bt 11/07/17 Range/Units 18:00 WBC (4.5-11.0) 10^3/ul RBC (3.5-6.1) 10^6/uL Hgb (12.0-16.0) g/dL Hct (36.0-48.0) % MCV (80.0-105.0) fl MCH (25.0-35.0) pg MCHC (31.0-37.0) g/dl RDW (11.5-14.5) % Plt Count (120.0-450.0) 10^3/uL MPV (7.0-11.0) fl Gran % (50.0-68.0) % Lymph % (Auto) (22.0-35.0) % Collier % (Auto) (1.0-6.0) % Eos % (Auto) (1.5-5.0) % Baso % (Auto) (0.0-3.0) % Gran # (1.4-6.5) Lymph # (Auto) (1.2-3.4) Collier # (Auto) (0.1-0.6) Eos # (Auto) (0.0-0.7) Baso # (Auto) (0.0-2.0) K/mm3 pCO2 (35-45) mm/Hg pO2 (80-100) mm/Hg HCO3 (21-28) mmol/L ABG pH (7.35-7.45) ABG Total CO2 (22-28) mmol.L ABG O2 Saturation (95-98) % ABG O2 Content (15-23) ML/dl ABG Base Excess (-2.0-3.0) mmol/L ABG Hemoglobin (11.7-17.4) g/dL ABG Carboxyhemoglobin (0.5-1.5) % POC ABG HHb (Measured) (0-5) % ABG Methemoglobin (0.0-3.0) % ABG O2 Capacity (16-24) mL/dl Hgb O2 Saturation (95.0-98.0) % FiO2 % Sodium (132-148) mmol/L Potassium (3.6-5.0) mmol/L Chloride (98-107) mmol/L Carbon Dioxide (21-33) mmol/L Anion Gap (10-20) BUN (7-21) mg/dL Creatinine (0.7-1.2) mg/dl Est GFR ( Amer) Est GFR (Non-Af Amer) POC Glucose (mg/dL) (65-110) mg/dL Random Glucose (70-110) mg/dL Calcium (8.4-10.5) mg/dL Phosphorus (2.5-4.5) mg/dL Magnesium (1.7-2.2) mg/dL Total Bilirubin (0.2-1.3) mg/dL AST (14-36) U/L ALT (7-56) U/L Alkaline Phosphatase (38-126) U/L Total Protein (5.8-8.3) g/dL Albumin (3.0-4.8) g/dL Globulin gm/dL Albumin/Globulin Ratio (1.1-1.8) Procalcitonin 2.47 H (0.19-0.49) NG/ML Blood Type Blood Type Confirm Antibody Screen Crossmatch BBK History Checked Laboratory Results - last 24 hr 11/07/17 11/08/17 11/08/17 18:00 08:30 09:55 WBC RBC Hgb Hct MCV MCH MCHC RDW Plt Count MPV Gran % Lymph % (Auto) Collier % (Auto) Eos % (Auto) Baso % (Auto) Gran # Lymph # (Auto) Collier # (Auto) Eos # (Auto) Baso # (Auto) pCO2 pO2 HCO3 ABG pH ABG Total CO2 ABG O2 Saturation ABG O2 Content ABG Base Excess ABG Hemoglobin ABG Carboxyhemoglobin POC ABG HHb (Measured) ABG Methemoglobin ABG O2 Capacity Hgb O2 Saturation FiO2 Sodium Potassium Chloride Carbon Dioxide Anion Gap BUN Creatinine Est GFR ( Amer) Est GFR (Non-Af Amer) POC Glucose (mg/dL) Random Glucose Calcium Phosphorus Magnesium Total Bilirubin AST ALT Alkaline Phosphatase Total Protein Albumin Globulin Albumin/Globulin Ratio Procalcitonin 2.47 H Blood Type O POSITIVE Blood Type Confirm O POSITIVE Antibody Screen Negative Crossmatch See Detail BBK History Checked No verified bt 11/08/17 11/08/17 11/08/17 10:53 17:27 21:59 WBC RBC Hgb Hct MCV MCH MCHC RDW Plt Count MPV Gran % Lymph % (Auto) Collier % (Auto) Eos % (Auto) Baso % (Auto) Gran # Lymph # (Auto) Collier # (Auto) Eos # (Auto) Baso # (Auto) pCO2 pO2 HCO3 ABG pH ABG Total CO2 ABG O2 Saturation ABG O2 Content ABG Base Excess ABG Hemoglobin ABG Carboxyhemoglobin POC ABG HHb (Measured) ABG Methemoglobin ABG O2 Capacity Hgb O2 Saturation FiO2 Sodium Potassium Chloride Carbon Dioxide Anion Gap BUN Creatinine Est GFR ( Amer) Est GFR (Non-Af Amer) POC Glucose (mg/dL) 80 119 H 72 Random Glucose Calcium Phosphorus Magnesium Total Bilirubin AST ALT Alkaline Phosphatase Total Protein Albumin Globulin Albumin/Globulin Ratio Procalcitonin Blood Type Blood Type Confirm Antibody Screen Crossmatch BBK History Checked 11/09/17 11/09/17 11/09/17 01:00 01:42 05:30 WBC 4.7 RBC 4.09 Hgb 12.0 D Hct 38.3 MCV 93.6 D MCH 29.3 MCHC 31.3 RDW 17.0 H Plt Count 308 MPV 10.3 Gran % 62.3 Lymph % (Auto) 19.3 L Collier % (Auto) 16.7 H Eos % (Auto) 1.5 Baso % (Auto) 0.2 Gran # 2.94 Lymph # (Auto) 0.9 L Collier # (Auto) 0.8 H Eos # (Auto) 0.1 Baso # (Auto) 0.01 pCO2 44 pO2 116.0 H HCO3 27.3 ABG pH 7.40 ABG Total CO2 28.7 H ABG O2 Saturation 99.8 H ABG O2 Content 13.8 L ABG Base Excess 2.2 ABG Hemoglobin 10.0 L ABG Carboxyhemoglobin 2.1 H POC ABG HHb (Measured) 0.2 ABG Methemoglobin 1.1 ABG O2 Capacity 13.8 L Hgb O2 Saturation 96.6 FiO2 35.0 Sodium Potassium Chloride Carbon Dioxide Anion Gap BUN Creatinine Est GFR ( Amer) Est GFR (Non-Af Amer) POC Glucose (mg/dL) 78 Random Glucose Calcium Phosphorus Magnesium Total Bilirubin AST ALT Alkaline Phosphatase Total Protein Albumin Globulin Albumin/Globulin Ratio Procalcitonin Blood Type Blood Type Confirm Antibody Screen Crossmatch BBK History Checked 11/09/17 05:30 WBC RBC Hgb Hct MCV MCH MCHC RDW Plt Count MPV Gran % Lymph % (Auto) Collier % (Auto) Eos % (Auto) Baso % (Auto) Gran # Lymph # (Auto) Collier # (Auto) Eos # (Auto) Baso # (Auto) pCO2 pO2 HCO3 ABG pH ABG Total CO2 ABG O2 Saturation ABG O2 Content ABG Base Excess ABG Hemoglobin ABG Carboxyhemoglobin POC ABG HHb (Measured) ABG Methemoglobin ABG O2 Capacity Hgb O2 Saturation FiO2 Sodium 146 Potassium 4.1 Chloride 106 Carbon Dioxide 27 Anion Gap 18 BUN 53 H Creatinine 4.3 H Est GFR ( Amer) 12 Est GFR (Non-Af Amer) 10 POC Glucose (mg/dL) Random Glucose 85 Calcium 9.7 Phosphorus 3.3 Magnesium 1.9 Total Bilirubin 0.6 AST 33 ALT 29 Alkaline Phosphatase 108 Total Protein 6.8 Albumin 3.3 Globulin 3.4 Albumin/Globulin Ratio 1.0 L Procalcitonin Blood Type Blood Type Confirm Antibody Screen Crossmatch BBK History Checked Critical Care Progress Note - Nutrition Nutrition: Nutrition Category Date Time Status NPO Diet [DIET] Diets 11/07/17 Breakfast Ordered Assessment/Plan - Assessment and Plan (Free Text) Plan: Pt seen and examined on rounds with resident, agree with note with following additions/exceptions: 77yo female with PMHx of CKD, COPD, Dementia, CVA, a/w AMS, seizure activity, intubated AMS/Seizure Lethargy Hypernatremia Dehydration Acute on Chronic renal failure COPD - currently afebrile, HD stable, comfortable, placed on CPAP trial today, failed (could not follow commands, tachypnea) - labs with hypernatremia, that is improving, HH stable - CT head without contrast negative for acute findings Recommend: - cont with ventilatory support, low tidal vol ventilation, daily sedation vacation, daily ABG - antibiotics as per ID - follow up cultures - BP control - NPO, if remains intubated will start feeds - check TSH, Ulytes - IVF, D5W @ 75cc/hr, Na improving - EEG - cont with Depakote as per Neuro - follow up Neuro - FS control - GI ppx - DVT ppx - Monitor in MICU [facility] care time 40 minutes
[2017-11-09] MEDS ORDERED: Propofol 10 mg/ml 1,000 MG/100 ML VIAL IV PRN (09:06)
--- NOTE | 2017-11-09 10:05 | RAD ---
HISTORY: intubated COMPARISON: 11/07/2017 FINDINGS: LUNGS: No active pulmonary disease. PLEURA: No significant pleural effusion identified, no pneumothorax apparent. CARDIOVASCULAR: Normal. OSSEOUS STRUCTURES: No significant abnormalities. VISUALIZED UPPER ABDOMEN: Normal. OTHER FINDINGS: The endotracheal and nasogastric tubes are in satisfactory position IMPRESSION: No active disease.
[2017-11-09] MEDS: Valproate 500 MG in Sodium Chloride 0.9% 100 ML IVPB SCH ×2 (10:10→18:47)
--- NOTE | 2017-11-09 10:31 | CP.PCM.PN ---
Subjective - Date & Time of Evaluation Date of Evaluation: 11/09/17 Time of Evaluation: 10:00 - Subjective Subjective: On the ventilator, responds to painful stimuli, no fevers overnight. Objective - Vital Signs/Intake and Output Vital Signs (last 24 hours): Temp Pulse Resp BP Pulse Ox 98.1 F 74 20 128/69 100 11/09/17 01:15 11/09/17 06:00 11/09/17 01:15 11/09/17 03:00 11/09/17 02:59 Intake and Output: 11/09/17 11/09/17 06:59 18:59 Intake Total 1725 Output Total 700 Balance 1025 - Medications Medications: Current Medications Acetaminophen (Tylenol 325mg Tab) 650 mg PO Q4H PRN PRN Reason: Fever >100.4 F Last Admin: 11/03/17 16:31 Dose: 650 mg Calcium Acetate (Phoslo) 667 mg PO [facility] Last Admin: 11/08/17 17:29 Dose: 667 mg Famotidine (Pepcid) 20 mg PO DAILY [facility] Last Admin: 11/08/17 09:05 Dose: 20 mg Heparin Sodium (Porcine) (Heparin) 5,000 units SC Q12 DAVID PRN Reason: Protocol Valproate Sodium 500 mg/ (Sodium Chloride) 105 mls @ 100 mls/hr IVPB BID [facility] Last Admin: 11/08/17 17:42 Dose: 100 mls/hr Meropenem 250 mg/ Sodium (Chloride) 100 mls @ 100 mls/hr IVPB Q12H [facility] PRN Reason: Protocol Stop: 11/16/17 18:16 Last Admin: 11/09/17 06:12 Dose: 100 mls/hr Dextrose/Sodium Chloride (Dextrose 5%/0.45% Ns 1000 Ml) 1,000 mls @ 65 mls/hr IV .[id number] [facility] Last Admin: 11/09/17 01:54 Dose: 65 mls/hr Propofol (Diprivan) 1,000 mg in 100 mls @ 1.334 mls/hr IV .Q24H PRN; Protocol; 5 MCG/KG/MIN PRN Reason: TITRATE PER MD ORDER Levalbuterol HCl (Xopenex) 0.63 mg IH [id number] [facility] Last Admin: 11/09/17 07:45 Dose: 0.63 mg Levalbuterol HCl (Xopenex) 0.63 mg IH Q2 PRN PRN Reason: Shortness of Breath Last Admin: 11/07/17 09:40 Dose: 0.63 mg - Labs Labs: 11/09/17 05:30 11/09/17 05:30 PT 11.8 SECONDS (9.4-12.5) 11/08/17 04:00 INR 1.03 (0.93-1.08) 11/08/17 04:00 APTT 34.6 Seconds (25.1-36.5) 11/08/17 04:00 - Constitutional Appears: Other (on the vent, sedated) - Head Exam Head Exam: NORMAL INSPECTION - ENT Exam Additional comments: ET tube in place - Respiratory Exam Respiratory Exam: Decreased Breath Sounds - Cardiovascular Exam Cardiovascular Exam: +S1, +S2 - GI/Abdominal Exam GI & Abdominal Exam: Soft. absent: Tenderness - Extremities Exam Additional comments: left arm central venous catheter in place Assessment and Plan - Assessment and Plan (Free Text) Plan: Assessment severe sepsis with VDRF due to HCAP with acute renal failure new onset seizures Plan Continue Merrem day 2 and has been given a dose of IV Vancomycin pending final culture results; PCT is elevated but is not accurate since patient has renal failure will monitor if patient again has a seizure episode - will consider changing Merrem to another antibiotic if the patient does overall prognosis is poor
--- NOTE | 2017-11-09 12:13 | CP.PCM.PN ---
Subjective - Date & Time of Evaluation Date of Evaluation: 11/09/17 Time of Evaluation: 09:40 - Subjective Subjective: Neuro Progress note: Pt seen and examined at bedside. No acute events overnight. Pt is currently intubated. Pupils are reactive, moves all extremities to pain, does not open eyes, minimal response to verbal stimulus at this time. 12 Point ROS performed and negative other than stated above. Objective - Vital Signs/Intake and Output Vital Signs (last 24 hours): Temp Pulse Resp BP Pulse Ox 98.1 F 68 20 149/95 H 100 11/09/17 01:15 11/09/17 10:00 11/09/17 01:15 11/09/17 10:00 11/09/17 10:00 Intake and Output: 11/09/17 11/09/17 06:59 18:59 Intake Total 1725 Output Total 700 Balance 1025 - Medications Medications: Current Medications Acetaminophen (Tylenol 325mg Tab) 650 mg PO Q4H PRN PRN Reason: Fever >100.4 F Last Admin: 11/03/17 16:31 Dose: 650 mg Calcium Acetate (Phoslo) 667 mg PO WM [facility] Last Admin: 11/09/17 08:10 Dose: 667 mg Famotidine (Pepcid) 20 mg IVP DAILY [facility] Last Admin: 11/09/17 10:10 Dose: 20 mg Heparin Sodium (Porcine) (Heparin) 5,000 units SC Q12 DAVID PRN Reason: Protocol Last Admin: 11/09/17 10:10 Dose: 5,000 units Valproate Sodium 500 mg/ (Sodium Chloride) 105 mls @ 100 mls/hr IVPB BID [facility] Last Admin: 11/09/17 10:10 Dose: 100 mls/hr Meropenem 250 mg/ Sodium (Chloride) 100 mls @ 100 mls/hr IVPB Q12H DAVID PRN Reason: Protocol Stop: 11/16/17 18:16 Last Admin: 11/09/17 06:12 Dose: 100 mls/hr Dextrose/Sodium Chloride (Dextrose 5%/0.45% Ns 1000 Ml) 1,000 mls @ 65 mls/hr IV .[id number] [facility] Last Admin: 11/09/17 01:54 Dose: 65 mls/hr Propofol (Diprivan) 1,000 mg in 100 mls @ 1.334 mls/hr IV .Q24H PRN; Protocol; 5 MCG/KG/MIN PRN Reason: TITRATE PER MD ORDER Levalbuterol HCl (Xopenex) 0.63 mg IH [id number] DAVID Last Admin: 11/09/17 07:45 Dose: 0.63 mg Levalbuterol HCl (Xopenex) 0.63 mg IH Q2 PRN PRN Reason: Shortness of Breath Last Admin: 11/07/17 09:40 Dose: 0.63 mg - Labs Labs: 11/09/17 05:30 11/09/17 05:30 PT 11.8 SECONDS (9.4-12.5) 11/08/17 04:00 INR 1.03 (0.93-1.08) 11/08/17 04:00 APTT 34.6 Seconds (25.1-36.5) 11/08/17 04:00 - Constitutional Appears: No Acute Distress - Eye Exam Eye Exam: PERRL Pupil Exam: NORMAL ACCOMODATION - Neurological Exam Neurological Exam: absent: Oriented x3 Neuro motor strength exam: Left Upper Extremity: 3, Right Upper Extremity: 3, Left Lower Extremity: 3, Right Lower Extremity: 3 Assessment and Plan - Assessment and Plan (Free Text) Assessment: 77-year-old woman with a past medical history of dementia (severe, non-verbal), COPD, HTN, CKD, CVA of who was sent from [facility] with increased lethargy and was found to have severe hypernatremia, and pneumonia. Pt had several witnessed seizures and required intubation for airway protection. - EEG ordered - Continue Depakote and monitor levels - Abx as per ID - Medical management per medical team and ICU Case and plan was reviewed and discussed in detail with Dr Zamarripa.
--- NOTE | 2017-11-09 13:58 | CP.PCM.PN ---
<Ember Magaña - Last Filed: 11/09/17 13:49> Subjective - Date & Time of Evaluation Date of Evaluation: 11/09/17 Time of Evaluation: 13:49 - Subjective Subjective: Ember Magaña, PGY1, Medicine Progress Note for Dr Dowling: Patient seen and assessed at bedside. No acute events overnight. Pt intubated, remains lethargic (not on sedation), withdraws to painful stimuli. No fevers, vomiting overnight. ROS limited due to pt being intubated/AMS. Objective - Vital Signs/Intake and Output Vital Signs (last 24 hours): Temp Pulse Resp BP Pulse Ox 98.7 F 53 L 20 152/86 H 100 11/09/17 12:00 11/09/17 11:59 11/09/17 01:15 11/09/17 12:00 11/09/17 11:59 Intake and Output: 11/09/17 11/09/17 06:59 18:59 Intake Total 1725 Output Total 700 Balance 1025 - Medications Medications: Current Medications Acetaminophen (Tylenol 325mg Tab) 650 mg PO Q4H PRN PRN Reason: Fever >100.4 F Last Admin: 11/03/17 16:31 Dose: 650 mg Calcium Acetate (Phoslo) 667 mg PO [facility] Last Admin: 11/09/17 12:15 Dose: 667 mg Famotidine (Pepcid) 20 mg IVP DAILY [facility] Last Admin: 11/09/17 10:10 Dose: 20 mg Heparin Sodium (Porcine) (Heparin) 5,000 units SC Q12 DAVID PRN Reason: Protocol Last Admin: 11/09/17 10:10 Dose: 5,000 units Valproate Sodium 500 mg/ (Sodium Chloride) 105 mls @ 100 mls/hr IVPB BID [facility] Last Admin: 11/09/17 10:10 Dose: 100 mls/hr Meropenem 250 mg/ Sodium (Chloride) 100 mls @ 100 mls/hr IVPB Q12H DAVID PRN Reason: Protocol Stop: 11/16/17 18:16 Last Admin: 11/09/17 06:12 Dose: 100 mls/hr Dextrose/Sodium Chloride (Dextrose 5%/0.45% Ns 1000 Ml) 1,000 mls @ 65 mls/hr IV .[id number] [facility] Last Admin: 11/09/17 01:54 Dose: 65 mls/hr Propofol (Diprivan) 1,000 mg in 100 mls @ 1.334 mls/hr IV .Q24H PRN; Protocol; 5 MCG/KG/MIN PRN Reason: TITRATE PER MD ORDER Last Admin: 11/09/17 12:50 Dose: 5 mcg/kg/min, 1.334 mls/hr Levalbuterol HCl (Xopenex) 0.63 mg IH [id number] [facility] Last Admin: 11/09/17 07:45 Dose: 0.63 mg Levalbuterol HCl (Xopenex) 0.63 mg IH Q2 PRN PRN Reason: Shortness of Breath Last Admin: 11/07/17 09:40 Dose: 0.63 mg - Labs Labs: 11/09/17 05:30 11/09/17 05:30 PT 11.8 SECONDS (9.4-12.5) 11/08/17 04:00 INR 1.03 (0.93-1.08) 11/08/17 04:00 APTT 34.6 Seconds (25.1-36.5) 11/08/17 04:00 - Additional Findings Additional findings: - Constitutional Appears: Chronically Ill - Head Exam Head Exam: ATRAUMATIC, NORMOCEPHALIC - ENT Exam ENT Exam: Mucous Membranes Moist - Neck Exam Neck Exam: intubated. absent: Lymphadenopathy - Respiratory Exam Respiratory Exam: Clear to Auscultation Bilateral, NORMAL BREATHING PATTERN - Cardiovascular Exam Cardiovascular Exam: REGULAR RHYTHM, +S1, +S2. No murmurs. - GI/Abdominal Exam GI & Abdominal Exam: Soft, Normal Bowel Sounds. absent: Tenderness - Extremities Exam Extremities Exam: Normal Capillary Refill. absent: Calf Tenderness, Pedal Edema - Neurological Exam Neurological Exam: lethargic, responds to painful stimuli. absent: Alert, Awake - Skin Skin Exam: Dry, Intact, Normal Color, Warm Assessment and Plan - Assessment and Plan (Free Text) Assessment: 77 year old female with a past medical history significant for HTN, asthma, Parkinson's, recent [facility] admission for AMS/hypernatremia who presented for AMS, FTT, hypernatremia, and AVERY. Patient was medically cleared for med/surg level of care and was awaiting placement in [facility]. This morning patient noted to be agitated, requiring restraints to maintain NRB mask in place. [employer]TERNAT[employer] MEDICINE PRACTITIONER was called after patient had a seizure witnessed by nursing staff, for which she received one dose of ativan and keppra. Neurology was consulted and started Depakote. Pulmonology was consulted and deemed patient unable to protect her airway, for which she was intubated and transferred to the ICU. 1. New Onset Seizure: ruled out CVA, electrolyte abnormalities (K, Na), metabolic (stable uremia, no hypoglycemia) -CT Head showed no acute hemorrhages or infarcts -Currently intubated on PRVC for airway protection with intermittent weaning trials on CPAP plus PS mode -EEG pending -Continue IV Depakote -NPO Diet -Fall and Seizure precautions -Neurology and Pulmonology consulted, all recommendations appreciated 2. HCAP -Chest X-Ray on 11/07 showed LLL infiltrate versus atelectasis and Chest X-Ray on 11/03 showed RLL infiltrate versus atelectasis -Continue with Merrem -Continue Xopenex Q6 scheduled and Q2 PRN -Currently intubated on PRVC settings -Continue Tylenol PRN for fever -ID consulted, all recommendations appreciated 3. UTI -Urine culture growing for E. Faecalis -likely contaminant 4. Acute Kidney Injury in setting of Chronic Kidney Disease -BUN/Creatinine improving to patients baseline -Continue Phoslo -Nephrology consulted, all recommendations appreciated 5. Iron Deficiency Anemia -H/H dropped from 9.5 to 7.4 yesterday, post transfusion Hgb 12.0 -Type and Screen -s/p transfusion two units of pRBC's -Stool for occult blood pending -Currently holding Venofer in setting of bacterial infection GI Prophylaxis: Pepcid DVT Prophylaxis: SCD's Patient seen and case discussed with attending, Dr. Dowling. <Cheyanne Dowling - Last Filed: 11/09/17 15:23> Objective - Vital Signs/Intake and Output Vital Signs (last 24 hours): Temp Pulse Resp BP Pulse Ox 98.7 F 53 L 20 152/86 H 100 11/09/17 12:00 11/09/17 11:59 11/09/17 01:15 11/09/17 12:00 11/09/17 11:59 Intake and Output: 11/09/17 11/09/17 06:59 18:59 Intake Total 1725 Output Total 700 Balance 1025 - Medications Medications: Current Medications Acetaminophen (Tylenol 325mg Tab) 650 mg PO Q4H PRN PRN Reason: Fever >100.4 F Last Admin: 11/03/17 16:31 Dose: 650 mg Calcium Acetate (Phoslo) 667 mg PO [facility] Last Admin: 11/09/17 12:15 Dose: 667 mg Famotidine (Pepcid) 20 mg IVP DAILY [facility] Last Admin: 11/09/17 10:10 Dose: 20 mg Heparin Sodium (Porcine) (Heparin) 5,000 units SC Q12 DAVID PRN Reason: Protocol Last Admin: 11/09/17 10:10 Dose: 5,000 units Valproate Sodium 500 mg/ (Sodium Chloride) 105 mls @ 100 mls/hr IVPB BID [facility] Last Admin: 11/09/17 10:10 Dose: 100 mls/hr Meropenem 250 mg/ Sodium (Chloride) 100 mls @ 100 mls/hr IVPB Q12H [facility] PRN Reason: Protocol Stop: 11/16/17 18:16 Last Admin: 11/09/17 06:12 Dose: 100 mls/hr Dextrose/Sodium Chloride (Dextrose 5%/0.45% Ns 1000 Ml) 1,000 mls @ 65 mls/hr IV .[id number] [facility] Last Admin: 11/09/17 01:54 Dose: 65 mls/hr Propofol (Diprivan) 1,000 mg in 100 mls @ 1.334 mls/hr IV .Q24H PRN; Protocol; 5 MCG/KG/MIN PRN Reason: TITRATE PER MD ORDER Last Admin: 11/09/17 12:50 Dose: 5 mcg/kg/min, 1.334 mls/hr Levalbuterol HCl (Xopenex) 0.63 mg IH [id number] [facility] Last Admin: 11/09/17 14:08 Dose: 0.63 mg Levalbuterol HCl (Xopenex) 0.63 mg IH Q2 PRN PRN Reason: Shortness of Breath Last Admin: 11/07/17 09:40 Dose: 0.63 mg - Labs Labs: 11/09/17 05:30 11/09/17 05:30 PT 11.8 SECONDS (9.4-12.5) 11/08/17 04:00 INR 1.03 (0.93-1.08) 11/08/17 04:00 APTT 34.6 Seconds (25.1-36.5) 11/08/17 04:00 Attending/Attestation - Attestation I have personally seen and examined this patient.: Yes I have fully participated in the care of the patient.: Yes I have reviewed all pertinent clinical information, including history, physical exam and plan: Yes Notes (Text): 11/09/17 15:21 77 year old female with past medical history of hypertension, asthma/COPD, Parkinson's, and CKD who presented with AMS; found to have severe hypernatremia , acute on chronic kidney disease, and CO2 retention. She is on iv valproate for new onset seizure over the weekend. Neurology is following. EEG was done today with pending report. Continue with vent management as per tavern operator. She is on iv antibiotics for RLL pneumonia as per ID. Hemoglobin has improved after prbc transfusion. Nephrology is following for AVERY/CKD. Cheyanne Dowling MD Hospitalist.
--- NOTE | 2017-11-09 15:04 | PN ---
DATE: SUBJECTIVE: The patient had been transferred back to the ICU/CCU. She is currently intubated for increasing respiratory distress in the setting of seizures. The patient's creatinine actually has improved down to 4.3 from a high of 5.3. MEDICATIONS: Medication list reviewed. The patient is on D5 half-normal saline 65 mL/hour, Diprivan, heparin, meropenem, Pepcid, PhosLo, Tylenol p.r.n., valproic acid by IV, Xopenex. OBJECTIVE: INTAKE/OUTPUT: Intake is 3550, output is 1240. Patient has positive fluid balance of 2310 mL. VITAL SIGNS: Blood pressure 149/95, pulse of 68, temperature is 98.1, and respiratory rate is 20. The patient remains on a ventilator. She is presently unresponsive. HEENT: Shows to be normocephalic, atraumatic. Eyes remain closed. Patient remains intubated. NECK: No neck vein distention. CHEST: Clear to auscultation and percussion with decreased breath sounds at the bases. No rales, rhonchi, or wheezing. CARDIOVASCULAR: Shows a regular rate and rhythm without murmurs, rubs, or gallops noted. ABDOMEN: Soft. Nondistended, nontender. Bowel sounds are normal. EXTREMITIES: Show no lower extremity cyanosis, clubbing, or edema. NEUROLOGIC: Difficult to assess as the patient is intubated and unresponsive. LABORATORY DATA AND IMAGING: Labs today: CBC: White blood cell count 4.7, hemoglobin 12, post transfusion 2 units packed red blood cells. Platelet count is 308,000. Blood gas from today showed a pO2 of 116 with a pCO2 of 44 and pH of 7.40. Chemistry showed normal electrolytes. BUN 53 with a creatinine of 4.3. This is an improvement with IV fluid hydration. Glucose is 85. Calcium 9.7, phosphorus 3.3, magnesium is 1.9. Liver enzymes remain normal. Albumin is 3.3. Chest x-ray done today shows the patient to be intubated, in no acute pulmonary disease. Microbiology: Urine is positive for Enterococcus. Blood cultures are negative. ASSESSMENT: 1. Chronic kidney disease stage 5, appears to be stable. If anything, patient has a slight improvement in her BUN and creatinine with IV fluid hydration. Again, I had been talked last week about the patient being referred back to her warehouse analyst back in [place] and for the initiation in preparation for dialysis. 2. Status post seizures with respiratory distress. Patient is currently in the ICU, remains seizure free on IV valproic acid, and patient remains intubated and essentially unresponsive, currently receiving no sedation. 3. Anemia of chronic kidney disease. This is secondary to her advanced chronic renal insufficiency. The patient is status post 2 units of packed red blood cells. Her hemoglobin today is acceptable. 4. History of secondary hyperparathyroidism. Repeat phosphorus levels. Patient is essentially n.p.o. at present and she is currently not receiving binder therapy. 5. History of hypertension. Blood pressure control is acceptable. PLAN: 1. Put improvement in BUN and creatinine. There are no immediate plans for any dialysis. 2. Again, will need to discuss with the patient's family the strong possibility of her preparing for dialysis when she stabilizes and gets back to [place]. 3. Continue IV antibiotic therapy for her UTI. 4. Continue present medication for her seizure activity. 5. Continue IV fluid hydration low dose. 6. Continue to monitor accurate I's and O's. 7. Should her BUN and creatinine significantly worsen, patient become significantly acidotic or hyperkalemic or become volume overloaded with declining an urine output. There will be no choice but to start her on acute dialysis. 8. Case discussed with staff in the CCU. Greater than 35 minutes spent in the care of this patient. Abdifatah Arteaga MD
--- NOTE | 2017-11-09 18:35 | CP.PCM.PN ---
<Michael Louise - Last Filed: 11/09/17 18:30> Subjective - Date & Time of Evaluation Date of Evaluation: 11/09/17 Time of Evaluation: 18:05 - Subjective Subjective: Michael Louise D.O. PGY-2, Ground Instructor Advanced Resident, Lucrecia Rowell Note Code bryan called, responded at bedside. Handbag Framer Dr. Steele, RN and respiratory therapist at bedside. Patient had become bradycardic and had PEA arrest with loss of pulse. Chest compressions were started immediately. ACLS protocol was initiated and followed. Epinephrine was given every 3-5 minutes per protocol for a total of 3 doses. RT noted copious secretions during bagging and required multiple suctions. One amp of bicarb also given. Blood glucose during code was 118. Patient regained ROSC at 1814. Full set of labs sent immediately, still pending. CXR pending. Bedside echocardiogram showed hyperdynamic LV with LVH. Will give 2L of NS. Developments discussed with daughter who states will get in contact with patient 's spouse to discuss further but for now they still want to keep the patient full code. Discussed with co chairman and primary team. Objective - Vital Signs/Intake and Output Vital Signs (last 24 hours): Temp Pulse Resp BP Pulse Ox 98.7 F 67 22 162/87 H 99 11/09/17 12:00 11/09/17 16:15 11/09/17 13:46 11/09/17 16:30 11/09/17 16:30 Intake and Output: 11/09/17 11/09/17 06:59 18:59 Intake Total 1725 800 Output Total 700 Balance 1025 800 - Medications Medications: Current Medications Acetaminophen (Tylenol 325mg Tab) 650 mg PO Q4H PRN PRN Reason: Fever >100.4 F Last Admin: 11/03/17 16:31 Dose: 650 mg Calcium Acetate (Phoslo) 667 mg PO WM [facility]ID Last Admin: 11/09/17 12:15 Dose: 667 mg Famotidine (Pepcid) 20 mg IVP DAILY [facility] Last Admin: 11/09/17 10:10 Dose: 20 mg Heparin Sodium (Porcine) (Heparin) 5,000 units SC Q12 [facility] PRN Reason: Protocol Last Admin: 11/09/17 10:10 Dose: 5,000 units Valproate Sodium 500 mg/ (Sodium Chloride) 105 mls @ 100 mls/hr IVPB BID [facility] Last Admin: 11/09/17 10:10 Dose: 100 mls/hr Meropenem 250 mg/ Sodium (Chloride) 100 mls @ 100 mls/hr IVPB Q12H [facility] PRN Reason: Protocol Stop: 11/16/17 18:16 Last Admin: 11/09/17 06:12 Dose: 100 mls/hr Dextrose/Sodium Chloride (Dextrose 5%/0.45% Ns 1000 Ml) 1,000 mls @ 65 mls/hr IV .[id number] [facility] Last Admin: 11/09/17 16:54 Dose: 65 mls/hr Propofol (Diprivan) 1,000 mg in 100 mls @ 1.334 mls/hr IV .Q24H PRN; Protocol; 5 MCG/KG/MIN PRN Reason: TITRATE PER MD ORDER Last Titration: 11/09/17 14:40 Dose: 0 mcg/kg/min, 0 mls/hr Levalbuterol HCl (Xopenex) 0.63 mg IH [id number] [facility] Last Admin: 11/09/17 14:08 Dose: 0.63 mg Levalbuterol HCl (Xopenex) 0.63 mg IH Q2 PRN PRN Reason: Shortness of Breath Last Admin: 11/07/17 09:40 Dose: 0.63 mg - Labs Labs: 11/09/17 05:30 11/09/17 05:30 PT 11.8 SECONDS (9.4-12.5) 11/08/17 04:00 INR 1.03 (0.93-1.08) 11/08/17 04:00 APTT 34.6 Seconds (25.1-36.5) 11/08/17 04:00 <Fantasma [employer] - Last Filed: 11/09/17 18:42> Subjective - Subjective Subjective: Pt seen and examined, with resident, agree with note with following additions/ exceptions: Patient noted to be bradycaric and had PEA cardiac arrest today at 18:05. I arrived to the bedside, CPR in progress. ACLS protocol initiated. CPR done, pulse checked every 2 minutes, epinephrine 1mg given every 3-5minutes, patient was noted to be in PEA arrest. One amp of bicarb given. FS 118. During the CPR, copious amount of secretions noted from ETT which was suctioned. ROSC obtained at 18:14, sinus tachcyardiac 140s, BP 204/138. CXR pending, labs pending, EKG pending. Bedside ECHO demonstrated hyperdynamic LV, with NO pericardial effusion. Family notified of events. Patient remains critical, and is at high risk for morbidity and mortality. Objective - Vital Signs/Intake and Output Vital Signs (last 24 hours): Temp Pulse Resp BP Pulse Ox 98.7 F 67 22 162/87 H 99 11/09/17 12:00 11/09/17 16:15 11/09/17 13:46 11/09/17 16:30 11/09/17 16:30 Intake and Output: 11/09/17 11/09/17 06:59 18:59 Intake Total 1725 800 Output Total 700 Balance 1025 800 - Medications Medications: Current Medications Acetaminophen (Tylenol 325mg Tab) 650 mg PO Q4H PRN PRN Reason: Fever >100.4 F Last Admin: 11/03/17 16:31 Dose: 650 mg Calcium Acetate (Phoslo) 667 mg PO WM [facility] Last Admin: 11/09/17 12:15 Dose: 667 mg Famotidine (Pepcid) 20 mg IVP DAILY [facility] Last Admin: 11/09/17 10:10 Dose: 20 mg Heparin Sodium (Porcine) (Heparin) 5,000 units SC Q12 [facility] PRN Reason: Protocol Last Admin: 11/09/17 10:10 Dose: 5,000 units Valproate Sodium 500 mg/ (Sodium Chloride) 105 mls @ 100 mls/hr IVPB BID [facility] Last Admin: 11/09/17 10:10 Dose: 100 mls/hr Meropenem 250 mg/ Sodium (Chloride) 100 mls @ 100 mls/hr IVPB Q12H [facility] PRN Reason: Protocol Stop: 11/16/17 18:16 Last Admin: 11/09/17 06:12 Dose: 100 mls/hr Dextrose/Sodium Chloride (Dextrose 5%/0.45% Ns 1000 Ml) 1,000 mls @ 65 mls/hr IV .[id number] [facility] Last Admin: 11/09/17 16:54 Dose: 65 mls/hr Propofol (Diprivan) 1,000 mg in 100 mls @ 1.334 mls/hr IV .Q24H PRN; Protocol; 5 MCG/KG/MIN PRN Reason: TITRATE PER MD ORDER Last Titration: 11/09/17 14:40 Dose: 0 mcg/kg/min, 0 mls/hr Levalbuterol HCl (Xopenex) 0.63 mg IH [id number] [facility] Last Admin: 11/09/17 14:08 Dose: 0.63 mg Levalbuterol HCl (Xopenex) 0.63 mg IH Q2 PRN PRN Reason: Shortness of Breath Last Admin: 11/07/17 09:40 Dose: 0.63 mg - Labs Labs: 11/09/17 05:30 11/09/17 05:30 PT 11.8 SECONDS (9.4-12.5) 11/08/17 04:00 INR 1.03 (0.93-1.08) 11/08/17 04:00 APTT 34.6 Seconds (25.1-36.5) 11/08/17 04:00
[2017-11-09 18:37] LABS: HEMOGLOBIN 11.3 g/dL (12.0-16.0); MEAN CELL VOLUME 97.1 fl (80.0-105.0); MEAN CORPUSCULAR HEMOGLOBIN 30.1 pg (25.0-35.0); MEAN PLATELET VOLUME 10.6 fl (7.0-11.0); RBC 3.76 10^6/uL (3.5-6.1); RED CELL DISTRIBUTION WIDTH 17.5 % (11.5-14.5); VENOUS BLOOD GAS PO2 304 mm/Hg (30-55); WHITE BLOOD COUNT 8.3 10^3/ul (4.5-11.0)
[2017-11-09 18:40] LABS: VENOUS BLOOD PH 7.17 (7.32-7.43)
[2017-11-09 18:53] LABS: INR 1.03 (0.93-1.08); PARTIAL THROMBOPLASTIN TIME 31.1 Seconds (25.1-36.5); PROTHROMBIN TIME 11.8 SECONDS (9.4-12.5)
[2017-11-09 18:54] LABS: CALCIUM 9.4 mg/dL (8.4-10.5); MAGNESIUM 2.2 mg/dL (1.7-2.2)
[2017-11-09] MEDS ORDERED: Sodium Chloride 0.9% 2,000 ML IV STA (18:55)
--- NOTE | 2017-11-09 19:08 | RAD ---
HISTORY: code blue COMPARISON: Chest x-ray performed 11/09/17 at 510 hours TECHNIQUE: Chest, one view. FINDINGS: Nasogastric tube extends expected location of the stomach. LUNGS: Bibasilar atelectasis. PLEURA: No significant pleural effusion identified. Right-sided pneumothorax measures approximately 1.5 cm on the right from pleural edge. Pneumothorax on the left measures approximately 1.4 cm from pleural edge laterally and 4.1 cm superior medially. CARDIOVASCULAR: Heart size appears top normal. Ectatic aorta. Atherosclerotic calcifications. OSSEOUS STRUCTURES: Degenerative changes. VISUALIZED UPPER ABDOMEN: Unremarkable. OTHER FINDINGS: None. IMPRESSION: Interval development of bilateral pneumothoraces as above. Small bilateral pleural effusions and associated atelectasis. Nasogastric tube, left-sided central venous catheter (terminating likely within the brachiocephalic vein), and endotracheal tube appear stable position. Findings discussed with JOHANNE Marvin on 11/09/17 at 7:01 p.m. Findings also discussed with Dr Louise at 7:05 p.m..
[2017-11-09 19:11] LABS: TROPONIN I 0.06 ng/mL
--- NOTE | 2017-11-09 21:01 | CP.PCM.CON ---
History of Present Illness - History of Present Illness History of Present Illness: General Surgery consult for Dr. Saravia Consulted for: BL pneumothorax Patient is a 77F who was admitted for on 11/01/17 with altered mental status and failure to thrive. On 11/07/17 patient was witnessed to have seizure like activity and was unable to control her airway and was intubated and transferred to the ICU. Today patient had hypoxia and began to have worsening bradycardia until she was found to be in PEA. Code was initiated with chest compressions and ROSC was attained after 9 minutes. Chest X ray afterwards showed BL pneumothoraxes. Patient was satting 100% on PRVC mechanical ventilation of 300tidal volume, 20RR, 5 PEEP, 60% FIO2. Chest tubes were placed at bedside bilaterally and repeat CXR showed near complete resolution of pneumothoraxes bilaterally. Review of Systems - Review of Systems Systems not reviewed;Unavailable: Altered Mental Status, Intubated Past Patient History - Past Medical History & Family History Past Medical History?: Yes - Past Social History Smoking Status: Former Smoker - CARDIAC Hx Hypertension: Yes Hx Pacemaker: No - PULMONARY Hx Asthma: Yes - NEUROLOGICAL HX Cerebrovascular Accident: (questionable cva in [place] 2006) Hx Parkinson's Disease: Yes (questionable) Other/Comment: uncontrollable twitching, jittery,short term memory loss, forgetful since 2010 worsening 2013, difficulty walking - HEENT Hx Cataracts: Yes (left eye) - HEMATOLOGICAL/ONCOLOGICAL Hx Cancer: No - INTEGUMENTARY Other/Comment: dry skin ble - MUSCULOSKELETAL/RHEUMATOLOGICAL Hx Falls: Yes (recent frequent) - GASTROINTESTINAL Hx Gastroesophageal Reflux: Yes - PSYCHIATRIC Hx Substance Use: No - SURGICAL HISTORY Hx Mastectomy: No Meds Allergies/Adverse Reactions: Allergies Allergy/AdvReac Type Severity Reaction Status Date / Time No Known Allergies Allergy Verified 11/01/17 14:45 - Medications Medications: Current Medications Acetaminophen (Tylenol 325mg Tab) 650 mg PO Q4H PRN PRN Reason: Fever >100.4 F Last Admin: 11/03/17 16:31 Dose: 650 mg Calcium Acetate (Phoslo) 667 mg PO WM [facility] Last Admin: 11/09/17 18:47 Dose: Not Given Famotidine (Pepcid) 20 mg IVP DAILY [facility] Last Admin: 11/09/17 10:10 Dose: 20 mg Heparin Sodium (Porcine) (Heparin) 5,000 units SC Q12 [facility] PRN Reason: Protocol Last Admin: 11/09/17 10:10 Dose: 5,000 units Valproate Sodium 500 mg/ (Sodium Chloride) 105 mls @ 100 mls/hr IVPB BID [facility] Last Admin: 11/09/17 18:47 Dose: 100 mls/hr Meropenem 250 mg/ Sodium (Chloride) 100 mls @ 100 mls/hr IVPB Q12H [facility] PRN Reason: Protocol Stop: 11/16/17 18:16 Last Admin: 11/09/17 19:15 Dose: 100 mls/hr Dextrose/Sodium Chloride (Dextrose 5%/0.45% Ns 1000 Ml) 1,000 mls @ 65 mls/hr IV .[id number] [facility] Last Admin: 11/09/17 16:54 Dose: 65 mls/hr Propofol (Diprivan) 1,000 mg in 100 mls @ 1.334 mls/hr IV .Q24H PRN; Protocol; 5 MCG/KG/MIN PRN Reason: TITRATE PER MD ORDER Last Titration: 11/09/17 14:40 Dose: 0 mcg/kg/min, 0 mls/hr Levalbuterol HCl (Xopenex) 0.63 mg IH [id number] [facility] Last Admin: 11/09/17 14:08 Dose: 0.63 mg Levalbuterol HCl (Xopenex) 0.63 mg IH Q2 PRN PRN Reason: Shortness of Breath Last Admin: 11/07/17 09:40 Dose: 0.63 mg Physical Exam - Constitutional Appears: Non-toxic, No Acute Distress - Head Exam Head Exam: ATRAUMATIC, NORMOCEPHALIC - Eye Exam Eye Exam: Conjunctival injection, Periorbital swelling, PERRL Pupil Exam: PERRL - ENT Exam ENT Exam: Mucous Membranes Moist Additional comments: ETT in place - Cardiovascular Exam Cardiovascular Exam: RRR - GI/Abdominal Exam GI & Abdominal Exam: Soft. absent: Distended - Neurological Exam Neurological exam: Altered - Skin Skin Exam: Dry, Normal Color, Warm Results - Vital Signs Recent Vital Signs: Last Vital Signs Temp 97.2 F L 11/09/17 19:00 Pulse 58 L 11/09/17 19:35 Resp 20 11/09/17 19:00 BP 94/66 L 02/19/18 19:35 Pulse Ox 100 11/09/17 19:35 - Labs Result Diagrams: 11/09/17 18:32 11/09/17 18:32 Labs: Laboratory Results - last 24 hr 11/06/17 11/08/17 11/08/17 09:50 08:30 21:59 WBC RBC Hgb Hct MCV MCH MCHC RDW Plt Count MPV Gran % Lymph % (Auto) [place] % (Auto) Eos % (Auto) Baso % (Auto) Gran # Lymph # (Auto) [place] # (Auto) Eos # (Auto) Baso # (Auto) PT INR APTT pCO2 pO2 HCO3 ABG pH ABG Total CO2 ABG O2 Saturation ABG O2 Content ABG Base Excess ABG Hemoglobin ABG Carboxyhemoglobin POC ABG HHb (Measured) ABG Methemoglobin ABG O2 Capacity VBG pH VBG pCO2 VBG HCO3 VBG Total CO2 VBG O2 Sat (Calc) VBG Base Excess VBG Potassium Hgb O2 Saturation Glucose Lactate FiO2 Sodium Potassium Chloride Carbon Dioxide Anion Gap BUN Creatinine Est GFR ( Amer) Est GFR (Non-Af Amer) POC Glucose (mg/dL) 72 Random Glucose Calcium Phosphorus Magnesium Total Bilirubin AST ALT Alkaline Phosphatase Lactate Dehydrogenase Total Creatine Kinase Troponin I Total Protein Albumin Globulin Albumin/Globulin Ratio PTH Intact Whole Molec 292 H Venous Blood Potassium Blood Type O POSITIVE Antibody Screen Negative Crossmatch See Detail BBK History Checked No verified bt 11/09/17 11/09/17 11/09/17 01:00 01:42 05:30 WBC 4.7 RBC 4.09 Hgb 12.0 D Hct 38.3 MCV 93.6 D MCH 29.3 MCHC 31.3 RDW 17.0 H Plt Count 308 MPV 10.3 Gran % 62.3 Lymph % (Auto) 19.3 L [place] % (Auto) 16.7 H Eos % (Auto) 1.5 Baso % (Auto) 0.2 Gran # 2.94 Lymph # (Auto) 0.9 L [place] # (Auto) 0.8 H Eos # (Auto) 0.1 Baso # (Auto) 0.01 PT INR APTT pCO2 44 pO2 116.0 H HCO3 27.3 ABG pH 7.40 ABG Total CO2 28.7 H ABG O2 Saturation 99.8 H ABG O2 Content 13.8 L ABG Base Excess 2.2 ABG Hemoglobin 10.0 L ABG Carboxyhemoglobin 2.1 H POC ABG HHb (Measured) 0.2 ABG Methemoglobin 1.1 ABG O2 Capacity 13.8 L VBG pH VBG pCO2 VBG HCO3 VBG Total CO2 VBG O2 Sat (Calc) VBG Base Excess VBG Potassium Hgb O2 Saturation 96.6 Glucose Lactate FiO2 35.0 Sodium Potassium Chloride Carbon Dioxide Anion Gap BUN Creatinine Est GFR ( Amer) Est GFR (Non-Af Amer) POC Glucose (mg/dL) 78 Random Glucose Calcium Phosphorus Magnesium Total Bilirubin AST ALT Alkaline Phosphatase Lactate Dehydrogenase Total Creatine Kinase Troponin I Total Protein Albumin Globulin Albumin/Globulin Ratio PTH Intact Whole Molec Venous Blood Potassium Blood Type Antibody Screen Crossmatch BBK History Checked 11/09/17 11/09/17 11/09/17 05:30 07:22 11:36 WBC RBC Hgb Hct MCV MCH MCHC RDW Plt Count MPV Gran % Lymph % (Auto) [place] % (Auto) Eos % (Auto) Baso % (Auto) Gran # Lymph # (Auto) [place] # (Auto) Eos # (Auto) Baso # (Auto) PT INR APTT pCO2 pO2 HCO3 ABG pH ABG Total CO2 ABG O2 Saturation ABG O2 Content ABG Base Excess ABG Hemoglobin ABG Carboxyhemoglobin POC ABG HHb (Measured) ABG Methemoglobin ABG O2 Capacity VBG pH VBG pCO2 VBG HCO3 VBG Total CO2 VBG O2 Sat (Calc) VBG Base Excess VBG Potassium Hgb O2 Saturation Glucose Lactate FiO2 Sodium 146 Potassium 4.1 Chloride 106 Carbon Dioxide 27 Anion Gap 18 BUN 53 H Creatinine 4.3 H Est GFR ( Amer) 12 Est GFR (Non-Af Amer) 10 POC Glucose (mg/dL) 71 75 Random Glucose 85 Calcium 9.7 Phosphorus 3.3 Magnesium 1.9 Total Bilirubin 0.6 AST 33 ALT 29 Alkaline Phosphatase 108 Lactate Dehydrogenase Total Creatine Kinase Troponin I Total Protein 6.8 Albumin 3.3 Globulin 3.4 Albumin/Globulin Ratio 1.0 L PTH Intact Whole Molec Venous Blood Potassium Blood Type Antibody Screen Crossmatch BBK History Checked 11/09/17 11/09/17 11/09/17 16:14 18:10 18:32 WBC RBC Hgb Hct MCV MCH MCHC RDW Plt Count MPV Gran % Lymph % (Auto) [place] % (Auto) Eos % (Auto) Baso % (Auto) Gran # Lymph # (Auto) [place] # (Auto) Eos # (Auto) Baso # (Auto) PT INR APTT pCO2 pO2 HCO3 ABG pH ABG Total CO2 ABG O2 Saturation ABG O2 Content ABG Base Excess ABG Hemoglobin ABG Carboxyhemoglobin POC ABG HHb (Measured) ABG Methemoglobin ABG O2 Capacity VBG pH VBG pCO2 VBG HCO3 VBG Total CO2 VBG O2 Sat (Calc) VBG Base Excess VBG Potassium Hgb O2 Saturation Glucose Lactate FiO2 Sodium 154 H Potassium 4.9 Chloride 105 Carbon Dioxide 30 Anion Gap 24 H BUN 50 H Creatinine 3.9 H Est GFR ( Amer) 14 Est GFR (Non-Af Amer) 11 POC Glucose (mg/dL) 82 118 H Random Glucose 161 H Calcium 9.4 Phosphorus Magnesium 2.2 Total Bilirubin 0.4 AST 59 H D ALT 47 Alkaline Phosphatase 154 H D Lactate Dehydrogenase 867 H Total Creatine Kinase 54 Troponin I 0.06 Total Protein 5.9 Albumin 3.0 Globulin 2.9 Albumin/Globulin Ratio 1.0 L PTH Intact Whole Molec Venous Blood Potassium Blood Type Antibody Screen Crossmatch BBK History Checked 11/09/17 11/09/17 11/09/17 18:32 18:32 18:32 WBC 8.3 D RBC 3.76 Hgb 11.3 L Hct 36.5 MCV 97.1 D MCH 30.1 MCHC 31.0 RDW 17.5 H Plt Count 308 MPV 10.6 Gran % Lymph % (Auto) [place] % (Auto) Eos % (Auto) Baso % (Auto) Gran # Lymph # (Auto) [place] # (Auto) Eos # (Auto) Baso # (Auto) PT 11.8 INR 1.03 APTT 31.1 pCO2 pO2 304 H HCO3 ABG pH ABG Total CO2 ABG O2 Saturation ABG O2 Content ABG Base Excess ABG Hemoglobin ABG Carboxyhemoglobin POC ABG HHb (Measured) ABG Methemoglobin ABG O2 Capacity VBG pH 7.17 L* VBG pCO2 95.0 H* VBG HCO3 34.7 H VBG Total CO2 37.6 H VBG O2 Sat (Calc) 100.4 H VBG Base Excess 3.0 H VBG Potassium 5.0 Hgb O2 Saturation Glucose 162 H Lactate 7.0 H* FiO2 21.0 Sodium 150.0 H Potassium Chloride 109.0 H Carbon Dioxide Anion Gap BUN Creatinine Est GFR ( Amer) Est GFR (Non-Af Amer) POC Glucose (mg/dL) Random Glucose Calcium Phosphorus Magnesium Total Bilirubin AST ALT Alkaline Phosphatase Lactate Dehydrogenase Total Creatine Kinase Troponin I Total Protein Albumin Globulin Albumin/Globulin Ratio PTH Intact Whole Molec Venous Blood Potassium 5.0 Blood Type Antibody Screen Crossmatch BBK History Checked Assessment & Plan - Assessment and Plan (Free Text) Assessment: 77F with BL pneumothorax S/P CPR Plan: -BL chest tubes placed at bedside with near complete resolution of the pneumothoraxes BL. -Keep chest tubes to continuous wall suction at -20mmHg. -Monitor strict chest tube output -repeat CXR in the AM -Continue management per the primary team and the ICU team Discussed with Dr. Saravia, further recs per him Lynette Aguiar, PGY2 Procedures - Chest Tube Chest Tube Location: Lateral Chest Right Size of Tube (cm): 28 Chest Tube Procedure: Chlorhexidine Tube Sutured to Skin: Yes Sterile Dressing Applied: Yes Anesthesia: Lidocaine 1% Volume Anesthetic (mls): 10 Incision Made With: #11 blade Post Procedure: sutured to skin, sterile dressing applied, air occlusive dressing [place] of [employer] [place]: Yes Tube Drainage: fluid Amount of Initial Drainage: 5 Post Procedure CXR?: Yes Patient Tolerated Procedure: Yes Complications: tube needs to be repositioned Progress: right chest tube retracted 2cm and re-sutured in place. Sterile occlusive dressing reapplied. Repeat CXR performed showing improved placement
--- NOTE | 2017-11-09 21:03 | CARD ---
APPROVED REPORT EKG Measurement Heart [id number] [place] 130P76 [id number] <Conclusion> Normal sinus rhythm Left axis deviation Low voltage QRS Inferior infarct, age undetermined Possible Anterolateral infarct, age undetermined Abnormal ECG
--- NOTE | 2017-11-09 21:11 | CARD ---
APPROVED REPORT EKG Measurement Heart [id number] SC 130P64 [id number] <Conclusion> Normal sinus rhythm Left axis deviation Possible Lateral infarct, age undetermined Abnormal ECG
--- NOTE | 2017-11-09 21:40 | PCM.PROC ---
Procedures Attestation:: I certify that I have explained the specified Operation(s) or Procedure(s), risks, benefits and reasonable alternatives to the Patient and/or other person responsible. The opportunity was given to ask questions and all questions answered - Chest Tube Chest Tube Location: Mid-Axillary Left Size of Tube (cm): 28 (Fr) Chest Tube Procedure: Chlorhexidine Tube Sutured to Skin: Yes Sterile Dressing Applied: Yes Anesthesia: Lidocaine 1% Volume Anesthetic (mls): 5 Incision Made With: #11 blade Post Procedure: sutured to skin, sterile dressing applied, air occlusive dressing [place] of [place]: Yes Tube Drainage: other (serosangenous) Amount of Initial Drainage: 10 (ml) Post Procedure CXR?: Yes Patient Tolerated Procedure: Yes Progress: Tube at 10 at skin, suture in place. CXR reviewed, good placement of tube and re -expansion
[2017-11-09] MEDS ORDERED: Dextrose 5%/0.45% NS 1,000 ML IV SCH (23:16)
[2017-11-10 00:47] LABS: ARTERIAL BLOOD GAS HCO3 23.7 mmol/L (21-28); ARTERIAL BLOOD GAS O2 SAT 99.6 % (95-98); ARTERIAL BLOOD GAS PCO2 42 mm/Hg (35-45); ARTERIAL BLOOD GAS PH 7.36 (7.35-7.45)
[2017-11-10] MEDS: Levalbuterol 0.63 MG/3 ML Inhal Soln UD IH SCH ×4 (02:00→19:38)
[2017-11-10 05:37] LABS: ALBUMIN 3.1 g/dL (3.0-4.8); BASO # 0.01 K/mm3 (0.0-2.0); BASO % 0.2 % (0.0-3.0); CALCIUM 9.2 mg/dL (8.4-10.5); HEMOGLOBIN 11.1 g/dL (12.0-16.0); LYMPH # 0.5 (1.2-3.4); LYMPH % 8.6 % (22.0-35.0); MAGNESIUM 1.8 mg/dL (1.7-2.2); MEAN CELL VOLUME 95.4 fl (80.0-105.0); MEAN CORPUSCULAR HEMOGLOBIN 29.8 pg (25.0-35.0); MEAN CORPUSCULAR HGB CONC 31.2 g/dl (31.0-37.0); MEAN PLATELET VOLUME 10.1 fl (7.0-11.0); MONO # 0.4 (0.1-0.6); MONO % 7.2 % (1.0-6.0); PLATELET COUNT 351 10^3/uL (120.0-450.0); RBC 3.73 10^6/uL (3.5-6.1); RED CELL DISTRIBUTION WIDTH 17.4 % (11.5-14.5); WHITE BLOOD COUNT 5.7 10^3/ul (4.5-11.0)
[2017-11-10 05:37] LABS: VENOUS BLOOD GAS BASE EXCESS 0.4 mmol/L (0.0-2.0); VENOUS BLOOD GAS PO2 62 mm/Hg (30-55); VENOUS BLOOD PH 7.31 (7.32-7.43)
[2017-11-10 06:38] LABS: NEUTROPHIL 69 % (50.0-70.0)
[2017-11-10 06:40] LABS: BAND 14 % (0-2)
[2017-11-10 06:41] LABS: LARGE PLATELETS PRESENT; LYMPHOCYTE 9 % (22.0-35.0); MONOCYTE 6 % (1.0-6.0); MYELOCYTE 2 %; PLATELET ESTIMATE NORMAL (NORMAL)
--- NOTE | 2017-11-10 07:29 | CP.PCM.PN ---
Subjective - Date & Time of Evaluation Date of Evaluation: 11/10/17 Time of Evaluation: 07:26 - Subjective Subjective: Surgery: Dr. Saravia Patient remains intubated and sedated. Chest tubes on suction. Objective - Vital Signs/Intake and Output Vital Signs (last 24 hours): Temp Pulse Resp BP Pulse Ox 97.8 F 84 21 147/88 100 11/10/17 04:00 11/10/17 06:58 11/10/17 05:30 11/10/17 06:18 11/10/17 06:18 Intake and Output: 11/10/17 11/10/17 06:59 18:59 Intake Total 1525 Output Total 440 Balance 1085 - Medications Medications: Current Medications Acetaminophen (Tylenol 325mg Tab) 650 mg PO Q4H PRN PRN Reason: Fever >100.4 F Last Admin: 11/03/17 16:31 Dose: 650 mg Calcium Acetate (Phoslo) 667 mg PO WM [facility] Last Admin: 11/09/17 18:47 Dose: Not Given Famotidine (Pepcid) 20 mg IVP DAILY [facility] Last Admin: 11/09/17 10:10 Dose: 20 mg Heparin Sodium (Porcine) (Heparin) 5,000 units SC Q12 [facility] PRN Reason: Protocol Last Admin: 11/09/17 21:33 Dose: 5,000 units Hydralazine HCl (Apresoline) 10 mg IVP Q6H PRN PRN Reason: Systolic Blood Pressure Valproate Sodium 500 mg/ (Sodium Chloride) 105 mls @ 100 mls/hr IVPB BID [facility] Last Admin: 11/09/17 18:47 Dose: 100 mls/hr Meropenem 250 mg/ Sodium (Chloride) 100 mls @ 100 mls/hr IVPB Q12H [facility] PRN Reason: Protocol Stop: 11/16/17 18:16 Last Admin: 11/10/17 05:16 Dose: 100 mls/hr Propofol (Diprivan) 1,000 mg in 100 mls @ 1.334 mls/hr IV .Q24H PRN; Protocol; 5 MCG/KG/MIN PRN Reason: TITRATE PER MD ORDER Last Titration: 11/09/17 14:40 Dose: 0 mcg/kg/min, 0 mls/hr Dextrose/Sodium Chloride (Dextrose 5%/0.45% Ns 1000 Ml) 1,000 mls @ 85 mls/hr IV .[id number] [facility] Last Admin: 11/10/17 01:37 Dose: 85 mls/hr Levalbuterol HCl (Xopenex) 0.63 mg IH [id number] [facility] Last Admin: 11/10/17 02:00 Dose: 0.63 mg Levalbuterol HCl (Xopenex) 0.63 mg IH Q2 PRN PRN Reason: Shortness of Breath Last Admin: 11/07/17 09:40 Dose: 0.63 mg - Labs Labs: 11/10/17 04:55 11/10/17 04:55 PT 11.8 SECONDS (9.4-12.5) 11/09/17 18:32 INR 1.03 (0.93-1.08) 11/09/17 18:32 APTT 31.1 Seconds (25.1-36.5) 11/09/17 18:32 - Constitutional Appears: Toxic - Head Exam Head Exam: ATRAUMATIC, NORMOCEPHALIC - ENT Exam ENT Exam: Mucous Membranes Moist - Respiratory Exam Additional comments: on mechanical vent with bilaterally chest tubes - Cardiovascular Exam Cardiovascular Exam: REGULAR RHYTHM. absent: Tachycardia Assessment and Plan - Assessment and Plan (Free Text) Assessment: 77 y/o female s/p cardiac arrest and bilateral pneumothorax s/p chest tube placement Plan: -CXR this am without pnx, ok to place tubes on water seal -CXR in am -monitor output -pulmonary toilet -further recs per Dr. Manjit Anand PGY3
--- NOTE | 2017-11-10 07:30 | RAD ---
HISTORY: right chest tube placement COMPARISON: Portable chest 11/09/2017 9:07 p.m.. FINDINGS: Bilateral chest tubes remain are noted once again with right chest tube slightly retracted from the right apex. Left chest tube unchanged in position. Endotracheal tube, nasogastric tube and left PICC unchanged in position as well. LUNGS: Trace atelectasis question at the left base. A right-sided infiltrate. PLEURA: Trace of pleural effusion is not excluded. No right pleural effusion. No pneumothorax bilaterally once again. CARDIOVASCULAR: Cardiomediastinal silhouette appears stable. No pulmonary vascular derangement identified. OSSEOUS STRUCTURES: No significant abnormalities. VISUALIZED UPPER ABDOMEN: Normal. OTHER FINDINGS: Stable limited emphysematous changes seen in the as transthoracic soft tissues bilaterally. IMPRESSION: Stable chest radiograph with bilateral chest tube noted in position. The right chest tube is been retracted slightly. Trace atelectasis remains at the left base with minimal left pleural effusion not excluded.
--- NOTE | 2017-11-10 07:30 | RAD ---
HISTORY: S/P BL chest tube placement COMPARISON: Portable chest 11/09/2017 6:44 p.m. FINDINGS: Bilateral chest tubes are identified placed with the left chest tube terminating at the superior left lung zone and right chest tube terminating at the right apex superiorly. Endotracheal tube is unchanged in position as well as left PICC insertion. Nasogastric tube is again seen coiled at the left upper quadrant. LUNGS: Minimal atelectasis is suggested at the left base with none clearly identified at the right. PLEURA: Trace residual pneumothorax may remain at the inferior right lung zone with trace residual at the left periaortic space potentially. Trace left pleural effusion is in question. CARDIOVASCULAR: Cardiomediastinal silhouette appears stable. No definite pulmonary vascular derangement. OSSEOUS STRUCTURES: No significant abnormalities. VISUALIZED UPPER ABDOMEN: Normal. OTHER FINDINGS: Minimal extrathoracic emphysematous changes seen the right greater than left extra thoracic chest soft tissues. IMPRESSION: Status post bilateral chest tube deployment with trace residual pneumothorax questioned at the right base laterally and left periaortic space representing marked improvement in bilateral pneumothoraces. Trace left pleural effusion in question as well as minimal left basilar atelectasis.
--- NOTE | 2017-11-10 07:38 | RAD ---
HISTORY: BL pneumothorax with BL chest tubes COMPARISON: Portable chest 11/09/2017 9:48 p.m.. FINDINGS: Bilateral chest tubes appear unchanged in position as well as nasogastric tube and endotracheal tube. Left PICC is unchanged, terminating at the brachiocephalic vein. LUNGS: No right-sided infiltrate in the interval. Diminishing left basilar atelectasis is appreciated nearly completely resolved. PLEURA: No significant pleural effusion identified, no right pneumothorax apparent. Trace lateral left periaortic pneumothorax remains in question. CARDIOVASCULAR: Cardiomediastinal silhouette is stable. No pulmonary derangement. OSSEOUS STRUCTURES: No significant abnormalities. VISUALIZED UPPER ABDOMEN: Normal. OTHER FINDINGS: Diminishing extrathoracic emphysematous change right chest wall, unchanged at the left. IMPRESSION: Trace left lateral periaortic pneumothorax remains in question. No right pneumothorax. Diminishing left basilar atelectasis nearly completely resolved. Trace of pleural effusion not excluded.
--- NOTE | 2017-11-10 07:41 | CP.CCUPN ---
<Lina Torres - Last Filed: 11/10/17 10:44> CCU Subjective - Physician Review Subjective (Free Text): 11/10/17 07:34 Patient's condition deteriorated yesterday night, had PEA arrest for about 13 minutes, had multiple rounds of chest compression and epi, and retained ROSC after multiple rounds of suctioning. Post arrest, patient developed john pneumothorax, chest tube were inserted and connected to the suction. Patient remained stable afterward. Thus AM, patient appears drowsy, but awakens with tactile stimulus. As per night nurse, patient had episodes of hypertension, however BP eventually improved. Critical Care Time Spent (in minutes): 45 CCU Objective - Vital Signs / Intake & Output Vital Signs (Last 4 hours): Vital Signs Temp Pulse Resp BP Pulse Ox 11/10/17 06:58 84 11/10/17 06:18 84 147/88 100 11/10/17 06:00 71 165/101 H 100 11/10/17 05:30 78 21 156/95 H 100 11/10/17 05:00 86 170/103 H 100 11/10/17 04:30 81 164/94 H 100 11/10/17 04:00 97.8 F 83 20 147/98 H 100 Intake and Output (Last 8hrs): Intake & Output 11/09/17 11/10/17 11/10/17 22:59 06:59 14:59 Intake Total 780 1525 Output Total 440 Balance 780 1085 Weight 98 lb 7 oz Intake: IV 780 1525 IVPB 100 Left Upper arm 1000 d5 0.5ns 780 425 Output: Chest Tube Drainage 90 Left 50 Right 40 Urine 350 Urethral (Basurto) 350 - Physical Exam Head: Positive for: Atraumatic, Normocephalic Pupils: Positive for: PERRL Extroacular Muscles: Positive for: EOMI Conjunctiva: Positive for: Normal Mouth: Positive for: Moist Mucous Membranes, Other (ETT) Neck: Positive for: Normal Range of Motion Respiratory/Chest: Positive for: Good Air Exchange, Other (+ Coarse breath sounds on vent. + John chest tube ). Negative for: Respiratory Distress, Accessory Muscle Use, Wheezes, Decreased Breath Sounds, Rales, Retracting, Rhonchi, Tachypneic Cardiovascular: Positive for: Regular Rate and Rhythm, Normal S1, S2, Bradycardic. Negative for: Murmurs, Tachycardic Abdomen: Positive for: Normal Bowel Sounds. Negative for: Tenderness, Distention, Peritoneal Signs, Mass/Organomegaly Back: Positive for: Normal Inspection Upper Extremity: Positive for: Normal Inspection. Negative for: Edema Lower Extremity: Positive for: Normal Inspection. Negative for: Edema Neurological: Negative for: Speech Normal (nonverbal), Other (no focal deficits) Skin: Positive for: Warm, Dry Psychiatric: Positive for: Lethargic - Medications Active Medications: Active Medications Generic Name Dose Route Start Last Admin Trade Name Freq PRN Reason Stop Dose Admin Acetaminophen 650 mg 11/03/17 16:14 11/03/17 16:31 Tylenol 325mg Tab PO 650 mg Q4H PRN Administration Fever >100.4 F Calcium Acetate 667 mg 11/03/17 17:00 11/09/17 18:47 Phoslo PO Not Given WM DAVID Famotidine 20 mg 11/09/17 10:00 11/09/17 10:10 Pepcid IVP 20 mg DAILY DAVID Administration Heparin Sodium (Porcine) 5,000 units 11/09/17 10:00 11/09/17 21:33 Heparin SC 5,000 units Q12 DAVID Administration Protocol Hydralazine HCl 10 mg 11/10/17 03:45 Apresoline IVP Q6H PRN Systolic Blood Pressure Valproate Sodium 500 mg/ 105 mls @ 100 mls/hr 11/07/17 18:00 11/09/17 18:47 Sodium Chloride IVPB 100 mls/hr BID DAVID Administration Meropenem 250 mg/ Sodium 100 mls @ 100 mls/hr 11/07/17 18:15 11/10/17 05:16 Chloride IVPB 11/16/17 18:16 100 mls/hr Q12H DAVID Administration Protocol Propofol 1,000 mg in 100 mls @ 1.334 mls/hr 11/09/17 09:06 11/09/17 14:40 Diprivan IV 0 mcg/kg/min .Q24H PRN 0 mls/hr TITRATE PER MD ORDER Titration Protocol 5 MCG/KG/MIN Dextrose/Sodium Chloride 1,000 mls @ 85 mls/hr 11/09/17 23:16 11/10/17 01:37 Dextrose 5%/0.45% Ns 1000 Ml IV 85 mls/hr .[id number] DAVID Administration Levalbuterol HCl 0.63 mg 11/07/17 14:00 11/10/17 02:00 Xopenex IH 0.63 mg [id number] DAVID Administration Levalbuterol HCl 0.63 mg 11/07/17 09:26 11/07/17 09:40 Xopenex IH 0.63 mg Q2 PRN Administration Shortness of Breath - Patient Studies Lab Studies: Microbiology Studies 11/07/17 00:10 Blood Culture - Preliminary Blood NO GROWTH AFTER 48 HOURS 11/07/17 00:00 Blood Culture - Preliminary Blood NO GROWTH AFTER 48 HOURS 11/07/17 01:55 Urine Culture - Final Urine No Growth (<1,000 CFU/ML) Lab Studies 11/10/17 11/10/17 11/10/17 Range/Units 05:00 04:55 04:55 WBC (4.5-11.0) 10^3/ul RBC (3.5-6.1) 10^6/uL Hgb (12.0-16.0) g/dL Hct (36.0-48.0) % MCV (80.0-105.0) fl MCH (25.0-35.0) pg MCHC (31.0-37.0) g/dl RDW (11.5-14.5) % Plt Count (120.0-450.0) 10^3/uL MPV (7.0-11.0) fl Gran % (50.0-68.0) % Lymph % (Auto) (22.0-35.0) % Larue % (Auto) (1.0-6.0) % Eos % (Auto) (1.5-5.0) % Baso % (Auto) (0.0-3.0) % Gran # (1.4-6.5) Lymph # (Auto) (1.2-3.4) Larue # (Auto) (0.1-0.6) Eos # (Auto) (0.0-0.7) Baso # (Auto) (0.0-2.0) K/mm3 Neutrophils % (Manual) (50.0-70.0) % Band Neutrophils % (0-2) % Lymphocytes % (Manual) (22.0-35.0) % Monocytes % (Manual) (1.0-6.0) % Myelocytes % % Platelet Evaluation (NORMAL) Large Platelets PT (9.4-12.5) SECONDS INR (0.93-1.08) APTT (25.1-36.5) Seconds pCO2 (35-45) mm/Hg pO2 62 H (30-55) mm/Hg HCO3 (21-28) mmol/L ABG pH (7.35-7.45) ABG Total CO2 (22-28) mmol.L ABG O2 Saturation (95-98) % ABG Base Excess (-2.0-3.0) mmol/L ABG Potassium (3.6-5.2) mmol/L VBG pH 7.31 L (7.32-7.43) VBG pCO2 55.0 (40-60) VBG HCO3 27.7 (21-28) mmol/l VBG Total CO2 29.4 H (22-28) mmol.L VBG O2 Sat (Calc) 95.4 H (40-65) % VBG Base Excess 0.4 (0.0-2.0) mmol/L VBG Potassium 4.1 (3.6-5.2) mmol/L Glucose 121 H (65-105) mg/dl Lactate 1.5 (0.7-2.1) mmol/L FiO2 21.0 % Sodium 144.0 147 (132-148) mmol/L Potassium 3.9 (3.6-5.0) mmol/L Chloride 111.0 H 107 (98-107) mmol/L Carbon Dioxide 28 (21-33) mmol/L Anion Gap 17 (10-20) BUN 50 H (7-21) mg/dL Creatinine 4.0 H (0.7-1.2) mg/dl Est GFR ( Amer) 13 Est GFR (Non-Af Amer) 11 POC Glucose (mg/dL) (65-110) mg/dL Random Glucose 112 H (70-110) mg/dL Calcium 9.2 (8.4-10.5) mg/dL Phosphorus 4.5 (2.5-4.5) mg/dL Magnesium 1.8 (1.7-2.2) mg/dL Total Bilirubin 0.4 (0.2-1.3) mg/dL AST 125 H D (14-36) U/L ALT 93 H (7-56) U/L Alkaline Phosphatase 153 H (38-126) U/L Ammonia (9-33) umol/L Lactate Dehydrogenase (333-699) U/L Total Creatine Kinase (35-230) U/L Troponin I ng/mL Total Protein 6.3 (5.8-8.3) g/dL Albumin 3.1 (3.0-4.8) g/dL Globulin 3.2 gm/dL Albumin/Globulin Ratio 1.0 L (1.1-1.8) PTH Intact Whole Molec (14-64) pg/mL Arterial Blood Potassium (3.6-5.2) mmol/L Venous Blood Potassium 4.1 (3.6-5.2) mmol/L Valproic Acid 14 L (50.0-100.0) ug/mL 11/10/17 11/10/17 11/10/17 Range/Units 04:55 04:55 00:44 WBC 5.7 D (4.5-11.0) 10^3/ul RBC 3.73 (3.5-6.1) 10^6/uL Hgb 11.1 L (12.0-16.0) g/dL Hct 35.6 L (36.0-48.0) % MCV 95.4 (80.0-105.0) fl MCH 29.8 (25.0-35.0) pg MCHC 31.2 (31.0-37.0) g/dl RDW 17.4 H (11.5-14.5) % Plt Count 351 (120.0-450.0) 10^3/uL MPV 10.1 (7.0-11.0) fl Gran % 84.0 H (50.0-68.0) % Lymph % (Auto) 8.6 L (22.0-35.0) % Larue % (Auto) 7.2 H (1.0-6.0) % Eos % (Auto) 0.0 L (1.5-5.0) % Baso % (Auto) 0.2 (0.0-3.0) % Gran # 4.80 (1.4-6.5) Lymph # (Auto) 0.5 L (1.2-3.4) Larue # (Auto) 0.4 (0.1-0.6) Eos # (Auto) 0.0 (0.0-0.7) Baso # (Auto) 0.01 (0.0-2.0) K/mm3 Neutrophils % (Manual) 69 (50.0-70.0) % Band Neutrophils % 14 H* (0-2) % Lymphocytes % (Manual) 9 L (22.0-35.0) % Monocytes % (Manual) 6 (1.0-6.0) % Myelocytes % 2 % Platelet Evaluation Normal (NORMAL) Large Platelets Present PT (9.4-12.5) SECONDS INR (0.93-1.08) APTT (25.1-36.5) Seconds pCO2 42 (35-45) mm/Hg pO2 163.0 H (30-55) mm/Hg HCO3 23.7 (21-28) mmol/L ABG pH 7.36 (7.35-7.45) ABG Total CO2 25.0 (22-28) mmol.L ABG O2 Saturation 99.6 H (95-98) % ABG Base Excess -1.8 (-2.0-3.0) mmol/L ABG Potassium 3.5 L (3.6-5.2) mmol/L VBG pH (7.32-7.43) VBG pCO2 (40-60) VBG HCO3 (21-28) mmol/l VBG Total CO2 (22-28) mmol.L VBG O2 Sat (Calc) (40-65) % VBG Base Excess (0.0-2.0) mmol/L VBG Potassium (3.6-5.2) mmol/L Glucose 107 H (65-105) mg/dl Lactate 0.8 (0.7-2.1) mmol/L FiO2 50.0 % Sodium 145.0 (132-148) mmol/L Potassium (3.6-5.0) mmol/L Chloride 114.0 H (98-107) mmol/L Carbon Dioxide (21-33) mmol/L Anion Gap (10-20) BUN (7-21) mg/dL Creatinine (0.7-1.2) mg/dl Est GFR ( Amer) Est GFR (Non-Af Amer) POC Glucose (mg/dL) (65-110) mg/dL Random Glucose (70-110) mg/dL Calcium (8.4-10.5) mg/dL Phosphorus (2.5-4.5) mg/dL Magnesium (1.7-2.2) mg/dL Total Bilirubin (0.2-1.3) mg/dL AST (14-36) U/L ALT (7-56) U/L Alkaline Phosphatase (38-126) U/L Ammonia < 9 L (9-33) umol/L Lactate Dehydrogenase (333-699) U/L Total Creatine Kinase (35-230) U/L Troponin I ng/mL Total Protein (5.8-8.3) g/dL Albumin (3.0-4.8) g/dL Globulin gm/dL Albumin/Globulin Ratio (1.1-1.8) PTH Intact Whole Molec (14-64) pg/mL Arterial Blood Potassium 3.5 L (3.6-5.2) mmol/L Venous Blood Potassium (3.6-5.2) mmol/L Valproic Acid (50.0-100.0) ug/mL 11/09/17 11/09/17 11/09/17 Range/Units 22:16 18:32 18:32 WBC 8.3 D (4.5-11.0) 10^3/ul RBC 3.76 (3.5-6.1) 10^6/uL Hgb 11.3 L (12.0-16.0) g/dL Hct 36.5 (36.0-48.0) % MCV 97.1 D (80.0-105.0) fl MCH 30.1 (25.0-35.0) pg MCHC 31.0 (31.0-37.0) g/dl RDW 17.5 H (11.5-14.5) % Plt Count 308 (120.0-450.0) 10^3/uL MPV 10.6 (7.0-11.0) fl Gran % (50.0-68.0) % Lymph % (Auto) (22.0-35.0) % Larue % (Auto) (1.0-6.0) % Eos % (Auto) (1.5-5.0) % Baso % (Auto) (0.0-3.0) % Gran # (1.4-6.5) Lymph # (Auto) (1.2-3.4) Larue # (Auto) (0.1-0.6) Eos # (Auto) (0.0-0.7) Baso # (Auto) (0.0-2.0) K/mm3 Neutrophils % (Manual) (50.0-70.0) % Band Neutrophils % (0-2) % Lymphocytes % (Manual) (22.0-35.0) % Monocytes % (Manual) (1.0-6.0) % Myelocytes % % Platelet Evaluation (NORMAL) Large Platelets PT 11.8 (9.4-12.5) SECONDS INR 1.03 (0.93-1.08) APTT 31.1 (25.1-36.5) Seconds pCO2 (35-45) mm/Hg pO2 (30-55) mm/Hg HCO3 (21-28) mmol/L ABG pH (7.35-7.45) ABG Total CO2 (22-28) mmol.L ABG O2 Saturation (95-98) % ABG Base Excess (-2.0-3.0) mmol/L ABG Potassium (3.6-5.2) mmol/L VBG pH (7.32-7.43) VBG pCO2 (40-60) VBG HCO3 (21-28) mmol/l VBG Total CO2 (22-28) mmol.L VBG O2 Sat (Calc) (40-65) % VBG Base Excess (0.0-2.0) mmol/L VBG Potassium (3.6-5.2) mmol/L Glucose (65-105) mg/dl Lactate (0.7-2.1) mmol/L FiO2 % Sodium (132-148) mmol/L Potassium (3.6-5.0) mmol/L Chloride (98-107) mmol/L Carbon Dioxide (21-33) mmol/L Anion Gap (10-20) BUN (7-21) mg/dL Creatinine (0.7-1.2) mg/dl Est GFR ( Amer) Est GFR (Non-Af Amer) POC Glucose (mg/dL) 122 H (65-110) mg/dL Random Glucose (70-110) mg/dL Calcium (8.4-10.5) mg/dL Phosphorus (2.5-4.5) mg/dL Magnesium (1.7-2.2) mg/dL Total Bilirubin (0.2-1.3) mg/dL AST (14-36) U/L ALT (7-56) U/L Alkaline Phosphatase (38-126) U/L Ammonia (9-33) umol/L Lactate Dehydrogenase (333-699) U/L Total Creatine Kinase (35-230) U/L Troponin I ng/mL Total Protein (5.8-8.3) g/dL Albumin (3.0-4.8) g/dL Globulin gm/dL Albumin/Globulin Ratio (1.1-1.8) PTH Intact Whole Molec (14-64) pg/mL Arterial Blood Potassium (3.6-5.2) mmol/L Venous Blood Potassium (3.6-5.2) mmol/L Valproic Acid (50.0-100.0) ug/mL 11/09/17 11/09/17 11/09/17 Range/Units 18:32 18:32 18:10 WBC (4.5-11.0) 10^3/ul RBC (3.5-6.1) 10^6/uL Hgb (12.0-16.0) g/dL Hct (36.0-48.0) % MCV (80.0-105.0) fl MCH (25.0-35.0) pg MCHC (31.0-37.0) g/dl RDW (11.5-14.5) % Plt Count (120.0-450.0) 10^3/uL MPV (7.0-11.0) fl Gran % (50.0-68.0) % Lymph % (Auto) (22.0-35.0) % Larue % (Auto) (1.0-6.0) % Eos % (Auto) (1.5-5.0) % Baso % (Auto) (0.0-3.0) % Gran # (1.4-6.5) Lymph # (Auto) (1.2-3.4) Larue # (Auto) (0.1-0.6) Eos # (Auto) (0.0-0.7) Baso # (Auto) (0.0-2.0) K/mm3 Neutrophils % (Manual) (50.0-70.0) % Band Neutrophils % (0-2) % Lymphocytes % (Manual) (22.0-35.0) % Monocytes % (Manual) (1.0-6.0) % Myelocytes % % Platelet Evaluation (NORMAL) Large Platelets PT (9.4-12.5) SECONDS INR (0.93-1.08) APTT (25.1-36.5) Seconds pCO2 (35-45) mm/Hg pO2 304 H (30-55) mm/Hg HCO3 (21-28) mmol/L ABG pH (7.35-7.45) ABG Total CO2 (22-28) mmol.L ABG O2 Saturation (95-98) % ABG Base Excess (-2.0-3.0) mmol/L ABG Potassium (3.6-5.2) mmol/L VBG pH 7.17 L* (7.32-7.43) VBG pCO2 95.0 H* (40-60) VBG HCO3 34.7 H (21-28) mmol/l VBG Total CO2 37.6 H (22-28) mmol.L VBG O2 Sat (Calc) 100.4 H (40-65) % VBG Base Excess 3.0 H (0.0-2.0) mmol/L VBG Potassium 5.0 (3.6-5.2) mmol/L Glucose 162 H (65-105) mg/dl Lactate 7.0 H* (0.7-2.1) mmol/L FiO2 21.0 % Sodium 150.0 H 154 H (132-148) mmol/L Potassium 4.9 (3.6-5.0) mmol/L Chloride 109.0 H 105 (98-107) mmol/L Carbon Dioxide 30 (21-33) mmol/L Anion Gap 24 H (10-20) BUN 50 H (7-21) mg/dL Creatinine 3.9 H (0.7-1.2) mg/dl Est GFR ( Amer) 14 Est GFR (Non-Af Amer) 11 POC Glucose (mg/dL) 118 H (65-110) mg/dL Random Glucose 161 H (70-110) mg/dL Calcium 9.4 (8.4-10.5) mg/dL Phosphorus (2.5-4.5) mg/dL Magnesium 2.2 (1.7-2.2) mg/dL Total Bilirubin 0.4 (0.2-1.3) mg/dL AST 59 H D (14-36) U/L ALT 47 (7-56) U/L Alkaline Phosphatase 154 H D (38-126) U/L Ammonia (9-33) umol/L Lactate Dehydrogenase 867 H (333-699) U/L Total Creatine Kinase 54 (35-230) U/L Troponin I 0.06 ng/mL Total Protein 5.9 (5.8-8.3) g/dL Albumin 3.0 (3.0-4.8) g/dL Globulin 2.9 gm/dL Albumin/Globulin Ratio 1.0 L (1.1-1.8) PTH Intact Whole Molec (14-64) pg/mL Arterial Blood Potassium (3.6-5.2) mmol/L Venous Blood Potassium 5.0 (3.6-5.2) mmol/L Valproic Acid (50.0-100.0) ug/mL 11/09/17 11/09/17 11/09/17 Range/Units 16:14 11:36 07:22 WBC (4.5-11.0) 10^3/ul RBC (3.5-6.1) 10^6/uL Hgb (12.0-16.0) g/dL Hct (36.0-48.0) % MCV (80.0-105.0) fl MCH (25.0-35.0) pg MCHC (31.0-37.0) g/dl RDW (11.5-14.5) % Plt Count (120.0-450.0) 10^3/uL MPV (7.0-11.0) fl Gran % (50.0-68.0) % Lymph % (Auto) (22.0-35.0) % Larue % (Auto) (1.0-6.0) % Eos % (Auto) (1.5-5.0) % Baso % (Auto) (0.0-3.0) % Gran # (1.4-6.5) Lymph # (Auto) (1.2-3.4) Larue # (Auto) (0.1-0.6) Eos # (Auto) (0.0-0.7) Baso # (Auto) (0.0-2.0) K/mm3 Neutrophils % (Manual) (50.0-70.0) % Band Neutrophils % (0-2) % Lymphocytes % (Manual) (22.0-35.0) % Monocytes % (Manual) (1.0-6.0) % Myelocytes % % Platelet Evaluation (NORMAL) Large Platelets PT (9.4-12.5) SECONDS INR (0.93-1.08) APTT (25.1-36.5) Seconds pCO2 (35-45) mm/Hg pO2 (30-55) mm/Hg HCO3 (21-28) mmol/L ABG pH (7.35-7.45) ABG Total CO2 (22-28) mmol.L ABG O2 Saturation (95-98) % ABG Base Excess (-2.0-3.0) mmol/L ABG Potassium (3.6-5.2) mmol/L VBG pH (7.32-7.43) VBG pCO2 (40-60) VBG HCO3 (21-28) mmol/l VBG Total CO2 (22-28) mmol.L VBG O2 Sat (Calc) (40-65) % VBG Base Excess (0.0-2.0) mmol/L VBG Potassium (3.6-5.2) mmol/L Glucose (65-105) mg/dl Lactate (0.7-2.1) mmol/L FiO2 % Sodium (132-148) mmol/L Potassium (3.6-5.0) mmol/L Chloride (98-107) mmol/L Carbon Dioxide (21-33) mmol/L Anion Gap (10-20) BUN (7-21) mg/dL Creatinine (0.7-1.2) mg/dl Est GFR ( Amer) Est GFR (Non-Af Amer) POC Glucose (mg/dL) 82 75 71 (65-110) mg/dL Random Glucose (70-110) mg/dL Calcium (8.4-10.5) mg/dL Phosphorus (2.5-4.5) mg/dL Magnesium (1.7-2.2) mg/dL Total Bilirubin (0.2-1.3) mg/dL AST (14-36) U/L ALT (7-56) U/L Alkaline Phosphatase (38-126) U/L Ammonia (9-33) umol/L Lactate Dehydrogenase (333-699) U/L Total Creatine Kinase (35-230) U/L Troponin I ng/mL Total Protein (5.8-8.3) g/dL Albumin (3.0-4.8) g/dL Globulin gm/dL Albumin/Globulin Ratio (1.1-1.8) PTH Intact Whole Molec (14-64) pg/mL Arterial Blood Potassium (3.6-5.2) mmol/L Venous Blood Potassium (3.6-5.2) mmol/L Valproic Acid (50.0-100.0) ug/mL 11/09/17 11/06/17 Range/Units 05:30 09:50 WBC (4.5-11.0) 10^3/ul RBC (3.5-6.1) 10^6/uL Hgb (12.0-16.0) g/dL Hct (36.0-48.0) % MCV (80.0-105.0) fl MCH (25.0-35.0) pg MCHC (31.0-37.0) g/dl RDW (11.5-14.5) % Plt Count (120.0-450.0) 10^3/uL MPV (7.0-11.0) fl Gran % (50.0-68.0) % Lymph % (Auto) (22.0-35.0) % Larue % (Auto) (1.0-6.0) % Eos % (Auto) (1.5-5.0) % Baso % (Auto) (0.0-3.0) % Gran # (1.4-6.5) Lymph # (Auto) (1.2-3.4) Larue # (Auto) (0.1-0.6) Eos # (Auto) (0.0-0.7) Baso # (Auto) (0.0-2.0) K/mm3 Neutrophils % (Manual) (50.0-70.0) % Band Neutrophils % (0-2) % Lymphocytes % (Manual) (22.0-35.0) % Monocytes % (Manual) (1.0-6.0) % Myelocytes % % Platelet Evaluation (NORMAL) Large Platelets PT (9.4-12.5) SECONDS INR (0.93-1.08) APTT (25.1-36.5) Seconds pCO2 (35-45) mm/Hg pO2 (30-55) mm/Hg HCO3 (21-28) mmol/L ABG pH (7.35-7.45) ABG Total CO2 (22-28) mmol.L ABG O2 Saturation (95-98) % ABG Base Excess (-2.0-3.0) mmol/L ABG Potassium (3.6-5.2) mmol/L VBG pH (7.32-7.43) VBG pCO2 (40-60) VBG HCO3 (21-28) mmol/l VBG Total CO2 (22-28) mmol.L VBG O2 Sat (Calc) (40-65) % VBG Base Excess (0.0-2.0) mmol/L VBG Potassium (3.6-5.2) mmol/L Glucose (65-105) mg/dl Lactate (0.7-2.1) mmol/L FiO2 % Sodium 146 (132-148) mmol/L Potassium 4.1 (3.6-5.0) mmol/L Chloride 106 (98-107) mmol/L Carbon Dioxide 27 (21-33) mmol/L Anion Gap 18 (10-20) BUN 53 H (7-21) mg/dL Creatinine 4.3 H (0.7-1.2) mg/dl Est GFR ( Amer) 12 Est GFR (Non-Af Amer) 10 POC Glucose (mg/dL) (65-110) mg/dL Random Glucose 85 (70-110) mg/dL Calcium 9.7 (8.4-10.5) mg/dL Phosphorus 3.3 (2.5-4.5) mg/dL Magnesium 1.9 (1.7-2.2) mg/dL Total Bilirubin 0.6 (0.2-1.3) mg/dL AST 33 (14-36) U/L ALT 29 (7-56) U/L Alkaline Phosphatase 108 (38-126) U/L Ammonia (9-33) umol/L Lactate Dehydrogenase (333-699) U/L Total Creatine Kinase (35-230) U/L Troponin I ng/mL Total Protein 6.8 (5.8-8.3) g/dL Albumin 3.3 (3.0-4.8) g/dL Globulin 3.4 gm/dL Albumin/Globulin Ratio 1.0 L (1.1-1.8) PTH Intact Whole Molec 292 H (14-64) pg/mL Arterial Blood Potassium (3.6-5.2) mmol/L Venous Blood Potassium (3.6-5.2) mmol/L Valproic Acid (50.0-100.0) ug/mL Laboratory Results - last 24 hr 11/06/17 11/09/17 11/09/17 09:50 05:30 07:22 WBC RBC Hgb Hct MCV MCH MCHC RDW Plt Count MPV Gran % Lymph % (Auto) Larue % (Auto) Eos % (Auto) Baso % (Auto) Gran # Lymph # (Auto) Larue # (Auto) Eos # (Auto) Baso # (Auto) Neutrophils % (Manual) Band Neutrophils % Lymphocytes % (Manual) Monocytes % (Manual) Myelocytes % Platelet Evaluation Large Platelets PT INR APTT pCO2 pO2 HCO3 ABG pH ABG Total CO2 ABG O2 Saturation ABG Base Excess ABG Potassium VBG pH VBG pCO2 VBG HCO3 VBG Total CO2 VBG O2 Sat (Calc) VBG Base Excess VBG Potassium Glucose Lactate FiO2 Sodium 146 Potassium 4.1 Chloride 106 Carbon Dioxide 27 Anion Gap 18 BUN 53 H Creatinine 4.3 H Est GFR ( Amer) 12 Est GFR (Non-Af Amer) 10 POC Glucose (mg/dL) 71 Random Glucose 85 Calcium 9.7 Phosphorus 3.3 Magnesium 1.9 Total Bilirubin 0.6 AST 33 ALT 29 Alkaline Phosphatase 108 Ammonia Lactate Dehydrogenase Total Creatine Kinase Troponin I Total Protein 6.8 Albumin 3.3 Globulin 3.4 Albumin/Globulin Ratio 1.0 L PTH Intact Whole Molec 292 H Arterial Blood Potassium Venous Blood Potassium Valproic Acid 11/09/17 11/09/17 11/09/17 11:36 16:14 18:10 WBC RBC Hgb Hct MCV MCH MCHC RDW Plt Count MPV Gran % Lymph % (Auto) Larue % (Auto) Eos % (Auto) Baso % (Auto) Gran # Lymph # (Auto) Larue # (Auto) Eos # (Auto) Baso # (Auto) Neutrophils % (Manual) Band Neutrophils % Lymphocytes % (Manual) Monocytes % (Manual) Myelocytes % Platelet Evaluation Large Platelets PT INR APTT pCO2 pO2 HCO3 ABG pH ABG Total CO2 ABG O2 Saturation ABG Base Excess ABG Potassium VBG pH VBG pCO2 VBG HCO3 VBG Total CO2 VBG O2 Sat (Calc) VBG Base Excess VBG Potassium Glucose Lactate FiO2 Sodium Potassium Chloride Carbon Dioxide Anion Gap BUN Creatinine Est GFR ( Amer) Est GFR (Non-Af Amer) POC Glucose (mg/dL) 75 82 118 H Random Glucose Calcium Phosphorus Magnesium Total Bilirubin AST ALT Alkaline Phosphatase Ammonia Lactate Dehydrogenase Total Creatine Kinase Troponin I Total Protein Albumin Globulin Albumin/Globulin Ratio PTH Intact Whole Molec Arterial Blood Potassium Venous Blood Potassium Valproic Acid 11/09/17 11/09/17 11/09/17 18:32 18:32 18:32 WBC 8.3 D RBC 3.76 Hgb 11.3 L Hct 36.5 MCV 97.1 D MCH 30.1 MCHC 31.0 RDW 17.5 H Plt Count 308 MPV 10.6 Gran % Lymph % (Auto) Larue % (Auto) Eos % (Auto) Baso % (Auto) Gran # Lymph # (Auto) Larue # (Auto) Eos # (Auto) Baso # (Auto) Neutrophils % (Manual) Band Neutrophils % Lymphocytes % (Manual) Monocytes % (Manual) Myelocytes % Platelet Evaluation Large Platelets PT INR APTT pCO2 pO2 304 H HCO3 ABG pH ABG Total CO2 ABG O2 Saturation ABG Base Excess ABG Potassium VBG pH 7.17 L* VBG pCO2 95.0 H* VBG HCO3 34.7 H VBG Total CO2 37.6 H VBG O2 Sat (Calc) 100.4 H VBG Base Excess 3.0 H VBG Potassium 5.0 Glucose 162 H Lactate 7.0 H* FiO2 21.0 Sodium 154 H 150.0 H Potassium 4.9 Chloride 105 109.0 H Carbon Dioxide 30 Anion Gap 24 H BUN 50 H Creatinine 3.9 H Est GFR ( Amer) 14 Est GFR (Non-Af Amer) 11 POC Glucose (mg/dL) Random Glucose 161 H Calcium 9.4 Phosphorus Magnesium 2.2 Total Bilirubin 0.4 AST 59 H D ALT 47 Alkaline Phosphatase 154 H D Ammonia Lactate Dehydrogenase 867 H Total Creatine Kinase 54 Troponin I 0.06 Total Protein 5.9 Albumin 3.0 Globulin 2.9 Albumin/Globulin Ratio 1.0 L PTH Intact Whole Molec Arterial Blood Potassium Venous Blood Potassium 5.0 Valproic Acid 11/09/17 11/09/17 11/10/17 18:32 22:16 00:44 WBC RBC Hgb Hct MCV MCH MCHC RDW Plt Count MPV Gran % Lymph % (Auto) Larue % (Auto) Eos % (Auto) Baso % (Auto) Gran # Lymph # (Auto) Larue # (Auto) Eos # (Auto) Baso # (Auto) Neutrophils % (Manual) Band Neutrophils % Lymphocytes % (Manual) Monocytes % (Manual) Myelocytes % Platelet Evaluation Large Platelets PT 11.8 INR 1.03 APTT 31.1 pCO2 42 pO2 163.0 H HCO3 23.7 ABG pH 7.36 ABG Total CO2 25.0 ABG O2 Saturation 99.6 H ABG Base Excess -1.8 ABG Potassium 3.5 L VBG pH VBG pCO2 VBG HCO3 VBG Total CO2 VBG O2 Sat (Calc) VBG Base Excess VBG Potassium Glucose 107 H Lactate 0.8 FiO2 50.0 Sodium 145.0 Potassium Chloride 114.0 H Carbon Dioxide Anion Gap BUN Creatinine Est GFR ( Amer) Est GFR (Non-Af Amer) POC Glucose (mg/dL) 122 H Random Glucose Calcium Phosphorus Magnesium Total Bilirubin AST ALT Alkaline Phosphatase Ammonia Lactate Dehydrogenase Total Creatine Kinase Troponin I Total Protein Albumin Globulin Albumin/Globulin Ratio PTH Intact Whole Molec Arterial Blood Potassium 3.5 L Venous Blood Potassium Valproic Acid 11/10/17 11/10/17 11/10/17 04:55 04:55 04:55 WBC 5.7 D RBC 3.73 Hgb 11.1 L Hct 35.6 L MCV 95.4 MCH 29.8 MCHC 31.2 RDW 17.4 H Plt Count 351 MPV 10.1 Gran % 84.0 H Lymph % (Auto) 8.6 L Larue % (Auto) 7.2 H Eos % (Auto) 0.0 L Baso % (Auto) 0.2 Gran # 4.80 Lymph # (Auto) 0.5 L Larue # (Auto) 0.4 Eos # (Auto) 0.0 Baso # (Auto) 0.01 Neutrophils % (Manual) 69 Band Neutrophils % 14 H* Lymphocytes % (Manual) 9 L Monocytes % (Manual) 6 Myelocytes % 2 Platelet Evaluation Normal Large Platelets Present PT INR APTT pCO2 pO2 HCO3 ABG pH ABG Total CO2 ABG O2 Saturation ABG Base Excess ABG Potassium VBG pH VBG pCO2 VBG HCO3 VBG Total CO2 VBG O2 Sat (Calc) VBG Base Excess VBG Potassium Glucose Lactate FiO2 Sodium 147 Potassium 3.9 Chloride 107 Carbon Dioxide 28 Anion Gap 17 BUN 50 H Creatinine 4.0 H Est GFR ( Amer) 13 Est GFR (Non-Af Amer) 11 POC Glucose (mg/dL) Random Glucose 112 H Calcium 9.2 Phosphorus 4.5 Magnesium 1.8 Total Bilirubin 0.4 AST 125 H D ALT 93 H Alkaline Phosphatase 153 H Ammonia < 9 L Lactate Dehydrogenase Total Creatine Kinase Troponin I Total Protein 6.3 Albumin 3.1 Globulin 3.2 Albumin/Globulin Ratio 1.0 L PTH Intact Whole Molec Arterial Blood Potassium Venous Blood Potassium Valproic Acid 11/10/17 11/10/17 04:55 05:00 WBC RBC Hgb Hct MCV MCH MCHC RDW Plt Count MPV Gran % Lymph % (Auto) Larue % (Auto) Eos % (Auto) Baso % (Auto) Gran # Lymph # (Auto) Larue # (Auto) Eos # (Auto) Baso # (Auto) Neutrophils % (Manual) Band Neutrophils % Lymphocytes % (Manual) Monocytes % (Manual) Myelocytes % Platelet Evaluation Large Platelets PT INR APTT pCO2 pO2 62 H HCO3 ABG pH ABG Total CO2 ABG O2 Saturation ABG Base Excess ABG Potassium VBG pH 7.31 L VBG pCO2 55.0 VBG HCO3 27.7 VBG Total CO2 29.4 H VBG O2 Sat (Calc) 95.4 H VBG Base Excess 0.4 VBG Potassium 4.1 Glucose 121 H Lactate 1.5 FiO2 21.0 Sodium 144.0 Potassium Chloride 111.0 H Carbon Dioxide Anion Gap BUN Creatinine Est GFR ( Amer) Est GFR (Non-Af Amer) POC Glucose (mg/dL) Random Glucose Calcium Phosphorus Magnesium Total Bilirubin AST ALT Alkaline Phosphatase Ammonia Lactate Dehydrogenase Total Creatine Kinase Troponin I Total Protein Albumin Globulin Albumin/Globulin Ratio PTH Intact Whole Molec Arterial Blood Potassium Venous Blood Potassium 4.1 Valproic Acid 14 L EKG/Cardiology Studies: Cardiology / EKG Studies 11/09/17 15:39 EKG [ELECTROCARDIOGRAM] Stat Comment: Reason For Exam: bradycardia 11/09/17 18:18 EKG [ELECTROCARDIOGRAM] Stat Comment: Reason For Exam: chest pain Fingerstick Blood Sugar Results: 122 Critical Care Progress Note - Ventilator Checklist Head of Bed 30 Degrees: Yes Daily Sedation Vacation: Yes Daily Assessment of Readiness to Wean: Yes Daily Spontaneous Breathing Trial: Yes PUD Prophalyxis: Yes DVT Prophylaxis: Yes Oral Care with Chlorhexidine Gluconate {CHG}: Yes - Vent Settings MODE:: PRVC TIDAL VOLUME:: 300 RESP RATE:: 20 FIO2:: 50 PEEP:: 5 - Extremities/Vascular Does the Patient have a Central Venous Catheter?: No Does the Patient have a Basurto Catheter?: Yes Does the Patient need a Basurto Catheter?: Yes Catheter Insertion Criteria: Patient requires prolonged immobilization - Restraints Justification for Restraints: High risk for self extubation - Prophylaxis GI Prophylaxis GI: Pepsid - Prophylaxis DVT Prophylaxis DVT: Heparin SQ - Nutrition Nutrition: Nutrition Category Date Time Status NPO Diet [DIET] Diets 11/07/17 Breakfast Ordered Assessment/Plan - Assessment and Plan (Free Text) Assessment: Patient is a 77 y/o with pmhx of dementia, copd, htn, ckd questionable cva who was recently discharged [place] [facility] s/p hypercapneic respiratory failure s/p intubation and extubation and discharged, was readmitted to due weakness and lethargy. Patient was found to have hypernatremia due to dehydration with AVERY on ckd stage 5, hypernatremia has since resolved. Patient was transferred from ICU to [facility] and while there, patient was noted to have seizure like activity and AMS, had to be intubated for airway protection. Yesterday while in ICU, patient became eunice, had PEA arrest, but regained ROSC after multiple rounds of chest compressions and epi. Plan: Neurology: Patient had episode of seizure like activity on the floor. - patient is on valproate iv, depakote level low, will follow up with neurology. - CT head with no acute ischemic changes 11/07, will repeat CT to reevaluate. - Neurology following, - Pending EEG reading - Sedation on fentanyl Pulm- h/o COPD with chronic CO2 retention, s/p intubated for airway protection. Patient now has john pneumothoarax s/p chest tube. - Repeat chest x-ray with re-expansion of the lung john, chest tube placed to water seal as per surgery. - Follow up repeat chest x-ray tomorrow - ABG reviewed - Continue with protected lung ventilation strategies, pulm toileting, head of bead elevation above 35 degrees. - Continue with bronchodilators. Cardio: HTN- on hydralazine prn for sbp above 160. Renal: Avery on ckd stage 5- creatinine is stable, nephrology is following, will continue to monitor Hypernatremia resolved. Endo: On D5 1/2 NS due to npo status, and to avoid hypoglycemia. Heme: Chronic anemia- patient had hemoglobin of 7.7 yesterday, s/p 2 units, h/h stable. - Will continue to monitor ID: Sepsis with UTI and pneumonia as the possible source. BCx with no growth , urine culture with enterococcus feacalis. Leukocytosis resolved, + bandemia. repeat chest x-ray with resolution of pneumonia Continue with merrem for uti/pna as per ID. GI: Will consider tube feeding if patient remains intubated. On Pepcid for Gi prophylaxis. Transaminitis likely shock liver from the code- will continue to monitor. DVT prophylaxis: heparin sc. Dispo-patient will likely need to be trached and likely need ltac. Patient seen, examined and case discussed with Dr Staples. - Date & Time Date: 11/10/17 Time: 09:25 <Fantasma Staples - Last Filed: 11/10/17 11:05> CCU Objective - Vital Signs / Intake & Output Vital Signs (Last 4 hours): Vital Signs Temp Pulse Resp BP Pulse Ox 11/10/17 10:00 91 H 13 142/88 100 11/10/17 09:00 88 137/101 H 100 11/10/17 08:00 99.4 F 89 160/103 H 100 11/10/17 07:37 20 100 Intake and Output (Last 8hrs): Intake & Output 11/09/17 11/10/17 11/10/17 22:59 06:59 14:59 Intake Total 780 1525 2 Output Total 440 Balance 780 1085 2 Weight 98 lb 7 oz Intake: IV 780 1525 2 IVPB 100 Left Upper arm 1000 d5 0.5ns 780 425 Output: Chest Tube Drainage 90 Left 50 Right 40 Urine 350 Urethral (Basurto) 350 - Medications Active Medications: Active Medications Generic Name Dose Route Start Last Admin Trade Name Freq PRN Reason Stop Dose Admin Acetaminophen 650 mg 11/03/17 16:14 11/03/17 16:31 Tylenol 325mg Tab PO 650 mg Q4H PRN Administration Fever >100.4 F Calcium Acetate 667 mg 11/03/17 17:00 11/10/17 09:28 Phoslo PO 667 mg WM DAVID Administration Famotidine 20 mg 11/09/17 10:00 11/10/17 09:28 Pepcid IVP 20 mg DAILY DAVID Administration Heparin Sodium (Porcine) 5,000 units 11/09/17 10:00 11/10/17 09:28 Heparin SC 5,000 units Q12 DAVID Administration Protocol Hydralazine HCl 10 mg 11/10/17 03:45 Apresoline IVP Q6H PRN Systolic Blood Pressure Valproate Sodium 500 mg/ 105 mls @ 100 mls/hr 11/07/17 18:00 11/10/17 09:27 Sodium Chloride IVPB 100 mls/hr BID DAVID Administration Meropenem 250 mg/ Sodium 100 mls @ 100 mls/hr 11/07/17 18:15 11/10/17 05:16 Chloride IVPB 11/16/17 18:16 100 mls/hr Q12H DAVID Administration Protocol Fentanyl Citrate 1,000 mcg in 100 mls @ 2 mls/hr 11/10/17 09:24 11/10/17 10: 45 Fentanyl Citrate/Sodium Chloride 1 Mg/100 Ml IV 50 mcg/hr .Q24H PRN 5 mls/hr TITRATE PER MD ORDER Titration Protocol 20 MCG/HR Dextrose/Sodium Chloride 1,000 mls @ 100 mls/hr 11/10/17 10:58 Dextrose 5%/0.45% Ns 1000 Ml IV .Q10H DAVID Levalbuterol HCl 0.63 mg 11/07/17 14:00 11/10/17 07:37 Xopenex IH 0.63 mg [id number] DAVID Administration Levalbuterol HCl 0.63 mg 11/07/17 09:26 11/07/17 09:40 Xopenex IH 0.63 mg Q2 PRN Administration Shortness of Breath - Patient Studies Lab Studies: Microbiology Studies 11/07/17 00:10 Blood Culture - Preliminary Blood NO GROWTH AFTER 48 HOURS 11/07/17 00:00 Blood Culture - Preliminary Blood NO GROWTH AFTER 48 HOURS 11/07/17 01:55 Urine Culture - Final Urine No Growth (<1,000 CFU/ML) Lab Studies 11/10/17 11/10/17 11/10/17 Range/Units 05:00 04:55 04:55 WBC (4.5-11.0) 10^3/ul RBC (3.5-6.1) 10^6/uL Hgb (12.0-16.0) g/dL Hct (36.0-48.0) % MCV (80.0-105.0) fl MCH (25.0-35.0) pg MCHC (31.0-37.0) g/dl RDW (11.5-14.5) % Plt Count (120.0-450.0) 10^3/uL MPV (7.0-11.0) fl Gran % (50.0-68.0) % Lymph % (Auto) (22.0-35.0) % Larue % (Auto) (1.0-6.0) % Eos % (Auto) (1.5-5.0) % Baso % (Auto) (0.0-3.0) % Gran # (1.4-6.5) Lymph # (Auto) (1.2-3.4) Larue # (Auto) (0.1-0.6) Eos # (Auto) (0.0-0.7) Baso # (Auto) (0.0-2.0) K/mm3 Neutrophils % (Manual) (50.0-70.0) % Band Neutrophils % (0-2) % Lymphocytes % (Manual) (22.0-35.0) % Monocytes % (Manual) (1.0-6.0) % Myelocytes % % Platelet Evaluation (NORMAL) Large Platelets PT (9.4-12.5) SECONDS INR (0.93-1.08) APTT (25.1-36.5) Seconds pCO2 (35-45) mm/Hg pO2 62 H (30-55) mm/Hg HCO3 (21-28) mmol/L ABG pH (7.35-7.45) ABG Total CO2 (22-28) mmol.L ABG O2 Saturation (95-98) % ABG Base Excess (-2.0-3.0) mmol/L ABG Potassium (3.6-5.2) mmol/L VBG pH 7.31 L (7.32-7.43) VBG pCO2 55.0 (40-60) VBG HCO3 27.7 (21-28) mmol/l VBG Total CO2 29.4 H (22-28) mmol.L VBG O2 Sat (Calc) 95.4 H (40-65) % VBG Base Excess 0.4 (0.0-2.0) mmol/L VBG Potassium 4.1 (3.6-5.2) mmol/L Sodium 144.0 147 (132-148) mmol/L Chloride 111.0 H 107 (98-107) mmol/L Glucose 121 H (65-105) mg/dl Lactate 1.5 (0.7-2.1) mmol/L FiO2 21.0 % Potassium 3.9 (3.6-5.0) mmol/L Carbon Dioxide 28 (21-33) mmol/L Anion Gap 17 (10-20) BUN 50 H (7-21) mg/dL Creatinine 4.0 H (0.7-1.2) mg/dl Est GFR ( Amer) 13 Est GFR (Non-Af Amer) 11 POC Glucose (mg/dL) (65-110) mg/dL Random Glucose 112 H (70-110) mg/dL Calcium 9.2 (8.4-10.5) mg/dL Phosphorus 4.5 (2.5-4.5) mg/dL Magnesium 1.8 (1.7-2.2) mg/dL Total Bilirubin 0.4 (0.2-1.3) mg/dL AST 125 H D (14-36) U/L ALT 93 H (7-56) U/L Alkaline Phosphatase 153 H (38-126) U/L Ammonia (9-33) umol/L Lactate Dehydrogenase (333-699) U/L Total Creatine Kinase (35-230) U/L Troponin I ng/mL Total Protein 6.3 (5.8-8.3) g/dL Albumin 3.1 (3.0-4.8) g/dL Globulin 3.2 gm/dL Albumin/Globulin Ratio 1.0 L (1.1-1.8) PTH Intact Whole Molec (14-64) pg/mL Arterial Blood Potassium (3.6-5.2) mmol/L Venous Blood Potassium 4.1 (3.6-5.2) mmol/L Valproic Acid 14 L (50.0-100.0) ug/mL 11/10/17 11/10/17 11/10/17 Range/Units 04:55 04:55 00:44 WBC 5.7 D (4.5-11.0) 10^3/ul RBC 3.73 (3.5-6.1) 10^6/uL Hgb 11.1 L (12.0-16.0) g/dL Hct 35.6 L (36.0-48.0) % MCV 95.4 (80.0-105.0) fl MCH 29.8 (25.0-35.0) pg MCHC 31.2 (31.0-37.0) g/dl RDW 17.4 H (11.5-14.5) % Plt Count 351 (120.0-450.0) 10^3/uL MPV 10.1 (7.0-11.0) fl Gran % 84.0 H (50.0-68.0) % Lymph % (Auto) 8.6 L (22.0-35.0) % Larue % (Auto) 7.2 H (1.0-6.0) % Eos % (Auto) 0.0 L (1.5-5.0) % Baso % (Auto) 0.2 (0.0-3.0) % Gran # 4.80 (1.4-6.5) Lymph # (Auto) 0.5 L (1.2-3.4) Larue # (Auto) 0.4 (0.1-0.6) Eos # (Auto) 0.0 (0.0-0.7) Baso # (Auto) 0.01 (0.0-2.0) K/mm3 Neutrophils % (Manual) 69 (50.0-70.0) % Band Neutrophils % 14 H* (0-2) % Lymphocytes % (Manual) 9 L (22.0-35.0) % Monocytes % (Manual) 6 (1.0-6.0) % Myelocytes % 2 % Platelet Evaluation Normal (NORMAL) Large Platelets Present PT (9.4-12.5) SECONDS INR (0.93-1.08) APTT (25.1-36.5) Seconds pCO2 42 (35-45) mm/Hg pO2 163.0 H (30-55) mm/Hg HCO3 23.7 (21-28) mmol/L ABG pH 7.36 (7.35-7.45) ABG Total CO2 25.0 (22-28) mmol.L ABG O2 Saturation 99.6 H (95-98) % ABG Base Excess -1.8 (-2.0-3.0) mmol/L ABG Potassium 3.5 L (3.6-5.2) mmol/L VBG pH (7.32-7.43) VBG pCO2 (40-60) VBG HCO3 (21-28) mmol/l VBG Total CO2 (22-28) mmol.L VBG O2 Sat (Calc) (40-65) % VBG Base Excess (0.0-2.0) mmol/L VBG Potassium (3.6-5.2) mmol/L Sodium 145.0 (132-148) mmol/L Chloride 114.0 H (98-107) mmol/L Glucose 107 H (65-105) mg/dl Lactate 0.8 (0.7-2.1) mmol/L FiO2 50.0 % Potassium (3.6-5.0) mmol/L Carbon Dioxide (21-33) mmol/L Anion Gap (10-20) BUN (7-21) mg/dL Creatinine (0.7-1.2) mg/dl Est GFR ( Amer) Est GFR (Non-Af Amer) POC Glucose (mg/dL) (65-110) mg/dL Random Glucose (70-110) mg/dL Calcium (8.4-10.5) mg/dL Phosphorus (2.5-4.5) mg/dL Magnesium (1.7-2.2) mg/dL Total Bilirubin (0.2-1.3) mg/dL AST (14-36) U/L ALT (7-56) U/L Alkaline Phosphatase (38-126) U/L Ammonia < 9 L (9-33) umol/L Lactate Dehydrogenase (333-699) U/L Total Creatine Kinase (35-230) U/L Troponin I ng/mL Total Protein (5.8-8.3) g/dL Albumin (3.0-4.8) g/dL Globulin gm/dL Albumin/Globulin Ratio (1.1-1.8) PTH Intact Whole Molec (14-64) pg/mL Arterial Blood Potassium 3.5 L (3.6-5.2) mmol/L Venous Blood Potassium (3.6-5.2) mmol/L Valproic Acid (50.0-100.0) ug/mL 11/09/17 11/09/17 11/09/17 Range/Units 22:16 18:32 18:32 WBC 8.3 D (4.5-11.0) 10^3/ul RBC 3.76 (3.5-6.1) 10^6/uL Hgb 11.3 L (12.0-16.0) g/dL Hct 36.5 (36.0-48.0) % MCV 97.1 D (80.0-105.0) fl MCH 30.1 (25.0-35.0) pg MCHC 31.0 (31.0-37.0) g/dl RDW 17.5 H (11.5-14.5) % Plt Count 308 (120.0-450.0) 10^3/uL MPV 10.6 (7.0-11.0) fl Gran % (50.0-68.0) % Lymph % (Auto) (22.0-35.0) % Larue % (Auto) (1.0-6.0) % Eos % (Auto) (1.5-5.0) % Baso % (Auto) (0.0-3.0) % Gran # (1.4-6.5) Lymph # (Auto) (1.2-3.4) Larue # (Auto) (0.1-0.6) Eos # (Auto) (0.0-0.7) Baso # (Auto) (0.0-2.0) K/mm3 Neutrophils % (Manual) (50.0-70.0) % Band Neutrophils % (0-2) % Lymphocytes % (Manual) (22.0-35.0) % Monocytes % (Manual) (1.0-6.0) % Myelocytes % % Platelet Evaluation (NORMAL) Large Platelets PT 11.8 (9.4-12.5) SECONDS INR 1.03 (0.93-1.08) APTT 31.1 (25.1-36.5) Seconds pCO2 (35-45) mm/Hg pO2 (30-55) mm/Hg HCO3 (21-28) mmol/L ABG pH (7.35-7.45) ABG Total CO2 (22-28) mmol.L ABG O2 Saturation (95-98) % ABG Base Excess (-2.0-3.0) mmol/L ABG Potassium (3.6-5.2) mmol/L VBG pH (7.32-7.43) VBG pCO2 (40-60) VBG HCO3 (21-28) mmol/l VBG Total CO2 (22-28) mmol.L VBG O2 Sat (Calc) (40-65) % VBG Base Excess (0.0-2.0) mmol/L VBG Potassium (3.6-5.2) mmol/L Sodium (132-148) mmol/L Chloride (98-107) mmol/L Glucose (65-105) mg/dl Lactate (0.7-2.1) mmol/L FiO2 % Potassium (3.6-5.0) mmol/L Carbon Dioxide (21-33) mmol/L Anion Gap (10-20) BUN (7-21) mg/dL Creatinine (0.7-1.2) mg/dl Est GFR ( Amer) Est GFR (Non-Af Amer) POC Glucose (mg/dL) 122 H (65-110) mg/dL Random Glucose (70-110) mg/dL Calcium (8.4-10.5) mg/dL Phosphorus (2.5-4.5) mg/dL Magnesium (1.7-2.2) mg/dL Total Bilirubin (0.2-1.3) mg/dL AST (14-36) U/L ALT (7-56) U/L Alkaline Phosphatase (38-126) U/L Ammonia (9-33) umol/L Lactate Dehydrogenase (333-699) U/L Total Creatine Kinase (35-230) U/L Troponin I ng/mL Total Protein (5.8-8.3) g/dL Albumin (3.0-4.8) g/dL Globulin gm/dL Albumin/Globulin Ratio (1.1-1.8) PTH Intact Whole Molec (14-64) pg/mL Arterial Blood Potassium (3.6-5.2) mmol/L Venous Blood Potassium (3.6-5.2) mmol/L Valproic Acid (50.0-100.0) ug/mL 11/09/17 11/09/17 11/09/17 Range/Units 18:32 18:32 18:10 WBC (4.5-11.0) 10^3/ul RBC (3.5-6.1) 10^6/uL Hgb (12.0-16.0) g/dL Hct (36.0-48.0) % MCV (80.0-105.0) fl MCH (25.0-35.0) pg MCHC (31.0-37.0) g/dl RDW (11.5-14.5) % Plt Count (120.0-450.0) 10^3/uL MPV (7.0-11.0) fl Gran % (50.0-68.0) % Lymph % (Auto) (22.0-35.0) % Larue % (Auto) (1.0-6.0) % Eos % (Auto) (1.5-5.0) % Baso % (Auto) (0.0-3.0) % Gran # (1.4-6.5) Lymph # (Auto) (1.2-3.4) Larue # (Auto) (0.1-0.6) Eos # (Auto) (0.0-0.7) Baso # (Auto) (0.0-2.0) K/mm3 Neutrophils % (Manual) (50.0-70.0) % Band Neutrophils % (0-2) % Lymphocytes % (Manual) (22.0-35.0) % Monocytes % (Manual) (1.0-6.0) % Myelocytes % % Platelet Evaluation (NORMAL) Large Platelets PT (9.4-12.5) SECONDS INR (0.93-1.08) APTT (25.1-36.5) Seconds pCO2 (35-45) mm/Hg pO2 304 H (30-55) mm/Hg HCO3 (21-28) mmol/L ABG pH (7.35-7.45) ABG Total CO2 (22-28) mmol.L ABG O2 Saturation (95-98) % ABG Base Excess (-2.0-3.0) mmol/L ABG Potassium (3.6-5.2) mmol/L VBG pH 7.17 L* (7.32-7.43) VBG pCO2 95.0 H* (40-60) VBG HCO3 34.7 H (21-28) mmol/l VBG Total CO2 37.6 H (22-28) mmol.L VBG O2 Sat (Calc) 100.4 H (40-65) % VBG Base Excess 3.0 H (0.0-2.0) mmol/L VBG Potassium 5.0 (3.6-5.2) mmol/L Sodium 150.0 H 154 H (132-148) mmol/L Chloride 109.0 H 105 (98-107) mmol/L Glucose 162 H (65-105) mg/dl Lactate 7.0 H* (0.7-2.1) mmol/L FiO2 21.0 % Potassium 4.9 (3.6-5.0) mmol/L Carbon Dioxide 30 (21-33) mmol/L Anion Gap 24 H (10-20) BUN 50 H (7-21) mg/dL Creatinine 3.9 H (0.7-1.2) mg/dl Est GFR ( Amer) 14 Est GFR (Non-Af Amer) 11 POC Glucose (mg/dL) 118 H (65-110) mg/dL Random Glucose 161 H (70-110) mg/dL Calcium 9.4 (8.4-10.5) mg/dL Phosphorus (2.5-4.5) mg/dL Magnesium 2.2 (1.7-2.2) mg/dL Total Bilirubin 0.4 (0.2-1.3) mg/dL AST 59 H D (14-36) U/L ALT 47 (7-56) U/L Alkaline Phosphatase 154 H D (38-126) U/L Ammonia (9-33) umol/L Lactate Dehydrogenase 867 H (333-699) U/L Total Creatine Kinase 54 (35-230) U/L Troponin I 0.06 ng/mL Total Protein 5.9 (5.8-8.3) g/dL Albumin 3.0 (3.0-4.8) g/dL Globulin 2.9 gm/dL Albumin/Globulin Ratio 1.0 L (1.1-1.8) PTH Intact Whole Molec (14-64) pg/mL Arterial Blood Potassium (3.6-5.2) mmol/L Venous Blood Potassium 5.0 (3.6-5.2) mmol/L Valproic Acid (50.0-100.0) ug/mL 11/09/17 11/09/17 11/09/17 Range/Units 16:14 11:36 07:22 WBC (4.5-11.0) 10^3/ul RBC (3.5-6.1) 10^6/uL Hgb (12.0-16.0) g/dL Hct (36.0-48.0) % MCV (80.0-105.0) fl MCH (25.0-35.0) pg MCHC (31.0-37.0) g/dl RDW (11.5-14.5) % Plt Count (120.0-450.0) 10^3/uL MPV (7.0-11.0) fl Gran % (50.0-68.0) % Lymph % (Auto) (22.0-35.0) % Larue % (Auto) (1.0-6.0) % Eos % (Auto) (1.5-5.0) % Baso % (Auto) (0.0-3.0) % Gran # (1.4-6.5) Lymph # (Auto) (1.2-3.4) Larue # (Auto) (0.1-0.6) Eos # (Auto) (0.0-0.7) Baso # (Auto) (0.0-2.0) K/mm3 Neutrophils % (Manual) (50.0-70.0) % Band Neutrophils % (0-2) % Lymphocytes % (Manual) (22.0-35.0) % Monocytes % (Manual) (1.0-6.0) % Myelocytes % % Platelet Evaluation (NORMAL) Large Platelets PT (9.4-12.5) SECONDS INR (0.93-1.08) APTT (25.1-36.5) Seconds pCO2 (35-45) mm/Hg pO2 (30-55) mm/Hg HCO3 (21-28) mmol/L ABG pH (7.35-7.45) ABG Total CO2 (22-28) mmol.L ABG O2 Saturation (95-98) % ABG Base Excess (-2.0-3.0) mmol/L ABG Potassium (3.6-5.2) mmol/L VBG pH (7.32-7.43) VBG pCO2 (40-60) VBG HCO3 (21-28) mmol/l VBG Total CO2 (22-28) mmol.L VBG O2 Sat (Calc) (40-65) % VBG Base Excess (0.0-2.0) mmol/L VBG Potassium (3.6-5.2) mmol/L Sodium (132-148) mmol/L Chloride (98-107) mmol/L Glucose (65-105) mg/dl Lactate (0.7-2.1) mmol/L FiO2 % Potassium (3.6-5.0) mmol/L Carbon Dioxide (21-33) mmol/L Anion Gap (10-20) BUN (7-21) mg/dL Creatinine (0.7-1.2) mg/dl Est GFR ( Amer) Est GFR (Non-Af Amer) POC Glucose (mg/dL) 82 75 71 (65-110) mg/dL Random Glucose (70-110) mg/dL Calcium (8.4-10.5) mg/dL Phosphorus (2.5-4.5) mg/dL Magnesium (1.7-2.2) mg/dL Total Bilirubin (0.2-1.3) mg/dL AST (14-36) U/L ALT (7-56) U/L Alkaline Phosphatase (38-126) U/L Ammonia (9-33) umol/L Lactate Dehydrogenase (333-699) U/L Total Creatine Kinase (35-230) U/L Troponin I ng/mL Total Protein (5.8-8.3) g/dL Albumin (3.0-4.8) g/dL Globulin gm/dL Albumin/Globulin Ratio (1.1-1.8) PTH Intact Whole Molec (14-64) pg/mL Arterial Blood Potassium (3.6-5.2) mmol/L Venous Blood Potassium (3.6-5.2) mmol/L Valproic Acid (50.0-100.0) ug/mL 11/06/17 Range/Units 09:50 WBC (4.5-11.0) 10^3/ul RBC (3.5-6.1) 10^6/uL Hgb (12.0-16.0) g/dL Hct (36.0-48.0) % MCV (80.0-105.0) fl MCH (25.0-35.0) pg MCHC (31.0-37.0) g/dl RDW (11.5-14.5) % Plt Count (120.0-450.0) 10^3/uL MPV (7.0-11.0) fl Gran % (50.0-68.0) % Lymph % (Auto) (22.0-35.0) % Larue % (Auto) (1.0-6.0) % Eos % (Auto) (1.5-5.0) % Baso % (Auto) (0.0-3.0) % Gran # (1.4-6.5) Lymph # (Auto) (1.2-3.4) Larue # (Auto) (0.1-0.6) Eos # (Auto) (0.0-0.7) Baso # (Auto) (0.0-2.0) K/mm3 Neutrophils % (Manual) (50.0-70.0) % Band Neutrophils % (0-2) % Lymphocytes % (Manual) (22.0-35.0) % Monocytes % (Manual) (1.0-6.0) % Myelocytes % % Platelet Evaluation (NORMAL) Large Platelets PT (9.4-12.5) SECONDS INR (0.93-1.08) APTT (25.1-36.5) Seconds pCO2 (35-45) mm/Hg pO2 (30-55) mm/Hg HCO3 (21-28) mmol/L ABG pH (7.35-7.45) ABG Total CO2 (22-28) mmol.L ABG O2 Saturation (95-98) % ABG Base Excess (-2.0-3.0) mmol/L ABG Potassium (3.6-5.2) mmol/L VBG pH (7.32-7.43) VBG pCO2 (40-60) VBG HCO3 (21-28) mmol/l VBG Total CO2 (22-28) mmol.L VBG O2 Sat (Calc) (40-65) % VBG Base Excess (0.0-2.0) mmol/L VBG Potassium (3.6-5.2) mmol/L Sodium (132-148) mmol/L Chloride (98-107) mmol/L Glucose (65-105) mg/dl Lactate (0.7-2.1) mmol/L FiO2 % Potassium (3.6-5.0) mmol/L Carbon Dioxide (21-33) mmol/L Anion Gap (10-20) BUN (7-21) mg/dL Creatinine (0.7-1.2) mg/dl Est GFR ( Amer) Est GFR (Non-Af Amer) POC Glucose (mg/dL) (65-110) mg/dL Random Glucose (70-110) mg/dL Calcium (8.4-10.5) mg/dL Phosphorus (2.5-4.5) mg/dL Magnesium (1.7-2.2) mg/dL Total Bilirubin (0.2-1.3) mg/dL AST (14-36) U/L ALT (7-56) U/L Alkaline Phosphatase (38-126) U/L Ammonia (9-33) umol/L Lactate Dehydrogenase (333-699) U/L Total Creatine Kinase (35-230) U/L Troponin I ng/mL Total Protein (5.8-8.3) g/dL Albumin (3.0-4.8) g/dL Globulin gm/dL Albumin/Globulin Ratio (1.1-1.8) PTH Intact Whole Molec 292 H (14-64) pg/mL Arterial Blood Potassium (3.6-5.2) mmol/L Venous Blood Potassium (3.6-5.2) mmol/L Valproic Acid (50.0-100.0) ug/mL Laboratory Results - last 24 hr 11/06/17 11/09/17 11/09/17 09:50 07:22 11:36 WBC RBC Hgb Hct MCV MCH MCHC RDW Plt Count MPV Gran % Lymph % (Auto) Larue % (Auto) Eos % (Auto) Baso % (Auto) Gran # Lymph # (Auto) Larue # (Auto) Eos # (Auto) Baso # (Auto) Neutrophils % (Manual) Band Neutrophils % Lymphocytes % (Manual) Monocytes % (Manual) Myelocytes % Platelet Evaluation Large Platelets PT INR APTT pCO2 pO2 HCO3 ABG pH ABG Total CO2 ABG O2 Saturation ABG Base Excess ABG Potassium VBG pH VBG pCO2 VBG HCO3 VBG Total CO2 VBG O2 Sat (Calc) VBG Base Excess VBG Potassium Sodium Chloride Glucose Lactate FiO2 Potassium Carbon Dioxide Anion Gap BUN Creatinine Est GFR ( Amer) Est GFR (Non-Af Amer) POC Glucose (mg/dL) 71 75 Random Glucose Calcium Phosphorus Magnesium Total Bilirubin AST ALT Alkaline Phosphatase Ammonia Lactate Dehydrogenase Total Creatine Kinase Troponin I Total Protein Albumin Globulin Albumin/Globulin Ratio PTH Intact Whole Molec 292 H Arterial Blood Potassium Venous Blood Potassium Valproic Acid 11/09/17 11/09/17 11/09/17 16:14 18:10 18:32 WBC RBC Hgb Hct MCV MCH MCHC RDW Plt Count MPV Gran % Lymph % (Auto) Larue % (Auto) Eos % (Auto) Baso % (Auto) Gran # Lymph # (Auto) Larue # (Auto) Eos # (Auto) Baso # (Auto) Neutrophils % (Manual) Band Neutrophils % Lymphocytes % (Manual) Monocytes % (Manual) Myelocytes % Platelet Evaluation Large Platelets PT INR APTT pCO2 pO2 HCO3 ABG pH ABG Total CO2 ABG O2 Saturation ABG Base Excess ABG Potassium VBG pH VBG pCO2 VBG HCO3 VBG Total CO2 VBG O2 Sat (Calc) VBG Base Excess VBG Potassium Sodium 154 H Chloride 105 Glucose Lactate FiO2 Potassium 4.9 Carbon Dioxide 30 Anion Gap 24 H BUN 50 H Creatinine 3.9 H Est GFR ( Amer) 14 Est GFR (Non-Af Amer) 11 POC Glucose (mg/dL) 82 118 H Random Glucose 161 H Calcium 9.4 Phosphorus Magnesium 2.2 Total Bilirubin 0.4 AST 59 H D ALT 47 Alkaline Phosphatase 154 H D Ammonia Lactate Dehydrogenase 867 H Total Creatine Kinase 54 Troponin I 0.06 Total Protein 5.9 Albumin 3.0 Globulin 2.9 Albumin/Globulin Ratio 1.0 L PTH Intact Whole Molec Arterial Blood Potassium Venous Blood Potassium Valproic Acid 11/09/17 11/09/17 11/09/17 18:32 18:32 18:32 WBC 8.3 D RBC 3.76 Hgb 11.3 L Hct 36.5 MCV 97.1 D MCH 30.1 MCHC 31.0 RDW 17.5 H Plt Count 308 MPV 10.6 Gran % Lymph % (Auto) Larue % (Auto) Eos % (Auto) Baso % (Auto) Gran # Lymph # (Auto) Larue # (Auto) Eos # (Auto) Baso # (Auto) Neutrophils % (Manual) Band Neutrophils % Lymphocytes % (Manual) Monocytes % (Manual) Myelocytes % Platelet Evaluation Large Platelets PT 11.8 INR 1.03 APTT 31.1 pCO2 pO2 304 H HCO3 ABG pH ABG Total CO2 ABG O2 Saturation ABG Base Excess ABG Potassium VBG pH 7.17 L* VBG pCO2 95.0 H* VBG HCO3 34.7 H VBG Total CO2 37.6 H VBG O2 Sat (Calc) 100.4 H VBG Base Excess 3.0 H VBG Potassium 5.0 Sodium 150.0 H Chloride 109.0 H Glucose 162 H Lactate 7.0 H* FiO2 21.0 Potassium Carbon Dioxide Anion Gap BUN Creatinine Est GFR ( Amer) Est GFR (Non-Af Amer) POC Glucose (mg/dL) Random Glucose Calcium Phosphorus Magnesium Total Bilirubin AST ALT Alkaline Phosphatase Ammonia Lactate Dehydrogenase Total Creatine Kinase Troponin I Total Protein Albumin Globulin Albumin/Globulin Ratio PTH Intact Whole Molec Arterial Blood Potassium Venous Blood Potassium 5.0 Valproic Acid 11/09/17 11/10/17 11/10/17 22:16 00:44 04:55 WBC RBC Hgb Hct MCV MCH MCHC RDW Plt Count MPV Gran % Lymph % (Auto) Larue % (Auto) Eos % (Auto) Baso % (Auto) Gran # Lymph # (Auto) Larue # (Auto) Eos # (Auto) Baso # (Auto) Neutrophils % (Manual) Band Neutrophils % Lymphocytes % (Manual) Monocytes % (Manual) Myelocytes % Platelet Evaluation Large Platelets PT INR APTT pCO2 42 pO2 163.0 H HCO3 23.7 ABG pH 7.36 ABG Total CO2 25.0 ABG O2 Saturation 99.6 H ABG Base Excess -1.8 ABG Potassium 3.5 L VBG pH VBG pCO2 VBG HCO3 VBG Total CO2 VBG O2 Sat (Calc) VBG Base Excess VBG Potassium Sodium 145.0 Chloride 114.0 H Glucose 107 H Lactate 0.8 FiO2 50.0 Potassium Carbon Dioxide Anion Gap BUN Creatinine Est GFR ( Amer) Est GFR (Non-Af Amer) POC Glucose (mg/dL) 122 H Random Glucose Calcium Phosphorus Magnesium Total Bilirubin AST ALT Alkaline Phosphatase Ammonia < 9 L Lactate Dehydrogenase Total Creatine Kinase Troponin I Total Protein Albumin Globulin Albumin/Globulin Ratio PTH Intact Whole Molec Arterial Blood Potassium 3.5 L Venous Blood Potassium Valproic Acid 11/10/17 11/10/17 11/10/17 04:55 04:55 04:55 WBC 5.7 D RBC 3.73 Hgb 11.1 L Hct 35.6 L MCV 95.4 MCH 29.8 MCHC 31.2 RDW 17.4 H Plt Count 351 MPV 10.1 Gran % 84.0 H Lymph % (Auto) 8.6 L Larue % (Auto) 7.2 H Eos % (Auto) 0.0 L Baso % (Auto) 0.2 Gran # 4.80 Lymph # (Auto) 0.5 L Larue # (Auto) 0.4 Eos # (Auto) 0.0 Baso # (Auto) 0.01 Neutrophils % (Manual) 69 Band Neutrophils % 14 H* Lymphocytes % (Manual) 9 L Monocytes % (Manual) 6 Myelocytes % 2 Platelet Evaluation Normal Large Platelets Present PT INR APTT pCO2 pO2 HCO3 ABG pH ABG Total CO2 ABG O2 Saturation ABG Base Excess ABG Potassium VBG pH VBG pCO2 VBG HCO3 VBG Total CO2 VBG O2 Sat (Calc) VBG Base Excess VBG Potassium Sodium 147 Chloride 107 Glucose Lactate FiO2 Potassium 3.9 Carbon Dioxide 28 Anion Gap 17 BUN 50 H Creatinine 4.0 H Est GFR ( Amer) 13 Est GFR (Non-Af Amer) 11 POC Glucose (mg/dL) Random Glucose 112 H Calcium 9.2 Phosphorus 4.5 Magnesium 1.8 Total Bilirubin 0.4 AST 125 H D ALT 93 H Alkaline Phosphatase 153 H Ammonia Lactate Dehydrogenase Total Creatine Kinase Troponin I Total Protein 6.3 Albumin 3.1 Globulin 3.2 Albumin/Globulin Ratio 1.0 L PTH Intact Whole Molec Arterial Blood Potassium Venous Blood Potassium Valproic Acid 14 L 11/10/17 05:00 WBC RBC Hgb Hct MCV MCH MCHC RDW Plt Count MPV Gran % Lymph % (Auto) Larue % (Auto) Eos % (Auto) Baso % (Auto) Gran # Lymph # (Auto) Larue # (Auto) Eos # (Auto) Baso # (Auto) Neutrophils % (Manual) Band Neutrophils % Lymphocytes % (Manual) Monocytes % (Manual) Myelocytes % Platelet Evaluation Large Platelets PT INR APTT pCO2 pO2 62 H HCO3 ABG pH ABG Total CO2 ABG O2 Saturation ABG Base Excess ABG Potassium VBG pH 7.31 L VBG pCO2 55.0 VBG HCO3 27.7 VBG Total CO2 29.4 H VBG O2 Sat (Calc) 95.4 H VBG Base Excess 0.4 VBG Potassium 4.1 Sodium 144.0 Chloride 111.0 H Glucose 121 H Lactate 1.5 FiO2 21.0 Potassium Carbon Dioxide Anion Gap BUN Creatinine Est GFR ( Amer) Est GFR (Non-Af Amer) POC Glucose (mg/dL) Random Glucose Calcium Phosphorus Magnesium Total Bilirubin AST ALT Alkaline Phosphatase Ammonia Lactate Dehydrogenase Total Creatine Kinase Troponin I Total Protein Albumin Globulin Albumin/Globulin Ratio PTH Intact Whole Molec Arterial Blood Potassium Venous Blood Potassium 4.1 Valproic Acid EKG/Cardiology Studies: Cardiology / EKG Studies 11/09/17 15:39 EKG [ELECTROCARDIOGRAM] Stat Comment: Reason For Exam: bradycardia 11/09/17 18:18 EKG [ELECTROCARDIOGRAM] Stat Comment: Reason For Exam: chest pain Critical Care Progress Note - Nutrition Nutrition: Nutrition Category Date Time Status NPO Diet [DIET] Diets 11/07/17 Breakfast Ordered Assessment/Plan - Assessment and Plan (Free Text) Plan: Pt seen and examined on rounds with resident, agree with note with following additions/exceptions: 77yo female with PMHx of CKD, COPD, Dementia, CVA, a/w AMS, seizure activity, intubated. yesterday had PEA cardiac arrest for 13 minutes, ROSC obtained. Patient noted to have b/l pneumothorax s/p CT placement bilateral by surgery, with subsequent lung re-expansion.. AMS/Seizure Lethargy Hypernatremia Dehydration Acute on Chronic renal failure COPD s/p cardiac arrest s/p ROSC - currently afebrile, HD stable, comfortable, lethargic, not following commands - labs with hypernatremia, that is improving, HH stable, K stable, ABG acceptable - CT head repeat pending - EEG read pending - has biltaral CT in palce on water seal, b/l lung with re-expansion, surgery following Recommend: - cont with ventilatory support, low tidal vol ventilation, daily sedation vacation, daily ABG, CXR - antibiotics as per ID - follow up cultures - BP control - start feeds - check TSH, Ulytes - IVF, D5W @ 100cc/hr - EEG - cont with Depakote as per Neuro, consider increasing dose, as levels subtherapeutic, will discuss with neuro - follow up Neuro - repeat CT head - FS control - GI ppx - DVT ppx - palliative care follow up - Monitor in MICU Critica care time 35 minutes
[2017-11-10] MEDS: Valproate 500 MG in Sodium Chloride 0.9% 100 ML IVPB SCH (09:27)
[2017-11-10] MEDS: Fentanyl 1000mcg/100ml NS 1,000 MCG/100 ML BAG IV PRN (09:33)
--- NOTE | 2017-11-10 10:19 | CP.PCM.PN ---
Subjective - Date & Time of Evaluation Date of Evaluation: 11/10/17 Time of Evaluation: 09:50 - Subjective Subjective: Continues to be on the ventilator, no fevers overnight. Objective - Vital Signs/Intake and Output Vital Signs (last 24 hours): Temp Pulse Resp BP Pulse Ox 99.4 F 84 21 147/88 100 11/10/17 08:00 11/10/17 06:58 11/10/17 05:30 11/10/17 06:18 11/10/17 06:18 Intake and Output: 11/10/17 11/10/17 06:59 18:59 Intake Total 1525 Output Total 440 Balance 1085 - Medications Medications: Current Medications Acetaminophen (Tylenol 325mg Tab) 650 mg PO Q4H PRN PRN Reason: Fever >100.4 F Last Admin: 11/03/17 16:31 Dose: 650 mg Calcium Acetate (Phoslo) 667 mg PO WM [facility] Last Admin: 11/10/17 09:28 Dose: 667 mg Famotidine (Pepcid) 20 mg IVP DAILY [facility] Last Admin: 11/10/17 09:28 Dose: 20 mg Heparin Sodium (Porcine) (Heparin) 5,000 units SC Q12 DAVID PRN Reason: Protocol Last Admin: 11/10/17 09:28 Dose: 5,000 units Hydralazine HCl (Apresoline) 10 mg IVP Q6H PRN PRN Reason: Systolic Blood Pressure Valproate Sodium 500 mg/ (Sodium Chloride) 105 mls @ 100 mls/hr IVPB BID [facility] Last Admin: 11/10/17 09:27 Dose: 100 mls/hr Meropenem 250 mg/ Sodium (Chloride) 100 mls @ 100 mls/hr IVPB Q12H [facility] PRN Reason: Protocol Stop: 11/16/17 18:16 Last Admin: 11/10/17 05:16 Dose: 100 mls/hr Dextrose/Sodium Chloride (Dextrose 5%/0.45% Ns 1000 Ml) 1,000 mls @ 85 mls/hr IV .[id number] [facility] Last Admin: 11/10/17 01:37 Dose: 85 mls/hr Fentanyl Citrate (Fentanyl Citrate/Sodium Chloride 1 Mg/100 Ml) 1,000 mcg in 100 mls @ 2 mls/hr IV .Q24H PRN; Protocol; 20 MCG/HR PRN Reason: TITRATE PER MD ORDER Last Admin: 11/10/17 09:33 Dose: 20 mcg/hr, 2 mls/hr Levalbuterol HCl (Xopenex) 0.63 mg IH [id number] DAVID Last Admin: 11/10/17 07:37 Dose: 0.63 mg Levalbuterol HCl (Xopenex) 0.63 mg IH Q2 PRN PRN Reason: Shortness of Breath Last Admin: 11/07/17 09:40 Dose: 0.63 mg - Labs Labs: 11/10/17 04:55 11/10/17 04:55 PT 11.8 SECONDS (9.4-12.5) 11/09/17 18:32 INR 1.03 (0.93-1.08) 11/09/17 18:32 APTT 31.1 Seconds (25.1-36.5) 11/09/17 18:32 - Constitutional Appears: Other (intubated, sedated) - ENT Exam Additional comments: ET tube in place - Respiratory Exam Respiratory Exam: Decreased Breath Sounds, Rhonchi (scattered) - Cardiovascular Exam Cardiovascular Exam: +S1, +S2 - GI/Abdominal Exam GI & Abdominal Exam: Soft. absent: Tenderness Assessment and Plan - Assessment and Plan (Free Text) Plan: Assessment severe sepsis with VDRF due to HCAP with acute renal failure new onset seizures Plan Continue Merrem day 3 and has been given a dose of IV Vancomycin pending final culture results; PCT is elevated but is not accurate since patient has renal failure will monitor if patient again has a seizure episode - will consider changing Merrem to another antibiotic if the patient does - currently on Valproate overall prognosis is poor
--- NOTE | 2017-11-10 11:59 | CT ---
PROCEDURE: CT HEAD WITHOUT CONTRAST. HISTORY: AMS, r/o ischemia COMPARISON: 11/07/2017 TECHNIQUE: Axial computed tomography images were obtained through the head/brain without intravenous contrast. Radiation dose: Total exam DLP = 802 mGy-cm. This CT exam was performed using one or more of the following dose reduction techniques: Automated exposure control, adjustment of the mA and/or kV according to patient size, and/or use of iterative reconstruction technique. FINDINGS: HEMORRHAGE: No intracranial hemorrhage. BRAIN: No mass effect or edema. Severe chronic microvascular changes are seen in the periventricular white matter in the basal ganglia bilaterally. The miladis is also involved. No acute findings VENTRICLES: Unremarkable. No hydrocephalus. CALVARIUM: Unremarkable. PARANASAL SINUSES: Unremarkable as visualized. No significant inflammatory changes. MASTOID AIR CELLS: There is chronic right-sided mastoiditis and otitis media OTHER FINDINGS: None. IMPRESSION: Severe chronic microvascular changes. No acute intracranial findings Chronic right-sided otomastoiditis
[2017-11-10] MEDS: Dextrose 5%/0.45% NS 1,000 ML IV SCH ×2 (12:01→23:53)
--- NOTE | 2017-11-10 12:09 | CP.PCM.PN ---
Subjective - Date & Time of Evaluation Date of Evaluation: 11/10/17 Time of Evaluation: 10:10 - Subjective Subjective: Neuro progress note: Pt seen and examined at bedside. Pt had PEA arrest and ROSC was achieved following 13 minutes and 3 rounds of epi s/p john pneumothorax, chest tube insertion. Patient still intubated. Patient open eyes spontaneously, no following any command. Patient also demonstrates L sided semi neglect. 12 Point ROS unobtainable due to intubation Objective - Vital Signs/Intake and Output Vital Signs (last 24 hours): Temp Pulse Resp BP Pulse Ox 99.4 F 91 H 13 142/88 100 11/10/17 08:00 11/10/17 10:00 11/10/17 10:00 11/10/17 10:00 11/10/17 10:00 Intake and Output: 11/10/17 11/10/17 06:59 18:59 Intake Total 1525 2 Output Total 440 Balance 1085 2 - Medications Medications: Current Medications Acetaminophen (Tylenol 325mg Tab) 650 mg PO Q4H PRN PRN Reason: Fever >100.4 F Last Admin: 11/03/17 16:31 Dose: 650 mg Calcium Acetate (Phoslo) 667 mg PO WM [facility] Last Admin: 11/10/17 09:28 Dose: 667 mg Famotidine (Pepcid) 20 mg IVP DAILY [facility] Last Admin: 11/10/17 09:28 Dose: 20 mg Heparin Sodium (Porcine) (Heparin) 5,000 units SC Q12 DAVID PRN Reason: Protocol Last Admin: 11/10/17 09:28 Dose: 5,000 units Hydralazine HCl (Apresoline) 10 mg IVP Q6H PRN PRN Reason: Systolic Blood Pressure Valproate Sodium 500 mg/ (Sodium Chloride) 105 mls @ 100 mls/hr IVPB BID [facility] Last Admin: 11/10/17 09:27 Dose: 100 mls/hr Meropenem 250 mg/ Sodium (Chloride) 100 mls @ 100 mls/hr IVPB Q12H DAVID PRN Reason: Protocol Stop: 11/16/17 18:16 Last Admin: 11/10/17 05:16 Dose: 100 mls/hr Fentanyl Citrate (Fentanyl Citrate/Sodium Chloride 1 Mg/100 Ml) 1,000 mcg in 100 mls @ 2 mls/hr IV .Q24H PRN; Protocol; 20 MCG/HR PRN Reason: TITRATE PER MD ORDER Last Titration: 11/10/17 10:45 Dose: 50 mcg/hr, 5 mls/hr Dextrose/Sodium Chloride (Dextrose 5%/0.45% Ns 1000 Ml) 1,000 mls @ 100 mls/hr IV .Q10H DAVID Levalbuterol HCl (Xopenex) 0.63 mg IH [id number] DAVID Last Admin: 11/10/17 07:37 Dose: 0.63 mg Levalbuterol HCl (Xopenex) 0.63 mg IH Q2 PRN PRN Reason: Shortness of Breath Last Admin: 11/07/17 09:40 Dose: 0.63 mg - Labs Labs: 11/10/17 04:55 11/10/17 04:55 PT 11.8 SECONDS (9.4-12.5) 11/09/17 18:32 INR 1.03 (0.93-1.08) 11/09/17 18:32 APTT 31.1 Seconds (25.1-36.5) 11/09/17 18:32 - Constitutional Appears: No Acute Distress - Eye Exam Eye Exam: EOMI Pupil Exam: NORMAL ACCOMODATION - Neurological Exam Neurological Exam: Awake. absent: Alert Additional comments: L sided Hemineglect - Psychiatric Exam Psychiatric exam: absent: Agitated Assessment and Plan - Assessment and Plan (Free Text) Assessment: 77-year-old woman with a past medical history of dementia (severe, non-verbal), COPD, HTN, CKD, CVA of who was sent from [facility] with increased lethargy and was found to have severe hypernatremia, and pneumonia. Pt had several witnessed seizures and required intubation for airway protection. s/p PEA arrest and ROSC was achieved following 13 minutes and 3 rounds of epi s/p john pneumothorax, chest tube insertion. - EEG showed tripahsic wave consistent with uremic encephelapathy - D/idalia Depakote - started Keppra 1000mg stat and 750mg BID - Abx as per ID - Medical management per medical team and ICU Case and plan was reviewed and discussed in detail with Dr Zamarripa.
[2017-11-10] MEDS ORDERED: levETIRAcetam 1,000 MG in Sodium Chloride 0.9% 100 ML IV ONE (12:14)
--- NOTE | 2017-11-10 13:47 | CP.PCM.PN ---
Subjective - Date & Time of Evaluation Date of Evaluation: 11/10/17 Time of Evaluation: 11:00 - Subjective Subjective: Somnolent, respond to tactile stimuli. Objective - Vital Signs/Intake and Output Vital Signs (last 24 hours): Temp Pulse Resp BP Pulse Ox 98.8 F 75 20 141/91 H 100 11/10/17 11:51 11/10/17 11:51 11/10/17 11:51 11/10/17 11:51 11/10/17 11:51 Intake and Output: 11/10/17 11/10/17 06:59 18:59 Intake Total 1525 542 Output Total 440 Balance 1085 542 - Medications Medications: Current Medications Acetaminophen (Tylenol 325mg Tab) 650 mg PO Q4H PRN PRN Reason: Fever >100.4 F Last Admin: 11/03/17 16:31 Dose: 650 mg Calcium Acetate (Phoslo) 667 mg PO WM [facility] Last Admin: 11/10/17 12:00 Dose: 667 mg Famotidine (Pepcid) 20 mg IVP DAILY [facility] Last Admin: 11/10/17 09:28 Dose: 20 mg Heparin Sodium (Porcine) (Heparin) 5,000 units SC Q12 DAVID PRN Reason: Protocol Last Admin: 11/10/17 09:28 Dose: 5,000 units Hydralazine HCl (Apresoline) 10 mg IVP Q6H PRN PRN Reason: Systolic Blood Pressure Meropenem 250 mg/ Sodium (Chloride) 100 mls @ 100 mls/hr IVPB Q12H [facility] PRN Reason: Protocol Stop: 11/16/17 18:16 Last Admin: 11/10/17 05:16 Dose: 100 mls/hr Fentanyl Citrate (Fentanyl Citrate/Sodium Chloride 1 Mg/100 Ml) 1,000 mcg in 100 mls @ 2 mls/hr IV .Q24H PRN; Protocol; 20 MCG/HR PRN Reason: TITRATE PER MD ORDER Last Titration: 11/10/17 10:45 Dose: 50 mcg/hr, 5 mls/hr Dextrose/Sodium Chloride (Dextrose 5%/0.45% Ns 1000 Ml) 1,000 mls @ 100 mls/hr IV .Q10H [facility] Last Admin: 11/10/17 12:01 Dose: 100 mls/hr Levetiracetam 500 mg/ Sodium (Chloride) 105 mls @ 460 mls/hr IV Q12 DAVID Levalbuterol HCl (Xopenex) 0.63 mg IH [id number] DAVID Last Admin: 11/10/17 07:37 Dose: 0.63 mg Levalbuterol HCl (Xopenex) 0.63 mg IH Q2 PRN PRN Reason: Shortness of Breath Last Admin: 11/07/17 09:40 Dose: 0.63 mg - Labs Labs: 11/10/17 04:55 11/10/17 04:55 PT 11.8 SECONDS (9.4-12.5) 11/09/17 18:32 INR 1.03 (0.93-1.08) 11/09/17 18:32 APTT 31.1 Seconds (25.1-36.5) 11/09/17 18:32 - Constitutional Appears: Chronically Ill - Head Exam Head Exam: NORMAL INSPECTION - Eye Exam Eye Exam: Normal appearance, PERRL - ENT Exam ENT Exam: Mucous Membranes Moist - Neck Exam Neck Exam: Normal Inspection - Respiratory Exam Respiratory Exam: Decreased Breath Sounds - Cardiovascular Exam Cardiovascular Exam: REGULAR RHYTHM, +S1 - GI/Abdominal Exam GI & Abdominal Exam: Soft, Diminished Bowel Sounds - Skin Additional comments: 77 year old female with hisioty CVA, CKD ,anemia admitted with sepsis, CVA, AVERY. Last night the patient had cardiopulmonary arrest, ROSC after 9 minutes. Intubated. Assessment and Plan - Assessment and Plan (Free Text) Assessment: 77 year old female with history CVA, CKD ,anemia admitted with sepsis, CVA, AVERY. Last night the patient had cardiopulmonary arrest, ROSC after 9 minutes. Intubated. I spoke with patients daughter via phone. Father also present with daughter and able to listen in on conversation. I explained that patient had cardiopulmonary arrest last evening. Also explained that likelihood of being weaned from vent is poor. 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 Questions answered. Asked family to strongly consider if the patient would want this type of existence. Option for terminal extubation and comfort care also offered. Encouraged both and daughter to come to hospital and meet with health care team to establish goals of care and treatment plan. Consideration of DNR also explored with daughter.Daughter will discuss with her father and brother. Will follow up with daughter tomorrow. Time spent in goals of care discussion with daughter on phone, 20 minutes Plan: [place] of care
--- NOTE | 2017-11-10 14:33 | CP.PCM.PN ---
<Ember Magaña - Last Filed: 11/10/17 14:56> Subjective - Date & Time of Evaluation Date of Evaluation: 11/10/17 Time of Evaluation: 14:27 - Subjective Subjective: Ember Magaña, PGY1, Medicine Progress Note for Dr Langley: Patient seen and examined at bedside. Lucrecia Rowell was called yesterday evening, with ROSC returning after 9 minutes of CPR, 3 doses of epi and one of bicarb. Pt developed bilateral pneumthoraces after the code, requiring chest tube placement bilaterally. Chest tube draining 40cc SS fluid from each side. Pt remains intubated, remains lethargic, withdraws to painful stimuli. No fevers, chills, vomiting. ROS limited due to pt being intubated/AMS. Objective - Vital Signs/Intake and Output Vital Signs (last 24 hours): Temp Pulse Resp BP Pulse Ox 98.8 F 77 20 156/96 H 100 11/10/17 11:51 11/10/17 14:00 11/10/17 11:51 11/10/17 14:00 11/10/17 14:00 Intake and Output: 11/10/17 11/10/17 06:59 18:59 Intake Total 1525 542 Output Total 440 Balance 1085 542 - Medications Medications: Current Medications Acetaminophen (Tylenol 325mg Tab) 650 mg PO Q4H PRN PRN Reason: Fever >100.4 F Last Admin: 11/03/17 16:31 Dose: 650 mg Calcium Acetate (Phoslo) 667 mg PO WM [facility] Last Admin: 11/10/17 12:00 Dose: 667 mg Famotidine (Pepcid) 20 mg IVP DAILY [facility] Last Admin: 11/10/17 09:28 Dose: 20 mg Heparin Sodium (Porcine) (Heparin) 5,000 units SC Q12 DAVID PRN Reason: Protocol Last Admin: 11/10/17 09:28 Dose: 5,000 units Hydralazine HCl (Apresoline) 10 mg IVP Q6H PRN PRN Reason: Systolic Blood Pressure Meropenem 250 mg/ Sodium (Chloride) 100 mls @ 100 mls/hr IVPB Q12H DAVID PRN Reason: Protocol Stop: 11/16/17 18:16 Last Admin: 11/10/17 05:16 Dose: 100 mls/hr Fentanyl Citrate (Fentanyl Citrate/Sodium Chloride 1 Mg/100 Ml) 1,000 mcg in 100 mls @ 2 mls/hr IV .Q24H PRN; Protocol; 20 MCG/HR PRN Reason: TITRATE PER MD ORDER Last Titration: 11/10/17 10:45 Dose: 50 mcg/hr, 5 mls/hr Dextrose/Sodium Chloride (Dextrose 5%/0.45% Ns 1000 Ml) 1,000 mls @ 100 mls/hr IV .Q10H DAVID Last Admin: 11/10/17 12:01 Dose: 100 mls/hr Levetiracetam 500 mg/ Sodium (Chloride) 105 mls @ 460 mls/hr IV Q12 DAVID Levalbuterol HCl (Xopenex) 0.63 mg IH [id number] DAVID Last Admin: 11/10/17 14:15 Dose: 0.63 mg Levalbuterol HCl (Xopenex) 0.63 mg IH Q2 PRN PRN Reason: Shortness of Breath Last Admin: 11/07/17 09:40 Dose: 0.63 mg - Labs Labs: 11/10/17 04:55 11/10/17 04:55 PT 11.8 SECONDS (9.4-12.5) 11/09/17 18:32 INR 1.03 (0.93-1.08) 11/09/17 18:32 APTT 31.1 Seconds (25.1-36.5) 11/09/17 18:32 - Constitutional Appears: In Acute Distress, Older Than Stated Age, Chronically Ill - Head Exam Head Exam: ATRAUMATIC, NORMOCEPHALIC - Eye Exam Eye Exam: absent: Conjunctival injection, Nystagmus, Scleral icterus Additional comments: sluggish pupillary reaction to light. - ENT Exam ENT Exam: Mucous Membranes Moist - Respiratory Exam Respiratory Exam: Rhonchi. absent: Accessory Muscle Use, Rales, Wheezes Additional comments: intubated - Cardiovascular Exam Cardiovascular Exam: RRR, +S1, +S2. absent: Tachycardia, Murmur - GI/Abdominal Exam GI & Abdominal Exam: Soft, Normal Bowel Sounds. absent: Distended, Firm, Guarding, Tenderness, Mass, Organomegaly, Rebound - Extremities Exam Extremities Exam: Normal Inspection. absent: Calf Tenderness, Pedal Edema - Back Exam Back Exam: NORMAL INSPECTION. absent: CVA tenderness (L), CVA tenderness (R) - Neurological Exam Neurological Exam: Altered - Psychiatric Exam Psychiatric exam: Normal Affect, Normal Mood - Skin Skin Exam: Dry, Normal Color, Warm Assessment and Plan - Assessment and Plan (Free Text) Assessment: 77 year old female with a past medical history significant for HTN, asthma, Parkinson's, recent [facility] admission for AMS/hypernatremia who presented for AMS, FTT, hypernatremia, and AVERY. Patient was medically cleared for med/surg level of care and was awaiting placement in [facility]. On 11/07, patient noted to be agitated , requiring restraints to maintain NRB mask in place. STEMHOLE BORER was called after patient had a seizure witnessed by nursing staff, for which she received one dose of ativan and keppra. Neurology was consulted and started on IV Depakote 500mg BID. Pulmonology was consulted and deemed patient unable to protect her airway, for which she was intubated and transferred to the ICU. Pt had Code Blue yesterday evening, received 9 mins of CPR with 3 doses epi, 1 dose bicarb, with ROSC afterwards. Lyndsey Youssef currently re-discussing code status with pt: 1. New Onset Seizure: 10/23 likely hypoxia, ruled out CVA, electrolyte abnormalities (K, Na), metabolic (stable uremia, no hypoglycemia) -CT Head showed no acute hemorrhages or infarcts -Currently intubated on PRVC for airway protection with intermittent weaning trials on CPAP plus PS mode -EEG pending -Continue IV Depakote 500 BID -NPO Diet -Fall and Seizure precautions -Neurology and Pulmonology consulted, all recommendations appreciated 2. HCAP -Chest X-Ray on 11/07 showed LLL infiltrate versus atelectasis and Chest X-Ray on 11/03 showed RLL infiltrate versus atelectasis -Continue with Merrem -Continue Xopenex Q6 scheduled and Q2 PRN -Currently intubated on PRVC settings -Continue Tylenol PRN for fever -ID consulted, all recommendations appreciated 3. UTI -Urine culture growing E. Faecalis -likely contaminant 4. Acute Kidney Injury in setting of Chronic Kidney Disease -BUN/Creatinine improving to patients baseline -Continue Phoslo -Nephrology consulted, all recommendations appreciated 5. Iron Deficiency Anemia -H/H dropped from 9.5 to 7.4 on 2/18/18, post transfusion Hgb 12.0 -Type and Screen -s/p transfusion two units of pRBC's -Currently holding Venofer in setting of bacterial infection GI Prophylaxis: Pepcid DVT Prophylaxis: Hep sq Patient seen and case discussed with attending, Dr. Langley. 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 77 year old female with past medical history of hypertension and asthma /COPD was admitted with altered mental status , hypernatremia , acute on chronic renal failure. Patient is SP cardiac arrest yesterday, devloped bilateral Pneumothorax after CPR and had bilateral chest tube placed in. Chest X ray today showed resolving Pneumothorax. Mental status is poor, will get Hospice consult. Case was discussed with ICU attending. Prognosis is guarded.
--- NOTE | 2017-11-10 16:40 | CP.PCM.PN ---
Subjective - Date & Time of Evaluation Date of Evaluation: 11/10/17 Time of Evaluation: 16:37 - Subjective Subjective: I met with patients son DEVONTE, and spoke on the phone in his presence to his sister Kristyn, and father Rudy/HCP, regarding the patients clinical condition. The family members were all in agreement that they want the patient to be DNR. Palliative care meeting is set for tomorrow to discuss further goals of care. Patients family members stated that they would like to possibly terminally extubate the patient tomorrow. Will meet tomorrow once again with family and Palliative care to discuss further goals of care. Patient is DNR. Ordered placed. Objective - Vital Signs/Intake and Output Vital Signs (last 24 hours): Temp Pulse Resp BP Pulse Ox 98.8 F 77 20 156/96 H 100 11/10/17 11:51 11/10/17 14:00 11/10/17 11:51 11/10/17 14:00 11/10/17 14:00 Intake and Output: 11/10/17 11/10/17 06:59 18:59 Intake Total 1525 542 Output Total 440 Balance 1085 542 - Medications Medications: Current Medications Acetaminophen (Tylenol 325mg Tab) 650 mg PO Q4H PRN PRN Reason: Fever >100.4 F Last Admin: 11/03/17 16:31 Dose: 650 mg Calcium Acetate (Phoslo) 667 mg PO [facility] Last Admin: 11/10/17 12:00 Dose: 667 mg Famotidine (Pepcid) 20 mg IVP [facility] Last Admin: 11/10/17 09:28 Dose: 20 mg Heparin Sodium (Porcine) (Heparin) 5,000 units SC Q12 DAVID PRN Reason: Protocol Last Admin: 11/10/17 09:28 Dose: 5,000 units Hydralazine HCl (Apresoline) 10 mg IVP Q6H PRN PRN Reason: Systolic Blood Pressure Meropenem 250 mg/ Sodium (Chloride) 100 mls @ 100 mls/hr IVPB Q12H DAVID PRN Reason: Protocol Stop: 11/16/17 18:16 Last Admin: 11/10/17 05:16 Dose: 100 mls/hr Fentanyl Citrate (Fentanyl Citrate/Sodium Chloride 1 Mg/100 Ml) 1,000 mcg in 100 mls @ 2 mls/hr IV .Q24H PRN; Protocol; 20 MCG/HR PRN Reason: TITRATE PER MD ORDER Last Titration: 11/10/17 10:45 Dose: 50 mcg/hr, 5 mls/hr Dextrose/Sodium Chloride (Dextrose 5%/0.45% Ns 1000 Ml) 1,000 mls @ 100 mls/hr IV .Q10H DAVID Last Admin: 11/10/17 12:01 Dose: 100 mls/hr Levetiracetam 500 mg/ Sodium (Chloride) 105 mls @ 460 mls/hr IV Q12 DAVID Levalbuterol HCl (Xopenex) 0.63 mg IH [id number] DAVID Last Admin: 11/10/17 14:15 Dose: 0.63 mg Levalbuterol HCl (Xopenex) 0.63 mg IH Q2 PRN PRN Reason: Shortness of Breath Last Admin: 11/07/17 09:40 Dose: 0.63 mg - Labs Labs: 11/10/17 04:55 11/10/17 04:55 PT 11.8 SECONDS (9.4-12.5) 11/09/17 18:32 INR 1.03 (0.93-1.08) 11/09/17 18:32 APTT 31.1 Seconds (25.1-36.5) 11/09/17 18:32
[2017-11-10] MEDS: levETIRAcetam 500mg IVPB 500 MG/100 ML BAG IVPB SCH (21:03)
[2017-11-10] MEDS ORDERED: levETIRAcetam 500 MG in Sodium Chloride 0.9% 100 ML IV SCH (22:00)
--- NOTE | 2017-11-10 23:37 | PN ---
DATE: SUBJECTIVE: Events that occurred during in the last 24 hours noted. The patient had a cardiac arrest. Post chest compression, she developed bilateral pneumothorax requiring chest tube placement. The patient currently remains on a ventilator, unresponsive. The patient was made a DNR. She has been seen by Palliative Care and there are possible plans to extubate her tomorrow. MEDICATIONS: Medication list reviewed. The patient is currently on alprazolam, D5 half-normal saline 100 mL an hour, fentanyl, heparin, Keppra, meropenem, Pepcid, PhosLo, Tylenol and Xopenex. PHYSICAL EXAMINATION INTAKE AND OUTPUT: Intake 2325, output 440. VITAL SIGNS: Presently, blood pressure is 137/83, pulse of 53, temperature is 98.1, with a respiratory rate of 20. GENERAL: The patient appears comfortable on the ventilator. She is sedated. HEENT: Eyes are closed. NECK: No neck vein distention. CHEST: Bilateral chest tubes. Decreased breath sounds. No rales, rhonchi or wheezing. CARDIOVASCULAR: Regular rate and rhythm without murmurs, rubs or gallops noted. ABDOMEN: Soft. Nondistended, nontender. Bowel sounds are normal. EXTREMITIES: Show no lower extremity cyanosis, clubbing or edema. LABORATORY DATA AND IMAGING: Labs today, CBC: White blood cell count 5.7 with a hemoglobin of 11.1 and a platelet count of 351,000. Chemistries today showed normal electrolytes, BUN 50 with a creatinine of 4.0. BUN of 50 with hydration, it is actually improved from a high of 75. Creatinine is down from a high of 5.4 down to 4.0 again with hydration. Microbiology: Sputum was positive for yeast. Urine cultures are positive for Enterococcus. Blood cultures have been negative. ASSESSMENT: 1. Chronic kidney disease, stage V with slight improvement, likely secondary to hydration. 2. Status post seizures with respiratory distress, status post intubation. The patient appears to be seizure free. 3. Status post cardiac arrest with resuscitation and chest compression resulting in bilateral pneumothorax with placement of bilateral chest tubes. 4. History of anemia secondary to chronic kidney disease, currently stable. 5. 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 6. History of hypertension. 7. Unresponsive post cardiac arrest post respiratory failure at the time of seizures 48 hours ago. The patient had been seen by Palliative Care. A meeting between the sql ssrs developer and family was conducted today and the patient will likely be extubated tomorrow. She was made a do not resuscitate. PLAN: 1. Continue present medical therapy until the time of planned extubation. 2. Obviously, no plans for any renal replacement therapy given her situation. 3. Continue IV fluid hydration. 4. Continue sedation on the ventilator. 5. Continue to monitor chest tube output. 6. Case discussed with CCU nurse. Abdifatah Arteaga MD
[2017-11-11] MEDS: Levalbuterol 0.63 MG/3 ML Inhal Soln UD IH SCH ×3 (02:03→13:26)
[2017-11-11 05:37] LABS: ARTERIAL BLOOD GAS HCO3 24.4 mmol/L (21-28); ARTERIAL BLOOD GAS HEMOGLOBIN 10.7 g/dL (11.7-17.4); ARTERIAL BLOOD GAS O2 CAPACITY 14.9 mL/dl (16-24); ARTERIAL BLOOD GAS O2 CONTENT 14.8 ML/dl (15-23); ARTERIAL BLOOD GAS O2 SAT 99.6 % (95-98); ARTERIAL BLOOD GAS PCO2 52 mm/Hg (35-45); ARTERIAL BLOOD GAS PH 7.28 (7.35-7.45)
[2017-11-11 06:48] LABS: BASO # 0.01 K/mm3 (0.0-2.0); BASO % 0.1 % (0.0-3.0); EOS # 0.1 (0.0-0.7); GRAN # 5.04 (1.4-6.5); GRAN % 72.7 % (50.0-68.0); HEMOGLOBIN 11.3 g/dL (12.0-16.0); LYMPH % 14.1 % (22.0-35.0); MEAN CELL VOLUME 96.6 fl (80.0-105.0); MEAN CORPUSCULAR HEMOGLOBIN 29.9 pg (25.0-35.0); MEAN PLATELET VOLUME 9.7 fl (7.0-11.0); MONO # 0.8 (0.1-0.6); MONO % 12.1 % (1.0-6.0); RBC 3.78 10^6/uL (3.5-6.1); RED CELL DISTRIBUTION WIDTH 17.2 % (11.5-14.5); WHITE BLOOD COUNT 6.9 10^3/ul (4.5-11.0)
[2017-11-11] MEDS: Fentanyl 1000mcg/100ml NS 1,000 MCG/100 ML BAG IV PRN (06:53)
--- NOTE | 2017-11-11 07:06 | CP.CCUPN ---
<Lina Torres - Last Filed: 11/11/17 10:05> CCU Subjective - Physician Review Subjective (Free Text): 11/11/17 09:51 Patient remains minimally sedated on fentanyl. Opens her eyes with tactile stimulus. Unable to follow commands. No overnight acute events. Unable to obtain ROS due to mental status. Critical Care Time Spent (in minutes): 45 CCU Objective - Vital Signs / Intake & Output Vital Signs (Last 4 hours): Vital Signs Temp Pulse Resp BP Pulse Ox 11/11/17 06:00 98.2 F 69 11/11/17 05:00 100/60 11/11/17 04:59 55 L 100 11/11/17 04:00 97.3 F L 58 L 20 103/57 L 100 11/11/17 03:59 58 L 100 Intake and Output (Last 8hrs): Intake & Output 11/10/17 11/11/17 11/11/17 22:59 06:59 14:59 Intake Total 888 35 Output Total 300 Balance 588 35 Weight 103 lb Intake: IV 708 35 d5 0.5ns 600 right ac 45 Other 180 Output: Chest Tube Drainage 60 Left 35 Right 25 Urine 240 Urine, Voided 240 - Physical Exam Head: Positive for: Atraumatic, Normocephalic Pupils: Positive for: PERRL Extroacular Muscles: Positive for: EOMI Conjunctiva: Positive for: Normal Mouth: Positive for: Moist Mucous Membranes, Other (ETT) Neck: Positive for: Normal Range of Motion Respiratory/Chest: Positive for: Good Air Exchange, Other (+ Coarse breath sounds on vent. + John chest tube ). Negative for: Respiratory Distress, Accessory Muscle Use, Wheezes, Decreased Breath Sounds, Rales, Retracting, Rhonchi, Tachypneic Cardiovascular: Positive for: Regular Rate and Rhythm, Normal S1, S2, Bradycardic. Negative for: Murmurs, Tachycardic Abdomen: Positive for: Normal Bowel Sounds. Negative for: Tenderness, Distention, Peritoneal Signs, Mass/Organomegaly Back: Positive for: Normal Inspection Upper Extremity: Positive for: Normal Inspection. Negative for: Edema Lower Extremity: Positive for: Normal Inspection. Negative for: Edema Neurological: Negative for: Speech Normal (nonverbal), Other (no focal deficits) Skin: Positive for: Warm, Dry Psychiatric: Positive for: Lethargic - Medications Active Medications: Active Medications Generic Name Dose Route Start Last Admin Trade Name Freq PRN Reason Stop Dose Admin Acetaminophen 650 mg 11/03/17 16:14 11/03/17 16:31 Tylenol 325mg Tab PO 650 mg Q4H PRN Administration Fever >100.4 F Calcium Acetate 667 mg 11/03/17 17:00 11/10/17 17:09 Phoslo PO 667 mg WM DAVID Administration Famotidine 20 mg 11/09/17 10:00 11/10/17 09:28 Pepcid IVP 20 mg DAILY DAVID Administration Heparin Sodium (Porcine) 5,000 units 11/09/17 10:00 11/10/17 21:03 Heparin SC 5,000 units Q12 DAVID Administration Protocol Hydralazine HCl 10 mg 11/10/17 03:45 11/11/17 00:12 Apresoline IVP 10 mg Q6H PRN Administration Systolic Blood Pressure Meropenem 250 mg/ Sodium 100 mls @ 100 mls/hr 11/07/17 18:15 11/11/17 05:24 Chloride IVPB 11/16/17 18:16 100 mls/hr Q12H DAVID Administration Protocol Fentanyl Citrate 1,000 mcg in 100 mls @ 2 mls/hr 11/10/17 09:24 11/11/17 06: 53 Fentanyl Citrate/Sodium Chloride 1 Mg/100 Ml IV 30 mcg/hr .Q24H PRN 3 mls/hr TITRATE PER MD ORDER Administration Protocol 20 MCG/HR Dextrose/Sodium Chloride 1,000 mls @ 100 mls/hr 11/10/17 10:58 11/10/17 23:53 Dextrose 5%/0.45% Ns 1000 Ml IV 100 mls/hr .Q10H DAVID Administration Levetiracetam 500 mg in 100 mls @ 400 mls/hr 11/10/17 22:00 11/10/17 21:03 Keppra 500mg Ivpb IVPB 400 mls/hr Q12 DAVID Administration Levalbuterol HCl 0.63 mg 11/07/17 14:00 11/11/17 02:03 Xopenex IH 0.63 mg [id number] DAVID Administration Levalbuterol HCl 0.63 mg 11/07/17 09:26 11/07/17 09:40 Xopenex IH 0.63 mg Q2 PRN Administration Shortness of Breath - Patient Studies Lab Studies: Microbiology Studies 11/07/17 00:10 Blood Culture - Preliminary Blood NO GROWTH AFTER 3 DAYS 11/07/17 00:00 Blood Culture - Preliminary Blood NO GROWTH AFTER 3 DAYS 11/08/17 09:00 Gram Stain - Final Sputum Sputum Culture - Final Yeast Species Lab Studies 11/11/17 11/11/17 11/10/17 Range/Units 06:30 05:27 22:01 WBC 6.9 D (4.5-11.0) 10^3/ul RBC 3.78 (3.5-6.1) 10^6/uL Hgb 11.3 L (12.0-16.0) g/dL Hct 36.5 (36.0-48.0) % MCV 96.6 (80.0-105.0) fl MCH 29.9 (25.0-35.0) pg MCHC 31.0 (31.0-37.0) g/dl RDW 17.2 H (11.5-14.5) % Plt Count 407 (120.0-450.0) 10^3/uL MPV 9.7 (7.0-11.0) fl Gran % 72.7 H (50.0-68.0) % Lymph % (Auto) 14.1 L (22.0-35.0) % [place] % (Auto) 12.1 H (1.0-6.0) % Eos % (Auto) 1.0 L (1.5-5.0) % Baso % (Auto) 0.1 (0.0-3.0) % Gran # 5.04 (1.4-6.5) Lymph # (Auto) 1.0 L (1.2-3.4) [place] # (Auto) 0.8 H (0.1-0.6) Eos # (Auto) 0.1 (0.0-0.7) Baso # (Auto) 0.01 (0.0-2.0) K/mm3 pCO2 52 H (35-45) mm/Hg pO2 146.0 H (80-100) mm/Hg HCO3 24.4 (21-28) mmol/L ABG pH 7.28 L (7.35-7.45) ABG Total CO2 26.0 (22-28) mmol.L ABG O2 Saturation 99.6 H (95-98) % ABG O2 Content 14.8 L (15-23) ML/dl ABG Base Excess -2.7 L (-2.0-3.0) mmol/L ABG Hemoglobin 10.7 L (11.7-17.4) g/dL ABG Carboxyhemoglobin 1.5 (0.5-1.5) % POC ABG HHb (Measured) 0.4 (0-5) % ABG Methemoglobin 1.5 (0.0-3.0) % ABG O2 Capacity 14.9 L (16-24) mL/dl Hgb O2 Saturation 96.7 (95.0-98.0) % FiO2 50.0 % POC Glucose (mg/dL) 110 (65-110) mg/dL 11/10/17 11/10/17 11/10/17 Range/Units 16:08 11:12 07:33 WBC (4.5-11.0) 10^3/ul RBC (3.5-6.1) 10^6/uL Hgb (12.0-16.0) g/dL Hct (36.0-48.0) % MCV (80.0-105.0) fl MCH (25.0-35.0) pg MCHC (31.0-37.0) g/dl RDW (11.5-14.5) % Plt Count (120.0-450.0) 10^3/uL MPV (7.0-11.0) fl Gran % (50.0-68.0) % Lymph % (Auto) (22.0-35.0) % [place] % (Auto) (1.0-6.0) % Eos % (Auto) (1.5-5.0) % Baso % (Auto) (0.0-3.0) % Gran # (1.4-6.5) Lymph # (Auto) (1.2-3.4) [place] # (Auto) (0.1-0.6) Eos # (Auto) (0.0-0.7) Baso # (Auto) (0.0-2.0) K/mm3 pCO2 (35-45) mm/Hg pO2 (80-100) mm/Hg HCO3 (21-28) mmol/L ABG pH (7.35-7.45) ABG Total CO2 (22-28) mmol.L ABG O2 Saturation (95-98) % ABG O2 Content (15-23) ML/dl ABG Base Excess (-2.0-3.0) mmol/L ABG Hemoglobin (11.7-17.4) g/dL ABG Carboxyhemoglobin (0.5-1.5) % POC ABG HHb (Measured) (0-5) % ABG Methemoglobin (0.0-3.0) % ABG O2 Capacity (16-24) mL/dl Hgb O2 Saturation (95.0-98.0) % FiO2 % POC Glucose (mg/dL) 120 H 89 100 (65-110) mg/dL Laboratory Results - last 24 hr 11/10/17 11/10/17 11/10/17 07:33 11:12 16:08 WBC RBC Hgb Hct MCV MCH MCHC RDW Plt Count MPV Gran % Lymph % (Auto) [place] % (Auto) Eos % (Auto) Baso % (Auto) Gran # Lymph # (Auto) [place] # (Auto) Eos # (Auto) Baso # (Auto) pCO2 pO2 HCO3 ABG pH ABG Total CO2 ABG O2 Saturation ABG O2 Content ABG Base Excess ABG Hemoglobin ABG Carboxyhemoglobin POC ABG HHb (Measured) ABG Methemoglobin ABG O2 Capacity Hgb O2 Saturation FiO2 POC Glucose (mg/dL) 100 89 120 H 11/10/17 11/11/17 11/11/17 22:01 05:27 06:30 WBC 6.9 D RBC 3.78 Hgb 11.3 L Hct 36.5 MCV 96.6 MCH 29.9 MCHC 31.0 RDW 17.2 H Plt Count 407 MPV 9.7 Gran % 72.7 H Lymph % (Auto) 14.1 L [place] % (Auto) 12.1 H Eos % (Auto) 1.0 L Baso % (Auto) 0.1 Gran # 5.04 Lymph # (Auto) 1.0 L [place] # (Auto) 0.8 H Eos # (Auto) 0.1 Baso # (Auto) 0.01 pCO2 52 H pO2 146.0 H HCO3 24.4 ABG pH 7.28 L ABG Total CO2 26.0 ABG O2 Saturation 99.6 H ABG O2 Content 14.8 L ABG Base Excess -2.7 L ABG Hemoglobin 10.7 L ABG Carboxyhemoglobin 1.5 POC ABG HHb (Measured) 0.4 ABG Methemoglobin 1.5 ABG O2 Capacity 14.9 L Hgb O2 Saturation 96.7 FiO2 50.0 POC Glucose (mg/dL) 110 Fingerstick Blood Sugar Results: 110 Critical Care Progress Note - Ventilator Checklist Head of Bed 30 Degrees: Yes Daily Sedation Vacation: Yes Daily Assessment of Readiness to Wean: Yes Daily Spontaneous Breathing Trial: Yes PUD Prophalyxis: Yes DVT Prophylaxis: Yes Oral Care with Chlorhexidine Gluconate {CHG}: Yes - Vent Settings MODE:: PRVC TIDAL VOLUME:: 300 RESP RATE:: 20 FIO2:: 50 PEEP:: 5 - Extremities/Vascular Does the Patient have a Central Venous Catheter?: No Does the Patient have a Basurto Catheter?: Yes Does the Patient need a Basurto Catheter?: Yes Catheter Insertion Criteria: Patient requires prolonged immobilization - Restraints Justification for Restraints: High risk for self extubation - Prophylaxis GI Prophylaxis GI: PPI - Prophylaxis DVT Prophylaxis DVT: Heparin SQ - Nutrition Nutrition: Nutrition Category Date Time Status NPO Diet [DIET] Diets 11/07/17 Breakfast Ordered Assessment/Plan - Assessment and Plan (Free Text) Assessment: Patient is a 77 y/o with pmhx of dementia, copd, htn, ckd questionable cva who was recently discharged from [facility] s/p hypercapneic respiratory failure s/p intubation and extubation and discharged, was readmitted to due weakness and lethargy. Patient was found to have hypernatremia due to dehydration with AVERY on ckd stage 5, hypernatremia has since resolved. Patient was transferred from ICU to [facility] and while there, patient was noted to have seizure like activity and AMS, had to be intubated for airway protection. Yesterday while in ICU, patient became eunice, had PEA arrest, but regained ROSC after multiple rounds of chest compressions and epi. Plan: Neurology: Patient had episode of seizure like activity on the floor, as per neuro on seizure on eeg, patient has uremic encephalopathy. - Valproate changed to keppra 500 bid. - CT head with no acute ischemic changes 2/17, no acute changes on repeat CT chest. - Will give sedation vacation - Neurology is following. Pulm- h/o COPD with chronic CO2 retention, s/p intubated for airway protection. Patient now has john pneumothoarax s/p chest tube. - Repeat chest x-ray with re-expansion of the lung john, chest tube placed to water seal as per surgery. - Will follow up with surgery for possible removal of chest tube. - ABG reviewed, will adjust vent settings accordingly. - Continue with protected lung ventilation strategies, pulm toileting, head of bead elevation above 35 degrees. - Continue with bronchodilators. Cardio: HTN- on hydralazine prn for sbp above 160. Patient is currently DNR. Renal: Avery on ckd stage 5- creatinine is stable, nephrology is following, will continue to monitor Hypernatremia resolved. Hypomagnesemia- will replete. Endo: On D5 1/2 NS due to npo status, and to avoid hypoglycemia. Heme: Chronic anemia- patient had hemoglobin of 7.7 yesterday, s/p 2 units, h/h stable. - Will continue to monitor ID: Sepsis with UTI and pneumonia as the possible source. BCx with no growth , urine culture with enterococcus feacalis. Leukocytosis resolved, bandemia resolved.. repeat chest x-ray with resolution of pneumonia Continue with merrem and doxy for uti/pna as per ID. GI: Will consider tube feeding if patient remains intubated. On Pepcid for Gi prophylaxis. Transaminitis likely shock liver from the code- will continue to monitor. DVT prophylaxis: heparin sc. Dispo-Pending family decision Trach/LTAC versus hospice. Patient seen, examined and case discussed with Dr Staples. - Date & Time Date: 11/11/17 Time: 09:40 <Fantasma Staples - Last Filed: 11/11/17 11:06> CCU Objective - Vital Signs / Intake & Output Vital Signs (Last 4 hours): Vital Signs Pulse Resp BP Pulse Ox 11/11/17 09:00 131/78 11/11/17 08:00 73 133/80 100 11/11/17 07:50 20 100 Intake and Output (Last 8hrs): Intake & Output 11/10/17 11/11/17 11/11/17 22:59 06:59 14:59 Intake Total 888 1466 Output Total 300 245 Balance 588 1221 Weight 103 lb Intake: IV 708 1466 IVPB 200 d5 0.5ns 600 1200 fentanyl 31 right ac 45 Other 180 Output: Chest Tube Drainage 60 95 Left 35 65 Right 25 30 Urine 240 150 Urethral (Basurto) 150 Urine, Voided 240 - Medications Active Medications: Active Medications Generic Name Dose Route Start Last Admin Trade Name Freq PRN Reason Stop Dose Admin Acetaminophen 650 mg 11/03/17 16:14 11/03/17 16:31 Tylenol 325mg Tab PO 650 mg Q4H PRN Administration Fever >100.4 F Calcium Acetate 667 mg 11/03/17 17:00 11/11/17 08:21 Phoslo PO 667 mg WM DAVID Administration Famotidine 20 mg 11/09/17 10:00 11/11/17 09:35 Pepcid IVP 20 mg DAILY DAVID Administration Heparin Sodium (Porcine) 5,000 units 11/09/17 10:00 11/11/17 09:35 Heparin SC 5,000 units Q12 DAVID Administration Protocol Hydralazine HCl 10 mg 11/10/17 03:45 11/11/17 00:12 Apresoline IVP 10 mg Q6H PRN Administration Systolic Blood Pressure Meropenem 250 mg/ Sodium 100 mls @ 100 mls/hr 11/07/17 18:15 11/11/17 05:24 Chloride IVPB 11/16/17 18:16 100 mls/hr Q12H DAVID Administration Protocol Fentanyl Citrate 1,000 mcg in 100 mls @ 2 mls/hr 11/10/17 09:24 11/11/17 06: 53 Fentanyl Citrate/Sodium Chloride 1 Mg/100 Ml IV 30 mcg/hr .Q24H PRN 3 mls/hr TITRATE PER MD ORDER Administration Protocol 20 MCG/HR Dextrose/Sodium Chloride 1,000 mls @ 100 mls/hr 11/10/17 10:58 11/10/17 23:53 Dextrose 5%/0.45% Ns 1000 Ml IV 100 mls/hr .Q10H DAVID Administration Levetiracetam 500 mg in 100 mls @ 400 mls/hr 11/10/17 22:00 11/11/17 09:36 Keppra 500mg Ivpb IVPB 400 mls/hr Q12 DAVID Administration Potassium Chloride 10 meq in 100 mls @ 50 mls/hr 11/11/17 09:17 11/11/17 09: 36 Potassium Chloride 10 Meq/100 Ml IVPB 11/11/17 11:16 50 mls/hr ONCE ONE Administration Doxycycline Hyclate 100 mg/ 100 mls @ 100 mls/hr 11/11/17 10:00 11/11/17 10: 57 Sodium Chloride IVPB 100 mls/hr Q12 DAVID Administration Protocol Levalbuterol HCl 0.63 mg 11/07/17 14:00 11/11/17 07:50 Xopenex IH 0.63 mg [id number] DAVID Administration Levalbuterol HCl 0.63 mg 11/07/17 09:26 11/07/17 09:40 Xopenex IH 0.63 mg Q2 PRN Administration Shortness of Breath - Patient Studies Lab Studies: Microbiology Studies 11/07/17 00:10 Blood Culture - Preliminary Blood NO GROWTH AFTER 3 DAYS 11/07/17 00:00 Blood Culture - Preliminary Blood NO GROWTH AFTER 3 DAYS 11/08/17 09:00 Gram Stain - Final Sputum Sputum Culture - Final Yeast Species Lab Studies 11/11/17 11/11/17 11/11/17 Range/Units 06:30 06:30 05:27 WBC 6.9 D (4.5-11.0) 10^3/ul RBC 3.78 (3.5-6.1) 10^6/uL Hgb 11.3 L (12.0-16.0) g/dL Hct 36.5 (36.0-48.0) % MCV 96.6 (80.0-105.0) fl MCH 29.9 (25.0-35.0) pg MCHC 31.0 (31.0-37.0) g/dl RDW 17.2 H (11.5-14.5) % Plt Count 407 (120.0-450.0) 10^3/uL MPV 9.7 (7.0-11.0) fl Gran % 72.7 H (50.0-68.0) % Lymph % (Auto) 14.1 L (22.0-35.0) % [place] % (Auto) 12.1 H (1.0-6.0) % Eos % (Auto) 1.0 L (1.5-5.0) % Baso % (Auto) 0.1 (0.0-3.0) % Gran # 5.04 (1.4-6.5) Lymph # (Auto) 1.0 L (1.2-3.4) [place] # (Auto) 0.8 H (0.1-0.6) Eos # (Auto) 0.1 (0.0-0.7) Baso # (Auto) 0.01 (0.0-2.0) K/mm3 pCO2 52 H (35-45) mm/Hg pO2 146.0 H (80-100) mm/Hg HCO3 24.4 (21-28) mmol/L ABG pH 7.28 L (7.35-7.45) ABG Total CO2 26.0 (22-28) mmol.L ABG O2 Saturation 99.6 H (95-98) % ABG O2 Content 14.8 L (15-23) ML/dl ABG Base Excess -2.7 L (-2.0-3.0) mmol/L ABG Hemoglobin 10.7 L (11.7-17.4) g/dL ABG Carboxyhemoglobin 1.5 (0.5-1.5) % POC ABG HHb (Measured) 0.4 (0-5) % ABG Methemoglobin 1.5 (0.0-3.0) % ABG O2 Capacity 14.9 L (16-24) mL/dl Hgb O2 Saturation 96.7 (95.0-98.0) % FiO2 50.0 % Sodium 144 (132-148) mmol/L Potassium 3.6 (3.6-5.0) mmol/L Chloride 109 H (98-107) mmol/L Carbon Dioxide 25 (21-33) mmol/L Anion Gap 15 (10-20) BUN 43 H (7-21) mg/dL Creatinine 3.8 H (0.7-1.2) mg/dl Est GFR ( Amer) 14 Est GFR (Non-Af Amer) 12 POC Glucose (mg/dL) (65-110) mg/dL Random Glucose 109 (70-110) mg/dL Calcium 9.1 (8.4-10.5) mg/dL Phosphorus 4.2 (2.5-4.5) mg/dL Magnesium 1.6 L (1.7-2.2) mg/dL Total Bilirubin 0.3 (0.2-1.3) mg/dL AST 44 H D (14-36) U/L ALT 57 H (7-56) U/L Alkaline Phosphatase 138 H (38-126) U/L Total Protein 6.0 (5.8-8.3) g/dL Albumin 2.9 L (3.0-4.8) g/dL Globulin 3.1 gm/dL Albumin/Globulin Ratio 0.9 L (1.1-1.8) 11/10/17 11/10/17 11/10/17 Range/Units 22:01 16:08 11:12 WBC (4.5-11.0) 10^3/ul RBC (3.5-6.1) 10^6/uL Hgb (12.0-16.0) g/dL Hct (36.0-48.0) % MCV (80.0-105.0) fl MCH (25.0-35.0) pg MCHC (31.0-37.0) g/dl RDW (11.5-14.5) % Plt Count (120.0-450.0) 10^3/uL MPV (7.0-11.0) fl Gran % (50.0-68.0) % Lymph % (Auto) (22.0-35.0) % [place] % (Auto) (1.0-6.0) % Eos % (Auto) (1.5-5.0) % Baso % (Auto) (0.0-3.0) % Gran # (1.4-6.5) Lymph # (Auto) (1.2-3.4) [place] # (Auto) (0.1-0.6) Eos # (Auto) (0.0-0.7) Baso # (Auto) (0.0-2.0) K/mm3 pCO2 (35-45) mm/Hg pO2 (80-100) mm/Hg HCO3 (21-28) mmol/L ABG pH (7.35-7.45) ABG Total CO2 (22-28) mmol.L ABG O2 Saturation (95-98) % ABG O2 Content (15-23) ML/dl ABG Base Excess (-2.0-3.0) mmol/L ABG Hemoglobin (11.7-17.4) g/dL ABG Carboxyhemoglobin (0.5-1.5) % POC ABG HHb (Measured) (0-5) % ABG Methemoglobin (0.0-3.0) % ABG O2 Capacity (16-24) mL/dl Hgb O2 Saturation (95.0-98.0) % FiO2 % Sodium (132-148) mmol/L Potassium (3.6-5.0) mmol/L Chloride (98-107) mmol/L Carbon Dioxide (21-33) mmol/L Anion Gap (10-20) BUN (7-21) mg/dL Creatinine (0.7-1.2) mg/dl Est GFR ( Amer) Est GFR (Non-Af Amer) POC Glucose (mg/dL) 110 120 H 89 (65-110) mg/dL Random Glucose (70-110) mg/dL Calcium (8.4-10.5) mg/dL Phosphorus (2.5-4.5) mg/dL Magnesium (1.7-2.2) mg/dL Total Bilirubin (0.2-1.3) mg/dL AST (14-36) U/L ALT (7-56) U/L Alkaline Phosphatase (38-126) U/L Total Protein (5.8-8.3) g/dL Albumin (3.0-4.8) g/dL Globulin gm/dL Albumin/Globulin Ratio (1.1-1.8) 11/10/17 Range/Units 07:33 WBC (4.5-11.0) 10^3/ul RBC (3.5-6.1) 10^6/uL Hgb (12.0-16.0) g/dL Hct (36.0-48.0) % MCV (80.0-105.0) fl MCH (25.0-35.0) pg MCHC (31.0-37.0) g/dl RDW (11.5-14.5) % Plt Count (120.0-450.0) 10^3/uL MPV (7.0-11.0) fl Gran % (50.0-68.0) % Lymph % (Auto) (22.0-35.0) % [place] % (Auto) (1.0-6.0) % Eos % (Auto) (1.5-5.0) % Baso % (Auto) (0.0-3.0) % Gran # (1.4-6.5) Lymph # (Auto) (1.2-3.4) [place] # (Auto) (0.1-0.6) Eos # (Auto) (0.0-0.7) Baso # (Auto) (0.0-2.0) K/mm3 pCO2 (35-45) mm/Hg pO2 (80-100) mm/Hg HCO3 (21-28) mmol/L ABG pH (7.35-7.45) ABG Total CO2 (22-28) mmol.L ABG O2 Saturation (95-98) % ABG O2 Content (15-23) ML/dl ABG Base Excess (-2.0-3.0) mmol/L ABG Hemoglobin (11.7-17.4) g/dL ABG Carboxyhemoglobin (0.5-1.5) % POC ABG HHb (Measured) (0-5) % ABG Methemoglobin (0.0-3.0) % ABG O2 Capacity (16-24) mL/dl Hgb O2 Saturation (95.0-98.0) % FiO2 % Sodium (132-148) mmol/L Potassium (3.6-5.0) mmol/L Chloride (98-107) mmol/L Carbon Dioxide (21-33) mmol/L Anion Gap (10-20) BUN (7-21) mg/dL Creatinine (0.7-1.2) mg/dl Est GFR ( Amer) Est GFR (Non-Af Amer) POC Glucose (mg/dL) 100 (65-110) mg/dL Random Glucose (70-110) mg/dL Calcium (8.4-10.5) mg/dL Phosphorus (2.5-4.5) mg/dL Magnesium (1.7-2.2) mg/dL Total Bilirubin (0.2-1.3) mg/dL AST (14-36) U/L ALT (7-56) U/L Alkaline Phosphatase (38-126) U/L Total Protein (5.8-8.3) g/dL Albumin (3.0-4.8) g/dL Globulin gm/dL Albumin/Globulin Ratio (1.1-1.8) Laboratory Results - last 24 hr 11/10/17 11/10/17 11/10/17 07:33 11:12 16:08 WBC RBC Hgb Hct MCV MCH MCHC RDW Plt Count MPV Gran % Lymph % (Auto) [place] % (Auto) Eos % (Auto) Baso % (Auto) Gran # Lymph # (Auto) [place] # (Auto) Eos # (Auto) Baso # (Auto) pCO2 pO2 HCO3 ABG pH ABG Total CO2 ABG O2 Saturation ABG O2 Content ABG Base Excess ABG Hemoglobin ABG Carboxyhemoglobin POC ABG HHb (Measured) ABG Methemoglobin ABG O2 Capacity Hgb O2 Saturation FiO2 Sodium Potassium Chloride Carbon Dioxide Anion Gap BUN Creatinine Est GFR ( Amer) Est GFR (Non-Af Amer) POC Glucose (mg/dL) 100 89 120 H Random Glucose Calcium Phosphorus Magnesium Total Bilirubin AST ALT Alkaline Phosphatase Total Protein Albumin Globulin Albumin/Globulin Ratio 11/10/17 11/11/17 11/11/17 22:01 05:27 06:30 WBC 6.9 D RBC 3.78 Hgb 11.3 L Hct 36.5 MCV 96.6 MCH 29.9 MCHC 31.0 RDW 17.2 H Plt Count 407 MPV 9.7 Gran % 72.7 H Lymph % (Auto) 14.1 L [place] % (Auto) 12.1 H Eos % (Auto) 1.0 L Baso % (Auto) 0.1 Gran # 5.04 Lymph # (Auto) 1.0 L [place] # (Auto) 0.8 H Eos # (Auto) 0.1 Baso # (Auto) 0.01 pCO2 52 H pO2 146.0 H HCO3 24.4 ABG pH 7.28 L ABG Total CO2 26.0 ABG O2 Saturation 99.6 H ABG O2 Content 14.8 L ABG Base Excess -2.7 L ABG Hemoglobin 10.7 L ABG Carboxyhemoglobin 1.5 POC ABG HHb (Measured) 0.4 ABG Methemoglobin 1.5 ABG O2 Capacity 14.9 L Hgb O2 Saturation 96.7 FiO2 50.0 Sodium Potassium Chloride Carbon Dioxide Anion Gap BUN Creatinine Est GFR ( Amer) Est GFR (Non-Af Amer) POC Glucose (mg/dL) 110 Random Glucose Calcium Phosphorus Magnesium Total Bilirubin AST ALT Alkaline Phosphatase Total Protein Albumin Globulin Albumin/Globulin Ratio 11/11/17 06:30 WBC RBC Hgb Hct MCV MCH MCHC RDW Plt Count MPV Gran % Lymph % (Auto) [place] % (Auto) Eos % (Auto) Baso % (Auto) Gran # Lymph # (Auto) [place] # (Auto) Eos # (Auto) Baso # (Auto) pCO2 pO2 HCO3 ABG pH ABG Total CO2 ABG O2 Saturation ABG O2 Content ABG Base Excess ABG Hemoglobin ABG Carboxyhemoglobin POC ABG HHb (Measured) ABG Methemoglobin ABG O2 Capacity Hgb O2 Saturation FiO2 Sodium 144 Potassium 3.6 Chloride 109 H Carbon Dioxide 25 Anion Gap 15 BUN 43 H Creatinine 3.8 H Est GFR ( Amer) 14 Est GFR (Non-Af Amer) 12 POC Glucose (mg/dL) Random Glucose 109 Calcium 9.1 Phosphorus 4.2 Magnesium 1.6 L Total Bilirubin 0.3 AST 44 H D ALT 57 H Alkaline Phosphatase 138 H Total Protein 6.0 Albumin 2.9 L Globulin 3.1 Albumin/Globulin Ratio 0.9 L Critical Care Progress Note - Nutrition Nutrition: Nutrition Category Date Time Status NPO Diet [DIET] Diets 11/07/17 Breakfast Ordered Assessment/Plan - Assessment and Plan (Free Text) Plan: Pt seen and examined on rounds with resident, agree with note with following additions/exceptions: 77yo female with PMHx of CKD, COPD, Dementia, CVA, a/w AMS, seizure activity, intubated. Pt had PEA cardiac arrest on 11/09, for 13 minutes, ROSC obtained. Patient noted to have b/l pneumothorax s/p CT placement bilateral by surgery, with subsequent lung re-expansion. Spoke to MJ the son, Kristyn/daughter, Rudy//HCP, yesterday in person and over the phone, the informed that they dont want to see the patient in this condition, and would like to possibly terminally extubate the patient today. Palliative care meeting set for today. AMS/Seizure Lethargy Hypernatremia Dehydration Acute on Chronic renal failure COPD s/p cardiac arrest s/p ROSC - currently afebrile, HD stable, comfortable, lethargic, not following commands - labs with HH stable, K stable, ABG acceptable - CT head repeat negative for acute findings - has biltaral CT in [place] on water seal, b/l lung with re-expansion, surgery following - palliative care meeting set for today for goals of care discussion Recommend: - cont with ventilatory support, low tidal vol ventilation, daily sedation vacation, daily ABG, CXR - antibiotics as per ID - follow up cultures - BP control - IVF - cont with Depakote as per Neuro - follow up Neuro - FS control - GI ppx - DVT ppx - palliative care follow up, possible terminal extubation today - poor prognosis - Monitor in MICU
[2017-11-11 07:27] LABS: ALB/GLOB RATIO 0.9 (1.1-1.8); ALBUMIN 2.9 g/dL (3.0-4.8); CALCIUM 9.1 mg/dL (8.4-10.5); MAGNESIUM 1.6 mg/dL (1.7-2.2)
--- NOTE | 2017-11-11 08:05 | RAD ---
HISTORY: BL pneumothorax with BL chest tubes COMPARISON: Comparison is made with 11/10/2017 FINDINGS: LUNGS: The ET tube is again seen at the appropriate position. Small opacity at the left lung base is noted may represent atelectasis. Otherwise no significant interval change in the lungs noted since the previous exam. PLEURA: Bilateral chest tubes are again seen in place . CARDIOVASCULAR: Normal. OSSEOUS STRUCTURES: No significant abnormalities. VISUALIZED UPPER ABDOMEN: The NG tube seen extending to the stomach. OTHER FINDINGS: Left-sided PICC line is again seen in place. IMPRESSION: Small opacity at the left lung base may represent atelectasis. Otherwise no significant interval change since the previous exam.
[2017-11-11] MEDS ORDERED: Magnesium Sulfate 2 GM in Sodium Chloride 0.9% 100 ML IV ONE (09:14)
[2017-11-11] MEDS: levETIRAcetam 500mg IVPB 500 MG/100 ML BAG IVPB SCH (09:36)
--- NOTE | 2017-11-11 09:46 | CP.PCM.PN ---
Subjective - Date & Time of Evaluation Date of Evaluation: 11/11/17 Time of Evaluation: 09:40 - Subjective Subjective: Still on the vent, still with bilateral chest tubes, no fevers overnight. Objective - Vital Signs/Intake and Output Vital Signs (last 24 hours): Temp Pulse Resp BP Pulse Ox 98.2 F 73 20 131/78 100 11/11/17 06:00 11/11/17 08:00 11/11/17 04:00 11/11/17 09:00 11/11/17 08:00 Intake and Output: 11/11/17 11/11/17 06:59 18:59 Intake Total 1466 Output Total 245 Balance 1221 - Medications Medications: Current Medications Acetaminophen (Tylenol 325mg Tab) 650 mg PO Q4H PRN PRN Reason: Fever >100.4 F Last Admin: 11/03/17 16:31 Dose: 650 mg Calcium Acetate (Phoslo) 667 mg PO WM [facility] Last Admin: 11/11/17 08:21 Dose: 667 mg Famotidine (Pepcid) 20 mg IVP DAILY [facility] Last Admin: 11/10/17 09:28 Dose: 20 mg Heparin Sodium (Porcine) (Heparin) 5,000 units SC Q12 DAVID PRN Reason: Protocol Last Admin: 11/10/17 21:03 Dose: 5,000 units Hydralazine HCl (Apresoline) 10 mg IVP Q6H PRN PRN Reason: Systolic Blood Pressure Last Admin: 11/11/17 00:12 Dose: 10 mg Meropenem 250 mg/ Sodium (Chloride) 100 mls @ 100 mls/hr IVPB Q12H DAVID PRN Reason: Protocol Stop: 11/16/17 18:16 Last Admin: 11/11/17 05:24 Dose: 100 mls/hr Fentanyl Citrate (Fentanyl Citrate/Sodium Chloride 1 Mg/100 Ml) 1,000 mcg in 100 mls @ 2 mls/hr IV .Q24H PRN; Protocol; 20 MCG/HR PRN Reason: TITRATE PER MD ORDER Last Admin: 11/11/17 06:53 Dose: 30 mcg/hr, 3 mls/hr Dextrose/Sodium Chloride (Dextrose 5%/0.45% Ns 1000 Ml) 1,000 mls @ 100 mls/hr IV .Q10H [facility] Last Admin: 11/10/17 23:53 Dose: 100 mls/hr Levetiracetam (Keppra 500mg Ivpb) 500 mg in 100 mls @ 400 mls/hr IVPB Q12 DAVID Last Admin: 11/10/17 21:03 Dose: 400 mls/hr Magnesium Sulfate 2 gm/ Sodium (Chloride) 104 mls @ 102 mls/hr IV ONCE ONE Stop: 11/11/17 10:15 Potassium Chloride (Potassium Chloride 10 Meq/100 Ml) 10 meq in 100 mls @ 50 mls/hr IVPB ONCE ONE Stop: 11/11/17 11:16 Levalbuterol HCl (Xopenex) 0.63 mg IH [id number] DAVID Last Admin: 11/11/17 07:50 Dose: 0.63 mg Levalbuterol HCl (Xopenex) 0.63 mg IH Q2 PRN PRN Reason: Shortness of Breath Last Admin: 11/07/17 09:40 Dose: 0.63 mg - Labs Labs: 11/11/17 06:30 11/11/17 06:30 PT 11.8 SECONDS (9.4-12.5) 11/09/17 18:32 INR 1.03 (0.93-1.08) 11/09/17 18:32 APTT 31.1 Seconds (25.1-36.5) 11/09/17 18:32 - Constitutional Appears: Other (intubated) - Head Exam Head Exam: NORMAL INSPECTION - ENT Exam Additional comments: ET tube in place - Respiratory Exam Respiratory Exam: Decreased Breath Sounds Additional comments: bilateral chest tubes in place - Cardiovascular Exam Cardiovascular Exam: +S1, +S2 - GI/Abdominal Exam GI & Abdominal Exam: Soft. absent: Tenderness Assessment and Plan - Assessment and Plan (Free Text) Plan: Assessment severe sepsis with VDRF due to HCAP with acute renal failure S/P bilateral chest tube placement new onset seizures Plan Continue Merrem day 4 and has been given a dose of IV Vancomycin and added Doxycycline; PCT is elevated but is not accurate since patient has renal failure will monitor if patient again has a seizure episode - will consider changing Merrem to another antibiotic if the patient does - currently on Valproate overall prognosis is poor - patient for possible terminal extubation as per nurse
--- NOTE | 2017-11-11 11:20 | CP.PCM.PN ---
Subjective - Date & Time of Evaluation Date of Evaluation: 11/11/17 Time of Evaluation: 10:30 - Subjective Subjective: Patient seen and examined at bedside this AM. Pt's chest tubes are functioning well without air leak with approximately 50cc's serosanguinous fluid output in the left and 100cc's serosanguinous fluid in the right. Patient saturaing well on PRVC mechanical ventilation with no acute distress. Objective - Vital Signs/Intake and Output Vital Signs (last 24 hours): Temp Pulse Resp BP Pulse Ox 98.2 F 73 20 131/78 100 11/11/17 06:00 11/11/17 08:00 11/11/17 07:50 11/11/17 09:00 11/11/17 08:00 Intake and Output: 11/11/17 11/11/17 06:59 18:59 Intake Total 1466 Output Total 245 Balance 1221 - Medications Medications: Current Medications Acetaminophen (Tylenol 325mg Tab) 650 mg PO Q4H PRN PRN Reason: Fever >100.4 F Last Admin: 11/03/17 16:31 Dose: 650 mg Calcium Acetate (Phoslo) 667 mg PO WM DAVID Last Admin: 11/11/17 08:21 Dose: 667 mg Famotidine (Pepcid) 20 mg IVP DAILY DAVID Last Admin: 11/11/17 09:35 Dose: 20 mg Heparin Sodium (Porcine) (Heparin) 5,000 units SC Q12 DAVID PRN Reason: Protocol Last Admin: 11/11/17 09:35 Dose: 5,000 units Hydralazine HCl (Apresoline) 10 mg IVP Q6H PRN PRN Reason: Systolic Blood Pressure Last Admin: 11/11/17 00:12 Dose: 10 mg Meropenem 250 mg/ Sodium (Chloride) 100 mls @ 100 mls/hr IVPB Q12H DAVID PRN Reason: Protocol Stop: 11/16/17 18:16 Last Admin: 11/11/17 05:24 Dose: 100 mls/hr Fentanyl Citrate (Fentanyl Citrate/Sodium Chloride 1 Mg/100 Ml) 1,000 mcg in 100 mls @ 2 mls/hr IV .Q24H PRN; Protocol; 20 MCG/HR PRN Reason: TITRATE PER MD ORDER Last Admin: 11/11/17 06:53 Dose: 30 mcg/hr, 3 mls/hr Dextrose/Sodium Chloride (Dextrose 5%/0.45% Ns 1000 Ml) 1,000 mls @ 100 mls/hr IV .Q10H [facility] Last Admin: 11/10/17 23:53 Dose: 100 mls/hr Levetiracetam (Keppra 500mg Ivpb) 500 mg in 100 mls @ 400 mls/hr IVPB Q12 [facility] Last Admin: 11/11/17 09:36 Dose: 400 mls/hr Doxycycline Hyclate 100 mg/ (Sodium Chloride) 100 mls @ 100 mls/hr IVPB Q12 DAVID PRN Reason: Protocol Last Admin: 11/11/17 10:57 Dose: 100 mls/hr Levalbuterol HCl (Xopenex) 0.63 mg IH [id number] [facility] Last Admin: 11/11/17 07:50 Dose: 0.63 mg Levalbuterol HCl (Xopenex) 0.63 mg IH Q2 PRN PRN Reason: Shortness of Breath Last Admin: 11/07/17 09:40 Dose: 0.63 mg - Labs Labs: 11/11/17 06:30 11/11/17 06:30 PT 11.8 SECONDS (9.4-12.5) 11/09/17 18:32 INR 1.03 (0.93-1.08) 11/09/17 18:32 APTT 31.1 Seconds (25.1-36.5) 11/09/17 18:32 - Constitutional Appears: No Acute Distress, Chronically Ill - Head Exam Head Exam: ATRAUMATIC, NORMOCEPHALIC - Eye Exam Eye Exam: Normal appearance. absent: Conjunctival injection, Scleral icterus - ENT Exam ENT Exam: Mucous Membranes Moist, Normal Oropharynx - Respiratory Exam Respiratory Exam: NORMAL BREATHING PATTERN. absent: Accessory Muscle Use, Respiratory Distress Additional comments: mechanically ventilated - GI/Abdominal Exam GI & Abdominal Exam: absent: Distended - Neurological Exam Neurological Exam: Altered - Psychiatric Exam Additional comments: sedated Assessment and Plan - Assessment and Plan (Free Text) Assessment: 77 y/o female s/p cardiac arrest and bilateral traumatic pneumothorax s/p BL chest tube placement Plan: -CXR this am without pnx -Follow up family plans for possible extubation today. If patient is not to be extubated will pull the left chest tube. -CXR in the AM -monitor output -pulmonary toilet Discussed with Dr. Manjit Aguiar, PGY2
[2017-11-11] MEDS ORDERED: Morphine 2 mg/ml ISec IVP STA (11:22)
[2017-11-11] MEDS ORDERED: Morphine PCA 1 mg/ml (30ml) 30 ML IV PRN (11:23)
--- NOTE | 2017-11-11 13:14 | CP.PCM.PN ---
Subjective - Date & Time of Evaluation Date of Evaluation: 11/11/17 Time of Evaluation: 10:10 - Subjective Subjective: Neuro progress note: Pt seen and examined at bedside. No acute events overnight. Pt is under hospice care now and extubated this morning. She is non verbal at baseline. Moves all extremities. Doesn't follow commands. 12 Point ROS unobtainable - pt is non verbal at baseline Objective - Vital Signs/Intake and Output Vital Signs (last 24 hours): Temp Pulse Resp BP Pulse Ox 98.2 F 73 20 131/78 100 11/11/17 06:00 11/11/17 08:00 11/11/17 07:50 11/11/17 09:00 11/11/17 08:00 Intake and Output: 11/11/17 11/11/17 06:59 18:59 Intake Total 1466 Output Total 245 Balance 1221 - Medications Medications: Current Medications Acetaminophen (Tylenol 650 Mg Supp) 650 mg RC Q4H PRN PRN Reason: Fever >100.4 F Meropenem 250 mg/ Sodium (Chloride) 100 mls @ 100 mls/hr IVPB Q12H DAVID PRN Reason: Protocol Stop: 11/16/17 18:16 Last Admin: 11/11/17 05:24 Dose: 100 mls/hr Morphine Sulfate (Morphine Urology Surgeon 1 Mg/Ml) 30 mls @ 1 mls/hr IV PRN PRN; Protocol ; 1 MG/HR PRN Reason: FUND DIRECTOR PER MD ORDER Levalbuterol HCl (Xopenex) 0.63 mg IH [id number] [facility] Last Admin: 11/11/17 07:50 Dose: 0.63 mg Scopolamine (Transderm-Scop) 1 patch TD Q3D [facility] - Labs Labs: 11/11/17 06:30 11/11/17 06:30 PT 11.8 SECONDS (9.4-12.5) 11/09/17 18:32 INR 1.03 (0.93-1.08) 11/09/17 18:32 APTT 31.1 Seconds (25.1-36.5) 11/09/17 18:32 - Constitutional Appears: No Acute Distress - Eye Exam Eye Exam: EOMI, PERRL Pupil Exam: NORMAL ACCOMODATION - Neurological Exam Neuro motor strength exam: Left Upper Extremity: 4, Right Upper Extremity: 4, Left Lower Extremity: 4, Right Lower Extremity: 4 Assessment and Plan - Assessment and Plan (Free Text) Assessment: 77-year-old woman with a past medical history of dementia (severe, non-verbal), COPD, HTN, CKD, CVA of who was sent from [facility] with increased lethargy and was found to have severe hypernatremia, and pneumonia. Pt had several witnessed seizures and required intubation for airway protection. s/p PEA arrest and ROSC was achieved following 13 minutes and 3 rounds of epi s/p john pneumothorax, chest tube insertion. S/p extubation. Pt on hospice care now. - F/u palliative care consult- pt is made hospice care today - EEG showed tripahsic wave consistent with uremic encephelapathy - Medical management per medical team and ICU Case and plan was reviewed and discussed in detail with Dr Zamarripa.
--- NOTE | 2017-11-11 14:08 | CP.PCM.PN ---
<Ember Magaña - Last Filed: 11/11/17 14:05> Subjective - Date & Time of Evaluation Date of Evaluation: 11/11/17 Time of Evaluation: 14:05 - Subjective Subjective: Ember Magaña, PGY1, Medicine Progress Note for Dr Langley: Patient seen and examined at bedside. No acute events overnight. Pt remains the same, intubated, lethargic, minimal response to pain. Lyndsey Paramonte and son at bedside, explained pt's terminal condition, agreed to terminal extubation. ROS limited due to pt's AMS. Objective - Vital Signs/Intake and Output Vital Signs (last 24 hours): Temp Pulse Resp BP Pulse Ox 98.2 F 73 20 131/78 100 11/11/17 06:00 11/11/17 08:00 11/11/17 07:50 11/11/17 09:00 11/11/17 08:00 Intake and Output: 11/11/17 11/11/17 06:59 18:59 Intake Total 1466 Output Total 245 Balance 1221 - Medications Medications: Current Medications Acetaminophen (Tylenol 650 Mg Supp) 650 mg RC Q4H PRN PRN Reason: Fever >100.4 F Morphine Sulfate (Morphine Lace Winder 1 Mg/Ml) 30 mls @ 1 mls/hr IV PRN PRN; Protocol ; 1 MG/HR PRN Reason: EDUCATION ADMINISTRATOR PER MD ORDER Scopolamine (Transderm-Scop) 1 patch TD Q3D DAVID - Labs Labs: 11/11/17 06:30 11/11/17 06:30 PT 11.8 SECONDS (9.4-12.5) 11/09/17 18:32 INR 1.03 (0.93-1.08) 11/09/17 18:32 APTT 31.1 Seconds (25.1-36.5) 11/09/17 18:32 - Additional Findings Additional findings: - Constitutional Appears: In Acute Distress, Older Than Stated Age, Chronically Ill - Head Exam Head Exam: ATRAUMATIC, NORMOCEPHALIC - Eye Exam Eye Exam: absent: Conjunctival injection, Nystagmus, Scleral icterus Additional comments: sluggish pupillary reaction to light. - ENT Exam ENT Exam: Mucous Membranes Moist - Respiratory Exam Respiratory Exam: Rhonchi. absent: Accessory Muscle Use, Rales, Wheezes Additional comments: intubated - Cardiovascular Exam Cardiovascular Exam: RRR, +S1, +S2. absent: Tachycardia, Murmur - GI/Abdominal Exam GI & Abdominal Exam: Soft, Normal Bowel Sounds. absent: Distended, Firm, Guarding, Tenderness, Mass, Organomegaly, Rebound - Extremities Exam Extremities Exam: Normal Inspection. absent: Calf Tenderness, Pedal Edema - Back Exam Back Exam: NORMAL INSPECTION. absent: CVA tenderness (L), CVA tenderness (R) - Neurological Exam Neurological Exam: Altered - Psychiatric Exam Psychiatric exam: Normal Affect, Normal Mood - Skin Skin Exam: Dry, Normal Color, Warm Assessment and Plan - Assessment and Plan (Free Text) Assessment: 77 year old female with a past medical history significant for HTN, asthma, Parkinson's, recent [facility] [place] for AMS/hypernatremia who presented for AMS, FTT, hypernatremia, and AVERY. Patient was medically cleared for med/surg level of care and was awaiting placement in [facility]. On 11/07, patient noted to be agitated , requiring restraints to maintain NRB mask in place. FILTER HELPER was called after patient had a seizure witnessed by nursing staff, for which she received one dose of ativan and keppra. Neurology was consulted and started on IV Depakote 500mg BID. Pulmonology was consulted and deemed patient unable to protect her airway, for which she was intubated and transferred to the ICU. Pt had Code Blue yesterday evening, received 9 mins of CPR with 3 doses epi, 1 dose bicarb, with ROSC afterwards. Pt to undergo terminal extubation, as discussed with family/Lyndsey Paramonte. Will provide comfort measures: morphine drip, tylenol prn , scopolamine patch. Family at bedside. Patient seen and case discussed with attending, Dr. Langley. <Kathy Langley - Last Filed: 11/11/17 14:49> Objective - Vital Signs/Intake and Output Vital Signs (last 24 hours): Temp Pulse Resp BP Pulse Ox 98.2 F 73 20 131/78 100 11/11/17 06:00 11/11/17 08:00 11/11/17 07:50 11/11/17 09:00 11/11/17 08:00 Intake and Output: 11/11/17 11/11/17 06:59 18:59 Intake Total 1466 Output Total 245 Balance 1221 - Medications Medications: Current Medications Acetaminophen (Tylenol 650 Mg Supp) 650 mg RC Q4H PRN PRN Reason: Fever >100.4 F Morphine Sulfate (Morphine Lace Winder 1 Mg/Ml) 30 mls @ 1 mls/hr IV PRN PRN; Protocol ; 1 MG/HR PRN Reason: EDUCATION ADMINISTRATOR PER MD ORDER Scopolamine (Transderm-Scop) 1 patch TD Q3D DAVID - Labs Labs: 11/11/17 06:30 11/11/17 06:30 PT 11.8 SECONDS (9.4-12.5) 11/09/17 18:32 INR 1.03 (0.93-1.08) 11/09/17 18:32 APTT 31.1 Seconds (25.1-36.5) 11/09/17 18:32 Attending/Attestation - Attestation I have personally seen and examined this patient.: Yes I have fully participated in the care of the patient.: Yes I have reviewed all pertinent clinical information, including history, physical exam and plan: Yes Notes (Text): 11/11/17 14:43 Patient was seen and examined with medical research assistant. 77 year old female with past medical history of hypertension and asthma /COPD was admitted with altered mental status , hypernatremia , acute on chronic renal failure. Patient is SP cardiac arrest 2 days back, devloped bilateral Pneumothorax after CPR and had bilateral chest tube placed in. Family meeting was done today by me,Patient family has made her DNR and DNI and is planning for extubation.Patient will be started on comfort measures as per family wishes. All questions were answered. Prognosis is guarded.
--- NOTE | 2017-11-11 15:51 | CP.PCM.PN ---
Subjective - Date & Time of Evaluation Date of Evaluation: 11/11/17 Time of Evaluation: 12:00 - Subjective Subjective: Somnolent Objective - Vital Signs/Intake and Output Vital Signs (last 24 hours): Temp Pulse Resp BP Pulse Ox 98.2 F 73 20 131/78 100 11/11/17 06:00 11/11/17 08:00 11/11/17 07:50 11/11/17 09:00 11/11/17 08:00 Intake and Output: 11/11/17 11/11/17 06:59 18:59 Intake Total 1466 Output Total 245 Balance 1221 - Medications Medications: Current Medications Acetaminophen (Tylenol 650 Mg Supp) 650 mg RC Q4H PRN PRN Reason: Fever >100.4 F Morphine Sulfate (Morphine Bronze Plater 1 Mg/Ml) 30 mls @ 1 mls/hr IV PRN PRN; Protocol ; 1 MG/HR PRN Reason: GRAVITY METER OPERATOR PER MD ORDER Lorazepam (Ativan) 1 mg IM Q12H DAVID PRN Reason: Protocol Scopolamine (Transderm-Scop) 1 patch TD Q3D DAVID - Labs Labs: 11/11/17 06:30 11/11/17 06:30 PT 11.8 SECONDS (9.4-12.5) 11/09/17 18:32 INR 1.03 (0.93-1.08) 11/09/17 18:32 APTT 31.1 Seconds (25.1-36.5) 11/09/17 18:32 - Constitutional Appears: Chronically Ill - Eye Exam Eye Exam: PERRL - ENT Exam ENT Exam: Mucous Membranes Moist - Respiratory Exam Respiratory Exam: Decreased Breath Sounds - Cardiovascular Exam Cardiovascular Exam: REGULAR RHYTHM, +S1, +S2 - GI/Abdominal Exam GI & Abdominal Exam: Soft, Diminished Bowel Sounds - Extremities Exam Extremities Exam: Pedal Edema - Back Exam Back Exam: NORMAL INSPECTION - Neurological Exam Neurological Exam: Altered - Skin Skin Exam: Dry, Warm Assessment and Plan - Assessment and Plan (Free Text) Assessment: 77 year old female with history of HTN, CVA who is admitted with CVA, AVERY, seizures, s/p cardiopulmonary arrest, intubated. Patients son at bedside, patients and daughter Parul on conference call. After discussion regarding burdens of intubation/ PEG/ trach, family has decided to proceed with terminal extubation. Family aware that patient's prognosis is very poor. Family do not want measures to prolong life. Family requesting that patient be made comfort care. End of life counseling provided.Psychosocial support given Time spent with family in end of life counseling, 30 minutes Plan: Terminal extubation DNR/DNI Comfort care only End of life counseling/psychosocial support
--- NOTE | 2017-11-11 22:49 | PN ---
DATE: 11/11/2017 SUBJECTIVE: Patient is lying in bed in the ICU. She is extubated. PHYSICAL EXAMINATION: GENERAL: Elderly lady, lying in bed. VITAL SIGNS: Blood pressure 120/68, heart rate 66, respiratory rate 10. LABORATORY DATA: Hemoglobin 11.3. Sodium 144, potassium 3.6, chloride 109, CO2 25, BUN 43, creatinine 3.8, glucose 109, calcium 9.1, phosphorus 4.2, magnesium 1.6. ASSESSMENT: 1. Advanced chronic kidney disease, stage V. 2. Resolved acute kidney injury. 3. Anemia of chronic kidney disease. 4. Advanced dementia. PLAN: 1. Discussed with Dr. Madrid,patient has been terminally extubated, she is hospice care now. 2. We will discontinue followup. 3. Comfort . Juli Montelongo MD
[2017-11-12] MEDS: Morphine PCA 1 mg/ml (30ml) 30 ML IV PRN (11:02)
--- NOTE | 2017-11-12 11:52 | CP.PCM.PN ---
Subjective - Date & Time of Evaluation Date of Evaluation: 11/12/17 Time of Evaluation: 11:00 - Subjective Subjective: Restless, reacts to painful stimuli Objective - Vital Signs/Intake and Output Vital Signs (last 24 hours): Temp Pulse Resp BP Pulse Ox 97.6 F 84 20 118/75 100 11/12/17 08:13 11/11/17 22:00 11/11/17 22:00 11/12/17 08:13 11/12/17 08:13 Intake and Output: 11/12/17 11/12/17 06:59 18:59 Intake Total 0 Output Total 300 Balance -300 - Medications Medications: Current Medications Acetaminophen (Tylenol 650 Mg Supp) 650 mg RC Q4H PRN PRN Reason: Fever >100.4 F Morphine Sulfate (Morphine Installations Inspector 1 Mg/Ml) 30 mls @ 2 mls/hr IV PRN PRN; Protocol ; 2 MG/HR PRN Reason: OPS MANAGER PER MD ORDER Last Admin: 11/12/17 11:02 Dose: 2 mg/hr, 2 mls/hr Lorazepam (Ativan) 1 mg IM Q12H DAVID PRN Reason: Protocol Scopolamine (Transderm-Scop) 1 patch TD Q3D DAVID Last Admin: 11/11/17 16:09 Dose: 1 patch - Labs Labs: 11/11/17 06:30 11/11/17 06:30 PT 11.8 SECONDS (9.4-12.5) 11/09/17 18:32 INR 1.03 (0.93-1.08) 11/09/17 18:32 APTT 31.1 Seconds (25.1-36.5) 11/09/17 18:32 - Constitutional Appears: Chronically Ill - Head Exam Head Exam: NORMAL INSPECTION - Eye Exam Eye Exam: Normal appearance Additional comments: sluggish - ENT Exam ENT Exam: Mucous Membranes Dry - Respiratory Exam Respiratory Exam: Decreased Breath Sounds, NORMAL BREATHING PATTERN Additional comments: right chest tube clamoned. left chest tube small amount of serous fluid drainage - GI/Abdominal Exam GI & Abdominal Exam: Soft, Diminished Bowel Sounds - Extremities Exam Extremities Exam: Normal Capillary Refill, Pedal Edema - Psychiatric Exam Additional comments: restless Assessment and Plan - Assessment and Plan (Free Text) Assessment: 77 year old female with history of HTN, CVA who is admitted with CVA, s/p cardiopulmonary arrest, s/p terminal extubation, bilateral pneumothorax, bilateral chest tubes. At families request the patient has been transjoied to comfort care. The patient is receiving pain and symptom management only. Family updated of patient condition End of life counseling provided Plan: Morphine 2mg continuos IV infusion Ativan 1 mg now. Ativan 1 mg IV every 12 hours scheduled dosing for seizure prevention Scopolamine transdermal patch. Right chest tube clamped will have surgery remove. Tylenol RC as needed for fever over 100F End of life counseling
--- NOTE | 2017-11-12 13:43 | CP.PCM.PN ---
Subjective - Date & Time of Evaluation Date of Evaluation: 11/12/17 Time of Evaluation: 13:39 - Subjective Subjective: Ms. Sylvester was seen and examined at the bedside. Currently receiving morphine drip responsive to pain stimuli. She has bilateral chest tube draining to a serosanguinous fluid. The patient in under the management of hospice since yesterday. Objective - Vital Signs/Intake and Output Vital Signs (last 24 hours): Temp Pulse Resp BP Pulse Ox 97.6 F 84 20 118/75 100 11/12/17 08:13 11/11/17 22:00 11/11/17 22:00 11/12/17 08:13 11/12/17 08:13 Intake and Output: 11/12/17 11/12/17 06:59 18:59 Intake Total 0 Output Total 300 Balance -300 - Medications Medications: Current Medications Acetaminophen (Tylenol 650 Mg Supp) 650 mg RC Q4H PRN PRN Reason: Fever >100.4 F Morphine Sulfate (Morphine Sales Representative Health Insurance 1 Mg/Ml) 30 mls @ 2 mls/hr IV PRN PRN; Protocol ; 2 MG/HR PRN Reason: MARKET RESEARCH INTERVIEWER PER MD ORDER Last Admin: 11/12/17 11:02 Dose: 2 mg/hr, 2 mls/hr Lorazepam (Ativan) 1 mg IM Q12H DAVID PRN Reason: Protocol Scopolamine (Transderm-Scop) 1 patch TD Q3D DAVID Last Admin: 11/11/17 16:09 Dose: 1 patch - Labs Labs: 11/11/17 06:30 11/11/17 06:30 PT 11.8 SECONDS (9.4-12.5) 11/09/17 18:32 INR 1.03 (0.93-1.08) 11/09/17 18:32 APTT 31.1 Seconds (25.1-36.5) 11/09/17 18:32 - Constitutional Appears: No Acute Distress - Head Exam Head Exam: NORMAL INSPECTION - Neurological Exam Neuro motor strength exam: Left Upper Extremity: 0, Right Upper Extremity: 0, Left Lower Extremity: 0, Right Lower Extremity: 0 Additional comments: only responsive to pain stimuli on morphine drip. Assessment and Plan (1) Seizure Assessment & Plan: Case discussed with Dr. Zamarripa, continue palliative management. The neurology is signing off from this case. Status: Acute
--- NOTE | 2017-11-12 14:09 | CP.PCM.PN ---
<Ember Magaña - Last Filed: 11/12/17 14:06> Subjective - Date & Time of Evaluation Date of Evaluation: 11/12/17 Time of Evaluation: 14:06 - Subjective Subjective: Ember Magaña, PGY1, Medicine Progress Note for Dr Langley: Patient seen and examined at bedside. No acute events overnight. Pt on morphine drip, on NC, appears comfortable in bed. ROS limited due to pt's AMS. Objective - Vital Signs/Intake and Output Vital Signs (last 24 hours): Temp Pulse Resp BP Pulse Ox 97.6 F 84 20 118/75 100 11/12/17 08:13 11/11/17 22:00 11/11/17 22:00 11/12/17 08:13 11/12/17 08:13 Intake and Output: 11/12/17 11/12/17 06:59 18:59 Intake Total 0 Output Total 300 Balance -300 - Medications Medications: Current Medications Acetaminophen (Tylenol 650 Mg Supp) 650 mg RC Q4H PRN PRN Reason: Fever >100.4 F Morphine Sulfate (Morphine Casino Gaming Inspector 1 Mg/Ml) 30 mls @ 2 mls/hr IV PRN PRN; Protocol ; 2 MG/HR PRN Reason: ELEMENTARY TEACHER PER MD ORDER Last Admin: 11/12/17 11:02 Dose: 2 mg/hr, 2 mls/hr Lorazepam (Ativan) 1 mg IM Q12H DAVID PRN Reason: Protocol Scopolamine (Transderm-Scop) 1 patch TD Q3D DAVID Last Admin: 11/11/17 16:09 Dose: 1 patch - Labs Labs: 11/11/17 06:30 11/11/17 06:30 PT 11.8 SECONDS (9.4-12.5) 11/09/17 18:32 INR 1.03 (0.93-1.08) 11/09/17 18:32 APTT 31.1 Seconds (25.1-36.5) 11/09/17 18:32 - Constitutional Appears: Cachectic, Chronically Ill - Head Exam Head Exam: ATRAUMATIC, NORMOCEPHALIC - Eye Exam Eye Exam: PERRL. absent: Conjunctival injection, Nystagmus, Scleral icterus Pupil Exam: PERRL. absent: Irregular, Miosis - ENT Exam ENT Exam: Mucous Membranes Moist - Neck Exam Neck Exam: Full ROM - Respiratory Exam Respiratory Exam: Clear to Ausculation Bilateral. absent: Accessory Muscle Use , Rales, Wheezes - Cardiovascular Exam Cardiovascular Exam: RRR, +S1, +S2. absent: Murmur - GI/Abdominal Exam GI & Abdominal Exam: Soft, Normal Bowel Sounds. absent: Distended, Tenderness, Mass, Organomegaly, Rebound - Extremities Exam Extremities Exam: Normal Inspection. absent: Pedal Edema - Back Exam Back Exam: NORMAL INSPECTION - Neurological Exam Neurological Exam: Altered - Psychiatric Exam Additional comments: somnolent - Skin Skin Exam: Dry, Normal Color, Warm Assessment and Plan - Assessment and Plan (Free Text) Assessment: 77 year old female with a past medical history significant for HTN, asthma, Parkinson's, recent [facility] admission for AMS/hypernatremia who presented for AMS, FTT, hypernatremia, and AVERY. Patient was medically cleared for med/surg level of care and was awaiting placement in [facility]. On 11/07, BACTERIOLOGY TEACHER was called after patient had a seizure witnessed by nursing staff 2/2 likely hypoxia. Pt required intubation for airway protection and transferred to the ICU. Pt then had cardaic arrest, received 9 mins of CPR with 3 doses epi, 1 dose bicarb, with ROSC afterwards. Discussed with family the terminal prognosis of patient's condition, family agreed for terminal extubation, DNR/DNI, and comfort measures. Pt on morphine drip, tylenol prn, scopolamine patch. Remains comfortable in bed. Patient seen and case discussed with attending, Dr. Langley. <Kathy Langley - Last Filed: 11/12/17 18:35> Objective - Vital Signs/Intake and Output Vital Signs (last 24 hours): Temp Pulse Resp BP Pulse Ox 97.6 F 81 19 100/60 99 11/12/17 08:13 11/12/17 16:00 11/12/17 16:00 11/12/17 16:00 11/12/17 16:00 Intake and Output: 11/12/17 11/12/17 06:59 18:59 Intake Total 0 0 Output Total 300 250 Balance -300 -250 - Medications Medications: Current Medications Acetaminophen (Tylenol 650 Mg Supp) 650 mg RC Q4H PRN PRN Reason: Fever >100.4 F Morphine Sulfate (Morphine Casino Gaming Inspector 1 Mg/Ml) 30 mls @ 2 mls/hr IV PRN PRN; Protocol ; 2 MG/HR PRN Reason: ELEMENTARY TEACHER PER MD ORDER Last Admin: 11/12/17 11:02 Dose: 2 mg/hr, 2 mls/hr Lorazepam (Ativan) 1 mg IM Q12H DAVID PRN Reason: Protocol Scopolamine (Transderm-Scop) 1 patch TD Q3D DAVID Last Admin: 11/11/17 16:09 Dose: 1 patch - Labs Labs: 11/11/17 06:30 11/11/17 06:30 PT 11.8 SECONDS (9.4-12.5) 11/09/17 18:32 INR 1.03 (0.93-1.08) 11/09/17 18:32 APTT 31.1 Seconds (25.1-36.5) 11/09/17 18:32 Attending/Attestation - Attestation I have personally seen and examined this patient.: Yes I have fully participated in the care of the patient.: Yes I have reviewed all pertinent clinical information, including history, physical exam and plan: Yes Notes (Text): 11/12/17 18:34 Patient was seen and examined with medical assistant float. Agreed with assessment and plan. Patient was extubated yesterday, now on comfort measures.We will continue supportive care. Prognosis is guarded.
[2017-11-12 18:28] VITALS: O2SAT 99
[2017-11-13] MEDS: Morphine PCA 1 mg/ml (30ml) 30 ML IV PRN ×2 (00:14→16:27)
--- NOTE | 2017-11-13 09:30 | CP.PCM.PN ---
Subjective - Date & Time of Evaluation Date of Evaluation: 11/13/17 Time of Evaluation: 10:00 - Subjective Subjective: Pupils fixed. urine out put sparse. Objective - Vital Signs/Intake and Output Vital Signs (last 24 hours): Temp Pulse Resp BP Pulse Ox 97.6 F 81 19 100/60 99 11/12/17 08:13 11/12/17 16:00 11/12/17 16:00 11/12/17 16:00 11/12/17 16:00 Intake and Output: 11/13/17 11/13/17 06:59 18:59 Intake Total 30 0 Output Total 0 Balance 30 0 - Medications Medications: Current Medications Acetaminophen (Tylenol 650 Mg Supp) 650 mg RC Q4H PRN PRN Reason: Fever >100.4 F Morphine Sulfate (Morphine Stock Checker 1 Mg/Ml) 30 mls @ 2 mls/hr IV PRN PRN; Protocol ; 2 MG/HR PRN Reason: MANUFACTURERS AGENT PER MD ORDER Last Admin: 11/13/17 00:14 Dose: 2 mg/hr, 2 mls/hr Lorazepam (Ativan) 1 mg IM Q12H DAVID PRN Reason: Protocol Last Admin: 11/13/17 00:21 Dose: 1 mg Scopolamine (Transderm-Scop) 1 patch TD Q3D DAVID Last Admin: 11/11/17 16:09 Dose: 1 patch - Labs Labs: 11/11/17 06:30 11/11/17 06:30 PT 11.8 SECONDS (9.4-12.5) 11/09/17 18:32 INR 1.03 (0.93-1.08) 11/09/17 18:32 APTT 31.1 Seconds (25.1-36.5) 11/09/17 18:32 - Constitutional Appears: Chronically Ill - Eye Exam Pupil Exam: Fixed - ENT Exam ENT Exam: Mucous Membranes Dry - Respiratory Exam Respiratory Exam: Decreased Breath Sounds, NORMAL BREATHING PATTERN - Cardiovascular Exam Cardiovascular Exam: REGULAR RHYTHM, +S1, +S2 - Extremities Exam Additional comments: decreased pedal pulses - Neurological Exam Additional comments: comatose - Skin Skin Exam: Dry, Warm Assessment and Plan - Assessment and Plan (Free Text) Assessment: 77 year old female with history of HTN, CVA who is admitted with sepsis, CVA, s/ p cardiopulmonary arrest, s/p terminal extubation. At familiy's request the patient to receive comfort measures only Family updated of patients condition. Psychosocial support given. Plan: Morphine 2mIV continuos infusion. Ativan 1 mg scheduled every 12 hours for seizure prevention. Tylenol 650 mg RC for fever over 100F. Scopolamine transdermal patch to decrease respiratory secretions> Family support
[2017-11-13] MEDS ORDERED: Albuterol-Ipratrop 3 mg / 0.5 (3 ml) UD IH PRN (11:55)
--- NOTE | 2017-11-13 11:56 | CP.PCM.PN ---
<Ember Magaña - Last Filed: 11/13/17 11:52> Subjective - Date & Time of Evaluation Date of Evaluation: 11/13/17 Time of Evaluation: 11:52 - Subjective Subjective: Ember Magaña, PGY1, Medicine Progress Note for Dr Langley: Patient seen and examined at bedside. No acute events overnight. Pt on morphine drip, on NC, appears comfortable in bed. R chest tube pulled out, still draining SS fluid from left chest tube. Family at bedside, comforted family regarding pt's condition. ROS limited due to pt's AMS. Objective - Vital Signs/Intake and Output Vital Signs (last 24 hours): Temp Pulse Resp BP Pulse Ox 97.6 F 81 19 100/60 99 11/12/17 08:13 11/12/17 16:00 11/12/17 16:00 11/12/17 16:00 11/12/17 16:00 Intake and Output: 11/13/17 11/13/17 06:59 18:59 Intake Total 30 0 Output Total 0 Balance 30 0 - Medications Medications: Current Medications Acetaminophen (Tylenol 650 Mg Supp) 650 mg RC Q4H PRN PRN Reason: Fever >100.4 F Morphine Sulfate (Morphine Window Installation Subcontractor 1 Mg/Ml) 30 mls @ 2 mls/hr IV PRN PRN; Protocol ; 2 MG/HR PRN Reason: BALL ROLLING MACHINE OPERATOR PER MD ORDER Last Admin: 11/13/17 00:14 Dose: 2 mg/hr, 2 mls/hr Lorazepam (Ativan) 1 mg IM Q12H DAVID PRN Reason: Protocol Last Admin: 11/13/17 09:38 Dose: 1 mg Scopolamine (Transderm-Scop) 1 patch TD Q3D DAVID - Labs Labs: 11/11/17 06:30 11/11/17 06:30 PT 11.8 SECONDS (9.4-12.5) 11/09/17 18:32 INR 1.03 (0.93-1.08) 11/09/17 18:32 APTT 31.1 Seconds (25.1-36.5) 11/09/17 18:32 - Constitutional Appears: Older Than Stated Age, Cachectic, Chronically Ill - Head Exam Head Exam: ATRAUMATIC, NORMOCEPHALIC - Eye Exam Pupil Exam: Fixed - ENT Exam ENT Exam: Mucous Membranes Dry - Neck Exam Neck Exam: absent: Tenderness, Thyromegaly - Respiratory Exam Respiratory Exam: Chest Wall Tenderness, Rales. absent: Accessory Muscle Use, Respiratory Distress - Cardiovascular Exam Cardiovascular Exam: +S1, +S2. absent: Murmur - GI/Abdominal Exam GI & Abdominal Exam: Soft, Normal Bowel Sounds. absent: Distended, Tenderness, Organomegaly, Rebound - Extremities Exam Extremities Exam: Normal Inspection - Back Exam Back Exam: NORMAL INSPECTION - Neurological Exam Neurological Exam: Altered - Psychiatric Exam Additional comments: somnolent - Skin Skin Exam: Normal Color, Warm Assessment and Plan - Assessment and Plan (Free Text) Assessment: 77 year old female with a past medical history significant for HTN, asthma, Parkinson's, recent [facility] admission for AMS/hypernatremia who presented for AMS, FTT, hypernatremia, and AVERY. Patient was medically cleared for med/surg level of care and was awaiting placement in [facility]. On 11/07, FINANCIAL MARKET DEALER was called after patient had a seizure witnessed by nursing staff 2/2 likely hypoxia. Pt required intubation for airway protection and transferred to the ICU. Pt then had cardaic arrest, received 9 mins of CPR with 3 doses epi, 1 dose bicarb, with ROSC afterwards. Discussed with family the terminal prognosis of patient's condition, family agreed for terminal extubation, DNR/DNI, and comfort measures. Pt on morphine drip, tylenol prn, scopolamine patch. Started duonebs. Remains comfortable in bed. Patient seen and case discussed with attending, Dr. Langley. <Kathy Langley - Last Filed: 11/13/17 13:36> Objective - Vital Signs/Intake and Output Vital Signs (last 24 hours): Temp Pulse Resp BP Pulse Ox 97.6 F 81 19 100/60 99 11/12/17 08:13 11/12/17 16:00 11/12/17 16:00 11/12/17 16:00 11/12/17 16:00 Intake and Output: 11/13/17 11/13/17 06:59 18:59 Intake Total 30 0 Output Total 0 Balance 30 0 - Medications Medications: Current Medications Acetaminophen (Tylenol 650 Mg Supp) 650 mg RC Q4H PRN PRN Reason: Fever >100.4 F Albuterol/Ipratropium (Duoneb 3 Mg/0.5 Mg (3 Ml) Ud) 3 ml IH [id number] PRN PRN Reason: Wheezing Morphine Sulfate (Morphine Window Installation Subcontractor 1 Mg/Ml) 30 mls @ 2 mls/hr IV PRN PRN; Protocol ; 2 MG/HR PRN Reason: BALL ROLLING MACHINE OPERATOR PER MD ORDER Last Admin: 11/13/17 00:14 Dose: 2 mg/hr, 2 mls/hr Lorazepam (Ativan) 1 mg IM Q12H DAVID PRN Reason: Protocol Last Admin: 11/13/17 09:38 Dose: 1 mg Scopolamine (Transderm-Scop) 1 patch TD Q3D DAVID - Labs Labs: 11/11/17 06:30 11/11/17 06:30 PT 11.8 SECONDS (9.4-12.5) 11/09/17 18:32 INR 1.03 (0.93-1.08) 11/09/17 18:32 APTT 31.1 Seconds (25.1-36.5) 11/09/17 18:32 Attending/Attestation - Attestation I have personally seen and examined this patient.: Yes I have fully participated in the care of the patient.: Yes I have reviewed all pertinent clinical information, including history, physical exam and plan: Yes Notes (Text): 11/13/17 13:33 Patient was seen and examined with claim review medical director. Agreed with assessment and plan. Management plan was discussed in detail with patient. Education was provided.
[2017-11-13 15:14] VITALS: BP 48/27; PULSE 51; RESP 10; TEMP 98.5
--- NOTE | 2017-11-13 18:57 | CP.PCM.PRO ---
Pronouncement of Note - Clinical Findings Physical Exam: No Response Verbal/Painful Stimuli, Absent Peripheral Pulses{ Carotid & Femoral}, Absent Heart & Breath Sounds, No Pupillary Light Reflex, No Corneal Reflex, Pupils Fixed & Dilated, Absence of Vital Signs - Pronouncement Time Time of Pronouncement of : 18:35 - Notifications Pronouncement Notifications: Family Notified (Family was at the bed side.), Atending Notified Bladder Trimmer Notified: No - Autopsy Autopsy Requested: No - [place] [id number]
--- NOTE | 2017-11-16 11:32 | PQF RESP ---
11/16/17 Dr. Langley, Patient had respiratory acidosis, placed on ventilator on 11/07/17. Please specify if patient had acute/chronic respiratory failure with or without hypercapnia/hypoxemia. Thank you. Clarification of your documentation is requested to better reflect the severity of illness and intensity of treatment of your patient. Indicators present [] Use of Home Oxygen [] Respiratory rate > 28 or <8/min (Labored respirations) [] PCO2 > 50 mm Hg or (Hypercapnia) (somnolence) [] PaO2 < 60 mm Hg or Hypoxemia (confusion) [] ABG blood gas pH < 7.35 [] SpO2 < 90% sat on Room Air [] Cyanosis [] Unable to Speak in Full Sentences [] Use of Accessory Muscles / Tripoding [] Wheezing [] Other: [] Location in the medical record that reflects the above clinical findings: [] Treatment Provided: [] PHYSICIAN'S RESPONSE Patient had episode of seizure and was intubated for airway protection on . Patient did develop hypercapnic hypoxic Resp Failure 0n 11/09/17 when she had cardiac arrest and developed bilateral Pneumothorax after CPR Based on your medical judgment of the clinical indicators outlined above, are you treating this patient for a known or suspected: [] Acute Respiratory Failure (hypoxia or hypercapnia) [] Chronic Respiratory Failure (hypoxia or hypercapnia) [] Acute on Chronic Respiratory Failure (hypoxia or hypercapnia) [] Hypoxemia please specify ACUTE, CHRONIC or ACUTE on CHRONIC [] Other []_ [] If unable to determine, please check the box, sign and date. Present On Admission (POA) Indicator: [] Present at the time of admission [] Not present at the time of admission [] Clinically Undetermined In responding to this query, please exercise your independent professional judgment. The fact that a question is asked does not imply that any particular answer is desired or expected. Thank you for your clarification on this documentation. If you have any questions please call:[ ] * Thank you, [ ] motor bike mechanic Chronic Respiratory Failure Description: Respiratory failure is a syndrome in which the respiratory system fails in one or both of its gas exchange functions: oxygenation and carbon dioxide elimination. In theory, respiratory failure is defined as a Pa02 value of <60 mm/Hg or a PaC02 of >50 mm/Hg. However, these values may be affected by renal compensation. Respiratory failure may be acute or chronic. While acute respiratory failure is characterized by life-threatening derangement in arterial blood gases and acid-base balance, the manifestations of chronic respiratory failure are less dramatic and may not be as readily apparent. Classifications: Respiratory failure may be classified as hypoxemic (usually characterized by Pa02 of <60 mm/Hg) or hypercapnic (usually characterized by PaC02 >50 mm/Hg) and either may be acute or chronic. Chronic hypercapnic respiratory failure develops over time and allows for renal compensation and an increase in bicarbonate concentration; therefore the pH is usually only slightly decreased. The distinction between acute and chronic hypoxemic respiratory failure cannot readily be made on the basis of ABGs; the clinical markers of chronic hypoxemia, such as polythycemia or cor pulmonale suggest a long standing disorder (chronic hypoxemic respiratory failure). Clinical Indicators: dyspnea at rest or "chronic" dyspnea, concomitant conditions such as polycythemia or cor pulmonale, requirement for continuous oxygen support, forced expiratory volume in one second (FEV1) of 49 or less, pursed lip breathing, "barrel" chest, hyperinflation by CXR, muscle wasting, malnutrition/obesity, poor exercise capacity, peripheral edema, description as a "blue bloater" (usually associated with chronic, obstructive bronchitis) or "pink puffer" (usually associated with emphysema) Risks: Chronic Hypoxemic Respiratory Failure - COPD, pulmonary fibrosis, asthma , pulmonary arterial hypertension, granulomatous lung diseases, congenital heart disease, bronchiectasis, kyphoscoliosis, obesity; Chronic Hypercapnic Respiratory Failure - COPD, severe asthma, myasthenia gravis, polyneuropathy, polio, head and cervical spine injuries, obesity hypoventilation syndrome. Treatment: supplemental oxygen, bronchodilators, corticosteroids, adequate nutrition, lung transplant References: Am. J. Respir. Crit. Care Med. "Global Strategy for the Diagnosis, Management and Prevention of COPD: GOLD Exectuive Summary," Merritt Ramírez Anzueto - 2007; Proceedings of the [place] [employer] "Mechanisms and Measurements of Dyspnea in COPD," Vishal - 2006; WebMD; Respiratory Failure, Raul Maldonado MD - 03/2006; Ridge's Principles of Internal Medicine, 17th edition. Acute Respiratory Failure Acute Respiratory Failure indicators include: ~Respirations >28 ~Air hunger ~Use of accessory muscles of respiration ~Inability to speak in full sentences Cyanosis ~Pulse ox <90% RA or <95% on O2 pH <7.35 or >7.45 ~pO2 < 60 mm Hg (or 10mm below COPD patient's baseline) ~pCO2 >50mm Hg (or 10mm above COPD patient's baseline) "Respiratory failure may be assigned as a principal diagnosis when it is the condition established after study to be chiefly responsible for occasioning admission to the hospital. The fact that the respiratory failure was managed without intubation and mechanical ventilation does not preclude its use." [facility], 3rd Qtr., 1988, p. 7 MTDD
== END 2017-11-13 18:30 | DRG 584 ==
LOC: ED 14:33 → ERH 17:09 → CCU 18:25 → 5RNO 11-06 17:15 → CCU 11-07 11:50 → 3RNO 11-11 22:46
PROVIDERS: ADMIT Internal Medicine; ATTEND Internal Medicine
PROC: 5A1955Z Respiratory Ventilation, Greater than 96 Consecutive Hours (ICD-10-PCS; 2017-11-07)
PROC: 0BH17EZ Insertion of Endotracheal Airway into Trachea, Via Natural or Artificial Opening (ICD-10-PCS; 2017-11-07)
PROC: 0W9B00Z Drainage of Left Pleural Cavity with Drainage Device, Open Approach (ICD-10-PCS; principal; 2017-11-09)
PROC: 5A12012 Performance of Cardiac Output, Single, Manual (ICD-10-PCS; 2017-11-09)
DX: A41.9 Sepsis, unspecified organism (principal); J18.9 Pneumonia, unspecified organism; Z99.11 Dependence on respirator [ventilator] status; N17.9 Acute kidney failure, unspecified; E46 Unspecified protein-calorie malnutrition; S27.0XXA Traumatic pneumothorax, initial encounter; J96.92 Respiratory failure, unspecified with hypercapnia; J96.91 Respiratory failure, unspecified with hypoxia; J44.0 Chronic obstructive pulmonary disease with (acute) lower respiratory infection; D69.59 Other secondary thrombocytopenia; J93.9 Pneumothorax, unspecified; E87.0 Hyperosmolality and hypernatremia; I46.9 Cardiac arrest, cause unspecified; E87.2 Acidosis; E87.5 Hyperkalemia; N18.6 End stage renal disease; F03.90 Unspecified dementia, unspecified severity, without behavioral disturbance, psychotic disturbance, mood disturbance, and anxiety; I12.0 Hypertensive chronic kidney disease with stage 5 chronic kidney disease or end stage renal disease; R56.9 Unspecified convulsions; N39.0 Urinary tract infection, site not specified; R09.02 Hypoxemia; E83.39 Other disorders of phosphorus metabolism; D63.1 Anemia in chronic kidney disease; R65.20 Severe sepsis without septic shock; Y95 Nosocomial condition; R62.7 Adult failure to thrive; D50.9 Iron deficiency anemia, unspecified; E78.5 Hyperlipidemia, unspecified; E86.0 Dehydration; G20 Parkinson's disease; I48.91 Unspecified atrial fibrillation; I70.0 Atherosclerosis of aorta; Z78.1 Physical restraint status; K21.9 Gastro-esophageal reflux disease without esophagitis; N25.81 Secondary hyperparathyroidism of renal origin; Z51.5 Encounter for palliative care; Z53.20 Procedure and treatment not carried out because of patient's decision for unspecified reasons; Z66 Do not resuscitate; Z86.73 Personal history of transient ischemic attack (TIA), and cerebral infarction without residual deficits; Z87.891 Personal history of nicotine dependence; H26.9 Unspecified cataract